=== PATIENT | male | born 1945 | race Caucasian/White ===

== ENCOUNTER 2023-05-29 11:20 | Observation (INO) | payer OTHER, SELFPAY ==
[2023-05-29] VITALS (8 sets, daily range): BP systolic 149–160; BP diastolic 54–106; PULSE 104–107; RESP 18–24; TEMP 36.2–36.8; O2SAT 89–92; BMI 43.4; BMI 46.2
--- NOTE | 2023-05-29 11:35 | XR_ITS ---
The [address] [address] Patient Name: HILARY WHARTON MRN: [id number] date: 1945 Sex: M Assigned Patient Location: ER Current Patient Location: Accession/Order Number: [id number] Exam Date: 05/29/2023 11:57 Report Date: 05/29/2023 12:50 At the request of: GIBRAN JOSUE Procedure: XR foot LT min 3V EXAM: XR foot LT min 3V, XR ankle LT min 3V HISTORY: Diabetic wound COMPARISON: None. FINDINGS: 3 radiographs of the left foot and 3 radiographs of the left ankle were obtained. No acute fracture or dislocation. Moderate degenerative changes to the left foot and left ankle. Soft tissue swelling over the lateral ankle. No cortical erosive changes. XR/XR foot LT min 3V IMPRESSION: Soft tissue swelling over the medial ankle and medial foot. No acute osseous abnormality. No cortical erosive changes. Electronically authenticated by: KHAI TILLMAN Date: 05/29/2023 12:50
--- NOTE | 2023-05-29 11:35 | XR_ITS ---
The [address] [address] Patient Name: HILARY WHARTON MRN: [id number] date: 1945 Sex: M Assigned Patient Location: ER Current Patient Location: Accession/Order Number: [id number] Exam Date: 05/29/2023 11:57 Report Date: 05/29/2023 12:50 At the request of: GIBRAN JOSUE Procedure: XR ankle LT min 3V EXAM: XR foot LT min 3V, XR ankle LT min 3V HISTORY: Diabetic wound COMPARISON: None. FINDINGS: 3 radiographs of the left foot and 3 radiographs of the left ankle were obtained. No acute fracture or dislocation. Moderate degenerative changes to the left foot and left ankle. Soft tissue swelling over the lateral ankle. No cortical erosive changes. XR/XR ankle LT min 3V IMPRESSION: Soft tissue swelling over the medial ankle and medial foot. No acute osseous abnormality. No cortical erosive changes. Electronically authenticated by: KHAI TILLMAN Date: 05/29/2023 12:50
--- NOTE | 2023-05-29 11:35 | ECG_ITS ---
The [facility] Test Date: 2023-05-29 Pat Name: HILARY WHARTON Department: Room: - Gender: Male Naturopathic Physician: : 1945 Requested By: IDALMIS AMATO Order Number: [id number] Reading MD: LIZET HAHN Measurements Intervals [place] Rate: 105 P: 30 TN: 188 QRS: -78 QRSD: 136 T: 72 QT: 368 QTc: 429 Interpretive Statements 1120 Sinus tachycardia 1970 with occasional ectopic premature complexes 2450 Right bundle branch block 2630 Left anterior fascicular block 9150 abnormal ECG Electronically Signed On 06-05-2023 23:06:50 EST by LIZET HAHN
--- NOTE | 2023-05-29 11:37 | ED.GENADUL1 ---
HPI - General Adult General Chief complaint: Skin/Abscess/Foreign Body Stated complaint: ILL Time Seen by Provider: 05/29/23 11:33 Source: family Mode of arrival: stretcher Limitations: no limitations History of Present Illness HPI narrative: 78-year-old male presents to the emergency department for a painful wound to his left foot. He does not know how long it has been there but it has been hurting for a month. There has been some drainage from it as well. No known fever. He is a poor historian. Related Data Allergies Allergy/AdvReac Type Severity Reaction Status Date / Time Tetanus Vaccines and Toxoid Allergy Unknown Verified 05/29/23 11:40 Review of Systems ROS Narrative Not obtainable, poor historian [facility] Medical History (Updated 05/29/23 @ 12:53 by Jack Kimbrough MD) History of hypothyroidism ?Z86.39 - Personal history of other endocrine, nutritional and metabolic disease (ICD-10) History of glaucoma ?Z86.69 - Personal history of other diseases of the nervous system and sense organs (ICD-10) History of CVA (cerebrovascular accident) ?Z86.73 - Personal history of transient ischemic attack (TIA), and cerebral infarction without residual deficits (ICD-10) History of hypertension ?Z86.79 - Personal history of other diseases of the circulatory system (ICD-10) History of COPD ?Z87.09 - Personal history of other diseases of the respiratory system (ICD-10) Diabetes ?E11.9 - Type 2 diabetes mellitus without complications (ICD-10) Exam Narrative Exam Narrative: Nurses note and vital signs reviewed and patient is not hypoxic. General: The patient appears in no apparent respiratory distress. Patient is resting comfortably on cart. Skin: Warm, dry, no pallor noted. There is no rash noted. Head: Normocephalic, atraumatic, thick neck Eye: Normal conjunctiva, no drainage Ears, Nose, Mouth, and Throat: oral mucosa is moist. Nares patent. Cardiovascular: Regular Rate and Rhythm Respiratory: Patient is in no distress, no accessory muscle use, lungs are clear to auscultation, no wheezing, rales or rhonchi GI: Morbidly obese, nontender Musculoskeletal: The patient appears to have chronic swelling in both lower extremities. Just distal to the left lateral malleolus is a nickel sized ulceration with surrounding erythema and a small amount of drainage at the center. He has various other healing wounds on both legs. There is no drainage from any of these. Neurological: Awake and alert Psychiatric: Cooperative Constitutional Vital Signs, click to edit/add: Last Vital Signs Temp 97.5 F L 05/29/23 11:27 Pulse 107 H 05/29/23 11:27 Resp 24 05/29/23 11:27 BP 156/85 H 05/29/23 11:27 Pulse Ox 89 L 05/29/23 12:27 O2 Del Method Room Air 05/29/23 12:27 Course Vital Signs Vital signs: Vital Signs Temperature 97.5 F L 05/29/23 11:27 Pulse Rate 107 H 05/29/23 11:27 Respiratory Rate 05/29/23 11:27 Blood Pressure 156/85 H 05/29/23 11:27 Pulse Oximetry 90 L 05/29/23 11:27 Oxygen Delivery Method Room Air 05/29/23 11:27 Temperature 97.5 F L 05/29/23 11:27 Pulse Rate 107 H 05/29/23 11:27 Respiratory Rate 05/29/23 11:27 Blood Pressure 156/85 H 05/29/23 11:27 Pulse Oximetry 89 L 05/29/23 12:27 Oxygen Delivery Method Room Air 05/29/23 12:27 Medical Decision Making MDM Narrative Medical decision making narrative: The patient has a diabetic foot infection. Cultures are taken and x-rays are pending. He is being given IV Zosyn and vancomycin and is being admitted. Findings are discussed with the patient and his family. I have also spoken to Dr. Du. Differential Diagnosis Differential Diagnosis: Diabetic foot infection, osteomyelitis, cellulitis Lab Data Lab results reviewed: Yes I reviewed the patient's lab results Labs: Lab Results 05/29/23 Range/Units 11:55 WBC 11.9 H (4.0-11.0) 10^3/uL RBC 5.27 (4.70-6.10) 10^6/uL Hgb 14.5 (14.0-18.0) g/dL Hct 48.5 (42.0-54.0) % MCV 92.0 (80.0-94.0) fL MCH 27.5 (25.9-34.0) pg MCHC 29.9 (29.9-35.2) g/dL RDW 13.9 (11.0-15.0) % Plt Count 246 (150-450) 10^3/uL MPV 9.8 (9.5-13.5) fL Neut % (Auto) 73.0 (43.0-75.0) % Lymph % (Auto) 15.5 L (20.5-60.0) % [place] % (Auto) 6.8 (1.7-12.0) % Eos % (Auto) 2.1 (0.9-7.0) % Baso % (Auto) 1.0 (0.2-2.0) % Neut # (Auto) 8.7 H (1.4-6.5) 10^3/uL Lymph # (Auto) 1.9 (1.2-3.8) 10^3/uL [place] # (Auto) 0.8 (0.3-0.8) 10^3/uL Eos # (Auto) 0.3 (0.0-0.7) 10^3/uL Baso # (Auto) 0.1 (0.0-0.1) 10^3/uL Abs Immat Gran (auto) 0.19 H (0.00-0.03) 10^3/uL Imm/Tot Granulo (auto) 1.6 H (0.0-0.5) % ESR 103 H (<=20) mm/hr Lactate 1.7 (0.4-2.0) mmol/L C-Reactive Protein 2.17 H (<=0.50) mg/dL Imaging Data Foot and ankle x-ray: My impression: No acute findings, radiologist's reading is pending. Discharge Plan Discharge Chief Complaint: Skin/Abscess/Foreign Body Clinical Impression: Diabetic foot infection Patient Disposition: Admitted As Inpatient Time of Disposition Decision: 12:53 Condition: Good Referrals: Shaheed Silva MD [Primary Care Provider] - 1 week
[2023-05-29 12:06] LABS: Basophils Absolute Auto 0.1 10^3/uL (0.0-0.1); Eosinophils Absolute Auto 0.3 10^3/uL (0.0-0.7); Eosinophils Percent Auto 2.1 % (0.9-7.0); Hematocrit 48.5 % (42.0-54.0); Hemoglobin 14.5 g/dL (14.0-18.0); Immature Granulocytes Abs Auto 0.19 10^3/uL (0.00-0.03); Immature Granulocytes Pct Auto 1.6 % (0.0-0.5); Lymphocytes Absolute Auto 1.9 10^3/uL (1.2-3.8); Lymphocytes Percent Auto 15.5 % (20.5-60.0); Mean Corpuscular HGB Conc 29.9 g/dL (29.9-35.2); Mean Corpuscular Hemoglobin 27.5 pg (25.9-34.0); Mean Platelet Volume 9.8 fL (9.5-13.5); Monocytes Absolute Auto 0.8 10^3/uL (0.3-0.8); Monocytes Percent Auto 6.8 % (1.7-12.0); Neutrophils Absolute Auto 8.7 10^3/uL (1.4-6.5); Platelet Count 246 10^3/uL (150-450); Red Blood Count 5.27 10^6/uL (4.70-6.10); Red Cell Distribution Width 13.9 % (11.0-15.0); White Blood Count 11.9 10^3/uL (4.0-11.0)
[2023-05-29 12:16] LABS: Erythrocyte Sedimentation Rate 103 mm/hr (<=20)
[2023-05-29 12:38] LABS: Lactate/Lactic Acid 1.7 mmol/L (0.4-2.0)
[2023-05-29 12:47] LABS: C Reactive Protein 2.17 mg/dL (<=0.50)
[2023-05-29 13:19] LABS: PROCALCITONIN 0.14 ng/mL (0.00-0.50)
[2023-05-29 13:26] LABS: Alanine Aminotransferase 39 U/L (16-63); Albumin Globulin Ratio 0.6; Albumin Level 2.7 g/dL (3.4-5.0); Alkaline Phosphatase 129 U/L (46-116); Anion Gap 14.2; Aspartate Amino Transferase 36 U/L (15-37); BUN Creatinine Ratio 12.3; Bilirubin Total 0.5 mg/dL (0.2-1.0); Calcium 9.3 mg/dL (8.5-10.1); Carbon Dioxide 29.6 mmol/L (21.0-32.0); Chloride 103 mmol/L (98-107); Estimated GFR (African America >60 (>=60); Estimated GFR (Non-African Ame 50 (>=60); Globulin 4.4 g/dL; Glucose 338 mg/dL (74-106); Potassium 4.8 mmol/L (3.5-5.1); Sodium 142 mmol/L (136-145); Total Protein 7.1 g/dL (6.4-8.2)
--- NOTE | 2023-05-29 13:52 | P.HP_ITS ---
H&P: HPI History of Present Illness Chief complaint: ILL Narrative: Patient had called the office earlier today. Patient having increasing swelling and pain in his left lower leg. She is looking at the wound it has been progressively getting worse she can see bone sticking out. So I recommended ER. In ER, does not appear to have bone protruding. But definite progression of his abscess and ulcer. Patient mated for IV antibiotics and wound therapy evaluation. Review of Systems ROS Status of ROS 10 or more systems reviewed and unremark able except as noted in history and below [facility] Medical History (Updated 05/29/23 @ 12:53 by Jack Kimbrough MD) History of hypothyroidism ?Z86.39 - Personal history of other endocrine, nutritional and metabolic disease (ICD-10) History of glaucoma ?Z86.69 - Personal history of other diseases of the nervous system and sense organs (ICD-10) History of CVA (cerebrovascular accident) ?Z86.73 - Personal history of transient ischemic attack (TIA), and cerebral infarction without residual deficits (ICD-10) History of hypertension ?Z86.79 - Personal history of other diseases of the circulatory system (ICD- 10) History of COPD ?Z87.09 - Personal history of other diseases of the respiratory system (ICD- 10) Diabetes ?E11.9 - Type 2 diabetes mellitus without complications (ICD-10) Meds Home Medications and Allergies Allergies Allergy/AdvReac Type Severity Reaction Status Date / Time Tetanus Vaccines and Toxoid Allergy Unknown Verified 05/29/23 11:40 Exam Constitutional Vital Signs, click to edit/add: Last Vital Signs Temp 97.5 F L 05/29/23 11:27 Pulse 107 H 05/29/23 11:27 Resp 24 05/29/23 11:27 BP 156/85 H 05/29/23 11:27 Pulse Ox 89 L 05/29/23 12:27 O2 Del Method Room Air 05/29/23 12:27 Documenting provider has reviewed patient's vital signs: yes Common normals: no apparent distress HENNY Common normals: normocephalic and head/scalp atraumatic (Left facial droop from old CVA) Chest Common normals: inspection of chest normal Respiratory Common normals: normal respiratory effort and no retractions Cardio Common normals: regular rhythm; irregular rate Rate: tachycardic Results Labs Labs: Short CBC 05/29/23 Range/Units 11:55 WBC 11.9 H (4.0-11.0) 10^3/uL Hgb 14.5 (14.0-18.0) g/dL Hct 48.5 (42.0-54.0) % Plt Count 246 (150-450) 10^3/uL BMP 05/29/23 11:55 Sodium 142 Potassium 4.8 Chloride 103 Carbon Dioxide 29.6 BUN 17.0 Creatinine 1.38 H Glucose 338 H Calcium 9.3 Liver Function 05/29/23 Range/Units 11:55 Total Bilirubin 0.5 (0.2-1.0) mg/dL AST 36 (15-37) U/L ALT 39 (16-63) U/L Alkaline Phosphatase 129 H (46-116) U/L Albumin 2.7 L (3.4-5.0) g/dL Assessment and Plan Assessment and Plan (1) Diabetic foot infection: Plan Sinus tachycardia, uncontrolled hypertension, leukocytosis, uncontrolled diabetes mellitus secondary to diabetic foot ulcer with acute kidney injury. IV antibiotics, consultation to wound management. Blood culture and wound cultures pending. Track CRPs and ESR daily. Poorly controlled diabetes mellitus-insulin sliding scale CVA with left-sided weakness. Patient may need rehab with prolonged IV antibiotics for this wound. Place patient consultation to social worker health services Hypertension-continue with home medications With the severity of his foot infection, poorly controlled diabetes, patient will require at least a 2 to 3-day hospitalization spanning more than [address] patient on inpatient status
[2023-05-29] MEDS: PIPERACILLIN SODIUM/TAZOBACTAM 3.375 GM in 0.9 % SODIUM CHLORIDE 50 ML IV ×2 (13:59→22:24)
[2023-05-29] MEDS: VANCOMYCIN HCL 2,000 MG in 0.9 % SODIUM CHLORIDE 500 ML 250 MG IV (14:12)
[2023-05-29 14:38] LABS: Erythrocyte Sedimentation Rate 112 mm/hr (<=20)
[2023-05-29 15:27] LABS: Lactate/Lactic Acid 1.9 mmol/L (0.4-2.0)
--- NOTE | 2023-05-29 16:07 | P.PODCN_ITS ---
[facility] - Podiatry Data of Consult Patient: new to practice Consult date: 05/29/23 Requesting physician: Shaheed Silva MD Primary care provider: Shaheed Silva MD Consult Narrative Reason for consult: Left ankle and heel heel ulcer, diabetic foot infection Narrative: 78-year-old male [facility] hypothyroid, hypertension COPD and uncontrolled diabetes presents to [facility] for worsening left lateral ankle and heel ulceration. States it has been present for about 1 month, believes it is from rubbing in the AFO. He is a poor historian, his provided most of the history. States they have not had any treatments for the wounds thus far. She became concerned as he was experiencing worsening pain and she was concerned for the appearance of the wound. He is wheelchair-bound and spends most of his time during the day in a wheelchair with the legs in dependent position and heels resting on the foot rest. He denies any constitutional symptoms at time of visit. cc:: CC: Shaheed Silva MD [facility] Medical History (Updated 05/29/23 @ 12:53 by Jack Kimbrough MD) History of hypothyroidism ?Z86.39 - Personal history of other endocrine, nutritional and metabolic disease (ICD-10) History of glaucoma ?Z86.69 - Personal history of other diseases of the nervous system and sense organs (ICD-10) History of CVA (cerebrovascular accident) ?Z86.73 - Personal history of transient ischemic attack (TIA), and cerebral infarction without residual deficits (ICD-10) History of hypertension ?Z86.79 - Personal history of other diseases of the circulatory system (ICD-10) History of COPD ?Z87.09 - Personal history of other diseases of the respiratory system (ICD- 10) Diabetes ?E11.9 - Type 2 diabetes mellitus without complications (ICD-10) Exam Narrative Exam Narrative: Vascular: DP and PT pulses faintly palpable bilaterally. CFT intact to digits. Skin temperature warm to proximal distal without focal increase. Venous stasis dermatitis of the bilateral lower extremities, erythema to the lateral ankle periwound region. 2+ pitting edema noted bilaterally. Neuro: Light touch and gross sensation diminished. Protective sensation diminished. Derm: Full-thickness ulceration left lateral ankle approximately 2 cm x 2 cm x 0.2 cm with fibrotic base. No active drainage. Negative probe to bone. Full- thickness ulceration left posterior heel, fibrogranular base central necrotic plug probing to subcutaneous layer. Negative probe to bone. No active drainage.. Ulcerative erythema to the lateral ankle and posterior heel. MSK: Strength and range of motion deferred. Left foot deformity noted with inversion of the hindfoot and plantarflexion of the ankle rest. He wears dropfoot AFO. No fluctuance crepitus or bogginess. No pain with calf or thigh compression. Constitutional Vital Signs, click to edit/add: Last Vital Signs Temp 97.5 F L 05/29/23 11:27 Pulse 106 H 05/29/23 14:45 Resp 20 05/29/23 14:45 BP 149/106 H 05/29/23 14:45 Pulse Ox 90 L 05/29/23 14:45 O2 Del Method Room Air 05/29/23 12:27 Assessment and Plan Assessment and Plan (1) Diabetic foot infection: Plan Patient examined evaluated. All findings discussed with patient all questions answered by satisfaction. Pertinent labs and imaging reviewed. WBC 11.9. ESR 112, CRP 217, glucose was over 300 today. Left ankle ulcer is 100% fibrotic, left heel ulcer mixed fibrogranular base, appears pressure related in nature. Negative probe to bone. No active drainage or purulence, however there is erythema in the EJ ulcerative region. Currently on IV Vanco and Zosyn. Discussed with patient and his that based on the appearance of the wounds I would recommend excisional debridement possible graft application in the operative room setting. Will discuss with Dr. Du in regards of timing, likely OR . LLE wounds dressed with Betadine moistened gauze, dry sterile dressing and light Wesley compression. . Educated on the importance of offloading pressure points at all times when resting. Will discuss with Dr. Du in regards to OR timing. Rest per primary, please call with questions or concerns.
[2023-05-29 18:29] LABS: Glucometer 247 mg/dL (74-106)
[2023-05-29] MEDS: INSULIN ASPART 300 UNIT/3 ML PEN SUBQ (19:25)
[2023-05-29 20:44] LABS: Glucometer 250 mg/dL (74-106)
[2023-05-30] VITALS (10 sets, daily range): BP systolic 119–154; BP diastolic 64–80; PULSE 85–102; RESP 14–24; TEMP 36.6–36.9; O2SAT 86–95
[2023-05-30 02:28] LABS: Bilirubin Urine NEGATIVE (NEGATIVE); Blood Urine MODERATE (NEGATIVE); Clarity Urine CLEAR (CLEAR); Color Urine YELLOW (YELLOW); Glucose Urine UA 500 mg/dL (NEGATIVE); Ketones Urine NEGATIVE (NEGATIVE); Leukocyte Esterase Urine NEGATIVE (NEGATIVE); Nitrite Urine NEGATIVE (NEGATIVE); Protein Urine >=300 mg/dL (NEG/TRACE); Specific Gravity Urine >=1.030 (1.005-1.025); Urobilinogen Urine 0.2 EU/dL (0.2-1.0); pH Urine 5.5 (5.0-9.0)
[2023-05-30 02:41] LABS: Urine Microscopic Indicated YES
[2023-05-30 02:43] LABS: Bacteria Urine NONE SEEN #/HPF (NONE SEEN); Cast Seen? NONE SEEN #/LPF (NONE SEEN); Crystals Seen? None Seen #/HPF (None Seen); Mucus Urine TRACE (NONE SEEN); RBC Urine 0-2 #/HPF (0-2); Squamous Epithelial Cell Urine NONE SEEN #/LPF (NONE/RARE); WBC Urine NONE SEEN #/HPF (NONE SEEN)
[2023-05-30] MEDS: PIPERACILLIN SODIUM/TAZOBACTAM 3.375 GM in 0.9 % SODIUM CHLORIDE 50 ML IV ×3 (05:32→21:26)
[2023-05-30 05:36] LABS: Basophils Absolute Auto 0.1 10^3/uL (0.0-0.1); Basophils Percent Auto 0.9 % (0.2-2.0); Eosinophils Absolute Auto 0.3 10^3/uL (0.0-0.7); Eosinophils Percent Auto 2.2 % (0.9-7.0); Hematocrit 47.6 % (42.0-54.0); Immature Granulocytes Abs Auto 0.16 10^3/uL (0.00-0.03); Immature Granulocytes Pct Auto 1.2 % (0.0-0.5); Lymphocytes Percent Auto 15.1 % (20.5-60.0); Mean Corpuscular HGB Conc 29.4 g/dL (29.9-35.2); Mean Corpuscular Hemoglobin 27.5 pg (25.9-34.0); Mean Corpuscular Volume 93.5 fL (80.0-94.0); Mean Platelet Volume 9.9 fL (9.5-13.5); Monocytes Absolute Auto 1.1 10^3/uL (0.3-0.8); Monocytes Percent Auto 8.5 % (1.7-12.0); Neutrophils Absolute Auto 9.3 10^3/uL (1.4-6.5); Neutrophils Percent Auto 72.1 % (43.0-75.0); Platelet Count 251 10^3/uL (150-450); Red Blood Count 5.09 10^6/uL (4.70-6.10); Red Cell Distribution Width 13.9 % (11.0-15.0)
[2023-05-30 06:01] LABS: Alanine Aminotransferase 35 U/L (16-63); Albumin Globulin Ratio 0.6; Albumin Level 2.3 g/dL (3.4-5.0); Alkaline Phosphatase 103 U/L (46-116); Anion Gap 12.4; Aspartate Amino Transferase 25 U/L (15-37); BUN Creatinine Ratio 11.6; Bilirubin Total 0.4 mg/dL (0.2-1.0); Carbon Dioxide 28.6 mmol/L (21.0-32.0); Chloride 102 mmol/L (98-107); Estimated GFR (African America >60 (>=60); Estimated GFR (Non-African Ame 54 (>=60); Globulin 3.9 g/dL; Glucose 268 mg/dL (74-106); Sodium 139 mmol/L (136-145); Total Protein 6.2 g/dL (6.4-8.2)
[2023-05-30 06:06] LABS: C Reactive Protein 2.53 mg/dL (<=0.50)
[2023-05-30 06:28] LABS: Erythrocyte Sedimentation Rate 87 mm/hr (<=20)
[2023-05-30 07:23] LABS: Glucometer 248 mg/dL (74-106)
[2023-05-30] MEDS: LEVOTHYROXINE SODIUM 100 MCG TABLET PO (07:51)
[2023-05-30] MEDS: INSULIN ASPART 300 UNIT/3 ML PEN SUBQ ×4 (07:52→21:28)
--- NOTE | 2023-05-30 07:53 | PM.PN ---
Progress Note: Subjective Subjective Interval history: Patient admitted yesterday for worsening left heel & ankle ulcerations. patient relates pain primarily to his heel. He does not follow with a wound center. He denies systemic signs of infection Exam Narrative Exam Narrative: Vascular: DP and PT pulses faintly palpable bilaterally. CFT intact to digits. Skin temperature warm to proximal distal without focal increase. 1 cm of surrounding erythema Neuro: Light touch and gross sensation diminished. Protective sensation diminished. Derm: Full-thickness ulceration left lateral ankle approximately with fibrotic base. Negative probe to bone. and no drainage or malodor Full-thickness ulceration left posterior heel, fibrogranular base. negative probe to bone and no drainage or malodor MSK: no pain on palpation. No fluctuance. Active range of motion of the ankle and foot elicits no pain. Passive intact range of motion of the toes elicits no pain Constitutional Vital Signs, click to edit/add: Last Vital Signs Temp 98.0 F 05/30/23 07:45 Pulse 98 H 05/30/23 07:45 Resp 16 05/30/23 07:45 BP 131/80 05/30/23 07:45 Pulse Ox 91 L 05/30/23 07:45 O2 Del Method Room Air 05/30/23 07:45 O2 Flow Rate 2 05/30/23 05:06 Progress Note: Objective Labs Labs: Short CBC 05/29/23 05/30/23 Range/Units 11:55 04:53 WBC 11.9 H 13.0 H (4.0-11.0) 10^3/uL Hgb 14.5 14.0 (14.0-18.0) g/dL Hct 48.5 47.6 (42.0-54.0) % Plt Count 246 251 (150-450) 10^3/uL BMP 05/29/23 05/30/23 11:55 04:53 Sodium 142 139 Potassium 4.8 4.0 Chloride 103 102 Carbon Dioxide 29.6 28.6 BUN 17.0 15.0 Creatinine 1.38 H 1.29 Glucose 338 H 268 H Calcium 9.3 9.0 Liver Function 05/29/23 05/30/23 Range/Units 11:55 04:53 Total Bilirubin 0.5 0.4 (0.2-1.0) mg/dL AST 36 25 (15-37) U/L ALT 39 35 (16-63) U/L Alkaline Phosphatase 129 H 103 (46-116) U/L Albumin 2.7 L 2.3 L (3.4-5.0) g/dL Urine 05/30/23 Range/Units 02:23 Urine Color Yellow (YELLOW) Urine Clarity Clear (CLEAR) Urine pH 5.5 (5.0-9.0) Ur Specific [place] >=1.030 A (1.005-1.025) Urine Protein >=300 A (NEG/TRACE) mg/dL Urine Glucose (UA) 500 A (NEGATIVE) mg/dL Progress Note: A&P Assessment and Plan (1) Diabetic foot infection: (2) Pressure ulcer, heel, left, unstageable: Assessment and Plan: offloading with elevation and application of Santyl daily Dressing changes daily avoid Wesley wraps and dressings should be loosely applied (3) Pressure ulcer, ankle, left, unstageable: (4) Cellulitis of left foot: Assessment and Plan: MRI of the foot was reviewed which is negative for osteomyelitis of the heel. Lateral ankle was not visualized. Plan patient seen and evaluated. I communicated my plan with Dr. Silva Recommended local wound care with Santyl and offloading - bony boot to be applied when in bed wound may be washed with soap and water Weightbearing as tolerated no surgical intervention planned will follow Urinary Catheter Management Urinary Catheter Management Urethral: Cath placed during this visit: yes Urethral indwelling: No Insertion date: 05/29/23 Insertion time: 23:53
[2023-05-30] MEDS: PROSTAT 15 GM PROTEIN/100 CAL 30 ML LIQUID PACKET PO ×2 (09:21→19:44)
[2023-05-30] MEDS: VENLAFAXINE HCL ER 150 MG CAPSULE PO (09:21)
[2023-05-30] MEDS: INSULIN DETEMIR 300 UNIT/3 ML INSULN.PEN 20 UNIT SQ (09:22)
[2023-05-30] MEDS: ENSURE HP 237 ML LIQUID PO ×2 (09:22→19:44)
[2023-05-30] MEDS: OMEPRAZOLE 40 MG CAPSULE.DR PO (09:22)
[2023-05-30] MEDS: TIMOLOL MALEATE 0.5% OP SOL 100 DROPS/5 ML BOTTLE 1 DROP OP (09:22)
[2023-05-30] MEDS: JUVEN PACKET 1 PACKET PO ×2 (09:23→19:44)
[2023-05-30] MEDS: APIXABAN 5 MG TABLET 2.5 MG PO ×2 (09:23→19:44)
--- NOTE | 2023-05-30 09:29 | XR_ITS ---
The [address] [address] Patient Name: HILARY WHARTON MRN: [id number] date: 1945 Sex: M Assigned Patient Location: MS Current Patient Location: MS Accession/Order Number: [id number] Exam Date: 05/30/2023 12:00 Report Date: 05/30/2023 12:40 At the request of: IDALMIS AMATO Procedure: XR chest 2V EXAMINATION: XR chest 2V HISTORY: mejia ; shortness of breath with exertion COMPARISON: XR chest 06/05/2021 FINDINGS: LUNGS: Underexpanded lungs with mild stranding bilaterally and slight peripheral septal thickening. Asymmetric mild opacity of left lung. VASCULATURE: No increased pulmonary vasculature. PLEURA: No pneumothorax, effusion, or pleural thickening. CARDIAC: No cardiomegaly or cardiac silhouette abnormality. MEDIASTINUM: Chronic widening, likely due to supine position during imaging. BONES: No fracture or visible bone lesion. OTHER: Negative. XR/XR chest 2V IMPRESSION: 1. Suspect bilateral pulmonary edema, left greater than right. Multifocal infectious infiltrates is not completely excluded. Electronically authenticated by: GRAHAM SCHWARTZ Date: 05/30/2023 12:40
--- NOTE | 2023-05-30 09:29 | MR_ITS ---
The [address] [address] Patient Name: HILARY WHARTON MRN: [id number] date: 1945 Sex: M Assigned Patient Location: MS Current Patient Location: MS Accession/Order Number: [id number] Exam Date: 05/30/2023 11:10 Report Date: 05/30/2023 12:46 At the request of: IDALMIS AMATO Procedure: MR foot LT wo con HISTORY: The patient reportedly has a history of diabetes and has a wound along the plantar and lateral aspect of the left heel. Evaluate for possible osteomyelitis. MR foot LT wo con: 05/30/2023 11:10 AM EST COMPARISON: Radiographs left foot 05/29/2023. TECHNIQUE: Multiplanar, multisequence MRI images of the left foot were obtained without contrast. FINDINGS: A few images are slightly degraded by motion artifact. The major ligaments of the ankle appear grossly intact. The bone marrow signal intensity is age appropriate. There is severe atrophy of the musculature of the foot which is most compatible with the sequela of a long-standing peripheral neuropathy. There appears to be a small superficial soft tissue ulcer along the plantar and lateral aspect of the heel with edema-like stranding of the adjacent subcutaneous fat no focal fluid signal intensity collection is seen. There appear to be at least mild degenerative changes of the first MTP joint. On the sagittal images there appears to be a probable nondisplaced transverse fracture of the neck of the second metatarsal with surrounding bone marrow edema in this region. There also appears to be bone marrow edema within the base of the second proximal phalanx. There are hammertoe deformities. MR/MR foot LT wo con IMPRESSION: 1. There appears to be a small superficial soft tissue ulcer along the plantar and lateral aspect of the heel with adjacent subcutaneous edema which may be due to a cellulitis. However, no soft tissue abscess or MRI evidence of osteomyelitis is seen in this region. 2. There appears to be a probable nondisplaced transverse fracture of the neck of the second metatarsal with surrounding bone marrow edema and a probable bone contusion within the base of the second proximal phalanx. 3. There is severe atrophy of the musculature of the foot which is most compatible with the sequela of a long-standing peripheral neuropathy. 4. Please note that this examination is slightly degraded by motion artifact. Electronically authenticated by: IDALMIS IRVING Date: 05/30/2023 12:46
--- NOTE | 2023-05-30 09:31 | P.PN_ITS ---
Progress Note: Subjective Subjective Interval history: He was still some significant soreness at the heel and ankle. Open wounds as outlined by wound consultation team Exam Constitutional Vital Signs, click to edit/add: Last Vital Signs Temp 98.0 F 05/30/23 07:45 Pulse 98 H 05/30/23 07:45 Resp 16 05/30/23 07:45 BP 131/80 05/30/23 07:45 Pulse Ox 91 L 05/30/23 07:45 O2 Del Method Room Air 05/30/23 07:45 O2 Flow Rate 2 05/30/23 05:06 Documenting provider has reviewed patient's vital signs: yes Common normals: no apparent distress HENMT Common normals: normocephalic and head/scalp atraumatic (Left facial droop from old CVA) Chest Common normals: inspection of chest normal Respiratory Common normals: normal respiratory effort and no retractions Auscultation: rhonchi and wheezes Cardio Common normals: regular rhythm; irregular rate Rate: tachycardic Progress Note: Objective Labs Labs: Short CBC 05/29/23 05/30/23 Range/Units 11:55 04:53 WBC 11.9 H 13.0 H (4.0-11.0) 10^3/uL Hgb 14.5 14.0 (14.0-18.0) g/dL Hct 48.5 47.6 (42.0-54.0) % Plt Count 246 251 (150-450) 10^3/uL BMP 05/29/23 05/30/23 11:55 04:53 Sodium 142 139 Potassium 4.8 4.0 Chloride 103 102 Carbon Dioxide 29.6 28.6 BUN 17.0 15.0 Creatinine 1.38 H 1.29 Glucose 338 H 268 H Calcium 9.3 9.0 Liver Function 05/29/23 05/30/23 Range/Units 11:55 04:53 Total Bilirubin 0.5 0.4 (0.2-1.0) mg/dL AST 36 25 (15-37) U/L ALT 39 35 (16-63) U/L Alkaline Phosphatase 129 H 103 (46-116) U/L Albumin 2.7 L 2.3 L (3.4-5.0) g/dL Urine 05/30/23 Range/Units 02:23 Urine Color Yellow (YELLOW) Urine Clarity Clear (CLEAR) Urine pH 5.5 (5.0-9.0) Ur Specific [place] >=1.030 A (1.005-1.025) Urine Protein >=300 A (NEG/TRACE) mg/dL Urine Glucose (UA) 500 A (NEGATIVE) mg/dL Progress Note: A&P Assessment and Plan (1) Diabetic foot infection: Plan Sinus tachycardia, uncontrolled hypertension, leukocytosis, uncontrolled diabetes mellitus secondary to diabetic foot ulcer with acute kidney injury. 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 Hypertension-continue with home medications With the severity of his foot infection, poorly controlled diabetes, patient will require at least a 1-2 more-day hospitalization spanning more than [address] patient on inpatient status-checking MRI scan today, possible surgical intervention ? Urinary Catheter Management Urinary Catheter Management Urethral: Cath placed during this visit: yes Urethral indwelling: No Insertion date: 05/29/23 Insertion time: 23:53
--- NOTE | 2023-05-30 09:31 | CM.NOTE ---
Rounds made with Dr. Silva, discussed with pt about skilled therapy at discharge. Pt is in agreement with skilled, PT and OT will evaluate pt. Pt's choice would be to go to [facility]. He wants to be able to continue to see Dr. Silva.
--- NOTE | 2023-05-30 09:56 | SWNOTE1 ---
MURPHY spoke to case mangement and pt will need SNF and he has chosen [facility] since he has been there in the past. MURPHY to send referral. He will be a precert.
[2023-05-30] MEDS: VANCOMYCIN HCL 1,500 MG in 0.9 % SODIUM CHLORIDE 500 ML 250 MG IV (10:38)
[2023-05-30 10:55] LABS: Glucometer 245 mg/dL (74-106)
--- NOTE | 2023-05-30 12:29 | SWNOTE1 ---
MURPHY sent referral to [facility]. Referral included face sheet, ER note, physician notes, labs, vitals, nursing notes, med list, and OT note.
--- NOTE | 2023-05-30 13:56 | SWNOTE1 ---
[facility] able [facility]. [facility] is aware pt will be going to surgery tomorrow. Will need PT/OT for precert. SW will send once PT eval is in.
[2023-05-30 15:58] LABS: Glucometer 222 mg/dL (74-106)
--- NOTE | 2023-05-30 16:13 | SWNOTE1 ---
MURPHY sent over PT/OT notes to [facility].
[2023-05-30] MEDS: IPRATROPIUM/ALBUTEROL SULFATE 3 ML AMPUL.NEB IH ×2 (16:26→23:36)
[2023-05-30 18:46] LABS: Bilirubin Urine SMALL (NEGATIVE); Blood Urine LARGE (NEGATIVE); Clarity Urine CLEAR (CLEAR); Color Urine BROWN (YELLOW); Glucose Urine UA 500 mg/dL (NEGATIVE); Ketones Urine TRACE mg/dL (NEGATIVE); Leukocyte Esterase Urine NEGATIVE (NEGATIVE); Nitrite Urine NEGATIVE (NEGATIVE); Protein Urine >=300 mg/dL (NEG/TRACE); Specific Gravity Urine 1.025 (1.005-1.025)
[2023-05-30 18:55] LABS: RBC Urine >100 #/HPF (0-2); WBC Urine 0-2 #/HPF (NONE SEEN)
[2023-05-30 18:56] LABS: Bacteria Urine SMALL #/HPF (NONE SEEN); Cast Seen? NONE SEEN #/LPF (NONE SEEN); Crystals Seen? None Seen #/HPF (None Seen); Mucus Urine NONE SEEN (NONE SEEN); Squamous Epithelial Cell Urine NONE SEEN #/LPF (NONE/RARE); Urine Culture Indicated ALREADY ORDERED
[2023-05-30] MEDS: LACTATED RINGER'S SOLUTION 1,000 ML 125 ML IV (19:45)
[2023-05-30 21:23] LABS: Glucometer 185 mg/dL (74-106)
[2023-05-30] MEDS: LATANOPROST 0.005% 2.5 ML BOTTLE 1 DROP OP (21:27)
[2023-05-31 03:49] VITALS: BP 130/81; PULSE 93; RESP 20; TEMP 36.7; O2SAT 90
[2023-05-31] MEDS: VANCOMYCIN HCL 1,500 MG in 0.9 % SODIUM CHLORIDE 500 ML 250 MG IV (03:53)
[2023-05-31] MEDS: LEVOTHYROXINE SODIUM 100 MCG TABLET PO (03:56)
[2023-05-31] MEDS: LACTATED RINGER'S SOLUTION 1,000 ML 125 ML IV (03:57)
[2023-05-31 04:19] VITALS: PULSE 98; RESP 20; O2SAT 93
[2023-05-31] MEDS: IPRATROPIUM/ALBUTEROL SULFATE 3 ML AMPUL.NEB IH ×2 (04:19→12:01)
[2023-05-31 05:04] LABS: Basophils Absolute Auto 0.1 10^3/uL (0.0-0.1); Basophils Percent Auto 0.8 % (0.2-2.0); Eosinophils Absolute Auto 0.4 10^3/uL (0.0-0.7); Eosinophils Percent Auto 2.9 % (0.9-7.0); Hematocrit 45.9 % (42.0-54.0); Hemoglobin 13.4 g/dL (14.0-18.0); Immature Granulocytes Abs Auto 0.17 10^3/uL (0.00-0.03); Immature Granulocytes Pct Auto 1.3 % (0.0-0.5); Lymphocytes Absolute Auto 2.2 10^3/uL (1.2-3.8); Lymphocytes Percent Auto 17.1 % (20.5-60.0); Mean Corpuscular HGB Conc 29.2 g/dL (29.9-35.2); Mean Corpuscular Hemoglobin 27.7 pg (25.9-34.0); Mean Corpuscular Volume 94.8 fL (80.0-94.0); Mean Platelet Volume 9.9 fL (9.5-13.5); Monocytes Absolute Auto 1.2 10^3/uL (0.3-0.8); Monocytes Percent Auto 9.3 % (1.7-12.0); Neutrophils Absolute Auto 8.8 10^3/uL (1.4-6.5); Neutrophils Percent Auto 68.6 % (43.0-75.0); Platelet Count 242 10^3/uL (150-450); Red Blood Count 4.84 10^6/uL (4.70-6.10); Red Cell Distribution Width 14.2 % (11.0-15.0); White Blood Count 12.9 10^3/uL (4.0-11.0)
[2023-05-31 05:26] LABS: Erythrocyte Sedimentation Rate 120 mm/hr (<=20)
[2023-05-31 05:42] LABS: Alanine Aminotransferase 27 U/L (16-63); Albumin Globulin Ratio 0.6; Albumin Level 2.2 g/dL (3.4-5.0); Alkaline Phosphatase 100 U/L (46-116); Anion Gap 11.2; Aspartate Amino Transferase 18 U/L (15-37); BUN Creatinine Ratio 18.9; Bilirubin Total 0.4 mg/dL (0.2-1.0); Calcium 9.1 mg/dL (8.5-10.1); Chloride 106 mmol/L (98-107); Estimated GFR (African America >60 (>=60); Estimated GFR (Non-African Ame 55 (>=60); Glucose 204 mg/dL (74-106); Potassium 4.2 mmol/L (3.5-5.1); Sodium 143 mmol/L (136-145); Total Protein 6.2 g/dL (6.4-8.2)
[2023-05-31 05:56] LABS: C Reactive Protein 3.87 mg/dL (<=0.50)
[2023-05-31] MEDS: PIPERACILLIN SODIUM/TAZOBACTAM 3.375 GM in 0.9 % SODIUM CHLORIDE 50 ML IV (05:59)
--- NOTE | 2023-05-31 08:11 | PM.PN ---
Progress Note: Subjective Subjective Interval history: Patient admitted yesterday for worsening left heel & ankle ulcerations. patient relates pain primarily to his heel. He does not follow with a wound center. He denies systemic signs of infection Exam Constitutional Vital Signs, click to edit/add: Last Vital Signs Temp 98.0 F 05/31/23 03:49 Pulse 98 H 05/31/23 04:19 Resp 20 05/31/23 04:19 BP 130/81 05/31/23 03:49 Pulse Ox 93 L 05/31/23 04:19 O2 Del Method Nasal Cannula 05/31/23 04:19 O2 Flow Rate 2 05/31/23 04:19 Progress Note: Objective Labs Labs: Short CBC 05/31/23 Range/Units 04:31 WBC 12.9 H (4.0-11.0) 10^3/uL Hgb 13.4 L (14.0-18.0) g/dL Hct 45.9 (42.0-54.0) % Plt Count 242 (150-450) 10^3/uL BMP 05/31/23 04:31 Sodium 143 Potassium 4.2 Chloride 106 Carbon Dioxide 30.0 BUN 24.0 H Creatinine 1.27 Glucose 204 H Calcium 9.1 Liver Function 05/31/23 Range/Units 04:31 Total Bilirubin 0.4 (0.2-1.0) mg/dL AST 18 (15-37) U/L ALT 27 (16-63) U/L Alkaline Phosphatase 100 (46-116) U/L Albumin 2.2 L (3.4-5.0) g/dL Urine 05/30/23 Range/Units 15:00 Urine Color Brown A (YELLOW) Urine Clarity Clear (CLEAR) Urine pH 6.0 (5.0-9.0) Ur Specific [place] 1.025 (1.005-1.025) Urine Protein >=300 A (NEG/TRACE) mg/dL Urine Glucose (UA) 500 A (NEGATIVE) mg/dL Progress Note: A&P Assessment and Plan (1) Diabetic foot infection: (2) Pressure ulcer, heel, left, unstageable: (3) Pressure ulcer, ankle, left, unstageable: (4) Cellulitis of left foot: Urinary Catheter Management Urinary Catheter Management Urethral: Cath placed during this visit: yes Urethral indwelling: No Insertion date: 05/29/23 Insertion time: 23:53
[2023-05-31] MEDS: FUROSEMIDE 40 MG/4 ML VIAL IVP (08:52)
[2023-05-31] MEDS: COLLAGENASE CLOSTRIDIUM HIST. 250 UNITS/GM 30 GRAM TUBE 1 APPLIC TOPICAL (08:53)
[2023-05-31] MEDS: TIMOLOL MALEATE 0.5% OP SOL 100 DROPS/5 ML BOTTLE 1 DROP OP (08:54)
[2023-05-31] MEDS: INSULIN ASPART 300 UNIT/3 ML PEN SUBQ ×2 (08:56→11:54)
[2023-05-31] MEDS: VENLAFAXINE HCL ER 150 MG CAPSULE PO (09:00)
[2023-05-31] MEDS: OMEPRAZOLE 40 MG CAPSULE.DR PO (09:01)
[2023-05-31] MEDS: INSULIN DETEMIR 300 UNIT/3 ML INSULN.PEN 20 UNIT SQ (09:03)
[2023-05-31 11:17] LABS: Glucometer 212 mg/dL (74-106)
[2023-05-31 12:05] VITALS: O2SAT 90
--- NOTE | 2023-05-31 12:21 | P.DS_ITS ---
DS: Providers Provider Date of admission: 05/29/23 15:20 Primary care physician: Shaheed Silva MD Consults: 05/29/23 13:43 Consult to Business Consult Routine Reason for consult:: Custodial Other reason:: Start precert today Consult to Wound Care Routine Consulting Provider: Jona Fisher Reason for consultation: ulcer Has provider been notified: No 05/29/23 13:46 Occupational Therapy Eval and Treat Routine Reason for consultation: Only if needed for Rehab Has provider been notified: No Physical Therapy Eval and Treat Routine Reason for consultation: Eval and Treat Has provider been notified: No DS: Diagnosis Discharge Diagnosis (1) Diabetic foot infection: (2) Pressure ulcer, heel, left, unstageable: (3) Pressure ulcer, ankle, left, unstageable: (4) Cellulitis of left foot: DS: Summary Hospital Course Hospital Course: Patient was admitted with failed outpatient treatment of his diabetic foot ulcer, poorly controlled diabetes mellitus, treated with aggressive with IV antibiotics. At the time of admission both I and the brand marketing manager felt this was likely to progress despite intensive medical treatment. However over the first 24 hours the wound did appear to be much improved. Initial thought was for surgical intervention and placement was placed on the operating room schedule, that was canceled today as wound has continued to look better since admission. No further debridement was necessary. This patient will be continue to be followed as an outpatient through the wound clinic. That was the treatment prior to coming into the emergency room that was failing at the time. Discussion versus placement versus home, patient would prefer to be at home and I would agree. Sugars are still uncontrolled but we can manage that part at home, he is to see wound therapy next week. Patient definitely improved faster than anticipated again if surgery was initially anticipated and that has been deemed to be not necessary. Patient will be discharged home in improving condition. Medications see list. Follow-up with me next week and podiatry/wound next week as well Time Spent with Patient Time attestation: Total time spent providing and/or coordinating discharge services: Exam Constitutional Vital Signs, click to edit/add: Last Vital Signs Temp 98.0 F 05/31/23 03:49 Pulse 98 H 05/31/23 04:19 Resp 20 05/31/23 04:19 BP 130/81 02/15/24 03:49 Pulse Ox 90 L 05/31/23 12:05 O2 Del Method Room Air 05/31/23 12:05 O2 Flow Rate 2 05/31/23 04:19 Documenting provider has reviewed patient's vital signs: yes Common normals: no apparent distress HENMT Common normals: normocephalic and head/scalp atraumatic (Left facial droop from old CVA) Chest Common normals: inspection of chest normal Respiratory Common normals: normal respiratory effort and no retractions Auscultation: rhonchi and wheezes Cardio Common normals: regular rhythm; irregular rate Rate: tachycardic DS: Data Data Completed and Pending Labs on day of discharge: Labs from last 24 hours 05/31/23 05/31/23 05/30/23 11:16 04:31 21:12 WBC 12.9 H RBC 4.84 Hgb 13.4 L Hct 45.9 MCV 94.8 H MCH 27.7 MCHC 29.2 L RDW 14.2 Plt Count 242 MPV 9.9 Neut % (Auto) 68.6 Lymph % (Auto) 17.1 L Sam[place] % (Auto) 9.3 Eos % (Auto) 2.9 Baso % (Auto) 0.8 Neut # (Auto) 8.8 H Lymph # (Auto) 2.2 Sampson # (Auto) 1.2 H Eos # (Auto) 0.4 Baso # (Auto) 0.1 Abs Immat Gran (auto) 0.17 H Imm/Tot Granulo (auto) 1.3 H ESR 120 H Sodium 143 Potassium 4.2 Chloride 106 Carbon Dioxide 30.0 Anion Gap 11.2 BUN 24.0 H Creatinine 1.27 Est GFR ( Amer) >60 Est GFR (Non-Af Amer) 55 L BUN/Creatinine Ratio 18.9 Glucose 204 H Calcium 9.1 Total Bilirubin 0.4 AST 18 ALT 27 Alkaline Phosphatase 100 C-Reactive Protein 3.87 H NT-Pro-B Natriuret Pep 810.0 Total Protein 6.2 L Albumin 2.2 L Globulin 4.0 Albumin/Globulin Ratio 0.6 Urine Color Urine Clarity Urine pH Ur Specific [place] Urine Protein Urine Glucose (UA) Urine Ketones Urine Occult Blood Urine Nitrite Urine Bilirubin Urine Urobilinogen Ur Leukocyte Esterase Urine RBC Urine WBC Ur Squamous Epith Cells Urine Crystals Urine Bacteria Urine Casts Urine Mucus Urine Yeast Ur Culture Indicated? POC Glucose 212 H 185 H 05/30/23 05/30/23 15:57 15:00 WBC RBC Hgb Hct MCV MCH MCHC RDW Plt Count MPV Neut % (Auto) Lymph % (Auto) Sampson % (Auto) Eos % (Auto) Baso % (Auto) Neut # (Auto) Lymph # (Auto) Sampson # (Auto) Eos # (Auto) Baso # (Auto) Abs Immat Gran (auto) Imm/Tot Granulo (auto) ESR Sodium Potassium Chloride Carbon Dioxide Anion Gap BUN Creatinine Est GFR ( Amer) Est GFR (Non-Af Amer) BUN/Creatinine Ratio Glucose Calcium Total Bilirubin AST ALT Alkaline Phosphatase C-Reactive Protein NT-Pro-B Natriuret Pep Total Protein Albumin Globulin Albumin/Globulin Ratio Urine Color Brown A Urine Clarity Clear Urine pH 6.0 Ur Specific [place] 1.025 Urine Protein >=300 A Urine Glucose (UA) 500 A Urine Ketones Trace A Urine Occult Blood Large A Urine Nitrite Negative Urine Bilirubin Small A Urine Urobilinogen 1.0 Ur Leukocyte Esterase Negative Urine RBC >100 A Urine WBC 0-2 A Ur Squamous Epith Cells None seen Urine Crystals None seen Urine Bacteria Small A Urine Casts None seen Urine Mucus None seen Urine Yeast Seen A Ur Culture Indicated? Already ordered POC Glucose 222 H Preliminary micro results at discharge 05/29/23 11:55 Wound Culture - Preliminary Ankle - Wound Enterococcus faecalis Enterobacter hormaechei Klebsiella pneumoniae Discharge Plan Discharge Disposition: Home Health Service Condition: Good Discharge Medications: New doxycycline monohydrate 100 mg capsule 100 mg PO BID 28 Days Qty: 56 0RF amoxicillin-pot clavulanate 875-125 mg tablet 1 tab PO Q12H Qty: 56 0RF Continued Eliquis 2.5 mg tablet 2.5 mg PO Q12H pantoprazole 40 mg tablet,delayed release (DR/EC) 40 mg PO DAILY levothyroxine 100 mcg tablet 100 mcg PO DAILY venlafaxine 150 mg capsule,extended release 24hr 150 mg PO DAILY timolol maleate 0.5 % drops 1 drp OPHTHALMIC (EYE) DAILY latanoprost 0.005 % drops 1 drp OPHTHALMIC (EYE) BEDTIME insulin glargine [Lantus Solostar U-100 Insulin] 100 unit/mL (3 mL) insulin pen 20 unit SUBCUT DAILY Novolin N FlexPen 100 unit/mL (3 mL) insulin pen 8 unit SUBCUT BEDTIME Rx Instructions: 12 units subcutaneously in AM; Patient Instructions: Doxycycline (By mouth), Amoxicillin/Clavulanate Potassium (By mouth) Forms: Portal Instructions Follow Up Appointments: @ [facility] [address] [place] [address]
--- NOTE | 2023-05-31 12:29 | SWNOTE1 ---
Pt has decided he wants to go home and does not want to go to [facility]. He would like to do home health. He was supposed to have home health, not sure of company. He would like SW to call . SW to call.
--- NOTE | 2023-05-31 12:48 | SWNOTE1 ---
MURPHY spoke to pt's . She will get his room ready for him to return home. She is working on getting palliative care at the home. She would like to use [facility]. MURPHY sent face sheet, ER notes, podiatry notes, phsyician notes, and PT/OT to [facility].
--- NOTE | 2023-05-31 13:11 | PT.DAILY ---
Physical Therapy Daily Note PT Daily Note/Assess Start: 05/30/23 14:28 Freq: Status: Active Protocol: Document 05/31/23 11:20 SHERRY (Rec: 05/31/23 13:11 [email or web address] [id number]) Physical Therapy Daily Note/Assessment Time In/Time Out Time In 11:20 Time Out 11:50 Subjective Subjective Patient reports wanting to go home now vs SNF. Is willing to get up, back is hurting in bed. Therapeutic Activity Time Therapeutic Activity Minutes (minutes) 25 Therapeutic Activity Units 2 Therapeutic Activity Treatment Therapeutic Activity Comments Supine to sit to R side ( strong side) min assist x 1 and mod assist x1. Initially required mod assist to maintain unsupported seated balance, but once with bearings was able to maintain with supervision. Seated exercises performed in unsupported seated position from edge of bed 10 reps. Sit to stand x2 with min assist x2 Sit to supine mod assist x2. Total Physical Therapy Time Total Therapy Minutes 25 Total Physical Therapy Units 2 Summary Daily Note Summary Improved ability with bed mobility and transfers. Patient reports helps him with these at home, as he only pivots to power chair. Patient would benefit from PT if going home to improve strength and ease of transfers .
--- NOTE | 2023-05-31 13:55 | SWNOTE1 ---
MURPHY spoke to [facility] and they are able to accept. SW notified nursing, waiting on order from doctor.
--- NOTE | 2023-05-31 14:25 | SWNOTE1 ---
DC med rec, CRF, and dc summary sent to [facility]. SW set up [facility] and they will be here at 4:30pm. SW notified nursing and pt's of time.
--- NOTE | 2023-05-31 14:58 | PM.PN ---
Progress Note: Subjective Subjective Interval history: patient seen at bedside this morning and he has been nothing by mouth since midnight. I reviewed the findings on his MRI that he obtained yesterday. Currently denies pain. He denies systemic signs of infection. Exam Narrative Exam Narrative: wounds on his posterior left heel and lateral hindfoot/ankle are without erythema. Fibrous wound bed is noted and negative probe to bone. No pain on palpation. Patient is able to fire all muscle groups and there is no calf pain on squeeze Constitutional Vital Signs, click to edit/add: Last Vital Signs Temp 98.0 F 05/31/23 03:49 Pulse 98 H 05/31/23 04:19 Resp 20 05/31/23 04:19 BP 130/81 05/31/23 03:49 Pulse Ox 90 L 05/31/23 12:05 O2 Del Method Room Air 05/31/23 12:05 O2 Flow Rate 2 05/31/23 04:19 Progress Note: Objective Labs Labs: Short CBC 05/31/23 Range/Units 04:31 WBC 12.9 H (4.0-11.0) 10^3/uL Hgb 13.4 L (14.0-18.0) g/dL Hct 45.9 (42.0-54.0) % Plt Count 242 (150-450) 10^3/uL BMP 05/31/23 04:31 Sodium 143 Potassium 4.2 Chloride 106 Carbon Dioxide 30.0 BUN 24.0 H Creatinine 1.27 Glucose 204 H Calcium 9.1 Liver Function 05/31/23 Range/Units 04:31 Total Bilirubin 0.4 (0.2-1.0) mg/dL AST 18 (15-37) U/L ALT 27 (16-63) U/L Alkaline Phosphatase 100 (46-116) U/L Albumin 2.2 L (3.4-5.0) g/dL Urine 05/30/23 Range/Units 15:00 Urine Color Brown A (YELLOW) Urine Clarity Clear (CLEAR) Urine pH 6.0 (5.0-9.0) Ur Specific [place] 1.025 (1.005-1.025) Urine Protein >=300 A (NEG/TRACE) mg/dL Urine Glucose (UA) 500 A (NEGATIVE) mg/dL Progress Note: A&P Assessment and Plan (1) Diabetic foot infection: (2) Pressure ulcer, heel, left, unstageable: (3) Pressure ulcer, ankle, left, unstageable: (4) Cellulitis of left foot: Plan [facility] ( Augmentin and doxycycline) Strict offloading for his left heel with bony boots. Daily dressing changes with application of Santyl to both wounds Follow-up in the wound center within one week Urinary Catheter Management Urinary Catheter Management Urethral: Cath placed during this visit: yes, but has since been removed by the nurse Urethral indwelling: No Insertion date: 05/29/23 Insertion time: 23:53 Removal date: 05/31/23 Removal time: 14:35
[2023-05-31 15:25] VITALS: BP 132/82; PULSE 98; RESP 20; TEMP 37.1; O2SAT 91
[2023-06-01 15:15] VITALS: BMI 24.1
== END 2023-05-31 16:31 | disposition home health service (06) ==
LOC: ER 12:53 → MS 05-30 08:01
PROVIDERS: Admitting Provider Family Medicine; Emergency Provider Emergency Medicine; PCP Family Medicine; Visit Provider Family Medicine
DX: E11.628 Type 2 diabetes mellitus with other skin complications (principal); L03.116 Cellulitis of left lower limb; L89.520 Pressure ulcer of left ankle, unstageable; L89.620 Pressure ulcer of left heel, unstageable; N17.9 Acute kidney failure, unspecified; E11.65 Type 2 diabetes mellitus with hyperglycemia; R00.0 Tachycardia, unspecified; I69.392 Facial weakness following cerebral infarction; E66.01 Morbid (severe) obesity due to excess calories; I10 Essential (primary) hypertension; Z68.42 Body mass index [BMI] 45.0-49.9, adult; E03.9 Hypothyroidism, unspecified; J44.9 Chronic obstructive pulmonary disease, unspecified; I87.2 Venous insufficiency (chronic) (peripheral); R06.02 Shortness of breath; Z99.3 Dependence on wheelchair; B95.2 Enterococcus as the cause of diseases classified elsewhere; B96.1 Klebsiella pneumoniae [K. pneumoniae] as the cause of diseases classified elsewhere; B96.89 Other specified bacterial agents as the cause of diseases classified elsewhere
CPT/HCPCS: 36415; 51702; 71046; 73610; 73630; 73718; 80053; 81001; 82948; 83605; 83880; 84145; 85025; 85652; 86140; 87040; 87070; 87086; 87150; 87186; 93005; 94640; 94667; 94668; 94761; 96361; 96365; 96366; 96367; 96368; 96375; 96376; 97110; 97165; 97530; 97535; 99285; G0378; J1940; J2543; J3370

== ENCOUNTER 2023-06-15 10:44 | Outpatient (OUT) | payer OTHER, SELFPAY ==
--- OUTSIDE RECORDS SUMMARY | 2023-06-15 10:53 | XMS_ITS | CCD ---
Author Name Unknown Address [facility] 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 Name Role Phone Unavailable Primary Care Provider Unavailabl e PROVIDER, UNKNOWN Admitting Unavailable PROVIDER, UNKNOWN Attending Unavailable PROVIDER, UNKNOWN Admitting Unavailable PROVIDER, UNKNOWN Attending Unavailable LIMA ., DR RAYGOZA Primary Care Unavailable HAY ., DR ROSS Admitting Unavailable HAY ., DR ROSS Attending Unavailable LANA, DR GRAHAM Cabrera Consulting Unavailable HAY ., DR ROSS Consulting Unavailable EUGENIO HOUGH Consulting Unavailable HAY ., DR ROSS Admitting Unavailable HAY ., DR ROSS Attending Unavailable JOHNSONY ., DR RAYGOZA Primary Care Unavailable HAY ., DR ROSS Consulting Unavailable BALBINA FRIAS Consulting Unavailable RADHA CONNELLY Consulting Unavailable LIMA ., DR RAYGOZA Admitting Unavailable LIMA ., DR RAYGOZA Attending Unavailable LIMA ., DR RAYGOZA Primary Care Unavailable Idalmis Silva Primary Care Physician Gerson Luz Attending Unavailable Allergies Allergy Classification Reported Allergen(s) Allergy Type Date of Onset Reaction(s) Facility (1 source) Allopurinol Drug Allergy [facility] Repository (1 source) No Known Medication Allergies; Translations: [No Known Medication Allergies] Propensity to adverse reactions (disorder) [facility] Repository Medications Current Medications Medication Drug Class(es) Dates Sig (Normalized) Sig (Original) aspirin 81 mg oral tablet (1 source) Platelet Aggregation Inhibitor, Nonsteroidal Anti-inflammatory Drug Start: 03-03-2019 take 1 mg by mouth once daily aspirin 81 mg oral tablet mg tab(s), Oral, Daily, Refills(s) 0 Start Date: 03/03/19 Status: Ordered Lipitor (1 source) HMG-CoA Reductase Inhibitor Start: 03-03-2019 Lipitor Oral, Daily, Refills(s) 0 Start Date: 03/03/19 Status: Ordered Plavix (1 source) P2Y12 Platelet Inhibitor Start: 03-03-2019 Plavix Oral, Refills(s) 0 Start Date: 03/03/19 Status: Ordered Amaryl (1 source) Sulfonylurea Start: 03-03-2019 Amaryl Oral, Daily, Refills(s) 0 Start Date: 03/03/19 Status: Ordered Synthroid (1 source) l-Thyroxine Start: 03-03-2019 Synthroid Oral, Daily, Refills(s) 0 Start Date: 03/03/19 Status: Ordered metFORMIN (1 source) Biguanide Start: 03-03-2019 metformin Oral, Refills(s) 0 Start Date: 03/03/19 Status: Ordered Ramipril (1 source) Angiotensin Converting Enzyme Inhibitor Start: 03-03-2019 ramipril Oral, Daily, Refills(s) 0 Start Date: 03/03/19 Status: Ordered venlafaxine (1 source) Serotonin and Norepinephrine Reuptake Inhibitor Start: 03-03-2019 Effexor XR Oral, Daily, Refills(s) 0 Start Date: 03/03/19 Status: Ordered Problems Active Problems Problem Classification Problem Date Documented Date Episodic/Chronic Acute cerebrovascular disease (1 source) Cerebrovascular accident 03-03-2019 Chronic Anxiety disorders (1 source) Anxiety disorder, unspecified; Translations: [ANXIETY DISORDER UNSPECIFIED] Onset: 06-21-2022 Chronic Chronic obstructive pulmonary disease and bronchiectasis (1 source) Chronic obstructive pulmonary disease, unspecified; Translations: [COPD UNSPECIFIED] Onset: 06-21-2022 Chronic Diabetes mellitus without complication (2 sources) Type 2 diabetes mellitus without complications; Translations: [Diabetes mellitus] Onset: 06-21-2022 03-03-2019 Chronic Disorders of lipid metabolism (2 sources) Pure hypercholesterolemia, unspecified; Translations: [Hypercholesterolemia ] Onset: 05-09-2022 03-03-2019 Chronic E Codes: Fall (2 sources) Fall; Translations: [Unspecified fall, initial encounter] Onset: 07-11-2022 Episodic Essential hypertension (2 sources) Essential (primary) hypertension; Translations: [Hypertensive disorder] Onset: 06-21-2022 03-03-2019 Chronic Genitourinary symptoms and ill-defined conditions (1 source) Genuine stress incontinence 03-03-2019 Chronic Genitourinary symptoms and ill-defined conditions (3 sources) Increased frequency of urination; Translations: [Nocturia] 03-03-2019 Episodic Hyperplasia of prostate (2 sources) Benign prostatic hyperplasia without lower urinary tract symptoms; Translations: [Benign prostatic hypertrophy with outflow obstruction] Onset: 06-21-2022 03-03-2019 Chronic Late effects of cerebrovascular disease (1 source) Hemiplegia and hemiparesis following cerebral infarction affecting left non-dominant side; Translations: [HEMIPLG FLW CEREB INFARCT LT N-DOM] Onset: 06-21-2022 Chronic Menopausal disorders (1 source) Hormone replacement therapy; Translations: [HORMONE REPLACEMENT THERAPY] Onset: 06-21-2022 Episodic Mood disorders (1 source) Depressive disorder 03-03-2019 Chronic Mood disorders (1 source) Mood disorders; Translations: [DEPRESSION UNSPECIFIED] Onset: 05-09-2022 Other aftercare (1 source) Other intermediate accountant (current) drug therapy; Translations: [OTH LONG-TERM CURRENT DRUG THERAPY] Onset: 06-21-2022 Episodic Other aftercare (1 source) nursing home (current) use of insulin; Translations: [LONG-TERM CURRENT USE OF INSULIN] Onset: 06-21-2022 Episodic Other circulatory disease (1 source) Personal history of transient ischemic attack (TIA), and cerebral infarction without residual deficits; Translations: [PERS HX TIA AND CI NO RESID DEFICIT] Onset: 05-09-2022 Episodic Other connective tissue disease (3 sources) Other specified soft tissue disorders; Translations: [OTHER SPEC SOFT TISSUE DISORDERS] Onset: 06-20-2022 Episodic Other injuries and conditions due to external causes (1 source) Abrasion; Translations: [Other injury of unspecified body region, initial encounter] Episodic Other injuries and conditions due to external causes (1 source) History of falling; Translations: [HISTORY OF FALLING] Onset: 06-21-2022 Episodic Other injuries and conditions due to external causes (1 source) Injury of head; Translations: [Unspecified injury of head, initial encounter] Onset: 07-11-2022 Episodic Other lower respiratory disease (1 source) Personal history of pneumonia (recurrent); Translations: [PERSONAL HX OF PNEUMONIA RECURRENT] Onset: 05-09-2022 Episodic Other non-traumatic joint disorders (1 source) Osteophyte, vertebrae; Translations: [OSTEOPHYTE VERTEBRAE] Onset: 05-09-2022 Chronic Other nutritional; endocrine; and metabolic disorders (1 source) Morbid obesity 03-03-2019 Chronic Other screening for suspected conditions (not mental disorders or infectious disease) (1 source) Raised prostate specific antigen 03-03-2019 Episodic Peripheral and visceral atherosclerosis (1 source) Peripheral vascular disease, unspecified; Translations: [PERIPHERAL VASCULAR DISEASE UNS] Onset: 06-21-2022 Chronic Residual codes; unclassified (1 source) Edema, unspecified; Translations: [EDEMA UNSPECIFIED] Onset: 06-21-2022 Episodic Residual codes; unclassified (1 source) H/O: anticoagulant therapy 03-03-2019 Episodic Screening and history of mental health and substance abuse codes (1 source) Tobacco use and exposure - finding 03-03-2019 Chronic Screening and history of mental health and substance abuse codes (1 source) Personal history of nicotine dependence; Translations: [PERSONAL HISTORY OF NICOTINE DEPEND] Onset: 06-21-2022 Episodic Spondylosis; intervertebral disc disorders; other back problems (1 source) Other intervertebral disc degeneration, lumbar region; Translations: [OTH IV DISC DEGEN LUMBAR REGION] Onset: 05-09-2022 Chronic Superficial injury; contusion (1 source) Superficial injury of head; Translations: [Contusion of other part of head, initial encounter] Onset: 07-11-2022 Episodic Thyroid disorders (1 source) Hypothyroidism, unspecified; Translations: [HYPOTHYROIDISM UNSPECIFIED] Onset: 06-21-2022 Chronic Unclassified (3 sources) LOW BACK PAIN, UNSPECIFIED; Translations: [LOW BACK PAIN, UNSPECIFIED] Onset: 05-09-2022 Unclassified (1 source) Drug therapy finding 03-03-2019 Past or Other Problems Problem Classification Problem Date Documented Da te Episodic/Chronic Other nutritional; endocrine; and metabolic disorders (1 source) Body mass index 40+ - severely obese Resolved: 03-03-2019 03-03-2019 Chronic Unclassified (1 source) LOW BACK PAIN, UNSPECIFIED; Translations: [LOW BACK PAIN, UNSPECIFIED] Onset: 05-05-2022 Results Test Name Value Interpretation Reference Range Facility EMS Documentationon 08-09-19 EMS Documentation Please click on link to see report [id number] xMCAwIFIgMTIyMCAwIFI gMiAw IFIgMTIyMSAwIFIgMTMx NQTpPGOuT5Wte4RSh9oo NQ0jSHOtSJN6RBZnYYE3 WLYzDT7gL1DxvWWb MKA7LwDxJTYcOYEiUZR6 BCIuKDStOBTshJSTk9pi FM6rOGAdQZN0CNXlAFY9 MQSlYH3iNTkuVN5j D2AdrdYdtCZwHFYoPMWb Mu0RBLKabYZiCPU4MG5P c2cigjFdAVInKUhiD2Vt XWKrNNnqLBQATx0i Ft3cqLu1D8GFDPBbFFW4 DPKaPx8LTWOmKLT4AnWd ESEwVLUxRLNyYYWbKz0E TPIpOWIcNUNGOz1y NDAcA6BvlQwaQXWXW2Uu fDNtC1B4gXyHoYS2JIJl VuO0WUGlOx3MN6BaLUF1 DENtHFcpZWAOIz4e Fv77VSNoXUMiQ2CovYO3 ZCQuAD72zbV3I0D0rJAr RYDdYT1BAWAjS4N+Pgpl mdHhRioRQuXeWM8y gkw5LX1GMA5fuQuhAsN3 VONDA+EoK0biBlrHslI6Au IGNzIDEgIHNjbgoxMCA3 OGQuBXuaQoe4LB05 WDTuecXSKsdaMKSaC66Q SQPoFvIxLzr7ATW3JhNy IA53KEOtXLchQvFuCC4k JET7YXJxEqMiCRuq Asp0WZ8qQbt6PGViNcGS AruiZeG7DAyiTu21XCPh OTIuNzUgLTAuNzUgcmUK Osc5ZZEqWsFkAhJd IDAuNzUgNTQgcmUKZgox WQP4ZNQsIJ73VFX8FENb NVocOcHtIK3hEEJ6OGUv EP83DXW7NWDmUZdw DxZqGO1zHHZ7WFKuIG03 BHX2TSMbTJvfRzB4Px8r JPN9HVNmEJ03LDNzPXNk cmUKZgozOTMuMjUg HeFtMBCmNuSyHXJ3IDWl DmJWQRLsImd1Hch7RJK9 XoMtWO56XQNkLBccAjQy VTY2VBG7VqOgIOIb HsBcmpYYHjawYEP4ATtx YoVsAX62FKXyPEZgKzIo wiWWDoj1DSLeLwQeQbx1 Dry6CCMeNcRcGPFg HH00UYGeKuRFHG63KHfd WWBbsyctHJ99LJZ5YKqa LFv6ZgMqBNUfKJZlMzOK BFBmi1IcJzDhDbt3 RPO7Qz17GJP8BrIvDPUq PS65KVBaQWvyKsPzLPI1 NQ1zJPU4BeJtBKMpUoFk keRBYkqxFHT9VbKe QHj1NF5iBwj0BITjPiUB ERTiDMK5GwS2VTZrOwNy SQB5VQDfFeTJVTk6WsZ0 BHK7HZ2oZKJiCjm6 BK89YWHeHHbsOnIfZJM7 OYQbJ95WHUFzXqWlGEE1 WgTsAyf9QxG1TA1rGpJh ZQpmCjAgIHNjbgox VA19KSO2UVtaLeNtGae8 FpZ5NU2bQvi7VNMqYaMK QV92NYcdXLSowzrlOQmo NCL4UlQkKwa2PcV9 BW4aMfPkSCpzLdSzKBFe labcRScaTLN0PhD0WGN8 Ff5qOVRtWL31VOCtMAbz GuAeRSByHA0tEBZ9 NzYgLTAuNzUgcmUKZgox JZY8SRKiRDI3NxIiNHCa SnTyllPDQzrxXMC8OdVy NuXuOU40OZMdMhwe BLRjJIfzBtR5HQ3hMHT7 RgWyYsXqAX82MCDiMfxm DRBrPShqPeRzMSC4JOGj L00FWJKdJtQbWHXt FwGwXNt3EcZwDRItRYKm EoENTONuw9NiTgZlEsl8 DCSrQx1oPYK1WrZwZBDt VS38EFYwHKlqExJn CyK4FVArEWB0Kyb6KM0y Bzz0QNQtWzJRRCL5ULP2 ES0kKVAdMBIzXqEgXRWj NaAwsrFTIzm6Cqys EZSvKLJsTaSjAJS3FvIp mdPTLtx2KRAbGHSxZCJt CnZlVGZ7TkGbluXDCpfv EevbYSZcl9BbUlPx Dv23LBI3TSyyTlEbORV4 AmY0DC7eHiRkDYtxTwRq BNIzyog4DhytMfAfBTm8 YQW5KY2wHICnIP34 GEIcHXxsWwCeEQA1CC12 XTM1BeWgTCSoLyGhrkBJ UkroUXY4IQJmJHh7CW3w Cse9YVVqVqINVHOj DKE6Mxo9ZXItOhHlFGK9 McCgecZYQul5MFFpLgMo ZTS3Fjv5VSJnAxAaCNF9 LjUgcmUKZgowLjkx XKVpv9ArYzPgSsz5VWO4 WGD2VgYjPVUbVCZnkuLX ThagLASvB48QYMJoJfWw HJPzByv4IMQ9TS89 WS9cKwm7GFZcCzKDKJHy WCOsTkS9OPR2OvYeXE61 LLHcEYbwFeJfNQH1MU78 RHG5GuCdBPNyDkKw ooTMAxbiDKT4BVKsNbPp XQ38RBEjKyOfEgAmakFA Zfq0RVLfVoNqSOJcSfU7 IDAuNzUgLTMyLjI1 FIRuHyBKXZ78SNvaYOQl hmioDB78STW6WHEbJRO4 NzQuNSAtMTIgcmUKZgow TROfO74DCXPiExKu Yib6DmK3FJQ8OO39DB8y Bvh9CWIwBnCHMGRcMwBq QuB3RHX7WuOrXF40TVKl JQchFyCeQLJeFZ46 LSO5VcPdSG25LVHuFArn PpCkBES3NE7eDXLcEuy1 SP51Gp11CBFePfNAUEq8 EiD5JSX1PU0jNIMy Jix7FL80Tt37BBWiAtIE OI03OXugAVUkrfdnYM13 HCVgSYssHSG1UlFwEIMi MTIgcmUKZgowICBz R84ACNIsWnUtUwZ7GfY3 YXB2MV15CQ7tXov1DJXy RgKMRH29SEiaARAeztnx NiAyOTQgNTYzLjI1 JI6fTW20NIQwVwTDOBOb z0MxWjT3AOH1Yw69LPT6 Ugm2QW33KK46RCGkTaEM LJ76AKbqUPLvwcpv IyZqUJUgUBYiYf10BJHh NDAuNSByZQpmCjEgIHNj lbu9Kr27TWEkIQIpIES7 Wd77MOLkUuMvBgAr rnUZPzqkTjiuDOJbd1Ig ZvIeZct5GKU6Cl32BDKz Nty0FP5sCE5zULOgAFzr OmSvEYMibmg0MB66 UVP0Dr00KZVcXbR1US5e DR5nKLIyMMmnEgPqWVH0 JHBoP06KYHRgZNZdISCj WURcJX3bVPPiLvBf SkGcglPESyclGXMvU81E FBL1Fku0DPJ0Ed19BYB4 HoXkWYXgRbV7VZJsVeGU TF64LMwoCZIruvtp MTUuNzUgMjgzLjUgNDku NSAtMjAuMjUgcmUKZgox UCJpI81XEIV1IrE4SCV6 Jn87UDW7HgBqPNJx UlR6VFVrJlBFZB25HUeu IHNjbgoxNjUuMjUgMjgz LjUgMjguNSAtMjAuMjUg ayVVQyvyZIDxV36G KTqeOpy5SRD6Ac11XCEz MV1xRN6mLRBjVElkRlYg MJO1CRQnK28ZPCbgQos3 WSB0Ij73ECGwBO7m RR2lHGKiQPtfQmAkOJXd bgoyMzUuNzUgMjgzLjUg MjUuNSAtMjAuMjUgcmUK UxpyLutjLKOfl8Ok UrWbMO72EZLdHSTfDOCs RX22KK7pID4cJIBcRZcr CjEgIHNjbgoyNjEuMjUg MjgzLjUgNjguMjUg HIVpLxU7YRWmYuYLAP57 MTggIHNjbgoyNjEuMjUg MjgzLjUgNjguMjUgLTIw GvR6LSLoQuHRDGIs g4QgUcBgFJ47OFF0Uo43 WMEgMdR1SP2aEY1zVGXn LXjgHrOuGQE3UBPrI95Q NhT4RfIaXkcgIzZv VHLiAsNvKFLhTjV8ULNv PuNDPTRzo2ZrNdZ9Js91 GXKtQPBfPEUnZw11HUOo MjAuMjUgcmUKZgow FsupDKBry6CpNhK6Of15 WAKbXOUvIBUlTi68MUMk MjAuMjUgcmUKZgoxICBz Y98ODTF7BdNxQoro LjUgMjMuMjUgLTIwLjI1 XJRwMmEKWP37KQdhFUVk hnj8NFfwEZLaSZLmKSLy Gd2jNFNwIkIkCbLa oeOITgrfICUvP20UIYSs Psm8FCR9Df01FFH8ZhOe YNJtUiF2YFSbXlNKWO43 JHxsBCGpkpf4VWBv NzUgMjgzLjUgMjguNSAt MjAuMjUgcmUKZgoxICBz O01AQFlzQlB9VHG9Mx27 TOR6EK7zZF5vQWDu TAspCiAfLQQ7DFQiA06G PHvpHbY8HXL0Is27YIB4 XA6iJI8gLPRyTNydBxLw IRDvwdb3YNgnYfPt MjgzLjUgMjUuNSAtMjAu MjUgcmUKZgowLjkxOCAg v8VjWoGdXO4mCQLnVZQt WMCdUK53GB3vVQ6z NSByZQpmCjEgIHNjbgo1 NDQuNzUgMjgzLjUgMjUu NSAtMjAuMjUgcmUKZgow KxyiELSey6HqKjX5 YV96OPMaAPItFXOuEW78 EQ3vRT9cXZMzQAxtKvFl GCQzuqo9QhTgZiRiPoyy LjUgOSAtMjAuMjUg yvJSQflzYvvkQAAco2Fd XyE9FK2kGQMoDTSpECG4 VC2yIK8kLMMuUVidYzIj LJJqtzg9Uw05CJXc NjMuMjUgNDIuNzUgLTIw WfT8QRCwXhBLAC58RFxc EVPlmbf7Km13EAJzKgPe MjUgNDIuNzUgLTIw KiB1EKSpXiUVLEJwc7Aa Ssz2PsRxNmRlPbS9PTYi YnM4OC9nJG6qLMWxQJtu NzMgOQW5SQXrB04A OTUuNSAyNjMuMjUgMjAu WyXuDZLaPlH8NIWtEsXY KKTno8UhFwTfSG03FILs NjMuMjUgNDkuNSAt MjAuMjUgcmUKZgowLjkx YXCkm6DfCrGaYT72AHCp NjMuMjUgNDkuNSAtMjAu MjUgcmUKZgoxICBz S94YPKA5OmO1BGR4Uq4d KDBgUR59UN8rLI0vOXNi KAjiLyYfXCS2PINc (more content not included)... Normal [facility] Coding Summary.on 07-14-2022 Coding Summary. CD:[id number] Ww+PGhlYWQ+TQ4DJHDgJ 07chCDemT6eA9OYSTvWI ywgQVBQTElOSyIgbmFtZ O9nfFGuXDOy IC8+UH8hPNEdBdebbIAs c4E7pMB7I07jra9gKUyg rEB5SOPaVwSsuaubm4fh qRe0FTmxDonpFxMp GUHpeB58MSH0dP53Rv03 fIUpfJHce0fyuRe7XfTe QUDzAJL5yWhkARyua3Dc CMMxQ41qlQFyw0H8 IGNvbGxhcHNlOyBlbXB0 wS5eVTfnjjetw6fdrmrv Vcx3lp28sRCfc5O8bFV6 G0IcjiL9NTSmcDEq ExeolYDWbG9kmzzot4iw qfcxUaHhVEBeZIi2PVs9 EQZrnUmvDxDaMD84GCY7 ECSedfRfX8RcPPKs oBygUaT6r0C3Vh1PY7GG PhioY9QPMMFOLJiarQU+ CK47qq71H7IzEjvkZhx3 CERuPNG9yNP2wM8i YPQuOSsaj7Y1kAT9V8Bt huNvmb0xy3etQVRfUTcr P94prZIvn2E0SVNdqPT5 TALdcPlhXlPhlN16 Oyc+JYCdoPexw1IbRlge t9tir6irzDo7MzkuQIFa noMetCbkDRD9y1XjFo7l FSWxqHL9gKI6yF2q EyDlGkR2QWoyG604LmXu mXWxIiizO59pR4FcvVX+ VQBsPvb5VRFdrNyfTC5t Q9AiLNJtjobbrAKe wWgkAA9vOCAuqcpoMUVh aG7bMBOsV4t3FgFiGdR5 IHtnW0RrXKJskdgiZn78 mA9iRdCmNfM7DWqb A3TrqlJ1UVPqlYWiJTvk QSN2H67ml1W2OTNkWVSp WSN1wCP6oP3kjDhxnrtg bGVmdDsgdmVydGlj XUvoEHmtB336EAOiiQzc PkNvZGluZyBEYXRlOiAg MDMvMzEvMjAyMzwvdGQ+ INFjUDI9fLafBWDl sXGyFOywFk2hoPwbxMhl WZ7sXYErnnvyQLFhiL9l ZYAqrVFrfErvPA2xQWQm cylao197StKiUTH7 ZSUjyAFnJ6VofH0fZlRj CAYtBYEvX8FmaGOnLEmj P298MDzbFpA7MWPietIx X1RuOJWwsXsyLbP6 i8K6Dp0Ar0SrgtyiQ9Nt kLMgJrXbOgkrOAg0V3Ko PjwvdHI+JK47LXQdNO89 MMa7EIR3pCavWVpo HUEdM4KqkV6oRaAfWYWt ZGRkOyc+PHRhYmxlIHdp ZHRoPScxMDAlJyBzdHls KO8zOq3wXCSoBLDg pFoadXXsFxAll5bkKMJx RIxsDN7ekIsjL7CraOE4 FMMmh2n8Uh90R54mO1Lm dXA+SFJoeVS7aQV8 lO4sFyXuWqQ0IDkwA188 UoDgaGSrJqxsi1vwy5rr lZz8AdU8GPBvikMmeIcz JSW7r3JyIk60R30t IHdpZHRoPSIxNSUiIHZh mYtumd0ljE9qSc3+PGNv kGJ5aUU9fQ6qJvLcMkX0 LXrjR996EaTtiXBt Ilwcr5arl0thbLo0EsXn EJXjjkFixAkmEFP9n1Dt Xg74U4NneSshi3CoPae3 xg97kMNrz7Z4mGQ1 N7DyNIZniqxiyHBayQjz GB2uNNYvhlbmRGMrcQ3f WMTjH1c7XuIxBeK2NLqb W2RrxrH0QUKogYQx JVPukROPpV1jcklzr4yq nvydKcLrVSHjPTq1DLw4 UUVygBymSpZkEDC0CdO2 DRV3yMDvlA4sdPhs xzkmzV6hAez+KGT1tWUd oCHSBI2tKdisyES+PHRk BAI0aRcrMYbcRKXjoD3k VHVdC1p6EqPmPeJ7 WFyeA1EmqxI3KFEcyUIm PDPvoYJXyU4mngosn4lz hulzFiEaOPYvVWk6VZy8 LWFsaWduOiBsZWZ0 DfS5OEH0kXIcnT1mnGqr nndurT8iUko+QmlydGgg WXI4JIo9O0VrAlt6FZBq iHkrAV6asVNrYHdo Hp9ryXtygUadUU5rEMRx exihw323QpEwi4ddZUDa pPHtSBdjZQA0D40ys2D8 HWPgEHBzAVD9jXP7 gP4eyTzyvdxvwOIhtOta wfGbtUrqJQlxTQrxK129 NABjkRwfMlJdPEd6G9El Gwx5TCUjbPooVD4o yNQdRXhbRy3ecBnwrFpy YH8hQUEgiheeg939TkGj l9ihQVBzwGHdASadWVC7 T40un6J1MUBtRKYi MLH7nNU9tC6dyZgswogt bGVmdDsgdmVydGljYWwt WNqoL356GCYenOkqEoCh aIp1U8WjYvi3LCAd hUiwLV1efLGiSOkiFn8j vGnxrGwlGX8dFQXmject y188PvYvf3phSKYvoIDq BHeqXMW7R97in2D4 DDFjCDCdXAX0uSK8eV0k bGlnbjogbGVmdDsgdmVy mGpgHAkiYJmhO007UHKf cDsnPlBhdGllbnQg XIobGGh4H9DlWcvmlDF+ XI37CVPuLT79cJOedKYs l3sqzRp1LaVbDLFtVQK2 fDbjLOdyv8ErDCAs R25rwRRki5S2KQHcvOxw nZUoVfFupOP4sE9cRQxu liszo6pffreaBqwpa3pt tj33eH10X83nKOkv ZHRoPSIzMCUiIHZhbGln zw6txO8sHo0+PGNvbCB3 zLG4qQ0tXYMbPdN2BIrx X272HkTazZRoHtmm u2ohj8cjvAl8RwR0TFGl ckUavFxrMZA4p6UoYd56 C59cJWkeYFBtLKSdKASf ONCaeLxhdo6ufL0x Ii8+BLRidDP7nPX1fE3k IwHsUiZ2VZomT859ZiCf sQVkAgsbH61lS2CqnTT+ TYDsUhm0IISulYhb SJ1gmFRdAEyjFc1yYOT0 UiXnKeGxDEplR4EsNSIk zoxbivedhMW6DJLdMLWy iK18Mp2ifAskTSEq zNAGiT1vvtdzu9fbilwz PqPhNUQeSNp8ACt4JGJd pRgdQmMlCTM4YfN1HFK6 dJWifA9vfLmawjum pM8cA0AgUNAlrkckPi65 mI0rWeSeMxY9WRweCkt+ X0BOHTKRNVYDOg3FKII8 U2HqUnz5TVKboAid NW9agTTrHZnhOl7taPtx fAtkRH3bMONhrdjoBFEj nQ2dLBXjcPPpcQxmVZ7i BJFqqmeqo722JsKf YLI0KYQtfCNmD2JzkU7h CyYnWVQaRDAjN5OwcITd SEzuX125NUnnBpG0CYUw jtPtM8QnOJGlhKsz WlB1w9I2Hi0nYI5kEa4x CCR3YH50UL48yTMkb7W4 sRQ4J0OkQALgjvfqvqmj gUB2PBOdCTTvmY05 vWFrSDnwZz3az8X3v157 AJHcBDFjbY05Kv4fpTjk SAYmfTZQiG1fkrgnt3ok cjogIzAwMDAwMDt0 BRe7WDFayUadJmUdWAA1 HxO4RSO3lBMcfL8efXlt pabpkS4mNzy+NzYgWWVh vfQ8Z4UjFwf7BRYr rDlxPM8ndLHdLDzeOj6q pGqcjIuwPX0vOOYjpdyv MBSspN0tJPGsmWGfrBvm WA4qEZZiufdxm100 ToCiYFZ4FVLgoEAtI8Ub uZ7xRbIfLWVrZZBbG4Ij vOXvUJqtX723MXlcZuN7 LMPevoFoH4UpXIAr hRcpLzJ1f8S3Su9CNJxa AI19YB13xVGrr5V2iNP9 E5BxMKPuetgwarnxvND9 JTIrDEZokO49tTAm JHgfTm4gx6A7k086VSDx UYDxdW14Le8rpMzxZAEd yZTSkV3epsqkz8xpmxvs PbAyEIPiWAz6YDk2 YCHmcIeaYpMrMHV5BjE6 AOQ2jOOsoK5fzFoziisx nZ1aZbq+QE0doinbihZ4 JU22AG80S4EqQgks dGFibGU+PHRhYmxlIHdp ZHRoPScxMDAlJyBzdHls RK1qWs6jZRLsVLBuxWgk gBTbJhSqw1fkPWXb SAwoKL0yjXbaZ7LpjYN2 APYuw0v8Us03V02pL2Sh dXA+WMQoyTD5uGP1oK3v SiZkOmV4FVzjR956 ElZytAUzVbguu7aqo2lp aSr6QnEfNVUejiLxmRuu TBN9y4CxFz14F86fEJml ZHRoPSIyMCUiIHZh hMwllh0ttA4oZm6+PGNv kSX3iAF6lU3iUhBrZmU1 JOeqE173RjYnwXPgRhch T71xM4XupRZ+PHRy Xnk2MTDhgPiqGZ9byWTz RRrmGc8cFJO3PqWgCzQp YDqhG8ArMSFbireiyqvc aQN7CRUjGZJfgU03 He6zkMvrTj4wHAAzEWC1 KCXvrETdL0QweT9kXwLf RBFeABCuN4LqhZHiKIho Z003KJrcKrN7YXEl lqKbC6NbRNCrlEwsPvD2 k2M7Xr1JiJkbnYHfPK9i EtCzUUm6I8MgJzd3JKEm vNwwQR3zvNFdFKlf Nw7orXjwiIkhCL0pZCLr vddmo932VrXws4fxXKOz pHDtORlaLDX5L79ab7J0 ESWpSGQvAPN8dRO3 hF1fsMhxeyiooENehRpz kcAzsUalDAggJWmgR807 OOJplIxgBjPJGqv5O5Lm Nqj7RSWwrMacIA8b dYNsSLoiBc6isBeujKmo NE2dIXWbkxjht401LxFh b3xrIPOqrNFxNSinYQC4 L88ss1A9XGGaVOSr SHC1aSV2jZ0mpFiucjmb bGVmdDsgdmVydGljYWwt VPhkG581RWLleZvuDi3H Pkl6B0NaSan5LRSn eMwxLG1gbATwNZerIo5z oPotfVfqHC1dSSLmxroz a296JkNet9vdHCJqyQBe ZZcpTOC5V53me1J2 RKLbSENcQBP2iJC5iP0m bGlnbjogbGVmdDsgdmVy eJsoTPuaQJxnZ927QRSm cDsnPlBheWVyOjwv dGQ+SU44li74E2MnCilr Qxo0TJBeKWK8uQA3fG0w FFTiYWovj4J0jTC1W0Lu snFfnx9yx9ncKEZh GSwrV26x (more content not included)... Normal [facility] CT Head or Brain w/o Contras ton 07-11-2022 CT Head or Brain w/o Contrast Exam Date/Time: 07/11/2022 08:39 EDT Reason for Exam: fall, on thinners;Other (please specify) Report IMPRESSION: MILD LEFT FOREHEAD/PERIORBITAL SOFT TISSUE SWELLING. NO ACUTE INTRACRANIAL PROCESS, DISPLACED FRACTURE, OR OTHER SIGNIFICANT POSTTRAUMATIC COMPLICATION IDENTIFIED. CHRONIC FINDINGS, NOTED. EXAM: CT Head or Brain w/o Contrast, CT Maxillofacial w/o Contrast DATE: 07/11/2022 CLINICAL HISTORY: fall with head/facial injury, on blood thinners. COMPARISON: None available. TECHNIQUE: Spiral unenhanced images were obtained of the head and face, with routine reconstructions performed for each study. All CT scans at this facility use dose modulation, iterative reconstruction, and/or weight based dosing when appropriate to reduce radiation dose to as low as reasonably achievable. HEAD CT FINDINGS: There is no intracranial hemorrhage, mass effect, midline shift, extra-axial collection, evidence of hydrocephalus, skull fracture, a recent or remote ischemic infarct identified. Chronic cerebellar ischemic infarcts, mildly generalized cerebral volume loss, and mild patchy supratentorial white matter changes most consistent with chronic small vessel ischemic disease, are present. FACE CT FINDINGS: Mild left forehead and superior periorbital soft tissue swelling is present. A small area of bubbly fluid is present within the left side of a developmentally septated sphenoid sinus. There is no displaced fracture, other significant paranasal sinus opacification, organized hematoma, or other significant posttraumatic complication identified. The orbital contents are intact. Report Advanced degenerative changes about the left mandibular condyle are noted. Ordering Provider: Gerson Luz FINAL REPORT Dictated: 07/11/2022 9:00 am Romario Lopez MD Signed (Electronic Signature): 07/11/2022 9:00 am Signed by: Romario Lopez MD Transcribed by: TRACEY Technologist: NICK [facility] CT Maxillofacial w/o Contras ton 07-11-2022 CT Maxillofacial w/o Contrast Exam Date/Time: 07/11/2022 08:39 EDT Reason for Exam: left maxillary trauma;Other (please specify) Report PLEASE SEE CT Head or Brain w/o Contrast REPORT DATED: 07/11/2022. All CT scans at this facility use dose modulation, iterative reconstruction, and/or weight based dosing when appropriate to reduce radiation dose to as low as reasonably achievable. Ordering Provider: Gerson Luz FINAL REPORT Dictated: 07/11/2022 9:01 am Romario Lopez MD Signed (Electronic Signature): 07/11/2022 9:01 am Signed by: Romario Lopez MD Transcribed by: TRACEY Technologist: NICK [facility] CT Spine Cervical w/o Contra ston 07-11-2022 CT Spine Cervical w/o Contrast Exam Date/Time: 07/11/2022 08:39 EDT Reason for Exam: fall;Other (please specify) Report IMPRESSION: NO FRACTURE OR EVIDENCE OF CERVICAL SPINE INJURY IDENTIFIED. EXAM: CT Spine Cervical w/o Contrast DATE: 07/11/2022 CLINICAL HISTORY: Pain after fall. COMPARISON: None available. TECHNIQUE: Spiral unenhanced images were obtained of the cervical spine, with routine reconstructions performed. All CT scans at this facility use dose modulation, iterative reconstruction, and/or weight based dosing when appropriate to reduce radiation dose to as low as reasonably achievable. FINDINGS: The spine is visualized from the craniovertebral junction through the T1-T2 level. There is no fracture, dislocation, or acute paraspinal soft tissue abnormalities identified. Moderately extensive degenerative changes are present with moderate right sided neural foraminal narrowing from C3-4 through C5-6. Ordering Provider: Gerson Luz FINAL REPORT Dictated: 07/11/2022 9:13 am Romario Lopez MD Signed (Electronic Signature): 07/11/2022 9:13 am Signed by: Romario Lopez MD Transcribed by: TRACEY Technologist: NICK Normal [facility] Consent for Treatmenton 06-15 Consent for Treatment [id number] 2#1.00CD:127 Normal [facility] Discharge Instructionson Discharge Instructions [id number] 0#1.00CD:127 Normal [facility] ED Clinical Summaryon 2022 ED Clinical Summary [place] [id number] ED Clinical Summary Person Information Name: CORONA WHARTON Nadia/[facility]duard Age: 77 Years : 1945 Sex: Male Language: Gabonese PCP: Idalmis Silva MD Marital Status: Visit Id: Visit Reason: Fall; FALL Speciality: Acuity: 2 Enc Type: Emergency Med Service: Emergency Arrival: 07/11/2022 08:09:24 Discharge: 07/11/2022 09:57:28 LOS: 000 01:48 Checkin: 07/11/2022 08:09:24 Checkout: 07/11/2022 09:57:28 Dispo Type: Home (Routine DC) EVENTS: Event Name Event Status Request Date/Time Start Date/Time Complete Date/Time Arrive Complete 07/11/2022 08:09:24 07/11/2022 08:09:24 07/11/2022 08:09:24 Document Home Meds Request 07/11/2022 08:09:24 Triage Complete 07/11/2022 08:09:24 07/11/2022 08:26:15 07/11/2022 08:26:15 Bed Assign Complete 07/11/2022 08:10:29 07/11/2022 08:10:29 07/11/2022 08:10:29 Dr Exam Complete 07/11/2022 08:10:29 07/11/2022 08:10:36 07/11/2022 08:10:36 RN Exam Complete 07/11/2022 08:10:29 07/11/2022 08:43:47 07/11/2022 08:43:47 Registration Complete 07/11/2022 08:10:36 07/11/2022 08:36:25 07/11/2022 08:36:25 Trauma II Request 07/11/2022 08:10:45 CT Complete 07/11/2022 08:11:44 07/11/2022 08:19:35 07/11/2022 08:39:41 Reg Complete Request 07/11/2022 08:36:25 Trauma II Request 07/11/2022 09:25:49 Discharge Complete 07/11/2022 09:33:41 07/11/2022 09:57:32 07/11/2022 09:57:32 Transfer Complete 07/11/2022 09:57:32 07/11/2022 09:57:32 07/11/2022 09:57:32 ADDRESS: [address] [place] [address] [facility] [id number] PHYS DOC NOTES: MEDICAL INFORMATION: Prescriptions Given: Medications to Continue with No Changes Other Medications aspirin (aspirin 81 mg oral tablet) By Mouth every day. atorvastatin (Lipitor) By Mouth every day. clopidogrel (Plavix) By Mouth. glimepiride (Amaryl) By Mouth every day. levothyroxine (Synthroid) By Mouth every day. metformin By Mouth. ramipril By Mouth every day. venlafaxine (Effexor XR) By Mouth every day. PATIENT EDUCATION INFORMATION: Instructions: Fall Prevention in Hospitals, Adult; Head Injury, Adult; Facial or Scalp Contusion Follow up: With: Address: When: Idalmis Silva [address] [place] [address], [address] [place] [phone] Business (1) In 3 days 07/14/2022 Comments: Call the office of your primary care doctor to arrange for follow-up within the above-stated timeframe. Follow-up with your primary care doctor about this ED visit. You should review your labs, imaging, and diagnoses from this ED visit with your primary care physician. There are occasionally non-emergent findings that require additional follow-up after your ED visit. If you were prescribed medications you should discuss possible side-effects and drug interactions with your pharmacist. Call 911 or go to the nearest Emergency Department if you develop any new or worsening symptoms. Seek immediate medical attention if you develop: new or worsening headache, nausea, vomiting, confusion, weakness, loss of motion in your arms or legs, loss of control of your urine or stool, difficulty waking from sleep, or any new or worsening symptoms. DIAGNOSIS: Accidental fall; Closed head injury; Facial contusion Normal [facility] ED Note-Physicianon 07-12-19 ED Note-Physician Basic Information Time Seen: Gerson Luz DO 07/11/2022 08:10 History of Present Illness 77-year-old male to the emergency department chief complaint of fall. Patient reports he has a history of stroke with chronic left-sided weakness. He has a hospital bed and uses a bar on the wall to get out of bed. 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 He reports that he hit his head on the floor. He did not lose consciousness. He was able to get up on his own and get to a wheelchair. He takes Eliquis. He reports he is at his baseline health otherwise. He denies any neck pain, back pain, chest or abdominal pain. He denies any extremity injuries. Review of Systems A 10 point review of systems is negative except as noted above. Medical and Surgical History: Reviewed and noted Social history: Lives at home Tobacco: Denies Physical Exam Primary Survey Airway Intact Lung sounds clear and equal bilaterally Pulses full and equal to femoral, radial, and dorsalis pedis bilaterally Heart regular rate and rhythm Skin warm, dry, pink GCS 15 Movement and sensation intact to all extremities Patient Fully Exposed. Hematoma to the left maxilla. Secondary Survey General: GCS 15; Alert HEENT: Head atraumatic; Facial bones stable; hematoma and abrasion to the left maxilla; eyes normal inspection, Pupils round, 4-2mm blt; No evidence of oropharyngeal trauma; No blood in the nares or septal hematoma; Tympanic Membranes intact, no hemotympanum or drainage Neck: Normal inspection; no midline C-spine tenderness; No tracheal deviation; No JVD Resp: Normal breath sounds, no wheeze or crackles; No chest wall tenderness, crepitus, or subcutaneous emphysema; No visible evidence of chest wall trauma; Chest rise symmetric; No respiratory distress Heart: Heart rate and rhythm regular; Carotid, radial, femoral, dorsalis pedis pulses +2 and equal bilaterally; No Murmurs Abdomen: Soft; Non-tender No ecchymosis or visible wounds to abdominal wall; No distention, guarding, rigidity, or rebound; Pelvis stable, no pain on compression; No blood at urethral meatus MSK: All major joints with normal ROM. No deformities. No bony tenderness. No tenderness or step-offs to palpation of thoracic or lumbar spine; No ecchymosis or wounds to upper or lower back Neuro: Alert and oriented; Sensation intact and symmetric bilaterally; muscle strengths symmetric bilaterally in the upper and lower extremities. Skin: Color normal; No rash; Warm; Dry Medical Decision Making MDM Data External documents reviewed: Not applicable My EKG interpretation: Not applicable My CT interpretation: As below My X-ray interpretation: Not applicable My Ultrasound interpretation: Not applicable Decision rules/scores evaluated: Not applicable Discussed with: Not applicable Treatment and Disposition ED Course: 77-year-old male with history of stroke with mechanical fall at home. Vital stable, the patient is afebrile. Hematoma and abrasion in the left maxillary region. No other traumatic injuries identified on exam. CT head, C-spine, maxillofacial ordered. Patient agrees with this plan. He declines any pain medication. CT head: Negative CT maxillofacial: Negative CT cervical spine: Negative Patient reevaluated. Vitals remained stable. He has no complaints at this time. Close head injury precautions were given. He does not ambulate at baseline. agrees with plan for discharge. Patient was discharged back to his home under the care of his . Shared decision making: As above Code status: Not addressed during this visit Assessment/Plan Accidental fall (W19.XXXA: Unspecified fall, initial encounter) Closed head injury (S09.90XA: Unspecified injury of head, initial encounter) Facial contusion (S00.83XA: Contusion of other part of head, initial encounter) Orders: CT Head or Brain w/o Contrast CT Maxillofacial w/o Contrast CT Spine Cervical w/o Contrast Disposition Plan Patient Discharge Condition Stable Discharge Disposition Home Discharge Prescription List Prescriptions No active prescription medications Follow-up With When Contact Information Idalmis Silva In 3 days 07/14/2022 EDT [address] [place] [phone] Business (1) Additional Instructions: Call the office of your primary care doctor to arrange for follow-up within the above-stated timeframe. Follow-up with your primary care doctor about this ED visit. You should review your labs, imaging, and diagnoses from this ED visit with your primary care physician. There are occasionally non-emergent findings that require additional follow-up after your ED visit. If you were prescribed medications you should discuss possible side-effects and drug interactions with your pharmacist. Call 911 or go to the nearest Emergency Department if you develop any new or worsening symptoms. Seek immediate medical attention if you develop: new or worse (more content not included)... Normal [facility] Comment on above: Result Comment: Elec tronically Signed By: Gerson Luz DO\.cristiana\Date and Time Signed: 07/11/22 09:38 EDT ED Patient Education Noteon 07-11-2022 ED Patient Education Note Neurology Head Injury, Adult There are many types of head injuries. Head injuries can be as minor as a bump, or they can be a serious medical issue. More severe head injuries include: ? A jarring injury to the brain (concussion). ? A bruise (contusion) of the brain. This means there is bleeding in the brain that can cause swelling. ? A cracked skull (skull fracture). ? Bleeding in the brain that collects, clots, and forms a bump (hematoma). After a head injury, most problems occur within the first 24 hours, but side effects may occur up to 7?10 days after the injury. It is important to watch your condition for any changes. You may need to be observed in the emergency department or urgent care, or you may be admitted to the hospital. What are the causes? There are many possible causes of a head injury. A serious head injury may be caused by a car accident, bicycle or motorcycle accidents, sports injuries, and falls. What are the symptoms? Symptoms of a head injury include a contusion, bump, or bleeding at the site of the injury. Other physical symptoms may include: ? Headache. ? Nausea or vomiting. ? Dizziness. ? Feeling tired. ? Being uncomfortable around bright lights or loud noises. ? Seizures. ? Trouble being awakened. ? Fainting. Mental or emotional symptoms may include: ? Irritability. ? Confusion and memory problems. ? Poor attention and concentration. ? Changes in eating or sleeping habits. ? Anxiety or depression. How is this diagnosed? This condition can usually be diagnosed based on your symptoms, a description of the injury, and a physical exam. You may also have imaging tests done, such as a CT scan or MRI. How is this treated? Treatment for this condition depends on the severity and type of injury you have. The main goal of treatment is to prevent complications and to allow the brain time to heal. Mild head injury If you have a mild head injury, you may be sent home and treatment may include: ? Observation. A responsible adult should stay with you for 24 hours after your injury and check on you often. ? Physical rest. ? Brain rest. ? Pain medicines. Severe head injury If you have a severe head injury, treatment may include: ? Close observation. This includes hospitalization with frequent physical exams. ? Medicines to relieve pain, prevent seizures, and decrease brain swelling. ? Breathing support. This may include using a ventilator. ? Treatments to manage the swelling inside the brain. ? Brain surgery. This may be needed to: ? Remove a blood clot. ? Stop the bleeding. ? Remove a part of the skull to allow room for the brain to swell. Follow these instructions at home: Activity ? Rest and avoid activities that are physically hard or tiring. ? Make sure you get enough sleep. ? Limit activities that require a lot of thought or attention, such as: ? Watching TV. ? Playing memory games and puzzles. ? Job-related work or homework. ? Working on the computer, using social media, and texting. ? Avoid activities that could cause another head injury, such as playing sports, until your health care provider approves. Having another head injury, especially before the first one has healed, can be dangerous. ? Ask your health care provider when it is safe for you to return to your regular activities, including work or school. Ask your health care provider for a lgvg-ij-ndbu plan for gradually returning to activities. ? Ask your health care provider when you can drive, ride a bicycle, or use heavy machinery. Your ability to react may be slower after a brain injury. Do not do these activities if you are dizzy. Lifestyle ? Do not drink alcohol until your health care provider approves. Do not use drugs. Alcohol and certain drugs may slow your recovery and can put you at risk of further injury. ? If it is harder than usual to remember things, write them down. ? If you are easily distracted, try to do one thing at a time. ? Talk with family members or close friends when making important decisions. ? Tell your friends, family, a trusted colleague, and c iron worker about your injury, symptoms, and restrictions. Have them watch for any new or worsening problems. General instructions ? Take yspj-wmc-aeixsex and prescription medicines only as told by your health care provider. ? Have someone stay with you for 24 hours after your head injury. This person should watch you for any changes in your symptoms and be ready to seek medical help. ? Keep all follow-up visits as told by your health care provider. This is important. How is this prevented? ? Work on improving your balance and strength to avoid falls. ? Wear a seatbelt when you are in a moving vehicle. ? Wear a helmet when riding a bicycle, skiing, or doing any other sport or activity that has a risk of injury. ? If you drink alcohol: ? Limit how mu (more content not included)... Normal [facility] ED Patient Summaryon 023 ED Patient Summary [address] [address] Patient Discharge Instructions Person Information Name: CORONA WHARTON Age: 77 Years Arrival Date: 07/11/2022 08:09:24 Discharge Diagnosis: Accidental fall; Closed head injury; Facial contusion Primary Care Physician: Idalmis Silva MD Provider Information Primary Provider: Gerson Luz DO Advanced Taxicab Starter:None The exam and treatment you received in the Emergency Department were for an urgent problem and are not intended as complete care. It is important that you follow up with a doctor, nurse practitioner, or physician?s healthcare administrative assistant for ongoing care. If your symptoms become worse or you do not improve as expected and you are unable to reach your usual health care provider, you should return to the Emergency Department. We are available 24 hours a day. CORONA WHARTON has been given the following list of patient education materials, prescriptions and follow-up instructions: Follow-up Instructions: With: Address: When: Idalmis Silva [address] [place] [address], [facility] [place] [address] Business (1) In 3 days 07/14/2022 Comments: Call the office of your primary care doctor to arrange for follow-up within the above-stated timeframe. Follow-up with your primary care doctor about this ED visit. You should review your labs, imaging, and diagnoses from this ED visit with your primary care physician. There are occasionally non-emergent findings that require additional follow-up after your ED visit. If you were prescribed medications you should discuss possible side-effects and drug interactions with your pharmacist. Call 911 or go to the nearest Emergency Department if you develop any new or worsening symptoms. Seek immediate medical attention if you develop: new or worsening headache, nausea, vomiting, confusion, weakness, loss of motion in your arms or legs, loss of control of your urine or stool, difficulty waking from sleep, or any new or worsening symptoms. In the event that this physician does not participate in your insurance network, please consult with your insurance company to find a nearby participating provider. Patient Education Materials: Fall Prevention in Hospitals, Adult; Head Injury, Adult; Facial or Scalp Contusion A MESSAGE TO ALL PATIENTS REGARDING OPIOIDS PRESCRIPTION OPIOIDS: WHAT YOU NEED TO KNOW Prescription opioids can be used to help relieve naemcatp-cs-bqnzik pain and are often prescribed following a surgery or injury, or for certain health conditions. These medications can be an important part of the treatment but also come with serious risks. It is important to work with your healthcare provider to make sure you are getting the safest, most effective care. WHAT ARE THE RISKS AND SIDE EFFECTS OF OPIOID USE? Prescription opioids carry serious risks of addiction and overdose, especially with prolonged use. An opioid overdose, often marked by slowed breathing, can cause sudden . The use of prescription opioids can have a number of side effects as well, even when taken as directed: ? Tolerance?meaning you might need to take more of the medication for the same pain relief ? Physical dependence?meaning you have symptoms of withdrawal when a medication is stopped ? Increased sensitivity to pain ? Constipation ? Nausea, vomiting, and dry mouth ? Sleepiness and dizziness ? Confusion ? Depression ? Low levels of testosterone that can result in lower sex drive, energy, and strength ? Itching and sweating RISKS ARE GREATER WITH: ? History of drug misuse, substance use disorder, or overdose ? Mental health conditions (such as depression or anxiety) ? Sleep apnea ? Older age (65 years and older) ? Avoid alcohol while taking prescription opioids. Also, unless specifically advised by your health care provider, medications to avoid include: ? Benzodiazepines (such as Xanax or Valium) ? Muscle relaxants (such as Soma or Flexeril) ? Hypnotics (such as Ambien or Lunesta) ? Other prescription opioids KNOW YOUR OPTIONS Talk to your health care provider about ways to manage your pain that don?t involve prescription opioids. Some of these options may actually work better and have fewer risks and side effects. Options may include: ? Pain relievers such as acetaminophen, ibuprofen, and naproxen ? Some medication that are also used for depression or seizures ? Physical therapy and exercise ? Cognitive behavioral therapy, a psychological, goal-directed approach, in which patients learn how to modify physical, behavioral, and emotional triggers of pain and stress. IF YOU ARE PRESCRIBED OPIOIDS FOR PAIN: ? Never take opioids in greater amounts or more often than prescribed. ? Follow up with your primary health care provider. o Work together to create a plan on how to manage your pain. o (more content not included)... Normal [facility] ED Traumaon 07-11-2022 ED Trauma [id number] Normal [facility] EMS Documentationon 07-12-19 23 EMS Documentation Please click on link to see report [id number] NCiX5+prnDQolQUJDcGR kNPFhLqC3LFywBoNwWS2 eta2CZItRA9TfCYMaYUb xCi9I LTknCGm1SBFbYJ9NB3qr UOc7ZhF5Uk3EmM9uDUOe ztOoPQXEV01bXgqxHrYc PDgmZQOiPHP2KIZP Sg3vFKDrDUHfPBIkYDVu ICAgICAgICAgICAgICAg ICAgICAgICAgICAgICAg ICAgICAgICAgICAg ICAgICAgICAgICAgICAg ICAgICAgDQplbmRvYmoN Yp3RaEMxCr3HJdCqNtTY CjAwMDAwMDAwMzIg ERFzBBTrky6RUESoQGGa MCZ2EKDmQRKeGONzTDqi HBDrSRAdKBr8RYJoBMCx JD8YCoLuSXOfZOR5 FQQcGLAcSRLgor3VTXQx MDAwMTkzNCAwMDAwMCBu JRwfNPDdCRZkJFx3LAAo SNCzPJ0XBzShPGIa RUFaUtAcBRSqQPIwck9S MDAwMDAwMjMxNSAwMDAw MCBuDQowMDAwMDAyMzk5 MZMjHRQgTG4SCvEg SLMaESP6MRnqTEVgAKKd oa0LGKXuFHNhLqeeMIAt MDAwMCBuDQowMDAwMDAz LLN2LLRxFTBrZH0U SbOnKUDyGXF6TLmjFLJv UBHevl2XBUDvFCYfEjUf MyAwMDAwMCBuDQowMDAw XJOfFML1SFGwNSHe BH2OKgWnAOUgONZmMRva XUGvUDItqq5HYEHxVLNu EXG5SfBoCMSzMBPbVNvu ZZZwXYC9PmMxHUQg WTVwCA6LEtTuBANzOEU2 ZfZqBPQnAUFuqj1IXISh MDAwNTEzNCAwMDAwMCBu LEykKIYdUBW2SJQp ZKNgDAXvQA5FRrWuEYSg IUP2XTFkNVVfILJlqh6B PMQbLDRkZWZ1DRJrPBNq MCBuDQowMDAwMDQ5 NRSjSLEgAXSwVZ1QHkCx ZACkXJW2QnJvKQWyCGGf df5AuKSyjAptxh0JZBmR I6iVMIo3ZFJ8SLEJ NqWcBHT0IFO3QPy6RfsX NzBEMkNDRjUwNDA+Cjwy RDhBNTNBMzdDMTIzNURF NWt6T9GOHNJWFwYM HXQRUH7vHg1EjtC1SFB7 DypbFBpaIn5pwUVjEcTm XHPRR7IjinPlFRiUE3Ob pEWxKMCaD7UROFL6 Eq62TrmetEzKQFF7GVGH OQrjOR3PSrrTXaVpUZtw Uo35B6YFe5E3FbYxW4ZA pHsBtaETIPalV5xG sVY0z5gqlOnJcYJAcNki OGdJcndPalFSQUlqUHNX vJ64akcZX3SkGSh5G1PJ Sr9FCDdlBlLorF8U yFpvWOW9nL6yBZMVTYzP WkhfCI8KXWFMLDf8RPj+ PiAgICAgICAgICAgICAg ICAgICAgICAgICAg ICAgICAgICAgICAgICAg ICAgICAgICAgICAgICAg ICAgICAgICAgICAgICAg ICAgICAgICAgICAg ICAgICAgICAgICAgICAg ICAgICAgICAgICAgICAg ICAgICAgICAgICAgICAg ICAgICAgICAgICAg ICAgICAgICAgICAgICAg ICAgICAgICAgICAgICAg ICAgICAgICAgICAgICAg ICAgICAgICAgICAg ICAgICAgICAgICAgICAg ICAgICAgICAgICAgICAg ICAgICAgICAgICAgICAg ICAgICAgICAgICAg ICAgICAgICAgICAgICAg ICAgICAgICAgICAgICAg ICAgICAgICAgICAgICAg ICAgICAgICAgICAg ICAgICAgICAgICAgICAg ICAgICAgICAgICAgICAg ICAgICAgICAgICAgICAg ICAgICAgICAgICAg ICAgICAgICAgICAgICAg ICAgICAgICAgICAgICAg ICAgICAgICAgICAgICAg ICAgICAgICAgICAg RK7Cn8IgumZ2ztIyOFho RKtzIFYXFe2XJOijZqWf JS7keo2NMHdCA53jcRGj YXRhIDIxIDAgUgov Q7XginQziIbeqwSnDhQs KNQCJq2IkSDBPDptU0C2 wBzpNHIiHMpaACCRBo3Y DXneUU4yDBSbVCLf Sy4jGPcoMQVlMHEfCpCh GUVXBf6ByERmXG7TSUWg wC7iSf5+DQplbmRvYmoN Dq5QAmAiCIJtVyoC Rwb0Yz7SyCi6FFWsO3Ni BRBkGAQfs6KxSv6FMQ1x zVfhNJR8Wg0OCPr3Cl8+ DEmupSQzSK2UHzfi A2UhSIHqIZGaXXMoSBqM IuFAAQpTgGwhqBgXA+Os NgjzizkDMsAQZzMCEmJQ jLWwGvQ4FXmYO1W7 ZLjQHlFcC4Q1QFeNIODI QwWjAFcCsKhG6yGQeRsL loY0KMH8tMLAINLaJLri +xGfQMIvUgHJD2OI Tl3ETS0qn0NmXQRySRgr ubNhIjjYWc6KJsViELHw CsmWNyf7Kz7Zn541CT70 cyBbNDIgMCBSXQov HHRwfXALi1brDfOdXEU9 RCViEdwpFZhaTDHzRB16 JRLxIZKjZojxQgQwr4Yo W6MiBKy0Vz0TQ6Xa FGM3QAu0Dv1XOGEbKgOc RoFgXNIGJo1HCp2BV6X1 dDHuI3GgB2LOUc0HUpSm JV0uux7TGCuwFhBu VJ4gtb7RVAxFA6ZHx6gp BuKtFNU9BSIpQdbtFMyb AyreeBGnZC4YsUG8VLNz B16uAXegEGKkL1Yw SOk0Xm4SEIUxsOQmPPXz ASgGF2uRNdfbX9QmSHtP M1tcNlD7UZEeHQIjSgh+ Pgo+MgsnI1PebJwl COYxYq7xgGmoDMrsZRWo GA4mtdFssUd+Ft7Dq8Sx XAXbCMj8nSQB9QEp8VGj CYSvIRU1XLFsvdMN SRcf4NoPtGMpWgIzmEYl U2vcTXKf32tXFHLzNetN m6wnAjVv1HbLHD+XK5CX dpEhLwFaxq8BKHbr hmWdyENqNV1SBbMjFF2e bw0NHKutOjQsUC5gkg6O RDwBC4PNEU9Al3TwYCzR X9YGKQPMB6fGPUJG X8yPCRQPD0rKMVMSH43W NTADF2NOWALmpGPQG0Bh GFZODm7AApBfTF9yeg9G IGyyGSUbGV0tjb6Q LNjBR2OZOW1Qx1VwKIlR Q8BhVFNNUy5GHvQiLQ6d kz9TZWchGLHpOP7vde2O JXxWI5JTZG0Ex6Lb TWeMU5FVLIIAJ6hQQFEI Y8aQFBHIH6hTCKHHV98Y BHCLZ2MASHWbbVJOP8Oz XDISCk4USiUpJI8s dm9OOVmeABKhPN2bag0M OYhQI0Ldi4FMw013YH1A U4jWPqYfC018txlgnx2d w8BJFMHzeVPWGZzc WNLoK4PwFNDwdHLjnqZl CMklCCPtKJDcEd5SdwZw ZGluZyAvSWRlbnRpdHkt UUndK2TolZdkKCEi YIscKQPQH6WtLU0iU68r RMWbKaYhFZMPE9G4lNKm B5BhygVMBm8SKhVbTG6c ud0ZERtzBPDrJE6d oz8NRZbRP9Uen1JVi125 CY3KX1tKAiMoI082rxxd vm4gw9LUKCKcrTMRBVnn C7uOP1avfIKiOX5k srL9WXuzV2OxWOSbklrw PFzlIG73xCJ2PGcnIvQy oQN1dkpyMDPli7TpEFms A3YmpWkjbOHeaMSy Cj4+Mv4OOAWJj0eLWL3k oCDzPLEbzoMtyKaZQ1NH NRFAH0JuiePCAMLrhfgm uU6oAORxKCXkYqdj K1QlbMwfKVIyK4eUFu0a eUJ7bGSwUz4AmXUxHD7M o927Pu0DZSnxWMGlVIZ6 VWAuXTp2QiVzWq5+ CWxudbHbJjbZYl4OLdJi IRNwLmrADwh3Zt9Wa3Fa rpQjHRJjMlBvZUQsRc5F YXBIZWlnaHQgNTkx Wpg0Nqu0Qz7TVVGqDO77 RZEnDU7zJAJ7CbqjVqzo K2TmPiQWW5XbmmNGQw33 BHtmFKukOze5QZLm IB80CEOiIZO4TjSnRaKl HiI6DXJ0VVTfYbOfUHql RKFrVi3Zg850CgfkZCKv IXWoMABEYt1Vh002 UpXuAIKxD7VBJ2vHQ5Ca aHYkUBXHAVfLRt1Of5pk ZMFBU7g4ACouE0BnF0zy COHHN1B0TM3KXXj2 EfW4KMr0Gu2IrVDyHL1L k703UQRnR0RczADtrqa+ Hi3CXB9ki4YhVIdTTiZp XCLpz4QlJJo0KBdz BldppAOqBZ6DmZB8NKVz X75pKDsnGVIkR1NmCHWv Isabel+Ol2Yw6KjEFZcNDc9 yE4Wc68PJXM1+yt8 cY1UwqXzGfjdDWfLxN+V 9gOIvaSWirGMc+Dva3Zp OgGYJCYyoGR4XWLmzTtY BWq5t5it0N9Q7WPr g53UE6ZRKHFVtx3JA3Y0 EyaYfzvq3ttW3Pz+ZGXJ jmMLQ5nlN/6w1+MZHlny 5jV4Yy/66tesD19n zc7JACPltxuKw+hj0kvn NzpAaES5OdWarEaxMvmt is/VNYyJG0iXUvQAzhZf M3aRPyv6To2n9gqG ZQ9yUXqTsBizpKe1JfGF CIXy2eLGEXxXHMdp8mSh KAI9Xij57p5UW2NxrlZ9 K18oPZJfxyD6xBYG Q62BhnWbXAgexepYUzo1 WHHU3wCQCHtgjSQpBvTe HAZqY1i4MQnDbFtnKHxu tJsHeqytb43Ry0Oo 7TYWbv+NS21qKg2jOMev or3CLQ2jc7IlLNQfBIyg jgFcFlhRTt4OAkNgOQMh IhmUQpc9Iw1UQQKd Hb0vrYKzQuRQFt2DA2Pd wINoHOIASGeEU92IFw8F GATnAG4vPX92Qb5dvFQo QtX3RCTmTv6IU5Lr F25dxZ7yHU4VIUTxeJk5 aZ0YIs7FyHH4oVFzQE7A qBLxREoqCF7Mlvyo (more content not included)... Normal [facility] Pre-Arrival Noteon Pre-Arrival Note Pre-Arrival Summary Name: , Current Date: 07/11/2022 08:10:36 EDT Gender: Date of : Age: 78 Pre-Arrival Type: EMS ETA: 07/11/2022 08:19:00 EDT Primary Care Physician: Presenting Problem: fall Pre-Arrival User: Laura Tabor RN Referring Source: Location: PA Completion Date/Time: 07/11/2022 07:49:00 [facility] Emergency Department Pre-Hospital Report Form Vital Signs: Pre-Hospital Report: Treatment in Route: Response to Treatment: Misc. Issues: Normal [facility] US MARLENA DOP LEG LTon 06-21-19 23 US MARLENA DOP LEG LT EXAMINATION: US MARLENA DOP LEG LT HISTORY: Swelling of left lower limb COMPARISON: Ultrasound venous Doppler leg bilateral 06/02/2021 FINDINGS: REGION: Left lower extremity THROMBI: None. COMPRESSIBILITY: Normal compressibility. FLOW: Normal waveform and antegrade flow between 5 and 20 cm/s. OTHER: Subcutaneous edema. IMPRESSION: 1. No deep vein thrombus within the left lower extremity. Electronically authenticated by: GRAHAM SCHWARTZ Date: 2022-06-20 16:27 Normal [facility] CT LSPINE WO CONon [address] CON [address] LSHOYLETON WO CON INDICATION: 76 years old; Male. Patient slipped out of his wheelchair 3 days ago. No additional complaints. Now lumbar back pain. TECHNIQUE: CT of the lumbar spine.Contrast None. Sagittal and coronal images as well as axial reconstructions through the disc spaces were produced. 3-D reformats were created and reviewed for better evaluation of the lumbar spine alignment. Ionizing radiation dose reduced via iterative reconstruction/FBP blend and body size kV/mA adjustment. COMPARISON: Lumbar x-ray dated 04/17/2019. FINDINGS: POSTOPERATIVE CHANGES: None ALIGNMENT AND LORDOSIS: Normal lumbar lordosis. Mild scoliosis concave to the left in the lower thoracic/upper lumbar spine. There is rotational component of scoliosis concave to the right centered at the L4-L5 level. VERTEBRAE: Generalized bony demineralization. There is a linear lucency noted through a bulky bridging anterior osteophyte at the L5-S1 level projecting to the right, image 32/series 7. This is consistent with a nondisplaced fracture through an anterior osteophyte. No vertebral body collapse is seen. No spondylolysis is noted. No lytic or blastic lesions. DISC LEVELS: L1-L2: No disc herniation. No spinal canal or foraminal narrowing. L2-L3: [Beam hardening artifacts, there is disc bulging and endplate osteophyte formation with facet degeneration ligamentous thickening. Moderate to severe central canal stenosis is seen with circumferential compression of the thecal sac. Mild foraminal stenosis is noted. L3-L4: Beam hardening artifacts. Severe central canal stenosis secondary to disc bulging, endplate osteophyte formation, facet degeneration, ligamentous thickening, and a central protrusion type disc herniation. Rotational deformity is seen associated with scoliosis. Neural foramina are patent. L4-L5: Vacuum disc degeneration, disc space narrowing, disc bulging, endplate osteophyte formation, facet degeneration, ligamentous thickening, and rotational deformity associated with scoliosis. Moderate severe central canal stenosis is seen. Moderate left and moderate to severe right foraminal stenosis is noted. L5-S1: Disc space narrowing, disc bulging, endplate osteophyte formation, vertebral endplate degeneration, vacuum disc degeneration, facet degeneration, ligamentous thickening. Bulky bridging osteophyte formation with the previously described lucency. Central canal patent. Moderate to severe left and mild right neural foraminal stenosis. LOWER THORACIC DISCS: No focal disc herniation bulging is seen at T11-T12 and T12-L1. Chronic Schmorl's node formation is seen at T11-T12. This study does not visualize the distal conus. OTHER: Vascular calcification. Posterior paraspinal muscle atrophy. Psoas muscles are intact. Please see the separate dictations for the CT of the chest, abdomen, and pelvis. IMPRESSION: 1. Diffuse degenerative changes with multilevel stenosis. Please see the detailed discussion of the individual levels in the body of this report. 2. Linear lucency through a bulky bridging anterior osteophyte on the right at the L5-S1 level, image 32/series 7. This is consistent with a nondisplaced fracture through the osteophyte. 2. No fracture or bony displacement. Electronically authenticated by: BALBINA FRIAS Date: 2022-05-05 23:41 Normal [facility] CTA ABD/PELVIS WO W CONon CTA ABD/PELVIS WO W CON EXAMINATION: CTA CHEST WO W CON, CTA ABD/PELVIS WO W CON HISTORY: Aortic aneurysm COMPARISON: Chest x-ray 06/05/2021 TECHNIQUE: CT angiography of the pulmonary arteries and abdomen pelvis following the administration of 100 mL Omnipaque 350 intravenous contrast. Coronal and sagittal MIP (maximum intensity projection) images were performed. Dose reduction techniques were achieved by using automated exposure control and/or adjustment of mA and/or kV according to patient size and/or use of iterative reconstruction technique. FINDINGS: VASCULAR: Aortic root measures 3.3 cm in diameter. Mid ascending thoracic aorta measures 3.4 cm diameter. Aortic arch diameter measures 2.8 cm diameter. Proximal descending thoracic aorta measures 3.4 cm diameter. Abdominal aorta measures up to 2.1 cm diameter. 8 mm posterior abdominal aortic wall penetrating ulcer versus ulcerating atheromatous plaque at the infrarenal abdominal aorta just inferior to the renal arteries origin (image 121 series 4). Common iliac arteries measuring up to 1.4 cm ammeter on the right. No focal occlusion or severe stenosis of the visualized abdominal arterial vasculature. Scattered atherosclerotic calcified location is of the abdominal aortic wall. No large central pulmonary embolism. The bilateral peripheral segmental and subsegmental pulmonary arteries are not well opacified by IV contrast and are not well evaluated. CHEST: Moderate cardiomegaly. Moderate left coronary artery calcifications. No large pericardial effusion. Central airway is patent. Mild bilateral lower and upper lung linear atelectasis/scar. No suspicious lung consolidation or infiltrates. No large pleural effusions or pneumothorax. Multiple remote bilateral ribs deformity. No visible acute displaced rib fracture. ABDOMEN PELVIS: Minimal hiatal hernia. Hepatic steatosis. Gallbladder, spleen, pancreas, adrenal glands, kidneys, urinary bladder, and other pelvic structures are unremarkable. The appendix is not seen. Prostamegaly 5 cm transverse diameter. Moderate amount of stool within the large bowel. No evidence for small bowel obstruction, large ascites, or free air. Nondisplaced fracture through the anterior bridging ossification of the right anterolateral L5-S1 level. IMPRESSION: Nondisplaced fracture through the anterior bridging ossification of the right anterolateral L5-S1 level. This finding is better seen on CT lumbar spine performed same day. Please see lumbar spine report. 8 mm posterior abdominal aortic wall penetrating ulcer versus ulcerating atheromatous plaque at the infrarenal abdominal aorta just inferior to the renal arteries origin (image 121 series 4). Otherwise, no thoracic or abdominal aortic aneurysmal dilation. The thoracic and abdominal aortic caliber, as detailed above. Moderate cardiomegaly and moderate left coronary artery calcifications. Electronically authenticated by: RADHA CONNELLY Date: 2022-05-05 23:51 Normal [facility] PROF CHEM 8 (BAS METB)on Anion gap [Moles/Vol] 14.7 mmol/L Normal [facility] Comment on above: Performed By: #### B MP #### [facility] [address] [address] [address] Bertha Bowen Calcium [Mass/Vol] 9.0 mg/dL Normal 8.5-10.1 [facility] Comment on above: Performed By: #### B MP #### [facility] [address] [address] [address] Bertha Bowen Chloride [Moles/Vol] 100 mmol/L Normal 98-107 [facility] Comment on above: Performed By: #### B MP #### [facility] [address] [address] [address] Bertha Bowen CO2 [Moles/Vol] 29.1 mmol/L Normal 21.0-32.0 [facility] Comment on above: Performed By: #### B MP #### [facility] [address] [place] [address] Dr. Bertha Bowen Creatinine [Mass/Vol] 1.33 mg/dL Critically high 0.70-1.30 [facility] Comment on above: Performed By: #### B MP #### [facility] [address] [address] [address] Bertha Bowen EGFR-AF TAJIK >60 Normal >=60 [facility] Comment on above: Performed By: #### B MP #### [facility] [address] [address] [address] Bertha Bowen EGFR-NON AF TAJIK 52 mL/min/1.73m2 Critically low >=60 [facility] Comment on above: Performed By: #### B MP #### [facility] [address] [address] [address] Bertha Bowen Glucose [Mass/Vol] 260 mg/dL Critically high 74-106 [facility] Comment on above: Performed By: #### B MP #### [facility] [address] [address] [address] Bertha Bowen Potassium [Moles/Vol] 4.8 mmol/L Normal 3.5-5.1 [facility] Comment on above: Performed By: #### B MP #### [facility] [address] [place], [place] [address] Dr. Bertha Bowen Sodium [Moles/Vol] 139 mmol/L Normal 136-145 [facility] Comment on above: Performed By: #### B MP #### [facility] [address] [place], [place] [address] Dr. Bertha Bowen Urea nitrogen [Mass/Vol] 27.0 mg/dL Critically high 7.0-18.0 [facility] Comment on above: Performed By: #### B MP #### [facility] [address] [place], [place] [address] Dr. Bertha Bowen Urea nitrogen/Creatinine [Mass ratio] 20.3 mg/mg Normal [facility] Comment on above: Performed By: #### B MP #### [facility] [address] [place], [place] [address] Dr. Bertha Bowen Progress Noteson 09-26-2021 Photo Manager Authentication Interface Message Text EMERGENCY TRIAGE, TREAT AND TRANSPORT (ET3) DOCUMENTATION OF TELEHEALTH VISIT Date / Time: 09/26/20211514 Name: Corona Wharton : 1945 SSN: [id number] EMS Agency: [facility] [x] Verbal consent obtained [] Implied consent - patient with potential emergency medical condition requiring assessment of capacity to refuse treatment and/or transport VITAL SIGNS: see flowsheet documentation Reason for Telehealth Visit: Chief Complaint Patient presents with * Fall History of Present Ilness: Pleasant 76yo male, remote hx of stroke, no use of left leg. Pt slid from chair to ground. No c/o pain. Needed help getting back up. No LOC. Denies hitting head. present and st pt is acting his normal self with no change in activity or speech. No headache, no neck/back pain, no chest/abd pain. No n/v. No dyspnea. Pt has chronic back pain but no change in that since fall. No new leg or arm weakness since fall. Additional pertinent PMHx, SocHx, FamHx: Lives with . Uses power wheelchair for movement. pmhx cva, htn. Review of Systems: Denies the following: Please see HPI. No fever. Exam: General: Awake, no distress ENT: normocephalic, atraumatic Pulmonary: No respiratory distress Cardiovascular: Well perfused Neurologic: Oriented to person, place, time and events. Moving all extremities equally. Psychiatric: Appropriate. Good insight and judgement. Back. No midline c/t/l pain on palpation per ems. Ext: 2x2cm superficial abrasion to left forearm. Medical Decision Making: Pleasant 76yo male who slipped from chair needing lift assist. Only injury is small arm abrasion. EMS will clean and dress wound. Pt helped back into chair. Has his normal support at home. Pt has no further request or questions. Crew with no further questions. Pt to f/u with his PCP. Disposition Supported by Telehealth Assessment: ET3 transport decisions: Treat in place EMS Disposition Reported: Same ET3 Encounter Completed by: Pelon Hawthorne MD Normal [facility] Glucose Poct Glucometerson 1 05-02-2020 Commemt1 Glu2: Cleaned Meter Normal [facility] Comment on above: Result Comment: PERF ORMED BY: [place] [address] PATHOLOGIST [employer]TAIN FREDA ALCAZAR M.D. Performed By: #### C MP, MG, CBC, PT, HS TROP, BNP #### [address] Glucose [Mass/Vol] 191 mg/dL Normal [facility] Comment on above: Result Comment: [place] Glucose Reference Range is dependent on time and content of last meal. Glucose of more than 200 mg/dL in a nonstressed, ambulatory subject supports the diagnosis of Diabetes Mellitus. Performed By: #### C MP, MG, CBC, PT, HS TROP, BNP #### [address] Glucose [Mass/Vol] 165 mg/dL Normal [facility] Comment on above: Result Comment: [place] Glucose Reference Range is dependent on time and content of last meal. Glucose of more than 200 mg/dL in a nonstressed, ambulatory subject supports the diagnosis of Diabetes Mellitus. PERFORMED BY: [address] [place] [address] PATHOLOGIST [employer]TAIN FREDA ALCAZAR M.D. Performed By: #### C MP, MG, CBC, PT, HS TROP, BNP #### [address] Basic Metabolic Panelon 11-1 Calcium [Mass/Vol] 9.2 mg/dL Normal 8.2-10.2 [facility] Comment on above: Performed By: #### C MP, MG, CBC, PT, HS TROP, BNP #### [address] Chloride [Moles/Vol] 93 mmol/L Low 95-114 [facility] Comment on above: Performed By: #### C MP, MG, CBC, PT, HS TROP, BNP #### [address] CO2 [Moles/Vol] 32.7 mmol/L High 22.0-30.0 [facility] Comment on above: Performed By: #### C MP, MG, CBC, PT, HS TROP, BNP #### [address] Creatinine [Mass/Vol] 1.04 mg/dL Normal 0.64-1.27 [facility] Comment on above: Performed By: #### C MP, MG, CBC, PT, HS TROP, BNP #### [address] Creatinine Clr Calc Pharmacy 96.96 [facility] Comment on above: Result Comment: PERF ORMED BY: [place] [address] PATHOLOGIST [employer]TAIN FREDA ALCAZAR M.D. Performed By: #### C MP, MG, CBC, PT, HS TROP, BNP #### [address] Estimated GFR ( Nadia > 60 Normal [facility] Comment on above: Result Comment: GFR estimated reference range: According to KDOQI guidelines, <60 ml/min/1.73m2 is sufficient to diagnose a patient with chronic kidney disease. Performed By: #### C MP, MG, CBC, PT, HS TROP, BNP #### [address] Estimated GFR (Non- Am > 60 Normal [facility] Comment on above: Performed By: #### C MP, MG, CBC, PT, HS TROP, BNP #### [address] Glucose [Mass/Vol] 175 mg/dL High 70-100 [facility] Comment on above: Result Comment: [facility] [place] Glucose Reference Range is dependent on time and content of last meal. Glucose of more than 200 mg/dL in a nonstressed, ambulatory subject supports the diagnosis of Diabetes Mellitus. ADA recommended reference range Performed By: #### C MP, MG, CBC, PT, HS TROP, BNP #### [address] Potassium [Moles/Vol] 4.6 mmol/L Normal 3.5-5.1 [facility] Comment on above: Performed By: #### C MP, MG, CBC, PT, HS TROP, BNP #### [address] Sodium [Moles/Vol] 135 mmol/L Low 136-146 [facility] Comment on above: Performed By: #### C MP, MG, CBC, PT, HS TROP, BNP #### [place] [address] [place] Urea nitrogen [Mass/Vol] 21 mg/dL Normal 9-23 [facility] Comment on above: Performed By: #### C MP, MG, CBC, PT, HS TROP, BNP #### [address] Complete Blood Count Auto Di ffon 03-01-2021 Basophils (Bld) [#/Vol] 0.0 10*3/uL Normal 0.0-0.2 [facility] Comment on above: Result Comment: PERF ORMED BY: [place] [id number] PATHOLOGIST [employer]TAIN FREDA ALCAZAR M.D. Performed By: #### C MP, MG, CBC, PT, HS TROP, BNP #### [address] Basophils/100 WBC (Bld) 0.3 % Normal . [facility] Comment on above: Performed By: #### C MP, MG, CBC, PT, HS TROP, BNP #### [address] Eosinophils (Bld) [#/Vol] 0.4 10*3/uL Normal 0.0-0.45 [facility] Comment on above: Performed By: #### C MP, MG, CBC, PT, HS TROP, BNP #### [address] Eosinophils/100 WBC (Bld) 3.6 % Normal . [facility] Comment on above: Performed By: #### C MP, MG, CBC, PT, HS TROP, BNP #### [address] Erythrocyte distribution width (RBC) [Ratio] 14.3 % Normal 12.0-14.8 [facility] Comment on above: Performed By: #### C MP, MG, CBC, PT, HS TROP, BNP #### [address] Hematocrit (Bld) [Volume fraction] 45.5 % Normal 38.8-50.0 [facility] Comment on above: Performed By: #### C MP, MG, CBC, PT, HS TROP, BNP #### [address] Hemoglobin (Bld) [Mass/Vol] 14.7 g/dL Normal 13.0-17.0 [facility] Comment on above: Performed By: #### C MP, MG, CBC, PT, HS TROP, BNP #### [address] Lymphocytes (Bld) [#/Vol] 1.4 10*3/uL Normal 1.00-4.8 [facility] Comment on above: Performed By: #### C MP, MG, CBC, PT, HS TROP, BNP #### [address] Lymphocytes/100 WBC (Bld) 12.4 % Normal . [facility] Comment on above: Performed By: #### C MP, MG, CBC, PT, HS TROP, BNP #### [address] MCH (RBC) [Entitic mass] 30.8 pg Normal 27.5-35.2 [facility] Comment on above: Performed By: #### C MP, MG, CBC, PT, HS TROP, BNP #### [address] MCV (RBC) [Entitic vol] 95.8 fL Normal 83.5-101 [facility] Comment on above: Performed By: #### C MP, MG, CBC, PT, HS TROP, BNP #### [address] Mean Corpuscular HGB Conc 32.2 g/dL Low 32.5-35.6 [facility] Comment on above: Performed By: #### C MP, MG, CBC, PT, HS TROP, BNP #### [address] Monocytes (Bld) [#/Vol] 0.9 10*3/uL High 0.0-0.8 [facility] Comment on above: Performed By: #### C MP, MG, CBC, PT, HS TROP, BNP #### [address] Monocytes/100 WBC (Bld) 8.2 % Normal . [facility] Comment on above: Performed By: #### C MP, MG, CBC, PT, HS TROP, BNP #### [address] Neutrophils (Bld) [#/Vol] 8.2 10*3/uL High 1.8-7.7 [facility] Comment on above: Performed By: #### C MP, MG, CBC, PT, HS TROP, BNP #### [address] Neutrophils/100 WBC (Bld) 75.5 % Normal . [facility] Comment on above: Performed By: #### C MP, MG, CBC, PT, HS TROP, BNP #### [address] Nucleated RBC/100 WBC (Bld) [Ratio] 0.1 % Normal 0-0.5 [facility] Comment on above: Performed By: #### C MP, MG, CBC, PT, HS TROP, BNP #### [address] Platelet mean volume (Bld) [Entitic vol] 7.8 fL Normal 6.6-10.1 [facility] Comment on above: Performed By: #### C MP, MG, CBC, PT, HS TROP, BNP #### [address] Platelets (Bld) [#/Vol] 256 10*3/uL Normal 150-450 [facility] Comment on above: Performed By: #### C MP, MG, CBC, PT, HS TROP, BNP #### [address] RBC (Bld) [#/Vol] 4.76 10*6/uL Normal 3.90-5.[address] [facility] Comment on above: Performed By: #### C MP, MG, CBC, PT, HS TROP, BNP #### [address] WBC (Bld) [#/Vol] 10.9 10*3/uL Normal 4.5-11.[address] [facility] Comment on above: Performed By: #### C MP, MG, CBC, PT, HS TROP, BNP #### [address] Glucose Poct Glucometerson 1 05-01-2020 Glucose [Mass/Vol] 200 mg/dL Normal [facility] Comment on above: Result Comment: [place] om Glucose Reference Range is dependent on time and content of last meal. Glucose of more than 200 mg/dL in a nonstressed, ambulatory subject supports the diagnosis of Diabetes Mellitus. PERFORMED BY: [place] [address] PATHOLOGIST [employer]TAIN FREDA ALCAZAR M.D. Performed By: #### C MP, MG, CBC, PT, HS TROP, BNP #### [place] [address] [place] Glucose [Mass/Vol] 166 mg/dL Normal [facility] Comment on above: Result Comment: [place] om Glucose Reference Range is dependent on time and content of last meal. Glucose of more than 200 mg/dL in a nonstressed, ambulatory subject supports the diagnosis of Diabetes Mellitus. PERFORMED BY: [place] [address] PATHOLOGIST [employer]TAIN FREDA ALCAZAR M.D. Performed By: #### C MP, MG, CBC, PT, HS TROP, BNP #### [place] [address] [place] Glucose [Mass/Vol] 209 mg/dL Normal [facility] Comment on above: Result Comment: [place] om Glucose Reference Range is dependent on time and content of last meal. Glucose of more than 200 mg/dL in a nonstressed, ambulatory subject supports the diagnosis of Diabetes Mellitus. PERFORMED BY: [place] [address] PATHOLOGIST [employer]TAIN FREDA ALCAZAR M.D. Performed By: #### C MP, MG, CBC, PT, HS TROP, BNP #### [facility] [address] [place] [address] [place] Glucose [Mass/Vol] 165 mg/dL Normal [facility] Comment on above: Result Comment: [place] om Glucose Reference Range is dependent on time and content of last meal. Glucose of more than 200 mg/dL in a nonstressed, ambulatory subject supports the diagnosis of Diabetes Mellitus. PERFORMED BY: [place] [address] PATHOLOGIST [employer]TAIN FREDA ALCAZAR M.D. Performed By: #### C MP, MG, CBC, PT, HS TROP, BNP #### [address] Glucose [Mass/Vol] 151 mg/dL Normal [facility] Comment on above: Result Comment: [facility] [place] Glucose Reference Range is dependent on time and content of last meal. Glucose of more than 200 mg/dL in a nonstressed, ambulatory subject supports the diagnosis of Diabetes Mellitus. PERFORMED BY: [place] [address] PATHOLOGIST [employer]TAIN FREDA ALCAZAR M.D. Performed By: #### C MP, MG, CBC, PT, HS TROP, BNP #### [address] Basic Metabolic Panelon 02-14 Calcium [Mass/Vol] 8.7 mg/dL Normal 8.2-10.2 [facility] Comment on above: Performed By: #### C MP, MG, CBC, PT, HS TROP, BNP #### [address] Chloride [Moles/Vol] 93 mmol/L Low 95-114 [facility] Comment on above: Performed By: #### C MP, MG, CBC, PT, HS TROP, BNP #### [address] CO2 [Moles/Vol] 30.1 mmol/L High 22.0-30.0 [facility] Comment on above: Performed By: #### C MP, MG, CBC, PT, HS TROP, BNP #### [address] Creatinine [Mass/Vol] 0.97 mg/dL Normal 0.64-1.27 [facility] Comment on above: Performed By: #### C MP, MG, CBC, PT, HS TROP, BNP #### [facility] [address] Creatinine Clr Calc Pharmacy 105.01 [facility] Comment on above: Result Comment: PERF ORMED BY: [place] [address] PATHOLOGIST [employer]TAIN FREDA ALCAZAR M.D. Performed By: #### C MP, MG, CBC, PT, HS TROP, BNP #### [address] Estimated GFR ( Nadia > 60 [facility] Comment on above: Result Comment: GFR estimated reference range: According to KDOQI guidelines, <60 ml/min/1.73m2 is sufficient to diagnose a patient with chronic kidney disease. Performed By: #### C MP, MG, CBC, PT, HS TROP, BNP #### [address] Estimated GFR (Non- Am > 60 [facility] Comment on above: Performed By: #### C MP, MG, CBC, PT, HS TROP, BNP #### [address] Glucose [Mass/Vol] 217 mg/dL High 70-100 [facility] Comment on above: Result Comment: [place] om Glucose Reference Range is dependent on time and content of last meal. Glucose of more than 200 mg/dL in a nonstressed, ambulatory subject supports the diagnosis of Diabetes Mellitus. ADA recommended reference range Performed By: #### C MP, MG, CBC, PT, HS TROP, BNP #### [address] Potassium [Moles/Vol] 4.8 mmol/L Normal 3.5-5.1 [facility] Comment on above: Performed By: #### C MP, MG, CBC, PT, HS TROP, BNP #### [address] Sodium [Moles/Vol] 132 mmol/L Low 136-146 [facility] Comment on above: Performed By: #### C MP, MG, CBC, PT, HS TROP, BNP #### [address] Urea nitrogen [Mass/Vol] 22 mg/dL Normal 9-23 [facility] Comment on above: Performed By: #### C MP, MG, CBC, PT, HS TROP, BNP #### [address] Complete Blood Count Auto Di ffon 02-28-2021 Basophils (Bld) [#/Vol] 0.1 10*3/uL Normal 0.0-0.2 [facility] Comment on above: Result Comment: PERF ORMED BY: [place] [address] PATHOLOGIST [employer] FREDA ALCAZAR M.D. Performed By: #### C MP, MG, CBC, PT, HS TROP, BNP #### [address] Basophils/100 WBC (Bld) 0.6 % Normal . [facility] Comment on above: Performed By: #### C MP, MG, CBC, PT, HS TROP, BNP #### [address] Eosinophils (Bld) [#/Vol] 0.2 10*3/uL Normal 0.0-0.45 [facility] Comment on above: Performed By: #### C MP, MG, CBC, PT, HS TROP, BNP #### [address] Eosinophils/100 WBC (Bld) 1.9 % Normal . [facility] Comment on above: Performed By: #### C MP, MG, CBC, PT, HS TROP, BNP #### [address] Erythrocyte distribution width (RBC) [Ratio] 14.5 % Normal 12.0-14.8 [facility] Comment on above: Performed By: #### C MP, MG, CBC, PT, HS TROP, BNP #### [address] Hematocrit (Bld) [Volume fraction] 44.6 % Normal 38.8-50.0 [facility] Comment on above: Performed By: #### C MP, MG, CBC, PT, HS TROP, BNP #### [address] Hemoglobin (Bld) [Mass/Vol] 14.4 g/dL Normal 13.0-17.0 [facility] Comment on above: Performed By: #### C MP, MG, CBC, PT, HS TROP, BNP #### [address] Lymphocytes (Bld) [#/Vol] 1.1 10*3/uL Normal 1.00-4.8 [facility] Comment on above: Performed By: #### C MP, MG, CBC, PT, HS TROP, BNP #### [address] Lymphocytes/100 WBC (Bld) 10.5 % Normal . [facility] Comment on above: Performed By: #### C MP, MG, CBC, PT, HS TROP, BNP #### [address] MCH (RBC) [Entitic mass] 30.6 pg Normal 27.5-35.2 [facility] Comment on above: Performed By: #### C MP, MG, CBC, PT, HS TROP, BNP #### [address] MCV (RBC) [Entitic vol] 95.1 fL Normal 83.5-101 [facility] Comment on above: Performed By: #### C MP, MG, CBC, PT, HS TROP, BNP #### [address] Mean Corpuscular HGB Conc 32.2 g/dL Low 32.5-35.6 [facility] Comment on above: Performed By: #### C MP, MG, CBC, PT, HS TROP, BNP #### [address] Monocytes (Bld) [#/Vol] 0.9 10*3/uL High 0.0-0.8 [facility] Comment on above: Performed By: #### C MP, MG, CBC, PT, HS TROP, BNP #### [facility] [address] [place] [address] [place] Monocytes/100 WBC (Bld) 8.0 % Normal . [facility] Comment on above: Performed By: #### C MP, MG, CBC, PT, HS TROP, BNP #### [facility] [address] Neutrophils (Bld) [#/Vol] 8.7 10*3/uL High 1.8-7.7 [facility] Comment on above: Performed By: #### C MP, MG, CBC, PT, HS TROP, BNP #### [facility] [address] Neutrophils/100 WBC (Bld) 79.0 % Normal . [facility] Comment on above: Performed By: #### C MP, MG, CBC, PT, HS TROP, BNP #### [facility] [address] [place] [address] [place] Nucleated RBC/100 WBC (Bld) [Ratio] 0.0 % Normal 0-0.5 [facility] Comment on above: Performed By: #### C MP, MG, CBC, PT, HS TROP, BNP #### [facility] [address] Platelet mean volume (Bld) [Entitic vol] 7.6 fL Normal 6.6-10.1 [facility] Comment on above: Performed By: #### C MP, MG, CBC, PT, HS TROP, BNP #### [facility] [address] [place] [address] [place] Platelets (Bld) [#/Vol] 241 10*3/uL Normal 150-450 [facility] Comment on above: Performed By: #### C MP, MG, CBC, PT, HS TROP, BNP #### [facility] [address] [place] [address] [place] RBC (Bld) [#/Vol] 4.69 10*6/uL Normal 3.90-5.[address] [facility] Comment on above: Performed By: #### C MP, MG, CBC, PT, HS TROP, BNP #### [address] WBC (Bld) [#/Vol] 11.0 10*3/uL Normal 4.5-11.[address] [facility] Comment on above: Performed By: #### C MP, MG, CBC, PT, HS TROP, BNP #### [address] Glucose Poct Glucometerson 1 04-30-2020 Glucose [Mass/Vol] 169 mg/dL Normal [facility] Comment on above: Result Comment: [place] om Glucose Reference Range is dependent on time and content of last meal. Glucose of more than 200 mg/dL in a nonstressed, ambulatory subject supports the diagnosis of Diabetes Mellitus. PERFORMED BY: [place] [address] PATHOLOGIST P[employer]OT [employer]AT CAPTAIN FREDA ALCAZAR M.D. Performed By: #### C MP, MG, CBC, PT, HS TROP, BNP #### [address] Glucose [Mass/Vol] 176 mg/dL Normal [facility] Comment on above: Result Comment: [place] om Glucose Reference Range is dependent on time and content of last meal. Glucose of more than 200 mg/dL in a nonstressed, ambulatory subject supports the diagnosis of Diabetes Mellitus. PERFORMED BY: [place] [address] PATHOLOGIST [employer] CAPTAIN FREDA ALCAZAR M.D. Performed By: #### C MP, MG, CBC, PT, HS TROP, BNP #### [address] Glucose [Mass/Vol] 162 mg/dL Normal [facility] Comment on above: Result Comment: [place] om Glucose Reference Range is dependent on time and content of last meal. Glucose of more than 200 mg/dL in a nonstressed, ambulatory subject supports the diagnosis of Diabetes Mellitus. PERFORMED BY: [place] [address] PATHOLOGIST P[employer]OT [employer] CAPTAIN FREDA ALCAZAR M.D. Performed By: #### C MP, MG, CBC, PT, HS TROP, BNP #### [place] [id number] [facility] US venous duplex LE BIon US venous duplex LE BI [facility] Main [place] [address] [place] [address] Ultrasound Report Signed Patient: Corona Wharton MR#: [id number] 1 : 1945 Acct:[id number] Age/Sex: 75 / M ADM Date: 02/24/21 Loc: Room: [address] [place] [address] Type: ADM IN Attending Dr: Sejal Rausch MD Ordering Provider: Sejal Rausch MD Date of Service: 02/27/21 US/US venous duplex LE BI: r/o dvt Copies to: Sejal Rausch MD BILATERAL LOWER EXTREMITY VENOUS DUPLEX INDICATION: Swollen painful legs PROCEDURE: Color-flow duplex scanning is used to interrogate the deep venous system of the right and left lower extremities. The common femoral vein, femoral vein and popliteal vein show good compressibility with normal proximal and distal augmentation. The posterior tibial and peroneal veins are compressible. US/US venous duplex LE BI IMPRESSION: NO EVIDENCE FOR DEEP VEIN THROMBOSIS OR PROXIMAL SUPERFICIAL THROMBOPHLEBITIS IN THE RIGHT OR LEFT LOWER EXTREMITY. Impression dictated by: John Ga M.D.02/28/2021 10:50 AM Dictation Location: [place] [address] Tech: Luz Gonzalez Transcribed By: ARCHANA 02/28/21 1050 Dictated By: John Ga MD 02/28/21 1050 Signed By: 02/28/21 1050 Normal [facility] Basic Metabolic Panelon 11- Calcium [Mass/Vol] 8.7 mg/dL Normal 8.2-10.2 [facility] Comment on above: Performed By: #### C MP, MG, CBC, PT, HS TROP, BNP #### [facility] [address] [place] [address] Chloride [Moles/Vol] 97 mmol/L Normal 95-114 [facility] Comment on above: Performed By: #### C MP, MG, CBC, PT, HS TROP, BNP #### [address] CO2 [Moles/Vol] 26.8 mmol/L Normal 22.0-30.0 [facility] Comment on above: Performed By: #### C MP, MG, CBC, PT, HS TROP, BNP #### [address] Creatinine [Mass/Vol] 1.14 mg/dL Normal 0.64-1.27 [facility] Comment on above: Performed By: #### C MP, MG, CBC, PT, HS TROP, BNP #### [address] Creatinine Clr Calc Pharmacy 88.74 [facility] Comment on above: Result Comment: PERF ORMED BY: [place] [address] PATHOLOGIST [employer] CAPTAIN FREDA ALCAZAR M.D. Performed By: #### C MP, MG, CBC, PT, HS TROP, BNP #### [address] Estimated GFR ( Nadia > 60 [facility] Comment on above: Result Comment: GFR estimated reference range: According to KDOQI guidelines, <60 ml/min/1.73m2 is sufficient to diagnose a patient with chronic kidney disease. Performed By: #### C MP, MG, CBC, PT, HS TROP, BNP #### [address] Estimated GFR (Non- Am > 60 [facility] Comment on above: Performed By: #### C MP, MG, CBC, PT, HS TROP, BNP #### [address] Glucose [Mass/Vol] 153 mg/dL High 70-100 [facility] Comment on above: Result Comment: [place] Glucose Reference Range is dependent on time and content of last meal. Glucose of more than 200 mg/dL in a nonstressed, ambulatory subject supports the diagnosis of Diabetes Mellitus. ADA recommended reference range Performed By: #### C MP, MG, CBC, PT, HS TROP, BNP #### [address] Potassium [Moles/Vol] 4.6 mmol/L Normal 3.5-5.1 [facility] Comment on above: Performed By: #### C MP, MG, CBC, PT, HS TROP, BNP #### [address] Sodium [Moles/Vol] 135 mmol/L Low 136-146 [facility] Comment on above: Performed By: #### C MP, MG, CBC, PT, HS TROP, BNP #### [address] Urea nitrogen [Mass/Vol] 29 mg/dL High 9-23 [facility] Comment on above: Performed By: #### C MP, MG, CBC, PT, HS TROP, BNP #### [address] Complete Blood Count Auto Di ffon 02-27-2021 Basophils (Bld) [#/Vol] 0.1 10*3/uL Normal 0.0-0.2 [facility] Comment on above: Result Comment: PERF ORMED BY: [place] [address] PATHOLOGIST [employer] CAPTAIN FREDA ALCAZAR M.D. Performed By: #### C MP, MG, CBC, PT, HS TROP, BNP #### [address] Basophils/100 WBC (Bld) 1.0 % Normal . [facility] Comment on above: Performed By: #### C MP, MG, CBC, PT, HS TROP, BNP #### [address] Eosinophils (Bld) [#/Vol] 0.1 10*3/uL Normal 0.0-0.45 [facility] Comment on above: Performed By: #### C MP, MG, CBC, PT, HS TROP, BNP #### [address] Eosinophils/100 WBC (Bld) 0.8 % Normal . [facility] Comment on above: Performed By: #### C MP, MG, CBC, PT, HS TROP, BNP #### [address] Erythrocyte distribution width (RBC) [Ratio] 14.7 % Normal 12.0-14.8 [facility] Comment on above: Performed By: #### C MP, MG, CBC, PT, HS TROP, BNP #### [address] Hematocrit (Bld) [Volume fraction] 41.2 % Normal 38.8-50.0 [facility] Comment on above: Performed By: #### C MP, MG, CBC, PT, HS TROP, BNP #### [address] Hemoglobin (Bld) [Mass/Vol] 13.3 g/dL Normal 13.0-17.0 [facility] Comment on above: Performed By: #### C MP, MG, CBC, PT, HS TROP, BNP #### [address] Lymphocytes (Bld) [#/Vol] 1.5 10*3/uL Normal 1.00-4.8 [facility] Comment on above: Performed By: #### C MP, MG, CBC, PT, HS TROP, BNP #### [address] Lymphocytes/100 WBC (Bld) 12.4 % Normal . [facility] Comment on above: Performed By: #### C MP, MG, CBC, PT, HS TROP, BNP #### [address] MCH (RBC) [Entitic mass] 30.9 pg Normal 27.5-35.2 [facility] Comment on above: Performed By: #### C MP, MG, CBC, PT, HS TROP, BNP #### [address] MCV (RBC) [Entitic vol] 95.2 fL Normal 83.5-101 [facility] Comment on above: Performed By: #### C MP, MG, CBC, PT, HS TROP, BNP #### [address] Mean Corpuscular HGB Conc 32.4 g/dL Low 32.5-35.6 [facility] Comment on above: Performed By: #### C MP, MG, CBC, PT, HS TROP, BNP #### [address] Monocytes (Bld) [#/Vol] 1.3 10*3/uL High 0.0-0.8 [facility] Comment on above: Performed By: #### C MP, MG, CBC, PT, HS TROP, BNP #### [address] Monocytes/100 WBC (Bld) 10.6 % Normal . [facility] Comment on above: Performed By: #### C MP, MG, CBC, PT, HS TROP, BNP #### [address] Neutrophils (Bld) [#/Vol] 9.0 10*3/uL High 1.8-7.7 [facility] Comment on above: Performed By: #### C MP, MG, CBC, PT, HS TROP, BNP #### [address] Neutrophils/100 WBC (Bld) 75.2 % Normal . [facility] Comment on above: Performed By: #### C MP, MG, CBC, PT, HS TROP, BNP #### [address] Nucleated RBC/100 WBC (Bld) [Ratio] 0.1 % Normal 0-0.5 [facility] Comment on above: Performed By: #### C MP, MG, CBC, PT, HS TROP, BNP #### [address] Platelet mean volume (Bld) [Entitic vol] 7.8 fL Normal 6.6-10.1 [facility] Comment on above: Performed By: #### C MP, MG, CBC, PT, HS TROP, BNP #### [address] Platelets (Bld) [#/Vol] 247 10*3/uL Normal 150-450 [facility] Comment on above: Performed By: #### C MP, MG, CBC, PT, HS TROP, BNP #### [address] RBC (Bld) [#/Vol] 4.32 10*6/uL Normal 3.90-5.[address] [facility] Comment on above: Performed By: #### C MP, MG, CBC, PT, HS TROP, BNP #### [address] WBC (Bld) [#/Vol] 12.0 10*3/uL High 4.5-11.[address] [facility] Comment on above: Performed By: #### C MP, MG, CBC, PT, HS TROP, BNP #### [address] Glucose Poct Glucometerson 1 04-29-2020 Glucose [Mass/Vol] 154 mg/dL Normal [facility] Comment on above: Result Comment: [facility] [place] Glucose Reference Range is dependent on time and content of last meal. Glucose of more than 200 mg/dL in a nonstressed, ambulatory subject supports the diagnosis of Diabetes Mellitus. PERFORMED BY: [place] [address] PATHOLOGIST [employer] CAPTAIN FREDA ALCAZAR M.D. Performed By: #### C MP, MG, CBC, PT, HS TROP, BNP #### [address] Commemt1 Glu2: Cleaned Meter [facility] Comment on above: Result Comment: PERF ORMED BY: [place] [address] PATHOLOGIST P[employer] CAPTAIN FREDA ALCAZAR M.D. Performed By: #### C MP, MG, CBC, PT, HS TROP, BNP #### [address] Glucose [Mass/Vol] 231 mg/dL Normal [facility] Comment on above: Result Comment: [place] om Glucose Reference Range is dependent on time and content of last meal. Glucose of more than 200 mg/dL in a nonstressed, ambulatory subject supports the diagnosis of Diabetes Mellitus. Performed By: #### C MP, MG, CBC, PT, HS TROP, BNP #### [address] Commemt1 Glu2: Cleaned Meter [facility] Comment on above: Result Comment: PERF ORMED BY: [place] [address] PATHOLOGIST P[employer] CAPTAIN FREDA ALCAZAR M.D. Performed By: #### C MP, MG, CBC, PT, HS TROP, BNP #### [place] [address] [place] Glucose [Mass/Vol] 226 mg/dL Normal [facility] Comment on above: Result Comment: [place] om Glucose Reference Range is dependent on time and content of last meal. Glucose of more than 200 mg/dL in a nonstressed, ambulatory subject supports the diagnosis of Diabetes Mellitus. Performed By: #### C MP, MG, CBC, PT, HS TROP, BNP #### [facility] [address] [place] [address] Commemt1 Glu2: Cleaned Meter [facility] Comment on above: Result Comment: PERF ORMED BY: [place] [address] PATHOLOGIST P[employer] CAPTAIN FREDA ALCAZAR M.D. Performed By: #### C MP, MG, CBC, PT, HS TROP, BNP #### [address] Glucose [Mass/Vol] 149 mg/dL Normal [facility] Comment on above: Result Comment: [place] Glucose Reference Range is dependent on time and content of last meal. Glucose of more than 200 mg/dL in a nonstressed, ambulatory subject supports the diagnosis of Diabetes Mellitus. Performed By: #### C MP, MG, CBC, PT, HS TROP, BNP #### [address] Arterial Blood [place] 021 ABG Base Excess 3.9 mmol/L High -3.0-3.0 [facility] Comment on above: Performed By: #### C MP, MG, CBC, PT, HS TROP, BNP #### [address] ABG Frac Inspired O2 30 % Normal [facility] Comment on above: Performed By: #### C MP, MG, CBC, PT, HS TROP, BNP #### [address] ABG Oxygen Content 8.2 mmol/L Normal 6.6-9.7 [facility] Comment on above: Performed By: #### C MP, MG, CBC, PT, HS TROP, BNP #### [address] ABG Oxygen Saturation 95.3 % Normal 95.0-100.0 [facility] Comment on above: Performed By: #### C MP, MG, CBC, PT, HS TROP, BNP #### [address] ABG PCO2 56.9 mm[Hg] Off scale high 35.0-45.0 [facility] Comment on above: Performed By: #### C MP, MG, CBC, PT, HS TROP, BNP #### [address] ABG PH 7.35 Normal 7.35-7.45 [facility] Comment on above: Performed By: #### C MP, MG, CBC, PT, HS TROP, BNP #### [address] ABG PO2 78.2 mm[Hg] Low 80.0-100.0 [facility] Comment on above: Performed By: #### C MP, MG, CBC, PT, HS TROP, BNP #### [address] CO2 [Moles/Vol] 32.7 mmol/L High 23.0-27.0 [facility] Comment on above: Performed By: #### C MP, MG, CBC, PT, HS TROP, BNP #### [address] HCO3 (Bld) [Moles/Vol] 30.9 mmol/L High 23.0-29.0 [facility] Comment on above: Performed By: #### C MP, MG, CBC, PT, HS TROP, BNP #### [address] Respiratory Critical Normal [facility] Comment on above: Result Comment: Crit ical Value called on: 02/26/2021 at 05:49 PERFORMED BY: [place] [address] PATHOLOGIST [employer] CAPTAIN FREDA ALCAZAR M.D. Performed By: #### C MP, MG, CBC, PT, HS TROP, BNP #### [address] VBG Draw Site Right Radial Normal [facility] Comment on above: Performed By: #### C MP, MG, CBC, PT, HS TROP, BNP #### [address] Basic Metabolic Panelon 02-14 Calcium [Mass/Vol] 8.9 mg/dL Normal 8.2-10.2 [facility] Comment on above: Performed By: #### C MP, MG, CBC, PT, HS TROP, BNP #### [facility] [address] Chloride [Moles/Vol] 96 mmol/L Normal 95-114 [facility] Comment on above: Performed By: #### C MP, MG, CBC, PT, HS TROP, BNP #### [address] CO2 [Moles/Vol] 31.8 mmol/L High 22.0-30.0 [facility] Comment on above: Performed By: #### C MP, MG, CBC, PT, HS TROP, BNP #### [address] Creatinine [Mass/Vol] 1.33 mg/dL High 0.64-1.27 [facility] Comment on above: Performed By: #### C MP, MG, CBC, PT, HS TROP, BNP #### [address] Creatinine Clr Calc Pharmacy 76.06 [facility] Comment on above: Result Comment: PERF ORMED BY: [place] [address] PATHOLOGIST P[employer] CAPTAIN FREDA ALCAZAR M.D. Performed By: #### C MP, MG, CBC, PT, HS TROP, BNP #### [address] Estimated GFR ( Nadia > 60 [facility] Comment on above: Result Comment: GFR estimated reference range: According to KDOQI guidelines, <60 ml/min/1.73m2 is sufficient to diagnose a patient with chronic kidney disease. Performed By: #### C MP, MG, CBC, PT, HS TROP, BNP #### [address] Estimated GFR (Non- Am 53 [facility] Comment on above: Performed By: #### C MP, MG, CBC, PT, HS TROP, BNP #### [address] Glucose [Mass/Vol] 191 mg/dL High 70-100 [facility] Comment on above: Result Comment: [place] Glucose Reference Range is dependent on time and content of last meal. Glucose of more than 200 mg/dL in a nonstressed, ambulatory subject supports the diagnosis of Diabetes Mellitus. ADA recommended reference range Performed By: #### C MP, MG, CBC, PT, HS TROP, BNP #### [address] Potassium [Moles/Vol] 4.7 mmol/L Normal 3.5-5.1 [facility] Comment on above: Performed By: #### C MP, MG, CBC, PT, HS TROP, BNP #### [address] Sodium [Moles/Vol] 137 mmol/L Normal 136-146 [facility] Comment on above: Performed By: #### C MP, MG, CBC, PT, HS TROP, BNP #### [address] Urea nitrogen [Mass/Vol] 32 mg/dL High 9-23 [facility] Comment on above: Performed By: #### C MP, MG, CBC, PT, HS TROP, BNP #### [address] Blood Cultureon 02-26-2021 Bacteria identified Cx Nom (Bld) NO GROWTH 5 DAYS PERFORMED BY: [place] [address] PATHOLOGIST [employer] CAPTAIN FREDA ALCAZAR M.D. [facility] Comment on above: Performed By: #### C MP, MG, CBC, PT, HS TROP, BNP #### [address] Bacteria identified Cx Nom (Bld) NO GROWTH 5 DAYS PERFORMED BY: [place] [address] PATHOLOGIST [employer] CAPTAIN FREDA ALCAZAR M.D. [facility] Comment on above: Performed By: #### C MP, MG, CBC, PT, HS TROP, BNP #### [address] Complete Blood Count Auto Di ffon 02-26-2021 Basophils (Bld) [#/Vol] 0.1 10*3/uL Normal 0.0-0.2 [facility] Comment on above: Result Comment: PERF ORMED BY: [place] [address] PATHOLOGIST [employer] CAPTAIN FREDA ALCAZAR M.D. Performed By: #### C MP, MG, CBC, PT, HS TROP, BNP #### [address] Basophils/100 WBC (Bld) 0.6 % Normal . [facility] Comment on above: Performed By: #### C MP, MG, CBC, PT, HS TROP, BNP #### [address] Eosinophils (Bld) [#/Vol] 0.0 10*3/uL Normal 0.0-0.45 [facility] Comment on above: Performed By: #### C MP, MG, CBC, PT, HS TROP, BNP #### [address] Eosinophils/100 WBC (Bld) 0.2 % Normal . [facility] Comment on above: Performed By: #### C MP, MG, CBC, PT, HS TROP, BNP #### [address] Erythrocyte distribution width (RBC) [Ratio] 14.8 % Normal 12.0-14.8 [facility] Comment on above: Performed By: #### C MP, MG, CBC, PT, HS TROP, BNP #### [address] Hematocrit (Bld) [Volume fraction] 43.2 % Normal 38.8-50.0 [facility] Comment on above: Performed By: #### C MP, MG, CBC, PT, HS TROP, BNP #### [place] [address] [place] Hemoglobin (Bld) [Mass/Vol] 13.9 g/dL Normal 13.0-17.0 [facility] Comment on above: Performed By: #### C MP, MG, CBC, PT, HS TROP, BNP #### [address] Lymphocytes (Bld) [#/Vol] 1.0 10*3/uL Normal 1.00-4.8 [facility] Comment on above: Performed By: #### C MP, MG, CBC, PT, HS TROP, BNP #### [address] Lymphocytes/100 WBC (Bld) 6.0 % Normal . [facility] Comment on above: Performed By: #### C MP, MG, CBC, PT, HS TROP, BNP #### [address] MCH (RBC) [Entitic mass] 30.9 pg Normal 27.5-35.2 [facility] Comment on above: Performed By: #### C MP, MG, CBC, PT, HS TROP, BNP #### [address] MCV (RBC) [Entitic vol] 95.9 fL Normal 83.5-101 [facility] Comment on above: Performed By: #### C MP, MG, CBC, PT, HS TROP, BNP #### [address] Mean Corpuscular HGB Conc 32.2 g/dL Low 32.5-35.6 [facility] Comment on above: Performed By: #### C MP, MG, CBC, PT, HS TROP, BNP #### [address] Monocytes (Bld) [#/Vol] 1.2 10*3/uL High 0.0-0.8 [facility] Comment on above: Performed By: #### C MP, MG, CBC, PT, HS TROP, BNP #### [address] Monocytes/100 WBC (Bld) 7.2 % Normal . [facility] Comment on above: Performed By: #### C MP, MG, CBC, PT, HS TROP, BNP #### [address] Neutrophils (Bld) [#/Vol] 14.2 10*3/uL High 1.8-7.7 [facility] Comment on above: Performed By: #### C MP, MG, CBC, PT, HS TROP, BNP #### [address] Neutrophils/100 WBC (Bld) 86.0 % Normal . [facility] Comment on above: Performed By: #### C MP, MG, CBC, PT, HS TROP, BNP #### [address] Nucleated RBC/100 WBC (Bld) [Ratio] 0.0 % Normal 0-0.5 [facility] Comment on above: Performed By: #### C MP, MG, CBC, PT, HS TROP, BNP #### [address] Platelet mean volume (Bld) [Entitic vol] 7.7 fL Normal 6.6-10.1 [facility] Comment on above: Performed By: #### C MP, MG, CBC, PT, HS TROP, BNP #### [place] [address] [place] Platelets (Bld) [#/Vol] 233 10*3/uL Normal 150-450 [facility] Comment on above: Performed By: #### C MP, MG, CBC, PT, HS TROP, BNP #### [place] [address] [place] RBC (Bld) [#/Vol] 4.50 10*6/uL Normal 3.90-5.[address] [facility] Comment on above: Performed By: #### C MP, MG, CBC, PT, HS TROP, BNP #### [place] [address] [place] WBC (Bld) [#/Vol] 16.5 10*3/uL High 4.5-11.[address] [facility] Comment on above: Performed By: #### C MP, MG, CBC, PT, HS TROP, BNP #### [facility] [address] [place] [address] [place] Dipstick and Microscopicon 1 04-28-2020 Appearance (U) Clear Normal Clear [facility] Comment on above: Order Comment: Name Collection Type:: [place] Catheter Performed By: #### C MP, MG, CBC, PT, HS TROP, BNP #### [facility] [address] Bacteria,Urine Rare High None Seen [facility] Comment on above: Order Comment: Name Collection Type:: [place] Catheter Performed By: #### C MP, MG, CBC, PT, HS TROP, BNP #### [address] Bilirubin,Urine Negative Normal Negative [facility] Comment on above: Order Comment: Name Collection Type:: [place] Catheter Performed By: #### C MP, MG, CBC, PT, HS TROP, BNP #### [facility] [address] Color (U) Yellow Normal Yellow [facility] Comment on above: Order Comment: Name Collection Type:: [place] Catheter Performed By: #### C MP, MG, CBC, PT, HS TROP, BNP #### [facility] [address] [place] [address] [place] Glucose Ql (U) Normal Normal Normal [facility] Comment on above: Order Comment: Name Collection Type:: [place] Catheter Performed By: #### C MP, MG, CBC, PT, HS TROP, BNP #### [facility] [address] [place] [address] [place] Hyaline Casts,Urine 0-8 Normal 0-[address] [facility] Comment on above: Order Comment: Name Collection Type:: [place] Catheter Performed By: #### C MP, MG, CBC, PT, HS TROP, BNP #### [facility] [address] [place] [address] [place] Ketones Ql (U) Trace High Negative [facility] Comment on above: Order Comment: Name Collection Type:: [place] Catheter Performed By: #### C MP, MG, CBC, PT, HS TROP, BNP #### [address] Leukocyte esterase Test strip Ql (U) 1+ High Negative [facility] Comment on above: Order Comment: Name Collection Type:: [place] Catheter Performed By: #### C MP, MG, CBC, PT, HS TROP, BNP #### [address] Nitrite,Urine Negative Normal Negative [facility] Comment on above: Order Comment: Name Collection Type:: [place] Catheter Performed By: #### C MP, MG, CBC, PT, HS TROP, BNP #### [address] Occult Blood,Urine 3+ High Negative [facility] Comment on above: Order Comment: Name Collection Type:: [place] Catheter Result Comment: PERF ORMED BY: [place] [address] PATHOLOGIST P[employer]OT [employer] CAPTAIN FREDA ALCAZAR M.D. Performed By: #### C MP, MG, CBC, PT, HS TROP, BNP #### [address] pH (U) 5.0 [pH] Normal 5.0-9.0 [facility] Comment on above: Order Comment: Name Collection Type:: [place] Catheter Performed By: #### C MP, MG, CBC, PT, HS TROP, BNP #### [address] Protein (U) [Mass/Vol] 100 mg/dL High Negative [facility] Comment on above: Order Comment: Name Collection Type:: [place] Catheter Performed By: #### C MP, MG, CBC, PT, HS TROP, BNP #### [address] RBC,Urine 20-49 High 0-4 [facility] Comment on above: Order Comment: Name Collection Type:: [place] Catheter Performed By: #### C MP, MG, CBC, PT, HS TROP, BNP #### [address] Specificy [place],Urine 1.027 Normal 1.001-1.030 [facility] Comment on above: Order Comment: Name Collection Type:: [place] Catheter Performed By: #### C MP, MG, CBC, PT, HS TROP, BNP #### [address] Squamous Epithelial Cell,Urine None Seen Normal 0-2 [facility] Comment on above: Order Comment: Name Collection Type:: [place] Catheter Performed By: #### C MP, MG, CBC, PT, HS TROP, BNP #### [address] Urobilinogen,Urine Normal Normal Normal [facility] Comment on above: Order Comment: Name Collection Type:: [place] Catheter Performed By: #### C MP, MG, CBC, PT, HS TROP, BNP #### [address] WBC,Urine 20-49 High 0-4 [facility] Comment on above: Order Comment: Name Collection Type:: [place] Catheter Performed By: #### C MP, MG, CBC, PT, HS TROP, BNP #### [address] Yeast,Urine 1+ Critically abnormal None Seen [facility] Comment on above: Order Comment: Name Collection Type:: [place] Catheter Result Comment: PERF ORMED BY: [place] [address] PATHOLOGIST PILOT BOAT CAPTAIN FREDA ALCAZAR M.D. Performed By: #### C MP, MG, CBC, PT, HS TROP, BNP #### [address] Glucose Poct Glucometerson 1 04-28-2020 Glucose [Mass/Vol] 255 mg/dL Normal [facility] Comment on above: Result Comment: [place] om Glucose Reference Range is dependent on time and content of last meal. Glucose of more than 200 mg/dL in a nonstressed, ambulatory subject supports the diagnosis of Diabetes Mellitus. PERFORMED BY: [place] [address] PATHOLOGIST P[employer]OT BOAT CAPTAIN FREDA ALCAZAR M.D. Performed By: #### C MP, MG, CBC, PT, HS TROP, BNP #### [address] Commemt1 Glu2: Cleaned Meter Normal [facility] Comment on above: Result Comment: PERF ORMED BY: [place] [address] PATHOLOGIST P[employer]OT BOAT CAPTAIN FREDA ALCAZAR M.D. Performed By: #### C MP, MG, CBC, PT, HS TROP, BNP #### [address] Glucose [Mass/Vol] 141 mg/dL Normal [facility] Comment on above: Result Comment: [place] om Glucose Reference Range is dependent on time and content of last meal. Glucose of more than 200 mg/dL in a nonstressed, ambulatory subject supports the diagnosis of Diabetes Mellitus. Performed By: #### C MP, MG, CBC, PT, HS TROP, BNP #### [address] Commemt1 Glu2: Cleaned Meter [facility] Comment on above: Result Comment: PERF ORMED BY: [place] [address] PATHOLOGIST P[employer]OT BOAT CAPTAIN FREDA ALCAZAR M.D. Performed By: #### C MP, MG, CBC, PT, HS TROP, BNP #### [place] [address] [place] Glucose [Mass/Vol] 178 mg/dL Normal [facility] Comment on above: Result Comment: [place] om Glucose Reference Range is dependent on time and content of last meal. Glucose of more than 200 mg/dL in a nonstressed, ambulatory subject supports the diagnosis of Diabetes Mellitus. Performed By: #### C MP, MG, CBC, PT, HS TROP, BNP #### [address] Glucose [Mass/Vol] 156 mg/dL Normal [facility] Comment on above: Result Comment: [place] Glucose Reference Range is dependent on time and content of last meal. Glucose of more than 200 mg/dL in a nonstressed, ambulatory subject supports the diagnosis of Diabetes Mellitus. PERFORMED BY: [place] [address] PATHOLOGIST P[employer]OT BOAT CAPTAIN FREDA ALCAZAR M.D. Performed By: #### C MP, MG, CBC, PT, HS TROP, BNP #### [address] Urine Cultureon 02-26-2021 Bacteria identified Cx Nom (U) No Growth 2 Days PERFORMED BY: [place] [address] PATHOLOGIST P[employer]OT BOAT CAPTAIN FREDA ALCAZAR M.D. Normal [facility] Comment on above: Performed By: #### C MP, MG, CBC, PT, HS TROP, BNP #### [address] Arterial Blood Gason 021 ABG Base Excess 0.3 mmol/L Normal -3.0-3.0 [facility] Comment on above: Performed By: #### C MP, MG, CBC, PT, HS TROP, BNP #### [address] ABG Frac Inspired O2 50 % Normal [facility] Comment on above: Performed By: #### C MP, MG, CBC, PT, HS TROP, BNP #### [address] ABG Oxygen Content 9.5 mmol/L Normal 6.6-9.7 [facility] Comment on above: Performed By: #### C MP, MG, CBC, PT, HS TROP, BNP #### [address] ABG Oxygen Saturation 97.5 % Normal 95.0-100.0 [facility] Comment on above: Performed By: #### C MP, MG, CBC, PT, HS TROP, BNP #### [address] ABG PCO2 64.0 mm[Hg] Off scale high 35.0-45.0 [facility] Comment on above: Performed By: #### C MP, MG, CBC, PT, HS TROP, BNP #### [address] ABG PH 7.27 Low 7.35-7.45 [facility] Comment on above: Performed By: #### C MP, MG, CBC, PT, HS TROP, BNP #### [address] ABG PO2 100.4 mm[Hg] High 80.0-100.0 [facility] Comment on above: Performed By: #### C MP, MG, CBC, PT, HS TROP, BNP #### [address] ABG Pressure Support 8.0 Normal [facility] Comment on above: Performed By: #### C MP, MG, CBC, PT, HS TROP, BNP #### [address] CO2 [Moles/Vol] 31.0 mmol/L High 23.0-27.0 [facility] Comment on above: Performed By: #### C MP, MG, CBC, PT, HS TROP, BNP #### [address] CPAP 8.0 Normal [facility] Comment on above: Performed By: #### C MP, MG, CBC, PT, HS TROP, BNP #### [address] HCO3 (Bld) [Moles/Vol] 29.0 mmol/L Normal 23.0-29.0 [facility] Comment on above: Performed By: #### C MP, MG, CBC, PT, HS TROP, BNP #### [address] Respiratory Critical Normal [facility] Comment on above: Result Comment: Crit ical Value called on: 02/25/2021 at 00:23 PERFORMED BY: [place] [address] PATHOLOGIST P[employer]OT BOAT CAPTAIN FREDA ALCAZAR M.D. Performed By: #### C MP, MG, CBC, PT, HS TROP, BNP #### [address] VBG Draw Site Right Radial [facility] Comment on above: Performed By: #### C MP, MG, CBC, PT, HS TROP, BNP #### [address] Basic Metabolic Panelon 02-14 Calcium [Mass/Vol] 9.0 mg/dL Normal 8.2-10.2 [facility] Comment on above: Performed By: #### C MP, MG, CBC, PT, HS TROP, BNP #### [address] Chloride [Moles/Vol] 96 mmol/L Normal 95-114 [facility] Comment on above: Performed By: #### C MP, MG, CBC, PT, HS TROP, BNP #### [address] CO2 [Moles/Vol] 27.4 mmol/L Normal 22.0-30.0 [facility] Comment on above: Performed By: #### C MP, MG, CBC, PT, HS TROP, BNP #### [address] Creatinine [Mass/Vol] 1.21 mg/dL Normal 0.64-1.27 [facility] Comment on above: Performed By: #### C MP, MG, CBC, PT, HS TROP, BNP #### [address] Creatinine Clr Calc Pharmacy 84.15 [facility] Comment on above: Result Comment: PERF ORMED BY: [place] [address] PATHOLOGIST P[employer]OT BOAT CAPTAIN FREDA ALCAZRA M.D. Performed By: #### C MP, MG, CBC, PT, HS TROP, BNP #### [address] Estimated GFR ( Nadia > 60 Normal [facility] Comment on above: Result Comment: GFR estimated reference range: According to KDOQI guidelines, <60 ml/min/1.73m2 is sufficient to diagnose a patient with chronic kidney disease. Performed By: #### C MP, MG, CBC, PT, HS TROP, BNP #### [address] Estimated GFR (Non- Am 59 Normal [facility] Comment on above: Performed By: #### C MP, MG, CBC, PT, HS TROP, BNP #### [address] Glucose [Mass/Vol] 196 mg/dL High 70-100 [facility] Comment on above: Result Comment: [place] om Glucose Reference Range is dependent on time and content of last meal. Glucose of more than 200 mg/dL in a nonstressed, ambulatory subject supports the diagnosis of Diabetes Mellitus. ADA recommended reference range Performed By: #### C MP, MG, CBC, PT, HS TROP, BNP #### [address] Potassium [Moles/Vol] 5.2 mmol/L High 3.5-5.1 [facility] Comment on above: Performed By: #### C MP, MG, CBC, PT, HS TROP, BNP #### [address] Sodium [Moles/Vol] 133 mmol/L Low 136-146 [facility] Comment on above: Performed By: #### C MP, MG, CBC, PT, HS TROP, BNP #### [address] Urea nitrogen [Mass/Vol] 25 mg/dL High 9-23 [facility] Comment on above: Performed By: #### C MP, MG, CBC, PT, HS TROP, BNP #### [facility] [address] [place] [id number] [facility] echo transthoracicon [facility] echo transthoracic [facility] Main [place] [address] [place] [address] Echocardiogram Signed Patient: Corona Wharton MR#: [id number] 1 : 1945 Acct:[id number] Age/Sex: 75 / M ADM Date: 02/24/21 Loc: Room: [address] [place] [address] Type: ADM IN Attending Dr: Sejal Rausch MD Ordering Provider: Sejal Rausch MD Date of Service: 02/24/21 [facility] echo transthoracic: sob Copies to: Tala Teran MD, [facility] Sejal Rausch MD BSA: 2.7 m2 BP: 147/81 mmHg HR: 97 Reason For Study: sob History: DM. HTN. HLD. CVA. Morbid Obesity. Former Smoker. Interpretation Summary Mild concentric left ventricular hypertrophy. Ejection Fraction = 65-70%. A variety of Doppler measurements indicate impaired left ventricular relaxation, which is associated with grade I/IV or mild diastolic dysfunction. Procedure/Quality: A two-dimensional transthoracic echocardiogram with color flow, Doppler and injection of contrast agent Definity was performed. The study was technically fair in quality. Left Ventricle: Mild concentric left ventricular hypertrophy. Left ventricular systolic function is normal. Ejection Fraction = 65-70%. A variety of Doppler measurements indicate impaired left ventricular relaxation, which is associated with grade I/IV or mild diastolic dysfunction. Left Atrium: The left atrium appears normal in size. The atrial septum appears normal. Right Atrium: The right atrium appears normal in size. Right Ventricle: The right ventricular size, thickness and function are normal. Aortic Valve: The aortic valve is mildly sclerotic. Mitral Valve: The mitral valve is mildly sclerotic. Tricuspid Valve: The tricuspid valve is normal. Pulmonic Valve: The pulmonic valve is not well visualized. Arteries: Mild aortic root dilatation. Pericardium/Pleura: No pericardial effusion seen. There is no pleural effusion. IVC/Hepatic Viens: Mildly dilated inferior vena cava. Miscellaneous: No thrombus, vegetation or mass is seen. Measurements with Normals IVSd: 1.5 cm (0.7-1.1 cm)LVIDd: 3.2 cm (3.7-5.4 cm) LVPWd: 1.5 cm (0.7-1.1 cm)LVIDs: 2.2 cm (2.3-3.6 cm) LA dimension: 3.6 cm (2.3-4.0 cm)Ao root diam: 3.8 cm(2.0-3.6 cm) asc Aorta Diam: 4.2 cm(2.1-3.4cm) Doppler with Normals LV V1 max: 125.3 cm/sec (0.7-1.7m/s)MV E max naeem: 116.0 cm/sec(0.8-1.3m/s) MV A max naeem: 162.6 cm/sec(0.0-0.0m/s) MV E/A: 0.71 (<1.5) MMode/2D Measurements Calculations RV S Naeem: FS: 30.8 % Ao root area: LVOT diam: 2.1 cm 17.5 cm/sec EDV(Teich): 11.2 cm2 LVOT area: 3.4 cm2 40.5 ml ESV(Teich): 16.3 ml EF(Teich): 59.8 % __ LVLd ap4: 7.3 cm SV(MOD-sp4): LAV(MOD-sp4): LA A2 area: 29.1 cm2 EDV(MOD-sp4): 71.7 ml 76.9 ml 101.0 ml LAV(MOD-sp2): LA A4 area: 26.8 cm2 LVLs ap4: 7.0 cm 82.2 ml LA length (vol): ESV(MOD-sp4): 7.4 cm 29.3 ml LA vol: 89.3 ml EF(MOD-sp4): 71.0 % LA vol index: 32.9 ml/m2 Doppler Measurements Calculations MV dec time: MV V2 max: E/E' lat: 21.8 MV P1/2t max naeem: 0.19 sec 172.6 cm/sec E/E' med: 22.7 130.9 cm/sec MV max PG: MV P1/2t: 61.1 msec 11.9 mmHg MV V2 mean: MVA(P1/2t): 3.6 cm2 92.9 cm/sec MV dec slope: MV mean P.3 cm/sec2 4.7 mmHg MV V2 VTI: 30.1 cm MVA(VTI): 2.6 cm2 __ Ao V2 max: LV V1 max PG: RAP systole: 161.0 cm/sec 6.3 mmHg 8.0 mmHg Ao max PG: LV V1 mean P.4 mmHg 4.3 mmHg Ao mean PG: LV V1 mean: 7.3 mmHg 96.4 cm/sec Ao V2 mean: LV V1 VTI: 23.1 cm 131.4 cm/sec Ao V2 VTI: 28.2 cm GUY(I,D): 2.7 cm2 GUY(V,D): 2.6 cm2 Transcribed By: KRISTAL 02/25/21 1033 Dictated By: Tala Teran MD, [facility] 02/25/21 0919 Signed By: 02/25/21 1033 Normal [facility] Glucose Poct Glucometerson 1 04-27-2020 Glucose [Mass/Vol] 176 mg/dL Normal [facility] Comment on above: Result Comment: [facility] [place] Glucose Reference Range is dependent on time and content of last meal. Glucose of more than 200 mg/dL in a nonstressed, ambulatory subject supports the diagnosis of Diabetes Mellitus. PERFORMED BY: [place] [address] PATHOLOGIST P[employer]OT BOAT CAPTAIN FREDA ALCAZAR M.D. Performed By: #### C MP, MG, CBC, PT, HS TROP, BNP #### [address] Commemt1 Glu2: Cleaned Meter [facility] Comment on above: Result Comment: PERF ORMED BY: [place] [address] PATHOLOGIST PILOT BOAT CAPTAIN FREDA ALCAZAR M.D. Performed By: #### C MP, MG, CBC, PT, HS TROP, BNP #### [address] Glucose [Mass/Vol] 198 mg/dL Normal [facility] Comment on above: Result Comment: [place] om Glucose Reference Range is dependent on time and content of last meal. Glucose of more than 200 mg/dL in a nonstressed, ambulatory subject supports the diagnosis of Diabetes Mellitus. Performed By: #### C MP, MG, CBC, PT, HS TROP, BNP #### [address] Commemt1 Glu2: Cleaned Meter [facility] Comment on above: Result Comment: PERF ORMED BY: [place] [address] PATHOLOGIST PILOT BOAT CAPTAIN FREDA ALCAZAR M.D. Performed By: #### C MP, MG, CBC, PT, HS TROP, BNP #### [address] Glucose [Mass/Vol] 197 mg/dL Normal [facility] Comment on above: Result Comment: [place] om Glucose Reference Range is dependent on time and content of last meal. Glucose of more than 200 mg/dL in a nonstressed, ambulatory subject supports the diagnosis of Diabetes Mellitus. Performed By: #### C MP, MG, CBC, PT, HS TROP, BNP #### [facility] [address] [place] [address] Commemt1 Glu2: Cleaned Meter [facility] Comment on above: Result Comment: PERF ORMED BY: [place] [address] PATHOLOGIST PILOT BOAT CAPTAIN FREDA ALCAZAR M.D. Performed By: #### C MP, MG, CBC, PT, HS TROP, BNP #### [facility] [address] [place] [address] [place] Glucose [Mass/Vol] 194 mg/dL Normal [facility] Comment on above: Result Comment: [place] om Glucose Reference Range is dependent on time and content of last meal. Glucose of more than 200 mg/dL in a nonstressed, ambulatory subject supports the diagnosis of Diabetes Mellitus. Performed By: #### C MP, MG, CBC, PT, HS TROP, BNP #### [facility] [address] Glucose [Mass/Vol] 262 mg/dL Normal [facility] Comment on above: Result Comment: [place] om Glucose Reference Range is dependent on time and content of last meal. Glucose of more than 200 mg/dL in a nonstressed, ambulatory subject supports the diagnosis of Diabetes Mellitus. PERFORMED BY: [place] [address] PATHOLOGIST PILOT BOAT CAPTAIN FREDA ALCAZAR M.D. Performed By: #### C MP, MG, CBC, PT, HS TROP, BNP #### [address] Glucose [Mass/Vol] 263 mg/dL Normal [facility] Comment on above: Result Comment: [place] om Glucose Reference Range is dependent on time and content of last meal. Glucose of more than 200 mg/dL in a nonstressed, ambulatory subject supports the diagnosis of Diabetes Mellitus. PERFORMED BY: [address] [place] [address] PATHOLOGIST P[employer]OT BOAT CAPTAIN FREDA ALCAZAR M.D. Performed By: #### C MP, MG, CBC, PT, HS TROP, BNP #### [facility] [address] [place] [address] [place] Potassiumon 02-25-2021 Potassium [Moles/Vol] 4.8 mmol/L Normal 3.5-5.1 [facility] Comment on above: Result Comment: PERF ORMED BY: [address] [place] [address] PATHOLOGIST P[employer]OT [employer]AT CAPTAIN FREDA ALCAZAR M.D. Performed By: #### C MP, MG, CBC, PT, HS TROP, BNP #### [address] Scan and CBCon 02-25-2021 Basophils (Bld) [#/Vol] 0.1 10*3/uL Normal 0.0-0.2 [facility] Comment on above: Performed By: #### C MP, MG, CBC, PT, HS TROP, BNP #### [address] Basophils/100 WBC (Bld) 0.4 % Normal . [facility] Comment on above: Performed By: #### C MP, MG, CBC, PT, HS TROP, BNP #### [address] Eosinophils (Bld) [#/Vol] 0.0 10*3/uL Normal 0.0-0.45 [facility] Comment on above: Performed By: #### C MP, MG, CBC, PT, HS TROP, BNP #### [address] Eosinophils/100 WBC (Bld) 0.0 % Normal . [facility] Comment on above: Performed By: #### C MP, MG, CBC, PT, HS TROP, BNP #### [address] Erythrocyte distribution width (RBC) [Ratio] 14.6 % Normal 12.0-14.8 [facility] Comment on above: Performed By: #### C MP, MG, CBC, PT, HS TROP, BNP #### [address] Hematocrit (Bld) [Volume fraction] 44.7 % Normal 38.8-50.0 [facility] Comment on above: Performed By: #### C MP, MG, CBC, PT, HS TROP, BNP #### [address] Hemoglobin (Bld) [Mass/Vol] 14.1 g/dL Normal 13.0-17.0 [facility] Comment on above: Performed By: #### C MP, MG, CBC, PT, HS TROP, BNP #### [address] Lymphocytes (Bld) [#/Vol] 0.8 10*3/uL Low 1.00-4.8 [facility] Comment on above: Performed By: #### C MP, MG, CBC, PT, HS TROP, BNP #### [address] Lymphocytes/100 WBC (Bld) 2.8 % Normal . [facility] Comment on above: Performed By: #### C MP, MG, CBC, PT, HS TROP, BNP #### [address] MCH (RBC) [Entitic mass] 30.3 pg Normal 27.5-35.2 [facility] Comment on above: Performed By: #### C MP, MG, CBC, PT, HS TROP, BNP #### [address] MCV (RBC) [Entitic vol] 96.2 fL Normal 83.5-101 [facility] Comment on above: Performed By: #### C MP, MG, CBC, PT, HS TROP, BNP #### [address] Mean Corpuscular HGB Conc 31.5 g/dL Low 32.5-35.6 [facility] Comment on above: Performed By: #### C MP, MG, CBC, PT, HS TROP, BNP #### [address] Monocytes (Bld) [#/Vol] 2.1 10*3/uL High 0.0-0.8 [facility] Comment on above: Performed By: #### C MP, MG, CBC, PT, HS TROP, BNP #### [address] Monocytes/100 WBC (Bld) 7.0 % Normal . [facility] Comment on above: Performed By: #### C MP, MG, CBC, PT, HS TROP, BNP #### [address] Neutrophils (Bld) [#/Vol] 27.4 10*3/uL High 1.8-7.7 [facility] Comment on above: Performed By: #### C MP, MG, CBC, PT, HS TROP, BNP #### [address] Neutrophils/100 WBC (Bld) 89.8 % Normal . [facility] Comment on above: Performed By: #### C MP, MG, CBC, PT, HS TROP, BNP #### [address] Nucleated RBC/100 WBC (Bld) [Ratio] 0.0 % Normal 0-0.5 [facility] Comment on above: Performed By: #### C MP, MG, CBC, PT, HS TROP, BNP #### [address] Platelet Estimate Normal Normal Normal [facility] Comment on above: Performed By: #### C MP, MG, CBC, PT, HS TROP, BNP #### [address] Platelet mean volume (Bld) [Entitic vol] 8.0 fL Normal 6.6-10.1 [facility] Comment on above: Performed By: #### C MP, MG, CBC, PT, HS TROP, BNP #### [address] Platelet Morphology Normal Normal Normal [facility] Comment on above: Result Comment: PERF ORMED BY: [place] [address] PATHOLOGIST P[employer]OT BOAT CAPTAIN FREDA ALCAZAR M.D. Performed By: #### C MP, MG, CBC, PT, HS TROP, BNP #### [address] Platelets (Bld) [#/Vol] 268 10*3/uL Normal 150-450 [facility] Comment on above: Performed By: #### C MP, MG, CBC, PT, HS TROP, BNP #### [address] RBC (Bld) [#/Vol] 4.64 10*6/uL Normal 3.90-5.[address] [facility] Comment on above: Performed By: #### C MP, MG, CBC, PT, HS TROP, BNP #### [address] RBC morphology finding Nom (Bld) Normal Normal [facility] Comment on above: Performed By: #### C MP, MG, CBC, PT, HS TROP, BNP #### [address] WBC (Bld) [#/Vol] 30.6 10*3/uL High 4.5-11.[address] [facility] Comment on above: Performed By: #### C MP, MG, CBC, PT, HS TROP, BNP #### [address] Arterial Blood Gason --2 021 ABG Base Excess -2.4 mmol/L Normal -3.0-3.0 [facility] Comment on above: Performed By: #### A BG #### Point of Care testing , ABG Frac Inspired O2 50% Normal [facility] Comment on above: Performed By: #### A BG #### Point of Care testing , ABG Oxygen Content 10.0 mmol/L High 6.6-9.[address] [facility] Comment on above: Performed By: #### A BG #### Point of Care testing , ABG Oxygen Saturation 97.1 % Normal 95.0-100.0 [facility] Comment on above: Performed By: #### A BG #### Point of Care testing , ABG PCO2 54.6 mm[Hg] Off scale high 35.0-45.0 [facility] Comment on above: Performed By: #### A BG #### Point of Care testing , ABG PH 7.28 Low 7.35-7.45 [facility] Comment on above: Performed By: #### A BG #### Point of Care testing , ABG PO2 97.4 mm[Hg] Normal 80.0-100.0 [facility] Comment on above: Performed By: #### A BG #### Point of Care testing , CO2 [Moles/Vol] 27.0 mmol/L Normal 23.0-27.0 [facility] Comment on above: Performed By: #### A BG #### Point of Care testing , HCO3 (Bld) [Moles/Vol] 25.3 mmol/L Normal 23.0-29.0 [facility] Comment on above: Performed By: #### A BG #### Point of Care testing , Respiratory Critical [facility] Comment on above: Result Comment: Crit ical Value called on: 02/24/2021 at 17:36 PERFORMED BY: [facility] [address] [place] [address] PATHOLOGIST P[employer]OT [employer]AT CAPTAIN FREDA ALCAZAR M.D. Performed By: #### A BG #### Point of Care testing , VBG Draw Site Right Radial Normal [facility] Comment on above: Performed By: #### A BG #### Point of Care testing , ABG Base Excess 1.5 mmol/L Normal -3.0-3.0 [facility] Comment on above: Performed By: #### A BG #### Point of Care testing , ABG Frac Inspired O2 100 % Normal [facility] Comment on above: Performed By: #### A BG #### Point of Care testing , ABG Oxygen Content 10.2 mmol/L High 6.6-9.[address] [facility] Comment on above: Performed By: #### A BG #### Point of Care testing , ABG Oxygen Saturation 99.6 % Normal 95.0-100.0 [facility] Comment on above: Performed By: #### A BG #### Point of Care testing , ABG PCO2 74.2 mm[Hg] Off scale high 35.0-45.0 [facility] Comment on above: Performed By: #### A BG #### Point of Care testing , ABG PEEP 8 [facility] Comment on above: Performed By: #### A BG #### Point of Care testing , ABG PH 7.25 Low 7.35-7.45 [facility] Comment on above: Performed By: #### A BG #### Point of Care testing , ABG PO2 246.5 mm[Hg] Off scale high 80.0-100.0 [facility] Comment on above: Performed By: #### A BG #### Point of Care testing , ABG Pressure Support 6.0 [facility] Comment on above: Performed By: #### A BG #### Point of Care testing , CO2 [Moles/Vol] 33.8 mmol/L High 23.0-27.0 [facility] Comment on above: Performed By: #### A BG #### Point of Care testing , HCO3 (Bld) [Moles/Vol] 31.5 mmol/L High 23.0-29.0 [facility] Comment on above: Performed By: #### A BG #### Point of Care testing , Respiratory Critical [facility] Comment on above: Result Comment: Crit ical Value called on: 02/24/2021 at 14:54 PERFORMED BY: [address] [place] [address] PATHOLOGIST P[employer]OT BOAT CAPTAIN FREDA ALCAZAR M.D. Performed By: #### A BG #### Point of Care testing , VBG Draw Site Right Radial [facility] Comment on above: Performed By: #### A BG #### Point of Care testing , B-Type Natriuretic Peptideon 02-24-2021 Natriuretic peptide B (Bld) [Mass/Vol] 101.0 pg/mL High 5-100 [facility] Comment on above: Result Comment: PERF ORMED BY: [facility] [address] [place] [address] PATHOLOGIST P[employer]OT BOAT CAPTAIN JIANLAN SUN M.D. Performed By: #### C MP, MG, CBC, PT, HS TROP, BNP #### [facility] [address] BioFire Not Detectedon 02-24 BioFire Not Detected Not detected Normal Not Detecte [facility] Comment on above: Result Comment: This is a duplicate RP2.1 COVID (PCR) result to be used for statistical tracking purpose only. PERFORMED BY: [place] [address] PATHOLOGIST PILOT BOAT CAPTAIN FREDA ALCAZAR M.D. Performed By: #### C MP, MG, CBC, PT, HS TROP, BNP #### [facility] [address] Blood Cultureon 02-24-2021 Bacteria identified Cx Nom (Bld) GRAM STAIN AND BioFire BCID Panel results called at 1332 on 02/25/21 Gram Stain Gram Positive Cocci in Clusters ORGANISM: Staphylococcus sp coag neg (O:STACN) Aerobic MARY Charge (PC45) ----- SUSCEPTIBILITY ---- ORGANISM: O:STACN ANTIBIOTIC INTERPRETATION MARY Amoxacillin/K Clavulanate S <4/2 Ampicillin/Sulbactam S <8/4 Azithromycin S <2 Cefazolin S <8 Ceftriaxone S <8 Ciprofloxacin S <1 Daptomycin S <1 Erythromycin S <0.25 Levofloxacin S <1 Linezolid S <2 Meropenem S <4 Oxacillin S <0.25 Penicillin S <0.03 Piperacillin/Tazobac white S <4 Rifampin S <1 Tetracycline S <4 Trimethoprim/Sulfame thoxazole S 03/04 Vancomycin S 1 GRAM STAIN AND BioFire BCID Panel results called at 1332 on 02/25/21 Acinetobacter baumannii Not detected Staphylococcus aureus Not detected Yasimne albicans Not detected E. Coli Not detected E. cloacae complex Not detected Enterococcus Not detected Enterobacteriaceae Not detected Yasmine glabrata Not detected Haemophilus influenzae Not detected Klebsiella oxytoca Not detected Klebsiella pneumoniae Not detected KPC resistance gene Not Applicable Yasmine krusei Not detected Listeria monocytogenes Not detected mecA resistance gene Not detected Neisseria meningitidis Not detected Yasmine parapsilosis Not detected Streptococcus pneumoniae Not detected Proteus Not detected Pseudomonas aeruginosa Not detected Serratia marcescens Not detected Staphylococcus Detected Streptococcus Not detected S. pyogenes (Group A) Not detected S. agalactiae (Group B) Not detected Yasmine tropicalis Not detected Flor/B resistance gene Not Applicable S = SUSCEPTIBLE I = INTERMEDIATE R = RESISTANT BLANK = DATA NOT AVAILABLE, OR DRUG NOT ADVISABLE OR TESTED R* = RESISTANCE DUE TO EXTENDED SPECTRUM BETA-LACTAMASES ESBL = EXTENDED SPECTRUM BETA-LACTAMASE TFG = THYMIDINE-DEPENDENT STRAIN HAWK = BETA-LACTAMASE POSITIVE IB = INDUCIBLE BETA-LACTAMASE. APPEARS IN PLACE OF 'S' WITH SPECIES KNOWN TO POSSESS INDUCIBLE BETA-LACTAMASES. POTENTIALLY THEY MAY BECOME RESISTANT TO ALL B-LACTAM DRUGS. PERFORMED BY: [place] [address] PATHOLOGIST PILOT BOAT CAPTAIN FREDA ALCAZAR M.D. [facility] Comment on above: Performed By: #### C MP, MG, CBC, PT, HS TROP, BNP #### [facility] [address] [place] [address] Bacteria identified Cx Nom (Bld) NO GROWTH 5 DAYS PERFORMED BY: [place] [address] PATHOLOGIST PILOT BOAT CAPTAIN FREDA ALCAZAR M.D. [facility] Comment on above: Performed By: #### C MP, MG, CBC, PT, HS TROP, BNP #### [facility] [address] [place] [address] COVID-19 Antigenon 1 COVID-19 Antigen Healthcare Worker?: N Shayla Reference Shayla Reference Negative SARS-CoV+SARS-CoV-2 (COVID-19) Ag [Presence] in Respiratory specimen by Rapid immunoassay Negative for SARS Antigen by NARINDER COVID19 Blank Space Shayla Disclaimer Negative results, from patients with symptom Shayla Disclaimer onset beyond five days, should be treated as Shayla Disclaimer presumptive and confirmation with a molecular Shayla Disclaimer assay, if necessary, for patient management, Shayla Disclaimer may be performed. Negative results do not rule Shayla Disclaimer out COVID-19 and should not be used as the sole Shayla Disclaimer basis for treatment or patient management Shayla Disclaimer decisions, including infection control decisions. Shayla Disclaimer Negative results should be considered in the Shayla Disclaimer context of a patient's recent exposures, history Shayla Disclaimer and the presence of clinical signs and symptoms Shayla Disclaimer consistent with COVID-19. COVID19 Blank Space Shayla Disclaimer The Shayla SARS Antigen NARINEDR does not differentiate Shayla Disclaimer between SARS-CoV and SARS-CoV-2. COVID19 Blank Space Shayla Disclaimer This test was developed and its performance Shayla Disclaimer characteristic determined by [employer] and Shayla Disclaimer validated at [facility]. This Shayla Disclaimer test has not been FDA cleared or approved. This Shayla Disclaimer test has been authorized by FDA under an Emergency Use Shayla Disclaimer Authorization (EUA). This test has been validated Shayla Disclaimer in accordance with the FDA's Guidance Document (Policy Shayla Disclaimer for Diagnostics Testing in Laboratories Certified to Shayla Disclaimer Perform High Complexity Testing under CLIA prior to Shayla Disclaimer Emergency Use Authorization for Coronavirus Shayla Disclaimer [email or web address] during the Public Health Emergency) Shayla Disclaimer issued on July 17, 2019. This test is only authorized Shayla Disclaimer for the duration of time the declaration that Shayla Disclaimer circumstances exist justifying the authorization of Shayla Disclaimer the emergency use of in vitro diagnostic tests for Shayla Disclaimer detection of SARS-CoV-2 virus and/or diagnosis of Shayla Disclaimer COVID-19 infection under section 564(b)(1) of the Shayla Disclaimer Act, 21 U.S.C. 360bbb-3(b)(1), unless the Shayla Disclaimer authorization is terminated or revoked sooner. PERFORMED BY: [place] [address] PATHOLOGIST PILOT BOAT CAPTAIN FREDA ALCAZAR M.D. [facility] Comment on above: Performed By: #### S JOSE, COVID-19 SHAYLA #### [address] angio chest PE protocolon 02-24-2021 CT angio chest PE protocol [facility] Main [place] [address] [place] [address] CT Scan Report Signed Patient: Corona Wharton MR#: [id number] 1 : 1945 Acct:[id number] Age/Sex: 75 / M ADM Date: 02/24/21 Loc: Room: [address] [place] [address] Type: ADM IN Attending Dr: Sejal Rausch MD Ordering Provider: Shalonda Ellis DO Date of Service: 02/24/21 CT/CT angio chest PE protocol: f Copies to: DO Sejal Lloyd MD CT PULMONARY ANGIOGRAM WITH CONTRAST CLINICAL HISTORY: Shortness of breath and decreased pulse ox. COMPARISON: 07/13/2015 TECHNIQUE: Spiral images were obtained through the chest following intravenous administration of 71 mL of Isovue-370. Images were reviewed using both narrow and wide window settings. Sagittal, coronal and 3 D volume-rendered reconstructions were performed and reviewed. This CT exam was performed using one or more following dose reduction techniques: Automated exposure control, adjustment of the mA and/or kV according to patient size, or use of iterative reconstruction technique. FINDINGS: The heart is slightly prominent. There is no pericardial effusion. No aortic aneurysm or dissection is seen. There is minor plaque at the aortic arch, descending aorta and proximal great vessels. There is adequate opacification of the pulmonary arteries however there is moderate respiratory motion which limits assessment. No central emboli are identified. No pathologic lymphadenopathy is seen. Endplate spurring is present. There are old rib deformities. The respiratory motion also limits assessment of the lungs. There is bilateral atelectasis, greatest at the lower lobes. No pleural effusion or pneumothorax is seen. Limited cuts through the upper abdomen show no acute findings. CT/CT angio chest PE protocol IMPRESSION: NO CENTRAL EMBOLI HOWEVER EVALUATION IS OTHERWISE LIMITED BY RESPIRATORY MOTION. BILATERAL ATELECTASIS. Impression dictated by: Marlee Odonnell M.D.02/24/2021 7:57 PM Dictation Location: [place] [address] Transcribed By: [facility] 02/24/211956 Dictated By: Marlee Odonnell MD 02/24/211944 Signed By: 02/24/211956 Normal [facility] Complete Blood Count Auto Di ffon 02-24-2021 Basophils (Bld) [#/Vol] 0.1 10*3/uL Normal 0.0-0.2 [facility] Comment on above: Result Comment: PERF ORMED BY: [place] [address] PATHOLOGIST PILOT BOAT CAPTAIN FREDA ALCAZAR M.D. Performed By: #### C MP, MG, CBC, PT, HS TROP, BNP #### [facility] [address] [place] [address] Basophils/100 WBC (Bld) 0.3 % Normal . [facility] Comment on above: Performed By: #### C MP, MG, CBC, PT, HS TROP, BNP #### [facility] [address] [place] [address] Eosinophils (Bld) [#/Vol] 0.1 10*3/uL Normal 0.0-0.45 [facility] Comment on above: Performed By: #### C MP, MG, CBC, PT, HS TROP, BNP #### [facility] [address] [place] [address] [place] Eosinophils/100 WBC (Bld) 0.3 % Normal . [facility] Comment on above: Performed By: #### C MP, MG, CBC, PT, HS TROP, BNP #### [address] Erythrocyte distribution width (RBC) [Ratio] 15.0 % High 12.0-14.8 [facility] Comment on above: Performed By: #### C MP, MG, CBC, PT, HS TROP, BNP #### [address] Hematocrit (Bld) [Volume fraction] 49.0 % Normal 38.8-50.0 [facility] Comment on above: Performed By: #### C MP, MG, CBC, PT, HS TROP, BNP #### [address] Hemoglobin (Bld) [Mass/Vol] 15.5 g/dL Normal 13.0-17.0 [facility] Comment on above: Performed By: #### C MP, MG, CBC, PT, HS TROP, BNP #### [address] Lymphocytes (Bld) [#/Vol] 1.7 10*3/uL Normal 1.00-4.8 [facility] Comment on above: Performed By: #### C MP, MG, CBC, PT, HS TROP, BNP #### [address] Lymphocytes/100 WBC (Bld) 8.1 % Normal . [facility] Comment on above: Performed By: #### C MP, MG, CBC, PT, HS TROP, BNP #### [address] MCH (RBC) [Entitic mass] 30.5 pg Normal 27.5-35.2 [facility] Comment on above: Performed By: #### C MP, MG, CBC, PT, HS TROP, BNP #### [address] MCV (RBC) [Entitic vol] 96.1 fL Normal 83.5-101 [facility] Comment on above: Performed By: #### C MP, MG, CBC, PT, HS TROP, BNP #### [address] Mean Corpuscular HGB Conc 31.7 g/dL Low 32.5-35.6 [facility] Comment on above: Performed By: #### C MP, MG, CBC, PT, HS TROP, BNP #### [address] Monocytes (Bld) [#/Vol] 1.2 10*3/uL High 0.0-0.8 [facility] Comment on above: Performed By: #### C MP, MG, CBC, PT, HS TROP, BNP #### [address] Monocytes/100 WBC (Bld) 5.8 % Normal . [facility] Comment on above: Performed By: #### C MP, MG, CBC, PT, HS TROP, BNP #### [address] Neutrophils (Bld) [#/Vol] 18.3 10*3/uL High 1.8-7.7 [facility] Comment on above: Performed By: #### C MP, MG, CBC, PT, HS TROP, BNP #### [address] Neutrophils/100 WBC (Bld) 85.5 % Normal . [facility] Comment on above: Performed By: #### C MP, MG, CBC, PT, HS TROP, BNP #### [address] Nucleated RBC/100 WBC (Bld) [Ratio] 0.0 % Normal 0-0.5 [facility] Comment on above: Performed By: #### C MP, MG, CBC, PT, HS TROP, BNP #### [address] Platelet mean volume (Bld) [Entitic vol] 7.9 fL Normal 6.6-10.1 [facility] Comment on above: Performed By: #### C MP, MG, CBC, PT, HS TROP, BNP #### [facility] [address] Platelets (Bld) [#/Vol] 337 10*3/uL Normal 150-450 [facility] Comment on above: Performed By: #### C MP, MG, CBC, PT, HS TROP, BNP #### [address] RBC (Bld) [#/Vol] 5.09 10*6/uL Normal 3.90-5.[address] [facility] Comment on above: Performed By: #### C MP, MG, CBC, PT, HS TROP, BNP #### [facility] [address] [place] [address] WBC (Bld) [#/Vol] 21.5 10*3/uL High 4.5-11.[address] [facility] Comment on above: Performed By: #### C MP, MG, CBC, PT, HS TROP, BNP #### [address] Comprehensive Metabolic Pane jeanna 02-24-2021 Albumin [Mass/Vol] 3.6 g/dL Normal 3.2-5.5 [facility] Comment on above: Performed By: #### C MP, MG, CBC, PT, HS TROP, BNP #### [address] Albumin/Globulin [Mass ratio] 0.9 {ratio} Normal [facility] Comment on above: Performed By: #### C MP, MG, CBC, PT, HS TROP, BNP #### [address] ALP [Catalytic activity/Vol] 97 U/L High 32-92 [facility] Comment on above: Performed By: #### C MP, MG, CBC, PT, HS TROP, BNP #### [address] ALT [Catalytic activity/Vol] 18 U/L Normal 10-60 [facility] Comment on above: Performed By: #### C MP, MG, CBC, PT, HS TROP, BNP #### [address] AST [Catalytic activity/Vol] 18 U/L Normal 10-42 [facility] Comment on above: Performed By: #### C MP, MG, CBC, PT, HS TROP, BNP #### [address] Bilirubin [Mass/Vol] 0.7 mg/dL Normal 0.3-1.2 [facility] Comment on above: Performed By: #### C MP, MG, CBC, PT, HS TROP, BNP #### [address] Calcium [Mass/Vol] 9.4 mg/dL Normal 8.2-10.2 [facility] Comment on above: Performed By: #### C MP, MG, CBC, PT, HS TROP, BNP #### [address] Chloride [Moles/Vol] 93 mmol/L Low 95-114 [facility] Comment on above: Performed By: #### C MP, MG, CBC, PT, HS TROP, BNP #### [address] CO2 [Moles/Vol] 31.8 mmol/L High 22.0-30.0 [facility] Comment on above: Performed By: #### C MP, MG, CBC, PT, HS TROP, BNP #### [address] Creatinine [Mass/Vol] 1.16 mg/dL Normal 0.64-1.27 [facility] Comment on above: Performed By: #### C MP, MG, CBC, PT, HS TROP, BNP #### [address] Creatinine Clr Calc Pharmacy 89.20 Normal [facility] Comment on above: Performed By: #### C MP, MG, CBC, PT, HS TROP, BNP #### [address] Estimated GFR ( Nadia > 60 Normal [facility] Comment on above: Result Comment: GFR estimated reference range: According to KDOQI guidelines, <60 ml/min/1.73m2 is sufficient to diagnose a patient with chronic kidney disease. Performed By: #### C MP, MG, CBC, PT, HS TROP, BNP #### [facility] [address] Estimated GFR (Non- Am > 60 Normal [facility] Comment on above: Performed By: #### C MP, MG, CBC, PT, HS TROP, BNP #### [facility] [address] Globulin (S) [Mass/Vol] 4.0 g/dL Normal [facility] Comment on above: Performed By: #### C MP, MG, CBC, PT, HS TROP, BNP #### [address] Glucose [Mass/Vol] 192 mg/dL High 70-100 [facility] Comment on above: Result Comment: [place] Glucose Reference Range is dependent on time and content of last meal. Glucose of more than 200 mg/dL in a nonstressed, ambulatory subject supports the diagnosis of Diabetes Mellitus. ADA recommended reference range Performed By: #### C MP, MG, CBC, PT, HS TROP, BNP #### [facility] [address] Potassium [Moles/Vol] 4.9 mmol/L Normal 3.5-5.1 [facility] Comment on above: Performed By: #### C MP, MG, CBC, PT, HS TROP, BNP #### [facility] [address] [place] [address] [place] Protein [Mass/Vol] 7.6 g/dL Normal 6.1-7.9 [facility] Comment on above: Performed By: #### C MP, MG, CBC, PT, HS TROP, BNP #### [facility] [address] [place] [address] [place] Sodium [Moles/Vol] 136 mmol/L Normal 136-146 [facility] Comment on above: Performed By: #### C MP, MG, CBC, PT, HS TROP, BNP #### [facility] [address] [place] [address] [place] Urea nitrogen [Mass/Vol] 19 mg/dL Normal 01-06 [facility] Comment on above: Performed By: #### C MP, MG, CBC, PT, HS TROP, BNP #### [facility] [address] ECG 12 lead ECGon 02-24-2021 ECG 12 lead ECG [facility] Main [place] [address] [place] [address] Electrocardiograph Report Signed Patient: Corona Wharton MR#: [id number] 1 : 1945 Acct:[id number] Age/Sex: 75 / M ADM Date: 02/24/21 Loc: Room: [address] [place] [address] Type: ADM IN Attending Dr: Sejal Rausch MD Ordering Provider: Shalonda Ellis DO Date of Service: 02/24/2103/06/1448 ECG/ECG 12 lead ECG: DYSPNEA Copies to: Test Reason : Blood Pressure : / mmHG Vent. Rate : 116 BPM Atrial Rate : 116 BPM P-R Int : 174 ms QRS Dur : 096 ms QT Int : 306 ms P-R-T Axes : 060 -65 070 degrees QTc Int : 425 ms Sinus tachycardia Possible Left atrial enlargement Left axis deviation Anterior infarct (cited on or before 08-OCT-2016) Abnormal ECG When compared with ECG of 08-OCT-2016 09:27, Questionable change in initial forces of Septal leads T wave inversion no longer evident in Inferior leads Confirmed by SHALONDA ELLIS DO ([id number]) on 02/24/2021 8:21:23 PM Referred By: Electronically Signed By:SHALONDA ELLIS DO Transcribed By: MUS Signed By Shalonda Ellis DO 02/24 [facility] Glucose Poct Glucometerson 1 04-26-2020 Glucose [Mass/Vol] 258 mg/dL Normal [facility] Comment on above: Result Comment: [place] Glucose Reference Range is dependent on time and content of last meal. Glucose of more than 200 mg/dL in a nonstressed, ambulatory subject supports the diagnosis of Diabetes Mellitus. PERFORMED BY: [facility] [address] [place] [address] PATHOLOGIST PILOT BOAT CAPTAIN FREDA ALCAZAR M.D. Performed By: #### C MP, MG, CBC, PT, HS TROP, BNP #### [facility] [address] [place] [id number] [facility] Lactic Acidon 02-24-2021 Lactate [Moles/Vol] 1.7 mmol/L Normal 0.5-2.[address] [facility] Comment on above: Result Comment: PERF ORMED BY: [place] [address] PATHOLOGIST PILOT BOAT CAPTAIN FREDA ALCAZAR M.D. Performed By: #### C MP, MG, CBC, PT, HS TROP, BNP #### [facility] [address] [place] [id number] [facility] Magnesiumon 02-24-2021 Magnesium [Mass/Vol] 2.3 mg/dL Normal 1.6-2.6 [facility] Comment on above: Result Comment: PERF ORMED BY: [place] [address] PATHOLOGIST PILOT BOAT CAPTAIN FREDA ALCAZAR M.D. Performed By: #### C MP, MG, CBC, PT, HS TROP, BNP #### [place] [id number] [facility] Prothrombin Time INRon 02-24 INR Coag (PPP) [Relative time] 1.0 {INR} Normal [facility] Comment on above: Result Comment: INR Therapeutic Range A) Pre- and Peroperative OAT started two weeks before surgery. NOT HIP SURGERY: 1.5 - 2.5 HIP SURGERY: 2 - 3 B) Primary and secondary prevention of venous THROMBOSIS: 2 - 3 C) Active venous thrombosis, pulmonary embolism and prevention of recurrent venous thrombosis: 2 - 3 D) Prevention of arterial thromboembolism including patients with mechanical heart valves: 3 - 4.5 PERFORMED BY: [place] [address] PATHOLOGIST PILOT BOAT CAPTAIN FREDA ALCAZAR M.D. Performed By: #### C MP, MG, CBC, PT, HS TROP, BNP #### [address] PT Coag (PPP) [Time] 11.3 s Normal 9.0-12.9 [facility] Comment on above: Performed By: #### C MP, MG, CBC, PT, HS TROP, BNP #### [address] Respiratory (Upper) Panel, P CRon 02-24-2021 Respiratory (Upper) Panel, PCR Adenovirus Not detected Bordetella parapertussis Not detected Chlamydia pneumoniae Not detected Coronavirus 229E Not detected Coronavirus HKU1 Not detected Coronavirus NL63 Not detected Coronavirus OC43 Not detected Influenza A Not detected Influenza B Not detected Human Metapneumovirus Not detected Mycoplasma pneumoniae Not detected Parainfluenza Virus 1 Not detected Parainfluenza Virus 2 Not detected Parainfluenza Virus 3 Not detected Parainfluenza Virus 4 Not detected Bordetella pertussis-ptxP Not detected Human Rhino/Enterovirus Not detected Resp. Syncytial Virus Not detected COVID-19 Detected/Not Detected Not detected PERFORMED BY: [place] [address] PATHOLOGIST PILOT BOAT CAPTAIN FREDA ALCAZAR M.D. [facility] Comment on above: Performed By: #### C MP, MG, CBC, PT, HS TROP, BNP #### [address] Shayla Ag Negativeon 02-25-20 21 Shayla Ag Negative Negative Normal Negative [facility] Comment on above: Result Comment: This is a duplicate Shayla SARS Antigen (NARINDER) result to be used for statistical tracking purpose only. PERFORMED BY: [place] [address] PATHOLOGIST PILOT BOAT CAPTAIN FREDA ALCAZAR M.D. Performed By: #### C MP, MG, CBC, PT, HS TROP, BNP #### [address] Troponin I High Sensitivityo n 02-24-2021 Troponin I High Sensitivity 13 pg/mL Normal 0-20 [facility] Comment on above: Result Comment: PERF ORMED BY: [place] [address] PATHOLOGIST PILOT BOAT CAPTAIN FREDA ALCAZAR M.D. Performed By: #### C MP, MG, CBC, PT, HS TROP, BNP #### [address] XR chest 1V portableon 02-24 XR chest 1V portable [facility] Main [place] [address] [place] [address] XRay Report Signed Patient: Corona Wharton MR#: [id number] 1 : 1945 Acct:[id number] Age/Sex: 75 / M ADM Date: 02/24/21 Loc: ER Room: Type: [facility] ER Attending Dr: Ordering Provider: Shalonda Ellis DO Date of Service: 02/24/21 XR/XR chest 1V portable: DYSPNEA Copies to: Shalonda Ellis DO PORTABLE AP ERECT CHEST 1509 hours CLINICAL HISTORY: Shortness of breath and hypoxia COMPARISON: 10/08/2016 There is shallow inspiration and slight elevation the right hemidiaphragm. The cardiac and mediastinal contours are similar. There are continued mild interstitial changes. Subtle groundglass density is noted, greater on the left. This might be soft tissue attenuation related to body habitus however parenchymal change is not excluded. Pleural effusion is not excluded without a lateral view. No pneumothorax is seen. Endplate spurring is present at the spine. There are old left rib fractures. XR/XR chest 1V portable IMPRESSION: CARDIOMEGALY. CONTINUED INTERSTITIAL CHANGES AND QUESTION OF SUBTLE DEVELOPING GROUNDGLASS INFILTRATES. FOLLOW-UP IS SUGGESTED, SYMPTOMS WARRANT. Impression dictated by: Marlee Odonnell M.D.02/24/2021 3:29 PM Dictation Location: [place] [address] Transcribed By: [facility] 02/24/21 1529 Dictated By: Marlee Odonnell MD 02/24/21 1526 Signed By: 02/24/21 1529 Normal [facility] Vital Signs Date Time Vital Sign Value Performing Clinician Facility 07-11-2022 09:31-0400 Diastolic blood pressure 96 mm[Hg] Gerson Sukh [facility] 07-11-2022 09:31-0400 Heart rate 96 /min Gerson Sukh [facility] 07-11-2022 09:31-0400 Heart rate 98 /min Gerson Sukh [facility] 07-11-2022 09:31-0400 Mean blood pressure 112 mm[Hg] Gerson Sukh [facility] 07-11-2022 09:31-0400 Respiratory rate 9 /min Gerson Sukh [facility] 07-11-2022 09:31-0400 Respiratory rate 18 /min Gerson Sukh [facility] 07-11-2022 09:31-0400 SaO2% (BldA) [Mass fraction] 96 % Gerson Sukh [facility] 07-11-2022 09:31-0400 Systolic blood pressure 145 mm[Hg] Gerson Sukh [facility] 07-11-2022 09:00-0400 Heart rate 95 /min Gerson Sukh [facility] 07-11-2022 09:00-0400 Hourly Rounding Gerson Sukh [facility] 07-11-2022 09:00-0400 Respiratory rate 20 /min Gerson Sukh [facility] 07-11-2022 08:26-0400 Diastolic blood pressure 101 mm[Hg] Gerson Sukh [facility] 07-11-2022 08:26-0400 Heart rate 88 /min Gerson Sukh [facility] 07-11-2022 08:26-0400 Respiratory rate 18 /min Gerson Luz [facility] 07-11-2022 08:26-0400 SaO2% (BldA) [Mass fraction] 96 % Gerson Luz [facility] 07-11-2022 08:26-0400 Systolic blood pressure 136 mm[Hg] Gerson Luz [facility] 07-11-2022 08:10-0400 Body temperature 98.06 [degF] Gerson Luz [facility] 07-11-2022 08:10-0400 Respiratory rate 18 /min Gerson Luz [facility] 07-11-2022 08:10-0400 SaO2% (BldA) [Mass fraction] 96 % Gerson Luz [facility] 09-26-2021 15:15-0400 Diastolic blood pressure 81 mm[Hg] [facility] 09-26-2021 15:15-0400 Heart rate 95 /min [facility] 09-26-2021 15:15-0400 Respiratory rate 16 /min [facility] 09-26-2021 15:15-0400 SaO2% (BldA) [Mass fraction] 93 % [facility] 09-26-2021 15:15-0400 Systolic blood pressure 158 mm[Hg] [facility] Encounters Encounter Date Encounter Type Care Provider Facility Start: 07-11-2022 End: 07-11-2022 Emergency department patient [place] Gerson Luz [place] [place] 07-11-2022 End: 07-11-2022 Emergency department patient visit Gerson Luz [facility] Start: 06-20-2022 End: 06-20-[address] IDALMIS SILVA . Facility: Start: 05-05-2022 End: 05-06-[address] CODY AMBRIZ . Facility: Start: 04-18-2022 End: 05-02-2022 ambulatory UNKNOWN PROVIDER Facility:[facility] Start: 09-26-2021 End: 09-28-2021 ambulatory UNKNOWN PROVIDER Facility:[facility] Start: 09-26-2021 End: 09-26-2021 ambulatory [facility] T[facility], Treat and Transport Start: 09-26-2021 End: 09-26-2021 Emergency department patient visit [facility] Emergency Triage, Treat and Transport Comment on above: Arrived Procedures Date Procedure Procedure Detail Performing Clinician Start: 05-01-2017 Injection of therape utic substance into bladder wall Gerson Luz Start: 11-21-2016 Injection of therape utic substance into bladder wall Gerson Luz Start: 08-12-2014 Cystoscopy Gerson joel Start: 08-12-2014 Urodynamic studies Emelina Luz Back structure, excl uding neck (body structure) Gerson Luz Colonoscopy Gerson Luz History of hernia repair Ben Luz Plan of Treatment Date Care Activity Detail Author Start: 06-17-2021 COVID-19 Vaccine (4 - Booster for Moderna series) COVID-19 Vaccine (4 - Booster for Moderna series) [facility] Start: 03-14-2018 Pneumococcal vaccination Pneum ococcal Vaccine(s) (65+ yrs) (2 - PPSV23 or PCV20) [facility] Start: 01-14-2009 Annual wellness visit Annual W ellness Visit (G0438) [facility] Start: 06-08-1996 Measurement of occul t blood in single stool specimen FIT [facility] Start: 06-08-1996 Screening for malign ant neoplasm of colon CRC Screening [facility] Start: 06-08-1996 Shingles (RZV) Vacci ne (1 of 2) Shingles (RZV) Vaccine (1 of 2) [facility] Start: 06-08-1981 [facility]id [facility] Hepatitis C screening Hepatitis C An tibody [facility] Start: 06-08-1964 Tetanus + diphtheria + acellular pertussis vaccine (product) Tdap Booster [facility] Start: 1945 Screening for malign ant neoplasm of colon Colonoscopy [facility] Immunizations Immunization Date Immunization Notes Care Provider Fa janey 01-27-2020 Seasonal trivalent i nfluenza vaccine, adjuvanted, preservative free [facility] 03-14-2017 pneumococcal conjuga te vaccine, 13 valent [facility] 01-25-2017 influenza, high dose seasonal, preservative-free [facility] Payers Date Payer Category Payer Unknown [id number] 2008 Medicare MEDICARE MEDICAR E PART A & B [id number] 2008-Present [address] [place] [address] Medicare [id number] 2008 Medicare [id number] 1945 Unknown [id number] 1945 Unknown [id number] 1945 Unknown [id number] 1945 Unknown [id number] 1945 Unknown [id number] 1945 Unknown [id number] Social History Date Type Detail Facility Tobacco smoking status CAIS Tobacco smoking consumption unknown [facility] Start: 1945 Sex Assigned At [facility] file [facility] Start: 03-03-2019 Tobacco smoking status Never smoked tobacco (finding) [facility] Tobacco smoking status Never [facility] Sex Assigned At Male [facility] Functional Status Date Assessment Result Facility 07-11-2022 Functional Status N/A [facility] Evaluation + Plan note 07-11-2022 Note Date & Type Note Facility 07-11-2022 Evaluation + Plan note Extrac marina from: Title:ED Note Author:Gerson Luz DO Date: Accidental fall (W19.XXXA: U nspecified fall, initial encounter) Closed head injury (S09.90XA: Unspecified injury of head, initial encounter) Facial contusion (S00.83XA: Contusion of other part of head, initial encounter) Orders: CT Head or Brain w/o Contrast CT Maxillofacial w/o Contrast CT Spine Cervical w/o Contrast [facility] Hospital Discharge instructions 07-11-2022 Note Date & Type Note Facility 07-11-2022 Hospital Discharg e instructions Patient Education 07/11/2022 09:33:48 Fall Prevention in Hospitals, Adult Fall Prevention in Hospitals, Adult Being a patient in the hospital puts you at risk for falling. Falls can cause serious injury and harm, but they can be prevented. It is important to understand what puts you at risk for falling and what you and your health care team can do to prevent you from falling. If you or a loved one falls at the hospital, it is important to tell hospital staff about it. What increases the risk for falls? Certain conditions and treatments may increase your risk of falling in the hospital. These include: Being in an unfamiliar environment, especially when using the bathroom at night. Having surgery. Being on bed rest. Taking many medicines or certain types of medicines, such as sleeping pills. Having tubes in place, such as IV lines or catheters. Other risk factors for falls in a hospital include: Having difficulty with hearing or vision. Having a change in thinking or behavior, such as confusion. Having depression. Having trouble with balance. Being a male. Feeling dizzy. Needing to use the toilet frequently. Having fallen during the past three months. Having low blood pressure. What are some strategies for preventing falls? If you or a loved one has to stay in the hospital: Ask about which fall prevention strategies will be in place. Do not hesitate to speak up if you notice that the fall prevention plan has changed. Ask for help moving around, especially after surgery or when feeling unwell. If you have been asked to call for help when getting up, do not get up by yourself. Asking for help with getting up is for your safety, and the staff is there to help you. Wear nonskid footwear. Get up slowly, and sit at the side of the bed for a few minutes before standing up. Keep items you need, such as the nurse call button or a phone, close to you so that you do not need to reach for them. Wear eyeglasses or hearing aids if you have them. Have someone stay in the hospital with you or your loved one. Ask if sleeping pills or other medicines that can cause confusion are necessary. What does the hospital staff do to help prevent falls? Hospitals have systems in place to prevent falls and accidents, which may involve: Discussing your fall risks and making a personalized fall prevention plan. Checking in regularly to see if you need help. Placing an arm band on your wrist or a sign near your room to alert other staff of your needs. Using an alarm on your hospital bed. This is an alarm that goes off if you get out of bed and forget to call for help. Keeping the bed in a low and locked position. Keeping the area around the bed and bathroom well-lit and free from clutter. Keeping your room quiet, so that you can sleep and be well-rested. Using safety equipment, such as: ?A belt around your waist. ?Walkers, crutches, and other devices for support. ?Safety beds, such as low beds or cushions on the floor next to the bed. Having a staff person stay with you (one-on-one observation), even when you are using the bathroom. This is for your safety. Using video monitoring. This allows a staff member to come to help you if you need help. What other actions can I take to lower my risk of falls? Check in regularly with your health care provider or pharmacist to review all of the medicines that you take. Make sure that you have a regular exercise program to stay fit. This will help you maintain your balance. Talk with a physical therapist or market development trainer if recommended by your health care provider. They can help you to improve your strength, balance, and endurance. If you are over age 65: ?Ask your health care provider if you need a calcium or vitamin D supplement. ?Have your eyes and hearing checked every year. ?Have your feet checked every year. Where to find more information You can find more information about fall prevention from the Centers for Disease Control and Prevention: www.cdc.gov/steadi Summary Being in an unfamiliar environment, such as the hospital, increases your risk for falling. If you have been asked to call for help when getting up, do not get up by yourself. Asking for help with getting up is for your safety, and the staff is there to help you. Ask about which fall prevention strategies will be in place. Do not hesitate to speak up if you notice that the fall prevention plan has changed. If you or a loved one falls, tell the hospital staff. This is important. This information is not intended to replace advice given to you by your health care provider. Make sure you discuss any questions you have with your health care provider. Document Released: 03/30/2001 Document Revised: 03/15/2018 Document Reviewed: 11/14/2017 [employer] Patient Education 2020 [employer] 07/11/2022 09:33:48 Head Injury, Adult Head Injury, Adult There are many types of head injuries. Head injuries can be as minor as a bump, or they can be a serious medical issue. More severe head injuries include: A jarring injury to the brain (concussion). A bruise (contusion) of the brain. This means there is bleeding in the brain that can cause swelling. A cracked skull (skull fracture). Bleeding in the brain that collects, clots, and forms a bump (hematoma). After a head injury, most problems occur within the first 24 hours, but side effects may occur up to 7 10 days after the injury. It is important to watch your condition for any changes. You may need to be observed in the emergency department or urgent care, or you may be admitted to the hospital. What are the causes? There are many possible causes of a head injury. A serious head injury may be caused by a car accident, bicycle or motorcycle accidents, sports injuries, and falls. What are the symptoms? Symptoms of a head injury include a contusion, bump, or bleeding at the site of the injury. Other physical symptoms may include: Headache. Nausea or vomiting. Dizziness. Feeling tired. Being uncomfortable around bright lights or loud noises. Seizures. Trouble being awakened. Fainting. Mental or emotional symptoms may include: Irritability. Confusion and memory problems. Poor attention and concentration. Changes in eating or sleeping habits. Anxiety or depression. How is this diagnosed? This condition can usually be diagnosed based on your symptoms, a description of the injury, and a physical exam. You may also have imaging tests done, such as a CT scan or MRI. How is this treated? Treatment for this condition depends on the severity and type of injury you have. The main goal of treatment is to prevent complications and to allow the brain time to heal. Mild head injury If you have a mild head injury, you may be sent home and treatment may include: Observation. A responsible adult should stay with you for 24 hours after your injury and check on you often. Physical rest. Brain rest. Pain medicines. Severe head injury If you have a severe head injury, treatment may include: Close observation. This includes hospitalization with frequent physical exams. Medicines to relieve pain, prevent seizures, and decrease brain swelling. Breathing support. This may include using a ventilator. Treatments to manage the swelling inside the brain. Brain surgery. This may be needed to: ?Remove a blood clot. ?Stop the bleeding. ?Remove a part of the skull to allow room for the brain to swell. Follow these instructions at home: Activity Rest and avoid activities that are physically hard or tiring. Make sure you get enough sleep. Limit activities that require a lot of thought or attention, such as: ?Watching TV. ?Playing memory games and puzzles. ?Job-related work or homework. ?Working on the computer, using social media, and texting. Avoid activities that could cause another head injury, such as playing sports, until your health care provider approves. Having another head injury, especially before the first one has healed, can be dangerous. Ask your health care provider when it is safe for you to return to your regular activities, including work or school. Ask your health care provider for a zbtu-vb-sbyy plan for gradually returning to activities. Ask your health care provider when you can drive, ride a bicycle, or use heavy machinery. Your ability to react may be slower after a brain injury. Do not do these activities if you are dizzy. Lifestyle Do not drink alcohol until your health care provider approves. Do not use drugs. Alcohol and certain drugs may slow your recovery and can put you at risk of further injury. If it is harder than usual to remember things, write them down. If you are easily distracted, try to do one thing at a time. Talk with family members or close friends when making important decisions. Tell your friends, family, a trusted colleague, and c iron worker about your injury, symptoms, and restrictions. Have them watch for any new or worsening problems. General instructions Take mujv-lds-pebfsjh and prescription medicines only as told by your health care provider. Have someone stay with you for 24 hours after your head injury. This person should watch you for any changes in your symptoms and be ready to seek medical help. Keep all follow-up visits as told by your health care provider. This is important. How is this prevented? Work on improving your balance and strength to avoid falls. Wear a seatbelt when you are in a moving vehicle. Wear a helmet when riding a bicycle, skiing, or doing any other sport or activity that has a risk of injury. If you drink alcohol: ?Limit how much you use to: ?0 1 drink a day for women. ?0 2 drinks a day for men. ?Be aware of how much alcohol is in your drink. In the [place] one drink equals one 12 oz bottle of beer (355 mL), one 5 oz glass of wine (148 mL), or one 1 oz glass of hard liquor (44 mL). Take safety measures in your home, such as: ?Removing clutter and tripping hazards from floors and stairways. ?Using grab bars in bathrooms and handrails by stairs. ?Placing non-slip mats on floors and in bathtubs. ?Improving lighting in dim areas. Get help right away if: You have: ?A severe headache that is not helped by medicine. ?Trouble walking or weakness in your arms and legs. ?Clear or bloody fluid coming from your nose or ears. ?Changes in your vision. ?A seizure. You lose your balance. You vomit. Your pupils change size. Your speech is slurred. Your dizziness gets worse. You faint. You are sleepier than normal and have trouble staying awake. Your symptoms get worse. These symptoms may represent a serious problem that is an emergency. Do not wait to see if the symptoms will go away. Get medical help right away. Call your local emergency services (911 in the [place] Do not drive yourself to the hospital. Summary Head injuries can be minor or they can be a serious medical issue requiring immediate attention. Treatment for this condition depends on the severity and type of injury you have. Ask your health care provider when it is safe for you to return to your regular activities, including work or school. Head injury prevention includes wearing a seat belt in a motor vehicle, using a helmet on a bicycle, limiting alcohol use, and taking safety measures in your home. This information is not intended to replace advice given to you by your health care provider. Make sure you discuss any questions you have with your health care provider. Document Released: 04/02/2006 Document Revised: 04/30/2019 Document Reviewed: 04/25/2019 [employer] Patient Education 2020 [employer] 07/11/2022 09:33:48 Facial or Scalp Contusion Facial or Scalp Contusion A facial or scalp contusion is a deep bruise (contusion) on the face or head. Injuries to the face and head generally cause a lot of swelling, especially around the eyes. Contusions are the result of an injury that caused bleeding under the skin. The contusion may turn blue, purple, or yellow. Minor injuries will give you a painless contusion, but more severe contusions may stay painful and swollen for a few weeks. What are the causes? A facial or scalp contusion is caused by a blunt injury, fall, or trauma to the face or head area. What are the signs or symptoms? Symptoms of this condition include: Swelling of the injured area. Discoloration of the injured area. Tenderness, soreness, or pain in the injured area. How is this diagnosed? This condition is diagnosed based on your medical history and a physical exam. An X-ray exam, CT scan, or MRI may be needed to check for any additional injuries, such as broken bones (fractures). How is this treated? Often, the best treatment for a facial or scalp contusion is applying cold compresses to the injured area. Ejcr-dng-anpbgjn medicines may also be recommended for pain control. Follow these instructions at home: Take emyb-fkp-yxizmke and prescription medicines only as told by your health care provider. If directed, apply ice to the injured area. ?Put ice in a plastic bag. ?Place a towel between your skin and the bag. ?Leave the ice on for 20 minutes, 2 3 times a day. Keep all follow-up visits as told by your health care provider. This is important. Contact a health care provider if: You have trouble biting or chewing. Your pain or swelling gets worse. You have pain when you move your eyes. Get help right away if: You have severe pain or a headache that is not relieved by medicine. You have unusual sleepiness, confusion, or personality changes. You vomit. You have a nosebleed that does not stop. You have double vision or blurred vision. You have a continuous clear fluid draining from your nose or ear. You have trouble walking or using your arms or legs. You have severe dizziness. Summary A facial or scalp contusion is a deep bruise (contusion) on the face or head. Contusions are the result of an injury that caused bleeding under the skin. Minor injuries will give you a painless contusion, but more severe contusions may stay painful and swollen for a few weeks. Often, the best treatment for a facial or scalp contusion is applying cold compresses to the injured area. This information is not intended to replace advice given to you by your health care provider. Make sure you discuss any questions you have with your health care provider. Document Released: 05/10/2005 Document Revised: 03/15/2018 Document Reviewed: 02/20/2017 [employer] Patient Education 2020 [employer] Follow Up Care 07/11/2022 08:10:05 With:Idalmis Silva Address: [address] [place] [phone] Business (1) When:07/14/2022 09:33:22 Comments:Call the office of your primary care doctor to arrange for follow-up within the above-stated timeframe. Follow-up with your primary care doctor about this ED visit. You should review your labs, imaging, and diagnoses from this ED visit with your primary care physician. There are occasionally non-emergent findings that require additional follow-up after your ED visit. If you were prescribed medications you should discuss possible side-effects and drug interactions with your pharmacist. Call 911 or go to the nearest Emergency Department if you develop any new or worsening symptoms.Seek immediate medical attention if you develop: new or worsening headache, nausea, vomiting, confusion, weakness, loss of motion in your arms or legs, loss of control of your urine or stool, difficulty waking from sleep, or any new or worsening symptoms. [facility] History of Present illness Narrative 09-26-2021 Pelon Hawthorne MD - 09/26/2021 3:30 PM EDT Note Date & Type Note Facility 09-26-2021 History of Presen t illness Narrative Images from the original note were not included. EMERGENCY TRIAGE, TREAT AND TRANSPORT (ET3) DOCUMENTATION OF TELEHEALTH VISIT Date / Time: 09/26/2021 / 1515 Name: Corona Wharton : 1945 SSN: [id number] EMS Agency: [facility] [x] Verbal consent obtained [] Implied consent - patient with potential emergency medical condition requiring assessment of capacity to refuse treatment and/or transport VITAL SIGNS: see flowsheet documentation Reason for Telehealth Visit: Chief Complaint Patient presents with Fall History of Present Ilness: Pleasant 76yo male, remote hx of stroke, no use of left leg. Pt slid from chair to ground. No c/o pain. Needed help getting back up. No LOC. Denies hitting head. present and st pt is acting his normal self with no change in activity or speech. No headache, no neck/back pain, no chest/abd pain. No n/v. No dyspnea. Pt has chronic back pain but no change in that since fall. No new leg or arm weakness since fall. Additional pertinent PMHx, SocHx, FamHx: Lives with . Uses power wheelchair for movement. pmhx cva, htn. Review of Systems: Denies the following: Please see HPI. No fever. Exam: General: Awake, no distress ENT: normocephalic, atraumatic Pulmonary: No respiratory distress Cardiovascular: Well perfused Neurologic: Oriented to person, place, time and events. Moving all extremities equally. Psychiatric: Appropriate. Good insight and judgement. Back. No midline c/t/l pain on palpation per ems. Ext: 2x2cm superficial abrasion to left forearm. Medical Decision Making: Pleasant 76yo male who slipped from chair needing lift assist. Only injury is small arm abrasion. EMS will clean and dress wound. Pt helped back into chair. Has his normal support at home. Pt has no further request or questions. Crew with no further questions. Pt to f/u with his PCP. Disposition Supported by Telehealth Assessment: ET3 transport decisions: Treat in place EMS Disposition Reported: Same ET3 Encounter Completed by: Pelon Hawthorne MD [facility] Evaluation note Note Date & Type Note Facility Evaluation note Diagnosis Fall, initial encounter- Primary Superficial abrasion Abrasion or friction burn of other, multiple, and unspecified sites, without mention of infection documented in this encounter [facility] Hospital course Narrative Note Date & Type Note Facility Hospital course Narrative No data available for this section [facility] Progress note Note Date & Type Note Facility Progress note No data available for this section [facility] Summary Purpose Family History No Family History Records FoundNo Family History Records FoundNo Family History Records FoundNo Family History Records Found Advance Directives No Advanced Directives Records FoundNo Advanced Directives Records FoundNo Advanced Directives Records FoundNo Advanced Directives Records Found Additional Source Comments (unrecognized sect ion and content) No Status Records FoundNo Status Records FoundNo Status Records FoundNo Status Records Found INFORMATION SOURCE (unrecogn ized section and content) DATE CREATED AUTHOR 05/27/2021 [facility] DATE CREATED AUTHOR AUTHOR'S ORGANIZ ATION 05/03/2022 [facility] DATE CREATED AUTHOR AUTHOR'S ORGANIZ ATION 06/22/2022 [facility] DATE CREATED AUTHOR AUTHOR'S ORGANIZ ATION 08/09/2022 [facility] Reason for Visit (unrecogniz ed section and content) Reason Comments Fall Patient Care team informatio n (unrecognized section and content) Personnel Name: Idalmis Silva MD Address: Address: [address] [place] [address] FOR RECORDS PERTAINING TO PATIENTS WHO ARE OR HAVE BEEN ENROLLED IN A CHEMICAL DEPENDENCY/SUBSTANCEABUSE PROGRAM, SOME INFORMATION MAY BE OMITTED. This clinical summary was aggregated from multiple sources. Caution should be exercised in using it in the provision of clinical care. This summary normalizes information from multiple sources, and as a consequence, information in this document may materially change the coding, format and clinical context of patient data. In addition, data may be omitted in some cases. CLINICAL DECISIONS SHOULD BE BASED ON THE PRIMARY CLINICAL RECORDS. [facility] [employer] [facility]. provides no warranty or guarantee of the accuracy or completeness of information in this document.
== END 2023-06-15 10:45 | disposition home or self-care (01) ==
LOC: WC 10:44
PROVIDERS: PCP Family Medicine; Visit Provider Physician Assistant
DX: E11.621 Type 2 diabetes mellitus with foot ulcer (principal); L97.422 Non-pressure chronic ulcer of left heel and midfoot with fat layer exposed; L97.322 Non-pressure chronic ulcer of left ankle with fat layer exposed
CPT/HCPCS: 11042; G0463

== ENCOUNTER 2023-07-10 16:03 | Outpatient (OUT) | payer OTHER, SELFPAY | END 2023-07-10 16:04 | disposition home or self-care (01) | LOC: WC 16:03 | PROVIDERS: PCP Family Medicine; Visit Provider Podiatrist Foot & Ankle Surgery | DX: E11.622 Type 2 diabetes mellitus with other skin ulcer (principal); L97.322 Non-pressure chronic ulcer of left ankle with fat layer exposed; E11.621 Type 2 diabetes mellitus with foot ulcer; L97.422 Non-pressure chronic ulcer of left heel and midfoot with fat layer exposed; I87.311 Chronic venous hypertension (idiopathic) with ulcer of right lower extremity; L97.811 Non-pressure chronic ulcer of other part of right lower leg limited to breakdown of skin; R60.1 Generalized edema | CPT/HCPCS: 11042 ==

== ENCOUNTER 2023-07-27 08:46 | Outpatient (REF) | payer OTHER, SELFPAY ==
[2023-07-27 09:15] LABS: Alanine Aminotransferase 15 U/L (16-63); Albumin Globulin Ratio 0.4; Albumin Level 2.2 g/dL (3.4-5.0); Alkaline Phosphatase 91 U/L (46-116); Anion Gap 11.9; Aspartate Amino Transferase 16 U/L (15-37); BUN Creatinine Ratio 12.1; Bilirubin Total 0.4 mg/dL (0.2-1.0); Calcium 9.7 mg/dL (8.5-10.1); Carbon Dioxide 31.2 mmol/L (21.0-32.0); Chloride 103 mmol/L (98-107); Estimated GFR (African America 55 (>=60); Estimated GFR (Non-African Ame 46 (>=60); Globulin 4.9 g/dL; Glucose 150 mg/dL (74-106); Potassium 4.1 mmol/L (3.5-5.1); Sodium 142 mmol/L (136-145); Total Protein 7.1 g/dL (6.4-8.2)
[2023-07-27 09:16] LABS: Basophils Absolute Auto 0.1 10^3/uL (0.0-0.1); Basophils Percent Auto 0.7 % (0.2-2.0); Eosinophils Absolute Auto 0.3 10^3/uL (0.0-0.7); Eosinophils Percent Auto 2.6 % (0.9-7.0); Hematocrit 47.3 % (42.0-54.0); Hemoglobin 13.2 g/dL (14.0-18.0); Immature Granulocytes Abs Auto 0.08 10^3/uL (0.00-0.03); Immature Granulocytes Pct Auto 0.7 % (0.0-0.5); Lymphocytes Absolute Auto 1.5 10^3/uL (1.2-3.8); Lymphocytes Percent Auto 12.7 % (20.5-60.0); Mean Corpuscular HGB Conc 27.9 g/dL (29.9-35.2); Mean Corpuscular Hemoglobin 25.9 pg (25.9-34.0); Mean Corpuscular Volume 92.9 fL (80.0-94.0); Mean Platelet Volume 10.1 fL (9.5-13.5); Monocytes Percent Auto 8.6 % (1.7-12.0); Neutrophils Absolute Auto 8.7 10^3/uL (1.4-6.5); Neutrophils Percent Auto 74.7 % (43.0-75.0); Platelet Count 323 10^3/uL (150-450); Red Blood Count 5.09 10^6/uL (4.70-6.10); Red Cell Distribution Width 14.5 % (11.0-15.0); White Blood Count 11.7 10^3/uL (4.0-11.0)
== END 2023-07-27 08:47 | disposition home or self-care (01) ==
LOC: LAB 08:46
PROVIDERS: PCP Family Medicine; Visit Provider Family Medicine
DX: I69.354 Hemiplegia and hemiparesis following cerebral infarction affecting left non-dominant side (principal)
CPT/HCPCS: 36415; 80053; 85025

== ENCOUNTER 2023-07-30 04:55 | Outpatient (REF) | payer OTHER, SELFPAY ==
--- OUTSIDE RECORDS SUMMARY | 2023-07-30 05:01 | XMS_ITS | CCD ---
Author Organization [facility] Care Team Providers Care Coal Bagger Name Role Phone Unavailable Primary Care Provider Unavailabl e PROVIDER, UNKNOWN Admitting Unavailable PROVIDER, UNKNOWN Attending Unavailable PROVIDER, UNKNOWN Admitting Unavailable PROVIDER, UNKNOWN Attending Unavailable LIMA ., DR RAYGOZA Primary Care Unavailable HAY ., DR ROSS Admitting Unavailable HAY ., DR ROSS Attending Unavailable LANA, DR GRAHAM Cabrera Consulting Unavailable HAY ., DR ROSS Consulting Unavailable EUGENOI HOUGH Consulting Unavailable HAY ., DR ROSS Admitting Unavailable HAY ., DR ROSS Attending Unavailable LIMA ., DR RAYGOZA Primary Care Unavailable PB ., DR ROSS Consulting Unavailable BALBINA FRIAS Consulting Unavailable RADHA CONNELLY Consulting Unavailable LIMA ., DR RAYGOZA Admitting Unavailable HORoss ., DR RAYGOZA Attending Unavailable LIMA ., DR RAYGOZA Primary Care Unavailable Idalmis Silva Primary Care Physician [phone] Gerson Luz Attending Unavailable MD Idalmis Silva Primary Care Provider [phone] DO Rubén Cardoso Emergency Provider [phone] DO Balbina Garzon Admit Provider [phone] DO Balbina Garzon Attending Provider [phone] DO Luigi Napoles Attending Provider [phone] DO Matthew Bean Other Provider MD Brenda Zheng Other Provider Luigi Napoles Attending Unavailable Balbina Garzon Admitting Unavailable Idalmis Silva Primary Care Unavailable Matthew Bean Consulting Unavailable Brenda Zheng Consulting Unavailable Allergies Allergy Classification Reported Allergen(s) Allergy Type Date of Onset Reaction(s) Facility (1 source) Allopurinol Drug Allergy [facility] Repository (1 source) No Known Medication Allergies; Translations: [No Known Medication Allergies] Propensity to adverse reactions (disorder) [facility] Repository (3 sources) Azithromycin; Translations: [azithromycin] Drug Allergy [facility] (3 sources) cefTRIAXone; Translations: [ceftriaxone] Drug Allergy [facility] Medications Current Medications Medication Drug Class(es) Dates Sig (Normalized) Sig (Original) aspirin 81 mg oral tablet (1 source) Platelet Aggregation Inhibitor, Nonsteroidal Anti-inflammatory Drug Start: 03-03-2019 take 1 mg by mouth once daily aspirin 81 mg oral tablet mg tab(s), Oral, Daily, Refills(s) 0 Start Date: 03/03/19 Status: Ordered Lipitor (3 sources) HMG-CoA Reductase Inhibitor Start: 03-03-2019 Lipitor Oral, Daily, Refills(s) 0 Start Date: 03/03/19 Status: Ordered Start: 01-05-2019 End: 07-20-2023 take 20 mg by mouth once daily Atorvastatin Discontinu ed 20 MG PO Daily January 05, 2019 12:00am July 20, 2023 2:29pm clopidogrel 75 mg oral tablet (4 sources) [id number] Platelet Inhibitor Start: 07-25-2023 take 75 mg by mouth once daily Clopidogrel Active 75 MG PO Daily 0 July 25, 2023 12:00am Start: 03-03-2019 Plavix Oral, R efills(s) 0 Start Date: 03/03/19 Status: Ordered Start: 01-05-2019 End: 07-20-2023 take 1 tablet by mouth once daily Clopidogrel (Plavix) 75 mg Tablet Discontinued 75 MG PO Daily January 05, 2019 12:00am July 20, 2023 2:29pm doxycycline hyclate 100 mg oral capsule (1 source) Tetracycline-class Drug Start: 07-25-2023 take 100 mg by mouth twice daily Doxycycline Hyclate Active 100 MG PO Twice daily 01 18July 25, 2023 12:00am Amaryl (3 sources) Sulfonylurea Start: 03-03-2019 Amaryl Oral, Daily, Refills(s) 0 Start Date: 03/03/19 Status: Ordered Start: 01-05-2019 End: 07-20-2023 take 4 mg by mouth once daily before breakfast Glimepiride Discontinued 4 MG PO Daily before breakfast January 05, 2019 12:00am July 20, 2023 2:29pm 3 ml insulin glargine 100 unt/ml pen injector (1 source) Insulin Analog Start: 07-20-2023 Insulin Glargi ne (Lantus Solostar U-100 Insulin) 100 unit/mL (3 mL) insulin pen Active 20 UNIT SUBCUT Daily July 20, 2023 12:00am 3 ml insulin isophane, human 100 unt/ml pen injector (2 sources) Start: 07-20-2023 Insulin Nph Is oph U-100 Human (Novolin N Flexpen) 100 unit/mL (3 mL) insulin pen Active 12 UNIT SUBCUT Every morning July 20, 2023 12:00am Start: 07-20-2023 inject 8 [IU] by sub cutaneous injection once daily in the evening Insulin Nph Isoph U-100 Human (Novolin N Flexpen) 100 unit/mL (3 mL) insulin pen Active 8 UNIT SUBCUT Every evening July 20, 2023 12:00am latanoprost 0.05 mg/ml ophthalmic solution (2 sources) Prostaglandin Analog Start: 02-25-2021 take 1 drop(s) into the eye(s) once daily at bedtime Latanoprost Active 1 DROPS EYE-BOTH Daily at bedtime February 25, 2021 1:00am levothyroxine sodium 0.1 mg oral tablet (4 sources) l-Thyroxine Start: 07-20-2023 take 100 ug by mouth once daily Levothyroxine Active 100 MCG PO Daily July 20, 2023 12:00am Start: 02-25-2021 End: 07-25-2023 take 100 ug by mouth once daily Levothyroxine Discontinued 100 MCG PO Daily February 25, 2021 1:00am July 25, 2023 12:26pm Start: 02-25-2021 take 75 ug by mouth once daily Levothyroxine Active 75 MCG PO Daily February 25, 2021 1:00am Start: 03-03-2019 Synthroid Oral , Daily, Refills(s) 0 Start Date: 03/03/19 Status: Ordered metFORMIN (3 sources) Biguanide Start: 03-03-2019 metformin Oral , Refills(s) 0 Start Date: 03/03/19 Status: Ordered Start: 01-05-2019 End: 07-20-2023 take 500 mg by mouth twice daily Metformin Discontinued 500 MG PO Twice daily January 05, 2019 12:00am July 20, 2023 2:29pm pantoprazole 40 mg delayed release oral tablet (1 source) Proton Pump Inhibitor Start: 07-20-2023 take 40 mg by mouth once daily Pantoprazole Active 40 MG PO Daily July 20, 2023 12:00am polyethylene glycol 3350 45094 mg powder for oral solution (1 source) Osmotic Laxative Start: 07-25-2023 Polyethylene Glycol 3350 (Healthylax) 17 gram Powder In Packet Active 17 GM PO Daily 0 July 25, 2023 12:00am Ramipril (3 sources) Angiotensin Converting Enzyme Inhibitor Start: 03-03-2019 ramipril Oral, Daily, Refills(s) 0 Start Date: 03/03/19 Status: Ordered Start: 01-05-2019 End: 07-20-2023 take 5 mg by mouth once daily Ramipril Discontinued 5 MG PO Daily January 05, 2019 12:00am July 20, 2023 2:29pm Sennosides (Senna Laxative) 8.6 mg Tablet (1 source) Start: 07-25-2023 take 1 tablet by mouth once daily at bedtime Sennosides (Senna Laxative) 8.6 mg Tablet Active 8.6 MG PO Daily at bedtime 0 July 25, 2023 12:00am tamsulosin hydrochloride 0.4 mg oral capsule (5 sources) alpha-Adrenergi c Oneil Start: 07-20-2023 take 0.4 mg by mouth once daily Tamsulosin Active 0.4 MG PO Daily July 20, 2023 12:00am Start: 01-05-2019 End: 02-25-2021 take 0.4 mg by mouth once daily Tamsulosin Active 0.4 MG PO Daily February 25, 2021 1:00am Timolol Maleate (2 sources) beta-Adrenergic Oneil Start: 07-20-2023 take 1 drop(s) into the eye(s) once daily in the morning Timolol Maleate Active 1 DROPS EYE-BOTH Every morning July 20, 2023 12:00am Start: 01-05-2019 take 1 drop(s) into the eye(s) once daily Timolol Active 1 DROPS EYE-BOTH Daily at 0800 January 05, 2019 12:00am 24 hr venlafaxine 150 mg extended release oral capsule (5 sources) Serotonin and Norepinephrine Reuptake Inhibitor Start: 02-25-2021 take 150 mg by mouth once daily Venlafaxine Active 150 MG PO Daily February 25, 2021 1:00am Start: 03-03-2019 Effexor XR Ora l, Daily, Refills(s) 0 Start Date: 03/03/19 Status: Ordered Start: 01-05-2019 End: 02-25-2021 take 75 mg by mouth once daily Venlafaxine Discontinue d 75 MG PO Daily January 05, 2019 12:00am February 25, 2021 11:12am Completed/Discontinued Medications Medication Drug Class(es) Dates Sig (Normalized) Sig (Original) acetaminophen 325 mg / HYDROcodone bitartrate 5 mg oral tablet (2 sources) Opioid Agonist Start: 01-05-2019 End: 02-25-2021 take 1 tablet by mouth every four to six hours Hydrocodone-Acetam inophen (Zephyr) 5-325 mg tablet Discontinued 1 TAB PO EVERY 4-6 HOURS 10 January 05, 2019 February 25, 2021 11:15am apixaban 2.5 mg oral tablet (1 source) Factor Xa Inhibitor Start: 07-20-2023 End: 07-25-2023 take 1 tablet by mouth twice daily Apixaban (Eliquis) 2.5 mg tablet Discontinued 2.5 MG PO Twice daily July 20, 2023 12:00am July 25, 2023 12:26pm ARIPiprazole 2 mg oral tablet (1 source) Atypical Antipsychotic Start: 07-20-2023 End: 07-25-2023 take 2 mg by mouth once daily Aripiprazole Discontinued 2 MG PO Daily July 20, 2023 12:00am July 25, 2023 12:26pm collagenase 0.25 unt/mg topical ointment (1 source) Collagen-specific Enzyme Start: 07-20-2023 End: 07-25-2023 Collagenase Clostridium Histo. (Santyl) 250 unit/gram ointment Discontinued 1 APPLIC TOPICAL Three times daily July 20, 2023 12:00am July 25, 2023 12:26pm furosemide 20 mg oral tablet (2 sources) Loop Diuretic Start: 02-25-2021 End: 07-20-2023 take 20 mg by mouth once daily Furosemide Discontinued 20 MG PO Daily February 25, 2021 1:00am July 20, 2023 2:29pm pioglitazone 30 mg oral tablet (2 sources) Peroxisome Proliferator Receptor alpha Agonist, Peroxisome Proliferator Receptor gamma Agonist, Thiazolidinedione Start: 02-25-2021 End: 07-20-2023 take 30 mg by mouth once daily Pioglitazone Discontinued 30 MG PO Daily February 25, 2021 1:00am July 20, 2023 2:29pm spironolactone 25 mg oral tablet (4 sources) Aldosterone Antagonist Start: 02-25-2021 End: 07-20-2023 take 25 mg by mouth once daily Spironolactone Discontinued 25 MG PO Daily February 25, 2021 1:00am July 20, 2023 2:30pm Start: 02-25-2021 End: 02-25-2021 Spironolactone Discontinued MG TABLET February 25, 2021 1:00am February 25, 2021 2:39pm traMADol hydrochloride 50 mg oral tablet (2 sources) Opioid Agonist Start: 03-02-2021 End: 07-20-2023 take 50 mg by mouth every eight hours Tramadol Discontinued 50 MG PO Q8H 10 3 March 02, 2021 1:00am July 20, 2023 2:30pm Problems Active Problems Problem Classification Problem Date Documented Da te Episodic/Chronic Acute cerebrovascular disease (1 source) Cerebrovascular accident 03-03-2019 Chronic Anxiety disorders (1 source) Anxiety disorder, unspecified; Translations: [ANXIETY DISORDER UNSPECIFIED] Onset: 06-21-2022 Chronic Chronic obstructive pulmonary disease and bronchiectasis (1 source) Chronic obstructive pulmonary disease, unspecified; Translations: [COPD UNSPECIFIED] Onset: 06-21-2022 Chronic Diabetes mellitus without complication (2 sources) Type 2 diabetes mellitus without complications; Translations: [Diabetes mellitus] Onset: 06-21-2022 03-03-2019 Chronic Diseases of white blood cells (3 sources) Leukocytosis; Translations: [Elevated white blood cell count, unspecified] Onset: 07-19-2023 07-20-2023 Chronic Disorders of lipid metabolism (2 sources) [...] 03-03-2019 Chronic Late effects of cerebrovascular disease (4 sources) Hemiplegia and hemiparesis following cerebral infarction affecting left non-dominant side; Translations: [Hemiparesis as late effect of cerebrovascular accident] Onset: 06-21-2022 07-20-2023 Chronic Malaise and fatigue (3 sources) Asthenia; Translations: [Weakness] Onset: 07-19-2023 07-20-2023 Episodic Menopausal disorders (1 source) Hormone replacement therapy; Translations: [HORMONE REPLACEMENT THERAPY] Onset: 06-21-2022 Episodic Mood disorders (1 source) Depressive disorder 03-03-2019 Chronic Mood disorders (1 source) Mood disorders; Translations: [DEPRESSION UNSPECIFIED] Onset: 05-09-2022 Other aftercare (1 source) Other longterm (current) drug therapy; Translations: [OTH [facility] CURRENT DRUG THERAPY] Onset: 06-21-2022 Episodic Other aftercare (1 source) 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; 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] Onset: 06-21-2022 Episodic Other and ill-defined heart disease (2 sources) Diastolic dysfunction; Translations: [Other ill-defined heart diseases] 02-25-2021 Chronic Other circulatory disease (1 source) Personal history of transient ischemic attack (TIA), and cerebral infarction without residual deficits; Translations: [PERS HX TIA AND CI NO RESID DEFICIT] Onset: 05-09-2022 Episodic Other connective tissue disease (3 sources) Other specified soft tissue disorders; Translations: [OTHER SPEC SOFT TISSUE DISORDERS] Onset: 06-20-2022 Episodic Other gastrointestinal disorders (1 source) Dysphagia; Translations: [Dysphagia, unspecified] 07-25-2023 Episodic Other gastrointestinal disorders (2 sources) Dysphagia, unspecified; Translations: [Dysphagia, unspecified] Onset: 07-19-2023 07-25-2023 Episodic Other injuries and conditions due to [...] OF PNEUMONIA RECURRENT] Onset: 05-09-2022 Episodic Other lower respiratory disease (2 sources) Hypoxia; Translations: [Hypoxemia] 02-24-2021 Episodic Other lower respiratory disease (2 sources) Acute respiratory distress; Translations: [Acute respiratory distress] 02-24-2021 Episodic Other lower respiratory disease (2 sources) Hypoxemia; Translations: [Hypoxemia] Onset: 07-19-2023 07-25-2023 Episodic Other non-traumatic joint disorders (1 source) Osteophyte, vertebrae; Translations: [OSTEOPHYTE VERTEBRAE] Onset: 05-09-2022 Chronic Other nutritional; endocrine; and metabolic disorders (1 source) Morbid obesity 03-03-2019 Chronic Other nutritional; endocrine; and metabolic disorders (2 sources) Obesity; Translations: [Obesity, unspecified] 02-25-2021 Chronic Other nutritional; endocrine; and metabolic disorders (2 sources) Alveolar hypoventilation; Translations: [Morbid (severe) obesity with alveolar hypoventilation] 02-25-2021 Chronic Other screening for suspected conditions (not mental disorders or infectious disease) (1 source) Raised prostate specific antigen 03-03-2019 Episodic Peripheral and visceral atherosclerosis (1 source) Peripheral vascular disease, unspecified; Translations: [PERIPHERAL VASCULAR DISEASE UNS] Onset: 06-21-2022 Chronic Pneumonia (except that caused by tuberculosis or sexually transmitted disease) (2 sources) Community acquired pneumonia; Translations: [Pneumonia, unspecified organism] 02-24-2021 Episodic Residual codes; unclassified (1 source) Edema, unspecified; Translations: [EDEMA UNSPECIFIED] Onset: 06-21-2022 Episodic Residual codes; unclassified (1 source) H/O: anticoagulant therapy 03-03-2019 Episodic Residual codes; unclassified (2 sources) Altered mental status; Translations: [Altered mental status, unspecified] 07-19-2023 Episodic Residual codes; unclassified (3 sources) Altered mental status, unspecified; Translations: [Altered mental status] Onset: 07-19-2023 07-19-2023 Episodic Respiratory failure; insufficiency; arrest (adult) (2 sources) Acute on chronic hypoxemic and hypercapnic respiratory failure; Translations: [Acute and chronic respiratory failure with hypoxia] 02-25-2021 Chronic Screening and history of mental health and substance abuse codes (1 source) Tobacco use and exposure - finding 03-03-2019 Chronic Screening and history of mental health and substance abuse codes (1 source) Personal history of nicotine dependence; Translations: [PERSONAL HISTORY OF NICOTINE DEPEND] Onset: 06-21-2022 Episodic Skin and subcutaneous tissue infections (3 sources) Cellulitis; Translations: [Cellulitis, unspecified] Onset: 07-19-2023 07-25-2023 Episodic Spondylosis; intervertebral disc disorders; other back problems (1 source) Other intervertebral disc degeneration, lumbar region; Translations: [OTH IV DISC DEGEN LUMBAR REGION] Onset: 05-09-2022 Chronic Spondylosis; intervertebral disc disorders; other back problems (2 sources) Low back pain; Translations: [Low back pain] 03-02-2021 Episodic Sprains and strains (2 sources) Sprain of knee; Translations: [Sprain of unspecified site of unspecified knee, initial encounter] 01-05-2019 Episodic Superficial injury; contusion (1 source) Superficial injury of head; Translations: [Contusion of other part of head, initial encounter] Onset: 07-11-2022 Episodic Thyroid disorders (1 source) Hypothyroidism, unspecified; Translations: [HYPOTHYROIDISM UNSPECIFIED] Onset: 06-21-2022 Chronic Unclassified (3 sources) LOW BACK PAIN, UNSPECIFIED; Translations: [LOW BACK PAIN, UNSPECIFIED] Onset: 05-09-2022 Unclassified (1 source) Drug therapy finding 03-03-2019 Urinary tract infections (4 sources) Urinary tract infectious disease; Translations: [Urinary tract infection, site not specified] 07-19-2023 Episodic Past or Other Problems Problem Classification Problem Date Documented Da te Episodic/Chronic Other nutritional; endocrine; and metabolic disorders (1 source) Body mass index 40+ - severely obese Resolved: 03-03-2019 03-03-2019 Chronic Unclassified (1 source) LOW BACK PAIN, UNSPECIFIED; Translations: [LOW BACK PAIN, UNSPECIFIED] Onset: 05-05-2022 Results Test Name Value Interpretation Reference Range Facility Basic Metabolic Panelon 07-15 Anion gap [Moles/Vol] 10.4 mmol/L Normal 6.0-15.0 e [facility] Comment on above: Performed By: #### L PHUC PURI #### [facility] [address] [place] [address] [place] Calcium [Mass/Vol] 9.0 mg/dL Normal 8.6-10.3 [facility] Comment on above: Performed By: #### L PHUC PURI #### [facility] [address] [place] [address] [place] Chloride [Moles/Vol] 98 mmol/L Normal 98-107 [facility] Comment on above: Performed By: #### L PHUC PURI #### [facility] [address] [place] [address] [place] CO2 [Moles/Vol] 33.7 mmol/L High 21.0-31.0 [facility] Comment on above: Performed By: #### L PHUC PURI #### [facility] [address] [place] [address] [place] Creatinine [Mass/Vol] 1.20 mg/dL Normal 0.70-1.30 [facility] Comment on above: Performed By: #### L PHUC PURI #### [facility] [address] [place] [address] [place] Creatinine Clr Calc Pharmacy 77.38 Normal [facility] Comment on above: Result Comment: PERF ORMED BY: [place] [address] PATHOLOGIST GENERAL SURGEON FREDA ALCAZAR M.D. Performed By: #### L PHUC PURI #### [place] [address] [place] GFR/1.73 sq M.predicted MDRD (S/P/Bld) [Vol rate/Area] mL/min/{1.73_m2} Normal [facility] Comment on above: Performed By: #### L PHUC PURI #### [facility] [address] Glucose [Mass/Vol] 141 mg/dL High 70-100 [facility] Comment on above: Result Comment: [facility] Glucose Reference Range is dependent on time and content of last meal. Glucose of more than 200 mg/dL in a nonstressed, ambulatory subject supports the diagnosis of Diabetes Mellitus. ADA recommended reference range Performed By: #### L PHUC PURI #### [facility] [address] Potassium [Moles/Vol] 4.1 mmol/L Normal 3.5-5.1 [facility] Comment on above: Performed By: #### L PHUC PURI #### [facility] [address] Sodium [Moles/Vol] 138 mmol/L Normal 136-145 [facility] Comment on above: Performed By: #### L PHUC PURI #### [facility] [address] Urea nitrogen [Mass/Vol] 12 mg/dL Normal 7-25 [facility] Comment on above: Performed By: #### L PHUC PURI #### [facility] [address] Basophils Auto (Bld) [#/Vol] Ordered By: oMnica Crocker on 07-25-2023 Basophils (Bld) [#/Vol] 0.1 10*3/uL 0.0-0.[address] [facility] Basophils/100 WBC Auto (Bld) Ordered By: Monica Crocker on 07-25-2023 Basophils/100 WBC (Bld) 1.1 % . [facility] Calcium [Mass/volume] in Ser um or PlasmaOrdered By: Monica Crocker on 07-25-2023 Calcium [Mass/Vol] 9.0 mg/dL 8.6-10.3 [facility] Carbon dioxide, total [Moles /volume] in Serum or PlasmaOrdered By: Monica Crocker on 07-25-2023 CO2 [Moles/Vol] 33.7 mmol/L 21.0-31.0 [facility] Chloride [Moles/volume] in S erika or PlasmaOrdered By: Monica Crocker on 07-25-2023 Chloride [Moles/Vol] 98 mmol/L 98-107 [facility] Complete Blood Count Auto Di ffon 07-25-2023 Basophils (Bld) [#/Vol] 0.1 10*3/uL Normal 0.0-0.2 [facility] Comment on above: Result Comment: PERF ORMED BY: [place] [address] PATHOLOGIST GENERAL SURGEON FREDA ALCAZAR M.D. Performed By: #### L PHUC PURI #### [address] Basophils/100 WBC (Bld) 1.1 % Normal . [facility] Comment on above: Performed By: #### L PHUC PURI #### [address] Eosinophils (Bld) [#/Vol] 0.4 10*3/uL Normal 0.0-0.45 [facility] Comment on above: Performed By: #### L PHUC PURI #### [address] Eosinophils/100 WBC (Bld) 3.1 % Normal . [facility] Comment on above: Performed By: #### L ACTSHERRIE VELASCOLD #### [address] Erythrocyte distribution width (RBC) [Ratio] 15.6 % High 12.0-14.8 [facility] Comment on above: Performed By: #### L ACTSHERRIE VELASCOLD #### [address] Hematocrit (Bld) [Volume fraction] 41.2 % Normal 38.8-50.0 [facility] Comment on above: Performed By: #### L PHUC PURI #### [address] Hemoglobin (Bld) [Mass/Vol] 12.8 g/dL Low 13.0-17.0 [facility] Comment on above: Performed By: #### L PHUC PURI #### [address] Lymphocytes (Bld) [#/Vol] 1.6 10*3/uL Normal 1.00-4.8 [facility] Comment on above: Performed By: #### L PHUC PURI #### [address] Lymphocytes/100 WBC (Bld) 12.8 % Normal . [facility] Comment on above: Performed By: #### L PHUC PURI #### [address] MCH (RBC) [Entitic mass] 26.1 pg Low 27.5-35.2 [facility] Comment on above: Performed By: #### L PHUC PURI #### [address] MCV (RBC) [Entitic vol] 84.3 fL Normal 83.5-101 [facility] Comment on above: Performed By: #### L PHUC PURI #### [address] Mean Corpuscular HGB Conc 30.9 g/dL Low 32.5-35.6 [facility] Comment on above: Performed By: #### L ACTPHUC VELASCO #### [address] Monocytes (Bld) [#/Vol] 0.9 10*3/uL High 0.0-0.8 [facility] Comment on above: Performed By: #### L PHUC PURI #### [place] [address] [place] Monocytes/100 WBC (Bld) 7.0 % Normal . [facility] Comment on above: Performed By: #### L PHUC PURI #### [address] Neutrophils (Bld) [#/Vol] 9.5 10*3/uL High 1.8-7.7 [facility] Comment on above: Performed By: #### L PHUC PURI #### [address] Neutrophils/100 WBC (Bld) 76.0 % Normal . [facility] Comment on above: Performed By: #### L PHUC PURI #### [address] NRBC% 0.1 /100{WBC} Normal 0-0.5 [facility] Comment on above: Performed By: #### L PHUC PURI #### [address] Platelet mean volume (Bld) [Entitic vol] 7.8 fL Normal 6.6-10.1 [facility] Comment on above: Performed By: #### L PHUC PURI #### [place] [address] [place] Platelets (Bld) [#/Vol] 348 10*3/uL Normal 150-450 [facility] Comment on above: Performed By: #### L PHUC PURI #### [address] RBC (Bld) [#/Vol] 4.89 10*6/uL Normal 3.90-5.60 [facility] Comment on above: Performed By: #### L PHUC PURI #### [address] WBC (Bld) [#/Vol] 12.4 10*3/uL High 4.1-10.5 [facility] Comment on above: Performed By: #### L PHUC PURI #### [address] [place] [address] [facility] Creatinine [Mass/volume] in Serum or PlasmaOrdered By: Monica Crocker on 07-25-2023 Creatinine [Mass/Vol] 1.20 mg/dL 0.70-1.30 [facility] Eosinophils Auto (Bld) [#/Vo l]Ordered By: Monica Crocker on 07-25-2023 Eosinophils (Bld) [#/Vol] 0.4 10*3/uL 0.0-0.[address] [facility] Eosinophils/100 WBC Auto (Bl d)Ordered By: Monica Crocker on 07-25-2023 Eosinophils/100 WBC (Bld) 3.1 % . [facility] Erythrocyte distribution wid th Auto (RBC) [Ratio]Ordered By: Monica Cordero on 07-25-2023 Erythrocyte distribution width (RBC) [Ratio] 15.6 % 12.0-14.[address] [facility] Glucose Glucometer (BldC) [M ass/Vol]Ordered By: Luigi Napoles on 07-25-2023 Glucose [Mass/Vol] 172 mg/dL [facility] Comment on above: Random Glucose Refer ence Range is dependent on time and content of last meal. Glucose of more than 200 mg/dL in a nonstressed, ambulatory subject supports the diagnosis of Diabetes Mellitus. Glucose Poct Glucometerson 0 07-25-2023 Glucose [Mass/Vol] 172 mg/dL Normal [facility] Comment on above: Result Comment: [place] Glucose Reference Range is dependent on time and content of last meal. Glucose of more than 200 mg/dL in a nonstressed, ambulatory subject supports the diagnosis of Diabetes Mellitus. PERFORMED BY: [facility] [address] [place] [address] PATHOLOGIST GENERAL SURGEON FREDA ALCAZAR M.D. Performed By: #### G ELEAZAR #### Point of Care testing , Glucose [Mass/Vol] 177 mg/dL Normal [facility] Comment on above: Result Comment: [facility] Glucose Reference Range is dependent on time and content of last meal. Glucose of more than 200 mg/dL in a nonstressed, ambulatory subject supports the diagnosis of Diabetes Mellitus. PERFORMED BY: [facility] [address] [place] [address] PATHOLOGIST GENERAL SURGEON FREDA ALCAZAR M.D. Performed By: #### L PHUC PURI #### [facility] [address] Glucose [Mass/volume] in Ser um or PlasmaOrdered By: Monica Crocker on 07-25-2023 Glucose [Mass/Vol] 141 mg/dL 70-100 [facility] Comment on above: ADA recommended refe rence rangeRandom Glucose Reference Range is dependent on time and content of last meal. Glucose of more than 200 mg/dL in a nonstressed, ambulatory subject supports the diagnosis of Diabetes Mellitus. Hematocrit Auto (Bld) [Volum e fraction]Ordered By: Monica Crocker on 07-25-2023 Hematocrit (Bld) [Volume fraction] 41.2 % 38.8-50.[address] [facility] Hemoglobin [Mass/volume] in BloodOrdered By: Monica Crocker on 07-25-2023 Hemoglobin (Bld) [Mass/Vol] 12.8 g/dL 13.0-17.[address] [facility] Leukocytes [#/volume] correc marina for nucleated erythrocytes in Blood by Automated counOrdered By: Monica Crocker on 07-25-2023 WBC corrected for nucl RBC Auto (Bld) [#/Vol] 12.4 10*3/uL 4.1-10.[address] [facility] Lymphocytes Auto (Bld) [#/Vo l]Ordered By: Monica Crocker on 07-25-2023 Lymphocytes (Bld) [#/Vol] 1.6 10*3/uL 1.00-4.[address] [facility] Lymphocytes/100 WBC Auto (Bl d)Ordered By: Monica Crocker on 07-25-2023 Lymphocytes/100 WBC (Bld) 12.8 % . [facility] MCH Auto (RBC) [Entitic mass ]Ordered By: Monica Crocker on 07-25-2023 MCH (RBC) [Entitic mass] 26.1 pg 27.5-35.[address] [facility] MCHC Auto (RBC) [Mass/Vol]Or dered By: Monica Crocker on 07-25-2023 MCHC (RBC) [Mass/Vol] 30.9 g/dL 32.5-35.6 [facility] MCV Auto (RBC) [Entitic vol] Ordered By: Monica Crocker on 07-25-2023 MCV (RBC) [Entitic vol] 84.3 fL 83.5-[address] [facility] Monocytes Auto (Bld) [#/Vol] Ordered By: Monica Crocker on 07-25-2023 Monocytes (Bld) [#/Vol] 0.9 10*3/uL 0.0-0.[address] [facility] Monocytes/100 WBC Auto (Bld) Ordered By: Monica Crocker on 07-25-2023 Monocytes/100 WBC (Bld) 7.0 % . [facility] Neutrophils Auto (Bld) [#/Vo l]Ordered By: Monica Crocker on 07-25-2023 Neutrophils (Bld) [#/Vol] 9.5 10*3/uL 1.8-7.[address] [facility] Neutrophils/100 WBC Auto (Bl d)Ordered By: Monica Crocker on 07-25-2023 Neutrophils/100 WBC (Bld) 76.0 % . [facility] No Panel InformationOrdered By: Monica Crocker on 07-25-2023 Estimated GFR (CKD-EPI) > 60.0 mL/Min [facility] Creatinine Clearance (Chem 77.[address] [facility] Nucleated erythrocytes [Pres ence] in Blood by Automated countOrdered By: Monica Crocker on 07-25-2023 Nucleated RBC Auto Ql (Bld) 0.1 /100{WBC} 0-0.[address] [facility] Platelet mean volume Auto (B ld) [Entitic vol]Ordered By: Monica Crocker on 07-25-2023 Platelet mean volume (Bld) [Entitic vol] 7.8 fL 6.6-10.[address] [facility] Platelets Auto (Bld) [#/Vol] Ordered By: Monica Crocker on 07-25-2023 Platelets (Bld) [#/Vol] 348 10*3/uL 150-[address] [facility] Potassium [Moles/volume] in Serum or PlasmaOrdered By: Monica Crocker on 07-25-2023 Potassium [Moles/Vol] 4.1 mmol/L 3.5-5.1 [facility] RBC Auto (Bld) [#/Vol]Ordere d By: Monica Crocker on 07-25-2023 RBC (Bld) [#/Vol] 4.89 10*6/uL 3.90-5.60 [facility] Serum or plasma anion gap de terminationOrdered By: Monica Crocker on 07-25-2023 Anion gap [Moles/Vol] 10.4 mmol/L 6.0-15.0 [facility] Sodium [Moles/volume] in Ser um or PlasmaOrdered By: Monica Crocker on 07-25-2023 Sodium [Moles/Vol] 138 mmol/L 136-145 [facility] Urea nitrogen [Mass/volume] in Serum or PlasmaOrdered By: Monica Crocker on 07-25-2023 Urea nitrogen [Mass/Vol] 12 mg/dL 7-[address] [facility] WBC Auto (Bld) [#/Vol]Ordere d By: Monica Crocker on 07-25-2023 WBC (Bld) [#/Vol] 12.4 10*3/uL 4.1-10.5 [facility] Anisocytosis LM Ql (Bld)Orde red By: Balbina Garzon on 07-24-2023 Anisocytosis Ql (Bld) Slight [facility] Basic Metabolic Panelon Anion gap [Moles/Vol] 9.3 mmol/L Normal 6.0-15.0 [facility] Comment on above: Performed By: #### L ACTIC, CUBLD #### [address] Calcium [Mass/Vol] 8.8 mg/dL Normal 8.6-10.3 [facility] Comment on above: Performed By: #### L PHUC PURI #### [facility] [address] [place] [address] [place] Chloride [Moles/Vol] 98 mmol/L Normal 98-107 [facility] Comment on above: Performed By: #### L SHERRIE PURILD #### [facility] [address] [place] [address] [place] CO2 [Moles/Vol] 33.8 mmol/L High 21.0-31.0 [facility] Comment on above: Performed By: #### L PHUC PURI #### [address] Creatinine [Mass/Vol] 1.22 mg/dL Normal 0.70-1.30 [facility] Comment on above: Performed By: #### L PHUC PURI #### [place] [address] [place] Creatinine Clr Calc Pharmacy 76.25 Normal [facility] Comment on above: Performed By: #### L PHUC PURI #### [place] [address] [place] GFR/1.73 sq M.predicted MDRD (S/P/Bld) [Vol rate/Area] mL/min/{1.73_m2} Normal [facility] Comment on above: Performed By: #### L PHUC PURI #### [place] [address] [place] Glucose [Mass/Vol] 152 mg/dL High 70-100 [facility] Comment on above: Result Comment: [place] Glucose Reference Range is dependent on time and content of last meal. Glucose of more than 200 mg/dL in a nonstressed, ambulatory subject supports the diagnosis of Diabetes Mellitus. ADA recommended reference range Performed By: #### L ACTSHERRIE VELASCOLD #### [address] Potassium [Moles/Vol] 4.1 mmol/L Normal 3.5-5.1 [facility] Comment on above: Performed By: #### L PHUC PURI #### [facility] [address] Sodium [Moles/Vol] 137 mmol/L Normal 136-145 [facility] Comment on above: Performed By: #### L PHUC PURI #### [facility] [address] [place] [id number] [facility] Urea nitrogen [Mass/Vol] 13 mg/dL Normal 7-25 [facility] Comment on above: Performed By: #### L PHUC PURI #### [facility] [address] Glucose Poct Glucometerson 0 - Glucose [Mass/Vol] 186 mg/dL Normal [facility] Comment on above: Result Comment: [place] om Glucose Reference Range is dependent on time and content of last meal. Glucose of more than 200 mg/dL in a nonstressed, ambulatory subject supports the diagnosis of Diabetes Mellitus. PERFORMED BY: [place] [address] PATHOLOGIST GENERAL SURGEON FREDA ALCAZAR M.D. Performed By: #### A DDONUAPLUSBRENNANU #### [address] Glucose [Mass/Vol] 153 mg/dL Normal [facility] Comment on above: Result Comment: [place] om Glucose Reference Range is dependent on time and content of last meal. Glucose of more than 200 mg/dL in a nonstressed, ambulatory subject supports the diagnosis of Diabetes Mellitus. PERFORMED BY: [place] [address] PATHOLOGIST GENERAL SURGEON FREDA ALCAZAR M.D. Performed By: #### L PHUC PURI #### [address] Commemt1 Glu2: Cleaned Meter Normal [facility] Comment on above: Result Comment: PERF ORMED BY: [place] [address] PATHOLOGIST GENERAL SURGEON JIANLAN SUN M.D. Performed By: #### G LULS #### Point of Care testing , Glucose [Mass/Vol] 214 mg/dL Normal [facility] Comment on above: Result Comment: [place] om Glucose Reference Range is dependent on time and content of last meal. Glucose of more than 200 mg/dL in a nonstressed, ambulatory subject supports the diagnosis of Diabetes Mellitus. Performed By: #### G LULS #### Point of Care testing , Glucose [Mass/Vol] 155 mg/dL Normal [facility] Comment on above: Result Comment: [place] om Glucose Reference Range is dependent on time and content of last meal. Glucose of more than 200 mg/dL in a nonstressed, ambulatory subject supports the diagnosis of Diabetes Mellitus. PERFORMED BY: [place] [address] PATHOLOGIST GENERAL SURGEON FREDA ALCAZAR M.D. Performed By: #### G LULS #### Point of Care testing , Hypochromia LM Ql (Bld)Order ed By: Balbina Garzon on 07-24-2023 Hypochromia Ql (Bld) Slight [facility] Magnesiumon 07-24-2023 Magnesium [Mass/Vol] 2.0 mg/dL Normal 1.9-2.7 [facility] Comment on above: Result Comment: PERF ORMED BY: [place] [address] PATHOLOGIST GENERAL SURGEON FREDA ALCAZAR M.D. Performed By: #### L PHUC PURI #### [address] Magnesium [Mass/volume] in S erika or PlasmaOrdered By: Monica Crocker on 07-24-2023 Magnesium [Mass/Vol] 2.0 mg/dL 1.9-2.7 [facility] No Panel InformationOrdered By: Luigi Napoles on 07-24-2023 Bedside Glucose Comment Glu2: cleaned meter [facility] Platelet adequacy [Presence] in Blood by Light microscopyOrdered By: Balbina Garzon on 07-24-2023 Platelets LM Ql (Bld) Normal Normal [facility] Platelet morphology finding [Identifier] in BloodOrdered By: Balbina Garzon on 07-24-2023 Platelet morphology finding Nom (Bld) Normal Normal [facility] Polychromasia [Presence] in Blood by Light microscopyOrdered By: Balbina Garzon on 07-24-2023 Polychromasia LM Ql (Bld) Slight [facility] RBC morphologyOrdered By: Conchis Garzon on 07-24-2023 RBC morphology finding Nom (Bld) N/A [facility] Scan and CBCon 07-24-2023 Anisocytosis Ql (Bld) Slight Normal [facility] Comment on above: Performed By: #### L PHUC PURI #### [place] [address] [place] Basophils (Bld) [#/Vol] 0.1 10*3/uL Normal 0.0-0.2 [facility] Comment on above: Performed By: #### L PHUC PURI #### [place] [address] [place] Basophils/100 WBC (Bld) 1.0 % Normal . [facility] Comment on above: Performed By: #### L PHUC PURI #### [place] [address] [place] Eosinophils (Bld) [#/Vol] 0.4 10*3/uL Normal 0.0-0.45 [facility] Comment on above: Performed By: #### L PHUC PURI #### [place] [address] [place] Eosinophils/100 WBC (Bld) 3.6 % Normal . [facility] Comment on above: Performed By: #### L PHUC PURI #### [address] Erythrocyte distribution width (RBC) [Ratio] 15.5 % High 12.0-14.8 [facility] Comment on above: Performed By: #### L PHUC PURI #### [address] Hematocrit (Bld) [Volume fraction] 39.7 % Normal 38.8-50.0 [facility] Comment on above: Performed By: #### L ACTSHERRIE VELASCOLD #### [address] Hemoglobin (Bld) [Mass/Vol] 12.1 g/dL Low 13.0-17.0 [facility] Comment on above: Performed By: #### L ACTROD CUBLD #### [address] Hypochromasia Slight Normal [facility] Comment on above: Performed By: #### L ACTICSHERRIELD #### [address] Lymphocytes (Bld) [#/Vol] 1.4 10*3/uL Normal 1.00-4.8 [facility] Comment on above: Performed By: #### L ACTSHERRIE VELASCOLD #### [address] Lymphocytes/100 WBC (Bld) 12.5 % Normal . [facility] Comment on above: Performed By: #### L ACTSHERRIE VELASCOLD #### [address] MCH (RBC) [Entitic mass] 25.8 pg Low 27.5-35.2 [facility] Comment on above: Performed By: #### L ACTSHERRIE VELASCOLD #### [address] MCV (RBC) [Entitic vol] 85.1 fL Normal 83.5-101 [facility] Comment on above: Performed By: #### L ACTICSHERRIELD #### [address] Mean Corpuscular HGB Conc 30.4 g/dL Low 32.5-35.6 [facility] Comment on above: Performed By: #### L ACTIC CUBLD #### [address] Monocytes (Bld) [#/Vol] 1.0 10*3/uL High 0.0-0.8 [facility] Comment on above: Performed By: #### L ACTPHUC VELASCO #### [place] [address] [place] Monocytes/100 WBC (Bld) 8.3 % Normal . [facility] Comment on above: Performed By: #### L ACTPHUC VELASCO #### [place] [address] [place] Neutrophils (Bld) [#/Vol] 8.6 10*3/uL High 1.8-7.7 [facility] Comment on above: Performed By: #### L ACTPHUC VELASCO #### [address] Neutrophils/100 WBC (Bld) 74.6 % Normal . [facility] Comment on above: Performed By: #### L ACTPHUC VELASCO #### [address] NRBC% 0.0 /100{WBC} Normal 0-0.5 [facility] Comment on above: Performed By: #### L ACTPHUC VELASCO #### [address] Platelet Estimate Normal Normal Normal [facility] Comment on above: Performed By: #### L ACTPHUC VELASCO #### [address] Platelet mean volume (Bld) [Entitic vol] 7.6 fL Normal 6.6-10.1 [facility] Comment on above: Performed By: #### L ACTPHUC VELASCO #### [address] Platelet Morphology Normal Normal Normal [facility] Comment on above: Result Comment: PERF ORMED BY: [place] [address] PATHOLOGIST GENERAL SURGEON FREDA ALCAZAR M.D. Performed By: #### L ACTSHERRIE VELASCOLD #### [place] [id number] [place] Platelets (Bld) [#/Vol] 325 10*3/uL Normal 150-450 [facility] Comment on above: Performed By: #### L PHUC PURI #### [address] Polychromasia Slight Normal [facility] Comment on above: Performed By: #### L PHUC PURI #### [address] RBC (Bld) [#/Vol] 4.67 10*6/uL Normal 3.90-5.60 [facility] Comment on above: Performed By: #### L PHUC PURI #### [address] WBC (Bld) [#/Vol] 11.5 10*3/uL High 4.1-10.5 [facility] Comment on above: Performed By: #### L PHUC PURI #### [address] Serum or plasma trough vanco mycin levelOrdered By: Sarah Herron on 07-24-2023 Vancomycin trough [Mass/Vol] 17.0 ug/mL 10.0-20.[address] [facility] Comment on above: Last dose: - Vancomycin [Mass/volume] in Serum or Plasma --peakOrdered By: Sarah Herron on 07-24-2023 Vancomycin peak [Mass/Vol] 23.2 ug/mL 20.0-40.[address] [facility] Comment on above: Last dose: - Vancomycin,Peakon 07-24-2023 Vancomycin,Peak 23.2 ug/mL Normal 20.0-40.0 [facility] Comment on above: Order Comment: Comme nt ?DRAW 1 HOUR AFTER INFUSION COMPLETES Date of last dose?: 20230722 Time of last dose?: 1300 Result Comment: Last dose: - PERFORMED BY: [place] [address] PATHOLOGIST GENERAL SURGEON FREDA ALCAZAR M.D. Performed By: #### G LULS #### Point of Care testing , Vancomycin,Troughon 07-24-19 Vancomycin,Trough 17.0 ug/mL Normal 10.0-20.0 [facility] Comment on above: Order Comment: Time of next dose? 99 Date of last dose?: 20230722 Time of last dose?: 1300 Result Comment: Last dose: - PERFORMED BY: [place] [address] PATHOLOGIST GENERAL SURGEON FREDA ALCAZAR M.D. Performed By: #### V ANCT #### [address] XR chest 1V portableon 07-23 XR chest 1V portable [facility] [place] [address] [place] [address] XRay Report Signed Patient: Corona Wharton MR#: [id number] 1 : 1945 Acct:[id number] Age/Sex: 78 / M ADM Date: 07/19/23 Loc: Room: [address] [place] [address] Type: ADM IN Attending Dr: Luigi Napoles DO Copies to: VIPIN Dunn DO Ordering Provider: Monica Crocker APRN Date of Service: 07/24/23 XR/XR chest 1V portable: hypoxia, leukocytosis SINGLE VIEW CHEST CLINICAL HISTORY: Hypoxia, leukocytosis COMPARISON: Chest 07/19/2023 FINDINGS: Cardiomegaly with vascular congestion. Left lower lobe airspace disease is seen. Elevation right hemidiaphragm. No pneumothorax, large pleural effusion or free air. XR/XR chest 1V portable IMPRESSION: LEFT LOWER LOBE AIRSPACE DISEASE SUPERIMPOSED ON CHF FINDINGS. FOLLOW-UP IS RECOMMENDED.. Impression dictated by: Kuldeep Yost Jr., D.O.07/24/2023 8:33 AM Dictation Location: [place] [address] Transcribed By: [facility] 07/24/23 0833 Dictated By: Kuldeep Yost Jr, DO 07/24/23 0832 Signed By: 07/24/23 0833 Normal [facility] Basic Metabolic Panelon 04-0 Anion gap [Moles/Vol] 9.1 mmol/L Normal 6.0-15.0 [facility] Comment on above: Performed By: #### G LULS #### Point of Care testing , Calcium [Mass/Vol] 8.8 mg/dL Normal 8.6-10.3 [facility] Comment on above: Performed By: #### G LULS #### Point of Care testing , Chloride [Moles/Vol] 98 mmol/L Normal 98-107 [facility] Comment on above: Performed By: #### G LULS #### Point of Care testing , CO2 [Moles/Vol] 33.0 mmol/L High 21.0-31.0 [facility] Comment on above: Performed By: #### G LULS #### Point of Care testing , Creatinine [Mass/Vol] 1.21 mg/dL Normal 0.70-1.30 [facility] Comment on above: Performed By: #### G LULS #### Point of Care testing , Creatinine Clr Calc Pharmacy 76.77 Normal [facility] Comment on above: Result Comment: PERF ORMED BY: [address] [place] [address] PATHOLOGIST GENERAL SURGEON FREDA ALCAZAR M.D. Performed By: #### G LULS #### Point of Care testing , GFR/1.73 sq M.predicted MDRD (S/P/Bld) [Vol rate/Area] mL/min/{1.73_m2} Normal [facility] Comment on above: Performed By: #### G LULS #### Point of Care testing , Glucose [Mass/Vol] 164 mg/dL High 70-100 [facility] Comment on above: Result Comment: [place] Glucose Reference Range is dependent on time and content of last meal. Glucose of more than 200 mg/dL in a nonstressed, ambulatory subject supports the diagnosis of Diabetes Mellitus. ADA recommended reference range Performed By: #### G LULS #### Point of Care testing , Potassium [Moles/Vol] 4.1 mmol/L Normal 3.5-5.1 [facility] Comment on above: Performed By: #### G LULS #### Point of Care testing , Sodium [Moles/Vol] 136 mmol/L Normal 136-145 [facility] Comment on above: Performed By: #### G LULS #### Point of Care testing , Urea nitrogen [Mass/Vol] 14 mg/dL Normal 7-25 [facility] Comment on above: Performed By: #### G LULS #### Point of Care testing , Complete Blood Count Auto Di ffon 07-23-2023 Basophils (Bld) [#/Vol] 0.1 10*3/uL Normal 0.0-0.2 [facility] Comment on above: Result Comment: PERF ORMED BY: [place] [address] [address] [address] PATHOLOGIST GENERAL SURGEON FREDA ALCAZAR M.D. Performed By: #### G LULS #### Point of Care testing , Basophils/100 WBC (Bld) 0.9 % Normal . [facility] Comment on above: Performed By: #### G LULS #### Point of Care testing , Eosinophils (Bld) [#/Vol] 0.4 10*3/uL Normal 0.0-0.45 [facility] Comment on above: Performed By: #### G LULS #### Point of Care testing , Eosinophils/100 WBC (Bld) 3.0 % Normal . [facility] Comment on above: Performed By: #### G LULS #### Point of Care testing , Erythrocyte distribution width (RBC) [Ratio] 15.6 % High 12.0-14.8 [facility] Comment on above: Performed By: #### G LULS #### Point of Care testing , Hematocrit (Bld) [Volume fraction] 39.1 % Normal 38.8-50.0 [facility] Comment on above: Performed By: #### G LULS #### Point of Care testing , Hemoglobin (Bld) [Mass/Vol] 12.2 g/dL Low 13.0-17.0 [facility] Comment on above: Performed By: #### G LULS #### Point of Care testing , Lymphocytes (Bld) [#/Vol] 1.5 10*3/uL Normal 1.00-4.8 [facility] Comment on above: Performed By: #### G LULS #### Point of Care testing , Lymphocytes/100 WBC (Bld) 12.0 % Normal . [facility] Comment on above: Performed By: #### G LULS #### Point of Care testing , MCH (RBC) [Entitic mass] 26.3 pg Low 27.5-35.2 [facility] Comment on above: Performed By: #### G LULS #### Point of Care testing , MCV (RBC) [Entitic vol] 84.4 fL Normal 83.5-101 [facility] Comment on above: Performed By: #### G LULS #### Point of Care testing , Mean Corpuscular HGB Conc 31.1 g/dL Low 32.5-35.6 [facility] Comment on above: Performed By: #### G LULS #### Point of Care testing , Monocytes (Bld) [#/Vol] 1.1 10*3/uL High 0.0-0.8 [facility] Comment on above: Performed By: #### G LULS #### Point of Care testing , Monocytes/100 WBC (Bld) 8.2 % Normal . [facility] Comment on above: Performed By: #### G LULS #### Point of Care testing , Neutrophils (Bld) [#/Vol] 9.8 10*3/uL High 1.8-7.7 [facility] Comment on above: Performed By: #### G LULS #### Point of Care testing , Neutrophils/100 WBC (Bld) 75.9 % Normal . [facility] Comment on above: Performed By: #### G LULS #### Point of Care testing , NRBC% 0.0 /100{WBC} Normal 0-0.5 [facility] Comment on above: Performed By: #### G LULS #### Point of Care testing , Platelet mean volume (Bld) [Entitic vol] 7.7 fL Normal 6.6-10.1 [facility] Comment on above: Performed By: #### G LULS #### Point of Care testing , Platelets (Bld) [#/Vol] 328 10*3/uL Normal 150-450 [facility] Comment on above: Performed By: #### G LULS #### Point of Care testing , RBC (Bld) [#/Vol] 4.64 10*6/uL Normal 3.90-5.60 [facility] Comment on above: Performed By: #### G LULS #### Point of Care testing , WBC (Bld) [#/Vol] 12.9 10*3/uL High 4.1-10.5 [facility] Comment on above: Performed By: #### G LULS #### Point of Care testing , Glucose Poct Glucometerson 0 07-23-2023 Glucose [Mass/Vol] 158 mg/dL Normal [facility] Comment on above: Result Comment: [facility] Glucose Reference Range is dependent on time and content of last meal. Glucose of more than 200 mg/dL in a nonstressed, ambulatory subject supports the diagnosis of Diabetes Mellitus. PERFORMED BY: [place] [address] PATHOLOGIST GENERAL SURGEON FREDA ALCAZAR M.D. Performed By: #### L PHUC PURI #### [address] Glucose [Mass/Vol] 160 mg/dL Normal [facility] Comment on above: Result Comment: [facility] Glucose Reference Range is dependent on time and content of last meal. Glucose of more than 200 mg/dL in a nonstressed, ambulatory subject supports the diagnosis of Diabetes Mellitus. PERFORMED BY: [place] [address] PATHOLOGIST GENERAL SURGEON FREDA ALCAZAR M.D. Performed By: #### L SHERRIE PURILD #### [address] Commemt1 Glu2: Cleaned Meter Normal [facility] Comment on above: Result Comment: PERF ORMED BY: [place] [address] PATHOLOGIST GENERAL SURGEON FREDA ALCAZAR M.D. Performed By: #### L PHUC PURI #### [address] Glucose [Mass/Vol] 186 mg/dL Normal [facility] Comment on above: Result Comment: [place] [facility] Glucose Reference Range is dependent on time and content of last meal. Glucose of more than 200 mg/dL in a nonstressed, ambulatory subject supports the diagnosis of Diabetes Mellitus. Performed By: #### L PHUC PURI #### [address] Glucose [Mass/Vol] 175 mg/dL Normal [facility] Comment on above: Result Comment: [place] [facility] Glucose Reference Range is dependent on time and content of last meal. Glucose of more than 200 mg/dL in a nonstressed, ambulatory subject supports the diagnosis of Diabetes Mellitus. PERFORMED BY: [place] [address] PATHOLOGIST GENERAL SURGEON FREDA ALCAZAR M.D. Performed By: #### G LULS #### Point of Care testing , B-Type Natriuretic Peptideon 07-22-2023 Natriuretic peptide B (Bld) [Mass/Vol] 270.0 pg/mL High 5-100 [facility] Comment on above: Order Comment: Comme nt Add on Result Comment: PERF ORMED BY: [place] [address] PATHOLOGIST GENERAL SURGEON FREDA ALCAZAR M.D. Performed By: #### L PHUC PURI #### [address] Basic Metabolic Panelon 04-0 Anion gap [Moles/Vol] 8.3 mmol/L Normal 6.0-15.0 [facility] Comment on above: Performed By: #### G LULS #### Point of Care testing , Calcium [Mass/Vol] 8.7 mg/dL Normal 8.6-10.3 [facility] Comment on above: Performed By: #### G LULS #### Point of Care testing , Chloride [Moles/Vol] 98 mmol/L Normal 98-107 [facility] Comment on above: Performed By: #### G LULS #### Point of Care testing , CO2 [Moles/Vol] 34.9 mmol/L High 21.0-31.0 [facility] Comment on above: Performed By: #### G LULS #### Point of Care testing , Creatinine [Mass/Vol] 1.22 mg/dL Normal 0.70-1.30 [facility] Comment on above: Performed By: #### G LULS #### Point of Care testing , Creatinine Clr Calc Pharmacy 76.57 Normal [facility] Comment on above: Result Comment: PERF ORMED BY: [address] [place] [place] [address] PATHOLOGIST GENERAL SURGEON FREDA ALCAZAR M.D. Performed By: #### G LULS #### Point of Care testing , GFR/1.73 sq M.predicted MDRD (S/P/Bld) [Vol rate/Area] mL/min/{1.73_m2} Normal [facility] Comment on above: Performed By: #### G LULS #### Point of Care testing , Glucose [Mass/Vol] 169 mg/dL High 70-100 [facility] Comment on above: Result Comment: [facility] Glucose Reference Range is dependent on time and content of last meal. Glucose of more than 200 mg/dL in a nonstressed, ambulatory subject supports the diagnosis of Diabetes Mellitus. ADA recommended reference range Performed By: #### G LULS #### Point of Care testing , Potassium [Moles/Vol] 4.2 mmol/L Normal 3.5-5.1 [facility] Comment on above: Performed By: #### G LULS #### Point of Care testing , Sodium [Moles/Vol] 137 mmol/L Normal 136-145 [facility] Comment on above: Performed By: #### G LULS #### Point of Care testing , Urea nitrogen [Mass/Vol] 15 mg/dL Normal 7-25 [facility] Comment on above: Performed By: #### G ELEAZAR #### Point of Care testing , Blood Cultureon 07-22-2023 Bacteria identified Cx Nom (Bld) NO GROWTH 5 DAYS PERFORMED BY: [place] [address] PATHOLOGIST GENERAL SURGEON FREDA ALCAZAR M.D. Normal [facility] Comment on above: Performed By: #### L SHERRIE PURILD #### [address] Bacteria identified Cx Nom (Bld) NO GROWTH 5 DAYS PERFORMED BY: [place] [address] PATHOLOGIST GENERAL SURGEON FREDA ALCAZAR M.D. Normal [facility] Comment on above: Performed By: #### L PHUC PURI #### [address] Glucose Poct Glucometerson 0 07-22-2023 Glucose [Mass/Vol] 190 mg/dL Normal [facility] Comment on above: Result Comment: [place] Glucose Reference Range is dependent on time and content of last meal. Glucose of more than 200 mg/dL in a nonstressed, ambulatory subject supports the diagnosis of Diabetes Mellitus. PERFORMED BY: [place] [address] PATHOLOGIST GENERAL SURGEON FREDA ALCAZAR M.D. Performed By: #### L SHERRIE PURILD #### [place] [id number] [facility] Glucose [Mass/Vol] 194 mg/dL Normal [facility] Comment on above: Result Comment: [place] Glucose Reference Range is dependent on time and content of last meal. Glucose of more than 200 mg/dL in a nonstressed, ambulatory subject supports the diagnosis of Diabetes Mellitus. PERFORMED BY: [place] [address] PATHOLOGIST GENERAL SURGEON FREDA ALCAZAR M.D. Performed By: #### L PHUC PURI #### [address] Commemt1 Glu2: Cleaned Meter Normal [facility] Comment on above: Result Comment: PERF ORMED BY: [place] [address] PATHOLOGIST GENERAL SURGEON FREDA ALCAZAR M.D. Performed By: #### L PHUC PURI #### [address] Glucose [Mass/Vol] 215 mg/dL Normal [facility] Comment on above: Result Comment: [place] [facility] Glucose Reference Range is dependent on time and content of last meal. Glucose of more than 200 mg/dL in a nonstressed, ambulatory subject supports the diagnosis of Diabetes Mellitus. Performed By: #### L PHUC PURI #### [address] Glucose [Mass/Vol] 146 mg/dL Normal [facility] Comment on above: Result Comment: [place] [facility] Glucose Reference Range is dependent on time and content of last meal. Glucose of more than 200 mg/dL in a nonstressed, ambulatory subject supports the diagnosis of Diabetes Mellitus. PERFORMED BY: [place] [address] PATHOLOGIST GENERAL SURGEON FREDA ALCAZAR M.D. Performed By: #### G LULS #### Point of Care testing , Natriuretic peptide B [Mass/ Vol]Ordered By: Sarah Herron on 07-22-2023 Natriuretic peptide B (Bld) [Mass/Vol] 270.0 pg/mL 5-[address] [facility] Poikilocytosis [Presence] in Blood by Light microscopyOrdered By: Balbina Garzon on 07-22-2023 Poikilocytosis LM Ql (Bld) Slight [facility] Red blood cell stomatocyte d etectionOrdered By: Balbina Garzon on 07-22-2023 Stomatocytes LM Ql (Bld) Slight [facility] Scan and CBCon 07-22-2023 Anisocytosis Ql (Bld) Slight Normal [facility] Comment on above: Performed By: #### G LULS #### Point of Care testing , Basophils (Bld) [#/Vol] 0.2 10*3/uL Normal 0.0-0.2 [facility] Comment on above: Performed By: #### G LULS #### Point of Care testing , Basophils/100 WBC (Bld) 1.2 % Normal . [facility] Comment on above: Performed By: #### G LULS #### Point of Care testing , Eosinophils (Bld) [#/Vol] 0.3 10*3/uL Normal 0.0-0.45 [facility] Comment on above: Performed By: #### G LULS #### Point of Care testing , Eosinophils/100 WBC (Bld) 2.0 % Normal . [facility] Comment on above: Performed By: #### G LULS #### Point of Care testing , Erythrocyte distribution width (RBC) [Ratio] 15.6 % High 12.0-14.8 [facility] Comment on above: Performed By: #### G LULS #### Point of Care testing , Hematocrit (Bld) [Volume fraction] 40.8 % Normal 38.8-50.0 [facility] Comment on above: Performed By: #### G LULS #### Point of Care testing , Hemoglobin (Bld) [Mass/Vol] 12.3 g/dL Low 13.0-17.0 [facility] Comment on above: Performed By: #### G LULS #### Point of Care testing , Hypochromasia Moderate Normal [facility] Comment on above: Performed By: #### G LULS #### Point of Care testing , Lymphocytes (Bld) [#/Vol] 1.3 10*3/uL Normal 1.00-4.8 [facility] Comment on above: Performed By: #### G LULS #### Point of Care testing , Lymphocytes/100 WBC (Bld) 8.2 % Normal . [facility] Comment on above: Performed By: #### G LULS #### Point of Care testing , MCH (RBC) [Entitic mass] 25.6 pg Low 27.5-35.2 [facility] Comment on above: Performed By: #### G LULS #### Point of Care testing , MCV (RBC) [Entitic vol] 85.3 fL Normal 83.5-101 [facility] Comment on above: Performed By: #### G LULS #### Point of Care testing , Mean Corpuscular HGB Conc 30.0 g/dL Low 32.5-35.6 [facility] Comment on above: Performed By: #### G LULS #### Point of Care testing , Monocytes (Bld) [#/Vol] 1.1 10*3/uL High 0.0-0.8 [facility] Comment on above: Performed By: #### G LULS #### Point of Care testing , Monocytes/100 WBC (Bld) 6.8 % Normal . [facility] Comment on above: Performed By: #### G LULS #### Point of Care testing , Neutrophils (Bld) [#/Vol] 13.1 10*3/uL High 1.8-7.7 [facility] Comment on above: Performed By: #### G LULS #### Point of Care testing , Neutrophils/100 WBC (Bld) 81.8 % Normal . [facility] Comment on above: Performed By: #### G LULS #### Point of Care testing , NRBC% 0.0 /100{WBC} Normal 0-0.5 [facility] Comment on above: Performed By: #### G LULS #### Point of Care testing , Platelet Estimate Normal Normal Normal [facility] Comment on above: Performed By: #### G LULS #### Point of Care testing , Platelet mean volume (Bld) [Entitic vol] 7.8 fL Normal 6.6-10.1 [facility] Comment on above: Performed By: #### G LULS #### Point of Care testing , Platelet Morphology Normal Normal Normal [facility] Comment on above: Result Comment: PERF ORMED BY: [place] [address] [place] [address] PATHOLOGIST GENERAL SURGEON FREDA ALCAZAR M.D. Performed By: #### G LULS #### Point of Care testing , Platelets (Bld) [#/Vol] 330 10*3/uL Normal 150-450 [facility] Comment on above: Performed By: #### G LULS #### Point of Care testing , Poikilocytosis Slight Normal [facility] Comment on above: Performed By: #### G LULS #### Point of Care testing , Polychromasia Slight Normal [facility] Comment on above: Performed By: #### G LULS #### Point of Care testing , RBC (Bld) [#/Vol] 4.79 10*6/uL Normal 3.90-5.60 [facility] Comment on above: Performed By: #### G LULS #### Point of Care testing , Stomatocytes Slight Normal [facility] Comment on above: Performed By: #### G LULS #### Point of Care testing , WBC (Bld) [#/Vol] 16.1 10*3/uL High 4.1-10.5 [facility] Comment on above: Performed By: #### G LULS #### Point of Care testing , Vancomycin,Peakon 07-22-2023 Vancomycin,Peak 34.9 ug/mL Normal 20.0-40.0 [facility] Comment on above: Order Comment: Comme nt ?DRAW 1 HOUR AFTER INFUSION COMPLETES Date of last dose?: [id number] Time of last dose?: 230 Result Comment: Last dose: - PERFORMED BY: [facility] [address] [place] [address] PATHOLOGIST GENERAL SURGEON FREDA ALCAZAR M.D. Performed By: #### G LULS #### Point of Care testing , Vancomycin,Troughon 07-22-19 Vancomycin,Trough 16.9 ug/mL Normal 10.0-20.0 [facility] Comment on above: Result Comment: Last dose: - PERFORMED BY: [address] [place] [address] PATHOLOGIST GENERAL SURGEON FREDA ALCAZAR M.D. Performed By: #### G ELEAZAR #### Point of Care testing , Basic Metabolic Panelon 0 Anion gap [Moles/Vol] 10.5 mmol/L Normal 6.0-15.0 [facility] Comment on above: Performed By: #### L PHUC PURI #### [facility] [address] [place] [address] [place] Calcium [Mass/Vol] 8.4 mg/dL Low 8.6-10.3 [facility] Comment on above: Performed By: #### L ACTPHUC VELASCO #### [facility] [address] [place] [address] [place] Chloride [Moles/Vol] 101 mmol/L Normal 98-107 [facility] Comment on above: Performed By: #### L PHUC PURI #### [facility] [address] [place] [address] [place] CO2 [Moles/Vol] 30.8 mmol/L Normal 21.0-31.0 [facility] Comment on above: Performed By: #### L PHUC PURI #### [facility] [address] [place] [id number] [place] Creatinine [Mass/Vol] 1.26 mg/dL Normal 0.70-1.30 [facility] Comment on above: Performed By: #### L ACTSHERRIE VELASCOLD #### [place] [address] [place] Creatinine Clr Calc Pharmacy 74.56 Normal [facility] Comment on above: Result Comment: PERF ORMED BY: [place] [address] PATHOLOGIST GENERAL SURGEON FREDA ALCAZAR M.D. Performed By: #### L PHUC PURI #### [place] [address] [place] GFR/1.73 sq M.predicted MDRD (S/P/Bld) [Vol rate/Area] 58.743 mL/min/{1.73_m2} Normal [facility] Comment on above: Performed By: #### L PHUC PURI #### [facility] [address] Glucose [Mass/Vol] 210 mg/dL High 70-100 [facility] Comment on above: Result Comment: [facility] Glucose Reference Range is dependent on time and content of last meal. Glucose of more than 200 mg/dL in a nonstressed, ambulatory subject supports the diagnosis of Diabetes Mellitus. ADA recommended reference range Performed By: #### L PHUC PURI #### [address] Potassium [Moles/Vol] 4.3 mmol/L Normal 3.5-5.1 [facility] Comment on above: Performed By: #### L PHUC PURI #### [address] Sodium [Moles/Vol] 138 mmol/L Normal 136-145 [facility] Comment on above: Performed By: #### L PHUC PURI #### [address] Urea nitrogen [Mass/Vol] 16 mg/dL Normal 7-25 [facility] Comment on above: Performed By: #### L PHUC PURI #### [address] angio neckon 07-21-2023 CT angio neck [facility] [place] [address] [place] [address] CT Scan Report Signed Patient: Corona Wharton MR#: [id number] 1 : 1945 Acct:[id number] Age/Sex: 78 / M ADM Date: 07/19/23 Loc: Room: [address] [place] [address] Type: ADM IN Attending Dr: Luigi Napoles DO Copies to: DO Luigi Moore DO Ordering Provider: Matthew Bean DO Date of Service: 07/21/23 CT/CT angio head: stroke ([id number]) CT/CT angio neck: stroke CT angio head, CT angio neck 07/21/2023 12:05 PM SIGNS AND SYMPTOMS: Follow-up CVA. Right-sided weakness. TECHNIQUE: Multi-detector CT angiography axial slices of the head and neck were obtained during intravenous administration of IV contrast material. Sagittal, coronal, and 3-D reconstructions were performed and viewed on a separate workstation. CT was performed with one or more of the following dose reduction techniques: Automated exposure control, adjustment of the mA and/or kV according to patient size, or use of iterative reconstruction technique. Stenoses were measured using the NASCET criteria. COMPARISON: CT brain 07/19/2023. MRI brain 07/20/2023 FINDINGS: CTA HEAD: Posterior inferior cerebellar arteries : patent Basilar artery: patent Superior cerebellar arteries: patent Posterior cerebral arteries: patent Intracranial segments of the internal carotid arteries: Mild calcification without critical stenosis or occlusion. MCA: patent YULI: patent Anterior Communicating artery: patent Posterior Communicating arteries: Left posterior communicating artery is patent. Right appears absent. CTA NECK: Vertebral arteries : Normal origins. Patent throughout their course. Common Carotid arteries: Suboptimal evaluation due to motion. No definitive critical stenosis or occlusion is seen. Internal Carotid arteries: Suboptimal evaluation of motion. There is mild calcification involving the carotid bulbs causing no significant stenosis or occlusion. Internal carotid arteries appear tortuous without critical stenosis or occlusion. No gross central airway mass is noted. No soft tissue swelling or lymphadenopathy is seen. Remote infarct involving the cerebellum. Intraorbital contents appear grossly unremarkable. Visualized lung apices demonstrate emphysematous change. Osseous structures demonstrate cervical spondylosis. 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 CT/CT angio head IMPRESSION: No evidence of critical stenosis, aneurysmal dilatation, dissection or occlusion. Impression dictated by: Kuldeep Yost Jr., D.OFausto07/21/2023 2:40 PM Dictation Location: [place] [address] Transcribed By: [facility] 07/21/23 1440 Dictated By: Kuldeep Yost Jr, DO 07/21/23 1432 Signed By: 07/21/23 1440 Normal [facility] Complete Blood Count Auto Di ffon 07-21-2023 Basophils (Bld) [#/Vol] 0.1 10*3/uL Normal 0.0-0.2 [facility] Comment on above: Result Comment: PERF ORMED BY: [facility] [address] [place] [address] PATHOLOGIST GENERAL SURGEON FREDA ALCAZAR M.D. Performed By: #### L ACTPHUC VELASCO #### [address] Basophils/100 WBC (Bld) 1.0 % Normal . [facility] Comment on above: Performed By: #### L ACTPHUC VELASCO #### [address] Eosinophils (Bld) [#/Vol] 0.5 10*3/uL High 0.0-0.45 [facility] Comment on above: Performed By: #### L PHUC PURI #### [address] Eosinophils/100 WBC (Bld) 3.7 % Normal . [facility] Comment on above: Performed By: #### L PHUC PURI #### [address] Erythrocyte distribution width (RBC) [Ratio] 15.6 % High 12.0-14.8 [facility] Comment on above: Performed By: #### L PHUC PURI #### [address] Hematocrit (Bld) [Volume fraction] 42.7 % Normal 38.8-50.0 [facility] Comment on above: Performed By: #### L ACTPHUC VELASCO #### [address] Hemoglobin (Bld) [Mass/Vol] 12.8 g/dL Low 13.0-17.0 [facility] Comment on above: Performed By: #### L ACTPHUC VELASCO #### [address] Lymphocytes (Bld) [#/Vol] 1.9 10*3/uL Normal 1.00-4.8 [facility] Comment on above: Performed By: #### L ACTPHUC VELASCO #### [address] Lymphocytes/100 WBC (Bld) 13.7 % Normal . [facility] Comment on above: Performed By: #### L PHUC PURI #### [address] MCH (RBC) [Entitic mass] 25.9 pg Low 27.5-35.2 [facility] Comment on above: Performed By: #### L PHUC PURI #### [address] MCV (RBC) [Entitic vol] 86.1 fL Normal 83.5-101 [facility] Comment on above: Performed By: #### L PHUC PURI #### [address] Mean Corpuscular HGB Conc 30.1 g/dL Low 32.5-35.6 [facility] Comment on above: Performed By: #### L PHUC PURI #### [address] Monocytes (Bld) [#/Vol] 1.0 10*3/uL High 0.0-0.8 [facility] Comment on above: Performed By: #### L PHUC PURI #### [address] Monocytes/100 WBC (Bld) 7.1 % Normal . [facility] Comment on above: Performed By: #### L PHUC PURI #### [address] Neutrophils (Bld) [#/Vol] 10.6 10*3/uL High 1.8-7.7 [facility] Comment on above: Performed By: #### L PHUC PURI #### [address] Neutrophils/100 WBC (Bld) 74.5 % Normal . [facility] Comment on above: Performed By: #### L PHUC PURI #### [address] NRBC% 0.1 /100{WBC} Normal 0-0.5 [facility] Comment on above: Performed By: #### L PHUC PURI #### [address] Platelet mean volume (Bld) [Entitic vol] 7.9 fL Normal 6.6-10.1 [facility] Comment on above: Performed By: #### L PHUC PURI #### [address] Platelets (Bld) [#/Vol] 312 10*3/uL Normal 150-450 [facility] Comment on above: Performed By: #### L PHUC PURI #### [address] RBC (Bld) [#/Vol] 4.95 10*6/uL Normal 3.90-5.60 [facility] Comment on above: Performed By: #### L PHUC PURI #### [address] WBC (Bld) [#/Vol] 14.2 10*3/uL High 4.1-10.5 [facility] Comment on above: Performed By: #### L PHUC PURI #### [address] Glucose Poct Glucometerson 0 07-21-2023 Glucose [Mass/Vol] 177 mg/dL Normal [facility] Comment on above: Result Comment: [facility] Glucose Reference Range is dependent on time and content of last meal. Glucose of more than 200 mg/dL in a nonstressed, ambulatory subject supports the diagnosis of Diabetes Mellitus. PERFORMED BY: [place] [address] PATHOLOGIST GENERAL SURGEON FREDA ALCAZAR M.D. Performed By: #### L PHUC PURI #### [address] Commemt1 Glu2: Cleaned Meter Normal [facility] Comment on above: Result Comment: PERF ORMED BY: [place] [address] PATHOLOGIST GENERAL SURGEON FREDA ALCAZAR M.D. Performed By: #### G LULS #### Point of Care testing , Glucose [Mass/Vol] 179 mg/dL Normal [facility] Comment on above: Result Comment: [place] [facility] Glucose Reference Range is dependent on time and content of last meal. Glucose of more than 200 mg/dL in a nonstressed, ambulatory subject supports the diagnosis of Diabetes Mellitus. Performed By: #### G LULS #### Point of Care testing , Commemt1 Glu2: Cleaned Meter Normal [facility] Comment on above: Result Comment: PERF ORMED BY: [place] [address] PATHOLOGIST GENERAL SURGEON FREDA ALCAZAR M.D. Performed By: #### L SHERRIE PURILD #### [address] Glucose [Mass/Vol] 240 mg/dL Normal [facility] Comment on above: Result Comment: [place] [facility] Glucose Reference Range is dependent on time and content of last meal. Glucose of more than 200 mg/dL in a nonstressed, ambulatory subject supports the diagnosis of Diabetes Mellitus. Performed By: #### L SHERRIE PURILD #### [address] Commemt1 Glu2: Cleaned Meter Normal [facility] Comment on above: Result Comment: PERF ORMED BY: [place] [phone] PATHOLOGIST GENERAL SURGEON FREDA ALCAZAR M.D. Performed By: #### G LULS #### Point of Care testing , Glucose [Mass/Vol] 181 mg/dL Normal [facility] Comment on above: Result Comment: [place] [facility] Glucose Reference Range is dependent on time and content of last meal. Glucose of more than 200 mg/dL in a nonstressed, ambulatory subject supports the diagnosis of Diabetes Mellitus. Performed By: #### G LULS #### Point of Care testing , MR head/brain wo conon 04-06 -2024 MR head/brain wo con [facility] [address] [place] [address] MRI Report Signed Patient: Corona Wharton MR#: [id number] 1 : 1945 Acct:[id number] Age/Sex: 78 / M ADM Date: 07/19/23 Loc: Room: [address] [place] [address] Type: ADM IN Attending Dr: Luigi Napoles DO Copies to: DO Luigi Moore DO Ordering Provider: Matthew Bean DO Date of Service: 07/20/23 MR/MR head/brain wo con: Old stroke, new lateralized symptoms EXAMINATION: MRI OF THE BRAIN WITHOUT CONTRAST CLINICAL HISTORY: Altered mental status. Weakness. COMPARISON: CT brain 07/19/2023. MRI brain 2015 TECHNIQUE: Multiecho, multiplanar imaging of the brain was performed without enhancement. FINDINGS: There appears to be restricted diffusion involving the inferior aspect of the cerebellar hemispheres with associated T2 and T2 FLAIR signal suggestive of areas of subacute ischemia. No evidence of blood products are seen on GRE imaging. Cortical atrophy with severe chronic microvascular ischemic changes are noted extending into the midbrain, monie and cerebellum which appears to have progressed since 2016. Prior infarct left cerebellar hemisphere and right monie. Cavum septum verge is present which is a normal variant. Intraorbital contents appear grossly unremarkable. No air-fluid levels are seen within the paranasal sinuses. MR/MR head/brain wo con IMPRESSION: THERE APPEARS TO BE SUBACUTE ISCHEMIA INVOLVING THE INFERIOR ASPECT OF THE CEREBELLAR HEMISPHERES WITH ASSOCIATED RESTRICTED DIFFUSION AND ABNORMAL T2 AND T2 FLAIR SIGNAL. THIS APPEARS TO BE SUPERIMPOSED ON CORTICAL ATROPHY AND SEVERE CHRONIC MICROVASCULAR ISCHEMIC CHANGES WHICH HAVE PROGRESSED SINCE 2016. 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 Findings were discussed with Arelis of the hospitalist service 9:07 AM 07/21/2023. Impression dictated by: Kuldeep Yost Jr., D.O.07/21/2023 9:07 AM Dictation Location: [place] [address] Transcribed By: [facility] 07/21/23 0907 Dictated By: Kuldeep Yost Jr, DO 07/21/23 0856 Signed By: 07/21/23 0907 Normal [facility] Magnesiumon 07-21-2023 Magnesium [Mass/Vol] 1.8 mg/dL Low 1.9-2.7 [facility] Comment on above: Result Comment: PERF ORMED BY: [place] [address] PATHOLOGIST GENERAL SURGEON FREDA ALCAZAR M.D. Performed By: #### L PHUC PURI #### [address] A1C with Estimated Average G tran 07-20-2023 Glucose [Mass/Vol] 272 mg/dL Normal [facility] Comment on above: Result Comment: PERF ORMED BY: [place] [address] PATHOLOGIST GENERAL SURGEON FREDA ALCAZAR M.D. Performed By: #### A DDONUAPLUS, CUU #### [address] HbA1c (Bld) [Mass fraction] 11.1 % High 4.3-5.6 [facility] Comment on above: Result Comment: Incr eased risk for diabetes: 5.7 - 6.4 diabetes: >6.4 glycemic control for adults with diabetes: <7.0 Performed By: #### A DDONUAPLUS, CUU #### [address] Alanine aminotransferase [En zymatic activity/volume] in Serum or PlasmaOrdered By: Balbina Garzon on 07-20-2023 ALT [Catalytic activity/Vol] 15 U/L 7-[address] [facility] Albumin [Mass/volume] in Ser um or Plasma by Bromocresol green (BCG) dye binding methoOrdered By: Balbina Garzon on 07-20-2023 Albumin BCG dye [Mass/Vol] 3.2 g/dL 3.5-5.[address] [facility] Alkaline phosphatase [Enzyma tic activity/volume] in Serum or PlasmaOrdered By: Balbina Garzon on 07-20-2023 ALP [Catalytic activity/Vol] 73 U/L 34-[address] [facility] Aspartate aminotransferase [ Enzymatic activity/volume] in Serum or PlasmaOrdered By: Balbina Garzon on 07-20-2023 AST [Catalytic activity/Vol] 21 U/L 13-[address] [facility] Bilirubin.total [Mass/volume ] in Serum or PlasmaOrdered By: Balbina Garzon on 07-20-2023 Bilirubin [Mass/Vol] 0.5 mg/dL 0.3-1.0 [facility] Blood Cultureon 07-20-2023 Bacteria identified Cx Nom (Bld) NO GROWTH 5 DAYS PERFORMED BY: [place] [address] PATHOLOGIST GENERAL SURGEON FREDA ALCAZAR M.D. Normal [facility] Comment on above: Performed By: #### L ACTIC, CUBLD #### [facility] [address] [place] [address] Bacteria identified Cx Nom (Bld) NO GROWTH 5 DAYS PERFORMED BY: [place] [address] PATHOLOGIST GENERAL SURGEON FREDA ALCAZAR M.D. Normal [facility] Comment on above: Performed By: #### L ACTIC, CUBLD #### [facility] [address] [place] [address] Cholesterol [Mass/volume] in Serum or PlasmaOrdered By: Balbina Garzon on 07-20-2023 Cholesterol [Mass/Vol] 212 mg/dL 140-200 [facility] Comment on above: Chol less than 200 m g/dl low riskChol 201-239 mg/dl borderline riskChol 240 mg/dl and greater high risk Cholesterol in LDL Calc [Mas s/Vol]Ordered By: Balbina Garzon on 07-20-2023 Cholesterol in LDL [Mass/Vol] 140 mg/dL 0-[address] [facility] Comment on above: LDL ATP III CLASSIFI CATIONLDL less than 100 mg/dL OptimalLDL 100-129 mg/dL Near or above optimalLDL 130-159 mg/dL Borderline highLDL 160-189 mg/dL HighLDL greater than 189 mg/dL Very high Cholesterol in VLDL Calc [Ma ss/Vol]Ordered By: Balbina Garzon on 07-20-2023 Cholesterol in VLDL [Mass/Vol] 26 mg/dL [facility] Complete Blood Count Auto Di ffon 07-20-2023 Basophils (Bld) [#/Vol] 0.2 10*3/uL Normal 0.0-0.2 [facility] Comment on above: Result Comment: PERF ORMED BY: [place] [address] PATHOLOGIST GENERAL SURGEON FREDA ALCAZAR M.D. Performed By: #### L PHUC PURI #### [place] [address] [place] Basophils/100 WBC (Bld) 1.3 % Normal . [facility] Comment on above: Performed By: #### L PHUC PURI #### [address] Eosinophils (Bld) [#/Vol] 0.6 10*3/uL High 0.0-0.45 [facility] Comment on above: Performed By: #### L PHUC PURI #### [place] [address] [place] Eosinophils/100 WBC (Bld) 4.1 % Normal . [facility] Comment on above: Performed By: #### L PHUC PURI #### [address] Erythrocyte distribution width (RBC) [Ratio] 15.4 % High 12.0-14.8 [facility] Comment on above: Performed By: #### L PHUC PURI #### [place] [address] [place] Hematocrit (Bld) [Volume fraction] 39.6 % Normal 38.8-50.0 [facility] Comment on above: Performed By: #### L PHUC PURI #### [address] Hemoglobin (Bld) [Mass/Vol] 12.2 g/dL Low 13.0-17.0 [facility] Comment on above: Performed By: #### L PHUC PURI #### [address] Lymphocytes (Bld) [#/Vol] 2.2 10*3/uL Normal 1.00-4.8 [facility] Comment on above: Performed By: #### L ACTPHUC VELASCO #### [address] Lymphocytes/100 WBC (Bld) 15.1 % Normal . [facility] Comment on above: Performed By: #### L ACTSHERRIE VELASCOLD #### [address] MCH (RBC) [Entitic mass] 26.5 pg Low 27.5-35.2 [facility] Comment on above: Performed By: #### L ACTPHUC VELASCO #### [address] MCV (RBC) [Entitic vol] 85.8 fL Normal 83.5-101 [facility] Comment on above: Performed By: #### L PHUC PURI #### [address] Mean Corpuscular HGB Conc 30.9 g/dL Low 32.5-35.6 [facility] Comment on above: Performed By: #### L ACTPHUC VELASCO #### [address] Monocytes (Bld) [#/Vol] 1.1 10*3/uL High 0.0-0.8 [facility] Comment on above: Performed By: #### L ACTPHUC VELASCO #### [place] [address] [place] Monocytes/100 WBC (Bld) 7.5 % Normal . [facility] Comment on above: Performed By: #### L ACTSHERRIE VELASCOLD #### [address] Neutrophils (Bld) [#/Vol] 10.4 10*3/uL High 1.8-7.7 [facility] Comment on above: Performed By: #### L ACTPHUC VELASCO #### [address] Neutrophils/100 WBC (Bld) 72.0 % Normal . [facility] Comment on above: Performed By: #### L ACTPHUC VELASCO #### [address] NRBC% 0.4 /100{WBC} Normal 0-0.5 [facility] Comment on above: Performed By: #### L ACTSHERRIE VELASCOLD #### [address] Platelet mean volume (Bld) [Entitic vol] 8.6 fL Normal 6.6-10.1 [facility] Comment on above: Performed By: #### L ACTPHUC VELASCO #### [address] Platelets (Bld) [#/Vol] 345 10*3/uL Normal 150-450 [facility] Comment on above: Performed By: #### L ACTPHUC VELASCO #### [address] RBC (Bld) [#/Vol] 4.61 10*6/uL Normal 3.90-5.60 [facility] Comment on above: Performed By: #### L ACTSHERRIE VELASCOLD #### [address] WBC (Bld) [#/Vol] 14.5 10*3/uL High 4.1-10.5 [facility] Comment on above: Performed By: #### L ACTSHERRIE VELASCOLD #### [address] Comprehensive Metabolic Pane jeanna 07-20-2023 Albumin [Mass/Vol] 3.2 g/dL Low 3.5-5.7 [facility] Comment on above: Performed By: #### L ACTICSHERRIELD #### [address] Albumin/Globulin [Mass ratio] 1.3 {ratio} Normal [facility] Comment on above: Performed By: #### L ACTIC CUBLD #### [facility] [address] [place] [id number] [facility] ALP [Catalytic activity/Vol] 73 U/L Normal 34-104 [facility] Comment on above: Performed By: #### L ACTIC CUBLD #### [facility] [address] [place] [id number] [facility] ALT [Catalytic activity/Vol] 15 U/L Normal 7-52 [facility] Comment on above: Performed By: #### L ACTICSHERRIELD #### [facility] [address] Anion gap [Moles/Vol] 9.1 mmol/L Normal 6.0-15.0 [facility] Comment on above: Performed By: #### L ACTIC CUBLD #### [address] AST [Catalytic activity/Vol] 21 U/L Normal 13-39 [facility] Comment on above: Performed By: #### L ACTSHERRIE VELASCOLD #### [place] [address] [place] Bilirubin [Mass/Vol] 0.5 mg/dL Normal 0.3-1.0 [facility] Comment on above: Performed By: #### L ACTROD CUBLD #### [place] [id number] [place] Calcium [Mass/Vol] 8.7 mg/dL Normal 8.6-10.3 [facility] Comment on above: Performed By: #### L ACTSHERRIE VELASCOLD #### [place] [id number] [place] Chloride [Moles/Vol] 102 mmol/L Normal 98-107 [facility] Comment on above: Performed By: #### L ACTIC CUBLD #### [place] [id number] [place] CO2 [Moles/Vol] 30.1 mmol/L Normal 21.0-31.0 [facility] Comment on above: Performed By: #### L PHUC PURI #### [facility] [address] Creatinine [Mass/Vol] 1.30 mg/dL Normal 0.70-1.30 [facility] Comment on above: Performed By: #### L PHUC PURI #### [facility] [address] [place] [address] [place] Creatinine Clr Calc Pharmacy 72.15 Normal [facility] Comment on above: Performed By: #### L PHUC PURI #### [facility] [address] [place] [address] [place] GFR/1.73 sq M.predicted MDRD (S/P/Bld) [Vol rate/Area] 56.581 mL/min/{1.73_m2} Normal [facility] Comment on above: Performed By: #### L PHUC PURI #### [address] Globulin (S) [Mass/Vol] 2.5 g/dL Normal [facility] Comment on above: Performed By: #### L PHUC PURI #### [address] Glucose [Mass/Vol] 228 mg/dL High 70-100 [facility] Comment on above: Result Comment: [facility] Glucose Reference Range is dependent on time and content of last meal. Glucose of more than 200 mg/dL in a nonstressed, ambulatory subject supports the diagnosis of Diabetes Mellitus. ADA recommended reference range Performed By: #### L PHUC PURI #### [address] Potassium [Moles/Vol] 4.2 mmol/L Normal 3.5-5.1 [facility] Comment on above: Performed By: #### L PHUC PURI #### [address] Protein [Mass/Vol] 5.7 g/dL Low 6.4-8.9 [facility] Comment on above: Performed By: #### L PHUC PURI #### [facility] [address] Sodium [Moles/Vol] 137 mmol/L Normal 136-145 [facility] Comment on above: Performed By: #### L PHUC PURI #### [facility] [address] Urea nitrogen [Mass/Vol] 17 mg/dL Normal 7-25 [facility] Comment on above: Performed By: #### L PHUC PURI #### [facility] [address] echo transthoracicon [facility] echo transthoracic [facility] [address] [place] [address] Echocardiogram Signed Patient: Corona Whatron MR#: [id number] 1 : 1945 Acct:[id number] Age/Sex: 78 / M ADM Date: 07/19/23 Loc: Room: [address] [place] [address] Type: ADM IN Attending Dr: Luigi Napoles DO Ordering Provider: Balbina Grazon DO Date of Service: 07/20/2309/06/658 [facility] echo transthoracic: edema Copies to: hTom Teran MD, [facility] Balbina Garzon DO BSA: 2.7 m2 BP: 137/78 mmHg HR: 99 Reason For Study: edema History: DM. HTN. HLD. CVA. Morbid Obesity. Former Smoker. Interpretation Summary Moderate concentric left ventricular hypertrophy. Left ventricular systolic function is normal. Ejection Fraction = 55-60%. There is left ventricular diastolic dysfunction. There is trace tricuspid regurgitation. The right ventricular systolic pressure is 42 mmHg. Right ventricular systolic pressure is consistent with mild pulmonary hypertension. Procedure/Quality: A two-dimensional transthoracic echocardiogram with color flow, Doppler and injection of contrast agent Definity was performed. The study was technically fair in quality. Left Ventricle: Moderate concentric left ventricular hypertrophy. Left ventricular systolic function is normal. Ejection Fraction = 55-60%. There is left ventricular diastolic dysfunction. Left Atrium: The left atrium appears normal in size. Right Atrium: The right atrium appears normal in size. Right Ventricle: The right ventricular size, thickness and function are normal. Aortic Valve: The aortic valve is mildly sclerotic. Mitral Valve: The mitral valve is normal. Tricuspid Valve: The tricuspid valve is normal in structure. There is trace tricuspid regurgitation. The right ventricular systolic pressure is 42 mmHg. Right ventricular systolic pressure is consistent with mild pulmonary hypertension. Pulmonic Valve: The pulmonic valve is not well visualized. Arteries: The aortic root is normal size. Pericardium/Pleura: No pericardial effusion seen. There is no pleural effusion. IVC/Hepatic Veins: The IVC is normal in size with an inspiratory collapse of greater then 50%, suggesting normal right atrial pressure. Miscellaneous: No thrombus, vegetation or mass is seen. Measurements with Normals IVSd: 2.3 cm (0.7-1.1 cm)LVIDd: 4.1 cm (3.7-5.4 cm) LVPWd: 1.6 cm (0.7-1.1 cm)LVIDs: 3.0 cm (2.3-3.6 cm) LA dimension: 3.2 cm (2.3-4.0 cm)Ao root diam: 3.4 cm(2.0-3.6 cm) asc Aorta Diam: 3.5 cm(2.1-3.4cm) Doppler with Normals RVSP(TR): 42.5 mmHg(18-35mmHg) MMode/2D Measurements Calculations RV S Kris: FS: 27.8 % Ao root area: LVOT diam: 2.1 cm 13.3 cm/sec EDV(Teich): 8.9 cm2 LVOT area: 76.0 ml 3.3 cm2 ESV(Teich): 34.7 ml EF(Teich): 54.3 % Doppler Measurements Calculations MV V2 max: 189.4 cm/sec TV max P.0 mmHg TR max kris: 306.2 cm/sec MV max P.7 mmHg TR max P.5 mmHg MV V2 mean: 137.3 cm/sec RAP systole: 5.0 mmHg MV mean P.4 mmHg MV V2 VTI: 30.1 cm Transcribed By: KRISTAL Performed At: 07/20/23 1347 Signed By: Thom Teran MD, [facility] 07/20/23 1502 Normal [facility] Globulin Calc (S) [Mass/Vol] Ordered By: Balbina Garzon on 07-20-2023 Globulin (S) [Mass/Vol] 2.5 g/dL [facility] Glucose Poct Glucometerson 0 07-20-2023 Glucose [Mass/Vol] 201 mg/dL Normal [facility] Phys[facility] Comment on above: Result Comment: [place] om Glucose Reference Range is dependent on time and content of last meal. Glucose of more than 200 mg/dL in a nonstressed, ambulatory subject supports the diagnosis of Diabetes Mellitus. PERFORMED BY: [place] [address] PATHOLOGIST GENERAL SURGEON FREDA ALCAZAR M.D. Performed By: #### G LULS #### Point of Care testing , Commemt1 Glu2: Cleaned Meter Normal [facility] Comment on above: Result Comment: PERF ORMED BY: [address] [place] [address] PATHOLOGIST GENERAL SURGEON FREDA ALCAZAR M.D. Performed By: #### G LULS #### Point of Care testing , Glucose [Mass/Vol] 205 mg/dL Normal [facility] Comment on above: Result Comment: [place] om Glucose Reference Range is dependent on time and content of last meal. Glucose of more than 200 mg/dL in a nonstressed, ambulatory subject supports the diagnosis of Diabetes Mellitus. Performed By: #### G LULS #### Point of Care testing , Commemt1 Glu2: Cleaned Meter Normal [facility] Comment on above: Result Comment: PERF ORMED BY: [place] [id number] PATHOLOGIST GENERAL SURGEON FREDA ALCAZAR M.D. Performed By: #### G LULS #### Point of Care testing , Glucose [Mass/Vol] 211 mg/dL Normal [facility] Comment on above: Result Comment: [place] om Glucose Reference Range is dependent on time and content of last meal. Glucose of more than 200 mg/dL in a nonstressed, ambulatory subject supports the diagnosis of Diabetes Mellitus. Performed By: #### G LULS #### Point of Care testing , Commemt1 Glu2: Cleaned Meter Normal [facility] Comment on above: Result Comment: PERF ORMED BY: [facility] [address] [facility] [place] [address] PATHOLOGIST GENERAL SURGEON FREDA ALCAZAR M.D. Performed By: #### G LULS #### Point of Care testing , Glucose [Mass/Vol] 203 mg/dL Normal [facility] Comment on above: Result Comment: [place] om Glucose Reference Range is dependent on time and content of last meal. Glucose of more than 200 mg/dL in a nonstressed, ambulatory subject supports the diagnosis of Diabetes Mellitus. Performed By: #### G LULS #### Point of Care testing , Glucose mean value [Mass/vol ume] in Blood Estimated from glycated hemoglobinOrdered By: Balbina Garzon on 07-20-2023 Average glucose Estimated from glycated hemoglobin (Bld) [Mass/Vol] 272 mg/dL [facility] Hemoglobin A1c percentageOrd ered By: Balbina Garzon on 07-20-2023 HbA1c (Bld) [Mass fraction] 11.1 % 4.3-5.[address] [facility] Comment on above: Increased risk for d iabetes: 5.7 - 6.4diabetes: >6.4glycemic control for adults with diabetes: <7.0 Lactic Acidon 07-20-2023 Lactate [Moles/Vol] 1.0 mmol/L Normal 0.5-2.2 [facility] Comment on above: Result Comment: PERF ORMED BY: [facility] [address] [place] [address] PATHOLOGIST GENERAL SURGEON FREDA ALCAZAR M.D. Performed By: #### L PHUC PURI #### [facility] [address] [place] [id number] [facility] Lipid Panelon 07-20-2023 Cholesterol [Mass/Vol] 212 mg/dL High 140-200 [facility] Comment on above: Result Comment: Chol less than 200 mg/dl low risk Chol 201-239 mg/dl borderline risk Chol 240 mg/dl and greater high risk Performed By: #### A DDONUAPLUS, CUU #### [facility] [address] [place] [id number] [facility] Cholesterol in HDL [Mass/Vol] 45 mg/dL Normal 23-92 [facility] Comment on above: Result Comment: HDL CHOL ATP-III CLASSIFICATION Cardiovascular Risk HDL > or equal to 60 mg/dL LOW HDL < 40 mg/dL HIGH Performed By: #### A DDONUAPLUS, CUU #### [address] Cholesterol.total/Chol esterol in HDL [Mass ratio] 4.7 {ratio} Normal <5.0 [facility] Comment on above: Result Comment: PERF ORMED BY: [place] [address] PATHOLOGIST GENERAL SURGEON FREDA ALCAZAR M.D. Performed By: #### A DDONUAPLUS, CUU #### [address] LDL Cholesterol,Calculated 140 mg/dL High 0-100 [facility] Comment on above: Result Comment: LDL ATP III CLASSIFICATION LDL less than 100 mg/dL Optimal LDL 100-129 mg/dL Near or above optimal LDL 130-159 mg/dL Borderline high LDL 160-189 mg/dL High LDL greater than 189 mg/dL Very high Performed By: #### A DDONUAPLUS, CUU #### [facility] [address] [place] [address] [place] Triglyceride w/Reflex 134 mg/dL Normal 0-149 [facility] Comment on above: Result Comment: TRIG ATP III CLASSIFICATION TRIG less than 150 mg/dL Normal TRIG 150-199 mg/dL Borderline high TRIG 200-500 mg/dL High TRIG greater than 500 mg/dL Very high Standard traceable to the Center for Disease Conrtrol and Prevention (CDC) test method. Performed By: #### A DDONUAPLUS, CUU #### [facility] [address] VLDL CHOLESTEROL 26 mg/dL Normal [facility] Comment on above: Performed By: #### A DDONUAPLUS, CUU #### [facility] [address] Magnesiumon 07-20-2023 Magnesium [Mass/Vol] 1.8 mg/dL Low 1.9-2.7 [facility] Comment on above: Performed By: #### A DDONUAPLUS, CUU #### [facility] [address] Protein [Mass/volume] in Ser um or PlasmaOrdered By: Balbina Garzon on 07-20-2023 Protein [Mass/Vol] 5.7 g/dL 6.4-8.9 [facility] Serum or plasma albumin/glob ulin mass ratioOrdered By: Balbina Garzon on 07-20-2023 Albumin/Globulin [Mass ratio] 1.3 {ratio} [facility] Serum or plasma high density lipoprotein (HDL) cholesterol measurementOrdered By: Balbina Garzon on 07-20-2023 Cholesterol in HDL [Mass/Vol] 45 mg/dL 23- [facility] Comment on above: HDL CHOL ATP-III CLA SSIFICATION Cardiovascular RiskHDL > or equal to 60 mg/dL LOWHDL < 40 mg/dL HIGH Serum or plasma total choles terol/high density lipoprotein (HDL) cholesterol mass ratOrdered By: Balbina Garzon on 07-20-2023 Cholesterol.total/Chol esterol in HDL [Mass ratio] 4.7 {ratio} <5.[address] [facility] Triglyceride [Mass/volume] i n Serum or PlasmaOrdered By: Balbina Garzon on 07-20-2023 Triglyceride [Mass/Vol] 134 mg/dL 0-[address] [facility] Comment on above: TRIG ATP III CLASSIF ICATIONTRIG less than 150 mg/dL NormalTRIG 150-199 mg/dL Borderline highTRIG 200-500 mg/dL High TRIG greater than 500 mg/dL Very highStandard traceable to the Center for Disease Conrtrol and Prevention (CDC) test method. XR humerus RT*on 07-20-2023 XR humerus RT* [facility] [address] XRay Report Signed Patient: Corona Wharton MR#: [id number] 1 : 1945 Acct:[id number] Age/Sex: 78 / M ADM Date: 07/19/23 Loc: Room: [address] [place] [address] Type: ADM IN Attending Dr: Luigi Napoles DO Copies to: DO Luigi Moore DO Ordering Provider: Matthew Bean DO Date of Service: 07/20/23 XR/XR humerus RT*: MRI clearance 2 views right humerus plain film COMPARISON: None HISTORY: MRI clearance. Acute findings: None Degenerative change: Unremarkable Soft tissue findings: Unremarkable Joint effusion: None Postop changes: None XR/XR humerus RT* IMPRESSION:No radiodense foreign body. Impression dictated by: John Mckeon M.D.07/20/2023 7:57 PM Dictation Location: [place] [address] Transcribed By: [facility] 07/20/231956 Dictated By: John Mckeon DO 07/20/231956 Signed By: 07/20/231956 Normal [facility] Activated partial thrombopla stin time (aPTT) in platelet poor plasma by coagulation aOrdered By: Rubén Cardoso on 07-19-2023 aPTT Coag (PPP) [Time] 32.2 s 25.1-36.5 [facility] Comment on above: A hematocrit value g reater than 55% may lead to inaccurate results in coagulation testing. Patients having hematocrit values >55% require a special collection tube for coagulation studies. Please contact the laboratory at [phone] for redraw instructions. Alanine aminotransferase [En zymatic activity/volume] in Serum or PlasmaOrdered By: Rubén Cardoso on 07-19-2023 ALT [Catalytic activity/Vol] 14 U/L 7-[address] [facility] Albumin [Mass/volume] in Ser um or Plasma by Bromocresol green (BCG) dye binding methoOrdered By: Rubén Cardoso on 07-19-2023 Albumin BCG dye [Mass/Vol] 3.8 g/dL 3.5-5.[address] [facility] Alkaline phosphatase [Enzyma tic activity/volume] in Serum or PlasmaOrdered By: Rubén Cardoso on 07-19-2023 ALP [Catalytic activity/Vol] 86 U/L 34-[address] [facility] Anisocytosis LM Ql (Bld)Orde red By: Rubén Cardoso on 07-19-2023 Anisocytosis Ql (Bld) Slight Fir [facility] Aspartate aminotransferase [ Enzymatic activity/volume] in Serum or PlasmaOrdered By: Rubén Cardoso on 07-19-2023 AST [Catalytic activity/Vol] 23 U/L 13-[address] [facility] Automated erythrocytes count in urine sediment (number/area)Ordered By: Rubén Cardoso on 07-19-2023 RBC Auto (Urine sed) [#/Area] 3-4 [HPF] 0-[address] [facility] Automated leukocytes count i n urine sediment (number/area)Ordered By: Rubén Cardsoo on 07-19-2023 WBC Auto (Urine sed) [#/Area] 5-9 [HPF] 0-[address] [facility] B-Type Natriuretic Peptideon 07-19-2023 Natriuretic peptide B (Bld) [Mass/Vol] 299.0 pg/mL High 5-100 [facility] Comment on above: Result Comment: PERF ORMED BY: [place] [address] PATHOLOGIST GENERAL SURGEON FREDA ALCAZAR M.D. Performed By: #### A VASYL CAMPO #### [address] Bacterial blood cultureOrder ed By: Rubén Cardoso on 07-19-2023 Bacteria identified Cx Nom (Bld) NO GROWTH [address] [facility] Bacteria identified Cx Nom (Bld) NO GROWTH [address] [facility] Basophils Auto (Bld) [#/Vol] Ordered By: Rubén Cardoso on 07-19-2023 Basophils (Bld) [#/Vol] 0.0 10*3/uL 0.0-0.[address] [facility] Basophils/100 WBC Auto (Bld) Ordered By: Rubén Cardoso on 07-19-2023 Basophils/100 WBC (Bld) 0.3 % . [facility] Bilirubin Test strip Ql (U)O rdered By: Rubén Cardoso on 07-19-2023 Bilirubin Ql (U) Negative Negative [facility] Bilirubin.total [Mass/volume ] in Serum or PlasmaOrdered By: Rubén Cardoso on 07-19-2023 Bilirubin [Mass/Vol] 0.5 mg/dL 0.3-1.0 [facility] COVID CepheidOrdered By: Patricia Cardoso on 07-19-2023 SARS-CoV-2 (COVID-19) Ab IA Ql Negative Negative [facility] Comment on above: This is a duplicate Cepheid Xpert Xpress CoV-2/Flu/RSV Plus RNA by RT-PCR result to be used for statistical tracking purpose only. SARS-CoV-2 (COVID-19) RNA CAROLINE+probe Ql (Unsp spec) [facility] COVID-19 / Flu A/B / RSV PCR on 07-19-2023 SARS-CoV-2 (COVID-19) RNA CAROLINE+probe Ql (Unsp spec) COVID-19 Cepheid Result Negative for SARS-CoV-2 RNA by RT-PCR Flu A Cepheid Result Negative for Flu A RNA by RT-PCR Flu B Cepheid Result Negative for Flu B RNA by RT-PCR RSV Cepheid Result Negative for RSV RNA by RT-PCR COVID19 Blank Space -- Reference: Negative COVID19 Blank Space -- Cepheid Disclaimer The Cepheid Xpert Xpress CoV-2/Flu/RSV Plus has Cepheid Disclaimer not been FDA cleared or approved; this test has Cepheid Disclaimer been authorized by FDA under an EUA for use by Cepheid Disclaimer authorized laboratories; this test has been Cepheid Disclaimer authorized only for the simultaneous qualitative Cepheid Disclaimer detection and differentiation of nucleic acids from Cepheid Disclaimer SARS-CoV-2, influenza A, influenza B, and Cepheid Disclaimer respiratory syncytial virus (RSV), and not for any Cepheid Disclaimer other viruses or pathogens; and this test is only Cepheid Disclaimer authorized for the duration of the declaration that Cepheid Disclaimer circumstances exist justifying the authorization of Cepheid Disclaimer emergency use of in vitro diagnostic tests for Cepheid Disclaimer detection and/or diagnosis of COVID-19 under Cepheid Disclaimer Section 564(b)(1) of the Act, 21 U.S.C. 360bbb- Cepheid Disclaimer 3(b)(1), unless the authorization is terminated or Cepheid Disclaimer revoked sooner. PERFORMED BY: [place] [address] PATHOLOGIST GENERAL SURGEON FREDA ALCAZAR M.D. Normal [facility] Comment on above: Performed By: #### G LULS #### Point of Care testing , CT head/brain wo conon 07-18 CT head/brain wo con [facility] [place] [address] CT Scan Report Signed Patient: Corona Wharton MR#: [id number] 1 : 1945 Acct:[id number] Age/Sex: 78 / M ADM Date: 07/19/23 Loc: ER Room: Type: [facility] ER Attending Dr: Copies to: Rubén Cardoso DO Ordering Provider: Rubén Cardoso DO Date of Service: 07/19/23 CT/CT head/brain wo con: ? fall CT head/brain wo con 07/19/2023 4:31 PM SIGNS AND SYMPTOMS: Generalized weakness, increasing confusion TECHNIQUE:Multi-detector CT axial slices of the brain were obtained without IV contrast. CT was performed with one or more of the following dose reduction techniques: Automated exposure control, adjustment of the mA and/or kV according to patient size, or use of iterative reconstruction technique. COMPARISON: 2015 FINDINGS: There is no shift of the midline structures, acute intracranial bleeding, mass effects, or evidence of acute ischemia. Atherosclerotic changes are noted in the intracranial segments of the internal carotid arteries. There is diffuse age-related cortical atrophy. There is periventricular white matter hypoattenuation. The ventricular system is normal in size. There is a cavum septa pellucida. Gliosis and encephalomalacia is noted in the cerebellar hemispheres and within the monie consistent with remote infarcts. These are unchanged when compared to the prior exam. Remote lacunar infarcts are noted in the periventricular white matter. The visualized intraorbital contents, the visualized paranasal sinuses, and the infratemporal soft tissues show no acute abnormality. The osseous structures in the skull base and the calvarium show no abnormality. CT/CT head/brain wo con IMPRESSION: No acute intracranial pathology. 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 Impression dictated by: David Zeng M.D.07/19/2023 5:42 PM Dictation Location: [place] [address] Transcribed By: [facility] 07/19/23 174 Dictated By: David Zeng II, MD 07/19/23 1738 Signed By: 07/19/23 174 Normal [facility] Calcium [Mass/volume] in Ser um or PlasmaOrdered By: Rubén Cardoso on 07-19-2023 Calcium [Mass/Vol] 8.9 mg/dL 8.6-10.3 [facility] Carbon dioxide, total [Moles /volume] in Serum or PlasmaOrdered By: Rubén Cardoso on 07-19-2023 CO2 [Moles/Vol] 28.1 mmol/L 21.0-31.0 [facility] Cepheid COVID PCR Negativeon 07-19-2023 SARS-CoV-2 (COVID-19) RNA CAROLINE+probe Ql (Unsp spec) Negative Normal Negative [facility] Comment on above: Result Comment: This is a duplicate Cepheid Xpert Xpress CoV-2/Flu/RSV Plus RNA by RT-PCR result to be used for statistical tracking purpose only. PERFORMED BY: [place] [address] PATHOLOGIST GENERAL SURGEON FREDA ALCAZAR M.D. Performed By: #### G ELEAZAR #### Point of Care testing , Chloride [Moles/volume] in S erika or PlasmaOrdered By: Rubén Cardoso on 07-19-2023 Chloride [Moles/Vol] 102 mmol/L 98-107 [facility] Color Auto (U)Ordered By: Nitin Cardoso on 07-19-2023 Color (U) Yellow Yellow [facility] Comprehensive Metabolic Pane jeanna 07-19-2023 Albumin [Mass/Vol] 3.8 g/dL Normal 3.5-5.7 [facility] Comment on above: Performed By: #### A JAHAIRA CUU #### [address] Albumin/Globulin [Mass ratio] 1.3 {ratio} Normal [facility] Comment on above: Performed By: #### A JAHAIRA, CUU #### [address] ALP [Catalytic activity/Vol] 86 U/L Normal 34-104 [facility] Comment on above: Performed By: #### A JAHAIRA, CUU #### [address] ALT [Catalytic activity/Vol] 14 U/L Normal 7-52 [facility] Comment on above: Performed By: #### A DDLORIUAERIN, CUU #### [address] Anion gap [Moles/Vol] Not performed Normal 6.0-15.0 [facility] Comment on above: Performed By: #### A DDLORIUAERIN, CUU #### [address] Aspartate Amino Transferase Normal 13-39 [facility] Comment on above: Result Comment: Spec imen hemolyzed, redraw requested Performed By: #### A DDLIZABETH, CUU #### [address] [place] [address] [place] Bilirubin [Mass/Vol] 0.5 mg/dL Normal 0.3-1.0 [facility] Comment on above: Performed By: #### A JAHAIRA CUU #### [address] Calcium [Mass/Vol] 8.9 mg/dL Normal 8.6-10.3 [facility] Comment on above: Performed By: #### A JAHAIRA CUU #### [address] Chloride [Moles/Vol] 102 mmol/L Normal 98-107 [facility] Comment on above: Performed By: #### A JAHAIRA CUU #### [address] CO2 [Moles/Vol] 28.1 mmol/L Normal 21.0-31.0 [facility] Comment on above: Performed By: #### A JAHAIRA CUU #### [address] Creatinine [Mass/Vol] 1.23 mg/dL Normal 0.70-1.30 [facility] Comment on above: Performed By: #### A JAHAIRA CUU #### [address] Creatinine Clr Calc Pharmacy 76.94 Normal [facility] Comment on above: Performed By: #### A JAHAIRA CUU #### [place] [address] [place] GFR/1.73 sq M.predicted MDRD (S/P/Bld) [Vol rate/Area] mL/min/{1.73_m2} Normal [facility] Comment on above: Performed By: #### A JAHAIRA CUU #### [place] [address] [place] Globulin (S) [Mass/Vol] 3.0 g/dL Normal [facility] Comment on above: Performed By: #### A DDONUAPLUS, CUU #### [facility] [address] [place] [address] [place] Glucose [Mass/Vol] 216 mg/dL High 70-100 [facility] Comment on above: Result Comment: [facility] Glucose Reference Range is dependent on time and content of last meal. Glucose of more than 200 mg/dL in a nonstressed, ambulatory subject supports the diagnosis of Diabetes Mellitus. ADA recommended reference range Performed By: #### A HELADIOUAPLUS, CUU #### [facility] [address] Potassium Normal 3.5-5.1 [facility] Comment on above: Result Comment: Spec imen hemolyzed, redraw requested Performed By: #### A JAHAIRA, CUU #### [address] Protein [Mass/Vol] 6.8 g/dL Normal 6.4-8.9 [facility] Comment on above: Performed By: #### A JAHAIRA, CUU #### [place] [address] [place] Sodium [Moles/Vol] 136 mmol/L Normal 136-145 [facility] Comment on above: Performed By: #### A JAHAIRA, CUU #### [place] [address] [place] Urea nitrogen [Mass/Vol] 17 mg/dL Normal 7-25 [facility] Comment on above: Performed By: #### A JAHAIRA, CUU #### [place] [id number] [place] Creatine Kinaseon 07-19-2023 CK [Catalytic activity/Vol] 132 U/L Normal 30-223 [facility] Comment on above: Performed By: #### A JAHAIRA, CUU #### [place] [id number] [place] Creatine kinase [Enzymatic a ctivity/volume] in Serum or PlasmaOrdered By: Rubén Cardoso on 07-19-2023 CK [Catalytic activity/Vol] 132 U/L 30-[address] [facility] Creatinine [Mass/volume] in Serum or PlasmaOrdered By: Rubén Cardoso on 07-19-2023 Creatinine [Mass/Vol] 1.23 mg/dL 0.70-1.30 [facility] Dipstick and Microscopicon 0 07-19-2023 Appearance (U) Clear Normal Clear [facility] Comment on above: Order Comment: Name Collection Type:: Clean-Voided Midstream Performed By: #### A DDONUAPLUS, CUU #### [address] Bacteria,Urine None Seen Normal None Seen [facility] Comment on above: Order Comment: Name Collection Type:: Clean-Voided Midstream Performed By: #### A DDONUAPLUS, CUU #### [address] Bilirubin,Urine Negative Normal Negative [facility] Comment on above: Order Comment: Name Collection Type:: Clean-Voided Midstream Performed By: #### A DDONUAPLUS, CUU #### [address] Color (U) Yellow Normal Yellow [facility] Comment on above: Order Comment: Name Collection Type:: Clean-Voided Midstream Performed By: #### A DDONUAPLUS, CUU #### [address] Glucose Ql (U) 500 mg/dL High Normal [facility] Comment on above: Order Comment: Name Collection Type:: Clean-Voided Midstream Performed By: #### A DDONUAPLUS, CUU #### [address] Hyaline Casts,Urine None Seen Normal 0-8 [facility] Comment on above: Order Comment: Name Collection Type:: Clean-Voided Midstream Result Comment: PERF ORMED BY: [place] [address] PATHOLOGIST GENERAL SURGEON FREDA ALCAZAR M.D. Performed By: #### A DDONUAPLUS, CUU #### [facility] [address] Ketones Ql (U) Negative Normal Negative [facility] Comment on above: Order Comment: Name Collection Type:: Clean-Voided Midstream Performed By: #### A DDONUAPLUS, CUU #### [address] Leukocyte esterase Test strip Ql (U) 2+ High Negative [facility] Comment on above: Order Comment: Name Collection Type:: Clean-Voided Midstream Performed By: #### A DDONUAPLUS, CUU #### [place] [address] [place] Nitrite,Urine Negative Normal Negative [facility] Comment on above: Order Comment: Name Collection Type:: Clean-Voided Midstream Performed By: #### A DDONUAPLUS, CUU #### [address] Occult Blood,Urine Negative Normal Negative [facility] Comment on above: Order Comment: Name Collection Type:: Clean-Voided Midstream Result Comment: PERF ORMED BY: [place] [address] PATHOLOGIST GENERAL SURGEON FREDA ALCAZAR M.D. Performed By: #### A DDONUAPLUS, CUU #### [address] pH (U) 6.5 [pH] Normal 5.0-9.0 [facility] Comment on above: Order Comment: Name Collection Type:: Clean-Voided Midstream Performed By: #### A DDONUAPLUS, CUU #### [address] Protein (U) [Mass/Vol] 300 mg/dL High Negative [facility] Comment on above: Order Comment: Name Collection Type:: Clean-Voided Midstream Performed By: #### A DDONUAPLUS, CUU #### [address] RBC,Urine 3-4 Normal 0-4 [facility] Comment on above: Order Comment: Name Collection Type:: Clean-Voided Midstream Performed By: #### A DDONUAPLUS, CUU #### [address] Specificy Wells,Urine 1.015 Normal 1.001-1.03 0 [facility] Comment on above: Order Comment: Name Collection Type:: Clean-Voided Midstream Performed By: #### A DDONUAPLUS, CUU #### [address] Squamous Epithelial Cell,Urine 0-1 Normal 0-2 [facility] Comment on above: Order Comment: Name Collection Type:: Clean-Voided Midstream Performed By: #### A DDONUAPLUS, CUU #### [address] Urobilinogen,Urine Normal Normal Normal [facility] Comment on above: Order Comment: Name Collection Type:: Clean-Voided Midstream Performed By: #### A DDONUAPLUS, CUU #### [address] WBC,Urine 5-9 High 0-4 [facility] Comment on above: Order Comment: Name Collection Type:: Clean-Voided Midstream Performed By: #### A DDONUAPLUS, CUU #### [address] ECG 12 lead ECGon 07-19-2023 ECG 12 lead ECG [facility] [address] Electrocardiograph Report Signed Patient: Corona Wharton MR#: [id number] [birth year] : 1945 Acct:[id number] Age/Sex: 78 / M ADM Date: 07/19/23 Loc: Room: [address] [place] [address] Type: ADM IN Attending Dr: Balbina Garzon DO Ordering Provider: Rubén Cardoso DO Date of Service: 07/19/2308/07/1629 ECG/ECG 12 lead ECG: WEAKNESS Copies to: Test Reason : Blood Pressure : 165/083 mmHG Vent. Rate : 108 BPM Atrial Rate : 108 BPM P-R Int : 168 ms QRS Dur : 152 ms QT Int : 408 ms P-R-T Axes : 019 -74 060 degrees QTc Int : 546 ms Sinus tachycardia Right bundle branch block Left anterior fascicular block Bifascicular block Confirmed by Rubén CARDOSO DO ([id number]) on 07/19/2023 10:26:57 PM Referred By: Electronically Signed By:Rubén CARDOSO DO Transcribed By: MUS Signed By Rubén Cardoso DO 0 07/19/232226 Normal [facility] Eosinophils Auto (Bld) [#/Vo l]Ordered By: Rubén Cardoso on 07-19-2023 Eosinophils (Bld) [#/Vol] 0.3 10*3/uL 0.0-0.[address] [facility] Eosinophils/100 WBC Auto (Bl d)Ordered By: Rubén Cardoso on 07-19-2023 Eosinophils/100 WBC (Bld) 2.5 % . [facility] Erythrocyte distribution wid th Auto (RBC) [Ratio]Ordered By: Rubén Cardoso on 07-19-2023 Erythrocyte distribution width (RBC) [Ratio] 15.0 % 12.0-14.[address] [facility] Globulin Calc (S) [Mass/Vol] Ordered By: Rubén Cardoso on 07-19-2023 Globulin (S) [Mass/Vol] 3.0 g/dL [facility] Glucose [Mass/volume] in Ser um or PlasmaOrdered By: Rubén Cardoso on 07-19-2023 Glucose [Mass/Vol] 216 mg/dL 70-100 [facility] Comment on above: ADA recommended refe rence rangeRandom Glucose Reference Range is dependent on time and content of last meal. Glucose of more than 200 mg/dL in a nonstressed, ambulatory subject supports the diagnosis of Diabetes Mellitus. Hematocrit Auto (Bld) [Volum e fraction]Ordered By: Rubén Cardoso on 07-19-2023 Hematocrit (Bld) [Volume fraction] 44.5 % 38.8-50.[address] [facility] Hemoglobin [Mass/volume] in BloodOrdered By: Rubén Cardoso on 07-19-2023 Hemoglobin (Bld) [Mass/Vol] 13.6 g/dL 13.0-17.[address] [facility] INR in Platelet poor plasma by Coagulation assayOrdered By: Rubén Cardoso on 07-19-2023 INR Coag (PPP) [Relative time] 1.0 {INR} [facility] Comment on above: INR Therapeutic Rang e A) Pre- and Peroperative OAT started two weeks before surgery. NOT HIP SURGERY: 1.5 - 2.5 HIP SURGERY: 2 - 3B) Primary and secondary prevention of venous THROMBOSIS: 2 - 3C) Active venous thrombosis, pulmonary embolismand prevention of recurrent venous thrombosis: 2 - 3D) Prevention of arterial thromboembolismincluding patients with mechanical heart valves: 3 - 4.5 Ketones Auto test strip (U) [Mass/Vol]Ordered By: Rubén Cardoso on 07-19-2023 Ketones (U) [Mass/Vol] Negative Negative [facility] - Chemistry and C hemistry - challengeOrdered By: Rubén Cardoso on 07-19-2023 CO2 [Moles/Vol] 27.2 mmol/L 24.0-29.0 [facility] HCO3 (Bld) [Moles/Vol] 26.0 mmol/L 23.0-29.0 [facility] Laboratory - UrinalysisOrder ed By: Rubén Cardoso on 07-19-2023 Hyaline casts LM Ql (Urine sed) None seen [LPF] 0-[address] [facility] Lactate [Moles/volume] in Se rum or PlasmaOrdered By: Rubén Cardoso on 07-19-2023 Lactate [Moles/Vol] 1.0 mmol/L 0.5-2.2 [facility] Leukocytes [#/volume] correc marina for nucleated erythrocytes in Blood by Automated counOrdered By: Rubén Cardoso on 07-19-2023 WBC corrected for nucl RBC Auto (Bld) [#/Vol] 13.4 10*3/uL 4.1-10.[address] [facility] Lymphocytes Auto (Bld) [#/Vo l]Ordered By: Rubén Cardoso on 07-19-2023 Lymphocytes (Bld) [#/Vol] 1.9 10*3/uL 1.00-4.[address] [facility] Lymphocytes/100 WBC Auto (Bl d)Ordered By: Rubén Cardoso on 07-19-2023 Lymphocytes/100 WBC (Bld) 14.4 % . [facility] MCH Auto (RBC) [Entitic mass ]Ordered By: Rubén Cardoso on 07-19-2023 MCH (RBC) [Entitic mass] 26.0 pg 27.5-35.[address] [facility] MCHC Auto (RBC) [Mass/Vol]Or dered By: Rubén Cardoso on 07-19-2023 MCHC (RBC) [Mass/Vol] 30.5 g/dL 32.5-35.6 [facility] MCV Auto (RBC) [Entitic vol] Ordered By: Rubén Cardoso on 07-19-2023 MCV (RBC) [Entitic vol] 85.3 fL 83.5-[address] [facility] Magnesiumon 07-19-2023 Magnesium [Mass/Vol] 1.8 mg/dL Low 1.9-2.7 [facility] Comment on above: Result Comment: PERF ORMED BY: [place] [address] PATHOLOGIST GENERAL SURGEON FREDA ALCAZAR M.D. Performed By: #### A DDONUAPLUS, CUU #### [address] Magnesium [Mass/volume] in S erika or PlasmaOrdered By: Rubén Cardoso on 07-19-2023 Magnesium [Mass/Vol] 1.8 mg/dL 1.9-2.7 [facility] Microcytes LM Ql (Bld)Ordere d By: Rubén Cardoso on 07-19-2023 Microcytes Ql (Bld) Slight [facility] Monocyte distribution width [Entitic volume] in Blood by AutomatedOrdered By: Rubén Cardoso on 07-19-2023 Monocyte distribution width Auto (Bld) [Entitic vol] 22.44 % 0.00-20.[address] [facility] Comment on above: For adults in ED, MD W > 20.0 may be associated with a higher risk of sepsis during the first 12 hrs of hospital admission Monocytes Auto (Bld) [#/Vol] Ordered By: Rubén Cardoso on 07-19-2023 Monocytes (Bld) [#/Vol] 0.8 10*3/uL 0.0-0.[address] [facility] Monocytes/100 WBC Auto (Bld) Ordered By: Rubén Cardoso on 07-19-2023 Monocytes/100 WBC (Bld) 6.0 % . [facility] Natriuretic peptide B [Mass/ Vol]Ordered By: Rubén Cardoso on 07-19-2023 Natriuretic peptide B (Bld) [Mass/Vol] 299.0 pg/mL 5-[address] [facility] Neutrophils Auto (Bld) [#/Vo l]Ordered By: Rubén Cardoso on 07-19-2023 Neutrophils (Bld) [#/Vol] 10.3 10*3/uL 1.8-7.[address] [facility] Neutrophils/100 WBC Auto (Bl d)Ordered By: Rubén Cardoso on 07-19-2023 Neutrophils/100 WBC (Bld) 76.8 % . [facility] Nitrite Test strip Ql (U)Ord ered By: Rubén Cardoso on 07-19-2023 Nitrite Ql (U) Negative Negative [facility] No Panel InformationOrdered By: Rubén Cardoso on 07-19-2023 Blood Gas Critical Value See comment [facility] Comment on above: Critical Value negro d on: 07/19/2023 at 16:54 Blood Gas Sample Site Venous Fir [facility] FiO2 28 % [facility] Oxygen Delivery Device Nasal cannula [facility] Venous Blood Base Excess 1.9 mmol/L -3.0-3.[address] [facility] Venous Blood Oxygen Content 8.5 mmol/L 6.6-9.[address] [facility] Venous Blood Oxygen Saturation 95.8 % 73.0-76.[address] [facility] Venous Blood Partial Pressure CO2 39.4 mm[Hg] 38.0-50.[address] [facility] Venous Blood Partial Pressure O2 77.5 mm[Hg] 35.0-45.[address] [facility] Venous Blood pH 7.44 7.32-7.[address] [facility] Estimated GFR (CKD-EPI) > 60.0 mL/Min [facility] Pharmacy Creatinine Clearance (Chem 76.[address] [facility] Nucleated erythrocytes [Pres ence] in Blood by Automated countOrdered By: Rubén Cardoso on 07-19-2023 Nucleated RBC Auto Ql (Bld) 0.2 /100{WBC} 0-0.[address] [facility] Partial Thromboplastin Timeo n 07-19-2023 aPTT Coag (Bld) [Time] 32.2 s Normal 25.1-36.5 [facility] Comment on above: Result Comment: A he matocrit value greater than 55% may lead to inaccurate results in coagulation testing. Patients having hematocrit values >55% require a special collection tube for coagulation studies. Please contact the laboratory at [phone] for redraw instructions. PERFORMED BY: [place] [address] PATHOLOGIST GENERAL SURGEON FREDA ALCAZAR M.D. Performed By: #### A JAHAIRA, VASYL #### [address] Platelet adequacy [Presence] in Blood by Light microscopyOrdered By: Rubén Cardoso on 07-19-2023 Platelets LM Ql (Bld) Normal Normal [facility] Platelet mean volume Auto (B ld) [Entitic vol]Ordered By: Rubén Cardoso on 07-19-2023 Platelet mean volume (Bld) [Entitic vol] 8.1 fL 6.6-10.[address] [facility] Platelet morphology finding [Identifier] in BloodOrdered By: Rubén Cardoso on 07-19-2023 Platelet morphology finding Nom (Bld) Normal Normal [facility] Platelets Auto (Bld) [#/Vol] Ordered By: Rubén Cardoso on 07-19-2023 Platelets (Bld) [#/Vol] 297 10*3/uL 150-[address] [facility] Polychromasia [Presence] in Blood by Light microscopyOrdered By: Rubén Cardoso on 07-19-2023 Polychromasia LM Ql (Bld) Slight [facility] Potassium [Moles/volume] in Serum or PlasmaOrdered By: Rubén Cardoso on 07-19-2023 Potassium [Moles/Vol] 4.1 mmol/L 3.5-5.1 [facility] Protein Auto test strip (U) [Mass/Vol]Ordered By: Rubén Cardoso on 07-19-2023 Protein (U) [Mass/Vol] 300 mg/dL Negative [facility] Protein [Mass/volume] in Ser um or PlasmaOrdered By: Rubén Cardoso on 07-19-2023 Protein [Mass/Vol] 6.8 g/dL 6.4-8.9 [facility] Prothrombin Time INRon 07-18 INR Coag (PPP) [Relative time] 1.0 {INR} Normal [facility] Comment on above: Result Comment: INR Therapeutic [...] with mechanical heart valves: 3 - 4.5 Performed By: #### A DDONUAPLUS, CUU #### [facility] [address] PT Coag (PPP) [Time] 11.9 s Normal 9.0-12.9 [facility] Comment on above: Result Comment: A he matocrit value greater than 55% may lead to inaccurate results in coagulation testing. Patients having hematocrit values >55% require a special collection tube for coagulation studies. Please contact the laboratory at [phone] for redraw instructions. Performed By: #### A DDONUAPLUS, CUU #### [facility] [address] [place] [id number] [facility] Prothrombin time (PT)Ordered By: Rubén Cardoso on 07-19-2023 PT Coag (PPP) [Time] 11.9 s 9.0-12.9 [facility] Comment on above: A hematocrit value g reater than 55% may lead to inaccurate results in coagulation testing. Patients having hematocrit values >55% require a special collection tube for coagulation studies. Please contact the laboratory at [phone] for redraw instructions. RBC Auto (Bld) [#/Vol]Ordere d By: Rubén Cardoso on 07-19-2023 RBC (Bld) [#/Vol] 5.21 10*6/uL 3.90-5.60 [facility] RBC morphologyOrdered By: Nitin lino Cardoso on 07-19-2023 RBC morphology finding Nom (Bld) N/A [facility] Redraw Camron 07-19-2023 AST [Catalytic activity/Vol] 23 U/L Normal 13-39 [facility] Comment on above: Result Comment: PERF ORMED BY: [place] [address] PATHOLOGIST GENERAL SURGEON FREDA ALCAZAR M.D. Performed By: #### L ACTIC CUBLD #### [address] Redraw Potassiumon Potassium [Moles/Vol] 4.1 mmol/L Normal 3.5-5.1 [facility] Comment on above: Performed By: #### L ACTIC CUBLD #### [address] Scan and CBCon 07-19-2023 Anisocytosis Ql (Bld) Slight Normal [facility] Comment on above: Performed By: #### S CAN CBC #### [place] [address] [place] Basophils (Bld) [#/Vol] 0.0 10*3/uL Normal 0.0-0.2 [facility] Comment on above: Performed By: #### S CAN CBC #### [place] [address] [place] Basophils/100 WBC (Bld) 0.3 % Normal . [facility] Comment on above: Performed By: #### S CAN CBC #### [place] [address] [place] Eosinophils (Bld) [#/Vol] 0.3 10*3/uL Normal 0.0-0.45 [facility] Comment on above: Performed By: #### S CAN CBC #### [place] [address] [place] Eosinophils/100 WBC (Bld) 2.5 % Normal . [facility] Comment on above: Performed By: #### S CAN CBC #### [address] Erythrocyte distribution width (RBC) [Ratio] 15.0 % High 12.0-14.8 [facility] Comment on above: Performed By: #### S CAN CBC #### [address] Hematocrit (Bld) [Volume fraction] 44.5 % Normal 38.8-50.0 [facility] Comment on above: Performed By: #### S CAN CBC #### [address] Hemoglobin (Bld) [Mass/Vol] 13.6 g/dL Normal 13.0-17.0 [facility] Comment on above: Performed By: #### S CAN CBC #### [address] Lymphocytes (Bld) [#/Vol] 1.9 10*3/uL Normal 1.00-4.8 [facility] Comment on above: Performed By: #### S CAN CBC #### [address] Lymphocytes/100 WBC (Bld) 14.4 % Normal . [facility] Comment on above: Performed By: #### S CAN CBC #### [address] MCH (RBC) [Entitic mass] 26.0 pg Low 27.5-35.2 [facility] Comment on above: Performed By: #### S CAN CBC #### [address] MCV (RBC) [Entitic vol] 85.3 fL Normal 83.5-101 [facility] Comment on above: Performed By: #### S CAN CBC #### [address] Mean Corpuscular HGB Conc 30.5 g/dL Low 32.5-35.6 [facility] Comment on above: Performed By: #### S CAN CBC #### [place] [address] Microcytosis Slight Normal [facility] Comment on above: Performed By: #### S CAN CBC #### [place] [address] [place] Monocytes (Bld) [#/Vol] 0.8 10*3/uL Normal 0.0-0.8 [facility] Comment on above: Performed By: #### S CAN CBC #### [place] [address] [place] Monocytes/100 WBC (Bld) 22.44 % High 0.00-20.00 [facility] Comment on above: Result Comment: For adults in ED, MDW > 20.0 may be associated with a higher risk of sepsis during the first 12 hrs of hospital admission Performed By: #### S CAN CBC #### [address] Monocytes/100 WBC (Bld) 6.0 % Normal . [facility] Comment on above: Performed By: #### S CAN CBC #### [address] Neutrophils (Bld) [#/Vol] 10.3 10*3/uL High 1.8-7.7 [facility] Comment on above: Performed By: #### S CAN CBC #### [address] Neutrophils/100 WBC (Bld) 76.8 % Normal . [facility] Comment on above: Performed By: #### S CAN CBC #### [place] [address] [place] NRBC% 0.2 /100{WBC} Normal 0-0.5 [facility] Comment on above: Performed By: #### S CAN CBC #### [address] Platelet Estimate Normal Normal Normal [facility] Comment on above: Performed By: #### S CAN CBC #### [address] Platelet mean volume (Bld) [Entitic vol] 8.1 fL Normal 6.6-10.1 [facility] Comment on above: Performed By: #### S CAN CBC #### [address] Platelet Morphology Normal Normal Normal [facility] Comment on above: Result Comment: PERF ORMED BY: [place] [address] PATHOLOGIST GENERAL SURGEON FREDA ALCAZAR M.D. Performed By: #### S CAN CBC #### [address] Platelets (Bld) [#/Vol] 297 10*3/uL Normal 150-450 [facility] Comment on above: Performed By: #### S CAN CBC #### [address] Polychromasia Slight Normal [facility] Comment on above: Performed By: #### S CAN CBC #### [address] RBC (Bld) [#/Vol] 5.21 10*6/uL Normal 3.90-5.60 [facility] Comment on above: Performed By: #### S CAN CBC #### [address] WBC (Bld) [#/Vol] 13.4 10*3/uL High 4.1-10.5 [facility] Comment on above: Performed By: #### S CAN CBC #### [address] Serum or plasma albumin/glob ulin mass ratioOrdered By: Rubén Cardoso on 07-19-2023 Albumin/Globulin [Mass ratio] 1.3 {ratio} [facility] Serum or plasma anion gap de terminationOrdered By: Ruébn Cardoso on 07-19-2023 Anion gap [Moles/Vol] TNP [facility] Comment on above: Test not performed Sodium [Moles/volume] in Ser um or PlasmaOrdered By: Rubén Cardoso on 07-19-2023 Sodium [Moles/Vol] 136 mmol/L 136-145 [facility] Specific gravity Auto test s trip (U) [Rel density]Ordered By: Rubén Cardoso on 07-19-2023 Specific gravity (U) [Rel density] 1.015 1.001-1.[address] [facility] Squamous epithelial cells de tection in urine sediment by light microscopyOrdered By: Rubén Cardoso on 07-19-2023 Epithelial cells.squamous LM Ql (Urine sed) 0-1 [HPF] 0-[address] [facility] Troponin I High Sensitivityo n 07-19-2023 Troponin I High Sensitivity 26.2 pg/mL High 0.0-20.0 [facility] Comment on above: Result Comment: PERF ORMED BY: [place] [address] PATHOLOGIST GENERAL SURGEON FREDA ALCAZAR M.D. Performed By: #### A HELADIOUAERIN, CUU #### [facility] [address] [place] [address] Troponin I High Sensitivity 25.9 pg/mL High 0.0-20.0 [facility] Comment on above: Result Comment: PERF ORMED BY: [place] [address] PATHOLOGIST GENERAL SURGEON FREDA ALCAZAR M.D. Performed By: #### A DDONUAPLUS, CUU #### [facility] [address] [place] [address] Troponin I.cardiac [Mass/vol ume] in Serum or Plasma by Detection limit <= 0.01 ng/Ordered By: Rubén Cardoso on 07-19-2023 Troponin I.cardiac DL <= 0.01 ng/mL [Mass/Vol] 26.2 pg/mL 0.0-20.[address] [facility] Urea nitrogen [Mass/volume] in Serum or PlasmaOrdered By: Rubén Cardoso on 07-19-2023 Urea nitrogen [Mass/Vol] 17 mg/dL 7-[address] [facility] Urine Cultureon 07-19-2023 Bacteria identified Cx Nom (U) 25,000 colonies/ml mixed bacterial skin contaminants 2 Days PERFORMED BY: [place] [address] PATHOLOGIST GENERAL SURGEON FREDA ALCAZAR M.D. Normal [facility] Comment on above: Performed By: #### A JAHAIRA CUU #### [facility] [address] Urine bacteria detection by automated methodOrdered By: Rubén Cardoso on 07-19-2023 Bacteria Auto Ql (U) None seen None Seen [facility] Urine clarity by refractomet ry automatedOrdered By: Rubén Cardoso on 07-19-2023 Clarity Refractometry automated (U) Clear Clear [facility] Urine culture routineOrdered By: Rubén Cardoso on 07-19-2023 Bacteria identified Cx Nom (U) [address] [facility] Urine glucose measurement by automated test strip (mass/volume)Ordered By: Rubén Cardoso on 07-19-2023 Glucose Auto test strip (U) [Mass/Vol] 500 mg/dL Normal [facility] Urine hemoglobin detection b y automated test stripOrdered By: Rubén Cardoso on 07-19-2023 Hemoglobin Auto test strip Ql (U) Negative Negative [facility] Urine leukocyte esterase det ection by automated test stripOrdered By: Rubén Cardoso on 07-19-2023 Leukocyte esterase Auto test strip Ql (U) 2+ Negative [facility] Urobilinogen Auto test strip (U) [Mass/Vol]Ordered By: Rubén Cardoso on 07-19-2023 Urobilinogen (U) [Mass/Vol] Normal mg/dL Normal [facility] Venous Blood Gason 4 CO2 [Moles/Vol] 27.2 mmol/L Normal 24.0-29.0 [facility] Comment on above: Performed By: #### A BRENNAN CAMPOU #### [facility] [address] HCO3 (Bld) [Moles/Vol] 26.0 mmol/L Normal 23.0-29.0 [facility] Comment on above: Performed By: #### A JAHAIRA CUU #### [facility] [address] Oxygen Device Nasal Cannula Normal [facility] Comment on above: Performed By: #### A HELADIOUAPLUS, CUU #### [address] Respiratory Critical Normal [facility] Comment on above: Result Comment: Crit ical Value called on: 07/19/2023 at 16:54 PERFORMED BY: [place] [address] PATHOLOGIST GENERAL SURGEON FREDA ALCAZAR M.D. Performed By: #### A HELADIOUAPLUS, CUU #### [address] VBG Base Excess 1.9 mmol/L Normal -3.0-3.0 [facility] Comment on above: Performed By: #### A JAHAIRA, CUU #### [address] VBG Draw Site Venous Normal [facility] Comment on above: Performed By: #### A JAHAIRA, CUU #### [address] VBG Frac Inspired O2 28 % Normal [facility] Comment on above: Performed By: #### A JAHAIRA, CUU #### [address] VBG O2 Content 8.5 mmol/L Normal 6.6-9.7 [facility] Comment on above: Performed By: #### A JAHAIRA, CUU #### [address] VBG Oxygen Saturation 95.8 % Off scale high 73.0-76.0 [facility] Comment on above: Performed By: #### A LILYPLUS, CUU #### [address] VBG PCO2 39.4 mm[Hg] Normal 38.0-50.0 [facility] Comment on above: Performed By: #### A JAHAIRA, CUU #### [address] [address] [place] VBG PH Venous PH 7.44 High 7.32-7.43 [facility] Comment on above: Performed By: #### A JAHAIRA, CUU #### [facility] [address] [place], [place] [id number] [facility] VBG PO2 77.5 mm[Hg] High 35.0-45.0 [facility] Comment on above: Performed By: #### A JAHAIRA, CUU #### [facility] [address] [place], [place] [id number] [facility] WBC Auto (Bld) [#/Vol]Ordere d By: Rubén Cardoso on 07-19-2023 WBC (Bld) [#/Vol] 13.4 10*3/uL 4.1-10.5 [facility] XR chest 2V*on 07-19-2023 XR chest 2V* [facility] [place] [address] [place] [address] XRay Report Signed Patient: Corona Wharton MR#: [id number] 1 : 1945 Acct:[id number] Age/Sex: 78 / M ADM Date: 07/19/23 Loc: ER Room: Type: [facility] ER Attending Dr: Copies to: Rubén Cardoso DO Ordering Provider: Rubén Cardoso DO Date of Service: 07/19/23 XR/XR chest 2V*: WEAKNESS XR chest 2V* 07/19/2023 4:31 PM SIGNS AND SYMPTOMS: WEAKNESS PROTOCOL: Frontal and lateral radiograph of the chest COMPARISON: 02/24/2021 FINDINGS: The trachea is midline. There is cardiomegaly. This is unchanged. The mediastinal structures are also within normal limits. The lung parenchyma is clear. The bony thorax is intact. Degenerative changes are noted in the shoulders and thoracic spine. XR/XR chest 2V* IMPRESSION: No acute cardiopulmonary pathology. Similar cardiomegaly. Impression dictated by: David Zeng M.D.07/19/2023 5:37 PM Dictation Location: [place] [address] Transcribed By: ARCHANA 07/19/23 2852 Dictated By: David Zeng II, MD 07/19/23 173 Signed By: 07/19/23 173 Normal [facility] pH Auto test strip (U)Ordere d By: Rubén Cardoso on 07-19-2023 pH (U) 6.5 [pH] 5.0-9.[address] [facility] EMS Documentationon 08-09-19 EMS Documentation Please click on link to see report [id number] 2VXHdNrNAHiUyvNHRjsE93grOQ udHNbMTMxMCAwIFIgMTIyMCAwI FIgMiAw IFIgMTIyMSAwIFIgMTMxMSAwIF YiF1Evv7ELc3tbTM2xHSLzCDG6 DAUuOPB2MIMbYR5qT2LpjLPq WSR4HxQxSXBzGQAfSQI2OEHyXS ElAUAzcPCYp7teOU5gXDBhJCM6 TOHpHTW8TTIfKR7kZMlaYI5c D8CrzaJiyNZwRINzXKSfNh2OUY EfcRAkDNO7YL9Ph0qxdzCiWBRl DVsvH9NiOSCtYNdbVEGCQr4i Md2ugRj7R1JPFWDwKTT0SKTpMq 6ZIGBiXLG4WnYwOYHtSBTsFENm XOLzZq3ETTDfGRMsSMLMXb6c NVXcN9CisCbuPGXNU5DylTTgU4 E8fJaTzDB4JPNuUwW9DAUuJj0B L4GxZKL5JHMjGCzlKFNWEb1p Pi74JQGcNHXrQ1TyaJD5ERCiQH 47ibU1Y2I8cNCqDVOcXF6YMAAi L1M+VofdbeJgLxzMUmIcXY0z jwb5QC5RWN3awMihPuP6PMK+Pn N0gbBqdInfR2CmNDCcJXYbKILf wmppBOB7KKVzQQqsLkn9SG22 UEDtkqNYLjboOZZsV98LYHKeSj YmQhr8UBA2GyQaDJ26WNOeXWpx ZkWqGB1qJJX9NIOcPeWpERsv Yll9SL5oPpd4BSAxWaMFQzawIt D8SWcbCj99XCOfLEVlFlQaQAAm AbByjzRWBrh9IBCiWtXwMeNa EOZcPvStMIFcatYRGpkcTAK4OG AwFT28QRC8KOJqFZvjCvLwVH1v KSA2BAEfSO86EHU9XAMqWOnh JaQdYJ3yITD7QKAvSC58JKG7GX NtDYysOqU3Jc7yXCB8HNJrDT71 NTEgNTQgcmUKZgozOTMuMjUg AgXbMWKyXjVwOSG8WKPrIsKUSN XhEzl0Dhe9YQS2SgLmSP42HEGu UMboBqDdQYT4VVF7LjCuABZo LqIdxcIXLpluUGV0AXeaXjGuRV 72TYPnCLDoUpWfljMXHib2DTMq EkFoQpb2Vou3WHMgXpCoZSYe ZV74CQQrKyAJKK89OXmjLBVlas jtMI85NLN7AYujTYl4BgPmAULa BAMxJaVSFCRhl2GzKhSaWbt2 GCH7Jv68YFY7CjDfPCNbUJ45QY JrZGwcBgVsYOP6TN8oQVQ3YzHa TRGxDoGvckDKKywuNSL2MeWd CFv8JE7bQmi5CAHbXfOOOEEqPU F0MtN8RUNoRsAkFYD0TOQtIeIA WCh9DpE3ITR1ZW2lEWKdOyh5 LS67UDPlSGkfGwGzDLR9ZKZdK2 1MUOPoZxAeWYO2MeGyJbh5ZcV4 LF6gXbGoSDlhDwWhTUEpbpop CO70WXQ8BAwbFwAjPrc5XcO2CY 0fTfc0VYStPtAQFD08VDpsWIWu wsskARuiWVP1LxUvCvh7VuX8 VQ3bGyCtGFpgAhRoNRDwoaciYR khJZK7FbP1AEO8Su5iFVQfBS58 MTXeHIhyXwPpPRDeLA7pUIF7 SqJtQXXbCxAprdHYUmmrQLX4HS VmWZS8JhOdTDJaIoKswkQHWrfm BZI6UiNyCwHsNY73WPCmGvpx BLYaSTcwAyW4OG5uLKT9MlCqYl ZrFW43XGVnYrvjCNPuMDndNuDl WGZ0LEMbG02HBRFrKrVbBXIg AuPvQZh1OzYnOODsKQZySeGYVI Ron1PeLkTlOpa4WBBkTq2bAUB4 JkRdLHQhZA36ZOIaHFzeIvPy JpP1OCZvSFX6Mhz6NL5mOqk4DC SsTdNXIVD3AQS5XZ8vMGYbGEKb BvDsYHYxEgEtctKJVsf4Vugy FUFaWJXyWiRlHQE6SwNbhzYBYd r8WHCoRFPpDVQzMmEyBCM9UqNq gnSEGdvrHpahIXCor3GoYsOe Xr40SIX6YPtfUsLdMDS6KhB4NQ 8lMkJeMBgtYrVyQNBgmio7Ikor YxFwXUg2AFP3WZ3uOUEdHS68 BIZyTUyqWyWmXCQ3YU24SUF5Dk YpTEXbHjCgexJOMuinXYY9OJYo AId4BR3uRkx5WQAmJoBPJTBl XLS5Oym5DZOmNeYeGAQ4DeMtue WJTsg2WUFqKbLzCKC7Ipf0JIDy LmOdUTH8EnBptdOLLmjjJmop TBXgo4AoUcYaKwi9PUI2BTG7Nq TbDQGfDRSbymQBXsigXXEeL21R WOOuHtFpTYEkNgi2BKY8FI21 DK1rOtn4YWWcNlICROUjNROmYw O4SRC0MjTfAN87KVDlPLmkYuZy VKV5JA48ZQP8MpPfCVGxBoPl baOFWzvtQZC8FCQwDiEhNJ48NI LdCpDvQyHuioFAVfa2YMMwDdGz FTTfKsH0EOKlWiTvYQKkUeT5 DUBtOsAEGP88HVzxKYWvjqfrAP 45OBG1HBGpZHG1FuNvOCJsTRPw slQCRojpRGPtE77BXYXdOyTw Xpa8UqC7FLU0UH04QA2xGdb3JX NgRfDSIMYoXiYzIxM8MTI6AxKv DW35OLUnTIinWyNdRVPbWS04 ARU8SfZjVD00OYOrEJdlSzYjCS S4PN4jNBIeSso0PB85Bc31IWEg VkELWPf6XlP3JOT6EG8oXOVc Vdh1NX80Ub01BZViBsQPNX39OO xaNPZevcvcSQ86MGKsDUjpFZK2 NzQuNSAtMTIgcmUKZgowICBz N55LXJDxIjKbPfO3LvI5EPY3IR 37UH7xQqo1EBSdVxJQAJ09RKzg IHNjbgoxNiAyOTQgNTYzLjI1 EM5tJR33UDPlQjWXDOJin5WsLk W0YEQ1Bl67XBD1Ods6FT28WS64 LBZwJxELBQ40FRckSDYeohwx StDsOZMxIDOhKz02DSEpXTDeYH IpEFluPgPcINSdxgd7Bo60HYBf DCCbFRM9Uq96AUAkQtBfOkSm upYMSfdsCyksGBUoj4IqGbTnDo u4HAJ5Nb54YFHwTrc9TC5rZK1j LOBpQLtzLfXjHVPdjuq6XJ75 BDV0Rj02LOYpXeZ6AS9eDC9xXV FrHZdvJvUrKLA7AQPsB08KWCTt VAKxJGGpKRHxGL9fLMWdHtSx YsTzwjYWJwwcMNFjR69GHRT6Nk v2GKP7Qu22TAS7RzNdIYEdYrR4 QMXlUmDISC60QBewVJXxkmxt MTUuNzUgMjgzLjUgNDkuNSAtMj OzIzXrmhBCLecsMIEeD48TYYI4 WdK5XJH4Wu16XYZ1HgCtSEZy NpT6TMCoWqILID26FImoWHZsml oxNjUuMjUgMjgzLjUgMjguNSAt IyAxCmMtfqGXAxviGQAsE40H EJrfCpd4NSG3Bx13ONWsIL9vYN 4fMFSxETlzEdLuTHF0PZDxB07V NTqnZsn7NTR0Ar39ASWiCC7e BJ8iILWrWBqrEgTbTOMhwvaxYn UuNzUgMjgzLjUgMjUuNSAtMjAu ZxBtmaUSSmleTrtoWSFhy1Cv DiIyFP87FEVvOXDfMNBcPM93XJ 5gYO6lGCJwKQdwHtSyFHIbrsni NjEuMjUgMjgzLjUgNjguMjUg CUTcWaN1RXKkRfPBBF57SYdfAY NjbgoyNjEuMjUgMjgzLjUgNjgu HuBjUWDcGjG1RFTnIcBJYTRb c7VmZsWwGU52FJF1Gi26KUGqIn E4HK2kRO3oSCToYKlzLiXcDJX5 GXMuF84NOmM4HcHbHnwwUxFp EZAyGfZeJIHbZnU1ZXZxEuBAUE Ygz3YqQkJ6Yh86HAIpCXPiZBFq Ae27NNHjWcDhZdHziqQAOanx MjewWEAgm1YwGtB9Io30CZFtIR IvSUXoIa47LPDeZiBuZsJhdgCV ChrpALSdB10WTVW4ZtQpIpkd DvKnZeUwJaKoRMDdApB1SMBuBk XPOD57PFdoGEIkdow7LYicSFLa DWZqKMSyKb9dRSXrJqAmUdNr afCSVihxZWKbN34YYJJbTgi2NT N5Sz14BZT6IdMfFGQtZiH7UNGv ThFPFN04EUwtBISkckf4THKv NzUgMjgzLjUgMjguNSAtMjAuMj AjxzNKNsncXCMxY74NOPxnNgQ5 WIM6Yx02GWH6OW8vNK1eRUWz CZnbOeKtBSK2DPTlH95ZWGrwRj Z0KLU3Mj48AKK4EL3cFI3gRDTp GIhtJaMcACTkesm4SYyfWeHv MjgzLjUgMjUuNSAtMjAuMjUgcm GALfvmQfctOCGvp0CcUjGzIK1q CZQxAAPpKWBaGW85SA5xRQ7a STPwSWnkMnLvRRKiemw6VTJvLn UgMjgzLjUgMjUuNSAtMjAuMjUg mzHBZbavSeniLMSvz2RrKqP3 SP16JQAiNITeJSGcPF29UE7pFW 6mQWIyHPrjZjGmTAOjnoz3BhGc MjUgMjgzLjUgOSAtMjAuMjUg quEXXdzwNcxfPMJsl2KhDvE7KH 9xFEByTZXdAQW3EH9fAD9rVSMs ZHoxJsGgCGDsmzk1Ef74HFIp PjFfGsPxFBXlQtPeBOOdRrR5BK PbHsWRAC40LVckTMNepyp6Mc86 NSAyNjMuMjUgNDIuNzUgLTIw CrG6QFNcLfRQYJEzb7TsXkb6Ao XmVlGpUiY9TWOrFqP5EG4cFA5z BXIfORfmWxZtHPR3ISHtL33I OTUuNSAyNjMuMjUgMjAuMjUgLT DvDyG1DFEeStCSIFBjo8AoNjWf DZ78PZGiLoLmZwXwWBvuGUJg MjAuMjUgcmUKZgowLjkxOCAgc2 SmQmXuZR76IBJsErIjBpMnNKjm NSAtMjAuMjUgcmUKZgoxICBz H02HQBS8IvL7YWD1Ej6qSKOzPL 67EI7aAC4dWXThFRkaBaMmNVO7 ICBz (more content not included)... Normal [facility] Coding Summary.on 07-14-2022 Coding Summary. CD:[id number] Ww+PGh lYWQ+RY5YWAXoT96llROmlV1hO 0NMTElOSywgQVBQTElOSyIgbmF dSV3jlBXhFCLh IC8+GX6yECWsRruekNJuv9W8oK O9G59pbv2nXKmtbKF3AHHaUyVf vmkaa7eyeAn6KTzuBxwrDiCr SZUntK78VRD6gH72Kr71sRJppV Xow9hsvRn3FoTqQNNuXFJ5wSlm YZott7FqDSCwC53arNUbj0R4 NMUacCuxnGQaCnPpeKC6fV3pEY iawvvpb6hqavsaAho8fs44fWSw m2C9xWA3Y9TsqnL0WPUbqZYx BuorhFVXoS9yddiwz6yjicifXm ZsMOFyVJe4OOl1ZIEczVakDpOx DV07UIV2TNMsdvUrG1NgUAGw wJtwQrL8a3W5Gn9RN3ZVBtglH1 VNTUFSWTwvdGQ+XT13vc51U3Pg ZjmzNpx6MHKvWSQ5pVQ8nR9l KYRcOMuyo9E9fAL7V1CsftTnwo 8ca9ztOETjFIdrL08ikJCdc0I7 EFMimEQ0SSBcjHmaWpPmzD20 Oyc+HAOoyNpfu4JhFfkne7zek4 ekpUd9BupgTUOqfiVoqMmlHLW7 r5AoUd5xBNXwnMA3uHL6tK5p RiNsNmB3SBnjV004JnUkoQIeWp yzP42dL7CzjGM+FMMePoy9LRYt dLkfJK2pE9MyXVQvhtdisKNp zOwcJS8eKEByplgxKXDsvQ3qAF IsY5c5HaYqLdJ0WPetT4SoABGz nuwuBz57wT4dLbTcMuU4RVtu A1OywfE0IWMukAPrXJsoUQV6W6 5kx1A9WJDdQHZsNHZ9qWN6vG0i bGlnbjogbGVmdDsgdmVydGlj YLmtICzxB880XMTpwXdyMlPkDX luZyBEYXRlOiAgMDMvMzEvMjAy MzwvdGQ+ZFPzEYG9qCyuSBLr lTDiHIvcKy7tkCitwNhhTM2mVM KmmhicSHBaaF0yBLWtkPKisAhc NQ6aIQOggaqpk453YjDfVVU3 WHLweUFrN0XblJ5iSgSoRVZeUL IpX3FtqARyQLzwF806IQcwPgV7 DDQnrrKgE3OhGWNpsHzpQuR8 u3O1Mz1Mn1XnfnhoW4DivHZvZz NgJrwdCGt9C4PnYdytqDA+PC90 BUVcAI87JTg3EHI2bMrlBEdt YJVyG8CrqX8uVsKsFZZkIFIlMa c+PHRhYmxlIHdpZHRoPScxMDAl JbZxdUeoAC0oId1pFXZdZRQi hOtyfDJfVpYba3jvRJTlZIsdFB 6oySaoC2FxjTA8EDUgf9l5My11 B41iQ1FurNF+KBCvbTP3nIB8 eR3rVkSdFsO4LSskA200KuPnuD YpPcikw1qol5lxyPv8WwV9CSSo tzQuxYkyGAJ6e0CjEn70H60b IHdpZHRoPSIxNSUiIHZhbGlnbj 2sxM0kCu4+NWOtiZR0hPB5eK9j HyKxZbM5EBniG451OvGmqTQa Jicas8xfr7jkbZk0BsKbPKZdhf WbaKvdOJG6y8QkWp82A1GwzRak e9LwAnm0am10mCXsr2D3hJM3 I4QtQTVacffatBPbvKgjKT5cHG ZelonxDHMrvS0vVXLoJ3j5QzCm ZtW4TGxkG4LuywW9XEVqiATo MBDjuLMTrI6tpujlk4npoilrVh VlDWRaPQd2UYd0YWDxjJkgJrRx HIV3GuX2MCT5iFRtgE4rrRwq igxepY7fQjj+ZRX9aFSxiPXIUX 1lOjwvdGQ+NDDoRUW1sVoeMZlp BDUffQ8kNGZmJ6i9CnPpSsA2 ITmiS8ZhurW9LEWuhSFsUBYxmK KFwL5pzqfdo4bqohoyFeNwVBZz DCn8FYy3TJHmqEjnVwXiMZB8 BvM7XLR1nDQzmU0ujAijjvwutJ 9wOyc+ZyhfoKmkBQD5RMs9E2Nz Hlx8FCCbqUktVU1ttKJuZPjd Nn1xoKhjxHuhWD9rMGVomriso0 21DtNtd3pfZUEwbWFyQEntBTQ9 J10cw4Y1JNRcCDSnLDZ4oTM8 cB5kxZepiknxuATywNecbmYkdH xxLYwvGFtxF132VXCwwBwrYmPk ENs0Q5GtAvl7GBFzzUmoAX2e mVQqIXkcPg1dtKtaiSoxZN5xLC Vzmgsnk254PlJeg9lrQEHyaUKy GSbwDOM5C45vy6N7NJEwWJOk FBK0wXV3bM6qjXwnqywlqAAruW ctidJfvWcgQTvwZGxeG477HKNv eRnnEwQriOr7N0YtJgz1CKHj hBvbZD5ctBRjZCayUz2plAjltV olZP7tBXRdxtabb378TgHam5ll ACCelKYmIEwvOTE4F46lc2Z6 QHXgNURpJOP2uOC0zU9dtQcfab ogbGVmdDsgdmVydGljYWwtYWxp K998SDPtlUmgAjYbvFpfpfAv CUtpKXk8G6EgHiatmEJ+PC90YW JjFC61zEAwvRVov0tqqMg7IhLp KMUiKSB0pEpvKSjzk8NbRVVu N64zcDEgm4S2XDClfWwgwJHdXv MwbVO0fP4rJGrirbata4tlaefw Wctws2zaca58qZ15T17tFIhq YCSpYIFxFWYnKFRqqZssys4nyC 9wIi8+FYVhpWI4ePI1zB3xRDKm GmP5KPdeQ264DtTidXVjKgdh y9qjg2ckvRw1WhY1ZUJbgjPxaG spJKR7z1BnDt29P01cQOgpSZZv XPKmUFGpYFDtjShbug8jqU0g Ii8+ORGsrON8nUI7qJ1qFtNyLk R0SPlaP972AxMkxICdIeziA73x R1HmyUN+XYPqPyn3LIIttMll ZE6qyPWpMTyaSt5nKEC6VxHxFg XfZJdmU9WdYAKrqtyueyyhhUB8 FQXhUMWtaH69Ss1ipNqoCTYb xIUDuG6ybolcj4xcimzoPfSiZY KeIJf0LHk6VYWdlFucJuGiJMM7 YuQ0JKN0mKWawU6evYvfbqdc wF6jF7WgQUEiyfzdWq40hM0sIm WsDgA7VMbxBzu+N2PFWEXFSDTQ Ss9AKJD7W9TfBxu7FSCzjRyt MD5cfELbEXrpOx9apSietBbdMS 4kWKRbfxtgWIWhsA5aFSOkrLSr sZnrFQ9mWNGtelegr761QpWo TGF7RGFfeXEeB3MthM8oVtErBO QmCUAdH3RhcWRzSSsnN215GZdm AvF0GNOfxbNbC2PuBQBbuTfq SjZ0i0P9Fy8zZO6oAf4aBJD9VM 41FD67nORjo7O8xVZ4E8LzNULh orhiyjxmwDW1ZTSkLROhzM57 uDImQJtjHs8fe8J6d078WIPeCB HhoL72Yg4ajPqxRVYncGKGpP5h zsemf3hlgahmGjBzNQWmLCg3 POl6MOBoaDdnZyMyNDQ4YrY9XR R6iQBtxR6jwRvnvvwssI0yCdd+ YxYvKHGhfvE8J4NaDhw8AKUp pVcrDQ2seYFfBZllNc2voRgabC mnXZ5zTLWwxnnaRPAmsJ8sZCYi gCAtrZavIC8pFSXjrolpl532 XbKhIIR0BWAxbDKfF7AleU1mAq UmCEDnMYMvS5DxgXMlPVxbJ680 QTphRaN5VCDdokKiR9CcFPFb fFalLlF2m5G8Ve1MFQrjQN50NZ 49fYUhe2L7cRF5Y2SsPDVinxhl axhqkTT2RMPhKQOghU99vLKl RVydSv0gz2P4z882KMGnDMWgaD 18Uu3grUapQBEnnMZQjC2rcxbe g1cepsxvXvReBZHaOHg9SYu6 MCXcuNutIlCdIGL1ThD2RGN5uY OriK3zxOsdyhtvyL4bHjv+RW1l lokrnxO1AJ35XL78X2MyKjlk dGFibGU+PHRhYmxlIHdpZHRoPS fePFLrIsPeyQgwME4vIi6rJOTo HLZxfTilsAOcIpYjd4ylRFNc UEzoBJ3fbGlqD8RcmZC9ISBoz6 e2Kw32P11dN0ZlgAA+PGNvbCB3 cVH4tJ2wMiPqNmP2FKdyO195 NkOfnVBiDxwwv8pyd2xazXu3Ba CoRPFoglDepRuxDWV0t9PjGd88 O00iOLiyBBMqVCZbCDHsUZFf gJxciw7mnE8zQz9+FENzcJC8tZ M5eA9gSgJfBsO8XLirX023SiHq qIJpHzwrA77kX9TkpMT+PHRy Ojb2CJQdlBooEF3afSUeGTtoBs 4fIJM6ZgFfBiHfUYxyH4XjZBSp awzieholfNU0SBFlOVHoyQ07 Dt1gwJbpGf2zQVMfLFN0NMFexT EoS6QbzA1aUsCiEJClGLZqG5Cb bMFdDQpvM670FQouJuJ4LILm syNcN5MpMBBflGeqLqC6x3B7Op 8XgYlvkJEkNA8nLqGoKJt4X7Wf Qij3XJVueDsvQH8lzOIgSEru Kh3giQjibShcVJ3zWYNenookk2 85JrTge1cvTAKifXTpGGogIZZ2 S64ag7N9SYNnJNKhTMV5sBF4 nK6anXedinmzhMJkqYbbpaKfrY rxUWulKLszZ885CKKaqZavHsEX Lia1B6XhLos4MUNxeRqlXK3i sMVxYWmwBd8kvLzubYyhCN7sZF Nljkqsi393FhVof3bzTJBpiRRr DNgoXWR9I58rd9K4LNLsVZQw QYE0aIZ1kM6jtLpaamwecNWlqT rykyWgtTeqYYbyEEumH177RVFy hRgoNx5ULsp9I5AyQzp8XAWp eRjuBD1xeFYnQYmuJx6zcPjhiZ qgRK7bNOJguzfno099OdUuz6kx OHHqxTOgCPcsMHE3N31an8J4 SPNeKJUzKPP4wQD7vD9lrYdqbd ogbGVmdDsgdmVydGljYWwtYWxp L067ESWccNqzVxEbvLQoXyfi dGQ+GP59bl86T8LkUenaCxa4OM BpXRQ8gZT8xH5hTWUkZYmlc0K5 vGZ7C3TvqhUobq0wq7fwSEEm RWvkE43d (more content not included)... Normal [facility] CT Head or Brain w/o Contras [...] MD Transcribed by: TRACEY Technologist: NICK Normal [facility] CT Maxillofacial w/o Contras ton 07-11-2022 [...] Lopez MD Transcribed by: TRACEY Technologist: NICK [facility] CT Spine Cervical w/o Contra ston 07-11-2022 [...] Lopez MD Transcribed by: TRACEY Technologist: NICK [facility] Consent for Treatmenton 06-15 Consent for Treatment [id number]:127 [facility] Discharge Instructionson Discharge Instructions [id number]:127 [facility] ED Clinical Summaryon 2022 ED Clinical Summary (Inserted Image. Mallory ble to display) [address] [address] ED Clinical Summary Person Information Name: CORONA WHARTON/New_Eduard Age: 77 Years : 1945 Sex: Male Language: Romansh PCP: Idalmis Silva MD Marital Status: Visit [...] 07/11/2022 09:57:32 07/11/2022 09:57:32 07/11/2022 09:57:32 ADDRESS: [facility] [id number] PHYS DOC NOTES: MEDICAL INFORMATION: Prescriptions Given: [...] Follow up: With: Address: When: Idalmis Silva [address] [place] [address], [address] [place] [id number] Business (1) In 3 days 07/14/2022 Comments: [...] fall; Closed head injury; Facial contusion Normal [facility] ED Note-Physicianon 03-28-20 23 ED Note-Physician Basic Information Time Seen: Gerson Luz DOFausto 07/11/2022 08:10 History of Present Illness 77-year-old male to the emergency department chief complaint of fall. Patient reports he has a history of stroke with chronic left-sided weakness. He has a hospital bed and uses a bar on the wall to get out of bed. 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 He reports that he [...] Idalmis Silva In 3 days 07/14/2022 EDT [facility] [place] [address]- Business (1) Additional Instructions: Call the office [...] or worse (more content not included)... Normal [facility] Comment on above: Result Comment: Minerva snell Signed By: Gerson Luz DO\.br\Date and Time Signed: 07/11/22 09:38 EDT ED [...] Ask your health care provider for a bioh-zm-msnr plan for gradually returning to activities. ? [...] your friends, family, a trusted colleague, and flatwork finisher hand about your injury, symptoms, and restrictions. Have them watch for any new or worsening problems. General instructions ? Take kalr-uwn-iyyshkq and prescription medicines only as told by [...] how mu (more content not included)... Normal [facility] ED Patient Summaryon 023 ED Patient Summary (Inserted Image. Mallory ble to display) [address] [address] Patient Discharge Instructions Person Information Name: CORONA WHARTON Age: 77 Years Arrival Date: 07/11/2022 08:09:24 Discharge Diagnosis: Accidental fall; Closed head injury; Facial contusion Primary Care Physician: Idalmis Silva MD Provider Information Primary Provider: Gerson Luz DO Advanced Purchasing Agent:None The exam and treatment you received in the Emergency Department were for an urgent problem and are not intended as complete care. It is important that you follow up with a doctor, nurse practitioner, or physician?s digital assistant for ongoing care. If your symptoms [...] Follow-up Instructions: With: Address: When: Idalmis Silva [address] [place] [address], [place] [address] Business (1) In 3 days [...] opioids can be used to help relieve rbkbrmic-vk-dunpqu pain and are often prescribed following a [...] your pain. o (more content not included)... [facility] ED Traumaon 07-11-2022 ED Trauma [id number] [facility] EMS Documentationon 07-12-19 23 EMS Documentation Please click on link to see report [id number]+ uayIBzxAECClYEhHCKyXpK6BPy lUfYeEI3yoc1YPEyBB9KeRKJpG VrdLo3Y FJriQLj9KTNiFH0PU4zaTMh7Mu E1Wf7XkQ8wLCEqnoVcSHBFN41y CgxsZmBhQXmtZPHoBHL9MZRK Zj8hIIFsWRGgTNEfJPZxQZKfOB AgICAgICAgICAgICAgICAgICAg ICAgICAgICAgICAgICAgICAg ICAgICAgICAgICAgICAgICAgIC ZeUJmziaSaPorCMg4CbQBxJn6C MjIgMjUNCjAwMDAwMDAwMzIg DMDaQYPmsu9PAKBtNTUmASU4LN AwMDAwMCBuDQowMDAwMDAxNTg3 NEUkHHLdBS2IQlMyFNLbJIO6 PVQhDYGuKUDhfi4RZHPuISAsGX kzNCAwMDAwMCBuDQowMDAwMDAy GJr5VBUhRUDxMC8DSdPqIVPb FMZwRvHyMXPbGIHiey6AURAxXX AwMjMxNSAwMDAwMCBuDQowMDAw EWGrWub9DRZvXIUnNZ6FVbHl DTWsARF6WNfeDAVvLWQcgp8VYA AwMDAwMjgwNSAwMDAwMCBuDQow POCpCSMnKND2IFAqGVStSX5I IvVbZJWlAXQ2GKbfCIWqAFVpwj 0KMDAwMDAwMzYxMyAwMDAwMCBu ORpgIYPiAVZzXDZ4ZIOiIJCp PK5LGaLvRKStTBGkZEpoTDHvWZ Jxjt6CRIRjFJBgHDP3OzVsKKUm ZTWmDUiyMROnKLZ9QgMaNZUq YQEhUB4DXaBbXSDhZDJ2EqUaJT WoPIDvwp7AQCLmZGZrCPYqQUWy WQPgBJRaAJxtTYXxXCU0TELx WLNcMAExLR6FEsKhWLBzKCB2HW ZdETTxFKLilr9EYVXzSUOgOZM0 OCAwMDAwMCBuDQowMDAwMDQ5 ZEPwQYOvNJBjLV3CXyYjSIOjYE X3WiSgEDAhGBYeoh1QxAAjgEak rc2PTYaSA9jKPIw2PQS8NSFK LgHzIFW3FFX0UJb1AsbRHnXAZm NDRjUwNDA+CjwyRDhBNTNBMzdD FDUpPUSFISg1R5OBXGUSGyVZ MFTYJR4cMe0LheX0CCH4TkikVU fwIu9wyURqNuKeLDKJX9KpokFh JEmZO3OinDQiOLOyZ2RZAYH5 Lp55QxaalDnYXFZ2EIMBOLevRD 9TDfeYHzGfTReuGd40K1QIj1M7 GjFrS6XWnKnZqdUPGOglV7zT lTE0b6swyBoZiLRWhPpgJMmIvu xOjmSZDTveZGJZkB05ildKX3Ng KOm3U5VXOs2SJCexBqPvgU0L xQwdWTU6yU6bECLZATuOVsdfHA 6LIIEFWFj4FSu+PiAgICAgICAg ICAgICAgICAgICAgICAgICAg ICAgICAgICAgICAgICAgICAgIC AgICAgICAgICAgICAgICAgICAg ICAgICAgICAgICAgICAgICAg ICAgICAgICAgICAgICAgICAgIC AgICAgICAgICAgICAgICAgICAg ICAgICAgICAgICAgICAgICAg ICAgICAgICAgICAgICAgICAgIC AgICAgICAgICAgICAgICAgICAg ICAgICAgICAgICAgICAgICAg ICAgICAgICAgICAgICAgICAgIC AgICAgICAgICAgICAgICAgICAg ICAgICAgICAgICAgICAgICAg ICAgICAgICAgICAgICAgICAgIC AgICAgICAgICAgICAgICAgICAg ICAgICAgICAgICAgICAgICAg ICAgICAgICAgICAgICAgICAgIC AgICAgICAgICAgICAgICAgICAg ICAgICAgICAgICAgICAgICAg ICAgICAgICAgICAgICAgICAgIC AgICAgICAgICAgICAgICAgICAg ICAgICAgICAgICAgICAgICAg AA7Ig7HgdnN6jtOaONdpCHuiPG WKSa8IEUkoHlBlVG7noo5DALlD E41pwVQrGQNdSWRtBXVhXhit J4UuiuBwyHvxnkZeZfYdFUHPVk 3AfJQYZLbfN1Q0eDxuPNSiYVki RJCSAp0ZHVfuSY1yUJLdKSWg Rj3mIRfcOBGsPNVrYrKjOLRZDv 3QdPZwTP1SPVXaqE6fFo7+DQpl zkYhWhqOOl1UYlEiQJKvSwfD Zzz5It7IuPz4EHKmI8YuUNEjCU Nqh0DnQd1LHQ5loTtnRPR2Bj2P JWs6Nu1+EMoqgFBcHP6JIply W1DuIQVcJKOhARWlBPbROdHDZV pTgGwhqBgXA+OsNgjzizkDMsAQ ApNDPwLAnISpGxV7HTgCY2P8 VKqNHzGdX5X2RDaAZQOKZtJlGW cHcOfT3aMWrKkAuqC8FWJ2kSUU DHPrGRgm+wHwGLZaBiHPG9IE Yl4PVJ3jc1RcWKTnQUpgezHsGb eGVd8GTiVlARTxWghPBhh1Bx0B h501DJ36juIcNLLuEESETMie LRYixJWPo5zzHcYdKHJ9NGJsHp ceJUskPKZgFW92RUYtFXPnCsyz TcIyc8TqM2AfPBw1Zr7RL0Ak PKW2TLg1Ee9IQOJgQtDdHtWuKN HHBn8EFl6KJ4W1yLGpE1OyT7LJ No6CGtSeJU4hzj4PFQuuTzLm HO1uob3VDCzPV0YUd3wgJlZrRI X2IRGlJiqkIFezGfhzeJXoKY5O qLY5OAFsP07lZGjzQFTaX5Ib VNj1Rb8MQIDbtTPnIJGeOSuIM9 vJBcreK1WaIAyOJ6rtWoX4CAMe IDAgUgo+Pgo+OllsM6EraSdj PZXoYf7hnEbzZZceOMIwSU3xzj VjdAo+Wp0Kh5WvOJEeJAo3eEDK 5GKh7OStEVDxHYN4UUDdhoZN GZvo4WdRsXXrDtSxpSAtM4gfIV Xt91zBVMQrXkdTg0wdHsYz4MzV JZ+BB5ZTbyPiCkWqox4TTLxw dcEptICsAM6EYeYsJZ7loy1XCX lxHiBdDO4tol2ZDKgMZ1BXQW8Y k4CdDFlDB6WJKAGXQ0cGPPUR S0sLWVUWU7nJWGISZ50DOBZBE9 XTZJRhnMYLL6WtUZGNGa8SYoXv LQ5wbo7HCJgkZGGcCC9jer2Z NIoOP3TKAV8Fj1PnCOkNO5PuPJ ZDFf0JOdXtLJ0wmr6XAUlvESPk UD0kfh4DKUsJR7WDVD3Hk3Lz XVcVS9JDOPDOU0oCFMLUX6iLHA DXM6wQLMDZL82QPQBAV7CIVAMm qKUFR5ItPTBVAk6CBdDjVF5v lg7FDCubEEFcWV8hxm1VNGlAP6 Nac3UOw089YL3AZ5bGLdRpS923 kdjrbf6np5GIINMkzDQRAGah WWNfW2RgTUZwpNVzocPpEXrjWD JnUYWuLw3RsiJcHBwfHoUqIUCy cyQssUphTQabG4NomZkoYMWy PFsqXJSIL8TcIU4yP49fWRCpRo EgKFYXT5I4rTSyZ2ZkrvDJDv8W JoVsBO5edm2HXYeiDFKrMR7a os8UBQxSO2Jcd7SVq775YT3PO8 oNQwFiD226kwecng6ii7KJQQHb kPHPLAnvE5aWZ5pxhSSlHV7v dxK3ITlvQ4FlPXJwthbrLLvsMS 26bSA8EFmfDaIyoZJ1izctZVGl g4FyQElfS8TgiRaoqTGnyUVk Cj4+Hs3TYEBNc8gQPP7hfEStGW EwqkBitWiTW7NDWRUCP4YyswEK NTYwspxuhH1rQEAtCVVaVnbi D1IzpXmnKKOdD2yGNc9ocBH5lK ToEp0EeTVxOS8Oc118Kk7TULnu QPFaRNH9CGTlBLi1BaIvBx1+ IGtsxlLcCgwAAp7UWqMtACNcKx oANrf6Sa6Uy8WigjUxJFYbXtZd MXGpCq2MSTSMAUsswEYdAVcp Dkn8Tyk0Be8GFSDdQD49AWOdNK 4mETR8EwtvKdhyI7HsVoYVH0Qp psTZZm94RUpuCGwrNct3OHFj MF65ELBcUMO2MyUvIbCgVhY6UW D2PXLnMvNlLDalYDFmJq8Au504 EqqdKMNbOPVuBAALNj2Lh259 UzEbHGRyJ4QQT2aNK9PwmNWsPQ IOZJrIIf5Na5neIULPL3i3IVkf Q4QvH1jsPCLSU1N1MP1HQQr1 HuJ2VJa3Hz3OoFAvZE8Jn239CY UpC4NsmLBtwzn+Rg2LSR8lf1Ta BWpBHnCcSQCkl2PtJRs0AGlu OihpqJIuRQ1RpDK5NCAdH37nNS kgOVSqK0GsUUVvYSu+Rq1Ys2Eb KHIkIVh1nP0Ks19AXOO7+yt8 nG2RadQpYzwlZHhOeP+B6dBOvy SWirGMc+Jpb5YlOwXXEIIdsIK8 BIVbwWjRGTu4h2qu0T8S2NUi t04NB7GDMUGPpq1FC5L0QzlNqy xy2quO1Ky+MEFTatKUQ7bzD/6w 1+NIQvga8iC9Az/92zseT77h jc4MQDVxmdaYi+xa4taoHkrYtQ U7VpGusUwjQgizec/UQFoUU5cD ZoRVfyDhM3rNCzz9Tu2w9beB YW0aPUzFcQykfLa1FrZNYZYg2i CAHFuLAKtw0sYmEMX0Kuj75v7Y A0IirrS6Q87vWCPjetM4nOWW W36XuxEbRQcsbzsEPmt0JKEM2e RXNZqhpKVxFqOfGGKeW5o7ZXjC mBlxQTubsZvNfmwjj99Cq7Qa 7TYWbv+FE94iVg2nZHbyil9NNK 1zx1HpFIYxKCdlqxXdGbdPFc9G LaZgULBjVcnUYec0On0BHGMq Zo7qgFQhNtEEZm5AB5YegFXzQV GXAFfAY41TVj1RPXNqAN6yHQ43 En0xjGYpAjL0WUJqOh9EK9Er Z25gkO1tCD6WIDJucFa4xH4DSg 5WhEM3rZGkNP0FiCGyERjkKZ4M bmlj (more content not included)... Normal [facility] Pre-Arrival Noteon Pre-Arrival Note Pre-Arrival Summary Name: , Current Date: 07/11/2022 08:10:36 EDT Gender: Date of : Age: 78 Pre-Arrival Type: EMS ETA: 07/11/2022 08:19:00 EDT Primary Care Physician: Presenting Problem: fall Pre-Arrival User: Laura Tabor RN Referring Source: Location: PA Completion Date/Time: 07/11/2022 07:49:00 [facility] Emergency Department Pre-Hospital Report Form _ Vital Signs: Pre-Hospital Report: Treatment in Route: Response to Treatment: Misc. Issues: Normal [facility] US MARLENA DOP LEG LTon 06-21-19 [...] by: GRAHAM SCHWARTZ Date: 2022-06-20 16:27 Normal [facility] CT LSPINE WO CONon 3 CT LSALBION WO CON CT LSPINE WO CON INDICATION: 76 years old; Male. [...] by: BALBINA FRIAS Date: 2022-05-05 23:41 Normal [facility] CTA ABD/PELVIS WO W CONon CTA [...] RADHA CONNELLY Date: 2022-05-05 23:51 Normal [facility] PROF CHEM 8 (BAS METB)on Anion gap [Moles/Vol] 14.7 mmol/L Normal [facility] Comment on above: Performed By: #### B MP #### [facility] [address] [address] [address] Bertha Bowen Calcium [Mass/Vol] 9.0 mg/dL Normal 8.5-10.1 [facility] Comment on above: Performed By: #### B MP #### [facility] [address] [address] [address] Bertha Bowen Chloride [Moles/Vol] 100 mmol/L Normal 98-107 [facility] Comment on above: Performed By: #### B MP #### [facility] [address] [address] [address] Bertha Bowen CO2 [Moles/Vol] 29.1 mmol/L Normal 21.0-32.0 [facility] Comment on above: Performed By: #### B MP #### [facility] [address] [address] [address] Bertha Bowen Creatinine [Mass/Vol] 1.33 mg/dL Critically high 0.70-1.30 [facility] Comment on above: Performed By: #### B MP #### [facility] [address] [address] [address] Bertha Bowen EGFR-AF THAI >60 Normal >=60 [facility] Comment on above: Performed By: #### B MP #### [facility] [address] [address] [address] Bertha Bowen EGFR-NON AF THAI 52 mL/min/1.73m2 Critically low >=60 [facility] Comment on above: Performed By: #### B MP #### [facility] [address] [address] [address] Bertha Bowen Glucose [Mass/Vol] 260 mg/dL Critically high 74-106 T [facility] Comment on above: Performed By: #### B MP #### [facility] [id number] Bertha Bowen Potassium [Moles/Vol] 4.8 mmol/L Normal 3.5-5.1 [facility] Comment on above: Performed By: #### B MP #### [facility] [address] [address] [address] Bertha Bowen Sodium [Moles/Vol] 139 mmol/L Normal 136-145 [facility] Comment on above: Performed By: #### B MP #### [facility] [address] [address] [address] Bertha Bowen Urea nitrogen [Mass/Vol] 27.0 mg/dL Critically high 7.0-18.0 [facility] Comment on above: Performed By: #### B MP #### [facility] [address] [address] [address] Bertha Bowen Urea nitrogen/Creatinine [Mass ratio] 20.3 mg/mg Normal [facility] Comment on above: Performed By: #### B MP #### [facility] [address] [address] [address] 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 07-25-2023 12:00-0400 Diastolic blood pressure 92 mm[Hg] MD Idalmis Silva Work Phone: [facility] 07-25-2023 12:00-0400 Heart rate 65 /min MD Idalmis Silva Work Phone: [facility] 07-25-2023 12:00-0400 Respiratory rate 18 /min MD Idalmis Silva Work Phone: [facility] 07-25-2023 12:00-0400 SaO2% (BldA) [Mass fraction] 96 % MD Idalmis Silva Work Phone: [facility] 07-25-2023 12:00-0400 Systolic blood pressure 152 mm[Hg] MD Idalmis Silva Work Phone: [facility] 07-25-2023 08:00-0400 Body temperature 98 [degF] MD Idalmis Silva Work Phone: [facility] 07-25-2023 04:45-0400 Body weight 148.9 kg MD Idalmis Silva Work Phone: [facility] 07-20-2023 14:08-0400 Body height 182.88 cm MD Idalmis Silva Work Phone: [facility] 07-19-2023 22:24-0400 Diastolic blood pressure 102 mm[Hg] MD Idalmis Silva Work Phone: [facility] 07-19-2023 22:24-0400 Heart rate 113 /min MD Idalmis Silva Work Phone: [facility] 07-19-2023 22:24-0400 Respiratory rate 22 /min MD Idalmis Silva Work Phone: [facility] 07-19-2023 22:24-0400 SaO2% (BldA) [Mass fraction] 90 % MD Idalmis Silva Work Phone: [facility] 07-19-2023 22:24-0400 Systolic blood pressure 152 mm[Hg] MD Idalmis Silva Work Phone: [facility] 07-19-2023 20:05-0400 Inhaled oxygen flow rate 2 L/min MD Idalmis Silva Work Phone: [facility] 07-19-2023 16:22-0400 Body height 182.88 cm MD Idalmis Silva Work Phone: [facility] 07-19-2023 16:22-0400 Body temperature 97.6 [degF] MD Idalmis Silva Work Phone: [facility] 07-19-2023 16:22-0400 Body weight 154 kg MD Idalmis Silva Work Phone: [facility] 07-11-2022 09:31-0400 Diastolic blood pressure 96 mm[Hg] Gerson Sukh [facility] 07-11-2022 09:31-0400 Heart rate 96 /min Gerson Sukh [facility] 07-11-2022 09:31-0400 Heart rate 98 /min Gerson Sukh [facility] 07-11-2022 09:31-0400 Mean blood pressure 112 mm[Hg] Gerson Sukh [facility] 07-11-2022 09:31-0400 Respiratory rate 9 /min Gerson Sukh [facility] 07-11-2022 09:31-0400 Respiratory rate 18 /min Gerson Sukh [facility] 07-11-2022 09:31-0400 SaO2% (BldA) [Mass fraction] 96 % Gerson Sukh [facility] 07-11-2022 09:31-0400 Systolic blood pressure 145 mm[Hg] Gerson Sukh [facility] 07-11-2022 09:00-0400 Heart rate 95 /min Gerson Sukh [facility] 07-11-2022 09:00-0400 Hourly Rounding Gerson Sukh [facility] 07-11-2022 09:00-0400 Respiratory rate 20 /min Gerson Sukh [facility] 07-11-2022 08:26-0400 Diastolic blood pressure 101 mm[Hg] Gerson Sukh [facility] 07-11-2022 08:26-0400 Heart rate 88 /min Gerson Luz [facility] 07-11-2022 08:26-0400 Respiratory rate 18 /min Gerson Luz [facility] 07-11-2022 08:26-0400 SaO2% (BldA) [Mass fraction] 96 % Gerson Luz [facility] 07-11-2022 08:26-0400 Systolic blood pressure 136 mm[Hg] Gerson Luz [facility] 07-11-2022 08:10-0400 Body temperature 98.06 [degF] Gerson Luz [facility] 07-11-2022 08:10-0400 Respiratory rate 18 /min Gerson Luz [facility] 07-11-2022 08:10-0400 SaO2% (BldA) [Mass fraction] 96 % Gerson Luz [facility] 09-26-2021 15:15-0400 Diastolic blood pressure 81 mm[Hg] [facility] 09-26-2021 15:15-0400 Heart rate 95 /min [facility] 09-26-2021 15:15-0400 Respiratory rate 16 /min [facility] 09-26-2021 15:15-0400 SaO2% (BldA) [Mass fraction] 93 % [facility] 09-26-2021 15:15-0400 Systolic blood pressure 158 mm[Hg] [facility] Encounters Encounter Date Encounter Type Care Provider Facility Start: 07-25-2023 Non-patient / Non-visit MD Idalmis Silva Work Phone: [facility], [facility]1983 Physician [facility] Gastroenterology Work Phone: Start: 07-20-2023 Non-patient / Non-visit MD Idalmis Silva Work Phone: [facility], [facility]1983 Physician [facility] Med OutPt Work Phone: Start: 07-19-2023 End: 07-25-2023 Evaluation and management of inpatient Luigi Napoles Facility:[facility] Start: 07-19-2023 End: 07-25-2023 Evaluation and management of inpatient MD Idalmis Silva Work Phone: [facility] Work Phone: Start: 07-11-2022 End: 07-11-2022 Emergency department patient visit Gerson Luz Facility:[facility] Start: 07-11-2022 End: 07-11-2022 Emergency department patient visit Gerson Luz [facility] Start: 06-20-2022 End: 06-20-[address] IDALMIS SILVA . Facility: Start: 05-05-2022 End: 05-06-[address] CODY AMBRIZ . Facility: Start: 04-18-2022 End: 05-02-2022 ambulatory [facility] PROVIDER [facility] Start: 09-26-2021 End: 09-28-2021 ambulatory [facility] Start: 09-26-2021 End: 09-26-2021 ambulatory [facility] Emergenc y Triage, Treat and Transport Start: 09-26-2021 End: 09-26-2021 Emergency department patient visit [facility] Emergency Triage, Treat and Transport Comment on above: Arrived Procedures Date Procedure Procedure Detail Performing Clinician Start: 07-24-2023 Plain chest X-ray MD Ibarra Work Phone: Start: 07-21-2023 CT angiography of head MD Idalmis Silva Work Phone: Start: 07-21-2023 CT angiography of ne ck vessels MD Idalmis Silva Work Phone: Start: 07-20-2023 Plain X-ray of right humerus MD Idalmis Silva Work Phone: Start: 07-20-2023 MRI of head MD Idalmis Silva Work Phone: Start: 07-19-2023 CT of head without contrast MD Idalmis Silva Work Phone: Start: 07-19-2023 Plain chest X-ray MD Ibarra Work Phone: Start: 07-19-2023 Blood culture for bacteria, including anaerobic screen MD Idalmis Silva Work Phone: Start: 07-19-2023 SARS-CoV-2, Influenz a & RSV (PCR) MD Idalmis Silva Work Phone: Start: 07-19-2023 Urine culture MD Ej Silva Work Phone: Start: 05-01-2017 Injection of therape utic substance into bladder wall Gerson Sukh Start: 11-21-2016 Injection of therape utic substance into bladder wall Gerson Luz Start: 08-12-2014 Cystoscopy Gerson joel Start: 08-12-2014 Urodynamic studies Emelina Luz Back structure, excl uding neck (body structure) Gerson Luz Colonoscopy Gerson Luz History of hernia repair Ben ethel Sukh Plan of Treatment Date Care Activity Detail Author Start: 07-25-[address] [facility] Start: 07-24-2023 Referral to general activities therapist [facility] Start: 07-24-[address] [facility] Start: 07-23-[address] [facility] Start: 07-22-2023 Blood culture for bacteria, including anaerobic screen Blood Culture [facility] Start: 07-22-[address] [facility] Start: 07-21-[address] [facility] Start: 07-20-2023 Referral to neurologist [facility] Start: 07-20-2023 End: 07-20-[address] [facility] Start: 07-19-2023 Hospital admission [facility] Start: 07-19-2023 Microbial culture of sputum [facility] Start: 07-19-[address] [facility] Start: 07-19-2023 Bacteria identified in Blood by Culture [facility] Start: 07-19-2023 Bacteria identified in Urine by Culture [facility] Start: 06-17-2021 COVID-19 Vaccine (4 - Booster for Moderna series) COVID-19 Vaccine (4 - Booster for Moderna series) [facility] Start: 03-14-2018 Pneumococcal vaccination Pneumococcal Vaccine(s) (65+ yrs) (2 - PPSV23 or PCV20) [facility] Start: 01-14-2009 Annual wellness visit Annual Wellness Visit (G0438) [facility] Start: 06-08-1996 Measurement of occult blood in single stool specimen FIT [facility] Start: 06-08-1996 Screening for malignant neoplasm of colon CRC Screening [facility] Start: 06-08-1996 Shingles (RZV) Vaccine (1 of 2) Shingles (RZV) Vaccine (1 of 2) [facility] Start: 06-08-1981 Lipid panel Cholesterol [facility] Start: 06-08-1964 Hepatitis C screening Hepatitis C Antibody [facility] Start: 06-08-1964 Tetanus + diphtheria + acellular pertussis vaccine (product) Tdap Booster [facility] Start: 1945 Screening for malignant neoplasm of colon Colonoscopy [facility] Albumin/Globulin ratio [facility] Anion gap measurement [facility] Basophils [#/volume] in Blood by Automated count [facility] Basophils/100 leukoc ytes in Blood by Automated count [facility] Calculated LDL alona sterol level [facility] Cholesterol.total/Ch olestero l in HDL [Mass Ratio] in Serum or Plasma [facility] Eosinophils/100 leuk ocytes in Blood by Automated count [facility] Erythrocyte distribu tion width [Ratio] by Automated count [facility] Erythrocytes [#/volu me] in Blood [facility] Globulin [Mass/volum e] in Serum [facility] Glucose measurement estimated from glycated hemoglobin [facility] Hematocrit [Volume F raction] of Blood [facility] Hemoglobin [Mass/vol ume] in Blood [facility] Leukocytes [#/volume ] corrected for nucleated erythrocytes in Blood by Automated coun [facility] Leukocytes [#/volume ] in Blood [facility] Lymphocytes [#/volum e] in Blood by Automated count [facility] Lymphocytes/100 leuk ocytes in Blood by Automated count [facility] MCH [Entitic mass] b y Automated count [facility] MCHC [Mass/volume] b y Automated count [facility] MCV [Entitic volume] by Automated count [facility] Monocytes [#/volume] in Blood by Automated count [facility] Monocytes/100 leukoc ytes in Blood by Automated count [facility] Neutrophils [#/volum e] in Blood by Automated count [facility] Neutrophils/100 leuk ocytes in Blood by Automated count [facility] Nucleated erythrocyt es [Presence] in Blood by Automated count [facility] Patient Education Heart Failure, Adult (DC) [facility] Work Phone: Patient referral [facility] Work Phone: Platelet mean volume [Entitic volume] in Blood by Automated count [facility] Platelets [#/volume] in Blood [facility] VLDL cholesterol measurement [facility] Immunizations Immunization Date Immunization Notes Care Provider Gwen churchill 01-27-2020 Seasonal trivalent i nfluenza vaccine, adjuvanted, preservative free [facility] 03-14-2017 pneumococcal conjuga te vaccine, 13 valent [facility] 01-25-2017 influenza, high dose seasonal, preservative-free [facility] Payers Date Payer Category Payer Self-pay [id number] 2020 Unknown [id number] 2008 Medicare MEDICARE MEDICAR E PART A & B [id number] 2008-Present [address] [place] [address] Medicare [id number] 2008 Medicare [id number] 1945 Unknown [id number] 1945 Unknown [id number] 1945 Unknown [id number] 1945 Unknown [id number] 1945 Unknown [id number] 1945 Unknown [id number] Unknown Regular Insurance [id number] Unknown [id number] Social History Date Type Detail Facility Tobacco smoking status WVIS Tobacco smoking consumption unknown [facility] Start: 1945 Sex Assigned At [facility] on file [facility] Start: 03-03-2019 Tobacco smoking status Never smoked tobacco (finding) [facility] Tobacco smoking status Never [facility] Sex Assigned At Male [facility] Start: 07-19-2023 End: 07-25-2023 Tobacco smoking status WVIS Ex-smoker (finding) [facility] Start: 1945 Sex Assigned At Male [facility] Goals Date Patient Goal Desired Activity /State Functional Status Date Assessment Result Facility 07-25-2023 Functional status Patient is Pro gressing Toward Baseline [facility] Work Phone: 07-11-2022 Functional Status N/A [facility] Mental Status Date Assessment Result Facility 07-25-2023 Cognitive function Cognitive Sta tus Patient is Progressing Toward Baseline [facility] Work Phone: Clinical Notes 09-26-2021 to 07-25-2023 Note Date & Type Note Facility 07-25-2023 Consult note Note Date/Time July 25, 2023 9:16am [facility] [address] [place] [address] Gastroenterology Consult Note Signed Patient: Coorna Wharton MR#: [id number] : 1945 Acct:[id number] Age/Sex: 78 / M Adm Date: 4 Loc: Room: [address] [place] [address] Type: ADM IN Attending Dr: Luigi Napoles DO Copies to: MD Brenda Padilla MD Shawn J Warner, DO~ HPI Data of Consult Date of Consultation: 07/25/23 Requesting Physician: Luigi Napoles DO Consult Narrative History of present illness: Mr. Wharton is a 78 year old male with diabetes hypertension hypothyroidism BPH who is currently hospitalized for left lower extremity cellulitis and metabolic encephalopathy which is thought to be secondary to infection versus possible stroke who gastroenterology was consulted for dysphagia. Patient reports new onset dysphagia started few days ago. He denied melena hematochezia unintentional weight loss or other GI symptoms. MRI brain on 07/20/2023 showed subacute ischemia involving the anterior aspect of cerebral hemisphere but also showed cortical atrophy and severe chronic microvascular ischemic changes which have progressed since 2016. ST completed MBS which showed moderate oral and mild pharyngeal dysphagia also showed suspected esophageal dysphagia. cc:: CC: Luigi Napoles DO Review of Systems Review of Systems All other systems reviewed & are negative unless noted below or in HPI [facility] Medical History (Updated 07/25/23 @ 10:04 by Brenda Zheng MD) Hypertension Hyperlipidemia Diabetes Stroke Surgical History (Updated 07/22/23 @ 07:08 by Edith Eldridge RN) History of back surgery L5 Social History Smoking Status: Former smoker Tobacco Type: cigarettes Substance Use Type: None Meds Medications and Allergies Allergies azithromycin Adverse Reaction (Verified 07/19/23 16:30) Blister ceftriaxone [From Rocephin] Adverse Reaction (Verified 07/19/23 16:30) Blister Home Medications latanoprost 0.005 % eye drops 1 drp Eye-Both QHS 02/25/21 [History Confirmed 07/20/23] levothyroxine 75 mcg tablet 100 mcg PO DAILY 02/25/21 [History Confirmed 07/20/23] tamsulosin 0.4 mg capsule 0.4 mg PO DAILY 02/25/21 [History Confirmed 07/20/23] venlafaxine 150 mg capsule,extended release 24 hr 150 mg PO DAILY 02/25/21 [History Confirmed 07/20/23] apixaban 2.5 mg tablet (Eliquis) 2.5 mg PO BID 07/20/23 [History Confirmed 07/20/23] aripiprazole 2 mg tablet 2 mg PO DAILY 07/20/23 [History Confirmed 07/20/23] collagenase clostridium histo. 250 unit/gram topical ointment (Santyl) 1 applic topical TID 07/20/23 [History Confirmed 07/20/23] insulin NPH isoph U-100 human 100 unit/mL (3 mL) subcutaneous pen (Novolin N FlexPen) 8 unit subcut QPM 07/20/23 [History Confirmed 07/20/23] insulin NPH isoph U-100 human 100 unit/mL (3 mL) subcutaneous pen (Novolin N FlexPen) 12 unit subcut QAM 07/20/23 [History Confirmed 07/20/23] insulin glargine 100 unit/mL (3 mL) subcutaneous pen (Lantus Solostar U-100 Insulin) 20 unit subcut DAILY 07/20/23 [History Confirmed 07/20/23] levothyroxine 100 mcg tablet 100 mcg PO DAILY 07/20/23 [History Confirmed 07/20/23] pantoprazole 40 mg tablet,delayed release 40 mg PO DAILY 07/20/23 [History Confirmed 07/20/23] tamsulosin 0.4 mg capsule 0.4 mg PO DAILY 07/20/23 [History Confirmed 07/20/23] timolol maleate 0.5 % eye drops 1 drp Eye-Both QAM 07/20/23 [History Confirmed 07/20/23] Exam Physical Exam Vital Signs: Temp Pulse Resp BP Pulse Ox O2 Del Method O2 Flow Rate 97.6 F 87 22 125/87 96 Nasal Cannula 2 07/25/23 04:00 07/25/23 04:00 07/25/23 04:00 07/25/23 04:00 07/25/23 04:00 07/25/23 04:00 07/25/23 04:00 Narrative: General appearance: NAD Skin: No jaundice Head: NC/AT Eyes: Anicteric Neck: Supple Lungs: Normal respiratory effort, no use of accessory muscles Abdomen: Soft, nondistended Neuro: Ox3. Results - Gastroenterology Labs Labs: Laboratory Results - last 24 hr 07/24/23 07/24/23 07/24/23 11:29 12:16 16:18 PHA Creatinine Clear Sodium Potassium Chloride Carbon Dioxide Anion Gap BUN Creatinine Est GFR (CKD-EPI) Glucose POC Glucose 214 153 POC Glucose Comment Glu2: cleaned meter Calcium Vancomycin Trough 17.0 07/24/23 07/25/23 07/25/23 20:43 06:20 06:31 PHA Creatinine Clear 77.38 Sodium 138 Potassium 4.1 Chloride 98 Carbon Dioxide 33.7 H Anion Gap 10.4 BUN 12 Creatinine 1.20 Est GFR (CKD-EPI) > 60.0 Glucose 141 H POC Glucose 186 177 POC Glucose Comment Calcium 9.0 Vancomycin Trough A&P - Gastroenterology Assessment/Plan (1) Dysphagia: (2) Altered mental status: (3) Hemiparesis affecting left side as late effect of cerebrovascular accident: (4) Cellulitis: Plan Mr. Wharton is a 78 year old male with diabetes hypertension hypothyroidism BPH, history of CVA with severe left spastic hemiparesis and some right-sided facial weakness who is currently hospitalized for left lower extremity cellulitis and metabolic encephalopathy which is thought to be secondary to infection versus possible stroke who gastroenterology was consulted for dysphagia. -Patient has new onset dysphagia in the setting of encephalopathy secondary to infection versus possible new CVA/TIA and history of previous CVA in 2005. MRI brain on 07/20/2023 showed subacute ischemia involving the anterior aspect of cerebral hemisphere but also showed cortical atrophy and severe chronic microvascular ischemic changes which have progressed since 2016. ST completed MBS which showed moderate oral and mild pharyngeal dysphagia also showed suspected esophageal dysphagia. -Patient needs nonemergent/elective EGD which can be done as an outpatient afterpatient recovers from the current acute illness including cellulitis/sepsis and encephalopathy. -Continue PPI in the meanwhile -Dysphagia precautions explained including: sit upright or stand after eating for at least two hours, lubricate your food with water or gravy, chew food slowly and eat smaller bites of food, increase number of liquid based meals in your diet, and straighten the back during swallowing. Documented By: Brenda Zheng MD 07/25/23909 Signed By: <Electronically signed by Brenda Zheng MD> 07/25/23 5105 [facility] Work Phone: [phone]) 444-382004-09-2024 Progress note Author Luigi Napoles [facility] July 24, 2023 2:46pm Note Date/Time July 24, 2023 11:4 9am [facility] [address] [place] [address] Hospitalist Progress Note Signed Patient: Corona Wharton MR#: [id number] : 1945 Acct:[id number] Age/Sex: 78 / M Adm Date: 4 Loc: Room: [address] [place] [address] Type: ADM IN Attending Dr: Luigi Napoles DO Copies to: ~ Date of Service: 07/24/2023 Subjective Subjective Narrative: Patient seen and examined. present bedside. He offers no complaints. Indicates no pain legs. reports chronic erythema and dry skin but that it had gotten worse. Exam Physical Exam Vital Signs: Temp Pulse Resp BP Pulse Ox O2 Del Method O2 Flow Rate 98 F 85 20 125/68 96 Nasal Cannula 5 07/24/23 07:32 07/24/23 07:32 07/24/23 07:32 07/24/23 07:32 07/24/23 07:32 07/24/23 08:00 07/24/23 08:00 Narrative: CONST- alert, in bed, chronically ill appearing CARD- RRR no abnormal heart tones PULM- dimin without wheeze or rhonchi, O2, no cough, speaks shortened sentence ABD- S/NT, NABS, moribid obesity EXTREM- 1+ edema BLE, calves nontender, LLE erythema knee down, RLE colin erythema chronic with dry flaking skin Objective Lab Results 07/24/23 03:11 07/24/23 03:11 Microbiology Results Microbiology 07/22/23 11:02 Blood - Right Hand Blood Culture - Preliminary No Growth 2 Days 07/22/23 11:01 Blood - Right Arm Blood Culture - Preliminary No Growth 2 Days 07/19/23 22:26 Blood - Left Antecubital Blood Culture - Preliminary No Growth 4 Days 07/19/23 22:20 Blood - Right Antecubital Blood Culture - Preliminary No Growth 4 Days Meds Allergies and Active Meds Allergies azithromycin Adverse Reaction (Verified 07/19/23 16:30) Blister ceftriaxone [From Rocephin] Adverse Reaction (Verified 07/19/23 16:30) Blister Active Meds: Active Medications Generic Name Dose Route Start Last Admin Trade Name Freq PRN Reason Stop Dose Admin Acetaminophen 500 mg 07/20/23 17:41 07/24/23 08:04 Acetaminophen 500 Mg Tablet PO 07/19/24 17:40 500 mg Q6H PRN Administration Fever or Pain Clopidogrel Bisulfate 75 mg 07/21/23 14:00 07/24/23 08:04 Clopidogrel Bisulfate 75 Mg Tablet PO 07/20/24 13:59 75 mg DAILY TATIANNA Administration Dextrose 0 gm 07/20/23 14:12 Dextrose 50% In Water 25 Gm/50 Ml Syringe IV-PUSH 07/19/24 14:11 PRN PRN Hypoglycemia Glucose 0 gm 07/20/23 14:12 Dextrose 40% Gel 15 Gm Tube PO 07/19/24 14:11 PRN PRN Hypoglycemia Piperacillin Sod/Tazobactam Sod 4.5 gm in 100 mls @ 25 mls/hr 07/20/23 10:30 07/24/23 10:21 Zosyn IV 300 mls/hr Q8H TATIANNA Administration Vancomycin HCl 0.75 gm in 250 mls @ 250 mls/hr 07/22/23 13:00 07/24/23 00:34 Vancomycin IV 250 mls/hr Q12H TATIANNA Administration Insulin Aspart 0 units 07/20/23 17:00 07/24/23 11:40 Insulin Aspart 300 Units/3 Ml Insuln.Pen SUBCUT 07/19/24 16:59 3 units TID.WM.HS TATIANNA Administration Protocol Insulin Glargine 20 units 07/21/23 09:00 07/24/23 08:05 Insulin Glargine 300 Units/3 Ml Insuln.Pen SUBCUT 07/20/24 08:59 20 units DAILY TATIANNA Administration Latanoprost 1 drops 07/20/23 22:00 07/23/23 22:00 Latanoprost 0.005% Op Soln 50 Drops/2.5 Ml Bottle EYE-BOTH 07/19/24 21:59 1drops QHS TATIANNA Administration Levothyroxine Sodium 100 mcg 07/21/23 09:00 07/24/23 05:49 Levothyroxine 100 Mcg Tablet PO 07/20/24 08:59 100 mcg DAILY@0630 TATIANNA Administration Pantoprazole Sodium 40 mg 07/23/23 21:00 07/24/23 08:04 Pantoprazole 40 Mg Tablet. PO 07/22/24 20:59 40 mg BID TATIANNA Administration Polyethylene Glycol 17 gm 07/24/23 10:00 07/24/23 10:23 Polyethylene Glycol 3350 17 Gm Powd.Pack PO 07/23/24 09:59 17 gm DAILY TATIANNA Administration Sennosides 2 tab 07/24/23 22:00 Sennosides 8.6 Mg Tablet PO 07/23/24 21:59 QHS TATIANNA Sodium Chloride 0 ml 07/19/23 16:29 07/24/23 01:51 Sodium Chloride 0.9 % 10 Ml Syringe IV-PUSH 07/18/24 16:28 10 ml PRN PRN Administration Flush Tamsulosin HCl 0.4 mg 07/20/23 16:45 07/24/23 08:04 Tamsulosin 0.4 Mg Cap.Er.24h PO 07/19/24 16:44 0.4 mg DAILY TATIANNA Administration Timolol Maleate 1 drops 07/21/23 09:00 07/24/23 08:04 Timolol Mal 0.5% Op Soln 100 Drops/5 Ml Bottle EYE-BOTH 07/20/24 08:59 1 drops QAM TATIANNA Administration Vancomycin HCl 1 each 07/20/23 10:16 Vancomycin - Pharmacy Dosing 1 Each Miscell IV ONCE PRN ZZ.Pharmacy Consult Protocol Venlafaxine HCl 150 mg 07/20/23 16:45 07/24/23 08:04 Venlafaxine Er 150 Mg Cap.Er.24h PO 07/19/24 16:44 150 mg DAILY TATIANNA Administration A&P - Hospitalist Assessment/Plan (1) Generalized weakness: (2) Altered mental status: (3) Leukocytosis: (4) Hypoxia: Plan LLE cellulitis Venous Stasis Metabolic encephalopathy likely due to infection versus possible stroke, improved Dysphagia Leukocytosis -WBC improving, afebrile. UA noninfectious, blood culture NGTD, CXR nonacute -Zosyn and vancomycin -MRI brain-subacute ischemia. Neurology does not think there are any changes compared to his MRI from 2016. Initiated on clopidogrel, apixaban discontinued. Aripiprazole also DC'd as it might be contributing to rigidity or bradykinesia per neurology, appreciate recommendations -Head CT -without acute findings, shows encephalomalacia related to a right pontine remote infarct and bilateral cerebellar hemispheric infarct -Echocardiogram - EF of 55-60% -MBS done per ST, on nectar thick liquids and mechanical soft diet -GI consult with dysphagia, dysmotility as recommended by ST -therapy recs SNF- plan [facility] precert pending Hypomagnesia -replete, trend lab Chronic conditions: 1. T2DM?fingerstick and SSIC, long-acting insulin. A1c 11.1 2. Hypertension?hydralazine prn, no chronic meds 3. Hypothyroidism?levothyroxine 4. GERD? pantoprazole 5. BPH?tamsulosin 6. Glaucoma- latanoprost, timolol 7. Depression- Venlafaxine. Aripiprazole stopped per neurology as may be contributing to rigidity/ bradykinesia I personally saw this patient on the day of the encounter, reviewed the history,performed the arriaga elements of the exam, formulated the plan of care and confirmed the Nurse Practitioner's assessment and plan. - Luigi Napoles DO Documented By: Monica Crocker APRN 01/07 1149 Signed By: <Electronically signed by VIPIN Crocker> 07/24/23 1409 <Electronically signed by Luigi Napoles DO> 07/24/23 1446 [facility] Work Phone: [phone]) 567-975304-08-2024 Progress note Author Luigi Napoles [facility] July 23, 2023 2:31pm Note Date/Time July 23, 2023 10:2 9am [facility] [address] [place] [address] Hospitalist Progress Note Signed Patient: Corona Wharton MR#: [id number] : 1945 Acct:[id number] Age/Sex: 78 / M Adm Date: 4 Loc: 4 Room: [address] [place] [address] Type: ADM IN Attending Dr: Luigi Napoles DO Copies to: ~ Date of Service: 07/23/2023 Subjective Subjective Narrative: Patient seen and examined. LLE with some erythema, this is my first time seeingthe patient- bedside nurse reports erythema improved from over weekend. Patientreports minimal discomfort at site. Complaints of regurgitation of foot - ST has seen the patient and he is on [facility] soft ground meats with nectar thickened liquids. Oriented today and conversive. Appears chronically debilitated however staff indicates he pivot transfers at home. He offers no other complaints at this time. Still on O2 but states he does not wear at home. Exam Physical Exam Vital Signs: Temp Pulse Resp BP Pulse Ox O2 Del Method O2 Flow Rate 98.0 F 102 H 20 150/93 H 93 L Nasal Cannula 4 07/22/23 20:00 07/23/23 08:00 07/23/23 08:00 07/23/23 08:00 07/23/23 08:00 07/23/23 08:00 07/23/23 08:00 Narrative: CONST- alert, in bed, chronically ill appearing CARD- RRR no abnormal heart tones PULM- dimin without wheeze or rhonchi, O2, no cough, speaks shortened sentence ABD- S/NT, NABS, moribid obesity EXTREM- 1+ edema BLE, calves nontender, LLE erythema knee down Objective Lab Results 07/23/23 04:38 07/23/23 04:38 Microbiology Results Microbiology 07/19/23 22:26 Blood - Left Antecubital Blood Culture - Preliminary No Growth 3 Days 07/19/23 22:20 Blood - Right Antecubital Blood Culture - Preliminary No Growth 3 Days Meds Allergies and Active Meds Allergies azithromycin Adverse Reaction (Verified 07/19/23 16:30) Blister ceftriaxone [From Rocephin] Adverse Reaction (Verified 07/19/23 16:30) Blister Active Meds: Active Medications Generic Name Dose Route Start Last Admin Trade Name Freq PRN Reason Stop Dose Admin Acetaminophen 500 mg 07/20/23 17:41 07/22/23 05:07 Acetaminophen 500 Mg Tablet PO 07/19/24 17:40 500 mg Q6H PRN Administration Fever or Pain Clopidogrel Bisulfate 75 mg 07/21/23 14:00 07/23/23 08:58 Clopidogrel Bisulfate 75 Mg Tablet PO 07/20/24 13:59 75 mg DAILY TATIANNA Administration Dextrose 0 gm 07/20/23 14:12 Dextrose 50% In Water 25 Gm/50 Ml Syringe IV-PUSH 07/19/24 14:11 PRN PRN Hypoglycemia Glucose 0 gm 07/20/23 14:12 Dextrose 40% Gel 15 Gm Tube PO 07/19/24 14:11 PRN PRN Hypoglycemia Piperacillin Sod/Tazobactam Sod 4.5 gm in 100 mls @ 25 mls/hr 07/20/23 10:30 07/23/23 10:25 Zosyn IV 300 mls/hr Q8H TATIANNA Administration Vancomycin HCl 0.75 gm in 250 mls @ 250 mls/hr 07/22/23 13:00 07/23/23 00:36 Vancomycin IV 250 mls/hr Q12H TATIANNA Administration Insulin Aspart 0 units 07/20/23 17:00 07/23/23 08:55 Insulin Aspart 300 Units/3 Ml Insuln.Pen SUBCUT 07/19/24 16:59 2 units TID.WM.HS TATIANNA Administration Protocol Insulin Glargine 20 units 07/21/23 09:00 07/23/23 08:55 Insulin Glargine 300 Units/3 Ml Insuln.Pen SUBCUT 07/20/24 08:59 20 units DAILY TATIANNA Administration Latanoprost 1 drops 07/20/23 22:00 07/22/23 21:47 Latanoprost 0.005% Op Soln 50 Drops/2.5 Ml Bottle EYE-BOTH 07/19/24 21:59 1drops QHS TATIANNA Administration Levothyroxine Sodium 100 mcg 07/21/23 09:00 07/23/23 06:44 Levothyroxine 100 Mcg Tablet PO 07/20/24 08:59 100 mcg DAILY@0630 TATIANNA Administration Pantoprazole Sodium 40 mg 07/20/23 16:45 07/23/23 08:58 Pantoprazole 40 Mg Tablet.Dr PO 07/19/24 16:44 40 mg DAILY TATIANNA Administration Sodium Chloride 0 ml 07/19/23 16:29 07/21/23 18:13 Sodium Chloride 0.9 % 10 Ml Syringe IV-PUSH 07/18/24 16:28 10 ml PRN PRN Administration Flush Tamsulosin HCl 0.4 mg 07/20/23 16:45 07/23/23 08:58 Tamsulosin 0.4 Mg Cap.Er.24h PO 07/19/24 16:44 0.4 mg DAILY TATIANNA Administration Timolol Maleate 1 drops 07/21/23 09:00 07/23/23 08:56 Timolol Mal 0.5% Op Soln 100 Drops/5 Ml Bottle EYE-BOTH 07/20/24 08:59 1 drops QAM TATIANNA Administration Vancomycin HCl 1 each 07/20/23 10:16 Vancomycin - Pharmacy Dosing 1 Each Miscell IV ONCE PRN ZZ.Pharmacy Consult Protocol Venlafaxine HCl 150 mg 07/20/23 16:45 07/23/23 08:58 Venlafaxine Er 150 Mg Cap.Er.24h PO 07/19/24 16:44 150 mg DAILY TATIANNA Administration A&P - Hospitalist Assessment/Plan (1) Generalized weakness: (2) Altered mental status: (3) Leukocytosis: (4) Hypoxia: Plan LLE cellulitis Metabolic encephalopathy likely due to infection versus possible stroke, improved Dysphagia Leukocytosis -WBC improving, afebrile. UA noninfectious, blood culture NGTD, CXR nonacute -Zosyn and vancomycin -MRI brain-subacute ischemia. Neurology does not think there are any changes compared to his MRI from 2016. Initiated on clopidogrel, apixaban discontinued. Aripiprazole also DC'd as it might be contributing to rigidity or bradykinesia per neurology, appreciate recommendations -Head CT -without acute findings, shows encephalomalacia related to a right pontine remote infarct and bilateral cerebellar hemispheric infarct -Echocardiogram - EF of 55-60% -MBS done per ST, on nectar thick liquids and mechanical soft diet -therapy Hypomagnesia -replete, trend lab Chronic conditions: 1. T2DM?fingerstick and SSIC, long-acting insulin. A1c 11.1 2. Hypertension?hydralazine prn, no chronic meds 3. Hypothyroidism?levothyroxine 4. GERD? pantoprazole 5. BPH?tamsulosin 6. Glaucoma- latanoprost, timolol 7. Depression- Venlafaxine. Aripiprazole stopped per neurology as may be contributing to rigidity/ bradykinesia I personally saw this patient on the day of the encounter, reviewed the history,performed the arriaga elements of the exam, formulated the plan of care and confirmed the Nurse Practitioner's assessment and plan. - Luigi Napoles DO Documented By: Monica Crocker APRN 12/07 1028 Signed By: <Electronically signed by VIPIN Crocker> 07/23/23 1252 <Electronically signed by Luigi Napoles DO> 07/23/23 1431 [facility] Work Phone: [phone] Progress note Author Luigi Napoles [facility] July 22, 2023 2:21pm Note Date/Time July 22, 2023 11:2 3am [facility] [address] [place] [address] Hospitalist Progress Note Signed Patient: Corona Wharton MR#: [id number] : 1945 Acct:[id number] Age/Sex: 78 / M Adm Date: 4 Loc: Room: [address] [place] [address] Type: ADM IN Attending Dr: Luigi Napoles DO Copies to: ~ Date of Service: 07/22/2023 Subjective Subjective Narrative: Patient seen and examined at bedside, no acute events overnight. Alert and awake having breakfast, denies any pain or discomfort. On 2 L of oxygen with saturations over 90%, no abdominal pain, fevers or chills. Erythema to left lower extremity, significantly improved. Exam Physical Exam Vital Signs: Temp Pulse Resp BP Pulse Ox O2 Del Method O2 Flow Rate 98.4 F 97 22 131/82 92 L Nasal Cannula 2 07/22/23 04:00 07/22/23 04:00 07/22/23 04:00 07/22/23 04:00 07/22/23 04:00 07/22/23 08:00 07/22/23 08:00 Narrative: CONST-morbidly obese, alert, resting comfortably in bed CARDIAC-normal rate, regular rhythm, normal S1 & S2. PULM-diminished without wheeze or rhonchi, RA, no accessory muscle use or cough noted ABD - Soft. Bowel sounds are normal. No distention No tenderness EXTREM-no edema BLE calves nontender SKIN-erythema to right lower extremity MS- MAEX3, left side flaccid spontaneously with equal with equal strength Objective Lab Results 07/22/23 04:31 07/22/23 04:31 Microbiology Results Microbiology 07/19/23 22:26 Blood - Left Antecubital Blood Culture - Preliminary No Growth 2 Days 07/19/23 22:20 Blood - Right Antecubital Blood Culture - Preliminary No Growth 2 Days 07/19/23 19:30 Urine - Clean-Voided Midstream Urine Culture - Final 25,000 colonies/ml mixed bacterial skin contaminants 2 Days Meds Allergies and Active Meds Allergies azithromycin Adverse Reaction (Verified 07/19/23 16:30) Blister ceftriaxone [From Rocephin] Adverse Reaction (Verified 07/19/23 16:30) Blister Active Meds: Active Medications Generic Name Dose Route Start Last Admin Trade Name Freq PRN Reason Stop Dose Admin Acetaminophen 500 mg 07/20/23 17:41 07/22/23 05:07 Acetaminophen 500 Mg Tablet PO 07/19/24 17:40 500 mg Q6H PRN Administration Fever or Pain Clopidogrel Bisulfate 75 mg 07/21/23 14:00 07/21/23 13:57 Clopidogrel Bisulfate 75 Mg Tablet PO 07/20/24 13:59 75 mg DAILY TATIANNA Administration Dextrose 0 gm 07/20/23 14:12 Dextrose 50% In Water 25 Gm/50 Ml Syringe IV-PUSH 07/19/24 14:11 PRN PRN Hypoglycemia Glucose 0 gm 07/20/23 14:12 Dextrose 40% Gel 15 Gm Tube PO 07/19/24 14:11 PRN PRN Hypoglycemia Piperacillin Sod/Tazobactam Sod 4.5 gm in 100 mls @ 25 mls/hr 07/20/23 10:30 07/22/23 06:13 Zosyn IV Infused Q8H TATIANNA Infusion Vancomycin HCl 1 gm in 250 mls @ 250 mls/hr 07/20/23 23:00 07/21/23 23:30 Vancomycin IV Infused Q12H TATIANNA Infusion Insulin Aspart 0 units 07/20/23 17:00 07/21/23 21:27 Insulin Aspart 300 Units/3 Ml Insuln.Pen SUBCUT 07/19/24 16:59 2 units TID.WM.HS TATIANNA Administration Protocol Insulin Glargine 20 units 07/21/23 09:00 07/21/23 08:26 Insulin Glargine 300 Units/3 Ml Insuln.Pen SUBCUT 07/20/24 08:59 20 units DAILY TATIANNA Administration Latanoprost 1 drops 07/20/23 22:00 04/06/24 21:29 Latanoprost 0.005% Op Soln 50 Drops/2.5 Ml Bottle EYE-BOTH 07/19/24 21:59 1drops QHS TATIANNA Administration Levothyroxine Sodium 100 mcg 07/21/23 09:00 07/22/23 05:55 Levothyroxine 100 Mcg Tablet PO 07/20/24 08:59 100 mcg DAILY@0630 TATIANNA Administration Pantoprazole Sodium 40 mg 07/20/23 16:45 07/21/23 08:28 Pantoprazole 40 Mg Tablet.Dr PO 07/19/24 16:44 40 mg DAILY TATIANNA Administration Sodium Chloride 0 ml 07/19/23 16:29 07/21/23 18:13 Sodium Chloride 0.9 % 10 Ml Syringe IV-PUSH 07/18/24 16:28 10 ml PRN PRN Administration Flush Tamsulosin HCl 0.4 mg 07/20/23 16:45 07/21/23 08:28 Tamsulosin 0.4 Mg Cap.Er.24h PO 07/19/24 16:44 0.4 mg DAILY TATIANNA Administration Timolol Maleate 1 drops 07/21/23 09:00 07/21/23 08:29 Timolol Mal 0.5% Op Soln 100 Drops/5 Ml Bottle EYE-BOTH 07/20/24 08:59 1 drops QAM TATIANNA Administration Vancomycin HCl 1 each 07/20/23 10:16 Vancomycin - Pharmacy Dosing 1 Each Miscell IV ONCE PRN ZZ.Pharmacy Consult Protocol Venlafaxine HCl 150 mg 07/20/23 16:45 07/21/23 08:28 Venlafaxine Er 150 Mg Cap.Er.24h PO 07/19/24 16:44 150 mg DAILY TATIANNA Administration A&P - Hospitalist Assessment/Plan (1) Generalized weakness: (2) Altered mental status: (3) Leukocytosis: (4) Hypoxia: Plan Possible right LE cellulitis Metabolic encephalopathy likely due to infection versus possible stroke Dysphagia Leukocytosis Mentation has improved since admission * WBC now trending upward 14.5>>,16.1,afebrile, unclear why, left lower extremity redness is significantly improved., On room air no coughing, urinalysis was noninfectious on admission. Will repeat blood cultures, initial blood cultures showing no growth in 2 days. * Continue Zosyn and vancomycin * MRI of the brain with some subacute ischemia, neurology does not think there is any changes compared to his MRI from 2016. Initiated on clopidogrel, Eliquis discontinued. 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 * Echocardiogram with EF of 55-60% * Status post barium swallow, on nectar thick liquids and mechanical soft diet * PT/OT/ST Hypomagnesia?replete * Continue to monitor Chronic conditions: 1. Type 2 diabetes?Accu-Cheks before meals and at bedtime, SSI, long-acting insulin. A1c 11.1 2. Hypertension?blood pressure uncontrolled, resume home medication, hydralazine as needed 3. Hypothyroidism?levothyroxine, check TSH 4. GERD?on pantoprazole 5. BPH?on Flomax CODE STATUS: Full code DVT prophylaxis: Eliquis Discharge disposition: I personally saw this patient on the day of the encounter, reviewed the history,performed the arriaga elements of the exam, formulated the plan of care and confirmed the Nurse Practitioner's assessment and plan. - Luigi Napoles DO Documented By: Sarah Herron APRN 07/22/23 1107 Signed By: <Electronically signed by VIPIN Herron> 07/22/23 1128 <Electronically signed by Luigi Napoles DO> 07/22/23 1421 [facility] Work Phone: [phone]) [phone] Progress note Author Matthew Bean [facility] July 22, 2023 11:17am Note Date/Time July 22, 2023 10:1 6am [facility] [address] [place] [address] Neurology Progress Note Signed Patient: Corona Wharton MR#: [id number] : 1945 Acct:[id number] Age/Sex: 78 / M Adm Date: 4 Loc: Room: [address] [place] [address] Type: ADM IN Attending Dr: Luigi Napoles DO Copies to: ~ Date of Service: 07/22/2023 Exam Physical Exam Vital Signs: Temp Pulse Resp BP Pulse Ox O2 Del Method O2 Flow Rate 98.4 F 97 22 131/82 92 L Nasal Cannula 2 07/22/23 04:00 07/22/23 04:00 07/22/23 04:00 07/22/23 04:00 07/22/23 04:00 07/22/23 08:00 07/22/23 08:00 Objective Vital Signs Vital Signs: Vital Signs - 24 hr 07/21/23 12:00 07/21/23 15:27 07/21/23 15:37 Temperature 98.5 F 97.4 F L Pulse Rate 94 93 Respiratory Rate 20 15 Blood Pressure 118/70 126/85 02 Sat by Pulse Oximetry 92 L 91 L Oxygen Delivery Method Nasal Cannula Nasal Cannula Nasal Cannula Oxygen Flow Rate 2 2 07/21/23 16:00 07/21/23 19:38 07/21/23 20:00 Temperature 98.5 F Pulse Rate 95 Respiratory Rate 22 Blood Pressure 130/73 02 Sat by Pulse Oximetry 91 L 92 L Oxygen Delivery Method Nasal Cannula Nasal Cannula Nasal Cannula Oxygen Flow Rate 2 2 2 07/22/23 00:00 07/22/23 00:00 07/22/23 04:00 Temperature 98.1 F 98.4 F Pulse Rate 98 97 Respiratory Rate 24 22 Blood Pressure 123/76 131/82 02 Sat by Pulse Oximetry 92 L 92 L Oxygen Delivery Method Nasal Cannula Nasal Cannula Nasal Cannula Oxygen Flow Rate 2 2 2 07/22/23 08:00 Temperature Pulse Rate Respiratory Rate Blood Pressure 02 Sat by Pulse Oximetry Oxygen Delivery Method Nasal Cannula Oxygen Flow Rate 2 Labs 07/22/23 04:31 07/22/23 04:31 Therapy Recommendations Therapy Recommendations: ST Recommendations Level of Supervision Constant Supervision Liquid Consistency Green Tree-Thick Liquids,Thin Water Between Meals Recommendation Solid Consistency Mechanical Soft Solids Recommendations Meat Consistency Ground Meats,Extra Bowl of Gravy Recommendations Medication Administration Whole Pills,Give Pills in Applesauce Dysphagia Swallow Precautions/ Sitting Upright (90 deg),Small Bites/Sips,Pacing Strategies /Slow-Rate Referral Recommendations Modified Barium Swallow Assessment/Plan (1) Generalized weakness: (2) Hemiparesis affecting left side as late effect of cerebrovascular accident: Plan CONSULT REASON: Concern for stroke SUBJECTIVE: He feels about the same as yesterday. His biggest concern still remains his swallow. He is sitting up in a chair. No overnight events. No new symptoms toadd to review of systems. EXAMINATION: Seated in chair. No acute distress. Occasional coughing and having trouble clearing secretions. No deformities or trauma. Limbs are warm. No significantedema. Possible mild increased work of breathing. Nasal cannula in place. Visualized skin is with age-related findings and then some potential cellulitic findings on the right lower extremity. Affect normal. He is alert. Cooperative. Attention seems normal. Speech is fluent and with some baseline moderate dysarthria, sometimes unintelligible. Pupils appear equal. Hearing seems intact. He has some right facial weakness most evidenced by a delayed andweak right eyelid closure. Tongue is midline. He has spastic left hemiparesis,flexion contracture and left hand. Reflexes seem hypoactive throughout. Light touch is intact. 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 -MRI brain from July 20, 2023 is read by the radiologist as having some subacuteischemia in the inferior aspect of the cerebellar hemispheres with associated restricted diffusion and abnormal T2/FLAIR signal. I personally reviewed the MRI images and compared them to the MRI from 2016 and, allowing for a change of MRI machine and different appearing quality of pictures, I do not think there isany significant difference between the studies. 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 He is here with some generalized weakness, and given that he has chronic left spastic hemiparesis, the generalized weakness manifests as or mimics new right hemiparesis. There are no acute findings on MRI to explain the generalized weakness and no reason to have any right-sided weakness. I do not think he has had any new stroke. I personally reviewed the MRI pictures from July 20, 2023 and compared them to 2016 MRI pictures and I think they look the same, allowing for some differences between image characteristics and quality because the MRI machine is different now. I do not think there is any true restricted diffusion involving the cerebellar hemispheres. The intracranial and extracranial cerebral blood supply looks quite good. PLAN: 1. I put him back on clopidogrel 75 mg daily and discontinued the apixaban 2.5 mg twice daily. Unclear why they made the switch in the outpatient setting a few months ago, as there seems to be no clear indication for the apixaban and itis excessively expensive for them as well. I also stopped the aspirin that was started here. 2. I stopped the aripiprazole. I do not want it to contribute to any rigidity or bradykinesia in this spastic hemiparetic man. 3. Ongoing speech therapy, he had modified barium swallow today 4. No other recommendations from neurology standpoint at this time Documented By: Matthew Bean DO 07/22/23 1015 Signed By: <Electronically signed by Matthew Bean DO> 07/22/23 2952 [facility] Work Phone: [phone]) [phone] Progress note Author Luigi Napoles [facility] July 21, 2023 7:45pm Note Date/Time July 20, 2023 1:18 pm [facility] [address] [place] [address] Hospitalist Progress Note Signed Patient: Corona Wharton MR#: [id number] : 1945 Acct:[id number] Age/Sex: 78 / M Adm Date: 4 Loc: Room: [address] [place] [address] Type: ADM IN Attending Dr: Luigi Napoles DO Copies to: ~ Date of Service: 07/20/2023 Subjective Subjective Narrative: Seen and evaluated at bedside, no acute events overnight. Alert and oriented x 2, denies any pain or discomfort. On 2 L of oxygen with oxygen saturations in the high 90s, no nausea vomiting or diarrhea, afebrile. Exam Physical Exam Vital Signs: Temp Pulse Resp BP Pulse Ox O2 Del Method O2 Flow Rate 97.3 F L 92 16 166/92 H 93 L Nasal Cannula 2 07/20/23 08:00 07/20/23 08:00 07/20/23 08:00 07/20/23 08:00 07/20/23 08:00 07/20/23 08:00 07/20/23 08:00 Narrative: CONST-morbidly obese, HEAD - Normocephalic and atraumatic EENT-Sclera nonicteric and conjunctive are nonerythemic, moist oral mucosa, pharynx clear NECK-Supple, no cervical lymphadenopathy CARDIAC-normal rate, regular rhythm, normal S1 & S2. PULM-diminished without wheeze or rhonchi, RA, no accessory muscle use or cough noted ABD - Soft. Bowel sounds are normal. No distention No tenderness EXTREM-no edema BLE calves nontender SKIN-erythema to right lower extremity MS- MAEX3, left side flaccid spontaneously with equal with equal strength NEURO- A&Ox3 speech clear and tongue midline, equal facial symmetry no focal motor deficits PSYCH-Mood, affect and behavior appropriate Objective Lab Results 07/21/23 03:28 07/21/23 03:28 Microbiology Results Microbiology 07/19/23 16:31 Nasopharyngeal SARS-CoV-2, Influenza & RSV (PCR) - Final Meds Allergies and Active Meds Allergies azithromycin Adverse Reaction (Verified 07/19/23 16:30) Blister ceftriaxone [From Rocephin] Adverse Reaction (Verified 07/19/23 16:30) Blister Active Meds: Active Medications Generic Name Dose Route Start Last Admin Trade Name Freq PRN Reason Stop Dose Admin Aspirin 81 mg 07/20/23 11:00 Aspirin 81 Mg Tab.Chew PO 07/19/24 10:59 DAILY TATIANNA Piperacillin Sod/Tazobactam Sod 4.5 gm in 100 mls @ 25 mls/hr 07/20/23 10:30 Zosyn IV Q8H TATIANNA Sodium Chloride 0 ml 07/19/23 16:29 07/20/23 08:06 Sodium Chloride 0.9 % 10 Ml Syringe IV-PUSH 07/18/24 16:28 10 ml PRN PRN Administration Flush A&P - Hospitalist Assessment/Plan (1) Generalized weakness: (2) Altered mental status: (3) Leukocytosis: (4) Hypoxia: Plan Possible right LE cellulitis Metabolic encephalopathy likely due to infection versus possible stroke Leukocytosis * WBC 14.5, afebrile * Continue Zosyn and vancomycin * Blood cultures pending results * Obtain venous Dopplers to rule out DVT to the right lower extremity * Continue wound care * Continue aspirin 81 mg and statin for stroke prevention * Consult neurology * Echocardiogram with EF of 55-60% * PT/OT/ST Hypomagnesia?replete * Continue to monitor Chronic conditions: 1. Type 2 diabetes?Accu-Cheks before meals and at bedtime, SSI, long-acting insulin. A1c 11.1 2. Hypertension?blood pressure uncontrolled, resume home medication, hydralazine as needed 3. Hypothyroidism?levothyroxine, check TSH 4. GERD?on pantoprazole 5. BPH?on Flomax CODE STATUS: Full code DVT prophylaxis: Celia I personally saw this patient on the day of the encounter, reviewed the history,performed the arriaga elements of the exam, formulated the plan of care and confirmed the Nurse Practitioner's assessment and plan. - Luigi Napoles DO Documented By: Sarah Herron APRN 07/20/23 1013 Signed By: <Electronically signed by VIPIN Herron> 07/20/23 183 <Electronically signed by Luigi Napolse DO> 07/21/231944 [facility] Work Phone: [phone] 146-677404-06-2024 Progress note Author Sarah Herron [facility] July 21, 2023 1:59pm Note Date/Time July 21, 2023 11:2 7am [facility] [address] [place] [address] Hospitalist Progress Note Signed Patient: Corona Wharton MR#: [id number] : 1945 Acct:[id number] Age/Sex: 78 / M Adm Date: 4 Loc: Room: [address] [place] [address] Type: ADM IN Attending Dr: Luigi Napoles DO Copies to: ~ Date of Service: 07/21/2023 Subjective Subjective Narrative: Patient seen and examined at bedside, resting comfortably in bed. On 2 L of oxygen with saturations above 90%. Denies any pain or discomfort, no fever or chills. Exam Physical Exam Vital Signs: Temp Pulse Resp BP Pulse Ox O2 Del Method O2 Flow Rate 97.7 F 77 20 122/69 95 Nasal Cannula 2 07/21/23 10:02 07/21/23 10:02 07/21/23 10:02 07/21/23 10:02 07/21/23 10:02 07/21/23 10:07/21/23 10:02 Narrative: CONST-morbidly obese, alert, resting comfortably in bed CARDIAC-normal rate, regular rhythm, normal S1 & S2. PULM-diminished without wheeze or rhonchi, RA, no accessory muscle use or cough noted ABD - Soft. Bowel sounds are normal. No distention No tenderness EXTREM-no edema BLE calves nontender SKIN-erythema to right lower extremity MS- MAEX3, left side flaccid spontaneously with equal with equal strength Objective Lab Results 07/21/23 03:28 07/21/23 03:28 Microbiology Results Microbiology 07/19/23 19:30 Urine - Clean-Voided Midstream Urine Culture - Final 25,000 colonies/ml mixed bacterial skin contaminants 2 Days 07/19/23 22:26 Blood - Left Antecubital Blood Culture - Preliminary No Growth 1 Day 07/19/23 22:20 Blood - Right Antecubital Blood Culture - Preliminary No Growth 1 Day Meds Allergies and Active Meds Allergies azithromycin Adverse Reaction (Verified 07/19/23 16:30) Blister ceftriaxone [From Rocephin] Adverse Reaction (Verified 07/19/23 16:30) Blister Active Meds: Active Medications Generic Name Dose Route Start Last Admin Trade Name Freq PRN Reason Stop Dose Admin Acetaminophen 500 mg 07/20/23 17:41 07/20/23 17:50 Acetaminophen 500 Mg Tablet PO 07/19/24 17:40 500 mg Q6H PRN Administration Fever or Pain Apixaban 2.5 mg 07/20/23 21:00 07/21/23 08:28 Apixaban 2.5 Mg Tablet PO 07/19/24 20:59 2.5 mg BID TATIANNA Administration Aripiprazole 2 mg 07/20/23 16:45 07/21/23 08:27 Aripiprazole 2 Mg Tablet PO 07/19/24 16:44 2 mg DAILY TATIANNA Administration Aspirin 81 mg 07/20/23 11:00 07/21/23 08:27 Aspirin 81 Mg Tab.Chew PO 07/19/24 10:59 81 mg DAILY TATIANNA Administration Dextrose 0 gm 07/20/23 14:12 Dextrose 50% In Water 25 Gm/50 Ml Syringe IV-PUSH 07/19/24 14:11 PRN PRN Hypoglycemia Glucose 0 gm 07/20/23 14:12 Dextrose 40% Gel 15 Gm Tube PO 07/19/24 14:11 PRN PRN Hypoglycemia Piperacillin Sod/Tazobactam Sod 4.5 gm in 100 mls @ 25 mls/hr 07/20/23 10:30 07/21/23 10:06 Zosyn IV 25 mls/hr Q8H TATIANNA Administration Vancomycin HCl 1 gm in 250 mls @ 250 mls/hr 07/20/23 23:00 07/21/23 10:16 Vancomycin IV 250 mls/hr Q12H TATIANNA Administration Insulin Aspart 0 units 07/20/23 17:00 07/21/23 08:24 Insulin Aspart 300 Units/3 Ml Insuln.Pen SUBCUT 07/19/24 16:59 2 units TID.WM.HS TATIANNA Administration Protocol Insulin Glargine 20 units 07/21/23 09:00 07/21/23 08:26 Insulin Glargine 300 Units/3 Ml Insuln.Pen SUBCUT 07/20/24 08:59 20 units DAILY TATIANNA Administration Latanoprost 1 drops 07/20/23 22:00 07/20/23 21:06 Latanoprost 0.005% Op Soln 50 Drops/2.5 Ml Bottle EYE-BOTH 07/19/24 21:59 1drops QHS TATIANNA Administration Levothyroxine Sodium 100 mcg 07/21/23 09:00 07/21/23 08:27 Levothyroxine 100 Mcg Tablet PO 07/20/24 08:59 100 mcg DAILY@0630 TATIANNA Administration Pantoprazole Sodium 40 mg 07/20/23 16:45 07/21/23 08:28 Pantoprazole 40 Mg Tablet.Dr PO 07/19/24 16:44 40 mg DAILY TATIANNA Administration Sodium Chloride 0 ml 07/19/23 16:29 07/21/23 10:15 Sodium Chloride 0.9 % 10 Ml Syringe IV-PUSH 07/18/24 16:28 10 ml PRN PRN Administration Flush Tamsulosin HCl 0.4 mg 07/20/23 16:45 07/21/23 08:28 Tamsulosin 0.4 Mg Cap.Er.24h PO 07/19/24 16:44 0.4 mg DAILY TATIANNA Administration Timolol Maleate 1 drops 07/21/23 09:00 07/21/23 08:29 Timolol Mal 0.5% Op Soln 100 Drops/5 Ml Bottle EYE-BOTH 07/20/24 08:59 1 drops QAM TATIANNA Administration Vancomycin HCl 1 each 07/20/23 10:16 Vancomycin - Pharmacy Dosing 1 Each Miscell IV ONCE PRN ZZ.Pharmacy Consult Protocol Venlafaxine HCl 150 mg 07/20/23 16:45 07/21/23 08:28 Venlafaxine Er 150 Mg Cap.Er.24h PO 07/19/24 16:44 150 mg DAILY TATIANNA Administration A&P - Hospitalist Assessment/Plan (1) Leukocytosis: (2) Altered mental status: (3) Generalized weakness: (4) Hypoxia: Plan Possible right LE cellulitis Metabolic encephalopathy likely due to infection versus possible stroke Leukocytosis * WBC unchanged 14.5, >> 14.2, continues afebrile * Continue Zosyn and vancomycin, blood cultures showing no growth in 1 day * Obtain venous Dopplers to rule out DVT to the right lower extremity * Continue wound care * Continue aspirin 81 mg and statin for stroke prevention * MRI brain without contrast demonstrating a subacute ischemia in the inferior aspect of the cerebellar hemisphere * A1c 11.1%.Total cholesterol 212, LDL 140, HDL 45 * Echocardiogram with EF of 55-60% * Neurology following, recommending to continue home atorvastatin and clopidogrel? * PT/OT/ST Hypomagnesia?replete * Continue to monitor Chronic conditions: 1. Type 2 diabetes?Accu-Cheks before meals and at bedtime, SSI, long-acting insulin. A1c 11.1 2. Hypertension?blood pressure uncontrolled, resume home medication, hydralazine as needed 3. Hypothyroidism?levothyroxine, check TSH 4. GERD?on pantoprazole 5. BPH?on Flomax CODE STATUS: Full code DVT prophylaxis: Eliquis Documented By: Sarah Herron APRN 07/21/23 1126 Signed By: <Electronically signed by VIPIN Herron> 07/21/23 1359 [facility] Work Phone: [phone]) [phone] Progress note Author Matthew Bean [facility] July 21, 2023 1:53pm Note Date/Time July 21, 2023 11:5 8am [facility] [address] [place] [id number] Neurology Progress Note Signed Patient: Corona Wharton MR#: [id number] : 1945 Acct:[id number] Age/Sex: 78 / M Adm Date: 4 Loc: 4P Room: [address] [place] [address] Type: ADM IN Attending Dr: Luigi Napoles DO Copies to: ~ Date of Service: 07/21/2023 Exam Physical Exam Vital Signs: Temp Pulse Resp BP Pulse Ox O2 Del Method O2 Flow Rate 97.7 F 77 20 122/69 95 Nasal Cannula 2 07/21/23 10:02 07/21/23 10:02 07/21/23 10:02 07/21/23 10:02 07/21/23 10:02 07/21/23 10:02 07/21/23 10:02 Objective Vital Signs Vital Signs: Vital Signs - 24 hr 07/20/23 12:00 07/20/23 15:10 07/20/23 16:00 Temperature 97.6 F Pulse Rate 105 H Respiratory Rate 19 Blood Pressure 141/77 H 02 Sat by Pulse Oximetry 93 L Oxygen Delivery Method Nasal Cannula Nasal Cannula Nasal Cannula Oxygen Flow Rate 2 2 2 07/20/23 20:00 07/20/23 20:00 07/20/23 23:53 Temperature 97.8 F 98.4 F Pulse Rate 95 97 Respiratory Rate 18 14 Blood Pressure 129/75 149/88 H 02 Sat by Pulse Oximetry 92 L 92 L Oxygen Delivery Method Nasal Cannula Nasal Cannula Nasal Cannula Oxygen Flow Rate 2 2 2 07/20/23 23:54 07/21/23 03:42 07/21/23 08:00 Temperature Pulse Rate 96 Respiratory Rate 18 Blood Pressure 160/96 H 02 Sat by Pulse Oximetry 92 L Oxygen Delivery Method Nasal Cannula Nasal Cannula Nasal Cannula Oxygen Flow Rate 2 2 2 07/21/23 08:00 07/21/23 10:02 Temperature 97.7 F Pulse Rate 77 Respiratory Rate 20 Blood Pressure 122/69 02 Sat by Pulse Oximetry 95 Oxygen Delivery Method Nasal Cannula Nasal Cannula Oxygen Flow Rate 2 2 Labs 07/21/23 03:28 07/21/23 03:28 Therapy Recommendations Therapy Recommendations: ST Recommendations Level of Supervision Constant Supervision Liquid Consistency Green Tree-Thick Liquids,Thin Water Between Meals Recommendation Solid Consistency Mechanical Soft Solids Recommendations Meat Consistency Ground Meats,Extra Bowl of Gravy Recommendations Medication Administration Whole Pills,Give Pills in Applesauce Dysphagia Swallow Precautions/ Sitting Upright (90 deg),Small Bites/Sips,Pacing Strategies /Slow-Rate Referral Recommendations Modified Barium Swallow Assessment/Plan (1) Generalized weakness: (2) Hemiparesis affecting left side as late effect of cerebrovascular accident: Plan CONSULT REASON: Concern for stroke SUBJECTIVE: He says he still feels weak all over. Still having some trouble clearing his secretions. His says at home he has been having a tendency to sleep sitting upright in his wheelchair rather than in bed anymore. She clarified some medications for me to. I must have been looking at an old medication list. His says that he was taken off of clopidogrel a few months ago and put on apixaban 2.5 mg twice daily. I do not see a clear indication for the apixaban, especially at that dose, and his did not know why they made the switch either. She denied him ever having any blood clots. He does not have known history of atrial fibrillation. Does not need DVT prophylaxis at home from any recent surgery. She also mentioned that he was started on aripiprazole for depression. EXAMINATION: Reclined in bed. No acute distress. Occasional coughing and having trouble clearing secretions. No deformities or trauma. Limbs are warm. No significantedema. Possible mild increased work of breathing. Nasal cannula in place. Visualized skin is with age-related findings and then some potential cellulitic findings on the right lower extremity. Affect normal. He is alert. Cooperative. Attention seems normal. Speech is fluent and with some baseline moderate dysarthria, sometimes unintelligible. Pupils appear equal. Hearing seems intact. He has some right facial weakness most evidenced by a delayed andweak right eyelid closure. Tongue is midline. He has spastic left hemiparesis,flexion contracture and left hand. Reflexes seem hypoactive throughout. Light touch is intact. 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 -MRI brain from July 20, 2023 is read by the radiologist as having some subacuteischemia in the inferior aspect of the cerebellar hemispheres with associated restricted diffusion and abnormal T2/FLAIR signal. I personally reviewed the MRI images and compared them to the MRI from 2016 and, allowing for a change of MRI machine and different appearing quality of pictures, I do not think there isany significant difference between the studies. ASSESSMENT: 78-year-old man with remote strokes to right ventral pontomedullary area and bilateral cerebellar hemispheres (in 2005), leaving him with severe left spastichemiparesis and some right-sided facial weakness. He seems to be experiencing some generalized weakness, and given that he has chronic left spastic hemiparesis, the generalized weakness manifests as or mimics new right hemiparesis. There are no acute findings on MRI to explain thegeneralized weakness and no reason to have any right-sided weakness. I personally reviewed the MRI pictures from July 20, 2023 and compared them to 2016 MRI pictures and I think they look the same, allowing for some differences between image characteristics and quality because the MRI machine is different now. I do not think there is any true restricted diffusion involving the cerebellar hemispheres. PLAN: 1. I am putting him back on clopidogrel 75 mg daily and discontinuing the apixaban 2.5 mg twice daily. Unclear why they made the switch in the outpatientsetting a few months ago, as there seems to be no clear indication for the apixaban and it is excessively expensive for them as well. I also stopped the aspirin that was started here. 2. I am stopping the aripiprazole. I do not want it to contribute to any rigidity or bradykinesia in this spastic hemiparetic man. 3. Ongoing speech therapy 4. CT angiography of head and neck. If he has severe posterior circulatory arterial disease I might consider dual antiplatelet therapy Documented By: Matthew Bean DO 07/21/23 1157 Signed By: <Electronically signed by Matthew Bean DO> 07/21/23 7308 [facility] Work Phone: [phone]) 492-491904-05-2024 History and physical note Author Balbina Garzon [facility] July 20, 2023 8:37pm Note Date/Time July 20, 2023 4:38 am [facility] [address] [place] [address] Hospitalist H&P Signed Patient: Corona Wharton MR#: [id number] : 1945 Acct:[id number] Age/Sex: 78 / M Adm Date: 4 Loc: Room: [address] [place] [address] Type: ADM IN Attending Dr: Luigi Napoles DO Copies to: MD Balbina Padilla DO Shawn J Napoles ~ HPI DATE OF EXAMINATION: 07/20/23 CHIEF COMPLAINT: Right-sided lean HISTORY OF PRESENT ILLNESS: This patient is a 78-year-old male who presented to the emergency department earlier this past afternoon when he was thought to be exhibited a leaning to theright side as reported by his home health nurse. He has a history of prior stroke with residual left-sided weakness however these mechanical changes were new on his examination. He was subsequently brought into the emergency department where he was noted to be mildly tachycardic on this initial vital signs with a heart rate of 104 bpm, blood pressure 165/83 mmHg, hypoxia noted 90% oxygen saturation on room air. Head CT showed no acute abnormalities. Urinalysis and blood cultures were sent. Concern was for infectious etiology with vancomycin and Zosyn being provided for occult infection. Chest x-ray nonacute. Reports of increasing lethargy and confusion for several days prior to his arrival were reported by his in the ER. Leukocytosis of 13.4 was noted with a predominance of neutrophils 76.8%, hemoglobin 13.6, platelets 297. Chemistries revealed serum creatinine of 1.23 and were largely unremarkable. Urinalysis showed 300 protein, 500 glucose, 2+ leukocyte esterase and WBCs 5-9 but generally noninfectious appearing otherwise. High-sensitivity troponin mildly elevated at 26.2. Given his history of stroke and presenting high blood pressure head CT was obtained and showed no acute stroke. He was subsequently admitted for treatment of occult infection, possible sepsis as well as encephalopathy. Physical Examination: GENERAL APPEARANCE: Obese male, resting comfortably in bed, mildly obtunded difficult to arouse but appropriate HEENT: NCAT, MMM NECK: Neck soft w/o masses, no JVD CARDIAC: Normal S1 and S2. No S3, S4 or murmurs. LUNGS: Limited anteriorly due to body habitus ABDOMEN: Positive bowel sounds. Soft, nontender. No guarding or signs of an acute abdomen MUSCULOSKELETAL: No joint erythema or tenderness. EXTREMITIES: No clubbing, cyanosis. Significant peripheral edema PSYCHIATRIC: Appropriate mood and affect Assessment and plan: 1. Leukocytosis 2. Hypertension 3. Altered mental status 4. Proteinuria 5. Glucosuria 6. Peripheral edema 7. Morbid obesity 8. Hypoxia 9. Chronic diastolic congestive heart failure 10. Obesity hypoventilation 11. History of stroke 12. Type 2 diabetes 13. Hypothyroidism 14. Elevated troponin Patient presents with chronic immobility, reported mental status changes over a number of days and today he reported favoring of his posterior to the right sidereported as a new change. With his presenting hypertension and right-sided leg I cannot rule out acute cerebral event however but does not exhibit any definitive new focal deficits. Will allow some mild permissive hypertension as long as his other vital signs remained stable. He is somewhat hypoxic however largely in part due to obesity hypoventilation. His baseline diastolic congestive heart failure seems to be slightly more exacerbated and more IV fluidwill not be provided. Light IV diuresis to begin in the a.m. monitor electrolytes. Will check echocardiogram. Consider neurology consult and further MRI. His leukocytosis is of unclear origin and could represent an occult infection. I have continued the Zosyn initiated in the ER. Monitor for fevers. Continue home Synthroid when verified. Resume home medications when verified. Review of Systems Review of Systems Unobtainable due to mental status [facility] Medical History Diabetes Hyperlipidemia Hypertension Stroke Social History Smoking Status: Former smoker Tobacco Type: cigarettes Substance Use Type: None Meds Medications and Allergies Allergies azithromycin Adverse Reaction (Verified 07/19/23 16:30) Blister ceftriaxone [From Rocephin] Adverse Reaction (Verified 07/19/23 16:30) Blister Home Medications latanoprost 0.005 % eye drops 1 drp Eye-Both QHS 02/25/21 [History Confirmed 07/20/23] levothyroxine 75 mcg tablet 100 mcg PO DAILY 02/25/21 [History Confirmed 07/20/23] tamsulosin 0.4 mg capsule 0.4 mg PO DAILY 02/25/21 [History Confirmed 07/20/23] venlafaxine 150 mg capsule,extended release 24 hr 150 mg PO DAILY 02/25/21 [History Confirmed 07/20/23] apixaban 2.5 mg tablet (Eliquis) 2.5 mg PO BID 07/20/23 [History Confirmed 07/20/23] aripiprazole 2 mg tablet 2 mg PO DAILY 07/20/23 [History Confirmed 07/20/23] collagenase clostridium histo. 250 unit/gram topical ointment (Santyl) 1 applic topical TID 07/20/23 [History Confirmed 07/20/23] insulin NPH isoph U-100 human 100 unit/mL (3 mL) subcutaneous pen (Novolin N FlexPen) 8 unit subcut QPM 07/20/23 [History Confirmed 07/20/23] insulin NPH isoph U-100 human 100 unit/mL (3 mL) subcutaneous pen (Novolin N FlexPen) 12 unit subcut QAM 07/20/23 [History Confirmed 07/20/23] insulin glargine 100 unit/mL (3 mL) subcutaneous pen (Lantus Solostar U-100 Insulin) 20 unit subcut DAILY 07/20/23 [History Confirmed 07/20/23] levothyroxine 100 mcg tablet 100 mcg PO DAILY 07/20/23 [History Confirmed 07/20/23] pantoprazole 40 mg tablet,delayed release 40 mg PO DAILY 07/20/23 [History Confirmed 07/20/23] tamsulosin 0.4 mg capsule 0.4 mg PO DAILY 07/20/23 [History Confirmed 07/20/23] timolol maleate 0.5 % eye drops 1 drp Eye-Both QA 07/20/23 [History Confirmed 07/20/23] Exam Physical Exam Vital Signs: Temp Pulse Resp BP Pulse Ox O2 Del Method O2 Flow Rate 98.2 F 107 H 22 161/84 H 93 L Nasal Cannula 2 07/20/23 03:26 07/20/23 03:26 07/20/23 03:26 07/20/23 03:26 07/20/23 03:26 07/20/23 03:26 07/20/23 03:26 Results - Hospitalist H&P Lab Results Labs: Laboratory Last Values Corrected WBC 13.4 X10E3/uL (4.1-10.5) H 07/19/23 16:31 Uncorrected WBC Count 13.4 x10E3/uL (4.1-10.5) H 07/19/23 16:31 RBC 5.21 X10E6/uL (3.90-5.60) 07/19/23 16:31 Hgb 13.6 g/dL (13.0-17.0) 07/19/23 16:31 Hct 44.5 % (38.8-50.0) 07/19/23 16:31 MCV 85.3 fl (83.5-101) 07/19/23 16:31 MCH 26.0 pg (27.5-35.2) L 07/19/23 16:31 MCHC 30.5 g/dL (32.5-35.6) L 07/19/23 16:31 RDW 15.0 % (12.0-14.8) H 07/19/23 16:31 Plt Count 297 x10E3/uL (150-450) 07/19/23 16:31 MPV 8.1 fl (6.6-10.1) 07/19/23 16:31 Neut % (Auto) 76.8 % (.) 07/19/23 16:31 Lymph % (Auto) 14.4 % (.) 07/19/23 16:31 [place] % (Auto) 6.0 % (.) 07/19/23 16:31 Eos % (Auto) 2.5 % (.) 07/19/23 16:31 Baso % (Auto) 0.3 % (.) 07/19/23 16:31 Nucleat RBC Rel Count 0.2 /100 WBC (0-0.5) 07/19/23 16:31 Neut # (Auto) 10.3 x10E3/uL (1.8-7.7) H 07/19/23 16:31 Lymph # (Auto) 1.9 x10E3/uL (1.00-4.8) 07/19/23 16:31 [place] # (Auto) 0.8 x10E3/uL (0.0-0.8) 07/19/23 16:31 Eos # (Auto) 0.3 x10E3/uL (0.0-0.45) 07/19/23 16:31 Baso # (Auto) 0.0 x10E3/uL (0.0-0.2) 07/19/23 16:31 Monocyte Dist Width 22.44 % (0.00-20.00) H 07/19/23 16:31 Platelet Estimate Normal (Normal) 07/19/23 16:31 Plt Morphology Comment Normal (Normal) 07/19/23 16:31 RBC Morphology N/A 07/19/23 16:31 Polychromasia Slight 07/19/23 16:31 Anisocytosis Slight 07/19/23 16:31 Microcytosis Slight 07/19/23 16:31 PT 11.9 Seconds (9.0-12.9) 07/19/23 16:31 INR 1.0 07/19/23 16:31 APTT 32.2 Seconds (25.1-36.5) 07/19/23 16:31 Sample Site Venous 07/19/23 16:52 VBG pH 7.44 (7.32-7.43) H 07/19/23 16:52 VBG pCO2 39.4 mmHg (38.0-50.0) 07/19/23 16:52 VBG pO2 77.5 mmHg (35.0-45.0) H 07/19/23 16:52 VBG HCO3 26.0 mmol/L (23.0-29.0) 07/19/23 16:52 VBG Total CO2 27.2 mmol/L (24.0-29.0) 07/19/23 16:52 VBG O2 Saturation 95.8 % (73.0-76.0) H* 07/19/23 16:52 VBG O2 Content 8.5 mmol/L (6.6-9.7) 07/19/23 16:52 VBG Base Excess 1.9 mmol/L (-3.0-3.0) 07/19/23 16:52 O2 Delivery Device Nasal cannula 07/19/23 16:52 FiO2 28 % 07/19/23 16:52 Critical Value 07/19/23 16:52 PHA Creatinine Clear 76.94 07/19/23 16:31 Sodium 136 mmol/L (136-145) 07/19/23 16:31 Potassium 4.1 mmol/L (3.5-5.1) 07/19/23 17:59 Chloride 102 mmol/L (98-107) 07/19/23 16:31 Carbon Dioxide 28.1 mmol/L (21.0-31.0) 07/19/23 16:31 Anion Gap TNP 07/19/23 16:31 BUN 17 mg/dL (7-25) 07/19/23 16:31 Creatinine 1.23 mg/dL (0.70-1.30) 07/19/23 16:31 Est GFR (CKD-EPI) > 60.0 mL/Min 07/19/23 16:31 Glucose 216 mg/dL (70-100) H 07/19/23 16:31 Lactic Acid 1.0 mmol/L (0.5-2.2) 07/19/23 22:20 Calcium 8.9 mg/dL (8.6-10.3) 07/19/23 16:31 Magnesium 1.8 mg/dL (1.9-2.7) L 07/19/23 16:31 Total Bilirubin 0.5 mg/dl (0.3-1.0) 07/19/23 16:31 AST 23 U/L (13-39) 07/19/23 17:59 ALT 14 U/L (7-52) 07/19/23 16:31 Alkaline Phosphatase 86 U/L (34-104) 07/19/23 16:31 Total Creatine Kinase 132 U/L (30-223) 07/19/23 16:31 Troponin I High Sens 26.2 pg/mL (0.0-20.0) H 07/19/23 20:23 B-Natriuretic Peptide 299.0 pg/mL (5-100) H 07/19/23 16:31 Total Protein 6.8 gm/dL (6.4-8.9) 07/19/23 16:31 Albumin 3.8 gm/dL (3.5-5.7) 07/19/23 16:31 Globulin 3.0 gm/dL 07/19/23 16:31 Albumin/Globulin Ratio 1.3 07/19/23 16:31 Urine Color Yellow (Yellow) 07/19/23 19:30 Urine Appearance Clear (Clear) 07/19/23 19:30 Urine pH 6.5 (5.0-9.0) 07/19/23 19:30 Ur Specific Wells 1.015 (1.001-1.030) 07/19/23 19:30 Urine Protein 300 mg/dL (Negative) H 07/19/23 19:30 Urine Glucose (UA) 500 mg/dL (Normal) H 07/19/23 19:30 Urine Ketones Negative (Negative) 07/19/23 19:30 Urine Occult Blood Negative (Negative) 07/19/23 19:30 Urine Nitrite Negative (Negative) 07/19/23 19:30 Urine Bilirubin Negative (Negative) 07/19/23 19:30 Urine Urobilinogen Normal mg/dL (Normal) 07/19/23 19:30 Ur Leukocyte Esterase 2+ (Negative) H 07/19/23 19:30 Urine RBC 3-4 /HPF (0-4) 07/19/23 19:30 Urine WBC 5-9 /HPF (0-4) H 07/19/23 19:30 Ur Squamous Epith Cells 0-1 /HPF (0-2) 07/19/23 19:30 Urine Bacteria None seen (None Seen) 07/19/23 19:30 Hyaline Casts None seen /LPF (0-8) 07/19/23 19:30 SARS-CoV-2 Rap RNA(RT-PCR) Negative (Negative) 07/19/23 16:31 Microbiology Results Micro: Microbiology - Results from entire visit 07/19/23 16:31 Nasopharyngeal SARS-CoV-2, Influenza & RSV (PCR) - Final ABG Interpretation ABG results: 07/19/23 16:52 VBG pH 7.44 H VBG pCO2 39.4 VBG pO2 77.5 H VBG HCO3 26.0 VBG Total CO2 27.2 VBG O2 Saturation 95.8 H* VBG Base Excess 1.9 Assessment & Plan Assessment/Plan (1) Leukocytosis: Plan as above IP vs OBS Justification Based on differential dx, clinical care plan, and risk of adverse events, if untreated, in my clinical judgement this patient requires an acute care setting as: INPATIENT because of an expectation of an over 2 midnight stay. Estimated length of stay (# of days): 3 Documented By: Balbina Garzon DO 07/20/23 04 34 Signed By: <Electronically signed by Balbina Garzon DO> 07/20/232036 [facility] Work Phone: [phone]) 690-440104-05-2024 Consult note Author Matthew Bean [facility] July 20, 2023 2:51pm Note Date/Time July 20, 2023 2:38 pm [facility] [address] [place], [place] [id number] Neurology Consult Note Signed Patient: Corona Wharton MR#: [id number] : 1945 Acct:[id number] Age/Sex: 78 / M Adm Date: 4 Loc: Room: [address] [place] [address] Type: ADM IN Attending Dr: Luigi Napoles DO Copies to: DO Idalmis Moore MD Shawn J Warner, ~ HPI Consult Date: 07/20/23 Primary Products Inspectors: Matthew Bean DO [facility] Medical History Diabetes Hyperlipidemia Hypertension Stroke Social History Smoking Status: Former smoker Tobacco Type: cigarettes Substance Use Type: None Meds Medications and Allergies Allergies azithromycin Adverse Reaction (Verified 07/19/23 16:30) Blister ceftriaxone [From Rocephin] Adverse Reaction (Verified 07/19/23 16:30) Blister Home Medications timolol 0.5 % eye drops 1 drp Eye-Both DAILY.8A 01/05/19 [History Confirmed 02/25/21] latanoprost 0.005 % eye drops 1 drp Eye-Both QHS 02/25/21 [History Confirmed 07/20/23] levothyroxine 75 mcg tablet 100 mcg PO DAILY 02/25/21 [History Confirmed 07/20/23] tamsulosin 0.4 mg capsule 0.4 mg PO DAILY 02/25/21 [History Confirmed 07/20/23] venlafaxine 150 mg capsule,extended release 24 hr 150 mg PO DAILY 02/25/21 [History Confirmed 07/20/23] apixaban 2.5 mg tablet (Eliquis) 2.5 mg PO BID 07/20/23 [History Confirmed 07/20/23] aripiprazole 2 mg tablet 2 mg PO DAILY 07/20/23 [History Confirmed 07/20/23] collagenase clostridium histo. 250 unit/gram topical ointment (Santyl) 1 applic topical TID 07/20/23 [History Confirmed 07/20/23] insulin NPH isoph U-100 human 100 unit/mL (3 mL) subcutaneous pen (Novolin N FlexPen) 12 unit subcut DAILY.WITH.BKFAST 07/20/23 [History Confirmed 07/20/23] insulin glargine 100 unit/mL (3 mL) subcutaneous pen (Lantus Solostar U-100 Insulin) 20 unit subcut DAILY 07/20/23 [History Confirmed 07/20/23] Exam Physical Exam Vital Signs: Temp Pulse Resp BP Pulse Ox O2 Del Method O2 Flow Rate 97.3 F L 90 17 137/78 93 L Nasal Cannula 2 07/20/23 11:11 07/20/23 11:11 07/20/23 11:11 07/20/23 11:11 07/20/23 11:11 07/20/23 12:00 07/20/23 12:00 Results - Neuro Laboratory Findings 07/20/23 04:40 07/20/23 04:40 Lab Results: Hemoglobin A1c 11.1 % (4.3-5.6) H 07/20/23 04:40 Diagnostic Findings Imaging/Impressions: ITS Impressions Chest X-Ray 07/19/23 16:30 IMPRESSION: No acute cardiopulmonary pathology. Similar cardiomegaly. Impression dictated by: David Zeng M.D.07/19/2023 5:37 PM Dictation Location: [facility] 07/19/23 16:30 IMPRESSION: No acute intracranial pathology. 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 Impression dictated by: David Zeng M.D.07/19/2023 5:42 PM Dictation Location: [facility] Therapy Recommendations Therapy Recommendations: ST Recommendations Level of Supervision Constant Supervision Liquid Consistency Green Tree-Thick Liquids,Thin Water Between Meals Recommendation Solid Consistency Mechanical Soft Solids Recommendations Meat Consistency Ground Meats,Extra Bowl of Gravy Recommendations Medication Administration Whole Pills,Give Pills in Applesauce Dysphagia Swallow Precautions/ Sitting Upright (90 deg),Small Bites/Sips,Pacing Strategies /Slow-Rate Referral Recommendations Modified Barium Swallow Assessment/Plan (1) Generalized weakness: (2) Hemiparesis affecting left side as late effect of cerebrovascular accident: Plan CONSULT REASON: Concern for stroke HPI: Based on chart review, it looks like he had a stroke and recurrent stroke in July 2005 that was referred to as a brainstem stroke that left him with severe spastic left hemiparesis. He was reportedly able to still walk with a cane. I can see pictures from a 2016 brain MRI and it looks like he at that time had remote bilateral cerebellar strokes right greater than left and then there is encephalomalacia of the right anterior pontomedullary junction. 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 He is here for evaluation after a home health nurse said he was leaning more to the right side. Corona says he feels weak all over and that the left-sided weakness is chronic so that is probably what is affecting the right side but he wants to get everything checked out. He is complaining of having difficulty swallowing and difficulty clearing secretions. He is coughing quite a lot, reclined in bed at the time of my encounter and getting a transthoracic echocardiogram. Upon arrival here he was mildly hypoxic at 90%, his blood pressure was 165/83, his heart rate was 104. EXAMINATION: Reclined in bed. No acute distress. Frequent coughing and having trouble clearing secretions. No deformities or trauma. Limbs are warm. No significantedema. Possible mild increased work of breathing. Visualized skin is with age-related findings and then some potential cellulitic findings on the right lower extremity. Affect normal. He is alert. Cooperative. Attention seems normal. Speech is fluent and with some baseline dysarthria. Pupils appear equal. Hearing seems intact. He has some right facial weakness most evidenced by a delayed and weak right eyelid closure. Tongue is midline. He has spastic left hemiparesis, flexion contracture and left hand. Reflexes seem hypoactive throughout. Light touch is intact. 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 ASSESSMENT: 78-year-old man with remote strokes to right ventral pontomedullary area and bilateral cerebellar hemispheres (in 2005), leaving him with severe left spastichemiparesis and some right-sided facial weakness. Here for evaluation of some new right-sided weakness, which is probably generalized weakness but seems lateralize due to his chronic left spastic hemiparesis. Acute cerebrovascular disease felt unlikely but can be evaluated for. He is having trouble swallowing and having trouble clearing secretions. PLAN: 1. MRI brain without contrast 2. Speech therapy for swallow evaluation, looks like modified barium swallow study pending 3. Continue the home atorvastatin and clopidogrel. Aspirin 81 mg has been added for now as well. Documented By: Matthew Bean DO 07/20/23 1437 Signed By: <Electronically signed by Matthew Bean DO> 07/20/23 1451 [facility] Work Phone: [phone]) 935-841003-28-2023 Evaluation + Plan noteExtracted from: Title:ED Note Author:Gerson Luz DO Date: Accidental fall (W19.XXXA: U nspecified fall, initial encounter) Closed head injury (S09.90XA: Unspecified injury of head, initial encounter) Facial contusion (S00.83XA: Contusion of other part of head, initial encounter) Orders: CT Head or Brain w/o Contrast CT Maxillofacial w/o Contrast CT Spine Cervical w/o Contrast [facility]03-28-2023 Hospital Discharge instructions Patient Education 07/11/2022 09:33:48 Fall Prevention [...] If you or a loved one falls tonsil hospital, it is important to tell hospital [...] not get up by yourself. Asking for helpwith getting up is for your safety, and the staff is there to help you. Wear nonskid footwear. Get up slowly, and sit at the side of the bed for a few minutes before standing up. Keep items you need, such as the nurse call button or a phone, close to you so that you do not needto reach for them. Wear eyeglasses or hearing [...] observation), even when you are using the bathroom.This is for your safety. Using video monitoring. This allows a staff member to come to help you if you need help. What other actions can I take to lower my risk of falls? Check in regularly with your health care provider or pharmacist to review all of the medicines thatyou take. Make sure that you have a regular exercise program to stay fit. This will help you maintain your balance. Talk with a physical therapist or first aid trainer if recommended by your health care [...] not get up by yourself. Asking for helpwith getting up is for your safety, and [...] 03/30/2001 Document Revised: 03/15/2018 Document Reviewed: 11/14/2017 [employer] Patient Education 2020 [employer]. 07/11/2022 09:33:48 Head Injury, Adult Head Injury, [...] before the first one has healed, can bedangerous. Ask your health care provider when it is safe for you to return to your regular activities, including work or school. Ask your health care provider for a xogj-xw-zyny plan for gradually returning to activities. Ask [...] your friends, family, a trusted colleague, and flatwork finisher hand about your injury, symptoms, and restrictions. Have them watch for any new or worsening problems. General instructions Take ausp-czp-hlsgptf and prescription medicines only as told by [...] 04/02/2006 Document Revised: 04/30/2019 Document Reviewed: 04/25/2019 [employer] Patient Education 2020 [employer]. 07/11/2022 09:33:48 Facial or Scalp Contusion Facial or Scalp Contusion A facial or scalp contusion is a deep bruise (contusion) on the face or head. Injuries to the face and head generally cause a lot of swelling, especially around the eyes. Contusions are the result ofan injury that caused bleeding under the skin. [...] applying cold compresses to the injured area. Xsik-adv-zkmciln medicines may also be recommended for pain control. Follow these instructions at home: Take ivpe-kus-pedhpza and prescription medicines only as told by [...] 05/10/2005 Document Revised: 03/15/2018 Document Reviewed: 02/20/2017 [employer] Patient Education [employer]. Follow Up Care 07/11/2022 08:10:05 With:Idalmis Silva Address: [address] [place], [place] [id number] [facility] (1) When:07/14/2022 09:33:22 Comments:Call the office of [...] sleep, or any new or worsening symptoms. [facility]06-13-2022 History of Present illness Narrative* Pelon Hawthorne MD - 09/26/2021 3:30 PM EDT Images from the original note were not included. EMERGENCY TRIAGE, TREAT AND TRANSPORT (ET3) DOCUMENTATION OF TELEHEALTH VISIT Date / Time: 09/26/2021 / 1515 Name: Corona Wharton : 1945 SSN: [id number] EMS Agency: [facility] [x] Verbal consent obtained [] Implied consent - patient with potential emergency medical condition requiring assessment of capacity to refuse treatment and/or transport VITAL SIGNS: see flowsheet documentation Reason for Telehealth Visit: Chief Complaint Patient presents with Fall History of Present Ilness: Ernestina 76yo male, remote hx of stroke, no use of left leg. Pt slid from chair to ground. No c/o pain. Needed help getting back up. No LOC. Denies hitting head. present and st pt is acting his normal self with no change in activity or speech. No headache, no neck/back pain, no chest/abd pain.No n/v. No dyspnea. Pt has chronic back [...] abrasion to left forearm. Medical Decision Making: Ernestina 76yo male who slipped from chair needing [...] by: Pelon Hawthorne MD [facility] Diagnosis Fall, initial encounter- Primary Superficial abrasion Abrasion or friction burn of other, multiple, and unspecified sites, without mention of infection [facility] Diagnosis Onset Date Resolution Status Altered mental status acute UTI (urinary tract infection) acute [facility] Work Phone: Evaluation note* Diagnosis Onset Date Resolution Status Altered mental status acute Cellulitis acute Dysphagia acute Generalized weakness acute Hemiparesis affecting left s cecil as late effect of cerebrovascular accident acute Hypoxia acute Leukocytosis acute UTI (urinary tract infection) acute [facility] Work Phone: Hospital course Narrative No data available for this section [facility] No data available for this section [facility] Summary Purpose Family History No Family History Records FoundNo Family History Records FoundNo Family History Records FoundNo Family History Records Found Advance Directives No Advanced Directives Records Found Advance Directive Response Recorded Date/ Time Advance Directives No December 1:19pm Chief Complaint and Reason for Visit Chief Complaint ams Reason for Visit Altered mental statu s UTI (urinary tract infection) Chief Complaint ams ams ams Reason for Visit Altered mental statu s Cellulitis Dysphagia Generalized weakness Hemiparesis affecting left side as late effect of cerebrovascular accident Hypoxia Leukocytosis UTI (urinary tract infection) Additional Source Comments Reason for Visit (unrecogniz ed section and content) Reason Comments Fall (unrecognized sect ion and content) No Status Records FoundNo Status Records FoundNo Status Records FoundNo Status Records Found INFORMATION SOURCE (unrecogn ized section and content) DATE CREATED AUTHOR 05/03/2022 [facility] [employer] [facility] DATE CREATED AUTHOR AUTHOR'S ORGANIZ ATION 06/22/2022 [facility] DATE CREATED AUTHOR AUTHOR'S ORGANIZ ATION 08/09/2022 [facility] DATE CREATED AUTHOR AUTHOR'S ORGANIZ ATION 07/27/2023 [facility] Patient Care team informatio n (unrecognized section and content) Team Status: Active Member Role Status Dates Idalmis Silva MD Primary Care Provider Active Team Status: Inactive Member Role Status Dates Idalmis Silva MD Primary Care Provider Active Start: July 19, 2023 End: July 25, 2023 Rubén Cardoso DO Emergency Provider Active Start: July 19, 2023 End: July 25, 2023 Balbina Garzon DO Admit Provider Active Start: July 19, 2023 End: July 25, 2023 Luigi Napoles DO Attending Provider Active St art: July 19, 2023 End: July 25, 2023 Matthew Bean DO Other Provider Active Start: July 19, 2023 End: July 25, 2023 Brenda Zheng MD Other Provider Active Start: Jul End: July 25, 2023 Team Status: Active Member Role Status Dates Idalmis Silva MD Primary Care Provider Active Start: July 20, 2023 Rubén Cardoso DO Emergency Provider Active Start: July 20, 2023 Balbina Garzon DO Admit Provider, Atte nding Provider Active Start: July 20, 2023 Luigi Napoles DO Other Provider Active Start: July 20, 2023 Matthew Bean DO Other Provider Active Start: July 20, 2023 Team Status: Active Member Role Status Dates Idalmis Silva MD Primary Care Provider Active Start: July 25, 2023 Rubén Cardoso DO Emergency Provider Active Start: July 25, 2023 Balbina Garzon DO Admit Provider Active Start: July 25, 2023 Luigi Napoles DO Other Provider Active Start: July 25, 2023 Matthew Bean DO Other Provider Active Start: July 25, 2023 Brenda Zheng MD Attending Provider, Other Provider Active Start: July 25, 2023 Team Status: Active Member Role Status Dates Idalmis Silva MD Primary Care Provider Active Start: July 19, 2023 Rubén Cardoso DO Emergency Provider Active Start: July 19, 2023 Balbina Garzon DO Admit Provider, Atte nding Provider Active Start: July 19, 2023 Goals (unrecognized section and content) Goals may be documented in a n alternate section FOR RECORDS PERTAINING TO PATIENTS WHO ARE [...] BE BASED ON THE PRIMARY CLINICAL RECORDS. [facility] [employer] [facility]. provides no warranty or guarantee of the accuracy or completeness of information in this document.
[2023-07-30 09:31] LABS: Anion Gap 12.2; BUN Creatinine Ratio 13.9; Calcium 9.5 mg/dL (8.5-10.1); Carbon Dioxide 34.1 mmol/L (21.0-32.0); Chloride 102 mmol/L (98-107); Estimated GFR (African America 58 (>=60); Estimated GFR (Non-African Ame 48 (>=60); Glucose 140 mg/dL (74-106); Potassium 4.3 mmol/L (3.5-5.1); Sodium 144 mmol/L (136-145)
[2023-07-30 10:20] LABS: Basophils Absolute Auto 0.1 10^3/uL (0.0-0.1); Basophils Percent Auto 0.7 % (0.2-2.0); Eosinophils Absolute Auto 0.3 10^3/uL (0.0-0.7); Eosinophils Percent Auto 2.9 % (0.9-7.0); Hematocrit 47.1 % (42.0-54.0); Immature Granulocytes Abs Auto 0.08 10^3/uL (0.00-0.03); Immature Granulocytes Pct Auto 0.7 % (0.0-0.5); Lymphocytes Percent Auto 17.3 % (20.5-60.0); Mean Corpuscular Hemoglobin 25.8 pg (25.9-34.0); Mean Corpuscular Volume 93.5 fL (80.0-94.0); Mean Platelet Volume 9.9 fL (9.5-13.5); Monocytes Absolute Auto 0.8 10^3/uL (0.3-0.8); Monocytes Percent Auto 6.9 % (1.7-12.0); Neutrophils Absolute Auto 8.1 10^3/uL (1.4-6.5); Neutrophils Percent Auto 71.5 % (43.0-75.0); Platelet Count 339 10^3/uL (150-450); Red Blood Count 5.04 10^6/uL (4.70-6.10); Red Cell Distribution Width 14.8 % (11.0-15.0); White Blood Count 11.3 10^3/uL (4.0-11.0)
[2023-07-30 10:50] LABS: Mean Corpuscular HGB Conc 27.6 g/dL (29.9-35.2)
== END 2023-07-30 04:56 | disposition home or self-care (01) ==
LOC: LAB 04:55
PROVIDERS: PCP Family Medicine; Visit Provider Nurse Practitioner Family
DX: I50.43 Acute on chronic combined systolic (congestive) and diastolic (congestive) heart failure (principal); E11.9 Type 2 diabetes mellitus without complications
CPT/HCPCS: 36415; 80048; 85025

== ENCOUNTER 2023-08-08 01:26 | Outpatient (REF) | payer OTHER, SELFPAY ==
--- OUTSIDE RECORDS SUMMARY | 2023-08-08 01:33 | XMS_ITS | CCD ---
Author Organization [facility] Care Team Providers Care [employer] Functional Analyst Name Role Phone Unavailable Primary Care Provider [...] Unavailable LIMA ., DR RAYGOZA Admitting Unavailable HOY ., DR RAYGOZA Attending Unavailable LIMA ., DR RAYGOZA Primary Care Unavailable Idalmis Silva Primary Care Physician Gerson Luz Attending Unavailable MD Idalmis Silva Primary Care Provider DO Rubén Cardoso Emergency Provider DO Balbina Garzon Admit Provider [phone] DO Balbina Garzon Attending Provider DO Luigi Napoles Attending Provider DO Matthew Bean Other Provider MD Brenda Zheng Other Provider Matthew Bean Consulting Unavailable Idalmis Silva Primary Care Unavailable Balbina Garzon Admitting Unavailable Luigi Napoles Attending Unavailable Brenda Zheng Consulting Unavailable Allergies Allergy Classification Reported Allergen(s) Allergy Type Date of Onset Reaction(s) Facility (1 source) Allopurinol Drug Allergy [facility] Repository (1 source) No Known Medication Allergies; Translations: [No Known Medication Allergies] Propensity to adverse reactions (disorder) [facility] Repository (3 sources) Azithromycin; Translations: [azithromycin] Drug Allergy 4 [facility] (3 sources) cefTRIAXone; Translations: [ceftriaxone] Drug Allergy 4 [facility] Medications Current Medications Medication Drug Class(es) [...] July 20, 2023 12:00am polyethylene glycol 3350 [id number] mg powder for oral solution (1 source) [...] every four to six hours Hydrocodone-Acetam inophen ([place]) 5-325 mg tablet Discontinued 1 TAB PO [...] Onset: 05-09-2022 Other aftercare (1 source) Other salvage determiner (current) drug therapy; Translations: [OTH 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 THERAPY] Onset: 06-21-2022 Episodic Other aftercare (1 source) residential (current) use of insulin; Translations: [FPC CURRENT USE OF INSULIN] Onset: 06-21-2022 Episodic [...] gap [Moles/Vol] 10.4 mmol/L Normal 6.0-15.0 e [facility] Comment on above: Performed By: #### L PHUC PURI #### [facility] [address] [place] [address] [place] Calcium [Mass/Vol] 9.0 mg/dL Normal 8.6-10.3 [facility] Comment on above: Performed By: #### L PHUC PURI #### [facility] [address] [place] [address] [place] Chloride [Moles/Vol] 98 mmol/L Normal 98-107 [facility] Comment on above: Performed By: #### L PHUC PURI #### [facility] [address] [place] [address] [place] CO2 [Moles/Vol] 33.7 mmol/L High 21.0-31.0 [facility] Comment on above: Performed By: #### L PHUC PURI #### [facility] [address] [place] [id number] [place] Creatinine [Mass/Vol] 1.20 mg/dL Normal 0.70-1.30 [facility] Comment on above: Performed By: #### L PHUC PURI #### [facility] [address] [place] [address] [place] Creatinine Clr Calc Pharmacy 77.38 Normal [facility] Comment on above: Result Comment: PERF ORMED BY: [place] [address] PATHOLOGIST ETHNOARCHAEOLOGIST FREDA ALCAZAR M.D. Performed By: #### L PHUC PURI #### [place] [address] [place] GFR/1.73 sq M.predicted MDRD (S/P/Bld) [Vol rate/Area] mL/min/{1.73_m2} Normal [facility] Comment on above: Performed By: #### L PHUC PURI #### [facility] [address] Glucose [Mass/Vol] 141 mg/dL High 70-100 [facility] Comment on above: Result Comment: [place] Glucose Reference Range is dependent on time and content of last meal. Glucose of more than 200 mg/dL in a nonstressed, ambulatory subject supports the diagnosis of Diabetes Mellitus. ADA recommended reference range Performed By: #### L PHUC PURI #### [facility] [address] Potassium [Moles/Vol] 4.1 mmol/L Normal 3.5-5.1 [facility] Comment on above: Performed By: #### L PHUC PURI #### [facility] [address] Sodium [Moles/Vol] 138 mmol/L Normal 136-145 [facility] Comment on above: Performed By: #### L PHUC PURI #### [facility] [address] Urea nitrogen [Mass/Vol] 12 mg/dL Normal 7-25 [facility] Comment on above: Performed By: #### L PHUC PURI #### [facility] [address] [place] [address] [place] Basophils Auto (Bld) [#/Vol] Ordered By: Monica Crocker on 07-25-2023 Basophils (Bld) [#/Vol] 0.1 10*3/uL 0.0-0.2 [facility] Basophils/100 WBC Auto (Bld) Ordered By: Monica Crocker on 07-25-2023 Basophils/100 WBC (Bld) 1.1 % . [facility] Calcium [Mass/volume] in Ser um or PlasmaOrdered By: Monica Crocker on 07-25-2023 Calcium [Mass/Vol] 9.0 mg/dL 8.6-10.3 [facility] Carbon dioxide, total [Moles /volume] in Serum or PlasmaOrdered By: Monica Crocker on 07-25-2023 CO2 [Moles/Vol] 33.7 mmol/L 21.0-31.0 [facility] Chloride [Moles/volume] in S erika or PlasmaOrdered By: Monica Crocker on 07-25-2023 Chloride [Moles/Vol] 98 mmol/L 98-107 [facility] Complete Blood Count Auto Di ffon 07-25-2023 Basophils (Bld) [#/Vol] 0.1 10*3/uL Normal 0.0-0.2 [facility] Comment on above: Result Comment: PERF ORMED BY: [place] [address] PATHOLOGIST ETHNOARCHAEOLOGIST FREDA ALCAZAR M.D. Performed By: #### L PHUC PURI #### [address] Basophils/100 WBC (Bld) 1.1 % Normal . [facility] Comment on above: Performed By: #### L PHUC PURI #### [address] Eosinophils (Bld) [#/Vol] 0.4 10*3/uL Normal 0.0-0.45 [facility] Comment on above: Performed By: #### L PHUC PURI #### [address] Eosinophils/100 WBC (Bld) 3.1 % Normal . [facility] Comment on above: Performed By: #### L ACTSHERRIE VELASCOLD #### [address] Erythrocyte distribution width (RBC) [Ratio] 15.6 % High 12.0-14.8 [facility] Comment on above: Performed By: #### L ACTSHERRIE VELASCOLD #### [address] Hematocrit (Bld) [Volume fraction] 41.2 % Normal 38.8-50.0 [facility] Comment on above: Performed By: #### L ACTPHUC VELASCO #### [address] Hemoglobin (Bld) [Mass/Vol] 12.8 g/dL Low 13.0-17.0 [facility] Comment on above: Performed By: #### L ACTPHUC VELASCO #### [address] Lymphocytes (Bld) [#/Vol] 1.6 10*3/uL Normal 1.00-4.8 [facility] Comment on above: Performed By: #### L PHUC PURI #### [address] Lymphocytes/100 WBC (Bld) 12.8 % Normal . [facility] Comment on above: Performed By: #### L PHUC PURI #### [address] MCH (RBC) [Entitic mass] 26.1 pg Low 27.5-35.2 [facility] Comment on above: Performed By: #### L PHUC PURI #### [address] MCV (RBC) [Entitic vol] 84.3 fL Normal 83.5-101 [facility] Comment on above: Performed By: #### L PHUC PURI #### [address] Mean Corpuscular HGB Conc 30.9 g/dL Low 32.5-35.6 [facility] Comment on above: Performed By: #### L ACTPHUC VELASCO #### [address] Monocytes (Bld) [#/Vol] 0.9 10*3/uL High 0.0-0.8 [facility] Comment on above: Performed By: #### L ACTPHUC VELASCO #### [place] [address] [place] Monocytes/100 WBC (Bld) 7.0 % Normal . [facility] Comment on above: Performed By: #### L PHUC PURI #### [address] Neutrophils (Bld) [#/Vol] 9.5 10*3/uL High 1.8-7.7 [facility] Comment on above: Performed By: #### L PHUC PURI #### [address] Neutrophils/100 WBC (Bld) 76.0 % Normal . [facility] Comment on above: Performed By: #### L PHUC PURI #### [address] NRBC% 0.1 /100{WBC} Normal 0-0.5 [facility] Comment on above: Performed By: #### L PHUC PURI #### [address] Platelet mean volume (Bld) [Entitic vol] 7.8 fL Normal 6.6-10.1 [facility] Comment on above: Performed By: #### L PHUC PURI #### [place] [address] [place] Platelets (Bld) [#/Vol] 348 10*3/uL Normal 150-450 [facility] Comment on above: Performed By: #### L PHUC PURI #### [address] RBC (Bld) [#/Vol] 4.89 10*6/uL Normal 3.90-5.60 [facility] Comment on above: Performed By: #### L PHUC PURI #### [address] WBC (Bld) [#/Vol] 12.4 10*3/uL High 4.1-10.5 [facility] Comment on above: Performed By: #### L PHUC PURI #### [address] [place] [address] [facility] [[email or web address]] Creatinine [Mass/volume] in Serum or PlasmaOrdered By: Monica Crocker on 07-25-2023 Creatinine [Mass/Vol] 1.20 mg/dL 0.70-1.30 [facility] Eosinophils Auto (Bld) [#/Vo l]Ordered By: Monica Crocker on 07-25-2023 Eosinophils (Bld) [#/Vol] 0.4 10*3/uL 0.0-0.45 [facility] Eosinophils/100 WBC Auto (Bl d)Ordered By: Monica Crocker on 07-25-2023 Eosinophils/100 WBC (Bld) 3.1 % . [facility] Erythrocyte distribution wid th Auto (RBC) [Ratio]Ordered By: Monica Cordero on 07-25-2023 Erythrocyte distribution width (RBC) [Ratio] 15.6 % 12.0-14.8 [facility] Glucose Glucometer (BldC) [M ass/Vol]Ordered By: Luigi Napoles on 07-25-2023 Glucose [Mass/Vol] 172 mg/dL [facility] Comment on above: Random Glucose Refer ence Range is dependent on time and content of last meal. Glucose of more than 200 mg/dL in a nonstressed, ambulatory subject supports the diagnosis of Diabetes Mellitus. Glucose Poct Glucometerson 0 07-25-2023 Glucose [Mass/Vol] 172 mg/dL Normal [facility] Comment on above: Result Comment: [place] Glucose Reference Range is dependent on time and content of last meal. Glucose of more than 200 mg/dL in a nonstressed, ambulatory subject supports the diagnosis of Diabetes Mellitus. PERFORMED BY: [facility] [address] [place] [address] PATHOLOGIST ETHNOARCHAEOLOGIST FREDA ALCAZAR M.D. Performed By: #### G ELEAZAR #### Point of Care testing , Glucose [Mass/Vol] 177 mg/dL Normal [facility] Comment on above: Result Comment: [place] Glucose Reference Range is dependent on time and content of last meal. Glucose of more than 200 mg/dL in a nonstressed, ambulatory subject supports the diagnosis of Diabetes Mellitus. PERFORMED BY: [facility] [address] [place] [address] PATHOLOGIST ETHNOARCHAEOLOGIST FREDA ALCAZAR M.D. Performed By: #### L PHUC PURI #### [facility] [address] Glucose [Mass/volume] in Ser um or PlasmaOrdered By: Monica Crocker on 07-25-2023 Glucose [Mass/Vol] 141 mg/dL 70-100 [facility] Comment on above: ADA recommended refe rence rangeRandom Glucose Reference Range is dependent on time and content of last meal. Glucose of more than 200 mg/dL in a nonstressed, ambulatory subject supports the diagnosis of Diabetes Mellitus. Hematocrit Auto (Bld) [Volum e fraction]Ordered By: Monica Crocker on 07-25-2023 Hematocrit (Bld) [Volume fraction] 41.2 % 38.8-50.0 [facility] Hemoglobin [Mass/volume] in BloodOrdered By: Monica Crocker on 07-25-2023 Hemoglobin (Bld) [Mass/Vol] 12.8 g/dL 13.0-17.0 [facility] Leukocytes [#/volume] correc marina for nucleated erythrocytes in Blood by Automated counOrdered By: Monica Crocker on 07-25-2023 WBC corrected for nucl RBC Auto (Bld) [#/Vol] 12.4 10*3/uL 4.1-10.5 [facility] Lymphocytes Auto (Bld) [#/Vo l]Ordered By: Monica Crocker on 07-25-2023 Lymphocytes (Bld) [#/Vol] 1.6 10*3/uL 1.00-4.8 [facility] Lymphocytes/100 WBC Auto (Bl d)Ordered By: Monica Crocker on 07-25-2023 Lymphocytes/100 WBC (Bld) 12.8 % . [facility] MCH Auto (RBC) [Entitic mass ]Ordered By: Monica Crocker on 07-25-2023 MCH (RBC) [Entitic mass] 26.1 pg 27.5-35.2 [facility] MCHC Auto (RBC) [Mass/Vol]Or dered By: Monica Crocker on 07-25-2023 MCHC (RBC) [Mass/Vol] 30.9 g/dL 32.5-35.6 [facility] MCV Auto (RBC) [Entitic vol] Ordered By: Monica Crocker on 07-25-2023 MCV (RBC) [Entitic vol] 84.3 fL 83.5-101 [facility] Monocytes Auto (Bld) [#/Vol] Ordered By: Monica Crocker on 07-25-2023 Monocytes (Bld) [#/Vol] 0.9 10*3/uL 0.0-0.8 [facility] Monocytes/100 WBC Auto (Bld) Ordered By: Monica Crocker on 07-25-2023 Monocytes/100 WBC (Bld) 7.0 % . [facility] Neutrophils Auto (Bld) [#/Vo l]Ordered By: oMnica Crocker on 07-25-2023 Neutrophils (Bld) [#/Vol] 9.5 10*3/uL 1.8-7.7 [facility] Neutrophils/100 WBC Auto (Bl d)Ordered By: Monica Crocker on 07-25-2023 Neutrophils/100 WBC (Bld) 76.0 % . [facility] No Panel InformationOrdered By: Monica Crocker on 07-25-2023 Estimated GFR (CKD-EPI) > 60.0 mL/Min [facility] Creatinine Clearance (Chem 77.38 [facility] Nucleated erythrocytes [Pres ence] in Blood by Automated countOrdered By: Monica Crocker on 07-25-2023 Nucleated RBC Auto Ql (Bld) 0.1 /100{WBC} 0-0.5 [facility] Platelet mean volume Auto (B ld) [Entitic vol]Ordered By: Monica Crocker on 07-25-2023 Platelet mean volume (Bld) [Entitic vol] 7.8 fL 6.6-10.1 [facility] Platelets Auto (Bld) [#/Vol] Ordered By: Monica Crocker on 07-25-2023 Platelets (Bld) [#/Vol] 348 10*3/uL 150-450 [facility] Potassium [Moles/volume] in Serum or PlasmaOrdered By: Monica Crocker on 07-25-2023 Potassium [Moles/Vol] 4.1 mmol/L 3.5-5.1 [facility] RBC Auto (Bld) [#/Vol]Ordere d By: Monica Crocker on 07-25-2023 RBC (Bld) [#/Vol] 4.89 10*6/uL 3.90-5.60 [facility] Serum or plasma anion gap de terminationOrdered By: Monica Crocker on 07-25-2023 Anion gap [Moles/Vol] 10.4 mmol/L 6.0-15.0 [facility] Sodium [Moles/volume] in Ser um or PlasmaOrdered By: Monica Crocker on 07-25-2023 Sodium [Moles/Vol] 138 mmol/L 136-145 [facility] Urea nitrogen [Mass/volume] in Serum or PlasmaOrdered By: Monica Crocker on 07-25-2023 Urea nitrogen [Mass/Vol] 12 mg/dL 7-25 [facility] WBC Auto (Bld) [#/Vol]Ordere d By: Monica Crocker on 07-25-2023 WBC (Bld) [#/Vol] 12.4 10*3/uL 4.1-10.5 [facility] Anisocytosis LM Ql (Bld)Orde red By: Balbina Garzon on 07-24-2023 Anisocytosis Ql (Bld) Slight [facility] Basic Metabolic Panelon Anion gap [Moles/Vol] 9.3 mmol/L Normal 6.0-15.0 [facility] Comment on above: Performed By: #### L ACTIC, CUBLD #### [address] Calcium [Mass/Vol] 8.8 mg/dL Normal 8.6-10.3 [facility] Comment on above: Performed By: #### L PHUC PURI #### [facility] [address] [place] [address] [place] Chloride [Moles/Vol] 98 mmol/L Normal 98-107 [facility] Comment on above: Performed By: #### L SHERRIE PURILD #### [facility] [address] [place] [address] [place] CO2 [Moles/Vol] 33.8 mmol/L High 21.0-31.0 [facility] Comment on above: Performed By: #### L PHUC PURI #### [place] [address] [place] Creatinine [Mass/Vol] 1.22 mg/dL Normal 0.70-1.30 [facility] Comment on above: Performed By: #### L PHUC PURI #### [place] [address] [place] Creatinine Clr Calc Pharmacy 76.25 Normal [facility] Comment on above: Performed By: #### L PHUC PURI #### [place] [address] [place] GFR/1.73 sq M.predicted MDRD (S/P/Bld) [Vol rate/Area] mL/min/{1.73_m2} Normal [facility] Comment on above: Performed By: #### L SHERRIE PURILD #### [place] [address] [place] Glucose [Mass/Vol] 152 mg/dL High 70-100 [facility] Comment on above: Result Comment: [place] Glucose Reference Range is dependent on time and content of last meal. Glucose of more than 200 mg/dL in a nonstressed, ambulatory subject supports the diagnosis of Diabetes Mellitus. ADA recommended reference range Performed By: #### L ACTROD CUBLD #### [address] Potassium [Moles/Vol] 4.1 mmol/L Normal 3.5-5.1 [facility] Comment on above: Performed By: #### L PHUC PURI #### [facility] [address] Sodium [Moles/Vol] 137 mmol/L Normal 136-145 [facility] Comment on above: Performed By: #### L PHUC PURI #### [facility] [address] [place] [id number] [facility] [[email or web address]] Urea nitrogen [Mass/Vol] 13 mg/dL Normal 7-25 [facility] Comment on above: Performed By: #### L PHUC PURI #### [facility] [address] Glucose Poct Glucometerson 0 - Glucose [Mass/Vol] 186 mg/dL Normal [facility] Comment on above: Result Comment: [place] om Glucose Reference Range is dependent on time and content of last meal. Glucose of more than 200 mg/dL in a nonstressed, ambulatory subject supports the diagnosis of Diabetes Mellitus. PERFORMED BY: [place] [address] PATHOLOGIST ETHNOARCHAEOLOGIST FREDA ALCAZAR M.D. Performed By: #### A DDONUAPLUSVASYL #### [address] Glucose [Mass/Vol] 153 mg/dL Normal [facility] Comment on above: Result Comment: [place] om Glucose Reference Range is dependent on time and content of last meal. Glucose of more than 200 mg/dL in a nonstressed, ambulatory subject supports the diagnosis of Diabetes Mellitus. PERFORMED BY: [place] [address] PATHOLOGIST ETHNOARCHAEOLOGIST FREDA ALCAZAR M.D. Performed By: #### L PHUC PURI #### [address] Commemt1 Glu2: Cleaned Meter Normal [facility] Comment on above: Result Comment: PERF ORMED BY: [place] [address] PATHOLOGIST ETHNOARCHAEOLOGIST JIANLAN SUN M.D. Performed By: #### G LULS #### Point of Care testing , Glucose [Mass/Vol] 214 mg/dL Normal [facility] Comment on above: Result Comment: [place] om Glucose Reference Range is dependent on time and content of last meal. Glucose of more than 200 mg/dL in a nonstressed, ambulatory subject supports the diagnosis of Diabetes Mellitus. Performed By: #### G LULS #### Point of Care testing , Glucose [Mass/Vol] 155 mg/dL Normal [facility] Comment on above: Result Comment: [place] om Glucose Reference Range is dependent on time and content of last meal. Glucose of more than 200 mg/dL in a nonstressed, ambulatory subject supports the diagnosis of Diabetes Mellitus. PERFORMED BY: [place] [address] PATHOLOGIST ETHNOARCHAEOLOGIST FREDA ALCAZAR M.D. Performed By: #### G LULS #### Point of Care testing , Hypochromia LM Ql (Bld)Order ed By: Balbina Garzon on 07-24-2023 Hypochromia Ql (Bld) Slight [facility] Magnesiumon 07-24-2023 Magnesium [Mass/Vol] 2.0 mg/dL Normal 1.9-2.7 [facility] Comment on above: Result Comment: PERF ORMED BY: [place] [address] PATHOLOGIST ETHNOARCHAEOLOGIST FREDA ALCAZAR M.D. Performed By: #### L PHUC PURI #### [address] Magnesium [Mass/volume] in S erika or PlasmaOrdered By: Monica Crocker on 07-24-2023 Magnesium [Mass/Vol] 2.0 mg/dL 1.9-2.7 [facility] No Panel InformationOrdered By: Luigi Napoles on 07-24-2023 Bedside Glucose Comment Glu2: cleaned meter [facility] Platelet adequacy [Presence] in Blood by Light microscopyOrdered By: Balbina Garzon on 07-24-2023 Platelets LM Ql (Bld) Normal Normal [facility] Platelet morphology finding [Identifier] in BloodOrdered By: Balibna Garzon on 07-24-2023 Platelet morphology finding Nom (Bld) Normal Normal [facility] Polychromasia [Presence] in Blood by Light microscopyOrdered By: Balbina Garzon on 07-24-2023 Polychromasia LM Ql (Bld) Slight [facility] RBC morphologyOrdered By: Conchis Garzon on 07-24-2023 RBC morphology finding Nom (Bld) N/A [facility] Scan and CBCon 07-24-2023 Anisocytosis Ql (Bld) Slight Normal [facility] Comment on above: Performed By: #### L PHUC PURI #### [place] [address] [place] Basophils (Bld) [#/Vol] 0.1 10*3/uL Normal 0.0-0.2 [facility] Comment on above: Performed By: #### L PHUC PURI #### [place] [address] [place] Basophils/100 WBC (Bld) 1.0 % Normal . [facility] Comment on above: Performed By: #### L PHUC PURI #### [place] [address] [place] Eosinophils (Bld) [#/Vol] 0.4 10*3/uL Normal 0.0-0.45 [facility] Comment on above: Performed By: #### L PHUC PURI #### [place] [address] [place] Eosinophils/100 WBC (Bld) 3.6 % Normal . [facility] Comment on above: Performed By: #### L PHUC PURI #### [address] Erythrocyte distribution width (RBC) [Ratio] 15.5 % High 12.0-14.8 [facility] Comment on above: Performed By: #### L ACTPHUC VELASCO #### [address] Hematocrit (Bld) [Volume fraction] 39.7 % Normal 38.8-50.0 [facility] Comment on above: Performed By: #### L ACTSHERRIE VELASCOLD #### [address] Hemoglobin (Bld) [Mass/Vol] 12.1 g/dL Low 13.0-17.0 [facility] Comment on above: Performed By: #### L ACTROD CUBLD #### [address] Hypochromasia Slight Normal [facility] Comment on above: Performed By: #### L ACTSHERRIE VELASCOLD #### [address] Lymphocytes (Bld) [#/Vol] 1.4 10*3/uL Normal 1.00-4.8 [facility] Comment on above: Performed By: #### L ACTSHERRIE VELASCOLD #### [address] Lymphocytes/100 WBC (Bld) 12.5 % Normal . [facility] Comment on above: Performed By: #### L ACTSHERRIE VELASCOLD #### [address] MCH (RBC) [Entitic mass] 25.8 pg Low 27.5-35.2 [facility] Comment on above: Performed By: #### L ACTSHERRIE VELASCOLD #### [address] MCV (RBC) [Entitic vol] 85.1 fL Normal 83.5-101 [facility] Comment on above: Performed By: #### L ACTIC CUBLD #### [address] Mean Corpuscular HGB Conc 30.4 g/dL Low 32.5-35.6 [facility] Comment on above: Performed By: #### L ACTIC CUBLD #### [address] Monocytes (Bld) [#/Vol] 1.0 10*3/uL High 0.0-0.8 [facility] Comment on above: Performed By: #### L ACTPHUC VELASCO #### [address] Monocytes/100 WBC (Bld) 8.3 % Normal . [facility] Comment on above: Performed By: #### L ACTICSHERRIELD #### [place] [address] [place] Neutrophils (Bld) [#/Vol] 8.6 10*3/uL High 1.8-7.7 [facility] Comment on above: Performed By: #### L ACTPHUC VELASCO #### [address] Neutrophils/100 WBC (Bld) 74.6 % Normal . [facility] Comment on above: Performed By: #### L ACTSHERRIE VELASCOLD #### [address] NRBC% 0.0 /100{WBC} Normal 0-0.5 [facility] Comment on above: Performed By: #### L ACTPHUC VELASCO #### [address] Platelet Estimate Normal Normal Normal [facility] Comment on above: Performed By: #### L ACTSHERRIE VELASCOLD #### [address] Platelet mean volume (Bld) [Entitic vol] 7.6 fL Normal 6.6-10.1 [facility] Comment on above: Performed By: #### L ACTSHERRIE VELASCOLD #### [address] Platelet Morphology Normal Normal Normal [facility] Comment on above: Result Comment: PERF ORMED BY: [place] [address] PATHOLOGIST ETHNOARCHAEOLOGIST FREDA ALCAZAR M.D. Performed By: #### L ACTICSHERRIELD #### [place] [address] [place] Platelets (Bld) [#/Vol] 325 10*3/uL Normal 150-450 [facility] Comment on above: Performed By: #### L PHUC PURI #### [address] Polychromasia Slight Normal [facility] Comment on above: Performed By: #### L PHUC PURI #### [address] RBC (Bld) [#/Vol] 4.67 10*6/uL Normal 3.90-5.60 [facility] Comment on above: Performed By: #### L PHUC PURI #### [address] WBC (Bld) [#/Vol] 11.5 10*3/uL High 4.1-10.5 [facility] Comment on above: Performed By: #### L PHUC PURI #### [address] Serum or plasma trough vanco mycin levelOrdered By: Sarah Herron on 07-24-2023 Vancomycin trough [Mass/Vol] 17.0 ug/mL 10.0-20.0 [facility] Comment on above: Last dose: - Vancomycin [Mass/volume] in Serum or Plasma --peakOrdered By: Sarah Herron on 07-24-2023 Vancomycin peak [Mass/Vol] 23.2 ug/mL 20.0-40.0 [facility] Comment on above: Last dose: - Vancomycin,Peakon 07-24-2023 Vancomycin,Peak 23.2 ug/mL Normal 20.0-40.0 [facility] Comment on above: Order Comment: Comme nt ?DRAW 1 HOUR AFTER INFUSION COMPLETES Date of last dose?: 20230722 Time of last dose?: 1300 Result Comment: Last dose: - PERFORMED BY: [place] [address] PATHOLOGIST ETHNOARCHAEOLOGIST FREDA ALCAZAR M.D. Performed By: #### G ELEAZAR #### Point of Care testing , Vancomycin,Troughon 07-24-19 Vancomycin,Trough 17.0 ug/mL Normal 10.0-20.0 [facility] Comment on above: Order Comment: Time of next dose? 99 Date of last dose?: 20230722 Time of last dose?: 1300 Result Comment: Last dose: - PERFORMED BY: [place] [address] PATHOLOGIST ETHNOARCHAEOLOGIST FREDA ALCAZAR M.D. Performed By: #### V ANCT #### [address] XR chest 1V portableon 07-23 XR chest 1V portable [facility] [place] [address] [place] [address] XRay Report Signed Patient: Corona Wharton MR#: [id number] 1 : 1945 Acct:[id number] Age/Sex: 78 / M ADM Date: 07/19/23 Loc: Room: [address] [place] [address] Type: ADM IN Attending Dr: Luigi Napoles [...] Yost Jr., D.O.07/24/2023 8:33 AM Dictation Location: [place] [address] Transcribed By: [facility] 07/24/23 0833 Dictated By: Kuldeep Yost Jr, DO 07/24/23 0832 Signed By: 07/24/23 0833 Normal [facility] Basic Metabolic Panelon 04-0 Anion gap [Moles/Vol] 9.1 mmol/L Normal 6.0-15.0 [facility] Comment on above: Performed By: #### G LULS #### Point of Care testing , Calcium [Mass/Vol] 8.8 mg/dL Normal 8.6-10.3 [facility] Comment on above: Performed By: #### G LULS #### Point of Care testing , Chloride [Moles/Vol] 98 mmol/L Normal 98-107 [facility] Comment on above: Performed By: #### G LULS #### Point of Care testing , CO2 [Moles/Vol] 33.0 mmol/L High 21.0-31.0 [facility] Comment on above: Performed By: #### G LULS #### Point of Care testing , Creatinine [Mass/Vol] 1.21 mg/dL Normal 0.70-1.30 [facility] Comment on above: Performed By: #### G LULS #### Point of Care testing , Creatinine Clr Calc Pharmacy 76.77 Normal [facility] Comment on above: Result Comment: PERF ORMED BY: [address] [place] [address] PATHOLOGIST ETHNOARCHAEOLOGIST FREDA ALCAZAR M.D. Performed By: #### G LULS #### Point of Care testing , GFR/1.73 sq M.predicted MDRD (S/P/Bld) [Vol rate/Area] mL/min/{1.73_m2} Normal [facility] Comment on above: Performed By: #### G LULS #### Point of Care testing , Glucose [Mass/Vol] 164 mg/dL High 70-100 [facility] Comment on above: Result Comment: [place] Glucose Reference Range is dependent on time and content of last meal. Glucose of more than 200 mg/dL in a nonstressed, ambulatory subject supports the diagnosis of Diabetes Mellitus. ADA recommended reference range Performed By: #### G LULS #### Point of Care testing , Potassium [Moles/Vol] 4.1 mmol/L Normal 3.5-5.1 [facility] Comment on above: Performed By: #### G LULS #### Point of Care testing , Sodium [Moles/Vol] 136 mmol/L Normal 136-145 [facility] Comment on above: Performed By: #### G LULS #### Point of Care testing , Urea nitrogen [Mass/Vol] 14 mg/dL Normal 7-25 [facility] Comment on above: Performed By: #### G LULS #### Point of Care testing , Complete Blood Count Auto Di ffon 07-23-2023 Basophils (Bld) [#/Vol] 0.1 10*3/uL Normal 0.0-0.2 [facility] Comment on above: Result Comment: PERF ORMED BY: [facility] [place] [address] PATHOLOGIST ETHNOARCHAEOLOGIST FREDA ALCAZAR M.D. Performed By: #### G LULS #### Point of Care testing , Basophils/100 WBC (Bld) 0.9 % Normal . [facility] Comment on above: Performed By: #### G LULS #### Point of Care testing , Eosinophils (Bld) [#/Vol] 0.4 10*3/uL Normal 0.0-0.45 [facility] Comment on above: Performed By: #### G LULS #### Point of Care testing , Eosinophils/100 WBC (Bld) 3.0 % Normal . [facility] Comment on above: Performed By: #### G LULS #### Point of Care testing , Erythrocyte distribution width (RBC) [Ratio] 15.6 % High 12.0-14.8 [facility] Comment on above: Performed By: #### G LULS #### Point of Care testing , Hematocrit (Bld) [Volume fraction] 39.1 % Normal 38.8-50.0 [facility] Comment on above: Performed By: #### G LULS #### Point of Care testing , Hemoglobin (Bld) [Mass/Vol] 12.2 g/dL Low 13.0-17.0 [facility] Comment on above: Performed By: #### G LULS #### Point of Care testing , Lymphocytes (Bld) [#/Vol] 1.5 10*3/uL Normal 1.00-4.8 [facility] Comment on above: Performed By: #### G LULS #### Point of Care testing , Lymphocytes/100 WBC (Bld) 12.0 % Normal . [facility] Comment on above: Performed By: #### G LULS #### Point of Care testing , MCH (RBC) [Entitic mass] 26.3 pg Low 27.5-35.2 [facility] Comment on above: Performed By: #### G LULS #### Point of Care testing , MCV (RBC) [Entitic vol] 84.4 fL Normal 83.5-101 [facility] Comment on above: Performed By: #### G LULS #### Point of Care testing , Mean Corpuscular HGB Conc 31.1 g/dL Low 32.5-35.6 [facility] Comment on above: Performed By: #### G LULS #### Point of Care testing , Monocytes (Bld) [#/Vol] 1.1 10*3/uL High 0.0-0.8 [facility] Comment on above: Performed By: #### G LULS #### Point of Care testing , Monocytes/100 WBC (Bld) 8.2 % Normal . [facility] Comment on above: Performed By: #### G LULS #### Point of Care testing , Neutrophils (Bld) [#/Vol] 9.8 10*3/uL High 1.8-7.7 [facility] Comment on above: Performed By: #### G LULS #### Point of Care testing , Neutrophils/100 WBC (Bld) 75.9 % Normal . [facility] Comment on above: Performed By: #### G LULS #### Point of Care testing , NRBC% 0.0 /100{WBC} Normal 0-0.5 [facility] Comment on above: Performed By: #### G LULS #### Point of Care testing , Platelet mean volume (Bld) [Entitic vol] 7.7 fL Normal 6.6-10.1 [facility] Comment on above: Performed By: #### G LULS #### Point of Care testing , Platelets (Bld) [#/Vol] 328 10*3/uL Normal 150-450 [facility] Comment on above: Performed By: #### G LULS #### Point of Care testing , RBC (Bld) [#/Vol] 4.64 10*6/uL Normal 3.90-5.60 [facility] Comment on above: Performed By: #### G LULS #### Point of Care testing , WBC (Bld) [#/Vol] 12.9 10*3/uL High 4.1-10.5 [facility] Comment on above: Performed By: #### G LULS #### Point of Care testing , Glucose Poct Glucometerson 0 07-23-2023 Glucose [Mass/Vol] 158 mg/dL Normal [facility] Comment on above: Result Comment: [place] Glucose Reference Range is dependent on time and content of last meal. Glucose of more than 200 mg/dL in a nonstressed, ambulatory subject supports the diagnosis of Diabetes Mellitus. PERFORMED BY: [place] [address] PATHOLOGIST ETHNOARCHAEOLOGIST FREDA ALCAZAR M.D. Performed By: #### L PHUC PURI #### [address] Glucose [Mass/Vol] 160 mg/dL Normal [facility] Comment on above: Result Comment: [facility] Glucose Reference Range is dependent on time and content of last meal. Glucose of more than 200 mg/dL in a nonstressed, ambulatory subject supports the diagnosis of Diabetes Mellitus. PERFORMED BY: [place] [address] PATHOLOGIST ETHNOARCHAEOLOGIST FREDA ALCAZAR M.D. Performed By: #### L SHERRIE PURILD #### [address] Commemt1 Glu2: Cleaned Meter Normal [facility] Comment on above: Result Comment: PERF ORMED BY: [place] [address] PATHOLOGIST ETHNOARCHAEOLOGIST FREDA ALCAZAR M.D. Performed By: #### L PHUC PURI #### [address] Glucose [Mass/Vol] 186 mg/dL Normal [facility] Comment on above: Result Comment: [place] om Glucose Reference Range is dependent on time and content of last meal. Glucose of more than 200 mg/dL in a nonstressed, ambulatory subject supports the diagnosis of Diabetes Mellitus. Performed By: #### L PHUC PURI #### [address] Glucose [Mass/Vol] 175 mg/dL Normal [facility] Comment on above: Result Comment: [place] om Glucose Reference Range is dependent on time and content of last meal. Glucose of more than 200 mg/dL in a nonstressed, ambulatory subject supports the diagnosis of Diabetes Mellitus. PERFORMED BY: [place] [address] PATHOLOGIST ETHNOARCHAEOLOGIST FREDA ALCAZAR M.D. Performed By: #### G LULS #### Point of Care testing , B-Type Natriuretic Peptideon 07-22-2023 Natriuretic peptide B (Bld) [Mass/Vol] 270.0 pg/mL High 5-100 [facility] Comment on above: Order Comment: Comme nt Add on Result Comment: PERF ORMED BY: [place] [address] PATHOLOGIST ETHNOARCHAEOLOGIST FREDA ALCAZAR M.D. Performed By: #### L PHUC PURI #### [address] Basic Metabolic Panelon 04-0 Anion gap [Moles/Vol] 8.3 mmol/L Normal 6.0-15.0 [facility] Comment on above: Performed By: #### G LULS #### Point of Care testing , Calcium [Mass/Vol] 8.7 mg/dL Normal 8.6-10.3 [facility] Comment on above: Performed By: #### G LULS #### Point of Care testing , Chloride [Moles/Vol] 98 mmol/L Normal 98-107 [facility] Comment on above: Performed By: #### G LULS #### Point of Care testing , CO2 [Moles/Vol] 34.9 mmol/L High 21.0-31.0 [facility] Comment on above: Performed By: #### G LULS #### Point of Care testing , Creatinine [Mass/Vol] 1.22 mg/dL Normal 0.70-1.30 [facility] Comment on above: Performed By: #### G LULS #### Point of Care testing , Creatinine Clr Calc Pharmacy 76.57 Normal [facility] Comment on above: Result Comment: PERF ORMED BY: [address] [place] [address] PATHOLOGIST ETHNOARCHAEOLOGIST FREDA ALCAZAR M.D. Performed By: #### G LULS #### Point of Care testing , GFR/1.73 sq M.predicted MDRD (S/P/Bld) [Vol rate/Area] mL/min/{1.73_m2} Normal [facility] Comment on above: Performed By: #### G LULS #### Point of Care testing , Glucose [Mass/Vol] 169 mg/dL High 70-100 [facility] Comment on above: Result Comment: [facility] Glucose Reference Range is dependent on time and content of last meal. Glucose of more than 200 mg/dL in a nonstressed, ambulatory subject supports the diagnosis of Diabetes Mellitus. ADA recommended reference range Performed By: #### G LULS #### Point of Care testing , Potassium [Moles/Vol] 4.2 mmol/L Normal 3.5-5.1 [facility] Comment on above: Performed By: #### G LULS #### Point of Care testing , Sodium [Moles/Vol] 137 mmol/L Normal 136-145 [facility] Comment on above: Performed By: #### G LULS #### Point of Care testing , Urea nitrogen [Mass/Vol] 15 mg/dL Normal 7-25 [facility] Comment on above: Performed By: #### G ELEAZAR #### Point of Care testing , Blood Cultureon 07-22-2023 Bacteria identified Cx Nom (Bld) NO GROWTH 5 DAYS PERFORMED BY: [place] [address] PATHOLOGIST ETHNOARCHAEOLOGIST FREDA ALCAZAR M.D. Normal [facility] Comment on above: Performed By: #### L SHERRIE PURILD #### [address] Bacteria identified Cx Nom (Bld) NO GROWTH 5 DAYS PERFORMED BY: [place] [address] PATHOLOGIST ETHNOARCHAEOLOGIST FREDA ALCAZAR M.D. Normal [facility] Comment on above: Performed By: #### L PHUC PURI #### [address] Glucose Poct Glucometerson 0 07-22-2023 Glucose [Mass/Vol] 190 mg/dL Normal [facility] Comment on above: Result Comment: [facility] Glucose Reference Range is dependent on time and content of last meal. Glucose of more than 200 mg/dL in a nonstressed, ambulatory subject supports the diagnosis of Diabetes Mellitus. PERFORMED BY: [place] [address] PATHOLOGIST ETHNOARCHAEOLOGIST FREDA ALCAZAR M.D. Performed By: #### L SHERRIE PURILD #### [address] Glucose [Mass/Vol] 194 mg/dL Normal [facility] Comment on above: Result Comment: [facility] Glucose Reference Range is dependent on time and content of last meal. Glucose of more than 200 mg/dL in a nonstressed, ambulatory subject supports the diagnosis of Diabetes Mellitus. PERFORMED BY: [place] [address] PATHOLOGIST ETHNOARCHAEOLOGIST FREDA ALCAZAR M.D. Performed By: #### L SHERRIE PURILD #### [address] Commemt1 Glu2: Cleaned Meter Normal [facility] Comment on above: Result Comment: PERF ORMED BY: [place] [address] PATHOLOGIST ETHNOARCHAEOLOGIST FREDA ALCAZAR M.D. Performed By: #### L PHUC PURI #### [address] Glucose [Mass/Vol] 215 mg/dL Normal [facility] Comment on above: Result Comment: [place] om Glucose Reference Range is dependent on time and content of last meal. Glucose of more than 200 mg/dL in a nonstressed, ambulatory subject supports the diagnosis of Diabetes Mellitus. Performed By: #### L PHUC PURI #### [address] Glucose [Mass/Vol] 146 mg/dL Normal [facility] Comment on above: Result Comment: [place] om Glucose Reference Range is dependent on time and content of last meal. Glucose of more than 200 mg/dL in a nonstressed, ambulatory subject supports the diagnosis of Diabetes Mellitus. PERFORMED BY: [place] [address] PATHOLOGIST ETHNOARCHAEOLOGIST FREDA ALCAZAR M.D. Performed By: #### G LULS #### Point of Care testing , Natriuretic peptide B [Mass/ Vol]Ordered By: Sarah Herron on 07-22-2023 Natriuretic peptide B (Bld) [Mass/Vol] 270.0 pg/mL 5-100 [facility] Poikilocytosis [Presence] in Blood by Light microscopyOrdered By: Balbina Garzon on 07-22-2023 Poikilocytosis LM Ql (Bld) Slight [facility] Red blood cell stomatocyte d etectionOrdered By: Balbina Garzon on 07-22-2023 Stomatocytes LM Ql (Bld) Slight [facility] Scan and CBCon 07-22-2023 Anisocytosis Ql (Bld) Slight Normal [facility] Comment on above: Performed By: #### G LULS #### Point of Care testing , Basophils (Bld) [#/Vol] 0.2 10*3/uL Normal 0.0-0.2 [facility] Comment on above: Performed By: #### G LULS #### Point of Care testing , Basophils/100 WBC (Bld) 1.2 % Normal . [facility] Comment on above: Performed By: #### G LULS #### Point of Care testing , Eosinophils (Bld) [#/Vol] 0.3 10*3/uL Normal 0.0-0.45 [facility] Comment on above: Performed By: #### G LULS #### Point of Care testing , Eosinophils/100 WBC (Bld) 2.0 % Normal . [facility] Comment on above: Performed By: #### G LULS #### Point of Care testing , Erythrocyte distribution width (RBC) [Ratio] 15.6 % High 12.0-14.8 [facility] Comment on above: Performed By: #### G LULS #### Point of Care testing , Hematocrit (Bld) [Volume fraction] 40.8 % Normal 38.8-50.0 [facility] Comment on above: Performed By: #### G LULS #### Point of Care testing , Hemoglobin (Bld) [Mass/Vol] 12.3 g/dL Low 13.0-17.0 [facility] Comment on above: Performed By: #### G LULS #### Point of Care testing , Hypochromasia Moderate Normal [facility] Comment on above: Performed By: #### G LULS #### Point of Care testing , Lymphocytes (Bld) [#/Vol] 1.3 10*3/uL Normal 1.00-4.8 [facility] Comment on above: Performed By: #### G LULS #### Point of Care testing , Lymphocytes/100 WBC (Bld) 8.2 % Normal . [facility] Comment on above: Performed By: #### G LULS #### Point of Care testing , MCH (RBC) [Entitic mass] 25.6 pg Low 27.5-35.2 [facility] Comment on above: Performed By: #### G LULS #### Point of Care testing , MCV (RBC) [Entitic vol] 85.3 fL Normal 83.5-101 [facility] Comment on above: Performed By: #### G LULS #### Point of Care testing , Mean Corpuscular HGB Conc 30.0 g/dL Low 32.5-35.6 [facility] Comment on above: Performed By: #### G LULS #### Point of Care testing , Monocytes (Bld) [#/Vol] 1.1 10*3/uL High 0.0-0.8 [facility] Comment on above: Performed By: #### G LULS #### Point of Care testing , Monocytes/100 WBC (Bld) 6.8 % Normal . [facility] Comment on above: Performed By: #### G LULS #### Point of Care testing , Neutrophils (Bld) [#/Vol] 13.1 10*3/uL High 1.8-7.7 [facility] Comment on above: Performed By: #### G LULS #### Point of Care testing , Neutrophils/100 WBC (Bld) 81.8 % Normal . [facility] Comment on above: Performed By: #### G LULS #### Point of Care testing , NRBC% 0.0 /100{WBC} Normal 0-0.5 [facility] Comment on above: Performed By: #### G LULS #### Point of Care testing , Platelet Estimate Normal Normal Normal [facility] Comment on above: Performed By: #### G LULS #### Point of Care testing , Platelet mean volume (Bld) [Entitic vol] 7.8 fL Normal 6.6-10.1 [facility] Comment on above: Performed By: #### G LULS #### Point of Care testing , Platelet Morphology Normal Normal Normal [facility] Comment on above: Result Comment: PERF ORMED BY: [place] [address] [place] [address] PATHOLOGIST ETHNOARCHAEOLOGIST FREDA ALCAZAR M.D. Performed By: #### G LULS #### Point of Care testing , Platelets (Bld) [#/Vol] 330 10*3/uL Normal 150-450 [facility] Comment on above: Performed By: #### G LULS #### Point of Care testing , Poikilocytosis Slight Normal [facility] Comment on above: Performed By: #### G LULS #### Point of Care testing , Polychromasia Slight Normal [facility] Comment on above: Performed By: #### G LULS #### Point of Care testing , RBC (Bld) [#/Vol] 4.79 10*6/uL Normal 3.90-5.60 [facility] Comment on above: Performed By: #### G LULS #### Point of Care testing , Stomatocytes Slight Normal [facility] Comment on above: Performed By: #### G LULS #### Point of Care testing , WBC (Bld) [#/Vol] 16.1 10*3/uL High 4.1-10.5 [facility] Comment on above: Performed By: #### G LULS #### Point of Care testing , Vancomycin,Peakon 07-22-2023 Vancomycin,Peak 34.9 ug/mL Normal 20.0-40.0 [facility] Comment on above: Order Comment: Comme nt ?DRAW 1 HOUR AFTER INFUSION COMPLETES Date of last dose?: 32413034 Time of last dose?: 230 Result Comment: Last dose: - PERFORMED BY: [facility] [address] [place] [address] PATHOLOGIST ETHNOARCHAEOLOGIST FREDA ALCAZAR M.D. Performed By: #### G LULS #### Point of Care testing , Vancomycin,Troughon 07-22-19 Vancomycin,Trough 16.9 ug/mL Normal 10.0-20.0 [facility] Comment on above: Result Comment: Last dose: - PERFORMED BY: [address] [place] [address] PATHOLOGIST ETHNOARCHAEOLOGIST FREDA ALCAZAR M.D. Performed By: #### G ELEAZAR #### Point of Care testing , Basic Metabolic Panelon 0 Anion gap [Moles/Vol] 10.5 mmol/L Normal 6.0-15.0 [facility] Comment on above: Performed By: #### L PHUC PURI #### [place] [address] [place] Calcium [Mass/Vol] 8.4 mg/dL Low 8.6-10.3 [facility] Comment on above: Performed By: #### L PHUC PURI #### [facility] [address] [place] [address] [place] Chloride [Moles/Vol] 101 mmol/L Normal 98-107 [facility] Comment on above: Performed By: #### L PHUC PURI #### [place] [address] [place] CO2 [Moles/Vol] 30.8 mmol/L Normal 21.0-31.0 [facility] Comment on above: Performed By: #### L PHUC PURI #### [place] [address] [place] Creatinine [Mass/Vol] 1.26 mg/dL Normal 0.70-1.30 [facility] Comment on above: Performed By: #### L PHUC PURI #### [place] [address] [place] Creatinine Clr Calc Pharmacy 74.56 Normal [facility] Comment on above: Result Comment: PERF ORMED BY: [place] [address] PATHOLOGIST ETHNOARCHAEOLOGIST FREDA ALCAZAR M.D. Performed By: #### L PHUC PURI #### [place] [address] [place] GFR/1.73 sq M.predicted MDRD (S/P/Bld) [Vol rate/Area] 58.743 mL/min/{1.73_m2} Normal [facility] Comment on above: Performed By: #### L PHUC PURI #### [facility] [address] Glucose [Mass/Vol] 210 mg/dL High 70-100 [facility] Comment on above: Result Comment: [facility] Glucose Reference Range is dependent on time and content of last meal. Glucose of more than 200 mg/dL in a nonstressed, ambulatory subject supports the diagnosis of Diabetes Mellitus. ADA recommended reference range Performed By: #### L PHUC PURI #### [facility] [address] Potassium [Moles/Vol] 4.3 mmol/L Normal 3.5-5.1 [facility] Comment on above: Performed By: #### L PHUC PURI #### [address] Sodium [Moles/Vol] 138 mmol/L Normal 136-145 [facility] Comment on above: Performed By: #### L PHUC PURI #### [address] Urea nitrogen [Mass/Vol] 16 mg/dL Normal 7-25 [facility] Comment on above: Performed By: #### L PHUC PURI #### [address] angio neckon 07-21-2023 CT angio neck [facility] [place] [address] [place] [address] CT Scan Report Signed Patient: Corona Wharton MR#: [id number] 1 : 1945 Acct:[id number] Age/Sex: 78 / M ADM Date: 07/19/23 Loc: Room: [address] [place] [address] Type: ADM IN Attending Dr: Luigi Napoles DO Copies to: DO Luigi Moore DO Ordering Provider: Matthew Bean DO Date of Service: 07/21/23 CT/CT angio head: stroke ([id number]) CT/CT angio neck: stroke CT angio head, [...] Yost Jr., D.OFausto07/21/2023 2:40 PM Dictation Location: [place] [address] Transcribed By: [facility] 07/21/23 1440 Dictated By: Kuldeep Yost Jr, DO 07/21/23 1432 Signed By: 07/21/23 1440 Normal [facility] Complete Blood Count Auto Di ffon 07-21-2023 Basophils (Bld) [#/Vol] 0.1 10*3/uL Normal 0.0-0.2 [facility] Comment on above: Result Comment: PERF ORMED BY: [facility] [address] [place] [place] [address] PATHOLOGIST ETHNOARCHAEOLOGIST FREDA ALCAZAR M.D. Performed By: #### L ACTPHUC VELASCO #### [address] Basophils/100 WBC (Bld) 1.0 % Normal . [facility] Comment on above: Performed By: #### L ACTPHUC VELASCO #### [address] Eosinophils (Bld) [#/Vol] 0.5 10*3/uL High 0.0-0.45 [facility] Comment on above: Performed By: #### L PHUC PURI #### [address] Eosinophils/100 WBC (Bld) 3.7 % Normal . [facility] Comment on above: Performed By: #### L PHUC PURI #### [address] Erythrocyte distribution width (RBC) [Ratio] 15.6 % High 12.0-14.8 [facility] Comment on above: Performed By: #### L PHUC PURI #### [address] Hematocrit (Bld) [Volume fraction] 42.7 % Normal 38.8-50.0 [facility] Comment on above: Performed By: #### L PHUC PURI #### [address] Hemoglobin (Bld) [Mass/Vol] 12.8 g/dL Low 13.0-17.0 [facility] Comment on above: Performed By: #### L ACTPHUC VELASCO #### [address] Lymphocytes (Bld) [#/Vol] 1.9 10*3/uL Normal 1.00-4.8 [facility] Comment on above: Performed By: #### L ACTPHUC VELASCO #### [address] Lymphocytes/100 WBC (Bld) 13.7 % Normal . [facility] Comment on above: Performed By: #### L PHUC PURI #### [address] MCH (RBC) [Entitic mass] 25.9 pg Low 27.5-35.2 [facility] Comment on above: Performed By: #### L PHUC PURI #### [address] MCV (RBC) [Entitic vol] 86.1 fL Normal 83.5-101 [facility] Comment on above: Performed By: #### L PHUC PURI #### [address] Mean Corpuscular HGB Conc 30.1 g/dL Low 32.5-35.6 [facility] Comment on above: Performed By: #### L PHUC PURI #### [address] Monocytes (Bld) [#/Vol] 1.0 10*3/uL High 0.0-0.8 [facility] Comment on above: Performed By: #### L PHUC PURI #### [address] Monocytes/100 WBC (Bld) 7.1 % Normal . [facility] Comment on above: Performed By: #### L PHUC PURI #### [address] Neutrophils (Bld) [#/Vol] 10.6 10*3/uL High 1.8-7.7 [facility] Comment on above: Performed By: #### L PHUC PURI #### [address] Neutrophils/100 WBC (Bld) 74.5 % Normal . [facility] Comment on above: Performed By: #### L PHUC PURI #### [address] NRBC% 0.1 /100{WBC} Normal 0-0.5 [facility] Comment on above: Performed By: #### L PHUC PURI #### [address] Platelet mean volume (Bld) [Entitic vol] 7.9 fL Normal 6.6-10.1 [facility] Comment on above: Performed By: #### L PHUC PURI #### [address] Platelets (Bld) [#/Vol] 312 10*3/uL Normal 150-450 [facility] Comment on above: Performed By: #### L PHUC PURI #### [address] RBC (Bld) [#/Vol] 4.95 10*6/uL Normal 3.90-5.60 [facility] Comment on above: Performed By: #### L PHUC PURI #### [address] WBC (Bld) [#/Vol] 14.2 10*3/uL High 4.1-10.5 [facility] Comment on above: Performed By: #### L PHUC PURI #### [address] Glucose Poct Glucometerson 0 07-21-2023 Glucose [Mass/Vol] 177 mg/dL Normal [facility] Comment on above: Result Comment: [place] Glucose Reference Range is dependent on time and content of last meal. Glucose of more than 200 mg/dL in a nonstressed, ambulatory subject supports the diagnosis of Diabetes Mellitus. PERFORMED BY: [place] [address] PATHOLOGIST ETHNOARCHAEOLOGIST FREDA ALCAZAR M.D. Performed By: #### L PHUC PURI #### [address] Commemt1 Glu2: Cleaned Meter Normal [facility] Comment on above: Result Comment: PERF ORMED BY: [place] [address] PATHOLOGIST ETHNOARCHAEOLOGIST FREDA ALCAZAR M.D. Performed By: #### G LULS #### Point of Care testing , Glucose [Mass/Vol] 179 mg/dL Normal [facility] Comment on above: Result Comment: [place] om Glucose Reference Range is dependent on time and content of last meal. Glucose of more than 200 mg/dL in a nonstressed, ambulatory subject supports the diagnosis of Diabetes Mellitus. Performed By: #### G LULS #### Point of Care testing , Commemt1 Glu2: Cleaned Meter Normal [facility] Comment on above: Result Comment: PERF ORMED BY: [place] [phone] PATHOLOGIST ETHNOARCHAEOLOGIST FREDA ALCAZAR M.D. Performed By: #### L SHERRIE PURILD #### [address] Glucose [Mass/Vol] 240 mg/dL Normal [facility] Comment on above: Result Comment: [place] om Glucose Reference Range is dependent on time and content of last meal. Glucose of more than 200 mg/dL in a nonstressed, ambulatory subject supports the diagnosis of Diabetes Mellitus. Performed By: #### L SHERRIE PURILD #### [address] Commemt1 Glu2: Cleaned Meter Normal [facility] Comment on above: Result Comment: PERF ORMED BY: [place] [phone] PATHOLOGIST ETHNOARCHAEOLOGIST FREDA ALCAZAR M.D. Performed By: #### G LULS #### Point of Care testing , Glucose [Mass/Vol] 181 mg/dL Normal [facility] Comment on above: Result Comment: [place] om Glucose Reference Range is dependent on time and content of last meal. Glucose of more than 200 mg/dL in a nonstressed, ambulatory subject supports the diagnosis of Diabetes Mellitus. Performed By: #### G LULS #### Point of Care testing , MR head/brain wo conon 07-20 MR head/brain wo con [facility] Main [place] [address] [place] [address] MRI Report Signed Patient: Corona Wharton MR#: [id number] 1 : 1945 Acct:[id number] Age/Sex: 78 / M ADM Date: 07/19/23 Loc: Room: [address] [place] [address] Type: ADM IN Attending Dr: Luigi Napoles [...] Yost Jr., D.O.07/21/2023 9:07 AM Dictation Location: [place] [address] Transcribed By: [facility] 07/21/23 0907 Dictated By: Kuldeep Yost Jr, DO 07/21/23 0856 Signed By: 07/21/23 0907 Normal [facility] Magnesiumon 07-21-2023 Magnesium [Mass/Vol] 1.8 mg/dL Low 1.9-2.7 [facility] Comment on above: Result Comment: PERF ORMED BY: [place] [address] PATHOLOGIST ETHNOARCHAEOLOGIST FREDA ALCAZAR M.D. Performed By: #### L ACTROD CUBHAM #### [address] A1C with Estimated Average G tran 07-20-2023 Glucose [Mass/Vol] 272 mg/dL Normal [facility] Comment on above: Result Comment: PERF ORMED BY: [place] [address] PATHOLOGIST ETHNOARCHAEOLOGIST FREDA ALCAZAR M.D. Performed By: #### A DDONUAPLUS, CUU #### [address] HbA1c (Bld) [Mass fraction] 11.1 % High 4.3-5.6 [facility] Comment on above: Result Comment: Incr eased risk for diabetes: 5.7 - 6.4 diabetes: >6.4 glycemic control for adults with diabetes: <7.0 Performed By: #### A DDONUAPLUS, CUU #### [address] Alanine aminotransferase [En zymatic activity/volume] in Serum or PlasmaOrdered By: Balbina Garzon on 07-20-2023 ALT [Catalytic activity/Vol] 15 U/L 7-52 [facility] Albumin [Mass/volume] in Ser um or Plasma by Bromocresol green (BCG) dye binding methoOrdered By: Balbina Garzon on 07-20-2023 Albumin BCG dye [Mass/Vol] 3.2 g/dL 3.5-5.7 [facility] Alkaline phosphatase [Enzyma tic activity/volume] in Serum or PlasmaOrdered By: Balbina Garzon on 07-20-2023 ALP [Catalytic activity/Vol] 73 U/L 34-104 [facility] Aspartate aminotransferase [ Enzymatic activity/volume] in Serum or PlasmaOrdered By: Balbina Garzon on 07-20-2023 AST [Catalytic activity/Vol] 21 U/L 13-39 [facility] Bilirubin.total [Mass/volume ] in Serum or PlasmaOrdered By: Balbina Garzon on 07-20-2023 Bilirubin [Mass/Vol] 0.5 mg/dL 0.3-1.0 [facility] Blood Cultureon 07-20-2023 Bacteria identified Cx Nom (Bld) NO GROWTH 5 DAYS PERFORMED BY: [place] [address] PATHOLOGIST ETHNOARCHAEOLOGIST FREDA ALCAZAR M.D. Normal [facility] Comment on above: Performed By: #### L ACTIC, CUBLD #### [address] Bacteria identified Cx Nom (Bld) NO GROWTH 5 DAYS PERFORMED BY: [place] [address] PATHOLOGIST ETHNOARCHAEOLOGIST FREDA ALCAZAR M.D. Normal [facility] Comment on above: Performed By: #### L ACTIC, CUBLD #### [facility] [address] [place] [address] Cholesterol [Mass/volume] in Serum or PlasmaOrdered By: Balbina Garzon on 07-20-2023 Cholesterol [Mass/Vol] 212 mg/dL 140-200 [facility] Comment on above: Chol less than 200 m g/dl low riskChol 201-239 mg/dl borderline riskChol 240 mg/dl and greater high risk Cholesterol in LDL Calc [Mas s/Vol]Ordered By: Balbina Garzon on 07-20-2023 Cholesterol in LDL [Mass/Vol] 140 mg/dL 0-100 [facility] Comment on above: LDL ATP III CLASSIFI CATIONLDL less than 100 mg/dL OptimalLDL 100-129 mg/dL Near or above optimalLDL 130-159 mg/dL Borderline highLDL 160-189 mg/dL HighLDL greater than 189 mg/dL Very high Cholesterol in VLDL Calc [Ma ss/Vol]Ordered By: Balbina Garzon on 07-20-2023 Cholesterol in VLDL [Mass/Vol] 26 mg/dL [facility] Complete Blood Count Auto Di ffon 07-20-2023 Basophils (Bld) [#/Vol] 0.2 10*3/uL Normal 0.0-0.2 [facility] Comment on above: Result Comment: PERF ORMED BY: [place] [address] PATHOLOGIST ETHNOARCHAEOLOGIST FREDA ALCAZAR M.D. Performed By: #### L PHUC PURI #### [place] [address] [place] Basophils/100 WBC (Bld) 1.3 % Normal . [facility] Comment on above: Performed By: #### L PHUC PURI #### [address] Eosinophils (Bld) [#/Vol] 0.6 10*3/uL High 0.0-0.45 [facility] Comment on above: Performed By: #### L PHUC PURI #### [address] Eosinophils/100 WBC (Bld) 4.1 % Normal . [facility] Comment on above: Performed By: #### L PHUC PURI #### [address] Erythrocyte distribution width (RBC) [Ratio] 15.4 % High 12.0-14.8 [facility] Comment on above: Performed By: #### L PHUC PURI #### [place] [address] [place] Hematocrit (Bld) [Volume fraction] 39.6 % Normal 38.8-50.0 [facility] Comment on above: Performed By: #### L PHUC PURI #### [address] Hemoglobin (Bld) [Mass/Vol] 12.2 g/dL Low 13.0-17.0 [facility] Comment on above: Performed By: #### L PHUC PURI #### [address] Lymphocytes (Bld) [#/Vol] 2.2 10*3/uL Normal 1.00-4.8 [facility] Comment on above: Performed By: #### L ACTPHUC VELASCO #### [address] Lymphocytes/100 WBC (Bld) 15.1 % Normal . [facility] Comment on above: Performed By: #### L ACTPHUC VELASCO #### [address] MCH (RBC) [Entitic mass] 26.5 pg Low 27.5-35.2 [facility] Comment on above: Performed By: #### L ACTPHUC VELASCO #### [address] MCV (RBC) [Entitic vol] 85.8 fL Normal 83.5-101 [facility] Comment on above: Performed By: #### L ACTPHUC VELASCO #### [address] Mean Corpuscular HGB Conc 30.9 g/dL Low 32.5-35.6 [facility] Comment on above: Performed By: #### L ACTPHUC VELASCO #### [address] Monocytes (Bld) [#/Vol] 1.1 10*3/uL High 0.0-0.8 [facility] Comment on above: Performed By: #### L ACTPHUC VELASCO #### [place] [address] [place] Monocytes/100 WBC (Bld) 7.5 % Normal . [facility] Comment on above: Performed By: #### L ACTICSHERRIELD #### [address] Neutrophils (Bld) [#/Vol] 10.4 10*3/uL High 1.8-7.7 [facility] Comment on above: Performed By: #### L ACTPHUC VELASCO #### [facility] [address] Neutrophils/100 WBC (Bld) 72.0 % Normal . [facility] Comment on above: Performed By: #### L ACTPHUC VELASCO #### [facility] [address] NRBC% 0.4 /100{WBC} Normal 0-0.5 [facility] Comment on above: Performed By: #### L ACTSHERRIE VELASCOLD #### [address] Platelet mean volume (Bld) [Entitic vol] 8.6 fL Normal 6.6-10.1 [facility] Comment on above: Performed By: #### L ACTPHUC VELASCO #### [address] Platelets (Bld) [#/Vol] 345 10*3/uL Normal 150-450 [facility] Comment on above: Performed By: #### L ACTPHUC VELASCO #### [address] RBC (Bld) [#/Vol] 4.61 10*6/uL Normal 3.90-5.60 [facility] Comment on above: Performed By: #### L ACTPHUC VELASCO #### [place] [id number] [place] WBC (Bld) [#/Vol] 14.5 10*3/uL High 4.1-10.5 [facility] Comment on above: Performed By: #### L ACTSHERRIE VELASCOLD #### [address] Comprehensive Metabolic Pane jeanna 07-20-2023 Albumin [Mass/Vol] 3.2 g/dL Low 3.5-5.7 [facility] Comment on above: Performed By: #### L ACTICSHERRIELD #### [address] Albumin/Globulin [Mass ratio] 1.3 {ratio} Normal [facility] Comment on above: Performed By: #### L ACTIC CUBLD #### [facility] [address] [place] [id number] [facility] [[email or web address]] ALP [Catalytic activity/Vol] 73 U/L Normal 34-104 [facility] Comment on above: Performed By: #### L ACTIC CUBLD #### [facility] [address] [place] [id number] [facility] [[email or web address]] ALT [Catalytic activity/Vol] 15 U/L Normal 7-52 [facility] Comment on above: Performed By: #### L ACTIC CUBLD #### [facility] [address] Anion gap [Moles/Vol] 9.1 mmol/L Normal 6.0-15.0 [facility] Comment on above: Performed By: #### L ACTIC CUBLD #### [address] AST [Catalytic activity/Vol] 21 U/L Normal 13-39 [facility] Comment on above: Performed By: #### L ACTIC CUBLD #### [place] [address] [place] Bilirubin [Mass/Vol] 0.5 mg/dL Normal 0.3-1.0 [facility] Comment on above: Performed By: #### L ACTIC CUBLD #### [place] [phone] [place] Calcium [Mass/Vol] 8.7 mg/dL Normal 8.6-10.3 [facility] Comment on above: Performed By: #### L ACTIC CUBLD #### [place] [phone] [place] Chloride [Moles/Vol] 102 mmol/L Normal 98-107 [facility] Comment on above: Performed By: #### L ACTIC CUBLD #### [place] [phone] [place] CO2 [Moles/Vol] 30.1 mmol/L Normal 21.0-31.0 [facility] Comment on above: Performed By: #### L PHUC PURI #### [facility] [address] Creatinine [Mass/Vol] 1.30 mg/dL Normal 0.70-1.30 [facility] Comment on above: Performed By: #### L PHUC PURI #### [facility] [address] [place] [address] [place] Creatinine Clr Calc Pharmacy 72.15 Normal [facility] Comment on above: Performed By: #### L PHUC PURI #### [facility] [address] [place] [address] [place] GFR/1.73 sq M.predicted MDRD (S/P/Bld) [Vol rate/Area] 56.581 mL/min/{1.73_m2} Normal [facility] Comment on above: Performed By: #### L PHUC PURI #### [address] Globulin (S) [Mass/Vol] 2.5 g/dL Normal [facility] Comment on above: Performed By: #### L PHUC PURI #### [address] Glucose [Mass/Vol] 228 mg/dL High 70-100 [facility] Comment on above: Result Comment: [facility] Glucose Reference Range is dependent on time and content of last meal. Glucose of more than 200 mg/dL in a nonstressed, ambulatory subject supports the diagnosis of Diabetes Mellitus. ADA recommended reference range Performed By: #### L PHUC PURI #### [place] [address] [place] Potassium [Moles/Vol] 4.2 mmol/L Normal 3.5-5.1 [facility] Comment on above: Performed By: #### L PHUC PURI #### [address] Protein [Mass/Vol] 5.7 g/dL Low 6.4-8.9 [facility] Comment on above: Performed By: #### L PHUC PURI #### [facility] [address] Sodium [Moles/Vol] 137 mmol/L Normal 136-145 [facility] Comment on above: Performed By: #### L PHUC PURI #### [facility] [address] Urea nitrogen [Mass/Vol] 17 mg/dL Normal 7-25 [facility] Comment on above: Performed By: #### L PHUC PURI #### [facility] [address] echo transthoracicon [facility] echo transthoracic [facility] [place] [address] [place] [address] Echocardiogram Signed Patient: Corona Wharton MR#: [id number] 1 : 1945 Acct:[id number] Age/Sex: 78 / M ADM Date: 07/19/23 Loc: Room: [address] [place] [address] Type: ADM IN Attending Dr: Luigi Napoles DO Ordering Provider: Balbina Garzon DO Date of Service: 07/20/2309/06/658 [facility] echo transthoracic: edema Copies to: Thom Teran MD, [facility] Balbina Garzon DO BSA: 2.7 m2 BP: [...] 07/20/23 1347 Signed By: Thom Teran MD, [facility] 07/20/23 1502 Normal [facility] Globulin Calc (S) [Mass/Vol] Ordered By: Balbina Garzon on 07-20-2023 Globulin (S) [Mass/Vol] 2.5 g/dL [facility] Glucose Poct Glucometerson 0 07-20-2023 Glucose [Mass/Vol] 201 mg/dL Normal [facility] Comment on above: Result Comment: [place] om Glucose Reference Range is dependent on time and content of last meal. Glucose of more than 200 mg/dL in a nonstressed, ambulatory subject supports the diagnosis of Diabetes Mellitus. PERFORMED BY: [place] [address] PATHOLOGIST ETHNOARCHAEOLOGIST FREDA ALCAZAR M.D. Performed By: #### G LULS #### Point of Care testing , Commemt1 Glu2: Cleaned Meter Normal [facility] Comment on above: Result Comment: PERF ORMED BY: [place] [address] PATHOLOGIST ETHNOARCHAEOLOGIST FREDA ALCAZAR M.D. Performed By: #### G LULS #### Point of Care testing , Glucose [Mass/Vol] 205 mg/dL Normal [facility] Comment on above: Result Comment: [place] om Glucose Reference Range is dependent on time and content of last meal. Glucose of more than 200 mg/dL in a nonstressed, ambulatory subject supports the diagnosis of Diabetes Mellitus. Performed By: #### G LULS #### Point of Care testing , Commemt1 Glu2: Cleaned Meter Normal [facility] Comment on above: Result Comment: PERF ORMED BY: [place] [id number] PATHOLOGIST ETHNOARCHAEOLOGIST JIANLAN SUN M.D. Performed By: #### G LULS #### Point of Care testing , Glucose [Mass/Vol] 211 mg/dL Normal [facility] Comment on above: Result Comment: [place] om Glucose Reference Range is dependent on time and content of last meal. Glucose of more than 200 mg/dL in a nonstressed, ambulatory subject supports the diagnosis of Diabetes Mellitus. Performed By: #### G LULS #### Point of Care testing , Commemt1 Glu2: Cleaned Meter Normal [facility] Comment on above: Result Comment: PERF ORMED BY: [facility] [address] [facility] [address] PATHOLOGIST ETHNOARCHAEOLOGIST FREDA ALCAZAR M.D. Performed By: #### G LULS #### Point of Care testing , Glucose [Mass/Vol] 203 mg/dL Normal [facility] Comment on above: Result Comment: [place] om Glucose Reference Range is dependent on [...] from glycated hemoglobin (Bld) [Mass/Vol] 272 mg/dL [facility] Hemoglobin A1c percentageOrd ered By: Balbina Garzon on 07-20-2023 HbA1c (Bld) [Mass fraction] 11.1 % 4.3-5.6 [facility] Comment on above: Increased risk for d iabetes: 5.7 - 6.4diabetes: >6.4glycemic control for adults with diabetes: <7.0 Lactic Acidon 07-20-2023 Lactate [Moles/Vol] 1.0 mmol/L Normal 0.5-2.2 [facility] Comment on above: Result Comment: PERF ORMED BY: [facility] [address] [facility] [address] PATHOLOGIST ETHNOARCHAEOLOGIST FREDA ALCAZAR M.D. Performed By: #### L PHUC PURI #### [facility] [address] [place] [id number] [facility] [[email or web address]] Lipid Panelon 07-20-2023 Cholesterol [Mass/Vol] 212 mg/dL High 140-200 [facility] Comment on above: Result Comment: Chol less than 200 mg/dl low risk Chol 201-239 mg/dl borderline risk Chol 240 mg/dl and greater high risk Performed By: #### A DDONUAPLUS, CUU #### [facility] [address] [place] [id number] [facility] [[email or web address]] Cholesterol in HDL [Mass/Vol] 45 mg/dL Normal 23-92 [facility] Comment on above: Result Comment: HDL CHOL ATP-III CLASSIFICATION Cardiovascular Risk HDL > or equal to 60 mg/dL LOW HDL < 40 mg/dL HIGH Performed By: #### A DDONUAPLUS, CUU #### [facility] [address] Cholesterol.total/Chol esterol in HDL [Mass ratio] 4.7 {ratio} Normal <5.0 [facility] Comment on above: Result Comment: PERF ORMED BY: [place] [address] PATHOLOGIST ETHNOARCHAEOLOGIST FREDA ALCAZAR M.D. Performed By: #### A DDONUAPLUS, CUU #### [address] LDL Cholesterol,Calculated 140 mg/dL High 0-100 [facility] Comment on above: Result Comment: LDL ATP III CLASSIFICATION LDL less than 100 mg/dL Optimal LDL 100-129 mg/dL Near or above optimal LDL 130-159 mg/dL Borderline high LDL 160-189 mg/dL High LDL greater than 189 mg/dL Very high Performed By: #### A DDONUAPLUS, CUU #### [facility] [address] [place] [address] [place] Triglyceride w/Reflex 134 mg/dL Normal 0-149 [facility] Comment on above: Result Comment: TRIG ATP III CLASSIFICATION TRIG less than 150 mg/dL Normal TRIG 150-199 mg/dL Borderline high TRIG 200-500 mg/dL High TRIG greater than 500 mg/dL Very high Standard traceable to the Center for Disease Conrtrol and Prevention (CDC) test method. Performed By: #### A DDONUAPLUS, CUU #### [facility] [address] VLDL CHOLESTEROL 26 mg/dL Normal [facility] Comment on above: Performed By: #### A DDONUAPLUS, CUU #### [facility] [address] [place] [address] [place] Magnesiumon 07-20-2023 Magnesium [Mass/Vol] 1.8 mg/dL Low 1.9-2.7 [facility] Comment on above: Performed By: #### A DDONUAPLUS, CUU #### [facility] [address] Protein [Mass/volume] in Ser um or PlasmaOrdered By: Balbina Garzon on 07-20-2023 Protein [Mass/Vol] 5.7 g/dL 6.4-8.9 [facility] Serum or plasma albumin/glob ulin mass ratioOrdered By: Balbina Garzon on 07-20-2023 Albumin/Globulin [Mass ratio] 1.3 {ratio} [facility] Serum or plasma high density lipoprotein (HDL) cholesterol measurementOrdered By: Balbina Garzon on 07-20-2023 Cholesterol in HDL [Mass/Vol] 45 mg/dL 23- [facility] Comment on above: HDL CHOL ATP-III CLA SSIFICATION Cardiovascular RiskHDL > or equal to 60 mg/dL LOWHDL < 40 mg/dL HIGH Serum or plasma total choles terol/high density lipoprotein (HDL) cholesterol mass ratOrdered By: Balbina Garzon on 07-20-2023 Cholesterol.total/Chol esterol in HDL [Mass ratio] 4.7 {ratio} <5.0 [facility] Triglyceride [Mass/volume] i n Serum or PlasmaOrdered By: Balbina Garzon on 07-20-2023 Triglyceride [Mass/Vol] 134 mg/dL 0-149 [facility] Comment on above: TRIG ATP III CLASSIF ICATIONTRIG less than 150 mg/dL NormalTRIG 150-199 mg/dL Borderline highTRIG 200-500 mg/dL High TRIG greater than 500 mg/dL Very highStandard traceable to the Center for Disease Conrtrol and Prevention (CDC) test method. XR humerus RT*on 07-20-2023 XR humerus RT* [facility] Main [place] [address] [place] [address] XRay Report Signed Patient: Corona Wharton MR#: [id number] 1 : 1945 Acct:[id number] Age/Sex: 78 / M ADM Date: 07/19/23 Loc: Room: [address] [place] [address] Type: ADM IN Attending Dr: Luigi Napoles [...] John Mckeon M.D.07/20/2023 7:57 PM Dictation Location: [place] [address] Transcribed By: [facility] 07/20/231956 Dictated By: John Mckeon DO 07/20/231956 Signed By: 07/20/231956 Normal [facility] Activated partial thrombopla stin time (aPTT) in platelet poor plasma by coagulation aOrdered By: Rubén Cardoso on 07-19-2023 aPTT Coag (PPP) [Time] 32.2 s 25.1-36.5 [facility] Comment on above: A hematocrit value g reater than 55% may lead to inaccurate results in coagulation testing. Patients having hematocrit values >55% require a special collection tube for coagulation studies. Please contact the laboratory at [phone] for redraw instructions. Alanine aminotransferase [En zymatic activity/volume] in Serum or PlasmaOrdered By: Rubén Cardoso on 07-19-2023 ALT [Catalytic activity/Vol] 14 U/L 7-52 [facility] Albumin [Mass/volume] in Ser um or Plasma by Bromocresol green (BCG) dye binding methoOrdered By: Rubén Cardoso on 07-19-2023 Albumin BCG dye [Mass/Vol] 3.8 g/dL 3.5-5.7 [facility] Alkaline phosphatase [Enzyma tic activity/volume] in Serum or PlasmaOrdered By: Rubén Cardoso on 07-19-2023 ALP [Catalytic activity/Vol] 86 U/L 34-104 [facility] Anisocytosis LM Ql (Bld)Orde red By: Rubén Cardoso on 07-19-2023 Anisocytosis Ql (Bld) Slight Fir [facility] Aspartate aminotransferase [ Enzymatic activity/volume] in Serum or PlasmaOrdered By: Rubén Cardoso on 07-19-2023 AST [Catalytic activity/Vol] 23 U/L 13-39 [facility] Automated erythrocytes count in urine sediment (number/area)Ordered By: Rubén Cardoso on 07-19-2023 RBC Auto (Urine sed) [#/Area] 3-4 [HPF] 0-4 [facility] Automated leukocytes count i n urine sediment (number/area)Ordered By: Rubén Cardoso on 07-19-2023 WBC Auto (Urine sed) [#/Area] 5-9 [HPF] 0-4 [facility] B-Type Natriuretic Peptideon 07-19-2023 Natriuretic peptide B (Bld) [Mass/Vol] 299.0 pg/mL High 5-100 [facility] Comment on above: Result Comment: PERF ORMED BY: [place] [address] PATHOLOGIST ETHNOARCHAEOLOGIST FREDA ALCAZAR M.D. Performed By: #### A VASYL CAMPO #### [address] Bacterial blood cultureOrder ed By: Rubén Cardoso on 07-19-2023 Bacteria identified Cx Nom (Bld) NO GROWTH 5 DAYS [facility] Bacteria identified Cx Nom (Bld) NO GROWTH 5 DAYS [facility] Basophils Auto (Bld) [#/Vol] Ordered By: Rubén Cardoso on 07-19-2023 Basophils (Bld) [#/Vol] 0.0 10*3/uL 0.0-0.2 [facility] Basophils/100 WBC Auto (Bld) Ordered By: Rubén Cardoso on 07-19-2023 Basophils/100 WBC (Bld) 0.3 % . [facility] Bilirubin Test strip Ql (U)O rdered By: Rubén Cardoso on 07-19-2023 Bilirubin Ql (U) Negative Negative [facility] Bilirubin.total [Mass/volume ] in Serum or PlasmaOrdered By: Rubén Cardoso on 07-19-2023 Bilirubin [Mass/Vol] 0.5 mg/dL 0.3-1.0 [facility] COVID CepheidOrdered By: Patricia Cardoso on 07-19-2023 SARS-CoV-2 (COVID-19) Ab IA Ql Negative Negative [facility] Comment on above: This is a duplicate Cepheid Xpert Xpress CoV-2/Flu/RSV Plus RNA by RT-PCR result to be used for statistical tracking purpose only. SARS-CoV-2 (COVID-19) RNA CAROLINE+probe Ql (Unsp spec) [facility] COVID-19 / Flu A/B / RSV PCR [...] or Cepheid Disclaimer revoked sooner. PERFORMED BY: [place] [address] PATHOLOGIST ETHNOARCHAEOLOGIST FREDA ALCAZAR M.D. Normal [facility] Comment on above: Performed By: #### G LULS #### Point of Care testing , CT head/brain wo conon 07-18 CT head/brain wo con [place] [address] CT Scan Report Signed Patient: Corona Wharton MR#: [id number] 1 : 1945 Acct:[id number] Age/Sex: 78 / M ADM Date: 07/19/23 Loc: ER Room: Type: [facility] ER Attending Dr: Copies to: Rubén Cardoso [...] David Zeng M.D.07/19/2023 5:42 PM Dictation Location: [place] [address] Transcribed By: [facility] 07/19/23 174 Dictated By: David Zeng II, MD 07/19/23 1738 Signed By: 07/19/23 174 Normal [facility] Calcium [Mass/volume] in Ser um or PlasmaOrdered By: Rubén Cardoso on 07-19-2023 Calcium [Mass/Vol] 8.9 mg/dL 8.6-10.3 [facility] Carbon dioxide, total [Moles /volume] in Serum or PlasmaOrdered By: Rubén Cardoso on 07-19-2023 CO2 [Moles/Vol] 28.1 mmol/L 21.0-31.0 [facility] Cepheid COVID PCR Negativeon 07-19-2023 SARS-CoV-2 (COVID-19) RNA CAROLINE+probe Ql (Unsp spec) Negative Normal Negative [facility] Comment on above: Result Comment: This is a duplicate Cepheid Xpert Xpress CoV-2/Flu/RSV Plus RNA by RT-PCR result to be used for statistical tracking purpose only. PERFORMED BY: [place] [address] PATHOLOGIST ETHNOARCHAEOLOGIST FREDA ALCAZAR M.D. Performed By: #### G ELEAZAR #### Point of Care testing , Chloride [Moles/volume] in S erika or PlasmaOrdered By: Rubén Cardoso on 07-19-2023 Chloride [Moles/Vol] 102 mmol/L 98-107 [facility] Color Auto (U)Ordered By: Nitin Cardoso on 07-19-2023 Color (U) Yellow Yellow [facility] Comprehensive Metabolic Pane jeanna 07-19-2023 Albumin [Mass/Vol] 3.8 g/dL Normal 3.5-5.7 [facility] Comment on above: Performed By: #### A JAHAIRA CUU #### [address] Albumin/Globulin [Mass ratio] 1.3 {ratio} Normal [facility] Comment on above: Performed By: #### A JAHAIRA, CUU #### [address] ALP [Catalytic activity/Vol] 86 U/L Normal 34-104 [facility] Comment on above: Performed By: #### A JAHAIRA CUU #### [address] ALT [Catalytic activity/Vol] 14 U/L Normal 7-52 [facility] Comment on above: Performed By: #### A JAHAIRA, CUU #### [address] Anion gap [Moles/Vol] Not performed Normal 6.0-15.0 [facility] Comment on above: Performed By: #### A DDLIZABETH, CUU #### [address] Aspartate Amino Transferase Normal 13-39 [facility] Comment on above: Result Comment: Spec imen hemolyzed, redraw requested Performed By: #### A DDLIZABETH, CUU #### [address] [address] [place] Bilirubin [Mass/Vol] 0.5 mg/dL Normal 0.3-1.0 [facility] Comment on above: Performed By: #### A JAHAIRA, CUU #### [address] Calcium [Mass/Vol] 8.9 mg/dL Normal 8.6-10.3 [facility] Comment on above: Performed By: #### A JAHAIRA, CUU #### [address] Chloride [Moles/Vol] 102 mmol/L Normal 98-107 [facility] Comment on above: Performed By: #### A JAHAIRA, CUU #### [address] CO2 [Moles/Vol] 28.1 mmol/L Normal 21.0-31.0 [facility] Comment on above: Performed By: #### A JAHAIRA, CUU #### [address] Creatinine [Mass/Vol] 1.23 mg/dL Normal 0.70-1.30 [facility] Comment on above: Performed By: #### A JAHAIRA, CUU #### [address] Creatinine Clr Calc Pharmacy 76.94 Normal [facility] Comment on above: Performed By: #### A JAHAIRA, CUU #### [place] [address] [place] GFR/1.73 sq M.predicted MDRD (S/P/Bld) [Vol rate/Area] mL/min/{1.73_m2} Normal [facility] Comment on above: Performed By: #### A JAHAIRA, CUU #### [place] [address] [place] Globulin (S) [Mass/Vol] 3.0 g/dL Normal [facility] Comment on above: Performed By: #### A DDONUAPLUS, CUU #### [place] [address] [place] Glucose [Mass/Vol] 216 mg/dL High 70-100 [facility] Comment on above: Result Comment: [facility] Glucose Reference Range is dependent on time and content of last meal. Glucose of more than 200 mg/dL in a nonstressed, ambulatory subject supports the diagnosis of Diabetes Mellitus. ADA recommended reference range Performed By: #### A HELADIOUAPLUS, CUU #### [address] Potassium Normal 3.5-5.1 [facility] Comment on above: Result Comment: Spec imen hemolyzed, redraw requested Performed By: #### A JAHAIRA, CUU #### [address] Protein [Mass/Vol] 6.8 g/dL Normal 6.4-8.9 [facility] Comment on above: Performed By: #### A JAHAIRA, CUU #### [place] [address] [place] Sodium [Moles/Vol] 136 mmol/L Normal 136-145 [facility] Comment on above: Performed By: #### A JAHAIRA, CUU #### [place] [address] [place] Urea nitrogen [Mass/Vol] 17 mg/dL Normal 7-25 [facility] Comment on above: Performed By: #### A JAHAIRA, CUU #### [place] [id number] [place] Creatine Kinaseon 07-19-2023 CK [Catalytic activity/Vol] 132 U/L Normal 30-223 [facility] Comment on above: Performed By: #### A JAHAIRA, CUU #### [place] [address] [place] Creatine kinase [Enzymatic a ctivity/volume] in Serum or PlasmaOrdered By: Rubén Cardoso on 07-19-2023 CK [Catalytic activity/Vol] 132 U/L 30-223 [facility] Creatinine [Mass/volume] in Serum or PlasmaOrdered By: Rubén Cardoso on 07-19-2023 Creatinine [Mass/Vol] 1.23 mg/dL 0.70-1.30 [facility] Dipstick and Microscopicon 0 07-19-2023 Appearance (U) Clear Normal Clear [facility] Comment on above: Order Comment: Name Collection Type:: Clean-Voided Midstream Performed By: #### A DDONUAPLUS, CUU #### [address] Bacteria,Urine None Seen Normal None Seen [facility] Comment on above: Order Comment: Name Collection Type:: Clean-Voided Midstream Performed By: #### A DDONUAPLUS, CUU #### [address] Bilirubin,Urine Negative Normal Negative [facility] Comment on above: Order Comment: Name Collection Type:: Clean-Voided Midstream Performed By: #### A DDONUAPLUS, CUU #### [address] Color (U) Yellow Normal Yellow [facility] Comment on above: Order Comment: Name Collection Type:: Clean-Voided Midstream Performed By: #### A DDONUAPLUS, CUU #### [address] Glucose Ql (U) 500 mg/dL High Normal [facility] Comment on above: Order Comment: Name Collection Type:: Clean-Voided Midstream Performed By: #### A DDONUAPLUS, CUU #### [address] Hyaline Casts,Urine None Seen Normal 0-8 [facility] Comment on above: Order Comment: Name Collection Type:: Clean-Voided Midstream Result Comment: PERF ORMED BY: [place] [address] PATHOLOGIST ETHNOARCHAEOLOGIST FREDA ALCAZAR M.D. Performed By: #### A DDONUAPLUS, CUU #### [address] [place] [address] [place] Ketones Ql (U) Negative Normal Negative [facility] Comment on above: Order Comment: Name Collection Type:: Clean-Voided Midstream Performed By: #### A DDONUAPLUS, CUU #### [address] Leukocyte esterase Test strip Ql (U) 2+ High Negative [facility] Comment on above: Order Comment: Name Collection Type:: Clean-Voided Midstream Performed By: #### A DDONUAPLUS, CUU #### [address] Nitrite,Urine Negative Normal Negative [facility] Comment on above: Order Comment: Name Collection Type:: Clean-Voided Midstream Performed By: #### A DDONUAPLUS, CUU #### [address] Occult Blood,Urine Negative Normal Negative [facility] Comment on above: Order Comment: Name Collection Type:: Clean-Voided Midstream Result Comment: PERF ORMED BY: [place] [address] PATHOLOGIST ETHNOARCHAEOLOGIST FREDA ALCAZAR M.D. Performed By: #### A DDONUAPLUS, CUU #### [address] pH (U) 6.5 [pH] Normal 5.0-9.0 [facility] Comment on above: Order Comment: Name Collection Type:: Clean-Voided Midstream Performed By: #### A DDONUAPLUS, CUU #### [address] Protein (U) [Mass/Vol] 300 mg/dL High Negative [facility] Comment on above: Order Comment: Name Collection Type:: Clean-Voided Midstream Performed By: #### A DDONUAPLUS, CUU #### [address] RBC,Urine 3-4 Normal 0-4 [facility] Comment on above: Order Comment: Name Collection Type:: Clean-Voided Midstream Performed By: #### A DDONUAPLUS, CUU #### [address] Specificy [place],Urine 1.015 Normal 1.001-1.03 0 [facility] Comment on above: Order Comment: Name Collection Type:: Clean-Voided Midstream Performed By: #### A DDONUAPLUS, CUU #### [address] Squamous Epithelial Cell,Urine 0-1 Normal 0-2 [facility] Comment on above: Order Comment: Name Collection Type:: Clean-Voided Midstream Performed By: #### A DDONUAPLUS, CUU #### [address] Urobilinogen,Urine Normal Normal Normal [facility] Comment on above: Order Comment: Name Collection Type:: Clean-Voided Midstream Performed By: #### A DDONUAPLUS, CUU #### [address] WBC,Urine 5-9 High 0-4 [facility] Comment on above: Order Comment: Name Collection Type:: Clean-Voided Midstream Performed By: #### A DDONUAPLUS, CUU #### [address] ECG 12 lead ECGon 07-19-2023 ECG 12 lead ECG [facility] [place] [address] Electrocardiograph Report Signed Patient: Corona Wharton MR#: [id number] 1 : 1945 Acct:[id number] Age/Sex: 78 / M ADM Date: 07/19/23 Loc: Room: [address] [place] [address] Type: ADM IN Attending Dr: Balbina Garzon [...] Bifascicular block Confirmed by Rubén CARDOSO DO ([id number]) on 07/19/2023 10:26:57 PM Referred By: Electronically Signed By:Rubén CARDOSO DO Transcribed By: MUS Signed By Rubén Cardoso DO 0 07/19/232226 Normal [facility] Eosinophils Auto (Bld) [#/Vo l]Ordered By: Rubén Cardoso on 07-19-2023 Eosinophils (Bld) [#/Vol] 0.3 10*3/uL 0.0-0.45 [facility] Eosinophils/100 WBC Auto (Bl d)Ordered By: Rubén Cardoso on 07-19-2023 Eosinophils/100 WBC (Bld) 2.5 % . [facility] Erythrocyte distribution wid th Auto (RBC) [Ratio]Ordered By: Rubén Cardoso on 07-19-2023 Erythrocyte distribution width (RBC) [Ratio] 15.0 % 12.0-14.8 [facility] Globulin Calc (S) [Mass/Vol] Ordered By: Rubén Cardoso on 07-19-2023 Globulin (S) [Mass/Vol] 3.0 g/dL [facility] Glucose [Mass/volume] in Ser um or PlasmaOrdered By: Rubén Cardoso on 07-19-2023 Glucose [Mass/Vol] 216 mg/dL 70-100 [facility] Comment on above: ADA recommended refe rence rangeRandom Glucose Reference Range is dependent on time and content of last meal. Glucose of more than 200 mg/dL in a nonstressed, ambulatory subject supports the diagnosis of Diabetes Mellitus. Hematocrit Auto (Bld) [Volum e fraction]Ordered By: Rubén Cardoso on 07-19-2023 Hematocrit (Bld) [Volume fraction] 44.5 % 38.8-50.0 [facility] Hemoglobin [Mass/volume] in BloodOrdered By: Rubén Cardoso on 07-19-2023 Hemoglobin (Bld) [Mass/Vol] 13.6 g/dL 13.0-17.0 [facility] INR in Platelet poor plasma by Coagulation assayOrdered By: Rubén Cardoso on 07-19-2023 INR Coag (PPP) [Relative time] 1.0 {INR} [facility] Comment on above: INR Therapeutic Rang e [...] 07-19-2023 Ketones (U) [Mass/Vol] Negative Negative [facility] - Chemistry and C hemistry - challengeOrdered By: Rubén Cardoso on 07-19-2023 CO2 [Moles/Vol] 27.2 mmol/L 24.0-29.0 [facility] HCO3 (Bld) [Moles/Vol] 26.0 mmol/L 23.0-29.0 [facility] - UrinalysisOrder ed By: Rubén Cardoso on 07-19-2023 Hyaline casts LM Ql (Urine sed) None seen [LPF] 0-8 [facility] Lactate [Moles/volume] in Se rum or PlasmaOrdered By: Rubén Cardoso on 07-19-2023 Lactate [Moles/Vol] 1.0 mmol/L 0.5-2.2 [facility] Leukocytes [#/volume] correc marina for nucleated erythrocytes in Blood by Automated counOrdered By: Rubén Cardoso on 07-19-2023 WBC corrected for nucl RBC Auto (Bld) [#/Vol] 13.4 10*3/uL 4.1-10.5 [facility] Lymphocytes Auto (Bld) [#/Vo l]Ordered By: Rubén Cardoso on 07-19-2023 Lymphocytes (Bld) [#/Vol] 1.9 10*3/uL 1.00-4.8 [facility] Lymphocytes/100 WBC Auto (Bl d)Ordered By: Rubén Cardoso on 07-19-2023 Lymphocytes/100 WBC (Bld) 14.4 % . [facility] MCH Auto (RBC) [Entitic mass ]Ordered By: Rubén Cardoso on 07-19-2023 MCH (RBC) [Entitic mass] 26.0 pg 27.5-35.2 [facility] MCHC Auto (RBC) [Mass/Vol]Or dered By: Rubén Cardoso on 07-19-2023 MCHC (RBC) [Mass/Vol] 30.5 g/dL 32.5-35.6 [facility] MCV Auto (RBC) [Entitic vol] Ordered By: Rubén Cardoso on 07-19-2023 MCV (RBC) [Entitic vol] 85.3 fL 83.5-101 [facility] Magnesiumon 07-19-2023 Magnesium [Mass/Vol] 1.8 mg/dL Low 1.9-2.7 [facility] Comment on above: Result Comment: PERF ORMED BY: [place] [address] PATHOLOGIST ETHNOARCHAEOLOGIST FREDA ALCAZAR M.D. Performed By: #### A DDONUAPLUS, CUU #### [address] Magnesium [Mass/volume] in S erika or PlasmaOrdered By: Rubén Cardoso on 07-19-2023 Magnesium [Mass/Vol] 1.8 mg/dL 1.9-2.7 [facility] Microcytes LM Ql (Bld)Ordere d By: Rubén Cardoso on 07-19-2023 Microcytes Ql (Bld) Slight [facility] Monocyte distribution width [Entitic volume] in Blood by AutomatedOrdered By: Rubén Cardoso on 07-19-2023 Monocyte distribution width Auto (Bld) [Entitic vol] 22.44 % 0.00-20.00 [facility] Comment on above: For adults in ED, MD W > 20.0 may be associated with a higher risk of sepsis during the first 12 hrs of hospital admission Monocytes Auto (Bld) [#/Vol] Ordered By: Rubén Cardoso on 07-19-2023 Monocytes (Bld) [#/Vol] 0.8 10*3/uL 0.0-0.8 [facility] Monocytes/100 WBC Auto (Bld) Ordered By: Rubén Cardoso on 07-19-2023 Monocytes/100 WBC (Bld) 6.0 % . [facility] Natriuretic peptide B [Mass/ Vol]Ordered By: Rubén Cardoso on 07-19-2023 Natriuretic peptide B (Bld) [Mass/Vol] 299.0 pg/mL 5-100 [facility] Neutrophils Auto (Bld) [#/Vo l]Ordered By: Rubén Cardoso on 07-19-2023 Neutrophils (Bld) [#/Vol] 10.3 10*3/uL 1.8-7.7 [facility] Neutrophils/100 WBC Auto (Bl d)Ordered By: Rubén Cardoso on 07-19-2023 Neutrophils/100 WBC (Bld) 76.8 % . [facility] Nitrite Test strip Ql (U)Ord ered By: Rubén Cardoso on 07-19-2023 Nitrite Ql (U) Negative Negative [facility] No Panel InformationOrdered By: Rubén Cardoso on 07-19-2023 Blood Gas Critical Value See comment [facility] Comment on above: Critical Value negro d on: 07/19/2023 at 16:54 Blood Gas Sample Site Venous Fir [facility] FiO2 28 % [facility] Oxygen Delivery Device Nasal cannula [facility] Venous Blood Base Excess 1.9 mmol/L -3.0-3.0 [facility] Venous Blood Oxygen Content 8.5 mmol/L 6.6-9.7 [facility] Venous Blood Oxygen Saturation 95.8 % 73.0-76.0 [facility] Venous Blood Partial Pressure CO2 39.4 mm[Hg] 38.0-50.0 [facility] Venous Blood Partial Pressure O2 77.5 mm[Hg] 35.0-45.0 [facility] Venous Blood pH 7.44 7.32-7.43 [facility] Estimated GFR (CKD-EPI) > 60.0 mL/Min [facility] Pharmacy Creatinine Clearance (Chem 76.94 [facility] Nucleated erythrocytes [Pres ence] in Blood by Automated countOrdered By: Rubén Cardoso on 04-04-2024 Nucleated RBC Auto Ql (Bld) 0.2 /100{WBC} 0-0.5 [facility] Partial Thromboplastin Timeo n 07-19-2023 aPTT Coag (Bld) [Time] 32.2 s Normal 25.1-36.5 [facility] Comment on above: Result Comment: A he matocrit value greater than 55% may lead to inaccurate results in coagulation testing. Patients having hematocrit values >55% require a special collection tube for coagulation studies. Please contact the laboratory at [phone] for redraw instructions. PERFORMED BY: [place] [address] PATHOLOGIST ETHNOARCHAEOLOGIST FREDA ALCAZAR M.D. Performed By: #### A JAHAIRA, VASYL #### [address] Platelet adequacy [Presence] in Blood by Light microscopyOrdered By: Rubén Cardoso on 07-19-2023 Platelets LM Ql (Bld) Normal Normal [facility] Platelet mean volume Auto (B ld) [Entitic vol]Ordered By: Rubén Cardoso on 07-19-2023 Platelet mean volume (Bld) [Entitic vol] 8.1 fL 6.6-10.1 [facility] Platelet morphology finding [Identifier] in BloodOrdered By: Rubén Cardoso on 07-19-2023 Platelet morphology finding Nom (Bld) Normal Normal [facility] Platelets Auto (Bld) [#/Vol] Ordered By: Rubén Cardoso on 07-19-2023 Platelets (Bld) [#/Vol] 297 10*3/uL 150-450 [facility] Polychromasia [Presence] in Blood by Light microscopyOrdered By: Rubén Cardoso on 07-19-2023 Polychromasia LM Ql (Bld) Slight [facility] Potassium [Moles/volume] in Serum or PlasmaOrdered By: Rubén Cardoso on 07-19-2023 Potassium [Moles/Vol] 4.1 mmol/L 3.5-5.1 [facility] Protein Auto test strip (U) [Mass/Vol]Ordered By: Rubén Cardoso on 07-19-2023 Protein (U) [Mass/Vol] 300 mg/dL Negative [facility] Protein [Mass/volume] in Ser um or PlasmaOrdered By: Rubén Cardoso on 07-19-2023 Protein [Mass/Vol] 6.8 g/dL 6.4-8.9 [facility] Prothrombin Time INRon 07-18 INR Coag (PPP) [Relative time] 1.0 {INR} Normal [facility] Comment on above: Result Comment: [...] 3 - 4.5 Performed By: #### A ZACHARIAHONUAERIN, CUU #### [facility] [address] PT Coag (PPP) [Time] 11.9 s Normal 9.0-12.9 [facility] Comment on above: Result Comment: A he matocrit value greater than 55% may lead to inaccurate results in coagulation testing. Patients having hematocrit values >55% require a special collection tube for coagulation studies. Please contact the laboratory at [phone] for redraw instructions. Performed By: #### A DDLORIUAERIN, CUU #### [facility] [address] [place] [id number] [facility] [[email or web address]] Prothrombin time (PT)Ordered By: Rubén Cardoso on 07-19-2023 PT Coag (PPP) [Time] 11.9 s 9.0-12.9 [facility] Comment on above: A hematocrit value g reater than 55% may lead to inaccurate results in coagulation testing. Patients having hematocrit values >55% require a special collection tube for coagulation studies. Please contact the laboratory at [phone] for redraw instructions. RBC Auto (Bld) [#/Vol]Ordere d By: Rubén Cardoso on 07-19-2023 RBC (Bld) [#/Vol] 5.21 10*6/uL 3.90-5.60 [facility] RBC morphologyOrdered By: Nitin purvisatif Cardoso on 07-19-2023 RBC morphology finding Nom (Bld) N/A [facility] Redraw [place]ron 07-19-2023 AST [Catalytic activity/Vol] 23 U/L Normal 13-39 [facility] Comment on above: Result Comment: PERF ORMED BY: [place] [address] PATHOLOGIST ETHNOARCHAEOLOGIST FREDA ALCAZAR M.D. Performed By: #### L ACTSHERRIE VELASCOLD #### [address] Redraw Potassiumon Potassium [Moles/Vol] 4.1 mmol/L Normal 3.5-5.1 [facility] Comment on above: Performed By: #### L ACTSHERRIE VELASCOLD #### [address] Scan and CBCon 07-19-2023 Anisocytosis Ql (Bld) Slight Normal [facility] Comment on above: Performed By: #### S CAN CBC #### [place] [address] [place] Basophils (Bld) [#/Vol] 0.0 10*3/uL Normal 0.0-0.2 [facility] Comment on above: Performed By: #### S CAN CBC #### [place] [address] [place] Basophils/100 WBC (Bld) 0.3 % Normal . [facility] Comment on above: Performed By: #### S CAN CBC #### [place] [address] [place] Eosinophils (Bld) [#/Vol] 0.3 10*3/uL Normal 0.0-0.45 [facility] Comment on above: Performed By: #### S CAN CBC #### [place] [address] [place] Eosinophils/100 WBC (Bld) 2.5 % Normal . [facility] Comment on above: Performed By: #### S CAN CBC #### [address] Erythrocyte distribution width (RBC) [Ratio] 15.0 % High 12.0-14.8 [facility] Comment on above: Performed By: #### S CAN CBC #### [address] Hematocrit (Bld) [Volume fraction] 44.5 % Normal 38.8-50.0 [facility] Comment on above: Performed By: #### S CAN CBC #### [address] Hemoglobin (Bld) [Mass/Vol] 13.6 g/dL Normal 13.0-17.0 [facility] Comment on above: Performed By: #### S CAN CBC #### [address] Lymphocytes (Bld) [#/Vol] 1.9 10*3/uL Normal 1.00-4.8 [facility] Comment on above: Performed By: #### S CAN CBC #### [address] Lymphocytes/100 WBC (Bld) 14.4 % Normal . [facility] Comment on above: Performed By: #### S CAN CBC #### [address] MCH (RBC) [Entitic mass] 26.0 pg Low 27.5-35.2 [facility] Comment on above: Performed By: #### S CAN CBC #### [address] MCV (RBC) [Entitic vol] 85.3 fL Normal 83.5-101 [facility] Comment on above: Performed By: #### S CAN CBC #### [address] Mean Corpuscular HGB Conc 30.5 g/dL Low 32.5-35.6 [facility] Comment on above: Performed By: #### S CAN CBC #### [address] [place] [address] [place] Microcytosis Slight Normal [facility] Comment on above: Performed By: #### S CAN CBC #### [place] [address] [place] Monocytes (Bld) [#/Vol] 0.8 10*3/uL Normal 0.0-0.8 [facility] Comment on above: Performed By: #### S CAN CBC #### [place] [address] [place] Monocytes/100 WBC (Bld) 22.44 % High 0.00-20.00 [facility] Comment on above: Result Comment: For adults in ED, MDW > 20.0 may be associated with a higher risk of sepsis during the first 12 hrs of hospital admission Performed By: #### S CAN CBC #### [address] Monocytes/100 WBC (Bld) 6.0 % Normal . [facility] Comment on above: Performed By: #### S CAN CBC #### [address] Neutrophils (Bld) [#/Vol] 10.3 10*3/uL High 1.8-7.7 [facility] Comment on above: Performed By: #### S CAN CBC #### [address] Neutrophils/100 WBC (Bld) 76.8 % Normal . [facility] Comment on above: Performed By: #### S CAN CBC #### [place] [address] [place] NRBC% 0.2 /100{WBC} Normal 0-0.5 [facility] Comment on above: Performed By: #### S CAN CBC #### [address] Platelet Estimate Normal Normal Normal [facility] Comment on above: Performed By: #### S CAN CBC #### [address] Platelet mean volume (Bld) [Entitic vol] 8.1 fL Normal 6.6-10.1 [facility] Comment on above: Performed By: #### S CAN CBC #### [address] Platelet Morphology Normal Normal Normal [facility] Comment on above: Result Comment: PERF ORMED BY: [place] [address] PATHOLOGIST ETHNOARCHAEOLOGIST FREDA ALCAZAR M.D. Performed By: #### S CAN CBC #### [address] Platelets (Bld) [#/Vol] 297 10*3/uL Normal 150-450 [facility] Comment on above: Performed By: #### S CAN CBC #### [address] Polychromasia Slight Normal [facility] Comment on above: Performed By: #### S CAN CBC #### [address] RBC (Bld) [#/Vol] 5.21 10*6/uL Normal 3.90-5.60 [facility] Comment on above: Performed By: #### S CAN CBC #### [address] WBC (Bld) [#/Vol] 13.4 10*3/uL High 4.1-10.5 [facility] Comment on above: Performed By: #### S CAN CBC #### [address] Serum or plasma albumin/glob ulin mass ratioOrdered By: Rubén Cardoso on 07-19-2023 Albumin/Globulin [Mass ratio] 1.3 {ratio} [facility] Serum or plasma anion gap de terminationOrdered By: Rubén Cardoso on 07-19-2023 Anion gap [Moles/Vol] [facility] Comment on above: Test not performed Sodium [Moles/volume] in Ser um or PlasmaOrdered By: Rubén Cardoso on 07-19-2023 Sodium [Moles/Vol] 136 mmol/L 136-145 [facility] Specific gravity Auto test s trip (U) [Rel density]Ordered By: Rubén Cardoso on 07-19-2023 Specific gravity (U) [Rel density] 1.015 1.001-1.03 0 [facility] Squamous epithelial cells de tection in urine sediment by light microscopyOrdered By: Rubén Cardoso on 07-19-2023 Epithelial cells.squamous LM Ql (Urine sed) 0-1 [HPF] 0-2 [facility] Troponin I High Sensitivityo n 07-19-2023 Troponin I High Sensitivity 26.2 pg/mL High 0.0-20.0 [facility] Comment on above: Result Comment: PERF ORMED BY: [place] [address] PATHOLOGIST ETHNOARCHAEOLOGIST FREDA ALCAZAR M.D. Performed By: #### A JAHAIRA, CUU #### [facility] [address] [place] [address] Troponin I High Sensitivity 25.9 pg/mL High 0.0-20.0 [facility] Comment on above: Result Comment: PERF ORMED BY: [place] [address] PATHOLOGIST ETHNOARCHAEOLOGIST FREDA ALCAZAR M.D. Performed By: #### A HELADIOUAERIN, CUU #### [facility] [address] [place] [address] Troponin I.cardiac [Mass/vol ume] in Serum or Plasma by Detection limit <= 0.01 ng/Ordered By: Rubén Cardoso on 07-19-2023 Troponin I.cardiac DL <= 0.01 ng/mL [Mass/Vol] 26.2 pg/mL 0.0-20.0 [facility] Urea nitrogen [Mass/volume] in Serum or PlasmaOrdered By: Rubén Cardoso on 07-19-2023 Urea nitrogen [Mass/Vol] 17 mg/dL 7-25 [facility] Urine Cultureon 07-19-2023 Bacteria identified Cx Nom (U) 25,000 colonies/ml mixed bacterial skin contaminants 2 Days PERFORMED BY: [place] [phone] PATHOLOGIST ETHNOARCHAEOLOGIST FREDA ALCAZAR M.D. Normal [facility] Comment on above: Performed By: #### A BRENNAN CAMPOU #### [facility] [address] Urine bacteria detection by automated methodOrdered By: Rubén Cardoso on 07-19-2023 Bacteria Auto Ql (U) None seen None Seen [facility] Urine clarity by refractomet ry automatedOrdered By: Rubén Cardoso on 07-19-2023 Clarity Refractometry automated (U) Clear Clear [facility] Urine culture routineOrdered By: Rubén Cardoso on 07-19-2023 Bacteria identified Cx Nom (U) 2 Days [facility] Urine glucose measurement by automated test strip (mass/volume)Ordered By: Rubén Cardoso on 07-19-2023 Glucose Auto test strip (U) [Mass/Vol] 500 mg/dL Normal [facility] Urine hemoglobin detection b y automated test stripOrdered By: Rubén Cardoso on 07-19-2023 Hemoglobin Auto test strip Ql (U) Negative Negative [facility] Urine leukocyte esterase det ection by automated test stripOrdered By: Rubén Cardoso on 07-19-2023 Leukocyte esterase Auto test strip Ql (U) 2+ Negative [facility] Urobilinogen Auto test strip (U) [Mass/Vol]Ordered By: Rubén Cardoso on 07-19-2023 Urobilinogen (U) [Mass/Vol] Normal mg/dL Normal [facility] Venous Blood Gason 4 CO2 [Moles/Vol] 27.2 mmol/L Normal 24.0-29.0 [facility] Comment on above: Performed By: #### A BRENNAN CAMPOU #### [facility] [address] [place] [address] [place] HCO3 (Bld) [Moles/Vol] 26.0 mmol/L Normal 23.0-29.0 [facility] Comment on above: Performed By: #### A JAHAIRA CUU #### [facility] [address] Oxygen Device Nasal Cannula Normal [facility] Comment on above: Performed By: #### A HELADIOUAPLUS, CUU #### [address] Respiratory Critical Normal [facility] Comment on above: Result Comment: Crit ical Value called on: 07/19/2023 at 16:54 PERFORMED BY: [place] [address] PATHOLOGIST ETHNOARCHAEOLOGIST FREDA ALCAZAR M.D. Performed By: #### A DDONUAPLUS, CUU #### [address] VBG Base Excess 1.9 mmol/L Normal -3.0-3.0 [facility] Comment on above: Performed By: #### A HELADIOUAERIN, CUU #### [address] VBG Draw Site Venous Normal [facility] Comment on above: Performed By: #### A JAHAIRA, CUU #### [address] VBG Frac Inspired O2 28 % Normal [facility] Comment on above: Performed By: #### A JAHAIRA, CUU #### [address] VBG O2 Content 8.5 mmol/L Normal 6.6-9.7 [facility] Comment on above: Performed By: #### A HELADIOUAERIN, CUU #### [address] VBG Oxygen Saturation 95.8 % Off scale high 73.0-76.0 [facility] Comment on above: Performed By: #### A HELADIOUAPLUS, CUU #### [address] VBG PCO2 39.4 mm[Hg] Normal 38.0-50.0 [facility] Comment on above: Performed By: #### A JAHAIRA, CUU #### [place] [id number] [place] VBG PH Venous PH 7.44 High 7.32-7.43 [facility] Comment on above: Performed By: #### A JAHAIRA, CUU #### [facility] [address] [place] [address] VBG PO2 77.5 mm[Hg] High 35.0-45.0 [facility] Comment on above: Performed By: #### A JAHAIRA, CUU #### [facility] [address] [place], [place] [id number] [facility] [email or web address]] WBC Auto (Bld) [#/Vol]Ordere d By: Rubén Cardoso on 07-19-2023 WBC (Bld) [#/Vol] 13.4 10*3/uL 4.1-10.5 [facility] XR chest 2V*on 07-19-2023 XR chest 2V* [facility] [place] [address] [place] [address] XRay Report Signed Patient: Corona Wharton MR#: [id number] 1 : 1945 Acct:[id number] Age/Sex: 78 / M ADM Date: 07/19/23 Loc: ER Room: Type: [facility] ER Attending Dr: Copies to: Rubén Cardoso [...] David Zeng M.D.07/19/2023 5:37 PM Dictation Location: [place] [address] Transcribed By: ARCHANA 07/19/23 6197 Dictated By: David Zeng II, MD 07/19/23 1736 Signed By: 07/19/23 1737 Normal [facility] pH Auto test strip (U)Ordere d By: Rubén Cardoso on 07-19-2023 pH (U) 6.5 [pH] 5.0-9.0 [facility] EMS Documentationon 08-09-19 EMS Documentation Please click on link to see report [id number] udHNbMTMxMCAwIFIgMTIyMCAwI FIgMiAw IFIgMTIyMSAwIFIgMTMxMSAwIF HjH7Qyi7PUh1etMG2eJKWqDQM6 XWZzLWL6IDWyGV7pE9WtvTYn TYN1RuRcNPMrEEIvSAG4LKNsCW KoAWDwhEIEx5flBU6iEXRrIZR5 KDRtQVF7CDTuYI0tMKeuMA9k P4BwtkHfcZJdJONjZRFxGz0AMN BvpYEhRLL8MH0Lw6grmaKbCEXv OUthD0HlIPGoWVjpILHBCg1y Xf4mmWm6O1PWUJVaAPV8QJUsEu 5DWZGzULU5MeMlEXPsPASeTVNq PPLbUu3EQKZoJHMjLVFJSo0q GBSeZ1RezPzwSFYMM0KohXMlT0 E7oMtCgIV8QXIyVdM1HSAwFh9I C1UhFJL6HXOmYQqoGEQUTc4k Vk27ZPNuUOYjD5TxpRX6OMPpHC 98prW8Y7Z9dJYfQWCeCJ5ARIQi L1M+UyatogGuYvlUVtNtXN6y khk7PZ7ZNK9vaKujVcH1SQY+Pn O8biFotSzjI0WeMBWnTUCrLLHf nrczXQR4WFDrLIdnVdj7QP25 APQztxBOOvdxYKCcB74BNCZnFw LtJgc8RYA2QnCvUJ42UDPpMNxf CrXfDC5hZIT2VJLvYaDbKTqk Nhc1GJ7bWmw9NDFwWbTEGjcyDj Z9NTxgIg79DQFuCYKoVuRlXURo YwFodrQRWso7KCHvAwKkYxBa LCGvNeJiQQUiwaQRYlnoMLF4FW HoON03URX6MMWvDScgEiOpSJ3g ROT7CXXaWK97LXK8INTsDYpx WlGdUE8aPFL8JBPgBO97JVJ4KM FhATugJvH0Yx2gYFS1EEJcCJ99 NTEgNTQgcmUKZgozOTMuMjUg KhXtAVJpYbHwTFA7KJYwKlPAOU GeEjd3Qfw0FLE0CcTcDD11ZSRn MDcoJoHvROC7AWO0VvIbVHOw EzYltpKMXqdsLIH2UGlhTtSxFV 02UILxGHFrKxPqczSMDas3AVZp KqMdAfw9Ueg0RAWuKoHvIWAw CL23XKWqAhDUPF72CYsqBUNklj jwXM77DAX3FNcgVWs6RyGhKVEg DGKrSqEINLPun8CfJfHiXrf4 AVZ3Yn22EWQ5QtCxLLFeGP13PA FeIRlgKiPdRZU9ZV4iTRU4PlWq FBDkUqZojjHOOfaxIUI8NnXr UBv0SY9tKzu1LIRxRnEVXWFhNO A6XjA8QBYcStWoGGY9UXMaHnPU DHj0WvW7WRO2YR0bOMVgIxv3 DW16RQFaPSprOoWjWXC8JTGlC3 9FRTFgUgUnEYF4RkCvAhb9UfF3 NS5vUvCjMRclAfXyMOWghban VI76ERL9USccJaSmWrj6GfC3NP 2iSta4IFJfMpTAKI34RBnrVZJa yibcCQfwLEH9GbRwBkq8WgC6 YU9jCzHqAElcHqWqWIDtehwaMD cjJPG2PxB5AEG8Ij4yFSHdPU76 GMOfENbkReKsHEVlZA1zXHR4 FtXqATVoCcLuuaNMHestXZI8GC QiGGG6YwMtJLTgPmCmzhSIZzaa ITR9FlAnLjDpHR00BCVdRuqn VEGpNAhaQfD9ZL2kKWC8TeKhQn TkQM54CHGqOnqbTOCcFBtuWeNq ERM5QTQnM01AYHWnQtDvYPNv XaNmHLx0WqVdWCRhODJaRpNURS Kad1ZmPhYhJvp6PGEkGg0pWLV1 RqBhVXMqNJ22ZWNxSZzrPoIg QtH6XZPfXMO3Vmi5EO5wRly0TS KiBiMNLZT7IXO7XA5fZEPdDGMs SgEiVZRoUbCtmzMFFdn5Slnv QPHwXSIlUxFwTTV9YrWknlIDQc e8GKXdHNUqTKIfLjYyFWJ6BhLe meUQHpuwWzixAEBhq6GqAdIs Um59MGB5XUzcNcOaIJI4AuX0NI 2nLeVuXJchCwBmZANkfqv5Efxj EoItPXy8TKZ6KJ8uAKFaQJ80 AUJaGSzkCtPoERF3YY33PWG0Um BxKIPjCdJpeqQHVihlZJR2XDZn QBi0AG8tCob8EHFlUmKCYRHj BSY6Suj4XEXvRvRoQNC4DaZlrb GKLtw3HZYpPcElSKH6Aec8YECn IlGsTWT2WkIcqyVGQggvGygi WBEfu0LhTdBzUqk3VUS5GNG5Fx GoTTXeZJCshiXTSpsoUQMyU55S LCZtPtXuSWWeJrw5NZD9BI16 QQ7xDxq3UZWiMoBDJLWzEFEcPt Y5ZJH5JuLbKB80WGNxWSubTnRp OJQ1IM08BGX5JoMlFUJqXqTg wtFJAnowGNE5TWIdAhEqJX38VZ CtGdPfQlHuhgECGoi8PETaYzCh GOTkKoG0ACHjHoYsMJVnTkD4 VQEtXnXEOU25QZemXPUeexddYY 65YEX2NLRzMTX1IjJuOJInNXCt wtQOBgfuUCGhB82GFXUcSjCp Euy4TxC8XHA2QT30BJ0jSqn6QZ ToBiMIUAIkSvSpWaU2HAD6YgFl LD04GKNeRQlvMiAoKPBdLH48 ZVA9CsPiJP04DAZiTSynDhInUE J5KB1gCYQpOev1WE57Hj39AHEe PnBEYFe1QjO6OVP6VL0vSQGj Ife5EB30Fv29OKBtTuXBRH38RY ocGYJgdaqxZN44AAJxUSetPMC2 NzQuNSAtMTIgcmUKZgowICBz L45TPUUiQwMgDnS4CvG1BRZ8PS 75LX7dPqm0ONRxKdSKWD77IEvj IHNjbgoxNiAyOTQgNTYzLjI1 MI8dZQ14TTZpCgHCVNRlt1TuJn K1DGH8Ee63KVK8Zdk8OI39MT19 AOQfWnWXBB21SCbpTIMxwzjx SmFnKENnPOYfRx92ELSgIFUxRM ZeZTnqAxLiLQVliyq4Se30NXZc SQWkLNX6Xc79UCTtBjFfDhVo faDVRwfbUzgaOYOwl0EfHlQcWu d5VPY0Vw79JSVhAlj3ZG1rBE9y DMLeFNikXdUmMRXzxgj3HP49 URR6Hb15VJDdCsH0WD5wVD2sKY RlZExuAgRbRDI4MITnQ41KJCKt YLXaCUDbBXUzAV2lXDEzOkXc HhQjqfTGBuetURWkW31MNVW7Sz e2CPJ5Jd06REJ5MkOoQQHuMgI1 QNRlHnHYPK39KFawUMUcbdmv MTUuNzUgMjgzLjUgNDkuNSAtMj LmZlYtbuUPGjtkCZWxI57WMKI2 CiQ0REI2Bn06JBQ8HiNuODDg XcA6TLIlQpNARQ12JJghSOLucv oxNjUuMjUgMjgzLjUgMjguNSAt MgYyXaXvjoSAUwwgYFAzT07C FRorStf4GFA7Kc90LTDwPE3iWL 5fOFEfDWceEwCxFUV1JSEvK48S FTttRvw0UTT7Rb85QJGtFV5r VG5oFZXhDWvfIhHkBIDkbxxoYn UuNzUgMjgzLjUgMjUuNSAtMjAu MaKpvaJOPwssRnnaUFOmc3Lv SsWvKP89ZIZbZLSjWZOuCV37XI 2oOV7yITGaMTkiNoPmJGSqdkgq NjEuMjUgMjgzLjUgNjguMjUg GVKcZaQ2OVZwRjKXIZ42HRvpTK NjbgoyNjEuMjUgMjgzLjUgNjgu DjLaVZEmFpE3LNIaWkOJNNLn d1DsXlIiYI89IJE9At83RULuGc B2VV3wBR8tWLJzOPazSpSuNOM8 RTRaI64POfO6OiJrTdkfBmOg PXZaNtBcJSXxKrS4DDMlCrKSZI Ukz2VnTvR7Ri53IZZbYLUgXBDm Xp94HXJnCnTwFjNxleMFMhbs JezsWGCaz0MlGiH1Qy14HBXcBK QpWIFcEq91TJKeFcRqTcDjgfYH AadlRCKsQ83ITUB5KxUcAipm ZvAmYqMhTdSiECQwMzP3TIIgBp IWDJ81BFypZWSkevq0UMeoHHOv EQUaPIIxFi0hODFyQyEwJrGd krZZNheeWYSdS43QYBXcMer4IA N0Dp99EKY6OcHmYCHkVnY0XYVk TcSZMM30JZzkJQPwrhb2UJOc NzUgMjgzLjUgMjguNSAtMjAuMj NanjGSXjkqIETfW19VICaoZnI6 HBF3Oy66ZZS8AO3qXM9eNGDn OIdrPtTjDZA2KCJpY17IMHntTy G0NTG5Sn07ERO1OL4zPR0uDUWh ULqbStMuKEDzyln2MOogDoKw MjgzLjUgMjUuNSAtMjAuMjUgcm YOTxicFbofWKYnu3RxRvFpDL9d RWAlDIThUYCdKU31EN7aPK0x JHOpDNmrZqDcJOQzleu9WHVpTp UgMjgzLjUgMjUuNSAtMjAuMjUg mmMQGmugBeccFVJtz6QwSjH5 ZT51ZREtERCuIRXhPU51PD2bIW 5gVROaODvhDoMjESQwnov8AcWy MjUgMjgzLjUgOSAtMjAuMjUg kpPYQepdNykfMWNfn1BvOjM1KJ 1iRHZnDLCkMAN1HN3kVG2qFHEu DVdvAlKaXSCkdex1Zq33QCVd NfVuLdQlQTVgJbQrMIYhOvD3WJ KmUtWSLQ02WFulRZGjjeu7Vv87 NSAyNjMuMjUgNDIuNzUgLTIw YqY8JFFnFeOWNDEye0QeOmm3Sz FeWtRtJkO8NLJdCnQ8WG7fOX1n IDOmZQqbAiIoFTV7ENTvO08W OTUuNSAyNjMuMjUgMjAuMjUgLT NdQnN2POZqRxZPNQXbn2BoHqEu NU13BMRtYmYhUmRaAXgbEUAs MjAuMjUgcmUKZgowLjkxOCAgc2 QjTnAkQY94VXMjGqEfOoKdDDsw NSAtMjAuMjUgcmUKZgoxICBz R73CBYS0VxL0NGM8Pk6rRXDzIU 44SO2aTI4nPGPmHBynWzXgDWF9 ICBz (more content not included)... Normal [facility] Coding Summary.on 07-14-2022 Coding Summary. CD:[id number] Ww+PGh lYWQ+ZJ2LGYNhG46ysUIzzZ0lL 0NMTElOSywgQVBQTElOSyIgbmF yAC0fuFVqQPNt IC8+PY2cXUIbCeopvHDfp5H4dA I0L05gkf7eZVrwiNY8EZNvAwLu bxwar4yswKk7HJahWblpCfWc MWRzfQ99RYI2hZ49Do99wNUhyA Bio8nhaAn6XuEdZKShIKY7qTay CRzxr0GeGGIwB77btVUik9Q5 YAXviDrnfQYyGmHjsRK0vX1oKF nbwouqw1bjaywtYlu0ej90dVMs f8Y1cMT0Q7HbqmY7AWKonPVd KejggWEPgD5qapypv3mfeiokFm QbZRFeUDq8DXt5KWCmxGbnObGq HE29MUL8DXAqzdWmU0MxANIo aNrjHzA9t4C0Mc5ZY5RDIrtcG0 VNTUFSWTwvdGQ+EV98rp21Z8Xt WdglUbi8NHOfIKI9jXH6eD7j LVGlXOmcx3W9aVQ1T7EbtkNzew 3dy1xwAKKtGCfnV81biLDmn7T2 BPQcmGX2NMVsvEgwEtUuzG81 Oyc+XFNmePwed0PgRqvfa6tyt9 vxmTp7MbdlUCJbmuPykXmtZDT2 f9FvWb8qNCCwqMT4cVV7sF3m HnEyQfE1INjaM668WxRwuRJnSt hoW46cL3PycPF+JWHzYhb3AXIx jGlcIB7nY2MxHSVtxxugxFPd zOpsRZ6bARPdtrerZYIbzB2kLJ VtN3d0KfOdNxS9KPjtA6YyNJJg zpdmAq97nI8tMpTbPfJ7GJqx Q5EzrqU7GGMtoBWtGHewGDI7G7 6jn2W7YIJyQYXkWMR4wAM9uF3z bGlnbjogbGVmdDsgdmVydGlj PIubFBoyP663FADkuMhrLoJqQS luZyBEYXRlOiAgMDMvMzEvMjAy MzwvdGQ+ELEwRMB0zKokLWHw rTHqLGmtDp4mnPfuiTooKE5fKJ LvlmfrVUPaaZ8zRBAvhDQlyUnw RV9gMNItgkyet932UwJgIVU5 ZJWhoPLuL5RvbU8wByUiVSQlGK TtJ2MtgIXtEHfiH115MWwhZvZ1 TCPrdqRbF4ZwFBRdlZgrCzB2 l5O5Vg0Ym2SydwqkM8BdeDYnGg UzCqlqCGp5L0CiHjvxaWA+PC90 AVZbTL18YUe7VOY8pGaiFPyn NPTtJ7MrdM6ePnEcGEWcEUZaDp c+PHRhYmxlIHdpZHRoPScxMDAl UdFabOtnTE8gIz4nGFZyMSDi qEwzpATnRhNnz4fwPZOxCYmlCL 1feJzfF6AjbHT8NSLef7d7Uw17 R95cH6ImwGC+PHFygJG2bTR2 jU5hVqAqTyO3MKzjH959LuPgiB SmGcstf0opi3rfsEu1RfP5HFWq luIbcFlzJQN0g7NwCg81K89t IHdpZHRoPSIxNSUiIHZhbGlnbj 5yoP2jQq8+DKLbrJJ6uKW9kA9s SvLdZrL9GQedP597FdBzySGf Tutnk4ddx4tldSa6HgLmSMYtph TxzKzhBPA3p3YeZw49C9DnvKpy g2JhTjv1bz96oGLyz4N1zIB1 L7LmAZDityjohTDfvSrrSF5fKZ EymaglZROmvO4qUXVwM5a2AvOc AaJ7JVfwU6XobgF3BFPnvKSe BXBtiGVThU5elpirv3veutwjYi UyCXPbXCf7JUu1CURnyEvaKjRa GIR5CtR7UXL2hCQebG7raYxk qixgsS4qYin+MOB9mYLowMODRM 1lOjwvdGQ+SAFiJFJ3mHstLXlg TMBhaR9dVHFmP8d4TjFwJzJ7 JNitE4SxdyE0KLFmeBIvSERenY JDiN1tcsrym1ozppeuNwFoLJEq UZl4AZf5DSLlmGujAzJoCNM9 LxK2MKP0fQIyeU4doPosnniazN 9wOyc+ZkrluPmqNWL8LUj7P3Ci Lgo8BZVmwPwdSE9dqATcZOxy Co7yoSiniCuzLO4vIBPjummda1 28MrRjh1iiFQVjwLEtZVsmIBQ8 Y68cc3W1IEBfGDMzRKV9xPS9 gW9ruNttqzxefOJymZwukzDhtE bjPGpuQOryF676AUEolNwlGvPg DXa1V1IqArj1LPLttPkaPZ1c cYZjBZepEr2kuCgrcBinWM5pWA Lozbofs520OxHyq6hrXRWfqYEb OLtqCSG4Z89py4M1HWKpYJCt HZP9fQI5gG1lgDyoweavqQYsjF iacsHerNjjZHmlPZffN045MBAu iClwGlKnuRx3G6NnEwq5OHHg rQylFL6ltUOtUEhfVy7bjAwswR ntIO3mTPYeeemkt310FtNmj5ub BCHgiZDgLYvxRDH8D82bc3I8 WJXxCVQdPCH7nGW0bY6huBtcce ogbGVmdDsgdmVydGljYWwtYWxp J925QMHjjAgxDhQbqQostzVt XNlfIJs1P0YnRxzttFZ+PC90YW VuRV13eSAyjCDqg5dzqXx5YtOb NOCjCVX5nZojVVfvm1EdIMXs O15rhNUyr7C2MCZdxWpmuSFeNf WwkKL5bD5kFIjwzgogq7bomahu Fklli3ehta16vF07X82kRKyz SSSqPDPqWKKlIFSuvVrilu4zpR 9wIi8+CVZicFZ2aKL4sS4eEBQx CnJ4REloF070GzTeyGGzUorp r6xpc4ysbOl2EsM8ZTZpxpScyJ jbMYJ6o0PwUk16C63iHDcgASSv ALAbBJVdBEQsqFxxsx7ddZ9u Ii8+DUHntDD0cGF0yX1qOxSwUs T5LCxrE731CgXsdLPcUkkrD93c C4DadKW+VQJtQxl4LAOdnZbs FZ9kgJXbUQnlPw8kCHW1SzXbSk WkEOqjD4LlVIGkgwwnpmroiCV8 UMXeJTJflQ38Kj4pgUpuLFGv rDSRvZ2slmcpf3cbqbnyLpUsQD RoYOs1GZr5FFTnyAyeOqVvWWC6 QeO5OYG4cFNzvZ6faRqvmiuw kH0qR3SiBBMhnxpdUr37eQ8xWs IcFaB4JQxmWmr+Q4RTDWCYYNMN Xp4SXNN1X6VcQqd5QPZseCnk JX3qhAXxMAeoSm5faTklzHlcCI 6yAMGmnrknFFMwqD6qQZTzqBCk kTheXO8mIDRptzofq201XjXq WKW4KTQkyGAfN9KgoT1dZsXkMG WdBOJtE8YbcVVnXQacF051XAju GvM6NLIqlqDaX0IiZPOewCgj IzU7k6K4Oi8eCW3aPz3kNVF3GN 30FI75yHUoo1E1iNQ1T4VpATSu vnbibxrhsQS8MDJpNWIykI25 xJAzJLfxIl4rn3J2f145NFFsCH YmhC49Hg5plGsuGLOzcAZXtT8c mwrzp3rsuvayKuLuHYNeGXe5 OPa5RNGtjPyjTdSqMQB8MrD7LS F7cBKdvF1zpEycouskqW2wSli+ LgAjSCHnpaT9C5FjPof3EEXk vQqjZR9hcTClILhmQu2igLstxA zaSJ2sRWGbhqhnDLRrkO1oVPBx cZDbwVaaUB7zUUHkwxkpy823 IjYbZAL6ZIJwoZMdV6BhxE8nUq GiGWJlHEDiV8OazSYsRVgpL609 PAbfJfO2COPnpzDdO5TiKFEt dNdoUyU1k6S3Ei5HBCjbLH11OC 70yQQps7L1vIM7T8XgEIXoohpr mpkqoVM0JXLgVDXysX29nRTf XSbtRr6jv5F7n599HKJlTQDliS 56Hk6ilLavPEAcsDSMfF8xahbz c5mlirsoKhDiTLSjZKi4UJu4 YTAaeKrdAzHaNJM0JcB1KAB7gT XvsY5vyCercqwhaR5uIfb+RW1l thnblbT0NB73LF95I1OnJrhw dGFibGU+PHRhYmxlIHdpZHRoPS jjLVLuNbAkuXtjZO1cQu6hXHJg KEKmmGbqaUQuDjUiz8tzDRJu XAokCH1ibEmqQ6LoxRO6VCZbu1 a1Re95U00aP2UxwRF+PGNvbCB3 fYE0iB1nZqFuGxE8PWmlZ712 KjSvuPFvVqhbp4oic8zzhWj0Rt DfQPPkvjRltWldMXN1w2KxUn54 R22zIRpoYZWkNSTjSSIxJBNt dUedzk3stZ6xEc6+VAMoaPW6gQ Z7rF9aRpIiXtI0WLnbC609XcPj wZYbRalzH00sG9KecUY+PHRy Qzf6JBLksUvuXU4pwBFdGVzqMf 3oIPP7VsXjSxZmZRbuX9ThTXCe vtzbzupimED2BGOwJIIbbU02 Vf1zxOuaYy5aOQIpDEN0ZRDukO DmP1KcoO4qWxWyOXAjMMDtV8Bg aXNhTTttX773KTdoOhH2ESEp pmKiM9WyQAVvgIqiItH0p2P3Et 5JuPdqtTNhRV9rMvItKUb7Y5Dp Pys2DVLppBflYC1yuKQqCMcs Kr6oqUaizHbfXL8nEATykmsyy9 19YpZom8qiVNUplADjPBubEEN6 Y46bt1J2UROoIGOtZTA5ePU7 bD1xxYuduvmeeDRttAuubiJygI dlCKolXNqqJ306RAVmfUjyLgWN Wmd1T8ByCqt6DHIruEjoCE7c kBKeWTsbYa1ldUfmpEtsOV9rMV Envskuh530DjGan8ypPPFpgNEv TFanHZJ6Y25fj6Q0AKTyVEPh ZOO2tEK1pB1ewJtqmxeihVOdwZ nzljHrdMbfVYlhPAaqI444NLJz kLzdWz0NJmg4R4UbKqk9ANLm ePgyFZ9ucDRvVRmlTg3xzAhtqU rhXC1jXIFfjezsa338KuEji6be VUTrfXPbNKorLXD5Z50ud8W5 UQRaDKXeVYJ0zZC9kR4paSqirg ogbGVmdDsgdmVydGljYWwtYWxp T801OBKnnQvnFzHdjYHgOusp dGQ+DO93zk19B4WoWudzQdh7RI OqWYK2dAU1iP1mJKBsSZnjr4K4 ySK1H3OvmrCapa7og1ewWCIl ICwtP83q (more content not included)... Normal [facility] CT Head or Brain w/o Contras [...] MD Transcribed by: TRACEY Technologist: NICK Normal [facility] CT Maxillofacial w/o Contras ton 07-11-2022 [...] Lopez MD Transcribed by: TRACEY Technologist: NICK [facility] CT Spine Cervical w/o Contra ston 07-11-2022 [...] Lopez MD Transcribed by: TRACEY Technologist: NICK [facility] Consent for Treatmenton 06-15 Consent for Treatment [id number]:127 [facility] Discharge Instructionson Discharge Instructions [id number]:127 [facility] ED Clinical Summaryon 2022 ED Clinical Summary (Inserted Image. Mallory ble to display) [address] [address] ED Clinical Summary Person Information Name: CORONA WHARTON/Yao Age: 77 Years : 1945 Sex: Male Language: Turkish PCP: Idalmis Silva MD Marital Status: Visit [...] 07/11/2022 09:57:32 07/11/2022 09:57:32 07/11/2022 09:57:32 ADDRESS: [id number] [facility] [id number] PHYS DOC NOTES: MEDICAL INFORMATION: Prescriptions Given: [...] Follow up: With: Address: When: Idalmis Silva [address] [place] [address], [address] [place] [id number] [facility] (1) In 3 days 07/14/2022 Comments: Call [...] fall; Closed head injury; Facial contusion Normal [facility] ED Note-Physicianon 07-12-19 ED Note-Physician Basic Information Time Seen: Sukh ROCKWELL Gerson RodriguezFausto 07/11/2022 08:10 History of Present Illness 77-year-old male to the emergency department chief complaint of fall. Patient reports he has a history of stroke with chronic left-sided weakness. He has a hospital bed and uses a bar on the wall to get out of bed. 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 He reports that he [...] Silva In 3 days 07/14/2022 EDT [address] [place] [address]- Business (1) Additional Instructions: Call the office [...] or worse (more content not included)... Normal [facility] Comment on above: Result Comment: Minerva snell Signed By: Gerson Luz DO.cristiana\Date and Time Signed: 07/11/22 09:38 EDT ED [...] Ask your health care provider for a wduy-bg-gfan plan for gradually returning to activities. ? 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 Have them watch for any new or worsening problems. General instructions ? Take aurs-ogk-hnbvbun and prescription medicines only as told by [...] how mu (more content not included)... Normal [facility] ED Patient Summaryon 023 ED Patient Summary (Inserted Image. Mallory ble to display) [address] [address] Patient Discharge Instructions Person Information Name: CORONA WHARTON Age: 77 Years Arrival Date: 07/11/2022 08:09:24 Discharge Diagnosis: Accidental fall; Closed head injury; Facial contusion Primary Care Physician: Idalmis Silva MD Provider Information Primary Provider: Gerson Luz DO Advanced Roustabout Crew Leader:None The exam and treatment you received in the Emergency Department were for an urgent problem and are not intended as complete care. It is important that you follow up with a doctor, nurse practitioner, or physician?s mechanic's assistant for ongoing care. If your symptoms [...] Follow-up Instructions: With: Address: When: Idalmis Silva [address] [place] [address], [place] [address] Business (1) In 3 days [...] opioids can be used to help relieve ankykpkt-ev-jtmwes pain and are often prescribed following a [...] pain. o (more content not included)... Normal [facility] ED Traumaon 07-11-2022 ED Trauma [id number] [facility] EMS Documentationon 07-12-19 23 EMS Documentation Please click on link to see report [id number] [id number] zShLaCA8eol6GJNwWS5AyEYLzN XfmIp4C LQecUSq5ZDUjHN0ND3qrNIe4Dw U7Bz5HhX1yYILappLpGFBPS42y PqbzYgNwUQdfOUNhTRR5ZNRN Jr0pTWApDNVpOHYpRRWsQBJiMR AgICAgICAgICAgICAgICAgICAg ICAgICAgICAgICAgICAgICAg ICAgICAgICAgICAgICAgICAgIC LgQUonxvHnOxzPAz3EkISmFb7Q MjIgMjUNCjAwMDAwMDAwMzIg NRHzIGYzfz5XTRNlQLXsCHL1NK AwMDAwMCBuDQowMDAwMDAxNTg3 RYYzZIFdPQ0AFqShPIMwOSU7 RFCxOSLtYIElha9FICSpRDPpLG kzNCAwMDAwMCBuDQowMDAwMDAy VFv7QXFjNLAcDT6RFxMxITLe HUJhZsOxRCXvXELwbg2KNDPvRR AwMjMxNSAwMDAwMCBuDQowMDAw DRRkLkb9HIScKBJcMY0GOdCe OOHfMTJ9WKpuXMWkJSFxta3JXC AwMDAwMjgwNSAwMDAwMCBuDQow DXVjNJWpSZV6MIQvRASkMF9P ThQxLEQlUGE6RZyyRUQyVTAdzf 0KMDAwMDAwMzYxMyAwMDAwMCBu LCeiDWXcDUBfTMB4CBQjWWXf ZI8QHpOcFFWeCPDkMMuhKSVhVL Afnu5KFLUrWKVcJCT4UmBtYHRz HSRzXQseRSZiPUP8XjVaXYIp LZQtAR7WWhJhEBIcPFJ0LuPdLG XhBHWkhw0PUYHkPEFhOYSyVKBm GAQgRJOhSQwjNDHqQTN1VDWb ZMRrIROvDQ4DYcBqJDBgMDC6SJ MkHAAhLQAwcx1WXNErHYToNAW9 OCAwMDAwMCBuDQowMDAwMDQ5 WSLvLYCaXAJxLN0YMhIoYYSiGQ B0AjNcYQDpGWEgno7BaRQziDyg lw0KGDiNP9hGMOt4HRD7USKN MaOiRYJ6WAX5CQf1AfyIRmPMBw NDRjUwNDA+CjwyRDhBNTNBMzdD GAFkYALAVJq2H6WSSLWZLlFU OZJOYG2sOn5MvkM9YBY6RcjnPU uoDb3seOZkPrIzLFTGE9StlwHf PBnIJ1ScfBTcCPQtB7FSTTH8 Pk41VxokxYgJPJE4NQSAVOleZY 7PBvzVFsHxWZrpLt91B3GIo6C1 QyXrL9LTvCnCegMNIAkzV7rG iYS1d5dkcDsKaIXZgBcdFLgHah qAjpJXOCutTFBAyP50tjeHQ3Ro RGa8L6NZRc0XNCstFzJxhG6J zCsnBXU2eM3wCHRFYSyFJjljAK 0CVQSEPDe8YMu+PiAgICAgICAg ICAgICAgICAgICAgICAgICAg ICAgICAgICAgICAgICAgICAgIC AgICAgICAgICAgICAgICAgICAg ICAgICAgICAgICAgICAgICAg ICAgICAgICAgICAgICAgICAgIC AgICAgICAgICAgICAgICAgICAg ICAgICAgICAgICAgICAgICAg ICAgICAgICAgICAgICAgICAgIC AgICAgICAgICAgICAgICAgICAg ICAgICAgICAgICAgICAgICAg ICAgICAgICAgICAgICAgICAgIC AgICAgICAgICAgICAgICAgICAg ICAgICAgICAgICAgICAgICAg ICAgICAgICAgICAgICAgICAgIC AgICAgICAgICAgICAgICAgICAg ICAgICAgICAgICAgICAgICAg ICAgICAgICAgICAgICAgICAgIC AgICAgICAgICAgICAgICAgICAg ICAgICAgICAgICAgICAgICAg ICAgICAgICAgICAgICAgICAgIC AgICAgICAgICAgICAgICAgICAg ICAgICAgICAgICAgICAgICAg JF9Vf7PgybY6jyNiWGueAOdyMU BTPl4HBOseEkKnKQ4ftn7FPXfL X11gsAGcDFZrCMUhHIQfGzxw G3DqelMruEybshKmWoDbUMBFXf 2SgGSUPJjdK3S0qQhnGFLsNXcg SQYDLw3LQQtvCJ8uOROfIIXh Yl9hNCbsGRAePPIzPdLiDINVKv 9LqGVgVO7NHZCrgD4yBt9+DQpl lnIaZpxHCf7CBxYbCRSdLwpF Srw0Zs2YxZa2CCAjF0ZsFZMgXT Rmh5TtMp4SSZ4sjKlaMZR3Dp0S JEv8Sp2+YQjwmXDgJI0NYzus E6DtFXBgEYGjNBEcJAoQIxTPYT pTgGwhqBgXA+OsNgjzizkDMsAQ MpPBHfFHkXOuEzZ5TUiON5J3 HKsCHmSkN2D7NFmROKOLAwLxSU kJzZvN8oZSySuBufH9KJZ7cZHQ DHPrGRgm+bVuFQWuScHTL6KI El6KDE5mt5KuAVQxVFixnsXfVl fOQa9XAhOaIGWfRoaSHwb1Mr3Y e962AP63yiUmEXVjWFWWFPzv GRFuxQEDv3peZpFiHIW9MDXaYm apGDcjLKRnRB31OGRzGDWkMfrv TgWyi5OdA3OxFVr7Du0FS6Rk VDR4WLb0Hz5XIPNeAqXbOdQbLF MSXu7GAg8MJ4U6kJYvW7SbV7IJ Pd6LSqMnCG1gey9WBFfhBeIp JI1glu0NOBoSD9PRg9jxHtPkUN J0JQOeLibcHYnwBeijrXWsBQ2G gRQ0ALHaC59vAXzhEDXwX6Xr GSd6Ca3FRXDdnMCpUSGgGBeAZ9 tPLdaiK6OyYExAJ6otIrL9DONn IDAgUgo+Pgo+IdsoG4DmyZdi YRUyVb9pgFksTCqdCCQiSA0irm VjdAo+Xs5Xx5VcVFUhQLi5jHRA 0IAe7OTbLGMtKEE4DCIazxTA CMlj7IkCpLTlQtSujBGgJ6lfCX Hr84nLWHQiYrrFc1kiFkFu1XhO JZ+OO3POglRvMfPunz5TTPbb gtWykIIxOP9JUnPzJG5kng3CDT clOiKcXA7fmc8ACDkJN5UBEL2H k0PeEFpVF6YRNQLJN8yQFUIM G8nQKFOIU1cWSEPZO53BBLAFQ9 EPNEDbrACTO2RlSVTJVo9UIvTa XF5htm6JKKneCPNrNG3qsk2K XUuPV5ISFU1Te3McLJkAX5YyRN IDBp4CMxZxEM5zrp3HTZcbERJq FJ1kcy0TBSfSA3KALK1Fs1Oh LGkST2QUKDKXV7bVNVAGQ5qNAZ BIE4gARAWTL80SJNHJU5MDYEGl cYDNC4PzWQAZXf5IFaBaDK1r ja7WZQnqQRKkOV9nxc4JUQlQG3 Ump7LWj591SH9VO1iYWjHqW253 ylpzrn7jg6KFEBUnwOEJXOll NFYtO7GiZVDogQXtbxQeGMaaLB TrQNNbCr8RqyIuHWqwMaEwJAAa pcVjoWszPWihL6RhhJzfVNRl WKhqWRDYN3ScUY4lD72xJJUyAi BzUECRA3K5uHQwZ9MdayTVOn6Y RtMsJY2xck4OHWlyALIoRN8m sy9QXZfXK0Ggx6KUp616NH0CC2 dEKfDoH116fbnlbd8lm4GWBAAa nNRYEImrP0cQK6jcdKHuSW1r ysD4ALqxZ0AhYMDbjbenDBtrXC 43rYC1AChpGsShhHZ2wgfaCFCs b5QzGUhxK2WhkEjcpKQraQRp Cj4+Nw6VUVYMq3tKWN4jqPBzLQ BornCehKrRN2IKPLTBD0YnupDL CNCvqqgedE2qXNBoFVIeWbiq W8TrkQjmHXFgR1jFEi3gjNG4kL IePj4XxOZyFA6Mf540Xl4OCKvc KHVmPEB1FSBdMEn9SsKdFg2+ SWsnnnGmRwtXMs0ZDwZrZRWbVa mBRcp5Tv9Dv0HnblAaLZRpOkNx HZKtUc4SQSRQBShkwOQiTKmz Wnw4Uoi9Lu8RMXOdCP87YLCgLI 2kUJU0JndhLycrU6LuRbVFD0At unNBGu29WUfuTFhiFwi7SWYm QO37ECGnLUB1FcHkFcIkXmM8AH V5YUOkMhOcWAelMCMxLa1Gk829 BryaNQExSRYyVWQELn2Df456 XdYzRZDbZ4JMQ8kNO3TpoNMbBT UDTIrKCs0Pt3tmGYKBM2t5QBkb N8OjF9mvYAYNL0R4JB0LQQq6 BzS9BIt2Kd9YkFScYD1Xj444EB VoE2UzkELnsag+Wu4UUS9ph4Ms ZLqQVrLcCBEgo4RpNPd4UUja LxhibEWbFN5LySK3CQQlR24wUN bwUKQbT7BtVSAtUJp+Ra8Rn1Qm BUCdVZg0jQ5Zu04XBNG6+yt8 lQ0PopQhGthbWNvFqL+V7iQOzp SWirGMc+Wkv5WkUxQWERFqwGU6 UJRukIhCTMe5c7bm7Y6J3UHx j73GY6DGDYLHho5ZU1I1PawAxq hr3rfX8To+NKXFfcITV0gdA/6w 1+UQKouc4mJ7Rm/50jsqM16i fq2ETZWknqlBk+cj7tinAcdDzH J5EoHksCsvOdxtzp/JKRxYI4nZ LlXPzcCcH0cXBdy6Ls2r4fjW BS8xZXcGfWmbhDb1LpTKNXNd6b LUBKjFFRdm8eCiCFZ8Mqz13t0F T1WelqY4O72vHDDoheE8dJHH P53TedTeTDetloeOUml6GYDU2d FBMXwwkWGkMiZfWPAiP2j6IYxY lZriSLkohZwKzfxsu54Wo0Yv 7TYWbv+ZT59yOa3oDExtxo1SPQ 6km1AuMHKlVItsjyJfLurKRu2P YoKoTWBiMoeIMiw2Ys2WLOXz Vh7irIBuKpEDBu4BO9ZupUOaTU YIZNqYE24VRa1MVLQxXV1yTP13 Lm3mlYZeJmY8OSSeBn7PT8Lj C47bsN4jPZ3MMARroUm5wM5WCh 9SuHO1nEQsHF3WpZMbUPlrOD2I bmlj (more content not included)... Normal [facility] Pre-Arrival Noteon Pre-Arrival Note Pre-Arrival Summary Name: , Current Date: 07/11/2022 08:10:36 EDT Gender: Date of : Age: 78 Pre-Arrival Type: EMS ETA: 07/11/2022 08:19:00 EDT Primary Care Physician: Presenting Problem: fall Pre-Arrival User: Laura Tabor RN Referring Source: Location: PA Completion Date/Time: 07/11/2022 07:49:00 [facility] Emergency Department Pre-Hospital Report Form _ Vital Signs: Pre-Hospital Report: Treatment in Route: Response to Treatment: Misc. Issues: Normal [facility] US MARLENA DOP LEG LTon 06-21-19 [...] by: GRAHAM SCHWARTZ Date: 2022-06-20 16:[address] [facility] [address] LSPINE WO CONon [address] L[address] WO CON CT LSPINE WO CON INDICATION: [...] or bony displacement. Electronically authenticated by: BALBINA Santana: 2022-05-05 23:41 Normal [facility] CTA ABD/PELVIS WO W CONon CTA [...] RADHA CONNELLY Date: 2022-05-05 23:[address] [facility] PROF CHEM 8 (BAS METB)on Anion gap [Moles/Vol] 14.7 mmol/L Normal [facility] Comment on above: Performed By: #### B MP #### [facility] [address] [address] [address] Bertha Bowen Calcium [Mass/Vol] 9.0 mg/dL Normal 8.5-10.1 [facility] Comment on above: Performed By: #### B MP #### [facility] [address] [address] [address] Bertha Bowen Chloride [Moles/Vol] 100 mmol/L Normal 98-107 [facility] Comment on above: Performed By: #### B MP #### [facility] [address] [address] [address] Bertha Bowen CO2 [Moles/Vol] 29.1 mmol/L Normal 21.0-32.0 [facility] Comment on above: Performed By: #### B MP #### [facility] [address] [address] [address] Bertha Bowen Creatinine [Mass/Vol] 1.33 mg/dL Critically high 0.70-1.30 [facility] Comment on above: Performed By: #### B MP #### [facility] [address] [address] [address] Bertha Bowen EGFR-AF [place] >60 Normal >=60 [facility] Comment on above: Performed By: #### B MP #### [facility] [address] [address] [address] Bertha Bowen EGFR-NON AF [place] 52 mL/min/1.73m2 Critically low >=60 [facility] Comment on above: Performed By: #### B MP #### [facility] [address] [address] [address] Bertha Bowen Glucose [Mass/Vol] 260 mg/dL Critically high 74-106 T [facility] Comment on above: Performed By: #### B MP #### [facility] [id number] Bertha Bowen Potassium [Moles/Vol] 4.8 mmol/L Normal 3.5-5.1 [facility] Comment on above: Performed By: #### B MP #### [facility] [address] [address] [address] Bertha Bowen Sodium [Moles/Vol] 139 mmol/L Normal 136-145 [facility] Comment on above: Performed By: #### B MP #### [facility] [address] [address] [address] Bertha Bowen Urea nitrogen [Mass/Vol] 27.0 mg/dL Critically high 7.0-18.0 [facility] Comment on above: Performed By: #### B MP #### [facility] [address] [address] [address] Bertha Bowen Urea nitrogen/Creatinine [Mass ratio] 20.3 mg/mg Normal [facility] Comment on above: Performed By: #### B MP #### [facility] [address] [address] [address] Bertha Bowen Progress Noteson 09-26-2021 Help Desk Consultant Authentication Interface Message Text EMERGENCY TRIAGE, TREAT AND TRANSPORT (ET3) DOCUMENTATION OF TELEHEALTH VISIT Date / Time: 09/26/2021 / 1515 Name: Corona Wharton : 1945 SSN: [id number] EMS Agency: [facility] [x] Verbal consent obtained [] [...] Completed by: Pelon Hawthorne MD Normal [facility] [employer] [facility] Vital Signs Date Time Vital Sign Value Performing Clinician Facility 07-25-2023 16:00-0400 Inhaled oxygen flow rate 2 L/min MD Idalmis Silva Work Phone: [facility] 07-25-2023 12:00-0400 Diastolic blood pressure 92 mm[Hg] MD Idalmis Silva Work Phone: [facility] 07-25-2023 12:00-0400 Heart rate 65 /min MD Idalmis Silva Work Phone: [facility] 07-25-2023 12:00-0400 Respiratory rate 18 /min MD Idalmis Silva Work Phone: [facility] 07-25-2023 12:00-0400 SaO2% (BldA) [Mass fraction] 96 % MD Idalmis Silva Work Phone: [facility] 07-25-2023 12:00-0400 Systolic blood pressure 152 mm[Hg] MD Idalmis Silva Work Phone: [facility] 07-25-2023 08:00-0400 Body temperature 98 [degF] MD Idalmis Silva Work Phone: [facility] 07-25-2023 04:45-0400 Body weight 148.9 kg MD Idalmis Silva Work Phone: [facility] 07-20-2023 14:08-0400 Body height 182.88 cm MD Idalmis Silva Work Phone: [facility] 07-19-2023 22:24-0400 Diastolic blood pressure 102 mm[Hg] MD Idalmis Silva Work Phone: [facility] 07-19-2023 22:24-0400 Heart rate 113 /min MD Idalmis Silva Work Phone: [facility] 07-19-2023 22:24-0400 Respiratory rate 22 /min MD Idalmis Silva Work Phone: [facility] 07-19-2023 22:24-0400 SaO2% (BldA) [Mass fraction] 90 % MD Idalmis Silva Work Phone: [facility] 07-19-2023 22:24-0400 Systolic blood pressure 152 mm[Hg] MD Idalmis Silva Work Phone: [facility] 07-19-2023 20:05-0400 Inhaled oxygen flow rate 2 L/min MD Idalmis Silva Work Phone: [facility] 07-19-2023 16:22-0400 Body height 182.88 cm MD Idalmis Silva Work Phone: [facility] 07-19-2023 16:22-0400 Body temperature 97.6 [degF] MD Idalmis Silva Work Phone: [facility] 07-19-2023 16:22-0400 Body weight 154 kg MD Idalmis Silva Work Phone: [facility] 07-11-2022 09:31-0400 Diastolic blood pressure 96 mm[Hg] Gerson Sukh [facility] 07-11-2022 09:31-0400 Heart rate 96 /min Gerson Sukh [facility] 07-11-2022 09:31-0400 Heart rate 98 /min Gerson Sukh [facility] 07-11-2022 09:31-0400 Mean blood pressure 112 mm[Hg] Gerson Sukh [facility] 07-11-2022 09:31-0400 Respiratory rate 9 /min Gerson Sukh [facility] 07-11-2022 09:31-0400 Respiratory rate 18 /min Gerson Sukh [facility] 07-11-2022 09:31-0400 SaO2% (BldA) [Mass fraction] 96 % Gerson Sukh [facility] 07-11-2022 09:31-0400 Systolic blood pressure 145 mm[Hg] Gerson Sukh [facility] 07-11-2022 09:00-0400 Heart rate 95 /min Gerson Sukh [facility] 07-11-2022 09:00-0400 Hourly Rounding Gerson Sukh [facility] 07-11-2022 09:00-0400 Respiratory rate 20 /min Gerson Uskh [facility] 07-11-2022 08:26-0400 Diastolic blood pressure 101 mm[Hg] Gerson Sukh [facility] 07-11-2022 08:26-0400 Heart rate 88 /min Gerson Luz [facility] 07-11-2022 08:26-0400 Respiratory rate 18 /min Gerson Luz [facility] 07-11-2022 08:26-0400 SaO2% (BldA) [Mass fraction] 96 % Gerson Luz [facility] 07-11-2022 08:26-0400 Systolic blood pressure 136 mm[Hg] Gerson Luz [facility] 07-11-2022 08:10-0400 Body temperature 98.06 [degF] Gerson Luz [facility] 07-11-2022 08:10-0400 Respiratory rate 18 /min Gerson Luz [facility] 07-11-2022 08:10-0400 SaO2% (BldA) [Mass fraction] 96 % Gerson Luz [facility] 09-26-2021 15:15-0400 Diastolic blood pressure 81 mm[Hg] [facility]-26-[facility] 15:15-0400 Heart rate 95 /min [facility] 09-26-2021 15:15-0400 Respiratory rate 16 /min [facility] 09-26-2021 15:15-0400 SaO2% (BldA) [Mass fraction] 93 % [facility] 09-26-2021 15:15-0400 Systolic blood pressure 158 mm[Hg] [facility] Encounters Encounter Date Encounter Type Care Provider Facility Start: 07-25-2023 Non-patient / Non-visit MD Idalmis Silva Work Phone: [facility] Work Phone: Start: 07-20-2023 Non-patient / Non-visit MD Idalmis Silva Work Phone: [facility] Work Phone: Start: 07-19-2023 End: 07-25-2023 Evaluation and management of inpatient Matthew Bean Facility:[facility] Start: 07-19-2023 End: 07-25-2023 Evaluation and management of inpatient MD Idalmis Silva Work Phone: [facility] Work Phone: Start: 07-11-2022 End: 07-11-2022 Emergency department patient visit Gerson Luz [facility] Start: 07-11-2022 End: 07-11-2022 Emergency department patient visit Gerson Luz [facility] Start: 06-20-2022 End: 06-20-[address] IDALMIS SILVA . Facility: Start: 05-05-2022 End: 05-06-[address] CODY AMBRIZ . Facility: Start: 04-18-2022 End: 05-02-2022 ambulatory UNKNOWN PROVIDER Facility[facility] Start: 09-26-2021 End: 09-28-2021 ambulatory UNKNOWN PROVIDER Facility:[facility] Start: 09-26-2021 End: 09-26-2021 ambulatory [facility] y Triage, Treat and Transport Start: 09-26-2021 End: 09-26-2021 Emergency department patient visit [facility] Emergency Triage, Treat and Transport Comment [...] Cystoscopy Gerson joel Start: 08-12-2014 Urodynamic studies Emelian Luz Back structure, excl uding neck (body structure) Gerson Luz Colonoscopy Gerson Sukh History of hernia repair Ben ethel Sukh Plan of Treatment Date Care Activity Detail Author Start: 07-25-2023 [facility] Start: 07-24-2023 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 [facility] Start: 07-24-2023 [facility] Start: 07-23-2023 [facility] Start: 07-22-2023 Blood culture for bacteria, including anaerobic screen Blood Culture [facility] Start: 07-22-2023 [facility] Start: 07-21-2023 [facility] Start: 07-20-2023 Referral to neurologist [facility] Start: 07-20-2023 End: 07-20-2023 [facility] Start: 07-19-2023 Hospital admission [facility] Start: 07-19-2023 Microbial culture of sputum [facility] Start: 07-19-2023 [facility] Start: 07-19-2023 Bacteria identified in Blood by Culture [facility] Start: 07-19-2023 Bacteria identified in Urine by Culture [facility] Start: 06-17-2021 COVID-19 Vaccine (4 - Booster for Moderna series) COVID-19 Vaccine (4 - Booster for Moderna series) [facility] Start: 03-14-2018 Pneumococcal vaccination Pneumococcal Vaccine(s) (65+ yrs) (2 - PPSV23 or PCV20) [facility] Start: 01-14-2009 Annual wellness visit Annual Wellness [...] Screening for malignant neoplasm of colon Colonoscopy [facility] Albumin/Globulin ratio [facility] Anion gap measurement [facility] Basophils [#/volume] in Blood by Automated count [facility] Basophils/100 leukoc ytes in Blood by Automated count [facility] Calculated LDL alona sterol level [facility] Cholesterol.total/Ch olestero l in HDL [Mass Ratio] in Serum or Plasma [facility] Eosinophils/100 leuk ocytes in Blood by Automated count [facility] Erythrocyte distribu tion width [Ratio] by Automated count [facility] Erythrocytes [#/volu me] in Blood [facility] Globulin [Mass/volum e] in Serum [facility] Glucose measurement estimated from glycated hemoglobin [facility] Hematocrit [Volume F raction] of Blood [facility] Hemoglobin [Mass/vol ume] in Blood [facility] Leukocytes [#/volume ] corrected for nucleated erythrocytes in Blood by Automated coun [facility] Leukocytes [#/volume ] in Blood [facility] Lymphocytes [#/volum e] in Blood by Automated count [facility] Lymphocytes/100 leuk ocytes in Blood by Automated count [facility] MCH [Entitic mass] b y Automated count [facility] MCHC [Mass/volume] b y Automated count [facility] MCV [Entitic volume] by Automated count [facility] Monocytes [#/volume] in Blood by Automated count [facility] Monocytes/100 leukoc ytes in Blood by Automated count [facility] Neutrophils [#/volum e] in Blood by Automated count [facility] Neutrophils/100 leuk ocytes in Blood by Automated count [facility] Nucleated erythrocyt es [Presence] in Blood by Automated count [facility] Patient Education Heart Failure, Adult (DC) [facility] Work Phone: Patient referral [facility] Work Phone: Platelet mean volume [Entitic volume] in Blood by Automated count [facility] Platelets [#/volume] in Blood [facility] VLDL cholesterol measurement [facility] Immunizations Immunization Date Immunization Notes Care Provider Gwen churchill 01-27-2020 Seasonal trivalent i nfluenza vaccine, adjuvanted, preservative free [facility] 03-14-2017 pneumococcal conjuga te vaccine, 13 valent [facility] 01-25-2017 influenza, high dose seasonal, preservative-free [facility] Payers Date Payer Category Payer Self-pay [id number] 2020 Unknown [id number] 2008 Medicare MEDICARE MEDICAR E PART A & B [id number] 2008-Present [address] [place] [address] Medicare [id number] 2008 Medicare [id number] 1945 Unknown [id number] 1945 Unknown [id number] 1945 Unknown [id number] 1945 Unknown [id number] 1945 Unknown [id number] 1945 Unknown [id number] Unknown Regular Insurance [id number] Unknown [id number] Social History Date Type Detail Facility Tobacco smoking status IAIS Tobacco smoking consumption unknown [facility] Start: 1945 Sex Assigned At [facility] file [facility] Start: 03-03-2019 Tobacco smoking status Never smoked tobacco (finding) [facility] Tobacco smoking status Never [facility] Sex Assigned At Male [facility] Start: 07-19-2023 End: 07-25-2023 Tobacco smoking status IAIS Ex-smoker (finding) [facility] Start: 1945 Sex Assigned At Male F [facility] Goals Date Patient Goal Desired Activity /State Functional Status Date Assessment Result Facility 07-25-2023 Functional status Patient is Pro gressing Toward Baseline [facility] Work Phone: 07-11-2022 Functional Status N/A [facility] Mental Status Date Assessment Result Facility 07-25-2023 Cognitive function Cognitive Sta tus Patient is Progressing Toward Baseline [facility] Work Phone: Clinical Notes 09-26-2021 to 07-25-2023 Note Date & Type Note Facility 07-25-2023 Consult note Note Date/Time July 25, 2023 9:16am [facility] [address] [place] [address] Gastroenterology Consult Note Signed Patient: Corona Wharton MR#: [id number] : 1945 Acct:[id number] Age/Sex: 78 / M Adm Date: 4 Loc: Room: [address] [place] [address] Type: ADM IN Attending Dr: Luigi Napoles [...] negative unless noted below or in HPI [facility] Medical History (Updated 07/25/23 @ [...] <Electronically signed by Brenda Zheng MD> 07/25/23 1799 [facility] Work Phone: 1(474) 271-172904-09-2024 Progress note Author uLigi Napoles [facility] July 24, 2023 2:46pm Note Date/Time July 24, 2023 11:4 9am [facility] [address] [place] [address] Hospitalist Progress Note Signed Patient: Corona Wharton MR#: [id number] : 1945 Acct:[id number] Age/Sex: 78 / M Adm Date: 4 Loc: Room: [address] [place] [address] Type: ADM IN Attending Dr: Luigi Napoles [...] consult with dysphagia, dysmotility as recommended by -therapy recs SNF- plan [facility] precert pending Hypomagnesia -replete, trend lab Chronic [...] signed by Luigi Napoles DO> 07/24/23 1446 [facility] Work Phone: 1(611) 809-399904-08-2024 Progress note Author Luigi Napoles [facility] July 23, 2023 2:31pm Note Date/Time July 23, 2023 10:2 9am [facility] [address] [place], [place] [address] Hospitalist Progress Note Signed Patient: Corona Wharton MR#: [id number] : 1945 Acct:[id number] Age/Sex: 78 / M Adm Date: 4 Loc: 4 Room: [address] [place] [address] Type: ADM IN Attending Dr: Luigi Napoles DO Copies to: ~ Date of Service: 07/23/2023 Subjective Subjective Narrative: Patient seen and examined. LLE with some erythema, this is my first time seeingthe patient- bedside nurse reports erythema improved from over weekend. Patientreports minimal discomfort at site. Complaints of regurgitation of foot - ST has seen the patient and he is on [facility] soft ground meats with nectar thickened liquids. [...] plan. - Luigi Napoles DO Documented By: Monicamarty Crocker APRN 12/07 1028 Signed By: <Electronically signed by VIPIN Crocker> 07/23/23 1252 <Electronically signed by Luigi Napoles DO> 07/23/23 1431 [facility] Work Phone: 1(247) 526-804604-07-2024 Progress note Author Luigi Napoles [facility] July 22, 2023 2:21pm Note Date/Time July 22, 2023 11:2 3am [facility] [address] [place] [address] Hospitalist Progress Note Signed Patient: Corona Wharton MR#: [id number] : 1945 Acct:[id number] Age/Sex: 78 / M Adm Date: 4 Loc: 4 Room: [address] [place] [address] Type: ADM IN Attending Dr: Luigi Napoles [...] TATIANNA Administration Latanoprost 1 drops 07/20/23 22:00 07/21/23 21:29 Latanoprost 0.005% Op Soln 50 Drops/2.5 [...] signed by Luigi Napoles DO> 07/22/23 1421 [facility] Work Phone: 1(333) 145-206704-07-2024 Progress note Author Matthew Bean [facility] July 22, 2023 11:17am Note Date/Time July 22, 2023 10:1 6am [facility] [address] [place] [address] Neurology Progress Note Signed Patient: Corona Wharton MR#: [id number] : 1945 Acct:[id number] Age/Sex: 78 / M Adm Date: 4 Loc: 4 Room: [address] [place] [address] Type: ADM IN Attending Dr: Luigi Napoles [...] Level of Supervision Constant Supervision Liquid Consistency [place]-Thick Liquids,Thin Water Between Meals Recommendation Solid Consistency [...] <Electronically signed by Matthew Bean DO> 07/22/23 6420 [facility] Work Phone: 1(266) 111-413204-06-2024 Progress note Author Luigi Napoles [facility] July 21, 2023 7:45pm Note Date/Time July 20, 2023 1:18 pm [facility] [address] [place] [address] Hospitalist Progress Note Signed Patient: Corona Wharton MR#: [id number] : 1945 Acct:[id number] Age/Sex: 78 / M Adm Date: 4 Loc: Room: [address] [place] [address] Type: ADM IN Attending Dr: Luigi Napoles [...] Herron> 07/20/23 183 <Electronically signed by Luigi Napoles DO> 07/21/231944 [facility] Work Phone: 1(914) 740-442004-06-2024 Progress note Author Sarah Herron [facility] July 21, 2023 1:59pm Note Date/Time July 21, 2023 11:2 7am [facility] [address] [place] [address] Hospitalist Progress Note Signed Patient: Corona Wharton MR#: [id number] : 1945 Acct:[id number] Age/Sex: 78 / M Adm Date: 4 Loc: Room: [address] [place] [address] Type: ADM IN Attending Dr: Luigi Napoles [...] 10:02 07/21/23 10:02 07/21/23 10:02 07/21/23 10:02 Narrative: CONST-morbidly obese, alert, resting comfortably [...] <Electronically signed by VIPIN Herron> 07/21/23 1359 [facility] Work Phone: 1(497) 441-203904-06-2024 Progress note Author Matthew Bean [facility] July 21, 2023 1:53pm Note Date/Time July 21, 2023 11:5 8am [facility] [address] [place], [place] [id number] Neurology Progress Note Signed Patient: Corona Wharton MR#: [id number] : 1945 Acct:[id number] Age/Sex: 78 / M Adm Date: 4 Loc: 4P Room: [address] [place] [address] Type: ADM IN Attending Dr: Luigi Napoles [...] Level of Supervision Constant Supervision Liquid Consistency [place]-Thick Liquids,Thin Water Between Meals Recommendation Solid Consistency [...] <Electronically signed by Matthew Bean DO> 07/21/23 2575 [facility] Work Phone: 1(919) 712-930204-05-2024 History and physical note Author Balbina Garzon [facility] July 20, 2023 8:37pm Note Date/Time July 20, 2023 4:38 am [facility] [address] [place] [address] Hospitalist H&P Signed Patient: Corona Wharton MR#: [id number] : 1945 Acct:[id number] Age/Sex: 78 / M Adm Date: 4 Loc: Room: [address] [place] [address] Type: ADM IN Attending Dr: Luigi Napoles DO Copies to: MD Balbina Padilla DO Shawn J Warner, DO~ HPI DATE OF EXAMINATION: 07/20/23 CHIEF COMPLAINT: [...] of Systems Unobtainable due to mental status [facility] Medical History Diabetes Hyperlipidemia Hypertension [...] % (Auto) 14.4 % (.) 07/19/23 16:31 [place] % (Auto) 6.0 % (.) 07/19/23 16:31 Eos % (Auto) 2.5 % (.) 07/19/23 16:31 Baso % (Auto) 0.3 % (.) 07/19/23 16:31 Nucleat RBC Rel Count 0.2 /100 WBC (0-0.5) 07/19/23 16:31 Neut # (Auto) 10.3 x10E3/uL (1.8-7.7) H 07/19/23 16:31 Lymph # (Auto) 1.9 x10E3/uL (1.00-4.8) 07/19/23 16:31 [place] # (Auto) 0.8 x10E3/uL (0.0-0.8) 07/19/23 16:31 [...] pH 6.5 (5.0-9.0) 07/19/23 19:30 Ur Specific [place] 1.015 (1.001-1.030) 07/19/23 19:30 Urine Protein 300 [...] <Electronically signed by Balbina Garzon DO> 07/20/232036 [facility] Work Phone: 1(477) 785-480904-05-2024 Consult note Author Matthew Bean [facility] July 20, 2023 2:51pm Note Date/Time July 20, 2023 2:38 pm [facility] [address] [place] [address] Neurology Consult Note Signed Patient: Corona Wharton MR#: [id number] : 1945 Acct:[id number] Age/Sex: 78 / M Adm Date: 4 Loc: 4 Room: [address] [place] [address] Type: ADM IN Attending Dr: Luigi Napoles DO Copies to: DO Idalmis Moore MD Shawn J Warner, ~ HPI Consult Date: 07/20/23 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 Documented By: Matthew Bean DO 07/20/23 1431 Signed By: <Electronically signed by Matthew Bean DO> 07/20/23 1451 [facility] Work Phone: 1(137) 339-641803-28-2023 Evaluation + Plan noteExtracted from: Title:ED Note Author:Gerson Luz DO Date: Accidental fall (W19.XXXA: U nspecified fall, initial encounter) Closed head injury (S09.90XA: Unspecified injury of head, initial encounter) Facial contusion (S00.83XA: Contusion of other part of head, initial encounter) Orders: CT Head or Brain w/o Contrast CT Maxillofacial w/o Contrast CT Spine Cervical w/o Contrast [facility]03-28-2023 Hospital Discharge instructions Patient Education 07/11/2022 09:33:48 [...] If you or a loved one falls [facility], it is important to tell hospital [...] balance. Talk with a physical therapist or physical trainer if recommended by your health care [...] 03/30/2001 Document Revised: 03/15/2018 Document Reviewed: 11/14/2017 [employer] Patient Education 2020 [employer] 07/11/2022 09:33:48 Head Injury, Adult Head [...] Ask your health care provider for a oenx-nt-wobn plan for gradually returning to activities. Ask [...] your friends, family, a trusted colleague, and ironworker apprentice about your injury, symptoms, and restrictions. Have them watch for any new or worsening problems. General instructions Take vztk-pye-kptoptc and prescription medicines only as told by [...] 04/02/2006 Document Revised: 04/30/2019 Document Reviewed: 04/25/2019 [employer] Patient Education 2020 [employer] 07/11/2022 09:33:48 Facial or Scalp Contusion [...] applying cold compresses to the injured area. Ybzh-brm-ayslbbm medicines may also be recommended for pain control. Follow these instructions at home: Take wfjh-ejp-jrgbawq and prescription medicines only as told by [...] 05/10/2005 Document Revised: 03/15/2018 Document Reviewed: 02/20/2017 [employer] Patient Education [employer] Follow Up Care 07/11/2022 08:10:05 With:Idalmis Silva Address: [address] [place] [address] Business (1) When:07/14/2022 09:33:22 Comments:Call the office [...] sleep, or any new or worsening symptoms. [facility]06-13-2022 History of Present illness Narrative* Pelon Hawthorne MD - 09/26/2021 3:30 PM EDT Images from the original note were not included. 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 acute Hypoxia acute Leukocytosis acute UTI (urinary tract infection) acute [facility] Work Phone: Hospital course Narrative No data available for this section [facility] No data available for this section [facility] Summary Purpose Family History No Family History [...] and content) DATE CREATED AUTHOR 05/03/2022 [employer] DATE CREATED AUTHOR AUTHOR'S ORGANIZ ATION 06/22/2022 [facility] DATE CREATED AUTHOR AUTHOR'S ORGANIZ ATION 08/09/2022 [facility] DATE CREATED AUTHOR AUTHOR'S ORGANIZ ATION 08/03/2023 [facility] Patient Care team informatio n [...] Team Status: Active Member Role Status Dates Iadlmis Silva MD Primary Care Provider Active Start: [...] BE BASED ON THE PRIMARY CLINICAL RECORDS. [facility]. provides no warranty or guarantee of the accuracy or completeness of information in this document.
[2023-08-08 07:55] LABS: Hematocrit 45.9 % (42.0-54.0); Hemoglobin 12.7 g/dL (14.0-18.0); Mean Corpuscular HGB Conc 27.7 g/dL (29.9-35.2); Mean Corpuscular Hemoglobin 25.6 pg (25.9-34.0); Mean Corpuscular Volume 92.5 fL (80.0-94.0); Mean Platelet Volume 11.5 fL (9.5-13.5); Platelet Count 241 10^3/uL (150-450); Red Blood Count 4.96 10^6/uL (4.70-6.10); Red Cell Distribution Width 15.6 % (11.0-15.0); White Blood Count 17.7 10^3/uL (4.0-11.0)
[2023-08-08 09:44] LABS: Lymphocytes Absolute Manual 1.23 10^3/uL (1.20-3.80); Monocytes Absolute Manual 1.23 10^3/uL (0.30-0.80); Segmented Neut Absolute Manual 15.22 10^3/uL (1.4-6.5)
== END 2023-08-08 01:27 | disposition home or self-care (01) ==
LOC: LAB 01:26
PROVIDERS: PCP Family Medicine; Visit Provider Family Medicine
DX: R06.2 Wheezing (principal); R05.9 Cough, unspecified
CPT/HCPCS: 36415; 85007; 85027

== ENCOUNTER 2023-08-15 00:45 | Outpatient (REF) | payer OTHER, SELFPAY ==
--- OUTSIDE RECORDS SUMMARY | 2023-08-15 00:51 | XMS_ITS | CCD ---
Author Organization [facility] Care Team Providers Care Hydrodynamics Professor Name Role Phone Unavailable Primary Care Provider [...] Care Unavailable Idalmis Silva Primary Care Physician [phone] Gerson Luz Attending Unavailable MD Idalmis Silva Primary Care Provider [phone] DO Rubén Cardoso Emergency Provider DO Balbina Garzon Admit Provider [phone] DO Balbina Garzon Attending Provider [phone] DO Luigi Napoles Attending Provider DO Matthew Bean Other Provider MD Brenda Zheng Other Provider MEG PECK Attending Unavailable Matthew Bean Consulting Unavailable Idalmis Silva Primary Care Unavailable Balbina Garzon Admitting Unavailable Luigi Napoles Attending Unavailable Brenda Zheng Consulting Unavailable Allergies Allergy Classification Reported Allergen(s) Allergy Type Date of Onset Reaction(s) Facility (1 source) Allopurinol Drug Allergy [facility] Repository (1 source) No Known Medication Allergies; Translations: [No Known Medication Allergies] Propensity to adverse reactions (disorder) [facility] Repository (3 sources) Azithromycin; Translations: [azithromycin] Drug Allergy 4 [facility] (3 sources) cefTRIAXone; Translations: [ceftriaxone] Drug Allergy 4 [facility] Medications Current Medications Medication Drug [...] July 20, 2023 12:00am polyethylene glycol [id number] [id number] mg powder for oral solution (1 source) [...] every four to six hours Hydrocodone-Acetam inophen ([place]) 5-325 mg tablet Discontinued 1 TAB PO EVERY 4-6 HOURS 10 3 January 05, 2019 February 25, 2021 11:15am [...] Onset: 05-09-2022 Other aftercare (1 source) Other group home (current) drug therapy; Translations: [OTH TONGUE BINDER CURRENT DRUG THERAPY] Onset: 06-21-2022 Episodic Other aftercare (1 source) alf (current) use of insulin; Translations: [PENITENTIARY CURRENT USE OF INSULIN] Onset: 06-21-2022 Episodic [...] [Moles/Vol] 10.4 mmol/L Normal 6.0-15.0 [facility] Comment on above: Performed By: #### C UBLD, LACTIC #### [address] Calcium [Mass/Vol] 9.0 mg/dL Normal 8.6-10.3 [facility] Comment on above: Performed By: #### C UBLD, LACTIC #### [address] Chloride [Moles/Vol] 98 mmol/L Normal 98-107 [facility] Comment on above: Performed By: #### C UBLD, LACTIC #### [address] CO2 [Moles/Vol] 33.7 mmol/L High 21.0-31.0 [facility] Comment on above: Performed By: #### C UBLD, LACTIC #### [place] [address] [place] Creatinine [Mass/Vol] 1.20 mg/dL Normal 0.70-1.30 [facility] Comment on above: Performed By: #### C UBLD, LACTIC #### [place] [address] [place] Creatinine Clr Calc Pharmacy 77.38 Normal [facility] Comment on above: Result Comment: PERF ORMED BY: [place] [address] PATHOLOGIST SEWAGE DISPOSAL WORKER FREDA ALCAZAR M.D. Performed By: #### C UBLD, LACTIC #### [place] [address] [place] GFR/1.73 sq M.predicted MDRD (S/P/Bld) [Vol rate/Area] mL/min/{1.73_m2} Normal [facility] Comment on above: Performed By: #### C UBLD, LACTIC #### [facility] [address] Glucose [Mass/Vol] 141 mg/dL High 70-100 [facility] Comment on above: Result Comment: [facility] Glucose Reference Range is dependent on time and content of last meal. Glucose of more than 200 mg/dL in a nonstressed, ambulatory subject supports the diagnosis of Diabetes Mellitus. ADA recommended reference range Performed By: #### C UBLD, LACTIC #### [facility] [address] Potassium [Moles/Vol] 4.1 mmol/L Normal 3.5-5.1 [facility] Comment on above: Performed By: #### C UBLD, LACTIC #### [facility] [address] [place] [address] [place] Sodium [Moles/Vol] 138 mmol/L Normal 136-145 [facility] Comment on above: Performed By: #### C UBLD, LACTIC #### [facility] [address] Urea nitrogen [Mass/Vol] 12 mg/dL Normal 7-25 [facility] Comment on above: Performed By: #### C UBLD, LACTIC #### [facility] [address] [place] [address] [place] Basophils Auto (Bld) [#/Vol] Ordered By: Monica Crocker on 07-25-2023 Basophils (Bld) [#/Vol] 0.1 10*3/uL 0.0-0.2 [facility] Basophils/100 WBC Auto (Bld) Ordered By: Monica Crocker on 07-25-2023 Basophils/100 WBC (Bld) 1.1 % . [facility] Calcium [Mass/volume] in Ser um or PlasmaOrdered By: Monica Crocker on 07-25-2023 Calcium [Mass/Vol] 9.0 mg/dL 8.6-10.3 [facility] Carbon dioxide, total [Moles /volume] in Serum or PlasmaOrdered By: Monica Crocker on 07-25-2023 CO2 [Moles/Vol] 33.7 mmol/L 21.0-31.0 [facility] Chloride [Moles/volume] in S erika or PlasmaOrdered By: Monica Crocker on 07-25-2023 Chloride [Moles/Vol] 98 mmol/L 98-107 [facility] Complete Blood Count Auto Di ffon 07-25-2023 Basophils (Bld) [#/Vol] 0.1 10*3/uL Normal 0.0-0.2 [facility] Comment on above: Result Comment: PERF ORMED BY: [place] [address] PATHOLOGIST SEWAGE DISPOSAL WORKER FREDA ALCAZAR M.D. Performed By: #### C UBLD, LACTIC #### [address] Basophils/100 WBC (Bld) 1.1 % Normal . [facility] Comment on above: Performed By: #### C UBLD, LACTIC #### [place] [address] [place] Eosinophils (Bld) [#/Vol] 0.4 10*3/uL Normal 0.0-0.45 [facility] Comment on above: Performed By: #### C UBLD, LACTIC #### [address] Eosinophils/100 WBC (Bld) 3.1 % Normal . [facility] Comment on above: Performed By: #### C UBLD, LACTIC #### [address] Erythrocyte distribution width (RBC) [Ratio] 15.6 % High 12.0-14.8 [facility] Comment on above: Performed By: #### C UBLD, LACTIC #### [address] Hematocrit (Bld) [Volume fraction] 41.2 % Normal 38.8-50.0 [facility] Comment on above: Performed By: #### C UBLD, LACTIC #### [facility] [address] Hemoglobin (Bld) [Mass/Vol] 12.8 g/dL Low 13.0-17.0 [facility] Comment on above: Performed By: #### C UBLD, LACTIC #### [address] Lymphocytes (Bld) [#/Vol] 1.6 10*3/uL Normal 1.00-4.8 [facility] Comment on above: Performed By: #### C UBLD, LACTIC #### [address] Lymphocytes/100 WBC (Bld) 12.8 % Normal . [facility] Comment on above: Performed By: #### C UBLD, LACTIC #### [address] MCH (RBC) [Entitic mass] 26.1 pg Low 27.5-35.2 [facility] Comment on above: Performed By: #### C UBLD, LACTIC #### [address] MCV (RBC) [Entitic vol] 84.3 fL Normal 83.5-101 [facility] Comment on above: Performed By: #### C UBLD, LACTIC #### [address] Mean Corpuscular HGB Conc 30.9 g/dL Low 32.5-35.6 [facility] Comment on above: Performed By: #### C UBLD, LACTIC #### [address] Monocytes (Bld) [#/Vol] 0.9 10*3/uL High 0.0-0.8 [facility] Comment on above: Performed By: #### C UBLD, LACTIC #### [address] Monocytes/100 WBC (Bld) 7.0 % Normal . [facility] Comment on above: Performed By: #### C UBLD, LACTIC #### [facility] [address] [place] [address] [place] Neutrophils (Bld) [#/Vol] 9.5 10*3/uL High 1.8-7.7 [facility] Comment on above: Performed By: #### C UBLD, LACTIC #### [facility] [address] [place] [address] [place] Neutrophils/100 WBC (Bld) 76.0 % Normal . [facility] Comment on above: Performed By: #### C UBLD, LACTIC #### [facility] [address] [place] [address] [place] NRBC% 0.1 /100{WBC} Normal 0-0.5 [facility] Comment on above: Performed By: #### C UBLD, LACTIC #### [facility] [address] [place] [address] [place] Platelet mean volume (Bld) [Entitic vol] 7.8 fL Normal 6.6-10.1 [facility] Comment on above: Performed By: #### C UBLD, LACTIC #### [facility] [address] [place] [address] [place] Platelets (Bld) [#/Vol] 348 10*3/uL Normal 150-450 [facility] Comment on above: Performed By: #### C UBLD, LACTIC #### [facility] [address] [place] [address] [place] RBC (Bld) [#/Vol] 4.89 10*6/uL Normal 3.90-5.60 [facility] Comment on above: Performed By: #### C UBLD, LACTIC #### [facility] [address] [place] [address] [place] WBC (Bld) [#/Vol] 12.4 10*3/uL High 4.1-10.5 [facility] Comment on above: Performed By: #### C UBLD, LACTIC #### [facility] [address] [place] [address] [place] Creatinine [Mass/volume] in Serum or PlasmaOrdered By: Monica Crocker on 07-25-2023 Creatinine [Mass/Vol] 1.20 mg/dL 0.70-1.30 [facility] Eosinophils Auto (Bld) [#/Vo l]Ordered By: Monica Crocker on 07-25-2023 Eosinophils (Bld) [#/Vol] 0.4 10*3/uL 0.0-0.45 [facility] Eosinophils/100 WBC Auto (Bl d)Ordered By: Monica Crocker on 07-25-2023 Eosinophils/100 WBC (Bld) 3.1 % . [facility] Erythrocyte distribution wid th Auto (RBC) [Ratio]Ordered By: Monica Cordero on 07-25-2023 Erythrocyte distribution width (RBC) [Ratio] 15.6 % 12.0-14.8 [facility] Glucose Glucometer (BldC) [M ass/Vol]Ordered By: Luigi Napoles on 07-25-2023 Glucose [Mass/Vol] 172 mg/dL [facility] Comment on above: Random Glucose Refer ence Range is dependent on time and content of last meal. Glucose of more than 200 mg/dL in a nonstressed, ambulatory subject supports the diagnosis of Diabetes Mellitus. Glucose Poct Glucometerson 0 07-25-2023 Glucose [Mass/Vol] 172 mg/dL Normal [facility] Comment on above: Result Comment: [place] Glucose Reference Range is dependent on time and content of last meal. Glucose of more than 200 mg/dL in a nonstressed, ambulatory subject supports the diagnosis of Diabetes Mellitus. PERFORMED BY: [facility] [address] [place] [address] PATHOLOGIST SEWAGE DISPOSAL WORKER FREDA ALCAZAR M.D. Performed By: #### G LULS #### Point of Care testing , Glucose [Mass/Vol] 177 mg/dL Normal [facility] Comment on above: Result Comment: [facility] Glucose Reference Range is dependent on time and content of last meal. Glucose of more than 200 mg/dL in a nonstressed, ambulatory subject supports the diagnosis of Diabetes Mellitus. PERFORMED BY: [facility] [address] [place] [address] PATHOLOGIST SEWAGE DISPOSAL WORKER FREDA ALCAZAR M.D. Performed By: #### C UBLD, LACTIC #### [address] Glucose [Mass/volume] in Ser um or PlasmaOrdered By: Monica Crocker on 07-25-2023 Glucose [Mass/Vol] 141 mg/dL 70-100 [facility] Comment on above: ADA recommended refe rence rangeRandom Glucose Reference Range is dependent on time and content of last meal. Glucose of more than 200 mg/dL in a nonstressed, ambulatory subject supports the diagnosis of Diabetes Mellitus. Hematocrit Auto (Bld) [Volum e fraction]Ordered By: Monica Crocker on 07-25-2023 Hematocrit (Bld) [Volume fraction] 41.2 % 38.8-50.0 [facility] Hemoglobin [Mass/volume] in BloodOrdered By: Monica Crocker on 07-25-2023 Hemoglobin (Bld) [Mass/Vol] 12.8 g/dL 13.0-17.0 [facility] Leukocytes [#/volume] correc marina for nucleated erythrocytes in Blood by Automated counOrdered By: Monica Crocker on 07-25-2023 WBC corrected for nucl RBC Auto (Bld) [#/Vol] 12.4 10*3/uL 4.1-10.5 [facility] Lymphocytes Auto (Bld) [#/Vo l]Ordered By: Monica Crocker on 07-25-2023 Lymphocytes (Bld) [#/Vol] 1.6 10*3/uL 1.00-4.8 [facility] Lymphocytes/100 WBC Auto (Bl d)Ordered By: Monica Crocker on 07-25-2023 Lymphocytes/100 WBC (Bld) 12.8 % . [facility] MCH Auto (RBC) [Entitic mass ]Ordered By: Monica Crocker on 07-25-2023 MCH (RBC) [Entitic mass] 26.1 pg 27.5-35.2 [facility] MCHC Auto (RBC) [Mass/Vol]Or dered By: Monica Crocker on 07-25-2023 MCHC (RBC) [Mass/Vol] 30.9 g/dL 32.5-35.6 [facility] MCV Auto (RBC) [Entitic vol] Ordered By: Monica Crocker on 07-25-2023 MCV (RBC) [Entitic vol] 84.3 fL 83.5-101 [facility] Monocytes Auto (Bld) [#/Vol] Ordered By: Monica Crocker on 07-25-2023 Monocytes (Bld) [#/Vol] 0.9 10*3/uL 0.0-0.8 [facility] Monocytes/100 WBC Auto (Bld) Ordered By: Monica Crocker on 07-25-2023 Monocytes/100 WBC (Bld) 7.0 % . [facility] Neutrophils Auto (Bld) [#/Vo l]Ordered By: Monica Crocker on 07-25-2023 Neutrophils (Bld) [#/Vol] 9.5 10*3/uL 1.8-7.7 [facility] Neutrophils/100 WBC Auto (Bl d)Ordered By: Monica Crocker on 07-25-2023 Neutrophils/100 WBC (Bld) 76.0 % . [facility] No Panel InformationOrdered By: Monica Crocker on 07-25-2023 Estimated GFR (CKD-EPI) > 60.0 mL/Min [facility] Creatinine Clearance (Chem 77.38 [facility] Nucleated erythrocytes [Pres ence] in Blood by Automated countOrdered By: Monica Crocker on 07-25-2023 Nucleated RBC Auto Ql (Bld) 0.1 /100{WBC} 0-0.5 [facility] Platelet mean volume Auto (B ld) [Entitic vol]Ordered By: Monica Crocker on 07-25-2023 Platelet mean volume (Bld) [Entitic vol] 7.8 fL 6.6-10.1 [facility] Platelets Auto (Bld) [#/Vol] Ordered By: Monica Crocker on 07-25-2023 Platelets (Bld) [#/Vol] 348 10*3/uL 150-450 [facility] Potassium [Moles/volume] in Serum or PlasmaOrdered By: Monica Crocker on 07-25-2023 Potassium [Moles/Vol] 4.1 mmol/L 3.5-5.1 [facility] RBC Auto (Bld) [#/Vol]Ordere d By: Monica Crocker on 07-25-2023 RBC (Bld) [#/Vol] 4.89 10*6/uL 3.90-5.60 [facility] Serum or plasma anion gap de terminationOrdered By: Monica Crocker on 07-25-2023 Anion gap [Moles/Vol] 10.4 mmol/L 6.0-15.0 [facility] Sodium [Moles/volume] in Ser um or PlasmaOrdered By: Monica Crocker on 07-25-2023 Sodium [Moles/Vol] 138 mmol/L 136-145 [facility] Urea nitrogen [Mass/volume] in Serum or PlasmaOrdered By: Monica Crocker on 07-25-2023 Urea nitrogen [Mass/Vol] 12 mg/dL 7-25 [facility] WBC Auto (Bld) [#/Vol]Ordere d By: Monica Crocker on 07-25-2023 WBC (Bld) [#/Vol] 12.4 10*3/uL 4.1-10.5 [facility] Anisocytosis LM Ql (Bld)Orde red By: Balbina Garzon on 07-24-2023 Anisocytosis Ql (Bld) [facility] Basic Metabolic Panelon Anion gap [Moles/Vol] 9.3 mmol/L Normal 6.0-15.0 [facility] Comment on above: Performed By: #### C UBLD, LACTIC #### [address] Calcium [Mass/Vol] 8.8 mg/dL Normal 8.6-10.3 [facility] Comment on above: Performed By: #### C UBLD, LACTIC #### [address] Chloride [Moles/Vol] 98 mmol/L Normal 98-107 [facility] Comment on above: Performed By: #### C UBLD, LACTIC #### [address] CO2 [Moles/Vol] 33.8 mmol/L High 21.0-31.0 [facility] Comment on above: Performed By: #### C UBLD, LACTIC #### [address] Creatinine [Mass/Vol] 1.22 mg/dL Normal 0.70-1.30 [facility] Comment on above: Performed By: #### C UBLD, LACTIC #### [address] Creatinine Clr Calc Pharmacy 76.25 Normal [facility] Comment on above: Performed By: #### C UBLD, LACTIC #### [place] [address] [place] GFR/1.73 sq M.predicted MDRD (S/P/Bld) [Vol rate/Area] mL/min/{1.73_m2} Normal [facility] Comment on above: Performed By: #### C UBLD, LACTIC #### [address] Glucose [Mass/Vol] 152 mg/dL High 70-100 [facility] Comment on above: Result Comment: [place] Glucose Reference Range is dependent on time and content of last meal. Glucose of more than 200 mg/dL in a nonstressed, ambulatory subject supports the diagnosis of Diabetes Mellitus. ADA recommended reference range Performed By: #### C UBLD, LACTIC #### [address] Potassium [Moles/Vol] 4.1 mmol/L Normal 3.5-5.1 [facility] Comment on above: Performed By: #### C UBLD, LACTIC #### [place] [address] [place] Sodium [Moles/Vol] 137 mmol/L Normal 136-145 [facility] Comment on above: Performed By: #### C UBLD, LACTIC #### [address] Urea nitrogen [Mass/Vol] 13 mg/dL Normal 7-25 [facility] Comment on above: Performed By: #### C UBLD, LACTIC #### [address] Glucose Poct Glucometerson 0 07-24-2023 Glucose [Mass/Vol] 186 mg/dL Normal [facility] Comment on above: Result Comment: [facility] Glucose Reference Range is dependent on time and content of last meal. Glucose of more than 200 mg/dL in a nonstressed, ambulatory subject supports the diagnosis of Diabetes Mellitus. PERFORMED BY: [place] [address] PATHOLOGIST SEWAGE DISPOSAL WORKER FREDA ALCAZAR M.D. Performed By: #### C UU, ADDONUAPLUS #### [address] Glucose [Mass/Vol] 153 mg/dL Normal [facility] Comment on above: Result Comment: [facility] Glucose Reference Range is dependent on time and content of last meal. Glucose of more than 200 mg/dL in a nonstressed, ambulatory subject supports the diagnosis of Diabetes Mellitus. PERFORMED BY: [place] [address] PATHOLOGIST SEWAGE DISPOSAL WORKER FREDA ALCAZAR M.D. Performed By: #### C UBLD, LACTIC #### [address] Commemt1 Glu2: Cleaned Meter Normal [facility] Comment on above: Result Comment: PERF ORMED BY: [place] [address] PATHOLOGIST SEWAGE DISPOSAL WORKER FREDA ALCAZAR M.D. Performed By: #### G LULS #### Point of Care testing , Glucose [Mass/Vol] 214 mg/dL Normal [facility] Comment on above: Result Comment: [place] [facility] Glucose Reference Range is dependent on time and content of last meal. Glucose of more than 200 mg/dL in a nonstressed, ambulatory subject supports the diagnosis of Diabetes Mellitus. Performed By: #### G LULS #### Point of Care testing , Glucose [Mass/Vol] 155 mg/dL Normal [facility] Comment on above: Result Comment: [place] [facility] Glucose Reference Range is dependent on time and content of last meal. Glucose of more than 200 mg/dL in a nonstressed, ambulatory subject supports the diagnosis of Diabetes Mellitus. PERFORMED BY: [place] [address] PATHOLOGIST SEWAGE DISPOSAL WORKER FREDA ALCAZAR M.D. Performed By: #### G LUCHECO #### Point of Care testing , Hypochromia LM Ql (Bld)Order ed By: Balbina Garzon on 07-24-2023 Hypochromia Ql (Bld) Slight [facility] Magnesiumon 07-24-2023 Magnesium [Mass/Vol] 2.0 mg/dL Normal 1.9-2.7 [facility] Comment on above: Result Comment: PERF ORMED BY: [place] [address] PATHOLOGIST SEWAGE DISPOSAL WORKER FREDA ALCAZAR M.D. Performed By: #### C UBLD, LACTIC #### [address] Magnesium [Mass/volume] in S erika or PlasmaOrdered By: Monica Crocker on 07-24-2023 Magnesium [Mass/Vol] 2.0 mg/dL 1.9-2.7 [facility] No Panel InformationOrdered By: Luigi Napoles on 07-24-2023 Bedside Glucose Comment Glu2: cleaned meter [facility] Platelet adequacy [Presence] in Blood by Light microscopyOrdered By: Balbina Garzon on 07-24-2023 Platelets LM Ql (Bld) Normal Normal [facility] Platelet morphology finding [Identifier] in BloodOrdered By: Balbina Garzon on 07-24-2023 Platelet morphology finding Nom (Bld) Normal Normal [facility] Polychromasia [Presence] in Blood by Light microscopyOrdered By: Balbina Garzon on 07-24-2023 Polychromasia LM Ql (Bld) Slight [facility] RBC morphologyOrdered By: Conchis Garzon on 07-24-2023 RBC morphology finding Nom (Bld) N/A [facility] Scan and CBCon 07-24-2023 Anisocytosis Ql (Bld) Slight Normal [facility] Comment on above: Performed By: #### C UBLD, LACTIC #### [address] Basophils (Bld) [#/Vol] 0.1 10*3/uL Normal 0.0-0.2 [facility] Comment on above: Performed By: #### C UBLD, LACTIC #### [address] Basophils/100 WBC (Bld) 1.0 % Normal . [facility] Comment on above: Performed By: #### C UBLD, LACTIC #### [place] [address] [place] Eosinophils (Bld) [#/Vol] 0.4 10*3/uL Normal 0.0-0.45 [facility] Comment on above: Performed By: #### C UBLD, LACTIC #### [address] Eosinophils/100 WBC (Bld) 3.6 % Normal . [facility] Comment on above: Performed By: #### C UBLD, LACTIC #### [address] Erythrocyte distribution width (RBC) [Ratio] 15.5 % High 12.0-14.8 [facility] Comment on above: Performed By: #### C UBLD, LACTIC #### [address] Hematocrit (Bld) [Volume fraction] 39.7 % Normal 38.8-50.0 [facility] Comment on above: Performed By: #### C UBLD, LACTIC #### [address] Hemoglobin (Bld) [Mass/Vol] 12.1 g/dL Low 13.0-17.0 [facility] Comment on above: Performed By: #### C UBLD, LACTIC #### [address] Hypochromasia Slight Normal [facility] Comment on above: Performed By: #### C UBLD, LACTIC #### [address] Lymphocytes (Bld) [#/Vol] 1.4 10*3/uL Normal 1.00-4.8 [facility] Comment on above: Performed By: #### C UBLD, LACTIC #### [address] Lymphocytes/100 WBC (Bld) 12.5 % Normal . [facility] Comment on above: Performed By: #### C UBLD, LACTIC #### [address] MCH (RBC) [Entitic mass] 25.8 pg Low 27.5-35.2 [facility] Comment on above: Performed By: #### C UBLD, LACTIC #### [address] MCV (RBC) [Entitic vol] 85.1 fL Normal 83.5-101 [facility] Comment on above: Performed By: #### C UBLD, LACTIC #### [address] Mean Corpuscular HGB Conc 30.4 g/dL Low 32.5-35.6 [facility] Comment on above: Performed By: #### C UBLD, LACTIC #### [address] Monocytes (Bld) [#/Vol] 1.0 10*3/uL High 0.0-0.8 [facility] Comment on above: Performed By: #### C UBLD, LACTIC #### [address] [place] [address] [place] Monocytes/100 WBC (Bld) 8.3 % Normal . [facility] Comment on above: Performed By: #### C UBLD, LACTIC #### [address] [address] Neutrophils (Bld) [#/Vol] 8.6 10*3/uL High 1.8-7.7 [facility] Comment on above: Performed By: #### C UBLD, LACTIC #### [address] Neutrophils/100 WBC (Bld) 74.6 % Normal . [facility] Comment on above: Performed By: #### C UBLD, LACTIC #### [address] NRBC% 0.0 /100{WBC} Normal 0-0.5 [facility] Comment on above: Performed By: #### C UBLD, LACTIC #### [address] Platelet Estimate Normal Normal Normal [facility] Comment on above: Performed By: #### C UBLD, LACTIC #### [address] Platelet mean volume (Bld) [Entitic vol] 7.6 fL Normal 6.6-10.1 [facility] Comment on above: Performed By: #### C UBLD, LACTIC #### [address] Platelet Morphology Normal Normal Normal [facility] Comment on above: Result Comment: PERF ORMED BY: [place] [address] PATHOLOGIST [employer]AGE [employer]POSAL WORKER FREDA ALCAZAR M.D. Performed By: #### C UBLD, LACTIC #### [place] [address] [place] Platelets (Bld) [#/Vol] 325 10*3/uL Normal 150-450 [facility] Comment on above: Performed By: #### C UBLD, LACTIC #### [address] Polychromasia Slight Normal [facility] Comment on above: Performed By: #### C UBLD, LACTIC #### [address] RBC (Bld) [#/Vol] 4.67 10*6/uL Normal 3.90-5.60 [facility] Comment on above: Performed By: #### C UBLD, LACTIC #### [address] WBC (Bld) [#/Vol] 11.5 10*3/uL High 4.1-10.5 [facility] Comment on above: Performed By: #### C UBLD, LACTIC #### [address] Serum or plasma trough vanco mycin levelOrdered By: Sarah Herron on 07-24-2023 Vancomycin trough [Mass/Vol] 17.0 ug/mL 10.0-20.0 [facility] Comment on above: Last dose: - Vancomycin [Mass/volume] in Serum or Plasma --peakOrdered By: Sarah Herron on 07-24-2023 Vancomycin peak [Mass/Vol] 23.2 ug/mL 20.0-40.0 [facility] Comment on above: Last dose: - Vancomycin,Peakon 07-24-2023 Vancomycin,Peak 23.2 ug/mL Normal 20.0-40.0 [facility] Comment on above: Order Comment: Comme nt ?DRAW 1 HOUR AFTER INFUSION COMPLETES Date of last dose?: 20230722 Time of last dose?: 1300 Result Comment: Last dose: - PERFORMED BY: [place] [address] PATHOLOGIST [employer]AGE [employer]POS[employer] WORKER FREDA ALCAZAR M.D. Performed By: #### G LUCHECO #### Point of Care testing , Vancomycin,Troughon 07-24-19 24 Vancomycin,Trough 17.0 ug/mL Normal 10.0-20.0 [facility] Comment on above: Order Comment: Time of next dose? 0100 Date of last dose?: 20230722 Time of last dose?: 1300 Result Comment: Last dose: - PERFORMED BY: [place] [address] PATHOLOGIST [employer]AGE DISPOSAL WORKER FREDA ALCAZAR M.D. Performed By: #### V ANCT #### [place] [id number] [facility] XR chest 1V portableon 07-23 XR chest 1V portable [facility] [place] [address] [place] [address] XRay Report Signed Patient: Corona Wharton MR#: [id number] 1 : 1945 Acct:[id number] Age/Sex: 78 / M ADM Date: 07/19/23 Loc: Room: [address] [place] [address] Type: ADM IN Attending Dr: Luigi Napoles [...] RECOMMENDED.. Impression dictated by: Kuldeep Yost Jr., DFaustoOFausto07/24/2023 8:33 AM Dictation Location: [place] [address] Transcribed By: [facility] 07/24/23832 Dictated By: Kuldeep Yost Jr, DO 07/24/23831 Signed By: 07/24/23832 Normal [facility] Basic Metabolic Panelon Anion gap [Moles/Vol] 9.1 mmol/L Normal 6.0-15.0 [facility] Comment on above: Performed By: #### G LULS #### Point of Care testing , Calcium [Mass/Vol] 8.8 mg/dL Normal 8.6-10.3 [facility] Comment on above: Performed By: #### G LULS #### Point of Care testing , Chloride [Moles/Vol] 98 mmol/L Normal 98-107 [facility] Comment on above: Performed By: #### G LULS #### Point of Care testing , CO2 [Moles/Vol] 33.0 mmol/L High 21.0-31.0 [facility] Comment on above: Performed By: #### G LULS #### Point of Care testing , Creatinine [Mass/Vol] 1.21 mg/dL Normal 0.70-1.30 [facility] Comment on above: Performed By: #### G LULS #### Point of Care testing , Creatinine Clr Calc Pharmacy 76.77 Normal [facility] Comment on above: Result Comment: PERF ORMED BY: [address] [address] PATHOLOGIST [employer]POSAL WORKER FREDA ALCAZAR M.D. Performed By: #### G LULS #### Point of Care testing , GFR/1.73 sq M.predicted MDRD (S/P/Bld) [Vol rate/Area] mL/min/{1.73_m2} Normal [facility] Comment on above: Performed By: #### G LULS #### Point of Care testing , Glucose [Mass/Vol] 164 mg/dL High 70-100 [facility] Comment on above: Result Comment: [place] Glucose Reference Range is dependent on time and content of last meal. Glucose of more than 200 mg/dL in a nonstressed, ambulatory subject supports the diagnosis of Diabetes Mellitus. ADA recommended reference range Performed By: #### G LULS #### Point of Care testing , Potassium [Moles/Vol] 4.1 mmol/L Normal 3.5-5.1 [facility] Comment on above: Performed By: #### G LULS #### Point of Care testing , Sodium [Moles/Vol] 136 mmol/L Normal 136-145 [facility] Comment on above: Performed By: #### G LULS #### Point of Care testing , Urea nitrogen [Mass/Vol] 14 mg/dL Normal 7-25 [facility] Comment on above: Performed By: #### G LULS #### Point of Care testing , Complete Blood Count Auto Di ffon 07-23-2023 Basophils (Bld) [#/Vol] 0.1 10*3/uL Normal 0.0-0.2 [facility] Comment on above: Result Comment: PERF ORMED BY: [facility] [place] [address] PATHOLOGIST [employer]POSAL WORKER FREDA ALCAZAR M.D. Performed By: #### G LULS #### Point of Care testing , Basophils/100 WBC (Bld) 0.9 % Normal . [facility] Comment on above: Performed By: #### G LULS #### Point of Care testing , Eosinophils (Bld) [#/Vol] 0.4 10*3/uL Normal 0.0-0.45 [facility] Comment on above: Performed By: #### G LULS #### Point of Care testing , Eosinophils/100 WBC (Bld) 3.0 % Normal . [facility] Comment on above: Performed By: #### G LULS #### Point of Care testing , Erythrocyte distribution width (RBC) [Ratio] 15.6 % High 12.0-14.8 [facility] Comment on above: Performed By: #### G LULS #### Point of Care testing , Hematocrit (Bld) [Volume fraction] 39.1 % Normal 38.8-50.0 [facility] Comment on above: Performed By: #### G LULS #### Point of Care testing , Hemoglobin (Bld) [Mass/Vol] 12.2 g/dL Low 13.0-17.0 [facility] Comment on above: Performed By: #### G LULS #### Point of Care testing , Lymphocytes (Bld) [#/Vol] 1.5 10*3/uL Normal 1.00-4.8 [facility] Comment on above: Performed By: #### G LULS #### Point of Care testing , Lymphocytes/100 WBC (Bld) 12.0 % Normal . [facility] Comment on above: Performed By: #### G LULS #### Point of Care testing , MCH (RBC) [Entitic mass] 26.3 pg Low 27.5-35.2 [facility] Comment on above: Performed By: #### G LULS #### Point of Care testing , MCV (RBC) [Entitic vol] 84.4 fL Normal 83.5-101 [facility] Comment on above: Performed By: #### G LULS #### Point of Care testing , Mean Corpuscular HGB Conc 31.1 g/dL Low 32.5-35.6 [facility] Comment on above: Performed By: #### G LULS #### Point of Care testing , Monocytes (Bld) [#/Vol] 1.1 10*3/uL High 0.0-0.8 [facility] Comment on above: Performed By: #### G LULS #### Point of Care testing , Monocytes/100 WBC (Bld) 8.2 % Normal . [facility] Comment on above: Performed By: #### G LULS #### Point of Care testing , Neutrophils (Bld) [#/Vol] 9.8 10*3/uL High 1.8-7.7 [facility] Comment on above: Performed By: #### G LULS #### Point of Care testing , Neutrophils/100 WBC (Bld) 75.9 % Normal . [facility] Comment on above: Performed By: #### G LULS #### Point of Care testing , NRBC% 0.0 /100{WBC} Normal 0-0.5 [facility] Comment on above: Performed By: #### G LULS #### Point of Care testing , Platelet mean volume (Bld) [Entitic vol] 7.7 fL Normal 6.6-10.1 [facility] Comment on above: Performed By: #### G LULS #### Point of Care testing , Platelets (Bld) [#/Vol] 328 10*3/uL Normal 150-450 [facility] Comment on above: Performed By: #### G LULS #### Point of Care testing , RBC (Bld) [#/Vol] 4.64 10*6/uL Normal 3.90-5.60 [facility] Comment on above: Performed By: #### G LULS #### Point of Care testing , WBC (Bld) [#/Vol] 12.9 10*3/uL High 4.1-10.5 [facility] Comment on above: Performed By: #### G LULS #### Point of Care testing , Glucose Poct Glucometerson 0 07-23-2023 Glucose [Mass/Vol] 158 mg/dL Normal [facility] Comment on above: Result Comment: [place] Glucose Reference Range is dependent on time and content of last meal. Glucose of more than 200 mg/dL in a nonstressed, ambulatory subject supports the diagnosis of Diabetes Mellitus. PERFORMED BY: [place] [address] PATHOLOGIST SEWAGE DISPOSAL WORKER FREDA ALCAZAR M.D. Performed By: #### C UBLD, LACTIC #### [address] Glucose [Mass/Vol] 160 mg/dL Normal [facility] Comment on above: Result Comment: [place] Glucose Reference Range is dependent on time and content of last meal. Glucose of more than 200 mg/dL in a nonstressed, ambulatory subject supports the diagnosis of Diabetes Mellitus. PERFORMED BY: [place] [address] PATHOLOGIST SEWAGE DISPOSAL WORKER FREDA ALCAZAR M.D. Performed By: #### C UBLD, LACTIC #### [address] Commemt1 Glu2: Cleaned Meter Normal [facility] Comment on above: Result Comment: PERF ORMED BY: [place] [address] PATHOLOGIST SEWAGE DISPOSAL WORKER FREDA ALCAZAR M.D. Performed By: #### C UBLD, LACTIC #### [address] Glucose [Mass/Vol] 186 mg/dL Normal [facility] Comment on above: Result Comment: [place] om Glucose Reference Range is dependent on time and content of last meal. Glucose of more than 200 mg/dL in a nonstressed, ambulatory subject supports the diagnosis of Diabetes Mellitus. Performed By: #### C UBLD, LACTIC #### [address] Glucose [Mass/Vol] 175 mg/dL Normal [facility] Comment on above: Result Comment: [place] om Glucose Reference Range is dependent on time and content of last meal. Glucose of more than 200 mg/dL in a nonstressed, ambulatory subject supports the diagnosis of Diabetes Mellitus. PERFORMED BY: [place] [address] PATHOLOGIST SEWAGE DISPOSAL WORKER FREDA ALCAZAR M.D. Performed By: #### G LULS #### Point of Care testing , B-Type Natriuretic Peptideon 07-22-2023 Natriuretic peptide B (Bld) [Mass/Vol] 270.0 pg/mL High 5-100 [facility] Comment on above: Order Comment: Comme nt Add on Result Comment: PERF ORMED BY: [place] [address] PATHOLOGIST SEWAGE DISPOSAL WORKER FREDA ALCAZAR M.D. Performed By: #### C UBLD, LACTIC #### [address] Basic Metabolic Panelon 04-0 Anion gap [Moles/Vol] 8.3 mmol/L Normal 6.0-15.0 [facility] Comment on above: Performed By: #### G LULS #### Point of Care testing , Calcium [Mass/Vol] 8.7 mg/dL Normal 8.6-10.3 [facility] Comment on above: Performed By: #### G LULS #### Point of Care testing , Chloride [Moles/Vol] 98 mmol/L Normal 98-107 [facility] Comment on above: Performed By: #### G LULS #### Point of Care testing , CO2 [Moles/Vol] 34.9 mmol/L High 21.0-31.0 [facility] Comment on above: Performed By: #### G LULS #### Point of Care testing , Creatinine [Mass/Vol] 1.22 mg/dL Normal 0.70-1.30 [facility] Comment on above: Performed By: #### G LULS #### Point of Care testing , Creatinine Clr Calc Pharmacy 76.57 Normal [facility] Comment on above: Result Comment: PERF ORMED BY: [facility] [address] [place] [address] PATHOLOGIST SE[employer]AGE DISPOSAL WORKER FREDA ALCAZAR M.D. Performed By: #### G LULS #### Point of Care testing , GFR/1.73 sq M.predicted MDRD (S/P/Bld) [Vol rate/Area] mL/min/{1.73_m2} Normal [facility] Comment on above: Performed By: #### G LULS #### Point of Care testing , Glucose [Mass/Vol] 169 mg/dL High 70-100 [facility] Comment on above: Result Comment: [facility] Glucose Reference Range is dependent on time and content of last meal. Glucose of more than 200 mg/dL in a nonstressed, ambulatory subject supports the diagnosis of Diabetes Mellitus. ADA recommended reference range Performed By: #### G LULS #### Point of Care testing , Potassium [Moles/Vol] 4.2 mmol/L Normal 3.5-5.1 [facility] Comment on above: Performed By: #### G LULS #### Point of Care testing , Sodium [Moles/Vol] 137 mmol/L Normal 136-145 [facility] Comment on above: Performed By: #### G LULS #### Point of Care testing , Urea nitrogen [Mass/Vol] 15 mg/dL Normal 7-25 [facility] Comment on above: Performed By: #### G LULS #### Point of Care testing , Blood Cultureon 07-22-2023 Bacteria identified Cx Nom (Bld) NO GROWTH 5 DAYS PERFORMED BY: [place] [address] PATHOLOGIST SEWAGE DISPOSAL WORKER FREDA ALCAZAR M.D. Normal [facility] Comment on above: Performed By: #### C UBLD, LACTIC #### [address] Bacteria identified Cx Nom (Bld) NO GROWTH 5 DAYS PERFORMED BY: [place] [address] PATHOLOGIST SEWAGE DISPOSAL WORKER FREDA ALCAZAR M.D. Normal [facility] Comment on above: Performed By: #### C UBLD, LACTIC #### [facility] [address] [place] [address] Glucose Poct Glucometerson 0 07-22-2023 Glucose [Mass/Vol] 190 mg/dL Normal [facility] Comment on above: Result Comment: [place] om Glucose Reference Range is dependent on time and content of last meal. Glucose of more than 200 mg/dL in a nonstressed, ambulatory subject supports the diagnosis of Diabetes Mellitus. PERFORMED BY: [place] [address] PATHOLOGIST SEWAGE DISPOSAL WORKER FREDA ALCAZAR M.D. Performed By: #### C UBLD, LACTIC #### [address] Glucose [Mass/Vol] 194 mg/dL Normal [facility] Comment on above: Result Comment: [place] om Glucose Reference Range is dependent on time and content of last meal. Glucose of more than 200 mg/dL in a nonstressed, ambulatory subject supports the diagnosis of Diabetes Mellitus. PERFORMED BY: [place] [address] PATHOLOGIST SEWAGE DISPOSAL WORKER FREDA ALCAZAR M.D. Performed By: #### C UBLD, LACTIC #### [address] Commemt1 Glu2: Cleaned Meter Normal [facility] Comment on above: Result Comment: PERF ORMED BY: [place] [address] PATHOLOGIST SEWAGE DISPOSAL WORKER FREDA ALCAZAR M.D. Performed By: #### C UBLD, LACTIC #### [facility] [address] Glucose [Mass/Vol] 215 mg/dL Normal [facility] Comment on above: Result Comment: [place] om Glucose Reference Range is dependent on time and content of last meal. Glucose of more than 200 mg/dL in a nonstressed, ambulatory subject supports the diagnosis of Diabetes Mellitus. Performed By: #### C UBLD, LACTIC #### [facility] [address] Glucose [Mass/Vol] 146 mg/dL Normal [facility] Comment on above: Result Comment: [place] om Glucose Reference Range is dependent on time and content of last meal. Glucose of more than 200 mg/dL in a nonstressed, ambulatory subject supports the diagnosis of Diabetes Mellitus. PERFORMED BY: [place] [address] PATHOLOGIST SEWAGE DISPOSAL WORKER FREDA ALCAZAR M.D. Performed By: #### G LULS #### Point of Care testing , Natriuretic peptide B [Mass/ Vol]Ordered By: Sarah Herron on 07-22-2023 Natriuretic peptide B (Bld) [Mass/Vol] 270.0 pg/mL 5-100 [facility] Poikilocytosis [Presence] in Blood by Light microscopyOrdered By: Balbina Gazron on 07-22-2023 Poikilocytosis LM Ql (Bld) Slight [facility] Red blood cell stomatocyte d etectionOrdered By: Balbina Garzon on 07-22-2023 Stomatocytes LM Ql (Bld) Slight [facility] Scan and CBCon 07-22-2023 Anisocytosis Ql (Bld) Slight Normal [facility] Comment on above: Performed By: #### G LULS #### Point of Care testing , Basophils (Bld) [#/Vol] 0.2 10*3/uL Normal 0.0-0.2 [facility] Comment on above: Performed By: #### G LULS #### Point of Care testing , Basophils/100 WBC (Bld) 1.2 % Normal . [facility] Comment on above: Performed By: #### G LULS #### Point of Care testing , Eosinophils (Bld) [#/Vol] 0.3 10*3/uL Normal 0.0-0.45 [facility] Comment on above: Performed By: #### G LULS #### Point of Care testing , Eosinophils/100 WBC (Bld) 2.0 % Normal . [facility] Comment on above: Performed By: #### G LULS #### Point of Care testing , Erythrocyte distribution width (RBC) [Ratio] 15.6 % High 12.0-14.8 [facility] Comment on above: Performed By: #### G LULS #### Point of Care testing , Hematocrit (Bld) [Volume fraction] 40.8 % Normal 38.8-50.0 [facility] Comment on above: Performed By: #### G LULS #### Point of Care testing , Hemoglobin (Bld) [Mass/Vol] 12.3 g/dL Low 13.0-17.0 [facility] Comment on above: Performed By: #### G LULS #### Point of Care testing , Hypochromasia Moderate Normal [facility] Comment on above: Performed By: #### G LULS #### Point of Care testing , Lymphocytes (Bld) [#/Vol] 1.3 10*3/uL Normal 1.00-4.8 [facility] Comment on above: Performed By: #### G LULS #### Point of Care testing , Lymphocytes/100 WBC (Bld) 8.2 % Normal . [facility] Comment on above: Performed By: #### G LULS #### Point of Care testing , MCH (RBC) [Entitic mass] 25.6 pg Low 27.5-35.2 [facility] Comment on above: Performed By: #### G LULS #### Point of Care testing , MCV (RBC) [Entitic vol] 85.3 fL Normal 83.5-101 [facility] Comment on above: Performed By: #### G LULS #### Point of Care testing , Mean Corpuscular HGB Conc 30.0 g/dL Low 32.5-35.6 [facility] Comment on above: Performed By: #### G LULS #### Point of Care testing , Monocytes (Bld) [#/Vol] 1.1 10*3/uL High 0.0-0.8 [facility] Comment on above: Performed By: #### G LULS #### Point of Care testing , Monocytes/100 WBC (Bld) 6.8 % Normal . [facility] Comment on above: Performed By: #### G LULS #### Point of Care testing , Neutrophils (Bld) [#/Vol] 13.1 10*3/uL High 1.8-7.7 [facility] Comment on above: Performed By: #### G LULS #### Point of Care testing , Neutrophils/100 WBC (Bld) 81.8 % Normal . [facility] Comment on above: Performed By: #### G LULS #### Point of Care testing , NRBC% 0.0 /100{WBC} Normal 0-0.5 [facility] Comment on above: Performed By: #### G LULS #### Point of Care testing , Platelet Estimate Normal Normal Normal [facility] Comment on above: Performed By: #### G LULS #### Point of Care testing , Platelet mean volume (Bld) [Entitic vol] 7.8 fL Normal 6.6-10.1 [facility] Comment on above: Performed By: #### G LULS #### Point of Care testing , Platelet Morphology Normal Normal Normal [facility] Comment on above: Result Comment: PERF ORMED BY: [facility] [place] [address] PATHOLOGIST [employer]POSAL WORKER FREDA ALCAZAR M.D. Performed By: #### G LULS #### Point of Care testing , Platelets (Bld) [#/Vol] 330 10*3/uL Normal 150-450 [facility] Comment on above: Performed By: #### G LULS #### Point of Care testing , Poikilocytosis Slight Normal [facility] Comment on above: Performed By: #### G LULS #### Point of Care testing , Polychromasia Slight Normal [facility] Comment on above: Performed By: #### G LULS #### Point of Care testing , RBC (Bld) [#/Vol] 4.79 10*6/uL Normal 3.90-5.60 [facility] Comment on above: Performed By: #### G LULS #### Point of Care testing , Stomatocytes Slight Normal [facility] Comment on above: Performed By: #### G LULS #### Point of Care testing , WBC (Bld) [#/Vol] 16.1 10*3/uL High 4.1-10.5 [facility] Comment on above: Performed By: #### G LULS #### Point of Care testing , Vancomycin,Peakon 07-22-2023 Vancomycin,Peak 34.9 ug/mL Normal 20.0-40.0 [facility] Comment on above: Order Comment: Comme nt ?DRAW 1 HOUR AFTER INFUSION COMPLETES Date of last dose?: 20230721 Time of last dose?: 2299 Result Comment: Last dose: - PERFORMED BY: [address] [place] [address] PATHOLOGIST [employer]WAGE [employer]POSAL WORKER FREDA ALCAZAR M.D. Performed By: #### G LULS #### Point of Care testing , Vancomycin,Troughon 07-22-19 24 Vancomycin,Trough 16.9 ug/mL Normal 10.0-20.0 [facility] Comment on above: Result Comment: Last dose: - PERFORMED BY: [facility] [address] [facility] [place] [address] PATHOLOGIST SEWAGE DISPOSAL WORKER FREDA ALCAZAR M.D. Performed By: #### G LULS #### Point of Care testing , Basic Metabolic Panelon Anion gap [Moles/Vol] 10.5 mmol/L Normal 6.0-15.0 [facility] Comment on above: Performed By: #### C UBLD, LACTIC #### [address] Calcium [Mass/Vol] 8.4 mg/dL Low 8.6-10.3 [facility] Comment on above: Performed By: #### C UBLD, LACTIC #### [address] Chloride [Moles/Vol] 101 mmol/L Normal 98-107 [facility] Comment on above: Performed By: #### C UBLD, LACTIC #### [address] CO2 [Moles/Vol] 30.8 mmol/L Normal 21.0-31.0 [facility] Comment on above: Performed By: #### C UBLD, LACTIC #### [address] Creatinine [Mass/Vol] 1.26 mg/dL Normal 0.70-1.30 [facility] Comment on above: Performed By: #### C UBLD, LACTIC #### [place] [address] [place] Creatinine Clr Calc Pharmacy 74.56 Normal [facility] Comment on above: Result Comment: PERF ORMED BY: [place] [address] PATHOLOGIST [employer]AGE [employer]POSAL WORKER FREDA ALCAZAR M.D. Performed By: #### C UBLD, LACTIC #### [place] [address] [place] GFR/1.73 sq M.predicted MDRD (S/P/Bld) [Vol rate/Area] 58.743 mL/min/{1.73_m2} Normal [facility] Comment on above: Performed By: #### C UBLD, LACTIC #### [address] Glucose [Mass/Vol] 210 mg/dL High 70-100 [facility] Comment on above: Result Comment: [facility] Glucose Reference Range is dependent on time and content of last meal. Glucose of more than 200 mg/dL in a nonstressed, ambulatory subject supports the diagnosis of Diabetes Mellitus. ADA recommended reference range Performed By: #### C UBLD, LACTIC #### [address] Potassium [Moles/Vol] 4.3 mmol/L Normal 3.5-5.1 [facility] Comment on above: Performed By: #### C UBLD, LACTIC #### [address] Sodium [Moles/Vol] 138 mmol/L Normal 136-145 [facility] Comment on above: Performed By: #### C UBLD, LACTIC #### [address] Urea nitrogen [Mass/Vol] 16 mg/dL Normal 7-25 [facility] Comment on above: Performed By: #### C UBLD, LACTIC #### [address] angio neckon 07-21-2023 CT angio neck [facility] [place] [place] [address] CT Scan Report Signed Patient: Corona Wharton MR#: [id number] 1 : 1945 Acct:[id number] Age/Sex: 78 / M ADM Date: 07/19/23 Loc: Room: [address] [place] [address] Type: ADM IN Attending Dr: Luigi Napoles DO Copies to: DO Luigi Moore DO Ordering Provider: Matthew Bean DO Date of Service: 07/21/23 CT/CT angio head: stroke ([id number]) CT/CT angio neck: stroke CT angio head, [...] occlusion. Impression dictated by: Kuldeep Yost Jr., Najma07/21/2023 2:40 PM Dictation Location: [place] [address] Transcribed By: [facility] 07/21/23 1440 Dictated By: Kuldeep Yost Jr, DO 07/21/23 1432 Signed By: 07/21/23 1440 Normal [facility] Complete Blood Count Auto Di ffon 07-21-2023 Basophils (Bld) [#/Vol] 0.1 10*3/uL Normal 0.0-0.2 [facility] Comment on above: Result Comment: PERF ORMED BY: [place] [address] PATHOLOGIST SEWAGE DISPOSAL WORKER FREDA ALCAZAR M.D. Performed By: #### C UBLD, LACTIC #### [address] Basophils/100 WBC (Bld) 1.0 % Normal . [facility] Comment on above: Performed By: #### C UBLD, LACTIC #### [facility] [address] [place] [address] [place] Eosinophils (Bld) [#/Vol] 0.5 10*3/uL High 0.0-0.45 [facility] Comment on above: Performed By: #### C UBLD, LACTIC #### [place] [address] [place] Eosinophils/100 WBC (Bld) 3.7 % Normal . [facility] Comment on above: Performed By: #### C UBLD, LACTIC #### [address] Erythrocyte distribution width (RBC) [Ratio] 15.6 % High 12.0-14.8 [facility] Comment on above: Performed By: #### C UBLD, LACTIC #### [address] Hematocrit (Bld) [Volume fraction] 42.7 % Normal 38.8-50.0 [facility] Comment on above: Performed By: #### C UBLD, LACTIC #### [place] [address] [place] Hemoglobin (Bld) [Mass/Vol] 12.8 g/dL Low 13.0-17.0 [facility] Comment on above: Performed By: #### C UBLD, LACTIC #### [place] [address] [place] Lymphocytes (Bld) [#/Vol] 1.9 10*3/uL Normal 1.00-4.8 [facility] Comment on above: Performed By: #### C UBLD, LACTIC #### [place] [address] [place] Lymphocytes/100 WBC (Bld) 13.7 % Normal . [facility] Comment on above: Performed By: #### C UBLD, LACTIC #### [address] MCH (RBC) [Entitic mass] 25.9 pg Low 27.5-35.2 [facility] Comment on above: Performed By: #### C UBLD, LACTIC #### [address] MCV (RBC) [Entitic vol] 86.1 fL Normal 83.5-101 [facility] Comment on above: Performed By: #### C UBLD, LACTIC #### [address] Mean Corpuscular HGB Conc 30.1 g/dL Low 32.5-35.6 [facility] Comment on above: Performed By: #### C UBLD, LACTIC #### [place] [address] [place] Monocytes (Bld) [#/Vol] 1.0 10*3/uL High 0.0-0.8 [facility] Comment on above: Performed By: #### C UBLD, LACTIC #### [place] [address] [place] Monocytes/100 WBC (Bld) 7.1 % Normal . [facility] Comment on above: Performed By: #### C UBLD, LACTIC #### [place] [address] [place] Neutrophils (Bld) [#/Vol] 10.6 10*3/uL High 1.8-7.7 [facility] Comment on above: Performed By: #### C UBLD, LACTIC #### [place] [address] [place] Neutrophils/100 WBC (Bld) 74.5 % Normal . [facility] Comment on above: Performed By: #### C UBLD, LACTIC #### [place] [address] [place] NRBC% 0.1 /100{WBC} Normal 0-0.5 [facility] Comment on above: Performed By: #### C UBLD, LACTIC #### [address] Platelet mean volume (Bld) [Entitic vol] 7.9 fL Normal 6.6-10.1 [facility] Comment on above: Performed By: #### C UBLD, LACTIC #### [address] Platelets (Bld) [#/Vol] 312 10*3/uL Normal 150-450 [facility] Comment on above: Performed By: #### C UBLD, LACTIC #### [address] RBC (Bld) [#/Vol] 4.95 10*6/uL Normal 3.90-5.60 [facility] Comment on above: Performed By: #### C UBLD, LACTIC #### [address] WBC (Bld) [#/Vol] 14.2 10*3/uL High 4.1-10.5 [facility] Comment on above: Performed By: #### C UBLD, LACTIC #### [address] Glucose Poct Glucometerson 0 07-21-2023 Glucose [Mass/Vol] 177 mg/dL Normal [facility] Comment on above: Result Comment: [place] [facility] Glucose Reference Range is dependent on time and content of last meal. Glucose of more than 200 mg/dL in a nonstressed, ambulatory subject supports the diagnosis of Diabetes Mellitus. PERFORMED BY: [place] [address] PATHOLOGIST SEWAGE DISPOSAL WORKER FREDA ALCAZAR M.D. Performed By: #### C UBLD, LACTIC #### [address] Commemt1 Glu2: Cleaned Meter Normal [facility] Comment on above: Result Comment: PERF ORMED BY: [place] [address] PATHOLOGIST SEWAGE DISPOSAL WORKER FREDA ALCAZAR M.D. Performed By: #### G LULS #### Point of Care testing , Glucose [Mass/Vol] 179 mg/dL Normal [facility] Comment on above: Result Comment: [place] [facility] Glucose Reference Range is dependent on time and content of last meal. Glucose of more than 200 mg/dL in a nonstressed, ambulatory subject supports the diagnosis of Diabetes Mellitus. Performed By: #### G LULS #### Point of Care testing , Commemt1 Glu2: Cleaned Meter Normal [facility] Comment on above: Result Comment: PERF ORMED BY: [place] [address] PATHOLOGIST SEWAGE DISPOSAL WORKER FREDA ALCAZAR M.D. Performed By: #### C UBLD, LACTIC #### [address] Glucose [Mass/Vol] 240 mg/dL Normal [facility] Comment on above: Result Comment: [place] [facility] Glucose Reference Range is dependent on time and content of last meal. Glucose of more than 200 mg/dL in a nonstressed, ambulatory subject supports the diagnosis of Diabetes Mellitus. Performed By: #### C UBLD, LACTIC #### [address] Commemt1 Glu2: Cleaned Meter Normal [facility] Comment on above: Result Comment: PERF ORMED BY: [place] [address] PATHOLOGIST SEWAGE DISPOSAL WORKER FREDA ALCAZAR M.D. Performed By: #### G LULS #### Point of Care testing , Glucose [Mass/Vol] 181 mg/dL Normal [facility] Comment on above: Result Comment: [place] [facility] Glucose Reference Range is dependent on time and content of last meal. Glucose of more than 200 mg/dL in a nonstressed, ambulatory subject supports the diagnosis of Diabetes Mellitus. Performed By: #### G LULS #### Point of Care testing , MR head/brain wo [facility] 07-20 MR head/brain wo [facility] [place] [address] MRI Report Signed Patient: Corona Wharton MR#: [id number] 1 : 1945 Acct:[id number] Age/Sex: 78 / M ADM Date: 07/19/23 Loc: Room: [address] [place] [address] Type: ADM IN Attending Dr: Luigi Napoles [...] MICROVASCULAR ISCHEMIC CHANGES WHICH HAVE PROGRESSED SINCE 2015. 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 Findings were discussed with Arelis of the hospitalist service 9:07 AM 07/21/2023. Impression dictated by: Kuldeep Yost Jr., D.OFausto07/21/2023 9:07 AM Dictation Location: [place] [address] Transcribed By: [facility] 07/21/23 0907 Dictated By: Kuldeep Yost Jr, DO 07/21/23 0856 Signed By: 07/21/23 0907 Normal [facility] Magnesiumon 07-21-2023 Magnesium [Mass/Vol] 1.8 mg/dL Low 1.9-2.7 [facility] Comment on above: Result Comment: PERF ORMED BY: [address] [place] [address] PATHOLOGIST SEWAGE DISPOSAL WORKER FREDA ALCAZAR M.D. Performed By: #### C UBLD, LACTIC #### [facility] [address] [place] [address] A1C with Estimated Average G nichellen 07-20-2023 Glucose [Mass/Vol] 272 mg/dL Normal [facility] Comment on above: Result Comment: PERF ORMED BY: [place] [address] PATHOLOGIST SEWAGE DISPOSAL WORKER FREDA ALCAZAR M.D. Performed By: #### C UU, ADDONUAPLUS #### [address] HbA1c (Bld) [Mass fraction] 11.1 % High 4.3-5.6 [facility] Comment on above: Result Comment: Incr eased risk for diabetes: 5.7 - 6.4 diabetes: >6.4 glycemic control for adults with diabetes: <7.0 Performed By: #### C UU, ADDONUAPLUS #### [facility] [address] [place] [address] Alanine aminotransferase [En zymatic activity/volume] in Serum or PlasmaOrdered By: Balbina Garzon on 07-20-2023 ALT [Catalytic activity/Vol] 15 U/L 7-52 [facility] Albumin [Mass/volume] in Ser um or Plasma by Bromocresol green (BCG) dye binding methoOrdered By: Balbina Garzon on 07-20-2023 Albumin BCG dye [Mass/Vol] 3.2 g/dL 3.5-5.7 [facility] Alkaline phosphatase [Enzyma tic activity/volume] in Serum or PlasmaOrdered By: Balbina Garzon on 07-20-2023 ALP [Catalytic activity/Vol] 73 U/L 34-104 [facility] Aspartate aminotransferase [ Enzymatic activity/volume] in Serum or PlasmaOrdered By: Balbina Garzon on 07-20-2023 AST [Catalytic activity/Vol] 21 U/L 13-39 [facility] Bilirubin.total [Mass/volume ] in Serum or PlasmaOrdered By: Balbina Garzon on 07-20-2023 Bilirubin [Mass/Vol] 0.5 mg/dL 0.3-1.0 [facility] Blood Cultureon 07-20-2023 Bacteria identified Cx Nom (Bld) NO GROWTH 5 DAYS PERFORMED BY: [place] [address] PATHOLOGIST SEWAGE DISPOSAL WORKER FREDA ALCAZAR M.D. Normal [facility] Comment on above: Performed By: #### C UBLD, LACTIC #### [facility] [address] Bacteria identified Cx Nom (Bld) NO GROWTH 5 DAYS PERFORMED BY: [place] [address] PATHOLOGIST SEWAGE DISPOSAL WORKER FREDA ALCAZAR M.D. Normal [facility] Comment on above: Performed By: #### C UBLD, LACTIC #### [address] Cholesterol [Mass/volume] in Serum or PlasmaOrdered By: Balbina Garzon on 07-20-2023 Cholesterol [Mass/Vol] 212 mg/dL 140-200 [facility] Comment on above: Chol less than 200 m g/dl low riskChol 201-239 mg/dl borderline riskChol 240 mg/dl and greater high risk Cholesterol in LDL Calc [Mas s/Vol]Ordered By: Balbina Garzon on 07-20-2023 Cholesterol in LDL [Mass/Vol] 140 mg/dL 0-100 [facility] Comment on above: LDL ATP III CLASSIFI CATIONLDL less than 100 mg/dL OptimalLDL 100-129 mg/dL Near or above optimalLDL 130-159 mg/dL Borderline highLDL 160-189 mg/dL HighLDL greater than 189 mg/dL Very high Cholesterol in VLDL Calc [Ma ss/Vol]Ordered By: Balbina Garzon on 07-20-2023 Cholesterol in VLDL [Mass/Vol] 26 mg/dL [facility] Complete Blood Count Auto Di ffon 07-20-2023 Basophils (Bld) [#/Vol] 0.2 10*3/uL Normal 0.0-0.2 [facility] Comment on above: Result Comment: PERF ORMED BY: [place] [address] PATHOLOGIST SEWAGE DISPOSAL WORKER FREDA ALCAZAR M.D. Performed By: #### C UBLD, LACTIC #### [facility] [address] [place] [address] [place] Basophils/100 WBC (Bld) 1.3 % Normal . [facility] Comment on above: Performed By: #### C UBLD, LACTIC #### [place] [address] [place] Eosinophils (Bld) [#/Vol] 0.6 10*3/uL High 0.0-0.45 [facility] Comment on above: Performed By: #### C UBLD, LACTIC #### [place] [address] [place] Eosinophils/100 WBC (Bld) 4.1 % Normal . [facility] Comment on above: Performed By: #### C UBLD, LACTIC #### [address] Erythrocyte distribution width (RBC) [Ratio] 15.4 % High 12.0-14.8 [facility] Comment on above: Performed By: #### C UBLD, LACTIC #### [address] Hematocrit (Bld) [Volume fraction] 39.6 % Normal 38.8-50.0 [facility] Comment on above: Performed By: #### C UBLD, LACTIC #### [place] [address] [place] Hemoglobin (Bld) [Mass/Vol] 12.2 g/dL Low 13.0-17.0 [facility] Comment on above: Performed By: #### C UBLD, LACTIC #### [place] [address] [place] Lymphocytes (Bld) [#/Vol] 2.2 10*3/uL Normal 1.00-4.8 [facility] Comment on above: Performed By: #### C UBLD, LACTIC #### [place] [address] [place] Lymphocytes/100 WBC (Bld) 15.1 % Normal . [facility] Comment on above: Performed By: #### C UBLD, LACTIC #### [address] MCH (RBC) [Entitic mass] 26.5 pg Low 27.5-35.2 [facility] Comment on above: Performed By: #### C UBLD, LACTIC #### [address] MCV (RBC) [Entitic vol] 85.8 fL Normal 83.5-101 [facility] Comment on above: Performed By: #### C UBLD, LACTIC #### [address] Mean Corpuscular HGB Conc 30.9 g/dL Low 32.5-35.6 [facility] Comment on above: Performed By: #### C UBLD, LACTIC #### [address] Monocytes (Bld) [#/Vol] 1.1 10*3/uL High 0.0-0.8 [facility] Comment on above: Performed By: #### C UBLD, LACTIC #### [place] [address] [place] Monocytes/100 WBC (Bld) 7.5 % Normal . [facility] Comment on above: Performed By: #### C UBLD, LACTIC #### [address] Neutrophils (Bld) [#/Vol] 10.4 10*3/uL High 1.8-7.7 [facility] Comment on above: Performed By: #### C UBLD, LACTIC #### [address] Neutrophils/100 WBC (Bld) 72.0 % Normal . [facility] Comment on above: Performed By: #### C UBLD, LACTIC #### [address] NRBC% 0.4 /100{WBC} Normal 0-0.5 [facility] Comment on above: Performed By: #### C UBLD, LACTIC #### [address] Platelet mean volume (Bld) [Entitic vol] 8.6 fL Normal 6.6-10.1 [facility] Comment on above: Performed By: #### C UBLD, LACTIC #### [address] Platelets (Bld) [#/Vol] 345 10*3/uL Normal 150-450 [facility] Comment on above: Performed By: #### C UBLD, LACTIC #### [address] RBC (Bld) [#/Vol] 4.61 10*6/uL Normal 3.90-5.60 [facility] Comment on above: Performed By: #### C UBLD, LACTIC #### [address] WBC (Bld) [#/Vol] 14.5 10*3/uL High 4.1-10.5 [facility] Comment on above: Performed By: #### C UBLD, LACTIC #### [address] Comprehensive Metabolic Pane jeanna 07-20-2023 Albumin [Mass/Vol] 3.2 g/dL Low 3.5-5.7 [facility] Comment on above: Performed By: #### C UBLD, LACTIC #### [address] Albumin/Globulin [Mass ratio] 1.3 {ratio} Normal [facility] Comment on above: Performed By: #### C UBLD, LACTIC #### [address] ALP [Catalytic activity/Vol] 73 U/L Normal 34-104 [facility] Comment on above: Performed By: #### C UBLD, LACTIC #### [address] ALT [Catalytic activity/Vol] 15 U/L Normal 7-52 [facility] Comment on above: Performed By: #### C UBLD, LACTIC #### [address] Anion gap [Moles/Vol] 9.1 mmol/L Normal 6.0-15.0 [facility] Comment on above: Performed By: #### C UBLD, LACTIC #### [address] AST [Catalytic activity/Vol] 21 U/L Normal 13-39 [facility] Comment on above: Performed By: #### C UBLD, LACTIC #### [address] Bilirubin [Mass/Vol] 0.5 mg/dL Normal 0.3-1.0 [facility] Comment on above: Performed By: #### C UBLD, LACTIC #### [address] Calcium [Mass/Vol] 8.7 mg/dL Normal 8.6-10.3 [facility] Comment on above: Performed By: #### C UBLD, LACTIC #### [place] [address] [place] Chloride [Moles/Vol] 102 mmol/L Normal 98-107 [facility] Comment on above: Performed By: #### C UBLD, LACTIC #### [place] [address] [place] CO2 [Moles/Vol] 30.1 mmol/L Normal 21.0-31.0 [facility] Comment on above: Performed By: #### C UBLD, LACTIC #### [place] [address] [place] Creatinine [Mass/Vol] 1.30 mg/dL Normal 0.70-1.30 [facility] Comment on above: Performed By: #### C UBLD, LACTIC #### [place] [address] [place] Creatinine Clr Calc Pharmacy 72.15 Normal [facility] Comment on above: Performed By: #### C UBLD, LACTIC #### [place] [id number] [place] GFR/1.73 sq M.predicted MDRD (S/P/Bld) [Vol rate/Area] 56.581 mL/min/{1.73_m2} Normal [facility] Comment on above: Performed By: #### C UBLD, LACTIC #### [address] Globulin (S) [Mass/Vol] 2.5 g/dL Normal [facility] Comment on above: Performed By: #### C UBLD, LACTIC #### [address] Glucose [Mass/Vol] 228 mg/dL High 70-100 [facility] Comment on above: Result Comment: [facility] Glucose Reference Range is dependent on time and content of last meal. Glucose of more than 200 mg/dL in a nonstressed, ambulatory subject supports the diagnosis of Diabetes Mellitus. ADA recommended reference range Performed By: #### C UBLD, LACTIC #### [address] Potassium [Moles/Vol] 4.2 mmol/L Normal 3.5-5.1 [facility] Comment on above: Performed By: #### C UBLD, LACTIC #### [address] Protein [Mass/Vol] 5.7 g/dL Low 6.4-8.9 [facility] Comment on above: Performed By: #### C UBLD, LACTIC #### [address] Sodium [Moles/Vol] 137 mmol/L Normal 136-145 [facility] Comment on above: Performed By: #### C UBLD, LACTIC #### [address] Urea nitrogen [Mass/Vol] 17 mg/dL Normal 7-25 [facility] Comment on above: Performed By: #### C UBLD, LACTIC #### [address] [facility] echo transthoracicon [facility] echo transthoracic [facility] [place] [address] [place] [address] Echocardiogram Signed Patient: Corona Wharton MR#: [id number] 1 : 1945 Acct:[id number] Age/Sex: 78 / M ADM Date: 07/19/23 Loc: Room: [address] [place] [address] Type: ADM IN Attending Dr: Luigi Napoles DO Ordering Provider: Balbina Garzon DO Date of Service: 07/20/2309/06/658 [facility] echo transthoracic: edema Copies to: Thom Teran MD, [facility] Balbina Garzon DO BSA: 2.7 m2 [...] MV V2 VTI: 30.1 cm Transcribed By: SCV Performed At: 07/20/23 1347 Signed By: Thom Teran MD, [facility] 07/20/23 8880 Normal [facility] Globulin Calc (S) [Mass/Vol] Ordered By: Balbina Garzon on 07-20-2023 Globulin (S) [Mass/Vol] 2.5 g/dL [facility] Glucose Poct Glucometerson 0 07-20-2023 Glucose [Mass/Vol] 201 mg/dL Normal [facility] Comment on above: Result Comment: [place] om Glucose Reference Range is dependent on time and content of last meal. Glucose of more than 200 mg/dL in a nonstressed, ambulatory subject supports the diagnosis of Diabetes Mellitus. PERFORMED BY: [place] [address] PATHOLOGIST SEWAGE DISPOSAL WORKER FREDA ALCAZAR M.D. Performed By: #### G LULS #### Point of Care testing , Commemt1 Glu2: Cleaned Meter Normal [facility] Comment on above: Result Comment: PERF ORMED BY: [place] [address] PATHOLOGIST SEWAGE DISPOSAL WORKER FREDA ALCAZAR M.D. Performed By: #### G LULS #### Point of Care testing , Glucose [Mass/Vol] 205 mg/dL Normal [facility] Comment on above: Result Comment: [place] Glucose Reference Range is dependent on time and content of last meal. Glucose of more than 200 mg/dL in a nonstressed, ambulatory subject supports the diagnosis of Diabetes Mellitus. Performed By: #### G LULS #### Point of Care testing , Commemt1 Glu2: Cleaned Meter Normal [facility] Comment on above: Result Comment: PERF ORMED BY: [place] [address] PATHOLOGIST SEWAGE DISPOSAL WORKER FREDA ALCAZAR M.D. Performed By: #### G LULS #### Point of Care testing , Glucose [Mass/Vol] 211 mg/dL Normal [facility] Comment on above: Result Comment: [place] om Glucose Reference Range is dependent on time and content of last meal. Glucose of more than 200 mg/dL in a nonstressed, ambulatory subject supports the diagnosis of Diabetes Mellitus. Performed By: #### G LULS #### Point of Care testing , Commemt1 Glu2: Cleaned Meter Normal [facility] Comment on above: Result Comment: PERF ORMED BY: [place] [id number] PATHOLOGIST SEWAGE DISPOSAL WORKER FREDA ALCAZAR M.D. Performed By: #### G LULS #### Point of Care testing , Glucose [Mass/Vol] 203 mg/dL Normal [facility] Comment on above: Result Comment: [place] Glucose Reference Range is dependent on time [...] from glycated hemoglobin (Bld) [Mass/Vol] 272 mg/dL [facility] Hemoglobin A1c percentageOrd ered By: Balbina Garzon on 07-20-2023 HbA1c (Bld) [Mass fraction] 11.1 % 4.3-5.6 [facility] Comment on above: Increased risk for d iabetes: 5.7 - 6.4diabetes: >6.4glycemic control for adults with diabetes: <7.0 Lactic Acidon 07-20-2023 Lactate [Moles/Vol] 1.0 mmol/L Normal 0.5-2.2 [facility] Comment on above: Result Comment: PERF ORMED BY: [place] [address] PATHOLOGIST SEWAGE DISPOSAL WORKER FREDA ALCAZAR M.D. Performed By: #### C UBLD, LACTIC #### [facility] [address] [place] [address] Lipid Panelon 07-20-2023 Cholesterol [Mass/Vol] 212 mg/dL High 140-200 [facility] Comment on above: Result Comment: Chol less than 200 mg/dl low risk Chol 201-239 mg/dl borderline risk Chol 240 mg/dl and greater high risk Performed By: #### C UU, ADDONUAPLUS #### [facility] [address] [place] [address] Cholesterol in HDL [Mass/Vol] 45 mg/dL Normal 23-92 [facility] Comment on above: Result Comment: HDL CHOL ATP-III CLASSIFICATION Cardiovascular Risk HDL > or equal to 60 mg/dL LOW HDL < 40 mg/dL HIGH Performed By: #### C UU, ADDONUAPLUS #### [address] Cholesterol.total/Chol esterol in HDL [Mass ratio] 4.7 {ratio} Normal <5.0 [facility] Comment on above: Result Comment: PERF ORMED BY: [place] [address] PATHOLOGIST SEWAGE DISPOSAL WORKER FREDA ALCAZAR M.D. Performed By: #### C CIERRA, ADDONUAPLUS #### [address] LDL Cholesterol,Calculated 140 mg/dL High 0-100 [facility] Comment on above: Result Comment: LDL ATP III CLASSIFICATION LDL less than 100 mg/dL Optimal LDL 100-129 mg/dL Near or above optimal LDL 130-159 mg/dL Borderline high LDL 160-189 mg/dL High LDL greater than 189 mg/dL Very high Performed By: #### C UArya, ADDONUAPLUS #### [address] Triglyceride w/Reflex 134 mg/dL Normal 0-149 [facility] Comment on above: Result Comment: TRIG ATP III CLASSIFICATION TRIG less than 150 mg/dL Normal TRIG 150-199 mg/dL Borderline high TRIG 200-500 mg/dL High TRIG greater than 500 mg/dL Very high Standard traceable to the Center for Disease Conrtrol and Prevention (CDC) test method. Performed By: #### C CIERRA ADDONUAPLUS #### [address] VLDL CHOLESTEROL 26 mg/dL Normal [facility] Comment on above: Performed By: #### C CIERRA ADDONUAPLUS #### [address] Magnesiumon 07-20-2023 Magnesium [Mass/Vol] 1.8 mg/dL Low 1.9-2.7 [facility] Comment on above: Performed By: #### Jacky NORTON ADDONUAPLUS #### [facility] [address] [place] [id number] [facility] Protein [Mass/volume] in Ser um or PlasmaOrdered By: Balbina Garzon on 07-20-2023 Protein [Mass/Vol] 5.7 g/dL 6.4-8.9 [facility] Serum or plasma albumin/glob ulin mass ratioOrdered By: Balbina Garzon on 07-20-2023 Albumin/Globulin [Mass ratio] 1.3 {ratio} [facility] Serum or plasma high density lipoprotein (HDL) cholesterol measurementOrdered By: Balbina Garzon on 07-20-2023 Cholesterol in HDL [Mass/Vol] 45 mg/dL 23-92 [facility] Comment on above: HDL CHOL ATP-III CLA SSIFICATION Cardiovascular RiskHDL > or equal to 60 mg/dL LOWHDL < 40 mg/dL HIGH Serum or plasma total choles terol/high density lipoprotein (HDL) cholesterol mass ratOrdered By: Balbina Garzon on 07-20-2023 Cholesterol.total/Chol esterol in HDL [Mass ratio] 4.7 {ratio} <5.0 [facility] Triglyceride [Mass/volume] i n Serum or PlasmaOrdered By: Balbina Garzon on 07-20-2023 Triglyceride [Mass/Vol] 134 mg/dL 0-149 [facility] Comment on above: TRIG ATP III CLASSIF ICATIONTRIG less than 150 mg/dL NormalTRIG 150-199 mg/dL Borderline highTRIG 200-500 mg/dL High TRIG greater than 500 mg/dL Very highStandard traceable to the Center for Disease Conrtrol and Prevention (CDC) test method. XR humerus RT*on 07-20-2023 XR humerus RT* [facility] Main [place] [address] [place] [id number] XRay Report Signed Patient: Corona Wharton MR#: [id number] 1 : 1945 Acct:[id number] Age/Sex: 78 / M ADM Date: 07/19/23 Loc: Room: [address] [place] [address] Type: ADM IN Attending Dr: Luigi Napoles [...] John Mckeon M.D.07/20/2023 7:57 PM Dictation Location: [place] [address] Transcribed By: ARCHANA 07/20/231956 Dictated By: John Mckeon DO 07/20/231956 Signed By: 07/20/231956 Normal [facility] Activated partial thrombopla stin time (aPTT) in platelet poor plasma by coagulation aOrdered By: Rubén Cardoso on 07-19-2023 aPTT Coag (PPP) [Time] 32.2 s 25.1-36.5 [facility] Comment on above: A hematocrit value g reater than 55% may lead to inaccurate results in coagulation testing. Patients having hematocrit values >55% require a special collection tube for coagulation studies. Please contact the laboratory at [phone] for redraw instructions. Alanine aminotransferase [En zymatic activity/volume] in Serum or PlasmaOrdered By: Rubén Cardoso on 07-19-2023 ALT [Catalytic activity/Vol] 14 U/L 7-52 [facility] Albumin [Mass/volume] in Ser um or Plasma by Bromocresol green (BCG) dye binding methoOrdered By: Rubén Cardoso on 07-19-2023 Albumin BCG dye [Mass/Vol] 3.8 g/dL 3.5-5.7 [facility] Alkaline phosphatase [Enzyma tic activity/volume] in Serum or PlasmaOrdered By: Rubén Cardoso on 07-19-2023 ALP [Catalytic activity/Vol] 86 U/L 34-104 [facility] Anisocytosis LM Ql (Bld)Orde red By: Rubén Cardoso on 07-19-2023 Anisocytosis Ql (Bld) [facility] Aspartate aminotransferase [ Enzymatic activity/volume] in Serum or PlasmaOrdered By: Rubén Cardoso on 07-19-2023 AST [Catalytic activity/Vol] 23 U/L 13-39 [facility] Automated erythrocytes count in urine sediment (number/area)Ordered By: Rubén Cardoso on 07-19-2023 RBC Auto (Urine sed) [#/Area] 3-4 [HPF] 0-4 [facility] Automated leukocytes count i n urine sediment (number/area)Ordered By: Rubén Cardoso on 07-19-2023 WBC Auto (Urine sed) [#/Area] 5-9 [HPF] 0-4 [facility] B-Type Natriuretic Peptideon 07-19-2023 Natriuretic peptide B (Bld) [Mass/Vol] 299.0 pg/mL High 5-100 [facility] Comment on above: Result Comment: PERF ORMED BY: [place] [address] PATHOLOGIST SEWAGE DISPOSAL WORKER FREDA ALCAZAR M.D. Performed By: #### C CIERRA, SHANICEPLUS #### [address] Bacterial blood cultureOrder ed By: Rubén Cardoso on 07-19-2023 Bacteria identified Cx Nom (Bld) NO GROWTH 5 DAYS [facility] Bacteria identified Cx Nom (Bld) NO GROWTH 5 DAYS [facility] Basophils Auto (Bld) [#/Vol] Ordered By: Rubén Cardoso on 07-19-2023 Basophils (Bld) [#/Vol] 0.0 10*3/uL 0.0-0.2 [facility] Basophils/100 WBC Auto (Bld) Ordered By: Rubén Cardoso on 07-19-2023 Basophils/100 WBC (Bld) 0.3 % . [facility] Bilirubin Test strip Ql (U)O rdered By: Rubén Cardoso on 07-19-2023 Bilirubin Ql (U) Negative Negative [facility] Bilirubin.total [Mass/volume ] in Serum or PlasmaOrdered By: Rubén Cardoso on 07-19-2023 Bilirubin [Mass/Vol] 0.5 mg/dL 0.3-1.0 [facility] COVID CepheidOrdered By: Patricia Cardoso on 07-19-2023 SARS-CoV-2 (COVID-19) Ab IA Ql Negative Negative [facility] Comment on above: This is a duplicate Cepheid Xpert Xpress CoV-2/Flu/RSV Plus RNA by RT-PCR result to be used for statistical tracking purpose only. SARS-CoV-2 (COVID-19) RNA CAROLINE+probe Ql (Unsp spec) [facility] COVID-19 / Flu A/B / RSV PCR [...] or Cepheid Disclaimer revoked sooner. PERFORMED BY: [address] [address] PATHOLOGIST SEWAGE DISPOSAL WORKER FREDA ALCAZAR M.D. Normal [facility] Comment on above: Performed By: #### G LULS #### Point of Care testing , CT head/brain wo conon 07-18 CT head/brain wo con [facility] Main [place] [address] [place] [address] Scan Report Signed Patient: Corona Wharton MR#: [id number] 1 : 1945 Acct:[id number] Age/Sex: 78 / M ADM Date: 07/19/23 Loc: ER Room: Type: [facility] ER Attending Dr: Copies to: Rubén [...] David Zeng M.D.07/19/2023 5:42 PM Dictation Location: [place] [address] Transcribed By: ARCHANA 07/19/23 174 Dictated By: David Zeng II, MD 07/19/23 1738 Signed By: 07/19/23 174 Normal [facility] Calcium [Mass/volume] in Ser um or PlasmaOrdered By: Rubén Cardoso on 07-19-2023 Calcium [Mass/Vol] 8.9 mg/dL 8.6-10.3 [facility] Carbon dioxide, total [Moles /volume] in Serum or PlasmaOrdered By: Rubén Cardoso on 07-19-2023 CO2 [Moles/Vol] 28.1 mmol/L 21.0-31.0 [facility] Cepheid COVID PCR Negativeon 07-19-2023 SARS-CoV-2 (COVID-19) RNA CAROLINE+probe Ql (Unsp spec) Negative Normal Negative [facility] Comment on above: Result Comment: This is a duplicate CepStarMaker Interactiveid Xpert Xpress CoV-2/Flu/RSV Plus RNA by RT-PCR result to be used for statistical tracking purpose only. PERFORMED BY: [facility] [address] [place] [address] PATHOLOGIST SEWAGE DISPOSAL WORKER FREDA ALCAZAR M.D. Performed By: #### G LULS #### Point of Care testing , Chloride [Moles/volume] in S erika or PlasmaOrdered By: Rubén Cardoso on 07-19-2023 Chloride [Moles/Vol] 102 mmol/L 98-107 [facility] Color Auto (U)Ordered By: Nitin Cardoso on 07-19-2023 Color (U) Yellow Yellow [facility] Comprehensive Metabolic Pane jeanna 07-19-2023 Albumin [Mass/Vol] 3.8 g/dL Normal 3.5-5.7 [facility] Comment on above: Performed By: #### C UU, ADDONUAPLUS #### [facility] [address] Albumin/Globulin [Mass ratio] 1.3 {ratio} Normal [facility] Comment on above: Performed By: #### C UU, ADDONUAPLUS #### [facility] [address] ALP [Catalytic activity/Vol] 86 U/L Normal 34-104 [facility] Comment on above: Performed By: #### C UU, ADDONUAPLUS #### [facility] [address] ALT [Catalytic activity/Vol] 14 U/L Normal 7-52 [facility] Comment on above: Performed By: #### C UU, ADDONUAPLUS #### [address] Anion gap [Moles/Vol] Not performed Normal 6.0-15.0 [facility] Comment on above: Performed By: #### C UU, ADDONUAPLUS #### [place] [address] [place] Aspartate Amino Transferase Normal 13-39 [facility] Comment on above: Result Comment: Spec imen hemolyzed, redraw requested Performed By: #### C UU, ADDONUAPLUS #### [place] [address] [place] Bilirubin [Mass/Vol] 0.5 mg/dL Normal 0.3-1.0 [facility] Comment on above: Performed By: #### C UU, ADDONUAPLUS #### [facility] [address] [place] [address] [place] Calcium [Mass/Vol] 8.9 mg/dL Normal 8.6-10.3 [facility] Comment on above: Performed By: #### C UU, ADDONUAPLUS #### [facility] [address] [place] [address] [place] Chloride [Moles/Vol] 102 mmol/L Normal 98-107 [facility] Comment on above: Performed By: #### C UU, ADDONUAPLUS #### [address] CO2 [Moles/Vol] 28.1 mmol/L Normal 21.0-31.0 [facility] Comment on above: Performed By: #### C UU, ADDONUAPLUS #### [address] Creatinine [Mass/Vol] 1.23 mg/dL Normal 0.70-1.30 [facility] Comment on above: Performed By: #### C UU, ADDONUAPLUS #### [address] Creatinine Clr Calc Pharmacy 76.94 Normal [facility] Comment on above: Performed By: #### C UU, ADDONUAPLUS #### [address] GFR/1.73 sq M.predicted MDRD (S/P/Bld) [Vol rate/Area] mL/min/{1.73_m2} Normal [facility] Comment on above: Performed By: #### C UU, ADDONUAPLUS #### [address] Globulin (S) [Mass/Vol] 3.0 g/dL Normal [facility] Comment on above: Performed By: #### C UU, ADDONUAPLUS #### [address] Glucose [Mass/Vol] 216 mg/dL High 70-100 [facility] Comment on above: Result Comment: [place] Glucose Reference Range is dependent on time and content of last meal. Glucose of more than 200 mg/dL in a nonstressed, ambulatory subject supports the diagnosis of Diabetes Mellitus. ADA recommended reference range Performed By: #### C UU, ADDONUAPLUS #### [address] Potassium Normal 3.5-5.1 [facility] Comment on above: Result Comment: Spec imen hemolyzed, redraw requested Performed By: #### C UU, ADDONUAPLUS #### [address] Protein [Mass/Vol] 6.8 g/dL Normal 6.4-8.9 [facility] Comment on above: Performed By: #### C UU, ADDONUAPLUS #### [place] [address] [place] Sodium [Moles/Vol] 136 mmol/L Normal 136-145 [facility] Comment on above: Performed By: #### C UU, ADDONUAPLUS #### [address] Urea nitrogen [Mass/Vol] 17 mg/dL Normal 7-25 [facility] Comment on above: Performed By: #### C UU, ADDONUAPLUS #### [place] [address] [place] Creatine Kinaseon 07-19-2023 CK [Catalytic activity/Vol] 132 U/L Normal 30-223 [facility] Comment on above: Performed By: #### C UU, ADDONUAPLUS #### [place] [address] [place] Creatine kinase [Enzymatic a ctivity/volume] in Serum or PlasmaOrdered By: Rubén Cardoso on 07-19-2023 CK [Catalytic activity/Vol] 132 U/L 30-223 [facility] Creatinine [Mass/volume] in Serum or PlasmaOrdered By: Rubén Cardoso on 07-19-2023 Creatinine [Mass/Vol] 1.23 mg/dL 0.70-1.30 [facility] Dipstick and Microscopicon 0 07-19-2023 Appearance (U) Clear Normal Clear [facility] Comment on above: Order Comment: Name Collection Type:: Clean-Voided Midstream Performed By: #### C UU, ADDONUAPLUS #### [place] [address] [place] Bacteria,Urine None Seen Normal None Seen [facility] Comment on above: Order Comment: Name Collection Type:: Clean-Voided Midstream Performed By: #### C UU, ADDONUAPLUS #### [address] Bilirubin,Urine Negative Normal Negative [facility] Comment on above: Order Comment: Name Collection Type:: Clean-Voided Midstream Performed By: #### C UU, ADDONUAPLUS #### [address] Color (U) Yellow Normal Yellow [facility] Comment on above: Order Comment: Name Collection Type:: Clean-Voided Midstream Performed By: #### C UU, ADDONUAPLUS #### [address] Glucose Ql (U) 500 mg/dL High Normal [facility] Comment on above: Order Comment: Name Collection Type:: Clean-Voided Midstream Performed By: #### C UU, ADDONUAPLUS #### [address] Hyaline Casts,Urine None Seen Normal 0-8 [facility] Comment on above: Order Comment: Name Collection Type:: Clean-Voided Midstream Result Comment: PERF ORMED BY: [place] [address] PATHOLOGIST SEWAGE DISPOSAL WORKER FREDA ALCAZAR M.D. Performed By: #### C UU, ADDONUAPLUS #### [address] Ketones Ql (U) Negative Normal Negative [facility] Comment on above: Order Comment: Name Collection Type:: Clean-Voided Midstream Performed By: #### C UU, ADDONUAPLUS #### [address] Leukocyte esterase Test strip Ql (U) 2+ High Negative [facility] Comment on above: Order Comment: Name Collection Type:: Clean-Voided Midstream Performed By: #### C UU, ADDONUAPLUS #### [address] Nitrite,Urine Negative Normal Negative [facility] Comment on above: Order Comment: Name Collection Type:: Clean-Voided Midstream Performed By: #### C UU, ADDONUAPLUS #### [address] Occult Blood,Urine Negative Normal Negative [facility] Comment on above: Order Comment: Name Collection Type:: Clean-Voided Midstream Result Comment: PERF ORMED BY: [place] [address] PATHOLOGIST SEWAGE DISPOSAL WORKER FREDA ALCAZAR M.D. Performed By: #### C UU, ADDONUAPLUS #### [address] pH (U) 6.5 [pH] Normal 5.0-9.0 [facility] Comment on above: Order Comment: Name Collection Type:: Clean-Voided Midstream Performed By: #### C UU, ADDONUAPLUS #### [address] Protein (U) [Mass/Vol] 300 mg/dL High Negative [facility] Comment on above: Order Comment: Name Collection Type:: Clean-Voided Midstream Performed By: #### C UU, ADDONUAPLUS #### [address] RBC,Urine 3-4 Normal 0-4 [facility] Comment on above: Order Comment: Name Collection Type:: Clean-Voided Midstream Performed By: #### C UU, ADDONUAPLUS #### [address] Specificy [place],Urine 1.015 Normal 1.001-1.03 0 [facility] Comment on above: Order Comment: Name Collection Type:: Clean-Voided Midstream Performed By: #### C UU, ADDONUAPLUS #### [address] Squamous Epithelial Cell,Urine 0-1 Normal 0-2 [facility] Comment on above: Order Comment: Name Collection Type:: Clean-Voided Midstream Performed By: #### C UU, ADDONUAPLUS #### [facility] [address] [place] [address] Urobilinogen,Urine Normal Normal Normal [facility] Comment on above: Order Comment: Name Collection Type:: Clean-Voided Midstream Performed By: #### C UU, ADDONUAPLUS #### [facility] [address] [place] [address] WBC,Urine 5-9 High 0-4 [facility] Comment on above: Order Comment: Name Collection Type:: Clean-Voided Midstream Performed By: #### C UU, ADDONUAPLUS #### [address] ECG 12 lead ECGon 07-19-2023 ECG 12 lead ECG [facility] Main [place] [address] [place] [address] Electrocardiograph Report Signed Patient: Corona Wharton MR#: [id number] 1 : 1945 Acct:[id number] Age/Sex: 78 / M ADM Date: 07/19/23 Loc: Room: [address] [place] [address] Type: ADM IN Attending Dr: Balbina [place]zon [...] Bifascicular block Confirmed by Rubén CARDOSO DO ([id number]) on 07/19/2023 10:26:57 PM Referred By: Electronically Signed By:Rubén CARDOSO DO Transcribed By: MUS Signed By Rubén Cardoso DO 0 07/19/232226 Normal [facility] Eosinophils Auto (Bld) [#/Vo l]Ordered By: Rubén Cardoso on 07-19-2023 Eosinophils (Bld) [#/Vol] 0.3 10*3/uL 0.0-0.45 [facility] Eosinophils/100 WBC Auto (Bl d)Ordered By: Rubén Cardoso on 07-19-2023 Eosinophils/100 WBC (Bld) 2.5 % . [facility] Erythrocyte distribution wid th Auto (RBC) [Ratio]Ordered By: Rubén Cardoso on 07-19-2023 Erythrocyte distribution width (RBC) [Ratio] 15.0 % 12.0-14.8 [facility] Globulin Calc (S) [Mass/Vol] Ordered By: Rubén Cardoso on 07-19-2023 Globulin (S) [Mass/Vol] 3.0 g/dL [facility] Glucose [Mass/volume] in Ser um or PlasmaOrdered By: Rubén Cardoso on 07-19-2023 Glucose [Mass/Vol] 216 mg/dL 70-100 [facility] Comment on above: ADA recommended refe rence rangeRandom Glucose Reference Range is dependent on time and content of last meal. Glucose of more than 200 mg/dL in a nonstressed, ambulatory subject supports the diagnosis of Diabetes Mellitus. Hematocrit Auto (Bld) [Volum e fraction]Ordered By: Rubén Cardoso on 07-19-2023 Hematocrit (Bld) [Volume fraction] 44.5 % 38.8-50.0 [facility] Hemoglobin [Mass/volume] in BloodOrdered By: Rubén Cardoso on 07-19-2023 Hemoglobin (Bld) [Mass/Vol] 13.6 g/dL 13.0-17.0 [facility] INR in Platelet poor plasma by Coagulation assayOrdered By: Rubén Cardoso on 07-19-2023 INR Coag (PPP) [Relative time] 1.0 {INR} [facility] Comment on above: INR Therapeutic Rang e [...] 07-19-2023 Ketones (U) [Mass/Vol] Negative Negative Fi [facility] Laboratory - Chemistry and C hemistry - challengeOrdered By: Rubén Cardoso on 07-19-2023 CO2 [Moles/Vol] 27.2 mmol/L 24.0-29.0 [facility] HCO3 (Bld) [Moles/Vol] 26.0 mmol/L 23.0-29.0 [facility] - UrinalysisOrder ed By: Rubén Cardoso on 07-19-2023 Hyaline casts LM Ql (Urine sed) None seen [LPF] 0-8 [facility] Lactate [Moles/volume] in Se rum or PlasmaOrdered By: Rubén Cardoso on 07-19-2023 Lactate [Moles/Vol] 1.0 mmol/L 0.5-2.2 [facility] Leukocytes [#/volume] correc marina for nucleated erythrocytes in Blood by Automated counOrdered By: Rubén Cardoso on 07-19-2023 WBC corrected for nucl RBC Auto (Bld) [#/Vol] 13.4 10*3/uL 4.1-10.5 [facility] Lymphocytes Auto (Bld) [#/Vo l]Ordered By: Rubén Cardoso on 07-19-2023 Lymphocytes (Bld) [#/Vol] 1.9 10*3/uL 1.00-4.8 [facility] Lymphocytes/100 WBC Auto (Bl d)Ordered By: Rubén Cardoso on 07-19-2023 Lymphocytes/100 WBC (Bld) 14.4 % . [facility] MCH Auto (RBC) [Entitic mass ]Ordered By: Rubén Cardoso on 07-19-2023 MCH (RBC) [Entitic mass] 26.0 pg 27.5-35.2 [facility] MCHC Auto (RBC) [Mass/Vol]Or dered By: Rubén Cardoso on 07-19-2023 MCHC (RBC) [Mass/Vol] 30.5 g/dL 32.5-35.6 [facility] MCV Auto (RBC) [Entitic vol] Ordered By: Rubén Cardoso on 04-04-2024 MCV (RBC) [Entitic vol] 85.3 fL 83.5-101 [facility] Magnesiumon 07-19-2023 Magnesium [Mass/Vol] 1.8 mg/dL Low 1.9-2.7 [facility] Comment on above: Result Comment: PERF ORMED BY: [facility] [address] [place] [address] PATHOLOGIST [employer]AL WORKER FREDA ALCAZAR M.D. Performed By: #### C UU, ADDONUAERIN #### [address] Magnesium [Mass/volume] in S erika or PlasmaOrdered By: Rubén Cardoso on 07-19-2023 Magnesium [Mass/Vol] 1.8 mg/dL 1.9-2.7 [facility] Microcytes LM Ql (Bld)Ordere d By: Rubén Cardoso on 07-19-2023 Microcytes Ql (Bld) Slight [facility] Monocyte distribution width [Entitic volume] in Blood by AutomatedOrdered By: Rubén Cardoso on 07-19-2023 Monocyte distribution width Auto (Bld) [Entitic vol] 22.44 % 0.00-20.00 [facility] Comment on above: For adults in ED, MD W > 20.0 may be associated with a higher risk of sepsis during the first 12 hrs of hospital admission Monocytes Auto (Bld) [#/Vol] Ordered By: Rubén Cardoso on 07-19-2023 Monocytes (Bld) [#/Vol] 0.8 10*3/uL 0.0-0.8 [facility] Monocytes/100 WBC Auto (Bld) Ordered By: Rubén Cardoso on 07-19-2023 Monocytes/100 WBC (Bld) 6.0 % . [facility] Natriuretic peptide B [Mass/ Vol]Ordered By: Rubén Cardoso on 07-19-2023 Natriuretic peptide B (Bld) [Mass/Vol] 299.0 pg/mL 5-100 [facility] Neutrophils Auto (Bld) [#/Vo l]Ordered By: Rubén Cardoso on 07-19-2023 Neutrophils (Bld) [#/Vol] 10.3 10*3/uL 1.8-7.7 [facility] Neutrophils/100 WBC Auto (Bl d)Ordered By: Rubén Cardoso on 07-19-2023 Neutrophils/100 WBC (Bld) 76.8 % . [facility] Nitrite Test strip Ql (U)Ord ered By: Rubén Cardoso on 07-19-2023 Nitrite Ql (U) Negative Negative [facility] No Panel InformationOrdered By: Rubén Cardoso on 07-19-2023 Blood Gas Critical Value See comment [facility] Comment on above: Critical Value negro d on: 07/19/2023 at 16:54 Blood Gas Sample Site Venous Fir [facility] FiO2 28 % [facility] Oxygen Delivery Device Nasal cannula [facility] Venous Blood Base Excess 1.9 mmol/L -3.0-3.0 [facility] Venous Blood Oxygen Content 8.5 mmol/L 6.6-9.7 [facility] Venous Blood Oxygen Saturation 95.8 % 73.0-76.0 [facility] Venous Blood Partial Pressure CO2 39.4 mm[Hg] 38.0-50.0 [facility] Venous Blood Partial Pressure O2 77.5 mm[Hg] 35.0-45.0 [facility] Venous Blood pH 7.44 7.32-7.43 [facility] Estimated GFR (CKD-EPI) > 60.0 mL/Min [facility] Creatinine Clearance (Chem 76.94 [facility] Nucleated erythrocytes [Pres ence] in Blood by Automated countOrdered By: Rubén Cardoso on 07-19-2023 Nucleated RBC Auto Ql (Bld) 0.2 /100{WBC} 0-0.5 [facility] Partial Thromboplastin Timeo n 07-19-2023 aPTT Coag (Bld) [Time] 32.2 s Normal 25.1-36.5 [facility] Comment on above: Result Comment: A he matocrit value greater than 55% may lead to inaccurate results in coagulation testing. Patients having hematocrit values >55% require a special collection tube for coagulation studies. Please contact the laboratory at [phone] for redraw instructions. PERFORMED BY: [facility] [place] [place] [address] PATHOLOGIST [employer]POSAL WORKER FREDA ALCAZAR M.D. Performed By: #### C UU, ADDLORIUAPLUS #### [address] Platelet adequacy [Presence] in Blood by Light microscopyOrdered By: Rubén Cardoso on 07-19-2023 Platelets LM Ql (Bld) Normal Normal [facility] Platelet mean volume Auto (B ld) [Entitic vol]Ordered By: Rubén Cardoso on 07-19-2023 Platelet mean volume (Bld) [Entitic vol] 8.1 fL 6.6-10.1 [facility] Platelet morphology finding [Identifier] in BloodOrdered By: Rubén Cardoso on 07-19-2023 Platelet morphology finding Nom (Bld) Normal Normal [facility] Platelets Auto (Bld) [#/Vol] Ordered By: Rubén Cardoso on 07-19-2023 Platelets (Bld) [#/Vol] 297 10*3/uL 150-450 [facility] Polychromasia [Presence] in Blood by Light microscopyOrdered By: Rubén Cardoso on 07-19-2023 Polychromasia LM Ql (Bld) Slight [facility] Potassium [Moles/volume] in Serum or PlasmaOrdered By: Rubén Cardoso on 07-19-2023 Potassium [Moles/Vol] 4.1 mmol/L 3.5-5.1 [facility] Protein Auto test strip (U) [Mass/Vol]Ordered By: Rubén Cardoso on 07-19-2023 Protein (U) [Mass/Vol] 300 mg/dL Negative [facility] Protein [Mass/volume] in Ser um or PlasmaOrdered By: Rubén Cardoso on 07-19-2023 Protein [Mass/Vol] 6.8 g/dL 6.4-8.9 [facility] Prothrombin Time INRon 07-18 INR Coag (PPP) [Relative time] 1.0 {INR} Normal [facility] Comment on above: Result Comment: [...] valves: 3 - 4.5 Performed By: #### C UU, ADDONUAPLUS #### [address] PT Coag (PPP) [Time] 11.9 s Normal 9.0-12.9 [facility] Comment on above: Result Comment: A he matocrit value greater than 55% may lead to inaccurate results in coagulation testing. Patients having hematocrit values >55% require a special collection tube for coagulation studies. Please contact the laboratory at [phone] for redraw instructions. Performed By: #### C UU, ADDONUAPLUS #### [place] [id number] [facility] Prothrombin time (PT)Ordered By: Rubén Cardoso on 07-19-2023 PT Coag (PPP) [Time] 11.9 s 9.0-12.9 [facility] Comment on above: A hematocrit value g reater than 55% may lead to inaccurate results in coagulation testing. Patients having hematocrit values >55% require a special collection tube for coagulation studies. Please contact the laboratory at [phone] for redraw instructions. RBC Auto (Bld) [#/Vol]Ordere d By: Rubén Cardoso on 07-19-2023 RBC (Bld) [#/Vol] 5.21 10*6/uL 3.90-5.60 [facility] RBC morphologyOrdered By: Nitin Cardoso on 07-19-2023 RBC morphology finding Nom (Bld) N/A [facility] Redraw Camron 07-19-2023 AST [Catalytic activity/Vol] 23 U/L Normal 13-39 [facility] Comment on above: Result Comment: PERF ORMED BY: [place] [address] PATHOLOGIST [employer]AGE [employer]POSAL WORKER FREDA ALCAZAR M.D. Performed By: #### C UBLD, LACTIC #### [address] Redraw Potassiumon Potassium [Moles/Vol] 4.1 mmol/L Normal 3.5-5.1 [facility] Comment on above: Performed By: #### C UBLD, LACTIC #### [address] Scan and CBCon 07-19-2023 Anisocytosis Ql (Bld) Slight Normal [facility] Comment on above: Performed By: #### S CAN CBC #### [address] Basophils (Bld) [#/Vol] 0.0 10*3/uL Normal 0.0-0.2 [facility] Comment on above: Performed By: #### S CAN CBC #### [address] Basophils/100 WBC (Bld) 0.3 % Normal . [facility] Comment on above: Performed By: #### S CAN CBC #### [address] Eosinophils (Bld) [#/Vol] 0.3 10*3/uL Normal 0.0-0.45 [facility] Comment on above: Performed By: #### S CAN CBC #### [address] Eosinophils/100 WBC (Bld) 2.5 % Normal . [facility] Comment on above: Performed By: #### S CAN CBC #### [address] Erythrocyte distribution width (RBC) [Ratio] 15.0 % High 12.0-14.8 [facility] Comment on above: Performed By: #### S CAN CBC #### [address] Hematocrit (Bld) [Volume fraction] 44.5 % Normal 38.8-50.0 [facility] Comment on above: Performed By: #### S CAN CBC #### [address] Hemoglobin (Bld) [Mass/Vol] 13.6 g/dL Normal 13.0-17.0 [facility] Comment on above: Performed By: #### S CAN CBC #### [address] Lymphocytes (Bld) [#/Vol] 1.9 10*3/uL Normal 1.00-4.8 [facility] Comment on above: Performed By: #### S CAN CBC #### [address] Lymphocytes/100 WBC (Bld) 14.4 % Normal . [facility] Comment on above: Performed By: #### S CAN CBC #### [address] MCH (RBC) [Entitic mass] 26.0 pg Low 27.5-35.2 [facility] Comment on above: Performed By: #### S CAN CBC #### [address] MCV (RBC) [Entitic vol] 85.3 fL Normal 83.5-101 [facility] Comment on above: Performed By: #### S CAN CBC #### [address] Mean Corpuscular HGB Conc 30.5 g/dL Low 32.5-35.6 [facility] Comment on above: Performed By: #### S CAN CBC #### [address] Microcytosis Slight Normal [facility] Comment on above: Performed By: #### S CAN CBC #### [address] Monocytes (Bld) [#/Vol] 0.8 10*3/uL Normal 0.0-0.8 [facility] Comment on above: Performed By: #### S CAN CBC #### [address] Monocytes/100 WBC (Bld) 22.44 % High 0.00-20.00 [facility] Comment on above: Result Comment: For adults in ED, MDW > 20.0 may be associated with a higher risk of sepsis during the first 12 hrs of hospital admission Performed By: #### S CAN CBC #### [address] Monocytes/100 WBC (Bld) 6.0 % Normal . [facility] Comment on above: Performed By: #### S CAN CBC #### [address] Neutrophils (Bld) [#/Vol] 10.3 10*3/uL High 1.8-7.7 [facility] Comment on above: Performed By: #### S CAN CBC #### [address] Neutrophils/100 WBC (Bld) 76.8 % Normal . [facility] Comment on above: Performed By: #### S CAN CBC #### [address] NRBC% 0.2 /100{WBC} Normal 0-0.5 [facility] Comment on above: Performed By: #### S CAN CBC #### [address] Platelet Estimate Normal Normal Normal [facility] Comment on above: Performed By: #### S CAN CBC #### [address] Platelet mean volume (Bld) [Entitic vol] 8.1 fL Normal 6.6-10.1 [facility] Comment on above: Performed By: #### S CAN CBC #### [address] Platelet Morphology Normal Normal Normal [facility] Comment on above: Result Comment: PERF ORMED BY: [place] [address] PATHOLOGIST [employer]POS[employer] WORKER FREDA ALCAZAR M.D. Performed By: #### S CAN CBC #### [place] [address] [place] Platelets (Bld) [#/Vol] 297 10*3/uL Normal 150-450 [facility] Comment on above: Performed By: #### S CAN CBC #### [facility] [address] Polychromasia Slight Normal [facility] Comment on above: Performed By: #### S CAN CBC #### [facility] [address] RBC (Bld) [#/Vol] 5.21 10*6/uL Normal 3.90-5.60 [facility] Comment on above: Performed By: #### S CAN CBC #### [facility] [address] WBC (Bld) [#/Vol] 13.4 10*3/uL High 4.1-10.5 [facility] Comment on above: Performed By: #### S CAN CBC #### [address] Serum or plasma albumin/glob ulin mass ratioOrdered By: Rubén Cardoso on 07-19-2023 Albumin/Globulin [Mass ratio] 1.3 {ratio} [facility] Serum or plasma anion gap de terminationOrdered By: Rubén Cardoso on 07-19-2023 Anion gap [Moles/Vol] [facility] Comment on above: Test not performed Sodium [Moles/volume] in Ser um or PlasmaOrdered By: Rubén Cardoso on 07-19-2023 Sodium [Moles/Vol] 136 mmol/L 136-145 [facility] Specific gravity Auto test s trip (U) [Rel density]Ordered By: Rubén Cardoso on 07-19-2023 Specific gravity (U) [Rel density] 1.015 1.001-1.03 0 [facility] Squamous epithelial cells de tection in urine sediment by light microscopyOrdered By: Rubén Cardoso on 07-19-2023 Epithelial cells.squamous LM Ql (Urine sed) 0-1 [HPF] 0-2 [facility] Troponin I High Sensitivityo n 07-19-2023 Troponin I High Sensitivity 26.2 pg/mL High 0.0-20.0 [facility] Comment on above: Result Comment: PERF ORMED BY: [place] [address] PATHOLOGIST [employer]AGE [employer]POSAL WORKER FREDA ALCAZAR M.D. Performed By: #### C UU, ADDONUAPLUS #### [facility] [address] [place] [address] Troponin I High Sensitivity 25.9 pg/mL High 0.0-20.0 [facility] Comment on above: Result Comment: PERF ORMED BY: [place] [address] PATHOLOGIST SEWAGE DISPOSAL WORKER FREDA ALCAZAR M.D. Performed By: #### C UU, ADDONUAPLUS #### [facility] [address] [place] [address] Troponin I.cardiac [Mass/vol ume] in Serum or Plasma by Detection limit <= 0.01 ng/Ordered By: Rubén Cardoso on 07-19-2023 Troponin I.cardiac DL <= 0.01 ng/mL [Mass/Vol] 26.2 pg/mL 0.0-20.0 [facility] Urea nitrogen [Mass/volume] in Serum or PlasmaOrdered By: Rubén Cardoso on 07-19-2023 Urea nitrogen [Mass/Vol] 17 mg/dL 7-25 [facility] Urine Cultureon 07-19-2023 Bacteria identified Cx Nom (U) 25,000 colonies/ml mixed bacterial skin contaminants 2 Days PERFORMED BY: [place] [address] PATHOLOGIST SEWAGE DISPOSAL WORKER FREDA ALCAZAR M.D. Normal [facility] Comment on above: Performed By: #### C UU, ADDONUAPLUS #### [facility] [address] [place] [address] Urine bacteria detection by automated methodOrdered By: Rubén Cardoso on 07-19-2023 Bacteria Auto Ql (U) None seen None Seen [facility] Urine clarity by refractomet ry automatedOrdered By: Rubén Cardoso on 07-19-2023 Clarity Refractometry automated (U) Clear Clear [facility] Urine culture routineOrdered By: Rubén Cardoso on 07-19-2023 Bacteria identified Cx Nom (U) 2 Days [facility] Urine glucose measurement by automated test strip (mass/volume)Ordered By: Rubén Walker on 07-19-2023 Glucose Auto test strip (U) [Mass/Vol] 500 mg/dL Normal [facility] Urine hemoglobin detection b y automated test stripOrdered By: Rubén Cardoso on 07-19-2023 Hemoglobin Auto test strip Ql (U) Negative Negative [facility] Urine leukocyte esterase det ection by automated test stripOrdered By: Rubén Cardoso on 07-19-2023 Leukocyte esterase Auto test strip Ql (U) 2+ Negative [facility] Urobilinogen Auto test strip (U) [Mass/Vol]Ordered By: Rubén Cardoso on 07-19-2023 Urobilinogen (U) [Mass/Vol] Normal mg/dL Normal [facility] Venous Blood Gason CO2 [Moles/Vol] 27.2 mmol/L Normal 24.0-29.0 [facility] Comment on above: Performed By: #### C UU, ADDONUAPLUS #### [address] HCO3 (Bld) [Moles/Vol] 26.0 mmol/L Normal 23.0-29.0 [facility] Comment on above: Performed By: #### C UU, ADDONUAPLUS #### [address] Oxygen Device Nasal Cannula Normal [facility] Comment on above: Performed By: #### C UU, ADDONUAPLUS #### [address] Respiratory Critical Normal [facility] Comment on above: Result Comment: Crit ical Value called on: 07/19/2023 at 16:54 PERFORMED BY: [place] [address] PATHOLOGIST SEWAGE DISPOSAL WORKER FREDA ALCAZAR M.D. Performed By: #### C UU, ADDONUAPLUS #### [address] VBG Base Excess 1.9 mmol/L Normal -3.0-3.0 [facility] Comment on above: Performed By: #### C UU, ADDONUAPLUS #### [address] VBG Draw Site Venous Normal [facility] Comment on above: Performed By: #### C UU, ADDONUAPLUS #### [address] VBG Frac Inspired O2 28 % Normal [facility] Comment on above: Performed By: #### C UU, ADDONUAPLUS #### [address] VBG O2 Content 8.5 mmol/L Normal 6.6-9.7 [facility] Comment on above: Performed By: #### C UU, ADDONUAPLUS #### [address] VBG Oxygen Saturation 95.8 % Off scale high 73.0-76.0 [facility] Comment on above: Performed By: #### C UU, ADDONUAPLUS #### [address] VBG PCO2 39.4 mm[Hg] Normal 38.0-50.0 [facility] Comment on above: Performed By: #### C UU, ADDONUAPLUS #### [address] VBG PH Venous PH 7.44 High 7.32-7.43 [facility] Comment on above: Performed By: #### C UU, ADDONUAPLUS #### [address] VBG PO2 77.5 mm[Hg] High 35.0-45.0 [facility] Comment on above: Performed By: #### C UU, ADDONUAPLUS #### [address] WBC Auto (Bld) [#/Vol]Ordere d By: Rubén Cardoso on 07-19-2023 WBC (Bld) [#/Vol] 13.4 10*3/uL 4.1-10.5 [facility] XR chest 2V*on 07-19-2023 XR chest 2V* [facility] Main [place] [address] [place] [id number] XRay Report Signed Patient: Corona Wharton MR#: [id number] 1 : 1945 Acct:[id number] Age/Sex: 78 / M ADM Date: 07/19/23 Loc: ER Room: Type: [facility] ER Attending Dr: Copies to: Rubén [...] David Zeng M.D.07/19/2023 5:37 PM Dictation Location: [place] [address] Transcribed By: [facility] 07/19/231736 Dictated By: David Zeng II, MD 07/19/231735 Signed By: 07/19/231736 Normal [facility] pH Auto test strip (U)Ordere d By: Rubén Cardoso on 07-19-2023 pH (U) 6.5 [pH] 5.0-9.0 [facility] EMS Documentationon 08-09-19 EMS Documentation Please click on link to see report [id number] 5OIUvVtEERaVhcCXFevY62wnTK udHNbMTMxMCAwIFIgMTIyMCAwI FIgMiAw IFIgMTIyMSAwIFIgMTMxMSAwIF JzT2Ubx9ULw9raHM1lNDZvIEK7 LKSvXFJ9XAJvYA1iH5GbjYYr TGC1KaQyUGNwHUMoEHI7ULEuZJ MeGSQbtZRXe9bpEZ2qWZYrRGW4 EPTeHMW7YWMuKF1eEXsxBS0i Q8DszoJjlRGaGAOmTGWkKs2DBF HybOYuUNK9HT1Np4ktevNjQMQb RUaxL2PcVDJkSJejKQIAZr2c Hf8chKf2Z5WOBYMrZSK8EZVbYr 6XWSQmVQX5RaKcQAKkAUNnBINo QCTmXl9QVVLuENKrTFUHWq5m NEGqE8LamJmoERGWH0RxuFYkW3 R0dSxLaAE0EARlBcE2JPWkXz5Q G2EbKUO7PBLqRLecMJVPNb7a Yp31VKGbMORlR6CinFU3VFHaSL 01dtH8I6L4pLIbGJDbSL1RDVWc L1M+LqwokzDiTjlUMoTlZT6g ent2OJ1BHG1kgVjvNqV1UIL+Pn A7zfZfaGgkJ8YeBUDnNWVuDSHi ilbmQDI0ETRwXThwSeb1EL20 PZKjdkHAHapfNOMoM09PVLCcVq CkRnd8IAR6CjSbWI22YWZrLWft YcGlRK8iCFK8ZLRbHkRfFJqa Fpt5SV2pLqj2KKJvEcVNUimpJp T8BXjzFq03TTXyQBWwSgOyLEUn VyKmgdFTVob8KDUcTiHnYeVx JAEtKeKjXDJiquRUKtrmUAD3QS HpHE53JMB5BMIbTFhhCkAqKN7y CMY3QXTqUI97BOW6WMLnSAoe RuMrNX9hSXD0XREaAM36IRW2NR PeJKyvIvP3Lj8oFXB9FFSiBC85 NTEgNTQgcmUKZgozOTMuMjUg OrIiNUDaOoAvBMM8BOQkShKDTY VbDiq6Lpf7MCX6QaJaZE53KBBw EXurHjNnBVV4FBI6JmHbRTMc FiHvmaUKPebdANA9XQfaKtFhLJ 45FXMiPAOsLzFgybXGOmq2VBVk SbVqKfu0Xmm7LTNlMvFyICMe ML77WVEdIjMEAD64BNzsHSFuzb biGD21VQA3ELelFEz1KnVdPWSf CUThByPDMUHpp6HoMsEsIxz0 AMO4Pg85IVS6SyTnZBJjMY63US CvZRkiYuAxDUY2BT7uRLO5DiLa WWVbIqNcczRTHztmGRS6EuEp KBf3GO7rXly0YBGhIrTGICXjZE I4UwM5TKBqPeJpHWN0RFDbJtDW ZEr8XfZ4BOK6PT3lSJBbHwb2 BE89QIGcPFghTyUtEDN3CCLgJ6 0FZMBmVdAhVOQ2LvFgFbm9CvA8 SX2gNmYsESvmKvLvRFTiqunc ZE51UKP4SWivDyEiAyc7RcJ6EA 8bSdj3IPByRiVFBM30RLkgLCBx asloLOxpTMN9WxEnEkl2KlZ5 ZM2dUrFvCFyrXnSyREDbkynvPZ viAKM3FkE2HJZ9Ic7cVTQiAE28 ZMSkCVsmOiGgSBRcSJ6jHZW8 PhZeISPyQwGqoxNIBgdmVRO8HB VpFGH9WpYeIFUrVxVdpgKANuxe NZX5VhGlLhMtAD28ALYxKarq BIZnUQagVyO2DK5yJYW1RnCnUp BiGT96LTNqCfmiKMGqGVczUmXc XLH7GEBmL21MLBHhScErGNBz MbNlRAi6GdMkTUSuQGOrKkVFMB Lhu1IpStQeTrl0JNDrFk1dWDV6 NxOlUSEjTU44FSPcJWjyKwGp AvA2JHOlCYU7Ghp5WO3uSph9NN RbTmYYJMO8JCG2FA8gUOSmUMHn YgWdRENbYfQvlpEGGdp1Ccgk KOGwHELfVwOtRBH4VsPqleHQQl i1OPJzADNzLOAtNmHyPYM2UpJv upFVYigwEujtNTFfk5EuQaTa Qd38YHG7KVjwJbFhBFH7XwZ1SV 5eKvLtDYcqMgPjWTZvacr5Vstc JaMlABe3KYR8GQ9gLPMxWW32 HZVxRGceKmPcVDC7HH91LYX3Pw FcOFCiIsOtmoBTWfopEUX1YZWy SKe5LV4xYjw4FELoNxWJDOEr JUF9Nrz5RLTmWmSoTOB7MtTjtu IMAbl3WKNeYpRmUCG6Vub1TFFe NmPpHWW9KyIjjnSYAepgNfxt DTLac9JbQnMaApp0PHK4GQD8Fr XgMWToXPLyocCIMekcTXUaZ38M SAHaTfKnRBEgIer1AZH3CE53 KA4gRip3QBDzHlSXSHZlSODqQo D8CTI5PqKnTR39YFIdTSvkHrVr DAX2JM31XTN0TsUpXMWzNzHf awGJKqyqQFF2ELBuReMcDP49YI EvHwVzNsBvixWUDnf9QQZpVqFb JCEhFrA2MAJrCxIiGXWpZoQ1 PQPlNzBEEN49SMaoUCXubgtcUQ 38NBS0IQPrLIP6OaMuBHOeWKBq qlUVVitmDKUwA05BBBFmTaSk Nhb9TaO7RDC5OL41YZ5sBla3SK UsSgFJIEUjMrIqAgB7LQN4KjYe WC04ZAJvMUfqSbZzMVTbDM98 GFL3AgRqAM24TIVzPCzjVmWcNF I9JS7nQJXqHvp9WR01Yt82EGUw ErMNXAq1JbR5EXP3RN9gPOKy Buo9YQ42Sk20NXVxQmONKY33JM vqGMHevcnuFX36MNYhOZlfYBH1 NzQuNSAtMTIgcmUKZgowICBz G90DYILhXjHmGzN2RlT3NNJ6NG 69UU1wVhe2GZGcIsMUUS47KUzz IHNjbgoxNiAyOTQgNTYzLjI1 CO3cLT05TLQtElEABSGgv1ZyLp G8IKF2Js42OSC6Qae0QZ50OC10 HGZfIeUFNF22PHjfWNEcvywv EpQmGGEiNIYyNu85NYKsQBDnNA NeHLrdXtAfRIKwydy4Cs70DZZg KLFdYCI8Uh95BZEoReMnIsWm hvQKOirtZtbhJQAjf2KoZcNlAo z3QHB9Pz76QPVwPzv8YU3xQH8o GLBkGDlyFxFjMNWjotb8DM77 WMN9Er07YHFtStV1UF7zGM3hIL DhUQbeCzYrKGL0XRAuO93KSBNn AXNsRONvJPMxZT7rHXVvIdZi WsGhpdWYMbrtPYDeN58SHHW0Tb j3LHB4Kw60WOC5FuYzCQAlNmU7 OJTzPlNLDL78KXssUFBhsrxu MTUuNzUgMjgzLjUgNDkuNSAtMj NyKtHwhnHFTsnoJSNqI01TUTV6 TgV1MZS6Cj24SHE6FqShWKOe XhC9SSTqBfFGAG62HOsxHWYvdp oxNjUuMjUgMjgzLjUgMjguNSAt LuTbEaRfnsXUKhomVZQlU81Y VWwmWfx2XKF1Vk44BYYkTO5oFE 8pHRBbEWnoXxLmRDF0GKClU84M PWviIhc0RMK6Vi74BHDrJC3d UW9wYUWhIJcmHkPdLWNziedfAt UuNzUgMjgzLjUgMjUuNSAtMjAu YyTcizDIEmzhQglfZXRzo1Hq GnUfQC08DSVgRDIqQAEvUQ97PP 0iWY1eFTKkTOxyZmUqAHSevdrc NjEuMjUgMjgzLjUgNjguMjUg XVJyMcA2GWAeIuUPKG00GFtfAJ NjbgoyNjEuMjUgMjgzLjUgNjgu MqRmIDTkQoN6UBGxOoZUMIRx s3HwQcPlRH42JDT7Yd02JHBsIt H0DF4cVP8eLBMtEBdyLcZgGOU3 KVEuB20BEcF4CfYfNdncIeEo ONKvDxMeANUxInH6MNBiJvFIYV Tmy6EtSbE0Xy43TDZuRPFqDWZz Rd72PSMcNhJhDvPaghIDLfai RlshKMGmt2LpSuD6Kf81PPSlZD RzIVHrHb61CMRvZnTtNaVhybOB PgcqQTPzJ14RYYR3EpVbZefp RtUpTrUfAiScOMPaXgT9CRStGn VARD04TFnbLHExool9ZGdfZTSm MBAkPIXtPc0mYGWsCiNeSmRa qcBLMxapTPLyS17NWUHlTym7HR M0Sf48FOT9BgTlWOOqHxI0BSZp OnUWTA04EYzzJVXwrun6WCAm NzUgMjgzLjUgMjguNSAtMjAuMj ZynpVVPuxcQTKlQ33NGOveNsG6 KZW1Qp41LXX3FU3tWH6fCIAr PXhtYuTdCTD8DBZuT84PZWykQr U4UKC6Hr17JDA1XL6lSH6aENGv RXwfTmIgUCHhllg7LDgdHkAo MjgzLjUgMjUuNSAtMjAuMjUgcm OFWphtDfktVDMct7ChYdMgVV8v BQHpOTNbYBElTC38DE9eML6c RPKxOFiaKdVhLZKigpk7GRUoVw UgMjgzLjUgMjUuNSAtMjAuMjUg crUHOeihOzbmARMez5FzKdK2 UM24VXGrQROyWWIyFZ41NK0dWC 2tNGNfGOdoKoZpREFvhdy6QpBd MjUgMjgzLjUgOSAtMjAuMjUg qgWGVxdaOqpeOMVjc5UyIoX8HN 8tTOHoQJJjDUR9XF4pYS5fZWLa LPevAqMjRZLxuir8Tc84ZGHf RcCdErMtWJKhHjTxODDyNnL2JI CvRlUEHZ49FTxwJYRavrp6Kx05 NSAyNjMuMjUgNDIuNzUgLTIw NiA6EXLkSzPTXVSaj5VtVbg8Iq IaMtBzOvJ8HKZqOfY0UJ3lZJ2c ONPiSBazAeFnVSX0WPHnN85O OTUuNSAyNjMuMjUgMjAuMjUgLT ZgRiA8YYWuPpINHBTuz3HjRqPz GN32QMEnGlCbJcTwBEtqCUQb MjAuMjUgcmUKZgowLjkxOCAgc2 GmUmFjKF73OKSoBlEcNxMpCAzp NSAtMjAuMjUgcmUKZgoxICBz P93CABJ6GnX3OIA6Tn1oYMXdJL 79HD8nUO3fBGJdIXneUzWfBUI1 ICBz (more content not included)... Normal [facility] Coding Summary.on 07-14-2022 Coding Summary. CD:[id number] Ww+PGh lYWQ+HF6MQFSdN09syUNqoV6rD 0NMTElOSywgQVBQTElOSyIgbmF vMY2mcZTtYXCj IC8+NA8qQHKpVjnkbNJht9M3wU U4Z95syg8oWKbaeOA6DVKxBvHc ptlza9anuRm0NMklNtxrTzNx AABytT45FZO3hG45Ks09lZZyfM Awy4aznEf3XhJeFFVqMCE4kMyu KSbvl9HnTQZrQ19wrWRsk2Y8 LNTqbGkrhWRqFhYcrBK0nT3kFF vhoxhkj6mxsodoEph2vm72lEMn t0O5eCQ3S0GgpuT9WYShjIXq ScbclURMyM0yldznz1nuueztVt YuDWCuHPd4BHk5WIWmcWfvPsRf HN09ZBV0WOCzkqHjS5DbGZXc pPmpHuO3u3U5Ye3CA0PRVotxH4 VNTUFSWTwvdGQ+HA22pu74I9Bp CupcOpk3IUXsBEY9lWV1oF4q FHVoHHavj9X7hLB9N0YgagWvaj 0nx6mvTDCvPBhhO23ksJZcp7W8 UMSjeMJ6QRSbhNydRrKpkF62 Oyc+DCVrgPytt2SkBxevg9pag4 mbbKg2MhnqOBNpawZmuHcsGXL5 q1QxPs0fDTMrxDV0yZY4mW7q LySlFdJ7GYweF484UpDkhEEvMt vtX21yP9ByvJJ+KOJaQfs3BASn yQbhPJ5rH2LjXDQjshbeqKKa xTgdXS8vKTCllzrvKBZdqJ6iTV CdI4w5FzDzMuV3HJqsQ6XlUWPc bctsFb13gU0yBzDzEkF4ZXdv N3OydgH2XIZruISnNIxoPSD3R2 3tj8J7YKEvNASvSHI2dHL2mE5m bGlnbjogbGVmdDsgdmVydGlj QDvkXJxpI899RUGkuHyjVyHwIK luZyBEYXRlOiAgMDMvMzEvMjAy MzwvdGQ+XHGzEFX3wTbuZKKc wZAvSKuhYj8fwGuypChiLL6wIM FhlywfIPHpoT0mQWAghEOewUko OM2pIMHhleduq561RwNpHHX5 FYFsfNXgN0AapW7tJaWxIUWeSB DqS3UhqJUrLDwxC635DTjjKuR2 LSVxciXqV8QuRZTpuQrwOjV1 o7O7Fh2In8TeinrkH6LapUIiAb QhTdllZNb1M1VdAjhcwKE+PC90 PUVzZU95IWa2QYK6kBjtTWgv MLYyY5TusD4iQuOyJCFxNGRsXp c+PHRhYmxlIHdpZHRoPScxMDAl KtGijKzmQC1mAf3bAEEpADPf wAxvuVJhKbNtu8ifNIEoXWoyAQ 2tlSwdM8JqfUR4EXSuw8y4Af40 [id number]+DVUwwOK3iTJ6 mT1kDuGqXnE4INltH416UbTjeO IaCfvoi8loa2fhwKk4AiQ7WTNr lcXhlWouNRQ7a8ZeXv94Y38q IHdpZHRoPSIxNSUiIHZhbGlnbj 0vhJ3uPr4+XRIhfXV0zMX9fT6i DhCcXaA2CQqoA588EfYrzEZd Bqjhk2yao6njmDg2WdCxCUNjhw IenQqkEMB8g4YqFx94U2VowDvd p9ZbMxz1xv44iSWfc1S8kRV7 B7RwITWixgtztUOlvCqxRZ6tLM PytvpvLCHtaG5jICYjB2v5HsIu VvC7BEwbE8SzmkE0RUNvyOJs HHNurVTYkA4ersotc9uuzbvtFv MmZNZkQGk1CTf4CKWlqVpaHvHh HFT0NqV4RRI5nVPxxX1buBsp bygdyQ9jZxe+GED6nCNygRTVMM 1lOjwvdGQ+BDUgPYU1lNafTXoj LHNvnI2oAVTtT3m4PrUqOyN7 NYvbJ8SreiV9BKNecINsDESmqW XDkX2cvhnxn9tpygztTrZpBMWl FLw0AUd7RCOrlLabCqGbXEK1 IiZ8LOV5vPIzvR5qjWbjekqqzT 9wOyc+TuhaxIvlPZR7PYi2V4Rk Mcx9MUFgdCyxUG8eaDVjSKbp Pc2fkSqxhKiwGZ9rJTXhgnfog7 57FiFvr4zcOJKwsCPjVVbfZBV5 N39uc4J5WBAxUUPnWGZ8fJC3 oF4riYlpawyvwJTpwUyzajQqqT yuWBbxDHhlN676MSMujJqqDnMc UJo1O0LgGcf9LYYusNwzSQ1l dLImDUjsNm6faBqggWvxVS9vFD Knvsfqn383JaWib3lwNDRwaIJm WYjyXDJ2F82ws1X6JDTtMHHy WBZ3zUP4tC0gpNgzhzclfUYjgF sssbKceOycFOgrNFwcH133XMJz kWmkLhGckDf9R0WfYiu9QVUl fLtsCS6znXTfJNnlKr8wdKbmwN ozYL1jHUGzgorff771GlKje6yh QVWdbJRkGEnrMQC1N17yo4C8 GCLmTMZdAXC0pQA6eE8dyEgsxt ogbGVmdDsgdmVydGljYWwtYWxp Z831CXMllEarIeOdgFyhulHn XAruPHm5E7VrXqqcpMW+PC90YW AkHL07vWMnwQXlf0cutVu9WoJd XYGfOFT9pNijIOqkp9FlEFLp M83vyRAkh2U0VWHnwWkugIXkWr WtdVB5nO8wQPxgmgmbv2ngsapn Vgrlg7jvgu83yZ11O77wYIuk FIUqAQVqIDTdGJVhlMagxv5jtM 9wIi8+PXJcaSM6bJO9fU6jCRAz VuK2KCqeS715ZjHpsONwLxoz j8nbh5zstNa5EbA5RNUrumLdmO inENX0o5JtRc17F64tVKnjQZMn GIDsQPQjGYQwgHjzuz4dfK6y Ii8+AZGukMV5jYT9kP9vPfXgHe X6WBpqZ067NrHvnYKoEeduF10h I0XqmTR+CHUmRdu4FXEilWfg QV3kyGKfYDmyAv1fACH5EbQuFa KhCQmeB3LdJFYokilphkyvnIT6 KUHcOVLjeW42Kv1itFsaIIUk gPHGbY1ctclui3jqyahdOrSxHU UtSVt0QWj9BFVnkIfxFhUsOJG3 QrL5BKC5xQNjmW0ywAbwzlrr qO1lG1FyDFYfhierFn41nX2fMu BzPlM2GEpsNcw+T5HEWAGIQNHY Lj2ZBKU8P1GaIqe4EQZdjBaf LI0ytPRpEBlvNr9suSdlwRukES 3sCNRczudmWPIihH4mFLRntRXr mCvkGF8lSFBdyzdbu249SbXo END8FMGbcKEdF5VyoN5nVtKnYV WwXRPxR1KteULuHAcwB494DEjd JpP5ODPzfeVdL7VkHZHtuYoc OrE1m9S4Bl6tIW8fZh3nBVY4LX 85PS11sNFnm6N4gUW7X5XuTOBr vbcenofxaGA9SERhAUVlvW43 bOXzTIbjXq6pt3M4s782WODiIS SqvW62Dp4nxAeiKJLdxKBOeD8f wpzzu9zjngdfDmWpLCZcMRr4 MSx5NBCjkOpsPuXtHGB5ChA3OG D4aADmxQ0ifPjmlkwtvF1xHts+ OdDwONXoxgT7O5QgFpq2CFMo zPsxJJ6znTEsKZzyDr5yaJnreP rhPD5rWHTydyxoHOZtiR6cTWGn gIJtrIfyNB9qPUClzzezy746 CwGyOEZ1ZOCpfJHhV1MxfA9wBa NhOSRrYHVdK7AhaGUaVCguB526 EVglYsC1JOYbwbDcO7YgAHJk bWyaRwP5n5G0Gq9YKJmjNF50TR 62aOEgw1H3eHV3X7MzBEFqtuhs ubibcYZ7DAQiSHZosW12lGEw APnhMp5ia0I2y228AVJsPGCytC 66Cm2maHxvHBLyyCGAdQ6yteej s8wusuklExBzTLLjRFa1GRu5 DCJzcJlvMiUjMNW0JeR9OSU4jM YahU7thDmlafjjhZ1wYzn+RW1l rzumjrP3LN83FD58Q6YaUmgh dGFibGU+PHRhYmxlIHdpZHRoPS apGCAmPtVkmOyfNV8bEg4vSMTz AMOmbMtbwXYtMrQst2msMSYv CBooHZ7fvTujS6UljME7TZDkr5 n7Cr13S15lI5KeuNT+PGNvbCB3 kTG1nF1iYrMiQuW2LFadF989 IhHmwUBhFldnr7bru3bhwNq2Hy QeHQXbwmHjyUnkDUT3f9TrPc22 K29aDZiuRVJnVOLkSIRsYUBm iLlywk8qwS1lQd7+RZTpkSP8pW A7iL2bKoMzGmU2PUmtN187BiMc vBPwDfooD80vR1UsbDB+PHRy Res8FKYpsGqkHT3brKLbOQkuFc 0nOIH3VpPbCbHrYRpyL1SjFOGi effdrpynaUG5QNTkGPLstV01 Cv3gwFahJf6fYLMtMMT9ZKQrwD IyR2OxhM1gLqWwCXWxZZXqW8Hu xCAyGOrzR042GTspVyI2FNHa cdTqO9DzWAKfqTrxVpM2c0J6Yv 4EcOlymMZbXT0kPgWeNQv5Y4Vy Epa3GWUgrAnuYT6lnLQbEMxg Mk0voPadqHemHX4zRYXddlmnb2 00QtIkc2wvMGFodVWwXPdqKUL4 L32sq7J4XOPpYRMyZWT7bNX4 dK5hfOhxnpeshQIazIgdchHsqM lrAZphPFslU517LNUemKtlBpPV Dqc1M2AyNsb4MDKjpVeiYO7h kELzDDvnVb1dqTgaeNvhUQ6yMD Istdnrb739IdIse2scZNLynDJx YSkiRNF7I62dj0B4MYIdGXGx UQC4gGC8qL2gwRffkfjknJBraO jfeiMueVpcXQssOCqgO017HLGr iNfoBk1DExb3P6YeFkm3MPEh vCmkWO3eiNYjTNxmUh1dvAzyoW djGE1kMRUtcedqj738EaVeu3wf LSQehLRuFLoaJMN4J66wg8H6 SHTcPKKhIHS0qWA1nB7kuScnex ogbGVmdDsgdmVydGljYWwtYWxp P661KRShiWlkZfFdbVZtLpjs dGQ+AG69lk75X0LqWeijJoh9DX SaOHB9vIP6lV2bONEzLKysg5U8 qCY2V5OrctLmyf2uz2fcDQZk CWvdN96p (more content not included)... Normal [facility] CT Head or Brain w/o Contras ton [...] Lopez MD Transcribed by: TRACEY Technologist: N[facility] CT Maxillofacial w/o Contras ton [...] Lopez MD Transcribed by: TRACEY Technologist: NICK [facility] CT Spine Cervical w/o Contra ston [...] Lopez MD Transcribed by: TRACEY Technologist: N[facility] Consent for Treatmenton 06-15 Consent for Treatment [id number]:127 Normal [facility] Discharge Instructionson Discharge Instructions [id number]:127 Normal [facility] ED Clinical Summaryon 2022 ED Clinical Summary (Inserted Image. Mallory ble to display) [place] [id number] ED Clinical Summary Person Information Name: CORONA WHARTON [place] Age: 77 Years : 1945 Sex: Male Language: Slovenian PCP: Idalmis Silva MD Marital Status: Visit [...] 07/11/2022 09:57:32 07/11/2022 09:57:32 07/11/2022 09:57:32 ADDRESS: [address] [place] [phone] 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 He reports that he [...] Idalmis Silva In 3 days 07/14/2022 EDT [facility] [place] [phone] Business (1) Additional Instructions: Call the office [...] or worse (more content not included)... Normal [facility] Comment on above: Result Comment: Elec tronically [...] Ask your health care provider for a ouqu-qm-lfvt plan for gradually returning to activities. ? 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 Have them watch for any new or worsening problems. General instructions ? Take mzem-jev-zaetggi and prescription medicines only as told by [...] how mu (more content not included)... Normal [facility] ED Patient Summaryon 023 ED Patient Summary (Inserted Image. Mallory ble to display) [place] [id number] Patient Discharge Instructions Person Information Name: CORONA WAHRTON Age: 77 Years Arrival Date: 07/11/2022 08:09:24 Discharge Diagnosis: Accidental fall; Closed head injury; Facial contusion Primary Care Physician: Idalmis Silva MD Provider Information Primary Provider: Gerson Luz DO Advanced User Experience Architect:Clive The exam and treatment you received in the Emergency Department were for an urgent problem and are not intended as complete care. It is important that you follow up with a doctor, nurse practitioner, or physician?s communications assistant for ongoing care. If your symptoms [...] Follow-up Instructions: With: Address: When: Idalmis Silva [address] [place] [address], [facility] [place] [address] Business (1) In 3 days [...] opioids can be used to help relieve vfptdeov-mv-aiagkb pain and are often prescribed following a [...] pain. o (more content not included)... Normal [facility] ED Traumaon 07-11-2022 ED Trauma [id number]:127 Normal [facility] EMS Documentationon 07-12-19 EMS Documentation Please click on link to see report itaCuxu14RKLWQx9eFeXAWkD0+ sphWCvwDAMJnGJiFRCxFiZ7YKb gPeByTN0hsv6YUNbDD6OxTWQzI NetWl8H KAkkNTp8OTXuEX6BS2gjWIu3Pz L2Io2FjZ2cCOQovbMvNABHY61y DavjPoUtSPwkTRAfRAN3OZVS Gs9bRAGrMBDtPPFjMWDdLPMxHL AgICAgICAgICAgICAgICAgICAg ICAgICAgICAgICAgICAgICAg ICAgICAgICAgICAgICAgICAgIC EdINspppCvMtiVHe6QcTKnYu2E MjIgMjUNCjAwMDAwMDAwMzIg DIOeBTMokl3YLEQbDYAqJDH9QA AwMDAwMCBuDQowMDAwMDAxNTg3 CTDrZVTgFJ9PFfLcRUMoXSU6 URDuHQYoGVScyr9QEBGnMIKeDM kzNCAwMDAwMCBuDQowMDAwMDAy JYb8AWMdBNIpTS4SJfTcDGUv PDXeOvDzNVCpCOUvls5QXCVmND AwMjMxNSAwMDAwMCBuDQowMDAw BCHxAys7SMJcCLDfFL6OCgZf MWInQLJ4XUqcOVDsUDAooz2PBL AwMDAwMjgwNSAwMDAwMCBuDQow EICmIMTyTWZ6YXJyVZHwHU2R GaTuDIKuKSY0IOvxGJWdBTSczu 0KMDAwMDAwMzYxMyAwMDAwMCBu SCzgJVZpKCRrVSK6ZSLcCOBe OB0AAcQcDHGyMUCqRUvlBEWsSE Byls6VEHJyWRQsCKQ0PuAlLDHh TWYdMQtiNRChPTK0OrQoJVVq ZQRuAE3ZIgBfHCQfNBO1YoTzLC LsRHAbol5NQTEvAOFhZZMvBVIq WZHkIXOuEDcpZREtSTB6YOIz DBXwKZOgWX6FUmQnQPGfEWS5LI HtJHZuNUWmep1QNTMmNLBvOKB5 OCAwMDAwMCBuDQowMDAwMDQ5 PXBqMCCjBDTySZ1HBgDuHHDiIG I9VfFuMTTxDTCadd0YyQTruOwn al6ZVOrRN7uZEHl2VYK7LXZX GtQyEMG8ROT3ETo2CngKCaWYPp NDRjUwNDA+CjwyRDhBNTNBMzdD SXXpLRKRVCz7S0VAXULQNiJF GBAMUM8iXx1NqoL8SST2UghvLW bsEp1nyWBzYrHwQVOHJ1YhefQe QJyRQ2UozBUxOUUcB4EGUQR1 Hz54GyrniLbKAVV8KJSRPPxdBP 5XPvtDYsSzKXmvFe94D7CRw4S2 SzTlJ9GNeGvNajJLVDosF4tW lIM0r4unoBtGzVHYaEroLItFva qTxaHODTnzXTJTpF12pqjEC1Bn GFg0I6MBRr7PXNllBbTmaC6F dXojXMX4bO3iJHCYZThUQijqGV 4GMDDCUHx8ITv+PiAgICAgICAg ICAgICAgICAgICAgICAgICAg ICAgICAgICAgICAgICAgICAgIC AgICAgICAgICAgICAgICAgICAg ICAgICAgICAgICAgICAgICAg ICAgICAgICAgICAgICAgICAgIC AgICAgICAgICAgICAgICAgICAg ICAgICAgICAgICAgICAgICAg ICAgICAgICAgICAgICAgICAgIC AgICAgICAgICAgICAgICAgICAg ICAgICAgICAgICAgICAgICAg ICAgICAgICAgICAgICAgICAgIC AgICAgICAgICAgICAgICAgICAg ICAgICAgICAgICAgICAgICAg ICAgICAgICAgICAgICAgICAgIC AgICAgICAgICAgICAgICAgICAg ICAgICAgICAgICAgICAgICAg ICAgICAgICAgICAgICAgICAgIC AgICAgICAgICAgICAgICAgICAg ICAgICAgICAgICAgICAgICAg ICAgICAgICAgICAgICAgICAgIC AgICAgICAgICAgICAgICAgICAg ICAgICAgICAgICAgICAgICAg SR8Fg2WfaoJ6onOsZGzjQQdtMZ ZLVk8CKPdxSsMeMX5lek3KRZoD W48eoCTqSYNpOJYgBYWjDzkn J0EdbnJlmZiuemTlYcTcNMSOTz 4YhDIINYtuQ6K9zPiwRBNyTElz RKMPKb0QUGqySJ6wCZTkXDOv Go5xIFdyBFFyKZOmJePyTRRMHf 3KeSGbBC3TUYHrpO1xGk0+DQpl fiYjPymFJy3FQeLjAKUdMvcS Gbi8Ze4DcWu5MBRuJ8IeECOhBR Hia8JsLb4KNJ3thVpkXWH7Qd0A LOu1Ih4+KXmreZBrGB0RAckb P3YsSOQjTMGjNCEkAMkLIuZRDC pTgGwhqBgXA+OsNgjzizkDMsAQ ClVSWcISkVRpVrU1EEvSE2Y7 AXhGWxIyF5U5UFkXHMDVDwMgOW aIjXjR3gIYmHrBmzR7VMM3eXAO DHPrGRgm+jWjEDXhXoHHI2FT Oq0HZH8hb0OpWESpMJuojiPyDi kJLg2CFkSfKRRtQikYQmd8Jm2H c019TH40thEuJCFiGTXASGeb VXTryOMZh6ikFjRgPRB5TLWnFb xnRAzrPRZlCC94PULpOPWaVcap PbTnx0OjB3LzDQu6Tq2TG4Hj GTS7QNf5Bv8WXLLzBwDwWdNwIO QPTc3RRz5ZK9Q9hBGgH5XeB1OO Tr4ZXtRsQR9bri8ZEGduGwKx SH6mzb9ZTFwDP8HBe1waVcJsRC H0FFViJzkrUWgbBsjtwKSiNV9M vMU4SHRqN80mQZppDHFbH9Fy EBg4Wh1EWAIfrCDrONErWCxYV4 sUIkhrW5TeQZhLK6twOaT2VZKd IDAgUgo+Pgo+PyuzO6GjaSbr OWZoEr9nkYekNPxzBZLcMF1drm VjdAo+Cx8Ej1CdRBBgXRh1aGBQ 6MHb5KZeBHVuOAN2VDQmszLO LNqt9IcYuADxPvDbyISuX3peDL Fe82hDWNAcFoiIt2fjMzUc9MrP JZ+NZ5YDeeAeVeNupw1JXEow ixZgoMLmTF5IYhJoVC0opo6HOG zdLmAdQL6ufs6PXKhXH0OBFS1L d4YxYHxCO8ZOMBYJY7lJHSCQ Y8kNFAAWH4yRJQRIK40ETJOVA0 VXSLSliFUMY5OzMXHQFe2UHrXr VM3kdy7SACsmZKKjZP2xhu5H ZTnZX7ENNU9Oz9NrUAzBX7BxNG WJYn3UXqLcAO8tfo8QVWvkXBGj ZM0zmd2ODSoKC8GUSR5Xb0Qd CLaVF3LYABAJR4xWQSDOH3vAWY JLE9qXJQREN36DBBUVS0DQOYAc lRLTY1ShYECXYh3SVeRbYQ8m vy5POUqnDHDcEI8ave8BHJbAP8 Nzf1FLy130FM9WD7tJKgAcD794 eijgfd7pc1BBPVFruLYYZBnr OOWaK2HlKCXppIFmdmMwZOijLS JhWRQtDj6TozUjNGvbJaLyEYAo fwDwnTfyDGvgG8BpuYejETWz IPjwUSHVJ6YpMG2jA05rPAEuCj XpZBPHU1V8jIBxD5JrbfWZFf2P OoUhEQ4oab1HBAumFERvLX5u sw8XXHuJV3Tkb8GFf273DX6OA7 zMRnLwO515wmnqpd3pf7ONDPZr fFHZRZknL6oXR6aeeZDnOI5b qdR7OOgjP9TlZTPfqxxjXYnqXY 09cNJ7DPuxPoKrdXT9rygpQCJv n8BvMZpkP5UttHgbgYEpwRNx Cj4+Gf0AQCJCg2eOZU7lbOXxCE IbvaEfmMtFS6OJVVFPJ2AnqrJZ VNFvtrnnsE3pSNJaQRZsQbkp P6GlgHlaJMZnN6mOKw3brLY5jE NyEt1MfOOpMB9Pf335Tl4NGLqu TIGhTTC4MVVlVKq5IaGfKf6+ TOdvtwCwCdpLFx4PJiRaKEIuKc hUBkc1Kc0Qc0SvrzBoVWRvBmKv KSKtWu7HZOHFCSbvqMYyPVxn Wfg0Dfp9Am3PQWUeCW06SOTwVE 9cPCQ0YlwrGmkbS1CpLaLPC8Eg bxORGf81WSqxHSciHju6MODj ID70IEOvODD1WaTrZjJdLvV8BM P3DKZzTwFxSRcdJVLiIm3Se473 HbfwPIDhFTJaRIYDPg5Me135 TtDkPLHnW3KRU9fFZ9CcbUQcEN FTUHwPNl8In1buVSPZG3z4HNmc B9PyI1rgXSJCM5C0QF0MJQg2 FiP5WBe6Cw3UsOYfEQ6Jk908MM HtT6NhjIXbpqr+Mx4NWB8bh8Ay XBzQKyMmXOIda3UeUOl7ECou FuqdgGFzUD2NyOU3BXZrE90kGC dhFJIlG7BcBJAuIMx+Pt3Le5Qb FCBmJAm1hQ3Fv86WYUI5+yt8 iI4SqdPyJkmqMGrCzA+J8bZCrl SWirGMc+Yvw4AaAwXKUIJqwSX6 RIKsfWjJTCg7k2cb4U0M0MPh h58KK3BZVBDOrr3RH3G0FtoVge bz1hjY3Yx+EKPCwiJMN3edH/6w 1+XKHmob5fV1Vd/89bnaL63h rw3KFBAbsjvUs+id9qcxUelNuT W1VdJcxUnkGuzukw/IFUjIQ1bL JlGNtePnH4cPKng0Hk4j8gdN OQ1dHKgVsHxopEi0XdDASOWu9q GOUOyISYhj5nKxIFB6Vcp92o8U K2YbdhH3B87tIHOhzvE6cSZA O32MbeTeOCfcsvtDMjb0SPDE0g RGJXseuDPaKpAxCBBqY2g6VTfR iLzbJBbrvSmUryune43Yn0Ab 7TYWbv+AO36sSr5tRVjdnf7QLT 8lm0PiSKQvPEzffpFgRosCBs5J AiDsBHWdPrqBMvm7Lq1JCOBo Zh7nfCYfMkWVXi9WO7FwcYFoQV ENSOqHE68OSc0WFJMjGJ6tFU55 Go1yxUIuZnE4AUGySd9XQ3Dr V71rhG8jJP5NMKBnaAs1uP8SUq 6SiZI4aWNwME7SnEXbPBzsTJ2Y bmlj (more content not included)... Normal [facility] Pre-Arrival Noteon Pre-Arrival Note Pre-Arrival Summary Name: , Current Date: 07/11/2022 08:10:36 EDT Gender: Date of : Age: 78 Pre-Arrival Type: EMS ETA: 07/11/2022 08:19:00 EDT Primary Care Physician: Presenting Problem: fall Pre-Arrival User: Laura Tabor RN Referring Source: Location: PA Completion Date/Time: 07/11/2022 07:49:[address] [facility] Emergency Department Pre-Hospital Report Form _ Vital Signs: Pre-Hospital Report: Treatment in Route: Response to Treatment: Misc. Issues: Normal [facility] US MARLENA DOP LEG LTon 06-21-19 23 [...] by: GRAHAM SCHWARTZ Date: 2022-06-20 16:27 Normal [facility] CT LSPINE WO CONon [address] WO CON [facility] WO CON INDICATION: 76 years old; Male. [...] by: BALBINA FRIAS Date: 2022-05-05 23:41 Normal [facility] CTA ABD/PELVIS WO W CONon CTA [...] RADHA CONNELLY Date: 2022-05-05 23:51 Normal [facility] PROF CHEM 8 (BAS METB)on Anion gap [Moles/Vol] 14.7 mmol/L Normal [facility] Comment on above: Performed By: #### B MP #### [facility] [address] [place] [address] [address] Bertha Bowen Calcium [Mass/Vol] 9.0 mg/dL Normal 8.5-10.1 [facility] Comment on above: Performed By: #### B MP #### [facility] [address] [place] [address] [address] Bertha Bowen Chloride [Moles/Vol] 100 mmol/L Normal 98-107 [facility] Comment on above: Performed By: #### B MP #### [facility] [address] [place] [address] [address] Bertha Bowen CO2 [Moles/Vol] 29.1 mmol/L Normal 21.0-32.0 [facility] Comment on above: Performed By: #### B MP #### [facility] [address] [place] [address] [address] Bertha Bowen Creatinine [Mass/Vol] 1.33 mg/dL Critically high 0.70-1.30 [facility] Comment on above: Performed By: #### B MP #### [facility] [address] [place] [address] [address] Bertha Bowen EGFR-AF EGYPTIAN >60 Normal >=60 [facility] Comment on above: Performed By: #### B MP #### [facility] [address] [place] [address] [address] Bertha Bowen EGFR-NON AF EGYPTIAN 52 mL/min/1.73m2 Critically low >=60 [facility] Comment on above: Performed By: #### B MP #### [facility] [address] [place] [address] [address] Bertha Bowen Glucose [Mass/Vol] 260 mg/dL Critically high 74-106 [facility] Comment on above: Performed By: #### B MP #### [facility] [address] [place] [address] [address] Bertha Bowen Potassium [Moles/Vol] 4.8 mmol/L Normal 3.5-5.1 [facility] Comment on above: Performed By: #### B MP #### [facility] [address] [place] [address] [address] Bertha Bowen Sodium [Moles/Vol] 139 mmol/L Normal 136-145 [facility] Comment on above: Performed By: #### B MP #### [facility] [address] [place] [address] [address] Bertha Bowen Urea nitrogen [Mass/Vol] 27.0 mg/dL Critically high 7.0-18.0 [facility] Comment on above: Performed By: #### B MP #### [facility] [address] [place] [address] [address] Bertha Bowen Urea nitrogen/Creatinine [Mass ratio] 20.3 mg/mg Normal [facility] Comment on above: Performed By: #### B MP #### [facility] [address] [place] [address] [address] Bertha Bowen Progress Noteson 09-26-2021 Health Promotion Officer Authentication Interface Message Text EMERGENCY TRIAGE, TREAT AND TRANSPORT (ET3) DOCUMENTATION OF TELEHEALTH VISIT Date / Time: 09/26/2021 / 1515 Name: Corona Wharton : 1945 SSN: [id number] EMS Agency: [facility] [x] Verbal consent obtained [] [...] Completed by: Pelon Hawthorne MD Normal [facility] Vital Signs Date Time Vital Sign Value Performing Clinician Facility 07-25-2023 16:00-0400 Inhaled oxygen flow rate 2 L/min MD Idalmis Silva Work Phone: [facility] 07-25-2023 12:00-0400 Diastolic blood pressure 92 mm[Hg] MD Idalmis Silva Work Phone: [facility] 07-25-2023 12:00-0400 Heart rate 65 /min MD Idalmis Silva Work Phone: [facility] 07-25-2023 12:00-0400 Respiratory rate 18 /min MD Idalmis Silva Work Phone: [facility] 07-25-2023 12:00-0400 SaO2% (BldA) [Mass fraction] 96 % MD Idalmis Silva Work Phone: [facility] 07-25-2023 12:00-0400 Systolic blood pressure 152 mm[Hg] MD Idalmis Silva Work Phone: [facility] 07-25-2023 08:00-0400 Body temperature 98 [degF] MD Idalmis Silva Work Phone: [facility] 07-25-2023 04:45-0400 Body weight 148.9 kg MD Idalmis Silva Work Phone: [facility] 07-20-2023 14:08-0400 Body height 182.88 cm MD Idalmis Silva Work Phone: [facility] 07-19-2023 22:24-0400 Diastolic blood pressure 102 mm[Hg] MD Idalmis Silva Work Phone: [facility] 07-19-2023 22:24-0400 Heart rate 113 /min MD Idalmis Silva Work Phone: [facility] 07-19-2023 22:24-0400 Respiratory rate 22 /min MD Idalmis Silva Work Phone: [facility] 07-19-2023 22:24-0400 SaO2% (BldA) [Mass fraction] 90 % MD Idalmis Silva Work Phone: [facility] 07-19-2023 22:24-0400 Systolic blood pressure 152 mm[Hg] MD Idalmis Silva Work Phone: [facility] 07-19-2023 20:05-0400 Inhaled oxygen flow rate 2 L/min MD Idalmis Silva Work Phone: [facility] 07-19-2023 16:22-0400 Body height 182.88 cm MD Idalmis Silva Work Phone: [facility] 07-19-2023 16:22-0400 Body temperature 97.6 [degF] MD Idalmis Silva Work Phone: [facility] 07-19-2023 16:22-0400 Body weight 154 kg MD Idalmis Silva Work Phone: [facility] 07-11-2022 09:31-0400 Diastolic blood pressure 96 mm[Hg] Gerson Luz [facility] 07-11-2022 09:31-0400 Heart rate 96 /min Gerson Luz [facility] 07-11-2022 09:31-0400 Heart rate 98 /min Gerson Luz [facility] 07-11-2022 09:31-0400 Mean blood pressure 112 mm[Hg] Gerson Sukh [facility] 07-11-2022 09:31-0400 Respiratory rate 9 /min Gerson Sukh [facility] 07-11-2022 09:31-0400 Respiratory rate 18 /min Gerson Sukh [facility] 07-11-2022 09:31-0400 SaO2% (BldA) [Mass fraction] 96 % Gerson Sukh [facility] 07-11-2022 09:31-0400 Systolic blood pressure 145 mm[Hg] Gerson Sukh [facility] 07-11-2022 09:00-0400 Heart rate 95 /min Gerson Sukh [facility] 07-11-2022 09:00-0400 Hourly Rounding Gerson Sukh [facility] 07-11-2022 09:00-0400 Respiratory rate 20 /min Gerson Sukh [facility] 07-11-2022 08:26-0400 Diastolic blood pressure 101 mm[Hg] Gerson Sukh [facility] 07-11-2022 08:26-0400 Heart rate 88 /min Gerson Sukh [facility] 07-11-2022 08:26-0400 Respiratory rate 18 /min Gerson Sukh [facility] 07-11-2022 08:26-0400 SaO2% (BldA) [Mass fraction] 96 % Gerson Sukh [facility] 07-11-2022 08:26-0400 Systolic blood pressure 136 mm[Hg] Gerson Sukh [facility] 07-11-2022 08:10-0400 Body temperature 98.06 [degF] Gerson Luz [facility] 07-11-2022 08:10-0400 Respiratory rate 18 /min Gerson Luz [facility] 07-11-2022 08:10-0400 SaO2% (BldA) [Mass fraction] 96 % Gerson Luz [facility] 09-26-2021 15:15-0400 Diastolic blood pressure 81 mm[Hg] [facility] 09-26-2021 15:15-0400 Heart rate 95 /min [facility] [facility] 09-26-2021 15:15-0400 Respiratory rate 16 /min [facility] [employer] 09-26-2021 15:15-0400 SaO2% (BldA) [Mass fraction] 93 % [facility] [employer] 09-26-2021 15:15-0400 Systolic blood pressure 158 mm[Hg] [facility] [employer] Encounters Encounter Date Encounter Type Care Provider Facility Start: 08-09-2023 End: 08-09-2023 ambulatory [facility] Not Available Start: 07-25-2023 Non-patient / Non-visit MD Idalmis Silva Work Phone: [facility] Phys[facility] Work Phone: Start: 07-20-2023 Non-patient / Non-visit MD Idalmis Silva Work Phone: [facility] Physician [facility] Work Phone: Start: 07-19-2023 End: 07-25-2023 Evaluation and management of inpatient Matthew Rodriguez Vikas Facility:[facility] Start: 07-19-2023 End: 07-25-2023 Evaluation and management of inpatient MD Idalmis Silva Work Phone: [facility] [employer] [facility] Work Phone: Start: 07-11-2022 End: 07-11-2022 Emergency department patient visit Gerson Luz [place]: 07-11-2022 End: 07-11-2022 Emergency department patient visit Gerson Luz [facility] Start: 06-20-2022 End: 06-20-[address] IDALMIS SILVA . Facility: Start: 05-05-2022 End: 05-06-[address] CODY AMBRIZ . Facility: Start: 04-18-2022 End: 05-02-2022 [facility] Start: 09-26-2021 End: 09-28-2021 ambulatory UNKNOWN PROVIDER Facility:[facility] Start: 09-26-2021 End: 09-26-2021 ambulatory [facility] Emergenc y Triage, Treat and Transport Start: 09-26-2021 End: 09-26-2021 Emergency department patient visit [facility] Emergency Triage, Treat and Transport Comment on [...] wall Gerson Luz Start: 08-12-2014 Cystoscopy Gerson Refugio wisam Start: 08-12-2014 Urodynamic studies Emelina marty Sukh Back structure, excl uding neck (body structure) Gerson Luz Colonoscopy Gerson Luz History of hernia repair Ben Luz Plan of Treatment Date Care Activity Detail Author Start: 07-25-2023 [facility] Start: 07-24-2023 Referral to navigation officer [facility] Start: 07-24-2023 [facility] Start: 07-23-2023 [facility] Start: 07-22-2023 Blood culture for bacteria, including anaerobic screen Blood Culture [facility] Start: 07-22-2023 [facility] Start: 07-21-2023 [facility] Start: 07-20-2023 Referral to neurologist [facility] Start: 07-20-2023 End: 07-20-2023 [facility] Start: 07-19-2023 Hospital admission [facility] Start: 07-19-2023 Microbial culture of sputum [facility] Start: 07-19-2023 [facility] Start: 07-19-2023 Bacteria identified in Blood by Culture [facility] Start: 07-19-2023 Bacteria identified in Urine by Culture [facility] Start: 06-17-2021 COVID-19 Vaccine (4 - Booster for Moderna series) COVID-19 Vaccine (4 - Booster for Moderna series) [facility] Start: 03-14-2018 Pneumococcal vaccination Pneumococcal Vaccine(s) (65+ yrs) (2 - PPSV23 or PCV20) [facility] Start: 01-14-2009 Annual wellness visit Annual Wellness [...] Screening for malignant neoplasm of colon Colonoscopy [facility] Albumin/Globulin ratio [facility] Anion gap measurement [facility] Basophils [#/volume] in Blood by Automated count [facility] Basophils/100 leukoc ytes in Blood by Automated count [facility] Calculated LDL alona sterol level [facility] Cholesterol.total/Ch olestero l in HDL [Mass Ratio] in Serum or Plasma [facility] Eosinophils/100 leuk ocytes in Blood by Automated count [facility] Erythrocyte distribu tion width [Ratio] by Automated count [facility] Erythrocytes [#/volu me] in Blood [facility] Globulin [Mass/volum e] in Serum [facility] Glucose measurement estimated from glycated hemoglobin [facility] Hematocrit [Volume F raction] of Blood [facility] Hemoglobin [Mass/vol ume] in Blood [facility] Leukocytes [#/volume ] corrected for nucleated erythrocytes in Blood by Automated coun [facility] Leukocytes [#/volume ] in Blood [facility] Lymphocytes [#/volum e] in Blood by Automated count [facility] Lymphocytes/100 leuk ocytes in Blood by Automated count [facility] MCH [Entitic mass] b y Automated count [facility] MCHC [Mass/volume] b y Automated count [facility] MCV [Entitic volume] by Automated count [facility] Monocytes [#/volume] in Blood by Automated count [facility] Monocytes/100 leukoc ytes in Blood by Automated count [facility] Neutrophils [#/volum e] in Blood by Automated count [facility] Neutrophils/100 leuk ocytes in Blood by Automated count [facility] Nucleated erythrocyt es [Presence] in Blood by Automated count [facility] Patient Education Heart Failure, Adult (DC) [facility] Work Phone: Patient referral [facility] Work Phone: Platelet mean volume [Entitic volume] in Blood by Automated count [facility] Platelets [#/volume] in Blood [facility] VLDL cholesterol measurement [facility] Immunizations Immunization Date Immunization Notes Care Provider [facility] 01-27-2020 Seasonal trivalent i nfluenza vaccine, adjuvanted, preservative free [facility] 03-14-2017 pneumococcal conjuga te vaccine, 13 valent [facility] 01-25-2017 influenza, high dose seasonal, preservative-free [facility] Payers Date Payer Category Payer Self-pay [id number] 2020 Unknown [id number] 2008 Medicare MEDICARE MEDICAR E PART A & B [id number] 2008-Present [address] [place] [address] Medicare [id number] 2008 Medicare [id number] 1945 Unknown [id number] 1945 Unknown [id number] 1945 Unknown [id number] 1945 Unknown [id number] 1945 Unknown [id number] [id number] 1945 Unknown [id number] [id number] 1945 Unknown [id number] [id number] Unknown Regular Insurance [id number] Unknown [id number] Social History Date Type Detail Facility Tobacco smoking status UTIS Tobacco smoking consumption unknown [facility] Start: 1945 Sex Assigned At Not on file [facility] Start: 03-03-2019 Tobacco smoking status Never smoked tobacco (finding) [facility] Tobacco smoking status Never [facility] Sex Assigned At Male [facility] Start: 07-19-2023 End: 07-25-2023 Tobacco smoking status UTIS Ex-smoker (finding) [facility] Start: 1945 Sex Assigned At Male [facility] Goals Date Patient Goal Desired Activity /State Functional Status Date Assessment Result Facility 07-25-2023 Functional status Patient is Pro gressing Toward Baseline [facility] Work Phone: 07-11-2022 Functional Status N/A [facility] Mental Status Date Assessment Result Facility 07-25-2023 Cognitive function Cognitive Sta tus Patient is Progressing Toward Baseline [facility] Work Phone: Clinical Notes 09-26-2021 to 07-25-2023 Note Date & Type Note Facility 07-25-2023 Consult note Note Date/Time July 25, 2023 9:16am [facility] [address] [place] [address] Gastroenterology Consult Note Signed Patient: Corona Wharton MR#: [id number] : 1945 Acct:[id number] Age/Sex: 78 / M Adm Date: 4 Loc: 3T Room: [address] [place] [address] Type: ADM IN Attending Dr: Luigi Napoles [...] negative unless noted below or in HPI [facility] Medical History (Updated 07/25/23 @ 10:04 by [...] during swallowing. Documented By: Brenda Zheng MD 07/25/23 6405 Signed By: <Electronically signed by Brenda Zheng MD> 07/25/23 6698 [facility] Work Phone: 1(456) 231-596104-09-2024 Progress note Author Luigi Napoles [facility] July 24, 2023 2:46pm Note Date/Time July 24, 2023 11:[address] [facility] [address] [place] [address] Hospitalist Progress Note Signed Patient: Corona Wharton MR#: [id number] : 1945 Acct:[id number] Age/Sex: 78 / M Adm Date: 4 Loc: 3T Room: [address] [place] [address] Type: ADM IN Attending Dr: Luigi Napoles [...] 07/23/23 21:00 07/24/23 08:04 Pantoprazole 40 Mg Tablet.Dr PO 07/22/24 20:59 40 mg BID TATIANNA [...] recommended by ST -therapy recs SNF- plan [facility] precert pending Hypomagnesia -replete, trend lab Chronic [...] signed by Luigi Napoles DO> 07/24/23 1446 [facility] Work Phone: 1(825) 313-899604-08-2024 Progress note Author uLigi Napoles [facility] July 23, 2023 2:31pm Note Date/Time July 23, 2023 10:[address] [facility] [address] [place] [address] Hospitalist Progress Note Signed Patient: Corona Wharton MR#: [id number] : 1945 Acct:[id number] Age/Sex: 78 / M Adm Date: 4 Loc: Room: [address] [place] [address] Type: ADM IN Attending Dr: Luigi Napoles DO Copies to: ~ Date of Service: 07/23/2023 Subjective Subjective Narrative: Patient seen and examined. LLE with some erythema, this is my first time seeingthe patient- bedside nurse reports erythema improved from over weekend. Patientreports minimal discomfort at site. Complaints of regurgitation of foot - ST has seen the patient and he is on [facility] soft ground meats with nectar thickened [...] signed by Luigi Napoles DO> 07/23/23 1431 [facility] Work Phone: 1(264) 283-478604-07-2024 Progress note Author Luigi Npaoles [facility] July 22, 2023 2:21pm Note Date/Time July 22, 2023 11:[address] [facility] [address] [place] [address] Hospitalist Progress Note Signed Patient: Corona Wharton MR#: [id number] : 1945 Acct:[id number] Age/Sex: 78 / M Adm Date: 4 Loc: 4 Room: [address] [place] [address] Type: ADM IN Attending Dr: Luigi Napoles [...] Dose Route Start Last Admin Trade Name Hector PRN Reason Stop Dose Admin Acetaminophen 500 [...] 07/20/23 16:45 07/21/23 08:28 Pantoprazole 40 Mg Tablet. PO 07/19/24 16:44 40 mg DAILY TATIANNA [...] <Electronically signed by Luigi Napoles DO> 07/22/23 [facility] Work Phone: 1(986) 314-689204-07-2024 Progress note Author Matthew Bean [facility] July 22, 2023 11:17am Note Date/Time July 22, 2023 10:[address] [facility] [address] [place] [address] Neurology Progress Note Signed Patient: Corona Wharton MR#: [id number] : 1945 Acct:[id number] Age/Sex: 78 / M Adm Date: 4 Loc: Room: [address] [place] [address] Type: ADM IN Attending Dr: Luigi Napoles [...] Level of Supervision Constant Supervision Liquid Consistency Ceex Haci-Thick Liquids,Thin Water Between Meals Recommendation Solid Consistency [...] <Electronically signed by Matthew Bean DO> 07/22/23 1119 [facility] Work Phone: 1(647) 800-880704-06-2024 Progress note Author Luigi Napoles [facility] July 21, 2023 7:45pm Note Date/Time July 20, 2023 1:[address] [facility] [address] [place] [address] Hospitalist Progress Note Signed Patient: Corona Wharton MR#: [id number] : 1945 Acct:[id number] Age/Sex: 78 / M Adm Date: 4 Loc: 4 Room: [address] [place] [address] Type: ADM IN Attending Dr: Luigi Napoles [...] By: <Electronically signed by VIPIN Herron> 07/20/23 1833 <Electronically signed by Luigi Napoles DO> 07/21/231944 [facility] Work Phone: 1(535) 734-642604-06-2024 Progress note Author Sarah Herron [facility] July 21, 2023 1:59pm Note Date/Time July 21, 2023 11:[address] [facility] [address] [place] [address] Hospitalist Progress Note Signed Patient: Corona Wharton MR#: [id number] : 1945 Acct:[id number] Age/Sex: 78 / M Adm Date: 4 Loc: Room: [address] [place] [address] Type: ADM IN Attending Dr: Luigi Napoles [...] By: <Electronically signed by VIPIN Herron> 07/21/23 9465 [facility] Work Phone: 1(951) 566-676604-06-2024 Progress note Author Matthew Bean [facility] July 21, 2023 1:53pm Note Date/Time July 21, 2023 11:[address] [facility] [address] [place] [address] Neurology Progress Note Signed Patient: Corona Wharton MR#: [id number] : 1945 Acct:[id number] Age/Sex: 78 / M Adm Date: 4 Loc: Room: [address] [place] [address] Type: ADM IN Attending Dr: Luigi Napoles [...] Level of Supervision Constant Supervision Liquid Consistency Ceex Haci-Thick Liquids,Thin Water Between Meals Recommendation Solid Consistency [...] <Electronically signed by Matthew Bean DO> 07/21/23 7541 [facility] Work Phone: 1(730) 647-748104-05-2024 History and physical note Author Balbina Garzon [facility] July 20, 2023 8:37pm Note Date/Time July 20, 2023 4:[address] [facility] [address] [place] [address] Hospitalist H&P Signed Patient: Corona Wharton MR#: [id number] : 1945 Acct:[id number] Age/Sex: 78 / M Adm Date: 4 Loc: Room: [address] [place] [address] Type: ADM IN Attending Dr: Luigi Napoles [...] of Systems Unobtainable due to mental status [facility] Medical History Diabetes Hyperlipidemia Hypertension Stroke Social [...] % (Auto) 14.4 % (.) 07/19/23 16:31 [place] % (Auto) 6.0 % (.) 07/19/23 16:31 Eos % (Auto) 2.5 % (.) 07/19/23 16:31 Baso % (Auto) 0.3 % (.) 07/19/23 16:31 Nucleat RBC Rel Count 0.2 /100 WBC (0-0.5) 07/19/23 16:31 Neut # (Auto) 10.3 x10E3/uL (1.8-7.7) H 07/19/23 16:31 Lymph # (Auto) 1.9 x10E3/uL (1.00-4.8) 07/19/23 16:31 [place] # (Auto) 0.8 x10E3/uL (0.0-0.8) 07/19/23 16:31 [...] pH 6.5 (5.0-9.0) 07/19/23 19:30 Ur Specific [place] 1.015 (1.001-1.030) 07/19/23 19:30 Urine Protein 300 [...] 3 Documented By: Balbina Garzon DO 07/20/23 34 Signed By: <Electronically signed by Balbina Garzon DO> 07/20/232036 [facility] Work Phone: 1(592) 834-818204-05-2024 Consult note Author Matthew Bean [facility] July 20, 2023 2:51pm Note Date/Time July 20, 2023 2:[address] [facility] [address] [place] [address] Neurology Consult Note Signed Patient: Corona Wharton MR#: [id number] : 1945 Acct:[id number] Age/Sex: 78 / M Adm Date: 4 Loc: Room: [address] [place] [address] Type: ADM IN Attending Dr: Luigi Napoles DO Copies to: DO Idalmis Moore MD Shawn J Warner, DO~ HPI Consult Date: 07/20/23 Territory Sales Professional: Matthew Bean DO [facility] Medical History (Reviewed 02/25/21 @ 14:46 by Jazmyne Lopez APRN, [employer] Diabetes Hyperlipidemia Hypertension Stroke Social History Smoking [...] David Zeng M.D.07/19/2023 5:37 PM Dictation Location: [facility]--[address] 07/19/23 16:30 IMPRESSION: No acute intracranial pathology. 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 Impression dictated by: David Zeng M.D.07/19/2023 5:42 PM Dictation Location: [facility]--13 Therapy Recommendations Therapy Recommendations: ST Recommendations Level of Supervision Constant Supervision Liquid Consistency Ceex Haci-Thick Liquids,Thin Water Between Meals Recommendation Solid Consistency [...] signed by Matthew Bean DO> 07/20/23 1451 [facility] Work Phone: 1([phone]) 162-138203-28-2023 Evaluation + Plan noteExtracted from: Title:ED Note Author:Gerson Luz DO Date: Accidental fall (W19.XXXA: U nspecified fall, initial encounter) Closed head injury (S09.90XA: Unspecified injury of head, initial encounter) Facial contusion (S00.83XA: Contusion of other part of head, initial encounter) Orders: CT Head or Brain w/o Contrast CT Maxillofacial w/o Contrast CT Spine Cervical w/o Contrast [facility]03-28-2023 Hospital Discharge instructions Patient Education 07/11/2022 09:33:48 [...] If you or a loved one falls atthe hospital, it is important to tell hospital [...] balance. Talk with a physical therapist or slate trimmer if recommended by your health care provider. [...] 03/30/2001 Document Revised: 03/15/2018 Document Reviewed: 11/14/2017 [employer] Patient Education 2020 [employer]. 07/11/2022 09:33:48 Head Injury, Adult Head Injury, [...] Ask your health care provider for a dblq-rs-clkf plan for gradually returning to activities. Ask [...] your friends, family, a trusted colleague, and loft worker apprentice about your injury, symptoms, and restrictions. Have them watch for any new or worsening problems. General instructions Take xepx-dfa-jddrrey and prescription medicines only as told by [...] 04/02/2006 Document Revised: 04/30/2019 Document Reviewed: 04/25/2019 [employer] Patient Education 2020 [employer]. 07/11/2022 09:33:48 Facial or Scalp Contusion Facial [...] applying cold compresses to the injured area. Wyzj-hib-szcjoji medicines may also be recommended for pain control. Follow these instructions at home: Take imkz-kcv-fgrtvei and prescription medicines only as told by [...] 05/10/2005 Document Revised: 03/15/2018 Document Reviewed: 02/20/2017 [employer] Patient Education 2020 [employer]. Follow Up Care 07/11/2022 08:10:05 With:Idalmis Lima Address: [address] [place], [place] [id number]- Business (1) When:07/14/2022 09:33:22 Comments:Call the office [...] sleep, or any new or worsening symptoms. [facility]06-13-2022 History of Present illness Narrative* Pelon Hawthorne MD - 09/26/2021 3:30 PM EDT Images from the original note were not included. 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 Work Phone: Hospital course Narrative No data available for this section [facility] data available for this section [facility] Summary Purpose Family History No Family History [...] and content) DATE CREATED AUTHOR 05/03/2022 [facility] DATE CREATED AUTHOR AUTHOR'S ORGANIZ ATION [facility]/22/2022 [facility] DATE CREATED AUTHOR AUTHOR'S ORGANIZ ATION 08/09/2022 [facility] DATE CREATED AUTHOR AUTHOR'S ORGANIZ ATION 08/10/2023 [facility] DATE CREATED AUTHOR AUTHOR'S ORGANIZ ATION 08/11/2023 [facility] Patient Care team informatio n [...] Active Start: July 19, 2023 Balbina Garzon , DO Admit Provider, Atte nding Provider Active [...] BE BASED ON THE PRIMARY CLINICAL RECORDS. [facility] provides no warranty or guarantee of the accuracy or completeness of information in this document.
[2023-08-15 08:00] LABS: Basophils Absolute Auto 0.1 10^3/uL (0.0-0.1); Eosinophils Absolute Auto 0.2 10^3/uL (0.0-0.7); Eosinophils Percent Auto 1.9 % (0.9-7.0); Hematocrit 47.8 % (42.0-54.0); Hemoglobin 13.4 g/dL (14.0-18.0); Immature Granulocytes Abs Auto 0.05 10^3/uL (0.00-0.03); Immature Granulocytes Pct Auto 0.5 % (0.0-0.5); Mean Corpuscular Hemoglobin 25.9 pg (25.9-34.0); Mean Corpuscular Volume 92.5 fL (80.0-94.0); Mean Platelet Volume 10.8 fL (9.5-13.5); Monocytes Absolute Auto 0.9 10^3/uL (0.3-0.8); Monocytes Percent Auto 9.9 % (1.7-12.0); Neutrophils Absolute Auto 6.1 10^3/uL (1.4-6.5); Neutrophils Percent Auto 65.7 % (43.0-75.0); Platelet Count 206 10^3/uL (150-450); Red Blood Count 5.17 10^6/uL (4.70-6.10); Red Cell Distribution Width 15.9 % (11.0-15.0); White Blood Count 9.4 10^3/uL (4.0-11.0)
== END 2023-08-15 00:46 | disposition home or self-care (01) ==
LOC: LAB 00:45
PROVIDERS: PCP Family Medicine; Visit Provider Family Medicine
DX: E11.9 Type 2 diabetes mellitus without complications (principal); I10 Essential (primary) hypertension
CPT/HCPCS: 36415; 85025

== ENCOUNTER 2023-08-17 02:29 | Outpatient (REF) | payer OTHER, SELFPAY ==
--- OUTSIDE RECORDS SUMMARY | 2023-08-17 02:32 | XMS_ITS | CCD ---
Author Organization [facility] Care Team Providers Care Reading Instructor Name Role Phone Unavailable Primary Care Provider [...] DR ROSS Admitting Unavailable HAY ., DR RSOS Attending Unavailable LIMA ., DR RAYGOZA Primary Care Unavailable PB ., DR ROSS Consulting Unavailable BALBINA FRIAS Consulting Unavailable RADHA CONNELLY Consulting Unavailable LIMA ., DR RAYGOZA Admitting Unavailable HORoss ., DR RAYGOZA Attending Unavailable LIMA ., DR RAYGOZA Primary Care Unavailable Idalmis Silva Primary Care Physician [phone] Gerson Luz Attending Unavailable MD Idalmis Silva Primary Care Provider [phone] DO Rubén Cardoso Emergency Provider [phone] DO Balbina Garzon Admit Provider [phone] DO Balbina Garzon Attending Provider [phone] DO Luigi Napoles Attending Provider DO Matthew Bean Other Provider MD Brenda Zheng Other Provider MEG PECK Attending Unavailable Matthew Bean Consulting Unavailable Idalmis Silva Primary Care Unavailable Balbina Garzon Admitting Unavailable Luigi Napoles Attending Unavailable Brenda Zheng Consulting Unavailable Allergies Allergy Classification Reported Allergen(s) Allergy Type Date of Onset Reaction(s) Facility (1 source) Allopurinol Drug Allergy [facility] Repository (1 source) No Known Medication Allergies; Translations: [No Known Medication Allergies] Propensity to adverse reactions (disorder) [place] Repository (3 sources) Azithromycin; Translations: [azithromycin] Drug Allergy 4 [facility] (3 sources) cefTRIAXone; Translations: [ceftriaxone] Drug Allergy 4 [facility] Medications Current Medications Medication Drug Class(es) [...] July 20, 2023 12:00am polyethylene glycol 3350 23369 mg powder for oral solution (1 source) [...] every four to six hours Hydrocodone-Acetam inophen (Hubert) 5-325 mg tablet Discontinued 1 TAB PO [...] Onset: 05-09-2022 Other aftercare (1 source) Other snf (current) drug therapy; 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] Onset: 06-21-2022 Episodic Other aftercare (1 source) [facility] (current) use of insulin; Translations: [[facility] CURRENT USE OF INSULIN] Onset: 06-21-2022 Episodic [...] gap [Moles/Vol] 10.4 mmol/L Normal 6.0-15.0 [facility] Comment on above: Performed By: #### C UBLD, LACTIC #### [address] Calcium [Mass/Vol] 9.0 mg/dL Normal 8.6-10.3 [facility] Comment on above: Performed By: #### C UBLD, LACTIC #### [address] Chloride [Moles/Vol] 98 mmol/L Normal 98-107 [facility] Comment on above: Performed By: #### C UBLD, LACTIC #### [address] CO2 [Moles/Vol] 33.7 mmol/L High 21.0-31.0 [facility] Comment on above: Performed By: #### C UBLD, LACTIC #### [place] [address] [place] Creatinine [Mass/Vol] 1.20 mg/dL Normal 0.70-1.30 [facility] Comment on above: Performed By: #### C UBLD, LACTIC #### [place] [address] [place] Creatinine Clr Calc Pharmacy 77.38 Normal [facility] Comment on above: Result Comment: PERF ORMED BY: [place] [address] PATHOLOGIST CERTIFIED ORTHOTIST PRACTICE MANAGER FREDA ALCAZAR M.D. Performed By: #### C UBLD, LACTIC #### [place] [address] [place] GFR/1.73 sq M.predicted MDRD (S/P/Bld) [Vol rate/Area] mL/min/{1.73_m2} Normal [facility] Comment on above: Performed By: #### C UBLD, LACTIC #### [facility] [address] Glucose [Mass/Vol] 141 mg/dL High 70-100 [facility] Comment on above: Result Comment: [facility] Glucose Reference Range is dependent on time and content of last meal. Glucose of more than 200 mg/dL in a nonstressed, ambulatory subject supports the diagnosis of Diabetes Mellitus. ADA recommended reference range Performed By: #### C UBLD, LACTIC #### [facility] [address] Potassium [Moles/Vol] 4.1 mmol/L Normal 3.5-5.1 [facility] Comment on above: Performed By: #### C UBLD, LACTIC #### [facility] [address] [place] [address] [place] Sodium [Moles/Vol] 138 mmol/L Normal 136-145 [facility] Comment on above: Performed By: #### C UBLD, LACTIC #### [facility] [address] Urea nitrogen [Mass/Vol] 12 mg/dL Normal 7-25 [facility] Comment on above: Performed By: #### C UBLD, LACTIC #### [facility] [address] [place] [address] [place] Basophils Auto (Bld) [#/Vol] Ordered By: Monica Crocker on 07-25-2023 Basophils (Bld) [#/Vol] 0.1 10*3/uL 0.0-0.2 [facility] Basophils/100 WBC Auto (Bld) Ordered By: Monica Crocker on 07-25-2023 Basophils/100 WBC (Bld) 1.1 % . [facility] Calcium [Mass/volume] in Ser um or PlasmaOrdered By: Monica Crocker on 07-25-2023 Calcium [Mass/Vol] 9.0 mg/dL 8.6-10.3 [facility] Carbon dioxide, total [Moles /volume] in Serum or PlasmaOrdered By: Monica Crocker on 07-25-2023 CO2 [Moles/Vol] 33.7 mmol/L 21.0-31.0 [facility] Chloride [Moles/volume] in S erika or PlasmaOrdered By: Monica Crocker on 07-25-2023 Chloride [Moles/Vol] 98 mmol/L 98-107 [facility] Complete Blood Count Auto Di ffon 07-25-2023 Basophils (Bld) [#/Vol] 0.1 10*3/uL Normal 0.0-0.2 [facility] Comment on above: Result Comment: PERF ORMED BY: [place] [address] PATHOLOGIST CERTIFIED ORTHOTIST PRACTICE MANAGER FREDA ALCAZAR M.D. Performed By: #### C UBLD, LACTIC #### [address] Basophils/100 WBC (Bld) 1.1 % Normal . [facility] Comment on above: Performed By: #### C UBLD, LACTIC #### [place] [address] [place] Eosinophils (Bld) [#/Vol] 0.4 10*3/uL Normal 0.0-0.45 [facility] Comment on above: Performed By: #### C UBLD, LACTIC #### [address] Eosinophils/100 WBC (Bld) 3.1 % Normal . [facility] Comment on above: Performed By: #### C UBLD, LACTIC #### [address] Erythrocyte distribution width (RBC) [Ratio] 15.6 % High 12.0-14.8 [facility] Comment on above: Performed By: #### C UBLD, LACTIC #### [address] Hematocrit (Bld) [Volume fraction] 41.2 % Normal 38.8-50.0 [facility] Comment on above: Performed By: #### C UBLD, LACTIC #### [facility] [address] Hemoglobin (Bld) [Mass/Vol] 12.8 g/dL Low 13.0-17.0 [facility] Comment on above: Performed By: #### C UBLD, LACTIC #### [address] Lymphocytes (Bld) [#/Vol] 1.6 10*3/uL Normal 1.00-4.8 [facility] Comment on above: Performed By: #### C UBLD, LACTIC #### [address] Lymphocytes/100 WBC (Bld) 12.8 % Normal . [facility] Comment on above: Performed By: #### C UBLD, LACTIC #### [address] MCH (RBC) [Entitic mass] 26.1 pg Low 27.5-35.2 [facility] Comment on above: Performed By: #### C UBLD, LACTIC #### [address] MCV (RBC) [Entitic vol] 84.3 fL Normal 83.5-101 [facility] Comment on above: Performed By: #### C UBLD, LACTIC #### [address] Mean Corpuscular HGB Conc 30.9 g/dL Low 32.5-35.6 [facility] Comment on above: Performed By: #### C UBLD, LACTIC #### [address] Monocytes (Bld) [#/Vol] 0.9 10*3/uL High 0.0-0.8 [facility] Comment on above: Performed By: #### C UBLD, LACTIC #### [address] Monocytes/100 WBC (Bld) 7.0 % Normal . [facility] Comment on above: Performed By: #### C UBLD, LACTIC #### [facility] [address] [place] [address] [place] Neutrophils (Bld) [#/Vol] 9.5 10*3/uL High 1.8-7.7 [facility] Comment on above: Performed By: #### C UBLD, LACTIC #### [facility] [address] [place] [address] [place] Neutrophils/100 WBC (Bld) 76.0 % Normal . [facility] Comment on above: Performed By: #### C UBLD, LACTIC #### [facility] [address] [place] [address] [place] NRBC% 0.1 /100{WBC} Normal 0-0.5 [facility] Comment on above: Performed By: #### C UBLD, LACTIC #### [facility] [address] [place] [address] [place] Platelet mean volume (Bld) [Entitic vol] 7.8 fL Normal 6.6-10.1 [facility] Comment on above: Performed By: #### C UBLD, LACTIC #### [facility] [address] [place] [address] [place] Platelets (Bld) [#/Vol] 348 10*3/uL Normal 150-450 [facility] Comment on above: Performed By: #### C UBLD, LACTIC #### [facility] [address] [place] [address] [place] RBC (Bld) [#/Vol] 4.89 10*6/uL Normal 3.90-5.60 [facility] Comment on above: Performed By: #### C UBLD, LACTIC #### [facility] [address] [place] [address] [place] WBC (Bld) [#/Vol] 12.4 10*3/uL High 4.1-10.5 [facility] Comment on above: Performed By: #### C UBLD, LACTIC #### [facility] [address] [place] [address] [place] Creatinine [Mass/volume] in Serum or PlasmaOrdered By: Monica Crocker on 07-25-2023 Creatinine [Mass/Vol] 1.20 mg/dL 0.70-1.30 [facility] Eosinophils Auto (Bld) [#/Vo l]Ordered By: Monica Crocker on 07-25-2023 Eosinophils (Bld) [#/Vol] 0.4 10*3/uL 0.0-0.45 [facility] Eosinophils/100 WBC Auto (Bl d)Ordered By: Monica Crocker on 07-25-2023 Eosinophils/100 WBC (Bld) 3.1 % . [facility] Erythrocyte distribution wid th Auto (RBC) [Ratio]Ordered By: Monica Cordero on 07-25-2023 Erythrocyte distribution width (RBC) [Ratio] 15.6 % 12.0-14.8 [facility] Glucose Glucometer (BldC) [M ass/Vol]Ordered By: Luigi Napoles on 07-25-2023 Glucose [Mass/Vol] 172 mg/dL [facility] Comment on above: Random Glucose Refer ence Range is dependent on time and content of last meal. Glucose of more than 200 mg/dL in a nonstressed, ambulatory subject supports the diagnosis of Diabetes Mellitus. Glucose Poct Glucometerson 0 07-25-2023 Glucose [Mass/Vol] 172 mg/dL Normal [facility] Comment on above: Result Comment: Calcium Glucose Reference Range is dependent on time and content of last meal. Glucose of more than 200 mg/dL in a nonstressed, ambulatory subject supports the diagnosis of Diabetes Mellitus. PERFORMED BY: [facility] [address] [place] [address] PATHOLOGIST CERTIFIED ORTHOTIST PRACTICE MANAGER FREDA ALCAZAR M.D. Performed By: #### G LULS #### Point of Care testing , Glucose [Mass/Vol] 177 mg/dL Normal [facility] Comment on above: Result Comment: [facility] Glucose Reference Range is dependent on time and content of last meal. Glucose of more than 200 mg/dL in a nonstressed, ambulatory subject supports the diagnosis of Diabetes Mellitus. PERFORMED BY: [facility] [address] [place] [address] PATHOLOGIST CERTIFIED ORTHOTIST PRACTICE MANAGER FREDA ALCAZAR M.D. Performed By: #### C UBLD, LACTIC #### [address] Glucose [Mass/volume] in Ser um or PlasmaOrdered By: Monica Crocker on 07-25-2023 Glucose [Mass/Vol] 141 mg/dL 70-100 [facility] Comment on above: ADA recommended refe rence rangeRandom Glucose Reference Range is dependent on time and content of last meal. Glucose of more than 200 mg/dL in a nonstressed, ambulatory subject supports the diagnosis of Diabetes Mellitus. Hematocrit Auto (Bld) [Volum e fraction]Ordered By: Monica Crocker on 07-25-2023 Hematocrit (Bld) [Volume fraction] 41.2 % 38.8-50.0 [facility] Hemoglobin [Mass/volume] in BloodOrdered By: Monica Crocker on 07-25-2023 Hemoglobin (Bld) [Mass/Vol] 12.8 g/dL 13.0-17.0 [facility] Leukocytes [#/volume] correc marina for nucleated erythrocytes in Blood by Automated counOrdered By: Monica Crocker on 07-25-2023 WBC corrected for nucl RBC Auto (Bld) [#/Vol] 12.4 10*3/uL 4.1-10.5 [facility] Lymphocytes Auto (Bld) [#/Vo l]Ordered By: Monica Crocker on 07-25-2023 Lymphocytes (Bld) [#/Vol] 1.6 10*3/uL 1.00-4.8 [facility] Lymphocytes/100 WBC Auto (Bl d)Ordered By: Monica Crocker on 07-25-2023 Lymphocytes/100 WBC (Bld) 12.8 % . [facility] MCH Auto (RBC) [Entitic mass ]Ordered By: Monica Crocker on 07-25-2023 MCH (RBC) [Entitic mass] 26.1 pg 27.5-35.2 [facility] MCHC Auto (RBC) [Mass/Vol]Or dered By: Monica Crocker on 07-25-2023 MCHC (RBC) [Mass/Vol] 30.9 g/dL 32.5-35.6 [facility] MCV Auto (RBC) [Entitic vol] Ordered By: Monica Crocker on 07-25-2023 MCV (RBC) [Entitic vol] 84.3 fL 83.5-101 [facility] Monocytes Auto (Bld) [#/Vol] Ordered By: Monica Crocker on 07-25-2023 Monocytes (Bld) [#/Vol] 0.9 10*3/uL 0.0-0.8 [facility] Monocytes/100 WBC Auto (Bld) Ordered By: Monica Crocker on 07-25-2023 Monocytes/100 WBC (Bld) 7.0 % . [facility] Neutrophils Auto (Bld) [#/Vo l]Ordered By: Monica Crocker on 07-25-2023 Neutrophils (Bld) [#/Vol] 9.5 10*3/uL 1.8-7.7 [facility] Neutrophils/100 WBC Auto (Bl d)Ordered By: Monica Crocker on 07-25-2023 Neutrophils/100 WBC (Bld) 76.0 % . [facility] No Panel InformationOrdered By: Monica Crocker on 07-25-2023 Estimated GFR (CKD-EPI) > 60.0 mL/Min [facility] Creatinine Clearance (Chem 77.38 [facility] Nucleated erythrocytes [Pres ence] in Blood by Automated countOrdered By: Monica Crocker on 07-25-2023 Nucleated RBC Auto Ql (Bld) 0.1 /100{WBC} 0-0.5 [facility] Platelet mean volume Auto (B ld) [Entitic vol]Ordered By: Monica Crocker on 07-25-2023 Platelet mean volume (Bld) [Entitic vol] 7.8 fL 6.6-10.1 [facility] Platelets Auto (Bld) [#/Vol] Ordered By: Monica Crocker on 07-25-2023 Platelets (Bld) [#/Vol] 348 10*3/uL 150-450 [facility] Potassium [Moles/volume] in Serum or PlasmaOrdered By: Monica Crocker on 07-25-2023 Potassium [Moles/Vol] 4.1 mmol/L 3.5-5.1 [facility] RBC Auto (Bld) [#/Vol]Ordere d By: Monica Crocker on 07-25-2023 RBC (Bld) [#/Vol] 4.89 10*6/uL 3.90-5.60 [facility] Serum or plasma anion gap de terminationOrdered By: Monica Crocker on 07-25-2023 Anion gap [Moles/Vol] 10.4 mmol/L 6.0-15.0 [facility] Sodium [Moles/volume] in Ser um or PlasmaOrdered By: Monica Crcoker on 07-25-2023 Sodium [Moles/Vol] 138 mmol/L 136-145 [facility] Urea nitrogen [Mass/volume] in Serum or PlasmaOrdered By: Monica Crocker on 07-25-2023 Urea nitrogen [Mass/Vol] 12 mg/dL 7-25 [facility] WBC Auto (Bld) [#/Vol]Ordere d By: Monica Crocker on 07-25-2023 WBC (Bld) [#/Vol] 12.4 10*3/uL 4.1-10.5 [facility] Anisocytosis LM Ql (Bld)Orde red By: Balbina Garzon on 07-24-2023 Anisocytosis Ql (Bld) Slight [facility] Basic Metabolic Panelon Anion gap [Moles/Vol] 9.3 mmol/L Normal 6.0-15.0 [facility] Comment on above: Performed By: #### C UBLD, LACTIC #### [address] Calcium [Mass/Vol] 8.8 mg/dL Normal 8.6-10.3 [facility] Comment on above: Performed By: #### C UBLD, LACTIC #### [address] Chloride [Moles/Vol] 98 mmol/L Normal 98-107 [facility] Comment on above: Performed By: #### C UBLD, LACTIC #### [address] CO2 [Moles/Vol] 33.8 mmol/L High 21.0-31.0 [facility] Comment on above: Performed By: #### C UBLD, LACTIC #### [address] Creatinine [Mass/Vol] 1.22 mg/dL Normal 0.70-1.30 [facility] Comment on above: Performed By: #### C UBLD, LACTIC #### [address] Creatinine Clr Calc Pharmacy 76.25 Normal [facility] Comment on above: Performed By: #### C UBLD, LACTIC #### [place] [address] [place] GFR/1.73 sq M.predicted MDRD (S/P/Bld) [Vol rate/Area] mL/min/{1.73_m2} Normal [facility] Comment on above: Performed By: #### C UBLD, LACTIC #### [address] Glucose [Mass/Vol] 152 mg/dL High 70-100 [facility] Comment on above: Result Comment: Calcium Glucose Reference Range is dependent on time and content of last meal. Glucose of more than 200 mg/dL in a nonstressed, ambulatory subject supports the diagnosis of Diabetes Mellitus. ADA recommended reference range Performed By: #### C UBLD, LACTIC #### [address] Potassium [Moles/Vol] 4.1 mmol/L Normal 3.5-5.1 [facility] Comment on above: Performed By: #### C UBLD, LACTIC #### [place] [address] [place] Sodium [Moles/Vol] 137 mmol/L Normal 136-145 [facility] Comment on above: Performed By: #### C UBLD, LACTIC #### [address] Urea nitrogen [Mass/Vol] 13 mg/dL Normal 7-25 [facility] Comment on above: Performed By: #### C UBLD, LACTIC #### [address] Glucose Poct Glucometerson 0 07-24-2023 Glucose [Mass/Vol] 186 mg/dL Normal [facility] Comment on above: Result Comment: [facility] Glucose Reference Range is dependent on time and content of last meal. Glucose of more than 200 mg/dL in a nonstressed, ambulatory subject supports the diagnosis of Diabetes Mellitus. PERFORMED BY: [place] [address] PATHOLOGIST CERTIFIED ORTHOTIST PRACTICE MANAGER FREDA ALCAZAR M.D. Performed By: #### C UU, ADDONUAPLUS #### [address] Glucose [Mass/Vol] 153 mg/dL Normal [facility] Comment on above: Result Comment: [facility] Glucose Reference Range is dependent on time and content of last meal. Glucose of more than 200 mg/dL in a nonstressed, ambulatory subject supports the diagnosis of Diabetes Mellitus. PERFORMED BY: [place] [address] PATHOLOGIST CERTIFIED ORTHOTIST PRACTICE MANAGER FREDA ALCAZAR M.D. Performed By: #### C UBLD, LACTIC #### [address] Commemt1 Glu2: Cleaned Meter Normal [facility] Comment on above: Result Comment: PERF ORMED BY: [place] [address] PATHOLOGIST CERTIFIED ORTHOTIST PRACTICE MANAGER FREDA ALCAZAR M.D. Performed By: #### G LULS #### Point of Care testing , Glucose [Mass/Vol] 214 mg/dL Normal [facility] Comment on above: Result Comment: Calcium om Glucose Reference Range is dependent on time and content of last meal. Glucose of more than 200 mg/dL in a nonstressed, ambulatory subject supports the diagnosis of Diabetes Mellitus. Performed By: #### G LULS #### Point of Care testing , Glucose [Mass/Vol] 155 mg/dL Normal [facility] Comment on above: Result Comment: Calcium om Glucose Reference Range is dependent on time and content of last meal. Glucose of more than 200 mg/dL in a nonstressed, ambulatory subject supports the diagnosis of Diabetes Mellitus. PERFORMED BY: [place] [address] PATHOLOGIST CERTIFIED ORTHOTIST PRACTICE MANAGER FREDA ALCAZAR M.D. Performed By: #### G LUCHECO #### Point of Care testing , Hypochromia LM Ql (Bld)Order ed By: Balbina Garzon on 07-24-2023 Hypochromia Ql (Bld) Slight [facility] Magnesiumon 07-24-2023 Magnesium [Mass/Vol] 2.0 mg/dL Normal 1.9-2.7 [facility] Comment on above: Result Comment: PERF ORMED BY: [place] [address] PATHOLOGIST CERTIFIED ORTHOTIST PRACTICE MANAGER FREDA ALCAZAR M.D. Performed By: #### C UBLD, LACTIC #### [address] Magnesium [Mass/volume] in S erika or PlasmaOrdered By: Monica Crocker on 07-24-2023 Magnesium [Mass/Vol] 2.0 mg/dL 1.9-2.7 [facility] No Panel InformationOrdered By: Luigi Napoles on 07-24-2023 Bedside Glucose Comment Glu2: cleaned meter [facility] Platelet adequacy [Presence] in Blood by Light microscopyOrdered By: Balbina Garzon on 07-24-2023 Platelets LM Ql (Bld) Normal Normal [facility] Platelet morphology finding [Identifier] in BloodOrdered By: Balbina Garzon on 07-24-2023 Platelet morphology finding Nom (Bld) Normal Normal [facility] Polychromasia [Presence] in Blood by Light microscopyOrdered By: Balbina Garzon on 07-24-2023 Polychromasia LM Ql (Bld) Slight [facility] RBC morphologyOrdered By: Conchis Garzon on 07-24-2023 RBC morphology finding Nom (Bld) N/A [facility] Scan and CBCon 07-24-2023 Anisocytosis Ql (Bld) Slight Normal [facility] Comment on above: Performed By: #### C UBLD, LACTIC #### [address] Basophils (Bld) [#/Vol] 0.1 10*3/uL Normal 0.0-0.2 [facility] Comment on above: Performed By: #### C UBLD, LACTIC #### [address] Basophils/100 WBC (Bld) 1.0 % Normal . [facility] Comment on above: Performed By: #### C UBLD, LACTIC #### [place] [address] [place] Eosinophils (Bld) [#/Vol] 0.4 10*3/uL Normal 0.0-0.45 [facility] Comment on above: Performed By: #### C UBLD, LACTIC #### [address] Eosinophils/100 WBC (Bld) 3.6 % Normal . [facility] Comment on above: Performed By: #### C UBLD, LACTIC #### [address] Erythrocyte distribution width (RBC) [Ratio] 15.5 % High 12.0-14.8 [facility] Comment on above: Performed By: #### C UBLD, LACTIC #### [address] Hematocrit (Bld) [Volume fraction] 39.7 % Normal 38.8-50.0 [facility] Comment on above: Performed By: #### C UBLD, LACTIC #### [address] Hemoglobin (Bld) [Mass/Vol] 12.1 g/dL Low 13.0-17.0 [facility] Comment on above: Performed By: #### C UBLD, LACTIC #### [address] Hypochromasia Slight Normal [facility] Comment on above: Performed By: #### C UBLD, LACTIC #### [address] Lymphocytes (Bld) [#/Vol] 1.4 10*3/uL Normal 1.00-4.8 [facility] Comment on above: Performed By: #### C UBLD, LACTIC #### [address] Lymphocytes/100 WBC (Bld) 12.5 % Normal . [facility] Comment on above: Performed By: #### C UBLD, LACTIC #### [address] MCH (RBC) [Entitic mass] 25.8 pg Low 27.5-35.2 [facility] Comment on above: Performed By: #### C UBLD, LACTIC #### [address] MCV (RBC) [Entitic vol] 85.1 fL Normal 83.5-101 [facility] Comment on above: Performed By: #### C UBLD, LACTIC #### [address] Mean Corpuscular HGB Conc 30.4 g/dL Low 32.5-35.6 [facility] Comment on above: Performed By: #### C UBLD, LACTIC #### [address] Monocytes (Bld) [#/Vol] 1.0 10*3/uL High 0.0-0.8 [facility] Comment on above: Performed By: #### C UBLD, LACTIC #### [address] [place] [address] [place] Monocytes/100 WBC (Bld) 8.3 % Normal . [facility] Comment on above: Performed By: #### C UBLD, LACTIC #### [address] Neutrophils (Bld) [#/Vol] 8.6 10*3/uL High 1.8-7.7 [facility] Comment on above: Performed By: #### C UBLD, LACTIC #### [address] Neutrophils/100 WBC (Bld) 74.6 % Normal . [facility] Comment on above: Performed By: #### C UBLD, LACTIC #### [address] NRBC% 0.0 /100{WBC} Normal 0-0.5 [facility] Comment on above: Performed By: #### C UBLD, LACTIC #### [address] Platelet Estimate Normal Normal Normal [facility] Comment on above: Performed By: #### C UBLD, LACTIC #### [address] Platelet mean volume (Bld) [Entitic vol] 7.6 fL Normal 6.6-10.1 [facility] Comment on above: Performed By: #### C UBLD, LACTIC #### [address] Platelet Morphology Normal Normal Normal [facility] Comment on above: Result Comment: PERF ORMED BY: [place] [address] PATHOLOGIST CERTIFIED ORTHOTIST PRACTICE MANAGER FREDA ALCAZAR M.D. Performed By: #### C UBLD, LACTIC #### [place] [address] [place] Platelets (Bld) [#/Vol] 325 10*3/uL Normal 150-450 [facility] Comment on above: Performed By: #### C UBLD, LACTIC #### [address] Polychromasia Slight Normal [facility] Comment on above: Performed By: #### C UBLD, LACTIC #### [address] RBC (Bld) [#/Vol] 4.67 10*6/uL Normal 3.90-5.60 [facility] Comment on above: Performed By: #### C UBLD, LACTIC #### [address] WBC (Bld) [#/Vol] 11.5 10*3/uL High 4.1-10.5 [facility] Comment on above: Performed By: #### C UBLD, LACTIC #### [address] Serum or plasma trough vanco mycin levelOrdered By: Sarah Herron on 07-24-2023 Vancomycin trough [Mass/Vol] 17.0 ug/mL 10.0-20.0 [facility] Comment on above: Last dose: - Vancomycin [Mass/volume] in Serum or Plasma --peakOrdered By: Sarah Herron on 07-24-2023 Vancomycin peak [Mass/Vol] 23.2 ug/mL 20.0-40.0 [facility] Comment on above: Last dose: - Vancomycin,Peakon 07-24-2023 Vancomycin,Peak 23.2 ug/mL Normal 20.0-40.0 [facility] Comment on above: Order Comment: Comme nt ?DRAW 1 HOUR AFTER INFUSION COMPLETES Date of last dose?: 20230722 Time of last dose?: 1300 Result Comment: Last dose: - PERFORMED BY: [place] [address] PATHOLOGIST CERTIFIED ORTHOTIST PRACTICE MANAGER FREDA ALCAZAR M.D. Performed By: #### G LUCHECO #### Point of Care testing , Vancomycin,Troughon 07-24-19 24 Vancomycin,Trough 17.0 ug/mL Normal 10.0-20.0 [facility] Comment on above: Order Comment: Time of next dose? 0100 Date of last dose?: 20230722 Time of last dose?: 1300 Result Comment: Last dose: - PERFORMED BY: [place] [address] PATHOLOGIST CERTIFIED ORTHOTIST PRACTICE MANAGER FREDA ALCAZAR M.D. Performed By: #### V ANCT #### [place] [id number] [facility] XR chest 1V portableon 07-23 XR chest 1V portable [facility] Main [place] [address] [place] [address] XRay Report Signed Patient: Corona Wharton MR#: [id number] 1 : 1945 Acct:[id number] Age/Sex: 78 / M ADM Date: 07/19/23 Loc: Room: [address] [place] [address] Type: ADM IN Attending Dr: Luigi Napoles [...] Yost Jr., DFaustoOFausto07/24/2023 8:33 AM Dictation Location: [place] [address] Transcribed By: [facility] 07/24/23832 Dictated By: Kuldeep Yost Jr, DO 07/24/23831 Signed By: 07/24/23832 Normal [facility] Basic Metabolic Panelon Anion gap [Moles/Vol] 9.1 mmol/L Normal 6.0-15.0 [facility] Comment on above: Performed By: #### G LULS #### Point of Care testing , Calcium [Mass/Vol] 8.8 mg/dL Normal 8.6-10.3 [facility] Comment on above: Performed By: #### G LULS #### Point of Care testing , Chloride [Moles/Vol] 98 mmol/L Normal 98-107 [facility] Comment on above: Performed By: #### G LULS #### Point of Care testing , CO2 [Moles/Vol] 33.0 mmol/L High 21.0-31.0 [facility] Comment on above: Performed By: #### G LULS #### Point of Care testing , Creatinine [Mass/Vol] 1.21 mg/dL Normal 0.70-1.30 [facility] Comment on above: Performed By: #### G LULS #### Point of Care testing , Creatinine Clr Calc Pharmacy 76.77 Normal [facility] Comment on above: Result Comment: PERF ORMED BY: [address] [address] PATHOLOGIST CERTIFIED ORTHOTIST PRACTICE MANAGER FREDA ALCAZAR M.D. Performed By: #### G LULS #### Point of Care testing , GFR/1.73 sq M.predicted MDRD (S/P/Bld) [Vol rate/Area] mL/min/{1.73_m2} Normal [facility] Comment on above: Performed By: #### G LULS #### Point of Care testing , Glucose [Mass/Vol] 164 mg/dL High 70-100 [facility] Comment on above: Result Comment: Calcium Glucose Reference Range is dependent on time and content of last meal. Glucose of more than 200 mg/dL in a nonstressed, ambulatory subject supports the diagnosis of Diabetes Mellitus. ADA recommended reference range Performed By: #### G LULS #### Point of Care testing , Potassium [Moles/Vol] 4.1 mmol/L Normal 3.5-5.1 [facility] Comment on above: Performed By: #### G LULS #### Point of Care testing , Sodium [Moles/Vol] 136 mmol/L Normal 136-145 [facility] Comment on above: Performed By: #### G LULS #### Point of Care testing , Urea nitrogen [Mass/Vol] 14 mg/dL Normal 7-25 [facility] Comment on above: Performed By: #### G LULS #### Point of Care testing , Complete Blood Count Auto Di ffon 07-23-2023 Basophils (Bld) [#/Vol] 0.1 10*3/uL Normal 0.0-0.2 [facility] Comment on above: Result Comment: PERF ORMED BY: [facility] [place] [address] PATHOLOGIST CERTIFIED ORTHOTIST PRACTICE MANAGER FREDA ALCAZAR M.D. Performed By: #### G LULS #### Point of Care testing , Basophils/100 WBC (Bld) 0.9 % Normal . [facility] Comment on above: Performed By: #### G LULS #### Point of Care testing , Eosinophils (Bld) [#/Vol] 0.4 10*3/uL Normal 0.0-0.45 [facility] Comment on above: Performed By: #### G LULS #### Point of Care testing , Eosinophils/100 WBC (Bld) 3.0 % Normal . [facility] Comment on above: Performed By: #### G LULS #### Point of Care testing , Erythrocyte distribution width (RBC) [Ratio] 15.6 % High 12.0-14.8 [facility] Comment on above: Performed By: #### G LULS #### Point of Care testing , Hematocrit (Bld) [Volume fraction] 39.1 % Normal 38.8-50.0 [facility] Comment on above: Performed By: #### G LULS #### Point of Care testing , Hemoglobin (Bld) [Mass/Vol] 12.2 g/dL Low 13.0-17.0 [facility] Comment on above: Performed By: #### G LULS #### Point of Care testing , Lymphocytes (Bld) [#/Vol] 1.5 10*3/uL Normal 1.00-4.8 [facility] Comment on above: Performed By: #### G LULS #### Point of Care testing , Lymphocytes/100 WBC (Bld) 12.0 % Normal . [facility] Comment on above: Performed By: #### G LULS #### Point of Care testing , MCH (RBC) [Entitic mass] 26.3 pg Low 27.5-35.2 [facility] Comment on above: Performed By: #### G LULS #### Point of Care testing , MCV (RBC) [Entitic vol] 84.4 fL Normal 83.5-101 [facility] Comment on above: Performed By: #### G LULS #### Point of Care testing , Mean Corpuscular HGB Conc 31.1 g/dL Low 32.5-35.6 [facility] Comment on above: Performed By: #### G LULS #### Point of Care testing , Monocytes (Bld) [#/Vol] 1.1 10*3/uL High 0.0-0.8 [facility] Comment on above: Performed By: #### G LULS #### Point of Care testing , Monocytes/100 WBC (Bld) 8.2 % Normal . [facility] Comment on above: Performed By: #### G LULS #### Point of Care testing , Neutrophils (Bld) [#/Vol] 9.8 10*3/uL High 1.8-7.7 [facility] Comment on above: Performed By: #### G LULS #### Point of Care testing , Neutrophils/100 WBC (Bld) 75.9 % Normal . [facility] Comment on above: Performed By: #### G LULS #### Point of Care testing , NRBC% 0.0 /100{WBC} Normal 0-0.5 [facility] Comment on above: Performed By: #### G LULS #### Point of Care testing , Platelet mean volume (Bld) [Entitic vol] 7.7 fL Normal 6.6-10.1 [facility] Comment on above: Performed By: #### G LULS #### Point of Care testing , Platelets (Bld) [#/Vol] 328 10*3/uL Normal 150-450 [facility] Comment on above: Performed By: #### G LULS #### Point of Care testing , RBC (Bld) [#/Vol] 4.64 10*6/uL Normal 3.90-5.60 [facility] Comment on above: Performed By: #### G LULS #### Point of Care testing , WBC (Bld) [#/Vol] 12.9 10*3/uL High 4.1-10.5 [facility] Comment on above: Performed By: #### G LULS #### Point of Care testing , Glucose Poct Glucometerson 0 07-23-2023 Glucose [Mass/Vol] 158 mg/dL Normal [facility] Comment on above: Result Comment: Calcium Glucose Reference Range is dependent on time and content of last meal. Glucose of more than 200 mg/dL in a nonstressed, ambulatory subject supports the diagnosis of Diabetes Mellitus. PERFORMED BY: [place] [address] PATHOLOGIST CERTIFIED ORTHOTIST PRACTICE MANAGER FREDA ALCAZAR M.D. Performed By: #### C UBLD, LACTIC #### [address] Glucose [Mass/Vol] 160 mg/dL Normal [facility] Comment on above: Result Comment: Calcium Glucose Reference Range is dependent on time and content of last meal. Glucose of more than 200 mg/dL in a nonstressed, ambulatory subject supports the diagnosis of Diabetes Mellitus. PERFORMED BY: [place] [address] PATHOLOGIST CERTIFIED ORTHOTIST PRACTICE MANAGER FREDA ALCAZAR M.D. Performed By: #### C UBLD, LACTIC #### [address] Commemt1 Glu2: Cleaned Meter Normal [facility] Comment on above: Result Comment: PERF ORMED BY: [place] [address] PATHOLOGIST CERTIFIED ORTHOTIST PRACTICE MANAGER FREDA ALCAZAR M.D. Performed By: #### C UBLD, LACTIC #### [address] Glucose [Mass/Vol] 186 mg/dL Normal [facility] Comment on above: Result Comment: Calcium om Glucose Reference Range is dependent on time and content of last meal. Glucose of more than 200 mg/dL in a nonstressed, ambulatory subject supports the diagnosis of Diabetes Mellitus. Performed By: #### C UBLD, LACTIC #### [address] Glucose [Mass/Vol] 175 mg/dL Normal [facility] Comment on above: Result Comment: Calcium om Glucose Reference Range is dependent on time and content of last meal. Glucose of more than 200 mg/dL in a nonstressed, ambulatory subject supports the diagnosis of Diabetes Mellitus. PERFORMED BY: [place] [address] PATHOLOGIST CERTIFIED ORTHOTIST PRACTICE MANAGER FREDA ALCAZAR M.D. Performed By: #### G LULS #### Point of Care testing , B-Type Natriuretic Peptideon 07-22-2023 Natriuretic peptide B (Bld) [Mass/Vol] 270.0 pg/mL High 5-100 [facility] Comment on above: Order Comment: Comme nt Add on Result Comment: PERF ORMED BY: [place] [address] PATHOLOGIST CERTIFIED ORTHOTIST PRACTICE MANAGER FREDA ALCAZAR M.D. Performed By: #### C UBLD, LACTIC #### [address] Basic Metabolic Panelon 04-0 Anion gap [Moles/Vol] 8.3 mmol/L Normal 6.0-15.0 [facility] Comment on above: Performed By: #### G LULS #### Point of Care testing , Calcium [Mass/Vol] 8.7 mg/dL Normal 8.6-10.3 [facility] Comment on above: Performed By: #### G LULS #### Point of Care testing , Chloride [Moles/Vol] 98 mmol/L Normal 98-107 [facility] Comment on above: Performed By: #### G LULS #### Point of Care testing , CO2 [Moles/Vol] 34.9 mmol/L High 21.0-31.0 [facility] Comment on above: Performed By: #### G LULS #### Point of Care testing , Creatinine [Mass/Vol] 1.22 mg/dL Normal 0.70-1.30 [facility] Comment on above: Performed By: #### G LULS #### Point of Care testing , Creatinine Clr Calc Pharmacy 76.57 Normal [facility] Comment on above: Result Comment: PERF ORMED BY: [facility] [address] [place] [address] PATHOLOGIST CERTIFIED ORTHOTIST PRACTICE MANAGER FREDA ALCAZAR M.D. Performed By: #### G LULS #### Point of Care testing , GFR/1.73 sq M.predicted MDRD (S/P/Bld) [Vol rate/Area] mL/min/{1.73_m2} Normal [facility] Comment on above: Performed By: #### G LULS #### Point of Care testing , Glucose [Mass/Vol] 169 mg/dL High 70-100 [facility] Comment on above: Result Comment: [facility] Glucose Reference Range is dependent on time and content of last meal. Glucose of more than 200 mg/dL in a nonstressed, ambulatory subject supports the diagnosis of Diabetes Mellitus. ADA recommended reference range Performed By: #### G LULS #### Point of Care testing , Potassium [Moles/Vol] 4.2 mmol/L Normal 3.5-5.1 [facility] Comment on above: Performed By: #### G LULS #### Point of Care testing , Sodium [Moles/Vol] 137 mmol/L Normal 136-145 [facility] Comment on above: Performed By: #### G LULS #### Point of Care testing , Urea nitrogen [Mass/Vol] 15 mg/dL Normal 7-25 [facility] Comment on above: Performed By: #### G LULS #### Point of Care testing , Blood Cultureon 07-22-2023 Bacteria identified Cx Nom (Bld) NO GROWTH 5 DAYS PERFORMED BY: [place] [address] PATHOLOGIST CERTIFIED ORTHOTIST PRACTICE MANAGER FREDA ALCAZAR M.D. Normal [facility] Comment on above: Performed By: #### C UBLD, LACTIC #### [address] Bacteria identified Cx Nom (Bld) NO GROWTH 5 DAYS PERFORMED BY: [place] [address] PATHOLOGIST CERTIFIED ORTHOTIST PRACTICE MANAGER FREDA ALCAZAR M.D. Normal [facility] Comment on above: Performed By: #### C UBLD, LACTIC #### [facility] [address] [place] [address] Glucose Poct Glucometerson 0 07-22-2023 Glucose [Mass/Vol] 190 mg/dL Normal [facility] Comment on above: Result Comment: Calcium om Glucose Reference Range is dependent on time and content of last meal. Glucose of more than 200 mg/dL in a nonstressed, ambulatory subject supports the diagnosis of Diabetes Mellitus. PERFORMED BY: [place] [address] PATHOLOGIST CERTIFIED ORTHOTIST PRACTICE MANAGER FREDA ALCAZAR M.D. Performed By: #### C UBLD, LACTIC #### [address] Glucose [Mass/Vol] 194 mg/dL Normal [facility] Comment on above: Result Comment: Calcium om Glucose Reference Range is dependent on time and content of last meal. Glucose of more than 200 mg/dL in a nonstressed, ambulatory subject supports the diagnosis of Diabetes Mellitus. PERFORMED BY: [place] [address] PATHOLOGIST CERTIFIED ORTHOTIST PRACTICE MANAGER FREDA ALCAZAR M.D. Performed By: #### C UBLD, LACTIC #### [address] Commemt1 Glu2: Cleaned Meter Normal [facility] Comment on above: Result Comment: PERF ORMED BY: [place] [address] PATHOLOGIST CERTIFIED ORTHOTIST PRACTICE MANAGER FREDA ALCAZAR M.D. Performed By: #### C UBLD, LACTIC #### [facility] [address] Glucose [Mass/Vol] 215 mg/dL Normal [facility] Comment on above: Result Comment: Calcium om Glucose Reference Range is dependent on time and content of last meal. Glucose of more than 200 mg/dL in a nonstressed, ambulatory subject supports the diagnosis of Diabetes Mellitus. Performed By: #### C UBLD, LACTIC #### [facility] [address] Glucose [Mass/Vol] 146 mg/dL Normal [facility] Comment on above: Result Comment: Calcium om Glucose Reference Range is dependent on time and content of last meal. Glucose of more than 200 mg/dL in a nonstressed, ambulatory subject supports the diagnosis of Diabetes Mellitus. PERFORMED BY: [place] [address] PATHOLOGIST CERTIFIED ORTHOTIST PRACTICE MANAGER FREDA ALCAZAR M.D. Performed By: #### G LULS #### Point of Care testing , Natriuretic peptide B [Mass/ Vol]Ordered By: Sarah Herron on 07-22-2023 Natriuretic peptide B (Bld) [Mass/Vol] 270.0 pg/mL 5-100 [facility] Poikilocytosis [Presence] in Blood by Light microscopyOrdered By: Balbina Garzon on 07-22-2023 Poikilocytosis LM Ql (Bld) Slight [facility] Red blood cell stomatocyte d etectionOrdered By: Balbina Garzon on 07-22-2023 Stomatocytes LM Ql (Bld) Slight [facility] Scan and CBCon 07-22-2023 Anisocytosis Ql (Bld) Slight Normal [facility] Comment on above: Performed By: #### G LULS #### Point of Care testing , Basophils (Bld) [#/Vol] 0.2 10*3/uL Normal 0.0-0.2 [facility] Comment on above: Performed By: #### G LULS #### Point of Care testing , Basophils/100 WBC (Bld) 1.2 % Normal . [facility] Comment on above: Performed By: #### G LULS #### Point of Care testing , Eosinophils (Bld) [#/Vol] 0.3 10*3/uL Normal 0.0-0.45 [facility] Comment on above: Performed By: #### G LULS #### Point of Care testing , Eosinophils/100 WBC (Bld) 2.0 % Normal . [facility] Comment on above: Performed By: #### G LULS #### Point of Care testing , Erythrocyte distribution width (RBC) [Ratio] 15.6 % High 12.0-14.8 [facility] Comment on above: Performed By: #### G LULS #### Point of Care testing , Hematocrit (Bld) [Volume fraction] 40.8 % Normal 38.8-50.0 [facility] Comment on above: Performed By: #### G LULS #### Point of Care testing , Hemoglobin (Bld) [Mass/Vol] 12.3 g/dL Low 13.0-17.0 [facility] Comment on above: Performed By: #### G LULS #### Point of Care testing , Hypochromasia Moderate Normal [facility] Comment on above: Performed By: #### G LULS #### Point of Care testing , Lymphocytes (Bld) [#/Vol] 1.3 10*3/uL Normal 1.00-4.8 [facility] Comment on above: Performed By: #### G LULS #### Point of Care testing , Lymphocytes/100 WBC (Bld) 8.2 % Normal . [facility] Comment on above: Performed By: #### G LULS #### Point of Care testing , MCH (RBC) [Entitic mass] 25.6 pg Low 27.5-35.2 [facility] Comment on above: Performed By: #### G LULS #### Point of Care testing , MCV (RBC) [Entitic vol] 85.3 fL Normal 83.5-101 [facility] Comment on above: Performed By: #### G LULS #### Point of Care testing , Mean Corpuscular HGB Conc 30.0 g/dL Low 32.5-35.6 [facility] Comment on above: Performed By: #### G LULS #### Point of Care testing , Monocytes (Bld) [#/Vol] 1.1 10*3/uL High 0.0-0.8 [facility] Comment on above: Performed By: #### G LULS #### Point of Care testing , Monocytes/100 WBC (Bld) 6.8 % Normal . [facility] Comment on above: Performed By: #### G LULS #### Point of Care testing , Neutrophils (Bld) [#/Vol] 13.1 10*3/uL High 1.8-7.7 [facility] Comment on above: Performed By: #### G LULS #### Point of Care testing , Neutrophils/100 WBC (Bld) 81.8 % Normal . [facility] Comment on above: Performed By: #### G LULS #### Point of Care testing , NRBC% 0.0 /100{WBC} Normal 0-0.5 [facility] Comment on above: Performed By: #### G LULS #### Point of Care testing , Platelet Estimate Normal Normal Normal [facility] Comment on above: Performed By: #### G LULS #### Point of Care testing , Platelet mean volume (Bld) [Entitic vol] 7.8 fL Normal 6.6-10.1 [facility] Comment on above: Performed By: #### G LULS #### Point of Care testing , Platelet Morphology Normal Normal Normal [facility] Comment on above: Result Comment: PERF ORMED BY: [facility] [place] [address] PATHOLOGIST CERTIFIED ORTHOTIST PRACTICE MANAGER FREDA ALCAZAR M.D. Performed By: #### G LULS #### Point of Care testing , Platelets (Bld) [#/Vol] 330 10*3/uL Normal 150-450 [facility] Comment on above: Performed By: #### G LULS #### Point of Care testing , Poikilocytosis Slight Normal [facility] Comment on above: Performed By: #### G LULS #### Point of Care testing , Polychromasia Slight Normal [facility] Comment on above: Performed By: #### G LULS #### Point of Care testing , RBC (Bld) [#/Vol] 4.79 10*6/uL Normal 3.90-5.60 [facility] Comment on above: Performed By: #### G LULS #### Point of Care testing , Stomatocytes Slight Normal [facility] Comment on above: Performed By: #### G LULS #### Point of Care testing , WBC (Bld) [#/Vol] 16.1 10*3/uL High 4.1-10.5 [facility] Comment on above: Performed By: #### G LULS #### Point of Care testing , Vancomycin,Peakon 07-22-2023 Vancomycin,Peak 34.9 ug/mL Normal 20.0-40.0 [facility] Comment on above: Order Comment: Comme nt ?DRAW 1 HOUR AFTER INFUSION COMPLETES Date of last dose?: 20230721 Time of last dose?: 2299 Result Comment: Last dose: - PERFORMED BY: [address] [place] [address] PATHOLOGIST CERTIFIED ORTHOTIST PRACTICE MANAGER FREDA ALCAZAR M.D. Performed By: #### G LULS #### Point of Care testing , Vancomycin,Troughon 07-22-19 24 Vancomycin,Trough 16.9 ug/mL Normal 10.0-20.0 [facility] Comment on above: Result Comment: Last dose: - PERFORMED BY: [facility] [address] [facility] [place] [address] PATHOLOGIST CERTIFIED ORTHOTIST PRACTICE MANAGER FREDA ALCAZAR M.D. Performed By: #### G LULS #### Point of Care testing , Basic Metabolic Panelon Anion gap [Moles/Vol] 10.5 mmol/L Normal 6.0-15.0 [facility] Comment on above: Performed By: #### C UBLD, LACTIC #### [address] Calcium [Mass/Vol] 8.4 mg/dL Low 8.6-10.3 [facility] Comment on above: Performed By: #### C UBLD, LACTIC #### [address] Chloride [Moles/Vol] 101 mmol/L Normal 98-107 [facility] Comment on above: Performed By: #### C UBLD, LACTIC #### [address] CO2 [Moles/Vol] 30.8 mmol/L Normal 21.0-31.0 [facility] Comment on above: Performed By: #### C UBLD, LACTIC #### [address] Creatinine [Mass/Vol] 1.26 mg/dL Normal 0.70-1.30 [facility] Comment on above: Performed By: #### C UBLD, LACTIC #### [place] [address] [place] Creatinine Clr Calc Pharmacy 74.56 Normal [facility] Comment on above: Result Comment: PERF ORMED BY: [place] [address] PATHOLOGIST CERTIFIED ORTHOTIST PRACTICE MANAGER FREDA ALCAZAR M.D. Performed By: #### C UBLD, LACTIC #### [place] [address] [place] GFR/1.73 sq M.predicted MDRD (S/P/Bld) [Vol rate/Area] 58.743 mL/min/{1.73_m2} Normal [facility] Comment on above: Performed By: #### C UBLD, LACTIC #### [address] Glucose [Mass/Vol] 210 mg/dL High 70-100 [facility] Comment on above: Result Comment: [facility] Glucose Reference Range is dependent on time and content of last meal. Glucose of more than 200 mg/dL in a nonstressed, ambulatory subject supports the diagnosis of Diabetes Mellitus. ADA recommended reference range Performed By: #### C UBLD, LACTIC #### [address] Potassium [Moles/Vol] 4.3 mmol/L Normal 3.5-5.1 [facility] Comment on above: Performed By: #### C UBLD, LACTIC #### [address] Sodium [Moles/Vol] 138 mmol/L Normal 136-145 [facility] Comment on above: Performed By: #### C UBLD, LACTIC #### [address] Urea nitrogen [Mass/Vol] 16 mg/dL Normal 7-25 [facility] Comment on above: Performed By: #### C UBLD, LACTIC #### [address] angio neckon 07-21-2023 CT angio neck [facility] [place] [address] CT Scan Report Signed Patient: Corona Wharton MR#: [id number] 1 : 1945 Acct:[id number] Age/Sex: 78 / M ADM Date: 07/19/23 Loc: Room: [address] [place] [address] Type: ADM IN Attending Dr: Luigi Napoles DO Copies to: DO Luigi Moore DO Ordering Provider: Matthew Bean DO Date of Service: 07/21/23 CT/CT angio head: stroke ([id number]) CT/CT angio neck: stroke CT angio head, [...] Yost Jr., Najma07/21/2023 2:40 PM Dictation Location: [place] [address] Transcribed By: [facility] 07/21/23 1440 Dictated By: Kuldeep Yost Jr, DO 07/21/23 1432 Signed By: 07/21/23 1440 Normal [facility] Complete Blood Count Auto Di ffon 07-21-2023 Basophils (Bld) [#/Vol] 0.1 10*3/uL Normal 0.0-0.2 [facility] Comment on above: Result Comment: PERF ORMED BY: [place] [address] PATHOLOGIST CERTIFIED ORTHOTIST PRACTICE MANAGER FREDA ALCAZAR M.D. Performed By: #### C UBLD, LACTIC #### [address] Basophils/100 WBC (Bld) 1.0 % Normal . [facility] Comment on above: Performed By: #### C UBLD, LACTIC #### [facility] [address] [place] [address] [place] Eosinophils (Bld) [#/Vol] 0.5 10*3/uL High 0.0-0.45 [facility] Comment on above: Performed By: #### C UBLD, LACTIC #### [place] [address] [place] Eosinophils/100 WBC (Bld) 3.7 % Normal . [facility] Comment on above: Performed By: #### C UBLD, LACTIC #### [address] Erythrocyte distribution width (RBC) [Ratio] 15.6 % High 12.0-14.8 [facility] Comment on above: Performed By: #### C UBLD, LACTIC #### [address] Hematocrit (Bld) [Volume fraction] 42.7 % Normal 38.8-50.0 [facility] Comment on above: Performed By: #### C UBLD, LACTIC #### [place] [address] [place] Hemoglobin (Bld) [Mass/Vol] 12.8 g/dL Low 13.0-17.0 [facility] Comment on above: Performed By: #### C UBLD, LACTIC #### [place] [address] [place] Lymphocytes (Bld) [#/Vol] 1.9 10*3/uL Normal 1.00-4.8 [facility] Comment on above: Performed By: #### C UBLD, LACTIC #### [place] [address] [place] Lymphocytes/100 WBC (Bld) 13.7 % Normal . [facility] Comment on above: Performed By: #### C UBLD, LACTIC #### [address] MCH (RBC) [Entitic mass] 25.9 pg Low 27.5-35.2 [facility] Comment on above: Performed By: #### C UBLD, LACTIC #### [address] MCV (RBC) [Entitic vol] 86.1 fL Normal 83.5-101 [facility] Comment on above: Performed By: #### C UBLD, LACTIC #### [address] Mean Corpuscular HGB Conc 30.1 g/dL Low 32.5-35.6 [facility] Comment on above: Performed By: #### C UBLD, LACTIC #### [place] [address] [place] Monocytes (Bld) [#/Vol] 1.0 10*3/uL High 0.0-0.8 [facility] Comment on above: Performed By: #### C UBLD, LACTIC #### [place] [address] [place] Monocytes/100 WBC (Bld) 7.1 % Normal . [facility] Comment on above: Performed By: #### C UBLD, LACTIC #### [place] [address] [place] Neutrophils (Bld) [#/Vol] 10.6 10*3/uL High 1.8-7.7 [facility] Comment on above: Performed By: #### C UBLD, LACTIC #### [place] [address] [place] Neutrophils/100 WBC (Bld) 74.5 % Normal . [facility] Comment on above: Performed By: #### C UBLD, LACTIC #### [place] [address] [place] NRBC% 0.1 /100{WBC} Normal 0-0.5 [facility] Comment on above: Performed By: #### C UBLD, LACTIC #### [address] Platelet mean volume (Bld) [Entitic vol] 7.9 fL Normal 6.6-10.1 [facility] Comment on above: Performed By: #### C UBLD, LACTIC #### [address] Platelets (Bld) [#/Vol] 312 10*3/uL Normal 150-450 [facility] Comment on above: Performed By: #### C UBLD, LACTIC #### [address] RBC (Bld) [#/Vol] 4.95 10*6/uL Normal 3.90-5.60 [facility] Comment on above: Performed By: #### C UBLD, LACTIC #### [address] WBC (Bld) [#/Vol] 14.2 10*3/uL High 4.1-10.5 [facility] Comment on above: Performed By: #### C UBLD, LACTIC #### [address] Glucose Poct Glucometerson 0 07-21-2023 Glucose [Mass/Vol] 177 mg/dL Normal [facility] Comment on above: Result Comment: Calcium om Glucose Reference Range is dependent on time and content of last meal. Glucose of more than 200 mg/dL in a nonstressed, ambulatory subject supports the diagnosis of Diabetes Mellitus. PERFORMED BY: [place] [address] PATHOLOGIST CERTIFIED ORTHOTIST PRACTICE MANAGER FREDA ALCAZAR M.D. Performed By: #### C UBLD, LACTIC #### [address] Commemt1 Glu2: Cleaned Meter Normal [facility] Comment on above: Result Comment: PERF ORMED BY: [place] [address] PATHOLOGIST CERTIFIED ORTHOTIST PRACTICE MANAGER FREDA ALCAZAR M.D. Performed By: #### G LULS #### Point of Care testing , Glucose [Mass/Vol] 179 mg/dL Normal [facility] Comment on above: Result Comment: Calcium om Glucose Reference Range is dependent on time and content of last meal. Glucose of more than 200 mg/dL in a nonstressed, ambulatory subject supports the diagnosis of Diabetes Mellitus. Performed By: #### G LULS #### Point of Care testing , Commemt1 Glu2: Cleaned Meter Normal [facility] Comment on above: Result Comment: PERF ORMED BY: [place] [address] PATHOLOGIST CERTIFIED ORTHOTIST PRACTICE MANAGER FREDA ALCAZAR M.D. Performed By: #### C UBLD, LACTIC #### [address] Glucose [Mass/Vol] 240 mg/dL Normal [facility] Comment on above: Result Comment: Calcium om Glucose Reference Range is dependent on time and content of last meal. Glucose of more than 200 mg/dL in a nonstressed, ambulatory subject supports the diagnosis of Diabetes Mellitus. Performed By: #### C UBLD, LACTIC #### [address] Commemt1 Glu2: Cleaned Meter Normal [facility] Comment on above: Result Comment: PERF ORMED BY: [place] [address] PATHOLOGIST CERTIFIED ORTHOTIST PRACTICE MANAGER FREDA ALCAZAR M.D. Performed By: #### G LULS #### Point of Care testing , Glucose [Mass/Vol] 181 mg/dL Normal [facility] Comment on above: Result Comment: Calcium om Glucose Reference Range is dependent on time and content of last meal. Glucose of more than 200 mg/dL in a nonstressed, ambulatory subject supports the diagnosis of Diabetes Mellitus. Performed By: #### G LULS #### Point of Care testing , MR head/brain wo [facility] 07-20 MR head/brain wo [facility] [place] [place] [address] MRI Report Signed Patient: Corona Wharton MR#: [id number] 1 : 1945 Acct:[id number] Age/Sex: 78 / M ADM Date: 07/19/23 Loc: Room: [address] [place] [address] Type: ADM IN Attending Dr: Luigi Napoles [...] Yost Jr., D.OFausto07/21/2023 9:07 AM Dictation Location: [place] [address] Transcribed By: [facility] 07/21/23 0907 Dictated By: Kuldeep Yost Jr, DO 07/21/23 0856 Signed By: 07/21/23 0907 Normal [facility] Magnesiumon 07-21-2023 Magnesium [Mass/Vol] 1.8 mg/dL Low 1.9-2.7 [facility] Comment on above: Result Comment: PERF ORMED BY: [address] [place] [address] PATHOLOGIST CERTIFIED ORTHOTIST PRACTICE MANAGER FREDA ALCAZAR M.D. Performed By: #### C UBLD, LACTIC #### [facility] [address] [place] [address] A1C with Estimated Average G nichellen 07-20-2023 Glucose [Mass/Vol] 272 mg/dL Normal [facility] Comment on above: Result Comment: PERF ORMED BY: [place] [address] PATHOLOGIST CERTIFIED ORTHOTIST PRACTICE MANAGER FREDA ALCAZAR M.D. Performed By: #### C UU, ADDONUAPLUS #### [address] HbA1c (Bld) [Mass fraction] 11.1 % High 4.3-5.6 [facility] Comment on above: Result Comment: Incr eased risk for diabetes: 5.7 - 6.4 diabetes: >6.4 glycemic control for adults with diabetes: <7.0 Performed By: #### C UU, ADDONUAPLUS #### [facility] [address] [place] [address] Alanine aminotransferase [En zymatic activity/volume] in Serum or PlasmaOrdered By: Balbina Garzon on 07-20-2023 ALT [Catalytic activity/Vol] 15 U/L 7-52 [facility] Albumin [Mass/volume] in Ser um or Plasma by Bromocresol green (BCG) dye binding methoOrdered By: Balbina Garzon on 07-20-2023 Albumin BCG dye [Mass/Vol] 3.2 g/dL 3.5-5.7 [facility] Alkaline phosphatase [Enzyma tic activity/volume] in Serum or PlasmaOrdered By: Balbina Garzon on 07-20-2023 ALP [Catalytic activity/Vol] 73 U/L 34-104 [facility] Aspartate aminotransferase [ Enzymatic activity/volume] in Serum or PlasmaOrdered By: Balbina Garzon on 07-20-2023 AST [Catalytic activity/Vol] 21 U/L 13-39 [facility] Bilirubin.total [Mass/volume ] in Serum or PlasmaOrdered By: Balbina Garzon on 07-20-2023 Bilirubin [Mass/Vol] 0.5 mg/dL 0.3-1.0 [facility] Blood Cultureon 07-20-2023 Bacteria identified Cx Nom (Bld) NO GROWTH 5 DAYS PERFORMED BY: [place] [address] PATHOLOGIST CERTIFIED ORTHOTIST PRACTICE MANAGER FREDA ALCAZAR M.D. Normal [facility] Comment on above: Performed By: #### C UBLD, LACTIC #### [facility] [address] Bacteria identified Cx Nom (Bld) NO GROWTH 5 DAYS PERFORMED BY: [place] [address] PATHOLOGIST CERTIFIED ORTHOTIST PRACTICE MANAGER FREDA ALCAZAR M.D. Normal [facility] Comment on above: Performed By: #### C UBLD, LACTIC #### [address] Cholesterol [Mass/volume] in Serum or PlasmaOrdered By: Balbina Garzon on 07-20-2023 Cholesterol [Mass/Vol] 212 mg/dL 140-200 [facility] Comment on above: Chol less than 200 m g/dl low riskChol 201-239 mg/dl borderline riskChol 240 mg/dl and greater high risk Cholesterol in LDL Calc [Mas s/Vol]Ordered By: Balbina Garzno on 07-20-2023 Cholesterol in LDL [Mass/Vol] 140 mg/dL 0-100 [facility] Comment on above: LDL ATP III CLASSIFI CATIONLDL less than 100 mg/dL OptimalLDL 100-129 mg/dL Near or above optimalLDL 130-159 mg/dL Borderline highLDL 160-189 mg/dL HighLDL greater than 189 mg/dL Very high Cholesterol in VLDL Calc [Ma ss/Vol]Ordered By: Balbina Garzon on 07-20-2023 Cholesterol in VLDL [Mass/Vol] 26 mg/dL [facility] Complete Blood Count Auto Di ffon 07-20-2023 Basophils (Bld) [#/Vol] 0.2 10*3/uL Normal 0.0-0.2 [facility] Comment on above: Result Comment: PERF ORMED BY: [place] [address] PATHOLOGIST CERTIFIED ORTHOTIST PRACTICE MANAGER FREDA ALCAZAR M.D. Performed By: #### C UBLD, LACTIC #### [facility] [address] [place] [address] [place] Basophils/100 WBC (Bld) 1.3 % Normal . [facility] Comment on above: Performed By: #### C UBLD, LACTIC #### [place] [address] [place] Eosinophils (Bld) [#/Vol] 0.6 10*3/uL High 0.0-0.45 [facility] Comment on above: Performed By: #### C UBLD, LACTIC #### [place] [address] [place] Eosinophils/100 WBC (Bld) 4.1 % Normal . [facility] Comment on above: Performed By: #### C UBLD, LACTIC #### [address] Erythrocyte distribution width (RBC) [Ratio] 15.4 % High 12.0-14.8 [facility] Comment on above: Performed By: #### C UBLD, LACTIC #### [address] Hematocrit (Bld) [Volume fraction] 39.6 % Normal 38.8-50.0 [facility] Comment on above: Performed By: #### C UBLD, LACTIC #### [place] [address] [place] Hemoglobin (Bld) [Mass/Vol] 12.2 g/dL Low 13.0-17.0 [facility] Comment on above: Performed By: #### C UBLD, LACTIC #### [place] [address] [place] Lymphocytes (Bld) [#/Vol] 2.2 10*3/uL Normal 1.00-4.8 [facility] Comment on above: Performed By: #### C UBLD, LACTIC #### [place] [address] [place] Lymphocytes/100 WBC (Bld) 15.1 % Normal . [facility] Comment on above: Performed By: #### C UBLD, LACTIC #### [address] MCH (RBC) [Entitic mass] 26.5 pg Low 27.5-35.2 [facility] Comment on above: Performed By: #### C UBLD, LACTIC #### [address] MCV (RBC) [Entitic vol] 85.8 fL Normal 83.5-101 [facility] Comment on above: Performed By: #### C UBLD, LACTIC #### [address] Mean Corpuscular HGB Conc 30.9 g/dL Low 32.5-35.6 [facility] Comment on above: Performed By: #### C UBLD, LACTIC #### [address] Monocytes (Bld) [#/Vol] 1.1 10*3/uL High 0.0-0.8 [facility] Comment on above: Performed By: #### C UBLD, LACTIC #### [place] [address] [place] Monocytes/100 WBC (Bld) 7.5 % Normal . [facility] Comment on above: Performed By: #### C UBLD, LACTIC #### [address] Neutrophils (Bld) [#/Vol] 10.4 10*3/uL High 1.8-7.7 [facility] Comment on above: Performed By: #### C UBLD, LACTIC #### [address] Neutrophils/100 WBC (Bld) 72.0 % Normal . [facility] Comment on above: Performed By: #### C UBLD, LACTIC #### [address] NRBC% 0.4 /100{WBC} Normal 0-0.5 [facility] Comment on above: Performed By: #### C UBLD, LACTIC #### [address] Platelet mean volume (Bld) [Entitic vol] 8.6 fL Normal 6.6-10.1 [facility] Comment on above: Performed By: #### C UBLD, LACTIC #### [address] Platelets (Bld) [#/Vol] 345 10*3/uL Normal 150-450 [facility] Comment on above: Performed By: #### C UBLD, LACTIC #### [address] RBC (Bld) [#/Vol] 4.61 10*6/uL Normal 3.90-5.60 [facility] Comment on above: Performed By: #### C UBLD, LACTIC #### [address] WBC (Bld) [#/Vol] 14.5 10*3/uL High 4.1-10.5 [facility] Comment on above: Performed By: #### C UBLD, LACTIC #### [address] Comprehensive Metabolic Pane jeanna 07-20-2023 Albumin [Mass/Vol] 3.2 g/dL Low 3.5-5.7 [facility] Comment on above: Performed By: #### C UBLD, LACTIC #### [address] Albumin/Globulin [Mass ratio] 1.3 {ratio} Normal [facility] Comment on above: Performed By: #### C UBLD, LACTIC #### [address] ALP [Catalytic activity/Vol] 73 U/L Normal 34-104 [facility] Comment on above: Performed By: #### C UBLD, LACTIC #### [address] ALT [Catalytic activity/Vol] 15 U/L Normal 7-52 [facility] Comment on above: Performed By: #### C UBLD, LACTIC #### [address] Anion gap [Moles/Vol] 9.1 mmol/L Normal 6.0-15.0 [facility] Comment on above: Performed By: #### C UBLD, LACTIC #### [address] AST [Catalytic activity/Vol] 21 U/L Normal 13-39 [facility] Comment on above: Performed By: #### C UBLD, LACTIC #### [address] Bilirubin [Mass/Vol] 0.5 mg/dL Normal 0.3-1.0 [facility] Comment on above: Performed By: #### C UBLD, LACTIC #### [address] Calcium [Mass/Vol] 8.7 mg/dL Normal 8.6-10.3 [facility] Comment on above: Performed By: #### C UBLD, LACTIC #### [place] [address] [place] Chloride [Moles/Vol] 102 mmol/L Normal 98-107 [facility] Comment on above: Performed By: #### C UBLD, LACTIC #### [place] [address] [place] CO2 [Moles/Vol] 30.1 mmol/L Normal 21.0-31.0 [facility] Comment on above: Performed By: #### C UBLD, LACTIC #### [place] [address] [place] Creatinine [Mass/Vol] 1.30 mg/dL Normal 0.70-1.30 [facility] Comment on above: Performed By: #### C UBLD, LACTIC #### [place] [address] [place] Creatinine Clr Calc Pharmacy 72.15 Normal [facility] Comment on above: Performed By: #### C UBLD, LACTIC #### [place] [id number] [place] GFR/1.73 sq M.predicted MDRD (S/P/Bld) [Vol rate/Area] 56.581 mL/min/{1.73_m2} Normal [facility] Comment on above: Performed By: #### C UBLD, LACTIC #### [address] Globulin (S) [Mass/Vol] 2.5 g/dL Normal [facility] Comment on above: Performed By: #### C UBLD, LACTIC #### [address] Glucose [Mass/Vol] 228 mg/dL High 70-100 [facility] Comment on above: Result Comment: [facility] Glucose Reference Range is dependent on time and content of last meal. Glucose of more than 200 mg/dL in a nonstressed, ambulatory subject supports the diagnosis of Diabetes Mellitus. ADA recommended reference range Performed By: #### C UBLD, LACTIC #### [address] Potassium [Moles/Vol] 4.2 mmol/L Normal 3.5-5.1 [facility] Comment on above: Performed By: #### C UBLD, LACTIC #### [address] Protein [Mass/Vol] 5.7 g/dL Low 6.4-8.9 [facility] Comment on above: Performed By: #### C UBLD, LACTIC #### [address] Sodium [Moles/Vol] 137 mmol/L Normal 136-145 [facility] Comment on above: Performed By: #### C UBLD, LACTIC #### [address] Urea nitrogen [Mass/Vol] 17 mg/dL Normal 7-25 [facility] Comment on above: Performed By: #### C UBLD, LACTIC #### [address] [facility] echo transthoracicon [facility] echo transthoracic [facility] [place] [address] [place] [address] Echocardiogram Signed Patient: Corona Wharton MR#: [id number] 1 : 1945 Acct:[id number] Age/Sex: 78 / M ADM Date: 07/19/23 Loc: Room: [address] [place] [address] Type: ADM IN Attending Dr: Luigi Napoles DO Ordering Provider: Balbina Garzon DO Date of Service: 07/20/2309/06/658 [facility] echo transthoracic: edema Copies to: Thom Teran MD, [facility] Balbina Garzon DO BSA: 2.7 m2 [...] P.4 mmHg MV V2 VTI: 30.1 cm Electronically signed by: THOM TERAN MD, [facility] on 07/20/2023 03:02 PM Transcribed By: SCV Performed At: 07/20/23 1347 Signed By: Thom Teran MD, [facility] 07/20/23 9185 Normal [facility] Globulin Calc (S) [Mass/Vol] Ordered By: Balbina Garzon on 07-20-2023 Globulin (S) [Mass/Vol] 2.5 g/dL [facility] Glucose Poct Glucometerson 0 07-20-2023 Glucose [Mass/Vol] 201 mg/dL Normal [facility] Comment on above: Result Comment: Calcium om Glucose Reference Range is dependent on time and content of last meal. Glucose of more than 200 mg/dL in a nonstressed, ambulatory subject supports the diagnosis of Diabetes Mellitus. PERFORMED BY: [place] [address] PATHOLOGIST CERTIFIED ORTHOTIST PRACTICE MANAGER FREDA ALCAZAR M.D. Performed By: #### G LULS #### Point of Care testing , Commemt1 Glu2: Cleaned Meter Normal [facility] Comment on above: Result Comment: PERF ORMED BY: [place] [address] PATHOLOGIST CERTIFIED ORTHOTIST PRACTICE MANAGER FREDA ALCAZAR M.D. Performed By: #### G LULS #### Point of Care testing , Glucose [Mass/Vol] 205 mg/dL Normal [facility] Comment on above: Result Comment: Calcium Glucose Reference Range is dependent on time and content of last meal. Glucose of more than 200 mg/dL in a nonstressed, ambulatory subject supports the diagnosis of Diabetes Mellitus. Performed By: #### G LULS #### Point of Care testing , Commemt1 Glu2: Cleaned Meter Normal [facility] Comment on above: Result Comment: PERF ORMED BY: [place] [address] PATHOLOGIST CERTIFIED ORTHOTIST PRACTICE MANAGER FREDA ALCAZAR M.D. Performed By: #### G LULS #### Point of Care testing , Glucose [Mass/Vol] 211 mg/dL Normal [facility] Comment on above: Result Comment: Calcium om Glucose Reference Range is dependent on time and content of last meal. Glucose of more than 200 mg/dL in a nonstressed, ambulatory subject supports the diagnosis of Diabetes Mellitus. Performed By: #### G LULS #### Point of Care testing , Commemt1 Glu2: Cleaned Meter Normal [facility] Comment on above: Result Comment: PERF ORMED BY: [place] [id number] PATHOLOGIST CERTIFIED ORTHOTIST PRACTICE MANAGER FREDA ALCAZAR M.D. Performed By: #### G LULS #### Point of Care testing , Glucose [Mass/Vol] 203 mg/dL Normal [facility] Comment on above: Result Comment: Calcium Glucose Reference Range is dependent on time [...] from glycated hemoglobin (Bld) [Mass/Vol] 272 mg/dL [facility] Hemoglobin A1c percentageOrd ered By: Balbina Garzon on 07-20-2023 HbA1c (Bld) [Mass fraction] 11.1 % 4.3-5.6 [facility] Comment on above: Increased risk for d iabetes: 5.7 - 6.4diabetes: >6.4glycemic control for adults with diabetes: <7.0 Lactic Acidon 07-20-2023 Lactate [Moles/Vol] 1.0 mmol/L Normal 0.5-2.2 [facility] Comment on above: Result Comment: PERF ORMED BY: [place] [address] PATHOLOGIST CERTIFIED ORTHOTIST PRACTICE MANAGER FREDA ALCAZAR M.D. Performed By: #### C UBLD, LACTIC #### [facility] [address] [place] [address] Lipid Panelon 07-20-2023 Cholesterol [Mass/Vol] 212 mg/dL High 140-200 [facility] Comment on above: Result Comment: Chol less than 200 mg/dl low risk Chol 201-239 mg/dl borderline risk Chol 240 mg/dl and greater high risk Performed By: #### C UU, ADDONUAPLUS #### [facility] [address] [place] [address] Cholesterol in HDL [Mass/Vol] 45 mg/dL Normal 23-92 [facility] Comment on above: Result Comment: HDL CHOL ATP-III CLASSIFICATION Cardiovascular Risk HDL > or equal to 60 mg/dL LOW HDL < 40 mg/dL HIGH Performed By: #### C UU, ADDONUAPLUS #### [address] Cholesterol.total/Chol esterol in HDL [Mass ratio] 4.7 {ratio} Normal <5.0 [facility] Comment on above: Result Comment: PERF ORMED BY: [place] [address] PATHOLOGIST CERTIFIED ORTHOTIST PRACTICE MANAGER FREDA ALCAZAR M.D. Performed By: #### C CIERRA, ADDONUAPLUS #### [address] LDL Cholesterol,Calculated 140 mg/dL High 0-100 [facility] Comment on above: Result Comment: LDL ATP III CLASSIFICATION LDL less than 100 mg/dL Optimal LDL 100-129 mg/dL Near or above optimal LDL 130-159 mg/dL Borderline high LDL 160-189 mg/dL High LDL greater than 189 mg/dL Very high Performed By: #### C UArya, ADDONUAPLUS #### [address] Triglyceride w/Reflex 134 mg/dL Normal 0-149 [facility] Comment on above: Result Comment: TRIG ATP III CLASSIFICATION TRIG less than 150 mg/dL Normal TRIG 150-199 mg/dL Borderline high TRIG 200-500 mg/dL High TRIG greater than 500 mg/dL Very high Standard traceable to the Center for Disease Conrtrol and Prevention (CDC) test method. Performed By: #### C CIERRA ADDONUAPLUS #### [address] VLDL CHOLESTEROL 26 mg/dL Normal [facility] Comment on above: Performed By: #### C CIERRA ADDONUAPLUS #### [address] Magnesiumon 07-20-2023 Magnesium [Mass/Vol] 1.8 mg/dL Low 1.9-2.7 [facility] Comment on above: Performed By: #### Jacky NORTON ADDONUAPLUS #### [facility] [address] [place] [id number] [facility] Protein [Mass/volume] in Ser um or PlasmaOrdered By: Balbina Garzon on 07-20-2023 Protein [Mass/Vol] 5.7 g/dL 6.4-8.9 [facility] Serum or plasma albumin/glob ulin mass ratioOrdered By: Balbina Garzon on 07-20-2023 Albumin/Globulin [Mass ratio] 1.3 {ratio} [facility] Serum or plasma high density lipoprotein (HDL) cholesterol measurementOrdered By: Balbina Garzon on 07-20-2023 Cholesterol in HDL [Mass/Vol] 45 mg/dL 23-92 [facility] Comment on above: HDL CHOL ATP-III CLA SSIFICATION Cardiovascular RiskHDL > or equal to 60 mg/dL LOWHDL < 40 mg/dL HIGH Serum or plasma total choles terol/high density lipoprotein (HDL) cholesterol mass ratOrdered By: Balbina Garzon on 07-20-2023 Cholesterol.total/Chol esterol in HDL [Mass ratio] 4.7 {ratio} <5.0 [facility] Triglyceride [Mass/volume] i n Serum or PlasmaOrdered By: Balbina Garzon on 07-20-2023 Triglyceride [Mass/Vol] 134 mg/dL 0-149 [facility] Comment on above: TRIG ATP III CLASSIF ICATIONTRIG less than 150 mg/dL NormalTRIG 150-199 mg/dL Borderline highTRIG 200-500 mg/dL High TRIG greater than 500 mg/dL Very highStandard traceable to the Center for Disease Conrtrol and Prevention (CDC) test method. XR humerus RT*on 07-20-2023 XR humerus RT* [facility] [place] [address] [id number] XRay Report Signed Patient: Corona Wharton MR#: [id number] 1 : 1945 Acct:[id number] Age/Sex: 78 / M ADM Date: 07/19/23 Loc: Room: [address] [place] [address] Type: ADM IN Attending Dr: Luigi Napoles [...] John Mckeon M.D.07/20/2023 7:57 PM Dictation Location: [place] [address] Transcribed By: ARCHANA 07/20/231956 Dictated By: John Mckeon DO 07/20/231956 Signed By: 07/20/231956 Normal [facility] Activated partial thrombopla stin time (aPTT) in platelet poor plasma by coagulation aOrdered By: Rubén Cardoso on 07-19-2023 aPTT Coag (PPP) [Time] 32.2 s 25.1-36.5 [facility] Comment on above: A hematocrit value g reater than 55% may lead to inaccurate results in coagulation testing. Patients having hematocrit values >55% require a special collection tube for coagulation studies. Please contact the laboratory at [phone] for redraw instructions. Alanine aminotransferase [En zymatic activity/volume] in Serum or PlasmaOrdered By: Rubén Cardoso on 07-19-2023 ALT [Catalytic activity/Vol] 14 U/L 7-52 [facility] Albumin [Mass/volume] in Ser um or Plasma by Bromocresol green (BCG) dye binding methoOrdered By: Rubén Cardoso on 07-19-2023 Albumin BCG dye [Mass/Vol] 3.8 g/dL 3.5-5.7 [facility] Alkaline phosphatase [Enzyma tic activity/volume] in Serum or PlasmaOrdered By: Rubén Cardoso on 07-19-2023 ALP [Catalytic activity/Vol] 86 U/L 34-104 [facility] Anisocytosis LM Ql (Bld)Orde red By: Rubén Cardoso on 07-19-2023 Anisocytosis Ql (Bld) Slight [facility] Aspartate aminotransferase [ Enzymatic activity/volume] in Serum or PlasmaOrdered By: Rubén Cardoso on 07-19-2023 AST [Catalytic activity/Vol] 23 U/L 13-39 [facility] Automated erythrocytes count in urine sediment (number/area)Ordered By: Rubén Cardoso on 07-19-2023 RBC Auto (Urine sed) [#/Area] 3-4 [HPF] 0-4 [facility] Automated leukocytes count i n urine sediment (number/area)Ordered By: Rubén Cardoso on 07-19-2023 WBC Auto (Urine sed) [#/Area] 5-9 [HPF] 0-4 [facility] B-Type Natriuretic Peptideon 07-19-2023 Natriuretic peptide B (Bld) [Mass/Vol] 299.0 pg/mL High 5-100 [facility] Comment on above: Result Comment: PERF ORMED BY: [place] [address] PATHOLOGIST CERTIFIED ORTHOTIST PRACTICE MANAGER FREDA ALCAZAR M.D. Performed By: #### C CIERRA, SHANICEPLUS #### [address] Bacterial blood cultureOrder ed By: Rubén Cardoso on 07-19-2023 Bacteria identified Cx Nom (Bld) NO GROWTH 5 DAYS [facility] Bacteria identified Cx Nom (Bld) NO GROWTH 5 DAYS [facility] Basophils Auto (Bld) [#/Vol] Ordered By: Rubén Cardoso on 07-19-2023 Basophils (Bld) [#/Vol] 0.0 10*3/uL 0.0-0.2 [facility] Basophils/100 WBC Auto (Bld) Ordered By: Ruébn Cardoso on 07-19-2023 Basophils/100 WBC (Bld) 0.3 % . [facility] Bilirubin Test strip Ql (U)O rdered By: Rubén Cardoso on 07-19-2023 Bilirubin Ql (U) Negative Negative [facility] Bilirubin.total [Mass/volume ] in Serum or PlasmaOrdered By: Rubén Cardoso on 07-19-2023 Bilirubin [Mass/Vol] 0.5 mg/dL 0.3-1.0 [facility] COVID CepheidOrdered By: Patricia Cardoso on 07-19-2023 SARS-CoV-2 (COVID-19) Ab IA Ql Negative Negative [facility] Comment on above: This is a duplicate Cepheid Xpert Xpress CoV-2/Flu/RSV Plus RNA by RT-PCR result to be used for statistical tracking purpose only. SARS-CoV-2 (COVID-19) RNA CAROLINE+probe Ql (Unsp spec) [facility] COVID-19 / Flu A/B / RSV PCR [...] or Cepheid Disclaimer revoked sooner. PERFORMED BY: [address] [id number] PATHOLOGIST CERTIFIED ORTHOTIST PRACTICE MANAGER FREDA ALCAZAR M.D. Normal [facility] Comment on above: Performed By: #### G LULS #### Point of Care testing , CT head/brain wo conon 07-18 CT head/brain wo con [facility] Main [place] [address] [place] [id number] Scan Report Signed Patient: Corona Wharton MR#: [id number] 1 : 1945 Acct:[id number] Age/Sex: 78 / M ADM Date: 07/19/23 Loc: ER Room: Type: [facility] ER Attending Dr: Copies to: Rubén Cardoso [...] David Zeng M.D.07/19/2023 5:42 PM Dictation Location: [place] [address] Transcribed By: ARCHANA 07/19/23 174 Dictated By: David Zeng II, MD 07/19/23 1738 Signed By: 07/19/23 174 Normal [facility] Calcium [Mass/volume] in Ser um or PlasmaOrdered By: Rubén Cardoso on 07-19-2023 Calcium [Mass/Vol] 8.9 mg/dL 8.6-10.3 [facility] Carbon dioxide, total [Moles /volume] in Serum or PlasmaOrdered By: Rubén Cardoso on 07-19-2023 CO2 [Moles/Vol] 28.1 mmol/L 21.0-31.0 [facility] Cepheid COVID PCR Negativeon 07-19-2023 SARS-CoV-2 (COVID-19) RNA CAROLINE+probe Ql (Unsp spec) Negative Normal Negative [facility] Comment on above: Result Comment: This is a duplicate CepReferMeid Xpert Xpress CoV-2/Flu/RSV Plus RNA by RT-PCR result to be used for statistical tracking purpose only. PERFORMED BY: [facility] [address] [place] [address] PATHOLOGIST CERTIFIED ORTHOTIST PRACTICE MANAGER FREDA ALCAZAR M.D. Performed By: #### G LULS #### Point of Care testing , Chloride [Moles/volume] in S reika or PlasmaOrdered By: Rubén Cardoso on 07-19-2023 Chloride [Moles/Vol] 102 mmol/L 98-107 [facility] Color Auto (U)Ordered By: Nitin Cardoso on 07-19-2023 Color (U) Yellow Yellow [facility] Comprehensive Metabolic Pane jeanna 07-19-2023 Albumin [Mass/Vol] 3.8 g/dL Normal 3.5-5.7 [facility] Comment on above: Performed By: #### C UU, ADDONUAPLUS #### [facility] [address] Albumin/Globulin [Mass ratio] 1.3 {ratio} Normal [facility] Comment on above: Performed By: #### C UU, ADDONUAPLUS #### [facility] [address] ALP [Catalytic activity/Vol] 86 U/L Normal 34-104 [facility] Comment on above: Performed By: #### C UU, ADDONUAPLUS #### [facility] [address] ALT [Catalytic activity/Vol] 14 U/L Normal 7-52 [facility] Comment on above: Performed By: #### C UU, ADDONUAPLUS #### [address] Anion gap [Moles/Vol] Not performed Normal 6.0-15.0 [facility] Comment on above: Performed By: #### C UU, ADDONUAPLUS #### [place] [address] [place] Aspartate Amino Transferase Normal 13-39 [facility] Comment on above: Result Comment: Spec imen hemolyzed, redraw requested Performed By: #### C UU, ADDONUAPLUS #### [place] [address] [place] Bilirubin [Mass/Vol] 0.5 mg/dL Normal 0.3-1.0 [facility] Comment on above: Performed By: #### C UU, ADDONUAPLUS #### [facility] [address] [place] [address] [place] Calcium [Mass/Vol] 8.9 mg/dL Normal 8.6-10.3 [facility] Comment on above: Performed By: #### C UU, ADDONUAPLUS #### [facility] [address] [place] [address] [place] Chloride [Moles/Vol] 102 mmol/L Normal 98-107 [facility] Comment on above: Performed By: #### C UU, ADDONUAPLUS #### [address] CO2 [Moles/Vol] 28.1 mmol/L Normal 21.0-31.0 [facility] Comment on above: Performed By: #### C UU, ADDONUAPLUS #### [address] Creatinine [Mass/Vol] 1.23 mg/dL Normal 0.70-1.30 [facility] Comment on above: Performed By: #### C UU, ADDONUAPLUS #### [address] Creatinine Clr Calc Pharmacy 76.94 Normal [facility] Comment on above: Performed By: #### C UU, ADDONUAPLUS #### [address] GFR/1.73 sq M.predicted MDRD (S/P/Bld) [Vol rate/Area] mL/min/{1.73_m2} Normal [facility] Comment on above: Performed By: #### C UU, ADDONUAPLUS #### [address] Globulin (S) [Mass/Vol] 3.0 g/dL Normal [facility] Comment on above: Performed By: #### C UU, ADDONUAPLUS #### [address] Glucose [Mass/Vol] 216 mg/dL High 70-100 [facility] Comment on above: Result Comment: Calcium Glucose Reference Range is dependent on time and content of last meal. Glucose of more than 200 mg/dL in a nonstressed, ambulatory subject supports the diagnosis of Diabetes Mellitus. ADA recommended reference range Performed By: #### C UU, ADDONUAPLUS #### [address] Potassium Normal 3.5-5.1 [facility] Comment on above: Result Comment: Spec imen hemolyzed, redraw requested Performed By: #### C UU, ADDONUAPLUS #### [address] Protein [Mass/Vol] 6.8 g/dL Normal 6.4-8.9 [facility] Comment on above: Performed By: #### C UU, ADDONUAPLUS #### [place] [address] [place] Sodium [Moles/Vol] 136 mmol/L Normal 136-145 [facility] Comment on above: Performed By: #### C UU, ADDONUAPLUS #### [address] Urea nitrogen [Mass/Vol] 17 mg/dL Normal 7-25 [facility] Comment on above: Performed By: #### C UU, ADDONUAPLUS #### [place] [address] [place] Creatine Kinaseon 07-19-2023 CK [Catalytic activity/Vol] 132 U/L Normal 30-223 [facility] Comment on above: Performed By: #### C UU, ADDONUAPLUS #### [place] [address] [place] Creatine kinase [Enzymatic a ctivity/volume] in Serum or PlasmaOrdered By: Rubén Cardoso on 07-19-2023 CK [Catalytic activity/Vol] 132 U/L 30-223 [facility] Creatinine [Mass/volume] in Serum or PlasmaOrdered By: Rubén Cardoso on 07-19-2023 Creatinine [Mass/Vol] 1.23 mg/dL 0.70-1.30 [facility] Dipstick and Microscopicon 0 07-19-2023 Appearance (U) Clear Normal Clear [facility] Comment on above: Order Comment: Name Collection Type:: Clean-Voided Midstream Performed By: #### C UU, ADDONUAPLUS #### [place] [address] [place] Bacteria,Urine None Seen Normal None Seen [facility] Comment on above: Order Comment: Name Collection Type:: Clean-Voided Midstream Performed By: #### C UU, ADDONUAPLUS #### [address] Bilirubin,Urine Negative Normal Negative [facility] Comment on above: Order Comment: Name Collection Type:: Clean-Voided Midstream Performed By: #### C UU, ADDONUAPLUS #### [address] Color (U) Yellow Normal Yellow [facility] Comment on above: Order Comment: Name Collection Type:: Clean-Voided Midstream Performed By: #### C UU, ADDONUAPLUS #### [address] Glucose Ql (U) 500 mg/dL High Normal [facility] Comment on above: Order Comment: Name Collection Type:: Clean-Voided Midstream Performed By: #### C UU, ADDONUAPLUS #### [address] Hyaline Casts,Urine None Seen Normal 0-8 [facility] Comment on above: Order Comment: Name Collection Type:: Clean-Voided Midstream Result Comment: PERF ORMED BY: [place] [address] PATHOLOGIST CERTIFIED ORTHOTIST PRACTICE MANAGER FREDA ALCAZAR M.D. Performed By: #### C UU, ADDONUAPLUS #### [address] Ketones Ql (U) Negative Normal Negative [facility] Comment on above: Order Comment: Name Collection Type:: Clean-Voided Midstream Performed By: #### C UU, ADDONUAPLUS #### [address] Leukocyte esterase Test strip Ql (U) 2+ High Negative [facility] Comment on above: Order Comment: Name Collection Type:: Clean-Voided Midstream Performed By: #### C UU, ADDONUAPLUS #### [address] Nitrite,Urine Negative Normal Negative [facility] Comment on above: Order Comment: Name Collection Type:: Clean-Voided Midstream Performed By: #### C UU, ADDONUAPLUS #### [address] Occult Blood,Urine Negative Normal Negative [facility] Comment on above: Order Comment: Name Collection Type:: Clean-Voided Midstream Result Comment: PERF ORMED BY: [place] [address] PATHOLOGIST CERTIFIED ORTHOTIST PRACTICE MANAGER FREDA ALCAZAR M.D. Performed By: #### C UU, ADDONUAPLUS #### [address] pH (U) 6.5 [pH] Normal 5.0-9.0 [facility] Comment on above: Order Comment: Name Collection Type:: Clean-Voided Midstream Performed By: #### C UU, ADDONUAPLUS #### [address] Protein (U) [Mass/Vol] 300 mg/dL High Negative [facility] Comment on above: Order Comment: Name Collection Type:: Clean-Voided Midstream Performed By: #### C UU, ADDONUAPLUS #### [address] RBC,Urine 3-4 Normal 0-4 [facility] Comment on above: Order Comment: Name Collection Type:: Clean-Voided Midstream Performed By: #### C UU, ADDONUAPLUS #### [address] Specificy [place],Urine 1.015 Normal 1.001-1.03 0 [facility] Comment on above: Order Comment: Name Collection Type:: Clean-Voided Midstream Performed By: #### C UU, ADDONUAPLUS #### [address] Squamous Epithelial Cell,Urine 0-1 Normal 0-2 [facility] Comment on above: Order Comment: Name Collection Type:: Clean-Voided Midstream Performed By: #### C UU, ADDONUAPLUS #### [facility] [address] [place] [address] Urobilinogen,Urine Normal Normal Normal [facility] Comment on above: Order Comment: Name Collection Type:: Clean-Voided Midstream Performed By: #### C UU, ADDONUAPLUS #### [facility] [address] [place] [address] WBC,Urine 5-9 High 0-4 [facility] Comment on above: Order Comment: Name Collection Type:: Clean-Voided Midstream Performed By: #### C UU, ADDONUAPLUS #### [address] ECG 12 lead ECGon 07-19-2023 ECG 12 lead ECG [facility] [place] [address] [place] [address] Electrocardiograph Report Signed Patient: Corona Wharton MR#: [id number] 1 : 1945 Acct:[id number] Age/Sex: 78 / M ADM Date: 07/19/23 Loc: Room: [address] [place] [address] Type: ADM IN Attending Dr: Balbina Garzon [...] Bifascicular block Confirmed by Rubén CARDOSO DO ([id number]) on 07/19/2023 10:26:57 PM Referred By: Electronically Signed By:Rubén CARDOSO DO Transcribed By: MUS Signed By Rubén Cardoso DO 0 07/19/232226 Normal [facility] Eosinophils Auto (Bld) [#/Vo l]Ordered By: Rubén Cardoso on 07-19-2023 Eosinophils (Bld) [#/Vol] 0.3 10*3/uL 0.0-0.45 [facility] Eosinophils/100 WBC Auto (Bl d)Ordered By: Rubén Cardoso on 07-19-2023 Eosinophils/100 WBC (Bld) 2.5 % . [facility] Erythrocyte distribution wid th Auto (RBC) [Ratio]Ordered By: Rubén Cardoso on 07-19-2023 Erythrocyte distribution width (RBC) [Ratio] 15.0 % 12.0-14.8 [facility] Globulin Calc (S) [Mass/Vol] Ordered By: Rubén Cardoso on 07-19-2023 Globulin (S) [Mass/Vol] 3.0 g/dL [facility] Glucose [Mass/volume] in Ser um or PlasmaOrdered By: Rubén Cardoso on 07-19-2023 Glucose [Mass/Vol] 216 mg/dL 70-100 [facility] Comment on above: ADA recommended refe rence rangeRandom Glucose Reference Range is dependent on time and content of last meal. Glucose of more than 200 mg/dL in a nonstressed, ambulatory subject supports the diagnosis of Diabetes Mellitus. Hematocrit Auto (Bld) [Volum e fraction]Ordered By: Rubén Cardoso on 07-19-2023 Hematocrit (Bld) [Volume fraction] 44.5 % 38.8-50.0 [facility] Hemoglobin [Mass/volume] in BloodOrdered By: Rubén Cardoso on 07-19-2023 Hemoglobin (Bld) [Mass/Vol] 13.6 g/dL 13.0-17.0 [facility] INR in Platelet poor plasma by Coagulation assayOrdered By: Rubén Cardoso on 07-19-2023 INR Coag (PPP) [Relative time] 1.0 {INR} [facility] Comment on above: INR Therapeutic Rang e [...] 07-19-2023 Ketones (U) [Mass/Vol] Negative Negative [facility] - Chemistry and C hemistry - challengeOrdered By: Rubén Cardoso on 07-19-2023 CO2 [Moles/Vol] 27.2 mmol/L 24.0-29.0 [facility] HCO3 (Bld) [Moles/Vol] 26.0 mmol/L 23.0-29.0 [facility] - UrinalysisOrder ed By: Rubén Cardoso on 07-19-2023 Hyaline casts LM Ql (Urine sed) None seen [LPF] 0-8 [facility] Lactate [Moles/volume] in Se rum or PlasmaOrdered By: Rubén Cardoso on 07-19-2023 Lactate [Moles/Vol] 1.0 mmol/L 0.5-2.2 [facility] Leukocytes [#/volume] correc marina for nucleated erythrocytes in Blood by Automated counOrdered By: Rubén Cardoso on 07-19-2023 WBC corrected for nucl RBC Auto (Bld) [#/Vol] 13.4 10*3/uL 4.1-10.5 [facility] Lymphocytes Auto (Bld) [#/Vo l]Ordered By: Rubén Cardoso on 07-19-2023 Lymphocytes (Bld) [#/Vol] 1.9 10*3/uL 1.00-4.8 [facility] Lymphocytes/100 WBC Auto (Bl d)Ordered By: Rubén Cardoso on 07-19-2023 Lymphocytes/100 WBC (Bld) 14.4 % . [facility] MCH Auto (RBC) [Entitic mass ]Ordered By: Rubén Cardoso on 07-19-2023 MCH (RBC) [Entitic mass] 26.0 pg 27.5-35.2 [facility] MCHC Auto (RBC) [Mass/Vol]Or dered By: Rubén Cardoso on 07-19-2023 MCHC (RBC) [Mass/Vol] 30.5 g/dL 32.5-35.6 [facility] MCV Auto (RBC) [Entitic vol] Ordered By: Rubén Cardoso on 04-04-2024 MCV (RBC) [Entitic vol] 85.3 fL 83.5-101 [facility] Magnesiumon 07-19-2023 Magnesium [Mass/Vol] 1.8 mg/dL Low 1.9-2.7 [facility] Comment on above: Result Comment: PERF ORMED BY: [facility] [address] [place] [address] PATHOLOGIST CERTIFIED ORTHOTIST PRACTICE MANAGER FREDA ALCAZAR M.D. Performed By: #### C UU, ADDONUAERIN #### [address] Magnesium [Mass/volume] in S erika or PlasmaOrdered By: Rubén Cardoso on 07-19-2023 Magnesium [Mass/Vol] 1.8 mg/dL 1.9-2.7 [facility] Microcytes LM Ql (Bld)Ordere d By: Rubén Cardoso on 07-19-2023 Microcytes Ql (Bld) Slight [facility] Monocyte distribution width [Entitic volume] in Blood by AutomatedOrdered By: Rubén Cardoso on 07-19-2023 Monocyte distribution width Auto (Bld) [Entitic vol] 22.44 % 0.00-20.00 [facility] Comment on above: For adults in ED, MD W > 20.0 may be associated with a higher risk of sepsis during the first 12 hrs of hospital admission Monocytes Auto (Bld) [#/Vol] Ordered By: Rubén Cardoso on 07-19-2023 Monocytes (Bld) [#/Vol] 0.8 10*3/uL 0.0-0.8 [facility] Monocytes/100 WBC Auto (Bld) Ordered By: Rubén Cardoso on 07-19-2023 Monocytes/100 WBC (Bld) 6.0 % . [facility] Natriuretic peptide B [Mass/ Vol]Ordered By: Rubén Cardoso on 07-19-2023 Natriuretic peptide B (Bld) [Mass/Vol] 299.0 pg/mL 5-100 [facility] Neutrophils Auto (Bld) [#/Vo l]Ordered By: Rubén Cardoso on 07-19-2023 Neutrophils (Bld) [#/Vol] 10.3 10*3/uL 1.8-7.7 [facility] Neutrophils/100 WBC Auto (Bl d)Ordered By: Rubén Cardoso on 07-19-2023 Neutrophils/100 WBC (Bld) 76.8 % . [facility] Nitrite Test strip Ql (U)Ord ered By: Rubén Cardoso on 07-19-2023 Nitrite Ql (U) Negative Negative [facility] No Panel InformationOrdered By: Rubén Cardoso on 07-19-2023 Blood Gas Critical Value See comment [facility] Comment on above: Critical Value negro d on: 07/19/2023 at 16:54 Blood Gas Sample Site Venous [place] [facility] FiO2 28 % [facility] Oxygen Delivery Device Nasal cannula [facility] Venous Blood Base Excess 1.9 mmol/L -3.0-3.0 [facility] Venous Blood Oxygen Content 8.5 mmol/L 6.6-9.7 [facility] Venous Blood Oxygen Saturation 95.8 % 73.0-76.0 [facility] Venous Blood Partial Pressure CO2 39.4 mm[Hg] 38.0-50.0 [facility] Venous Blood Partial Pressure O2 77.5 mm[Hg] 35.0-45.0 [facility] Venous Blood pH 7.44 7.32-7.43 [facility] Estimated GFR (CKD-EPI) > 60.0 mL/Min [facility] Creatinine Clearance (Chem 76.94 [facility] Nucleated erythrocytes [Pres ence] in Blood by Automated countOrdered By: Rubén Cardoso on 07-19-2023 Nucleated RBC Auto Ql (Bld) 0.2 /100{WBC} 0-0.5 [facility] Partial Thromboplastin Timeo n 07-19-2023 aPTT Coag (Bld) [Time] 32.2 s Normal 25.1-36.5 [facility] Comment on above: Result Comment: A he matocrit value greater than 55% may lead to inaccurate results in coagulation testing. Patients having hematocrit values >55% require a special collection tube for coagulation studies. Please contact the laboratory at [phone] for redraw instructions. PERFORMED BY: [facility] [place] [address] PATHOLOGIST CERTIFIED ORTHOTIST PRACTICE MANAGER FREDA ALCAAZR M.D. Performed By: #### C UU, ADDLORIUAPLUS #### [address] Platelet adequacy [Presence] in Blood by Light microscopyOrdered By: Rubén Cardoso on 07-19-2023 Platelets LM Ql (Bld) Normal Normal [facility] Platelet mean volume Auto (B ld) [Entitic vol]Ordered By: Rubén Cardoso on 07-19-2023 Platelet mean volume (Bld) [Entitic vol] 8.1 fL 6.6-10.1 [facility] Platelet morphology finding [Identifier] in BloodOrdered By: Rubén Cardoso on 07-19-2023 Platelet morphology finding Nom (Bld) Normal Normal [facility] Platelets Auto (Bld) [#/Vol] Ordered By: Rubén Cardoso on 07-19-2023 Platelets (Bld) [#/Vol] 297 10*3/uL 150-450 [facility] Polychromasia [Presence] in Blood by Light microscopyOrdered By: Rubén Cardoso on 07-19-2023 Polychromasia LM Ql (Bld) Slight [facility] Potassium [Moles/volume] in Serum or PlasmaOrdered By: Rubén Cardoso on 07-19-2023 Potassium [Moles/Vol] 4.1 mmol/L 3.5-5.1 [facility] Protein Auto test strip (U) [Mass/Vol]Ordered By: Ruébn Cardoso on 07-19-2023 Protein (U) [Mass/Vol] 300 mg/dL Negative [facility] Protein [Mass/volume] in Ser um or PlasmaOrdered By: Rubén Cardoso on 07-19-2023 Protein [Mass/Vol] 6.8 g/dL 6.4-8.9 [facility] Prothrombin Time INRon 07-18 INR Coag (PPP) [Relative time] 1.0 {INR} Normal [facility] Comment on above: Result Comment: [...] Performed By: #### C UU, ADDONUAPLUS #### [address] PT Coag (PPP) [Time] 11.9 s Normal 9.0-12.9 [facility] Comment on above: Result Comment: A he matocrit value greater than 55% may lead to inaccurate results in coagulation testing. Patients having hematocrit values >55% require a special collection tube for coagulation studies. Please contact the laboratory at [phone] for redraw instructions. Performed By: #### C UU, ADDONUAPLUS #### [place] [id number] [facility] Prothrombin time (PT)Ordered By: Rubén Cardoso on 07-19-2023 PT Coag (PPP) [Time] 11.9 s 9.0-12.9 [facility] Comment on above: A hematocrit value g reater than 55% may lead to inaccurate results in coagulation testing. Patients having hematocrit values >55% require a special collection tube for coagulation studies. Please contact the laboratory at [phone] for redraw instructions. RBC Auto (Bld) [#/Vol]Ordere d By: Rubén Cardoso on 07-19-2023 RBC (Bld) [#/Vol] 5.21 10*6/uL 3.90-5.60 [facility] RBC morphologyOrdered By: Nitin Cardoso on 07-19-2023 RBC morphology finding Nom (Bld) N/A [facility] Redraw Camron 07-19-2023 AST [Catalytic activity/Vol] 23 U/L Normal 13-39 [facility] Comment on above: Result Comment: PERF ORMED BY: [place] [address] PATHOLOGIST CERTIFIED ORTHOTIST PRACTICE MANAGER FREDA ALCAZAR M.D. Performed By: #### C UBLD, LACTIC #### [address] Redraw Potassiumon Potassium [Moles/Vol] 4.1 mmol/L Normal 3.5-5.1 [facility] Comment on above: Performed By: #### C UBLD, LACTIC #### [address] Scan and CBCon 07-19-2023 Anisocytosis Ql (Bld) Slight Normal [facility] Comment on above: Performed By: #### S CAN CBC #### [address] Basophils (Bld) [#/Vol] 0.0 10*3/uL Normal 0.0-0.2 [facility] Comment on above: Performed By: #### S CAN CBC #### [address] Basophils/100 WBC (Bld) 0.3 % Normal . [facility] Comment on above: Performed By: #### S CAN CBC #### [address] Eosinophils (Bld) [#/Vol] 0.3 10*3/uL Normal 0.0-0.45 [facility] Comment on above: Performed By: #### S CAN CBC #### [address] Eosinophils/100 WBC (Bld) 2.5 % Normal . [facility] Comment on above: Performed By: #### S CAN CBC #### [address] Erythrocyte distribution width (RBC) [Ratio] 15.0 % High 12.0-14.8 [facility] Comment on above: Performed By: #### S CAN CBC #### [address] Hematocrit (Bld) [Volume fraction] 44.5 % Normal 38.8-50.0 [facility] Comment on above: Performed By: #### S CAN CBC #### [address] Hemoglobin (Bld) [Mass/Vol] 13.6 g/dL Normal 13.0-17.0 [facility] Comment on above: Performed By: #### S CAN CBC #### [address] Lymphocytes (Bld) [#/Vol] 1.9 10*3/uL Normal 1.00-4.8 [facility] Comment on above: Performed By: #### S CAN CBC #### [address] Lymphocytes/100 WBC (Bld) 14.4 % Normal . [facility] Comment on above: Performed By: #### S CAN CBC #### [address] MCH (RBC) [Entitic mass] 26.0 pg Low 27.5-35.2 [facility] Comment on above: Performed By: #### S CAN CBC #### [address] MCV (RBC) [Entitic vol] 85.3 fL Normal 83.5-101 [facility] Comment on above: Performed By: #### S CAN CBC #### [address] Mean Corpuscular HGB Conc 30.5 g/dL Low 32.5-35.6 [facility] Comment on above: Performed By: #### S CAN CBC #### [address] Microcytosis Slight Normal [facility] Comment on above: Performed By: #### S CAN CBC #### [address] Monocytes (Bld) [#/Vol] 0.8 10*3/uL Normal 0.0-0.8 [facility] Comment on above: Performed By: #### S CAN CBC #### [address] Monocytes/100 WBC (Bld) 22.44 % High 0.00-20.00 [facility] Comment on above: Result Comment: For adults in ED, MDW > 20.0 may be associated with a higher risk of sepsis during the first 12 hrs of hospital admission Performed By: #### S CAN CBC #### [address] Monocytes/100 WBC (Bld) 6.0 % Normal . [facility] Comment on above: Performed By: #### S CAN CBC #### [address] Neutrophils (Bld) [#/Vol] 10.3 10*3/uL High 1.8-7.7 [facility] Comment on above: Performed By: #### S CAN CBC #### [address] Neutrophils/100 WBC (Bld) 76.8 % Normal . [facility] Comment on above: Performed By: #### S CAN CBC #### [address] NRBC% 0.2 /100{WBC} Normal 0-0.5 [facility] Comment on above: Performed By: #### S CAN CBC #### [address] Platelet Estimate Normal Normal Normal [facility] Comment on above: Performed By: #### S CAN CBC #### [address] Platelet mean volume (Bld) [Entitic vol] 8.1 fL Normal 6.6-10.1 [facility] Comment on above: Performed By: #### S CAN CBC #### [address] Platelet Morphology Normal Normal Normal [facility] Comment on above: Result Comment: PERF ORMED BY: [place] [address] PATHOLOGIST CERTIFIED ORTHOTIST PRACTICE MANAGER FREDA ALCAZAR M.D. Performed By: #### S CAN CBC #### [place] [address] [place] Platelets (Bld) [#/Vol] 297 10*3/uL Normal 150-450 [facility] Comment on above: Performed By: #### S CAN CBC #### [facility] [address] Polychromasia Slight Normal [facility] Comment on above: Performed By: #### S CAN CBC #### [facility] [address] RBC (Bld) [#/Vol] 5.21 10*6/uL Normal 3.90-5.60 [facility] Comment on above: Performed By: #### S CAN CBC #### [facility] [address] WBC (Bld) [#/Vol] 13.4 10*3/uL High 4.1-10.5 [facility] Comment on above: Performed By: #### S CAN CBC #### [address] Serum or plasma albumin/glob ulin mass ratioOrdered By: Rubén Cardoso on 07-19-2023 Albumin/Globulin [Mass ratio] 1.3 {ratio} [facility] Serum or plasma anion gap de terminationOrdered By: Rubén Cardoso on 07-19-2023 Anion gap [Moles/Vol] TNP [facility] Comment on above: Test not performed Sodium [Moles/volume] in Ser um or PlasmaOrdered By: Rubén Cardoso on 07-19-2023 Sodium [Moles/Vol] 136 mmol/L 136-145 [facility] Specific gravity Auto test s trip (U) [Rel density]Ordered By: Rubén Cardoso on 07-19-2023 Specific gravity (U) [Rel density] 1.015 1.001-1.03 0 [facility] Squamous epithelial cells de tection in urine sediment by light microscopyOrdered By: Rubén Cardoso on 07-19-2023 Epithelial cells.squamous LM Ql (Urine sed) 0-1 [HPF] 0-2 [facility] Troponin I High Sensitivityo n 07-19-2023 Troponin I High Sensitivity 26.2 pg/mL High 0.0-20.0 [facility] Comment on above: Result Comment: PERF ORMED BY: [place] [address] PATHOLOGIST CERTIFIED ORTHOTIST PRACTICE MANAGER FREDA ALCAZAR M.D. Performed By: #### C UU, ADDONUAPLUS #### [facility] [address] [place] [address] Troponin I High Sensitivity 25.9 pg/mL High 0.0-20.0 [facility] Comment on above: Result Comment: PERF ORMED BY: [place] [address] PATHOLOGIST CERTIFIED ORTHOTIST PRACTICE MANAGER FREDA ALCAZAR M.D. Performed By: #### C UU, ADDONUAPLUS #### [facility] [address] [place] [address] Troponin I.cardiac [Mass/vol ume] in Serum or Plasma by Detection limit <= 0.01 ng/Ordered By: Rubén Cardoso on 07-19-2023 Troponin I.cardiac DL <= 0.01 ng/mL [Mass/Vol] 26.2 pg/mL 0.0-20.0 [facility] Urea nitrogen [Mass/volume] in Serum or PlasmaOrdered By: Rubén Cardoso on 07-19-2023 Urea nitrogen [Mass/Vol] 17 mg/dL 7-25 [facility] Urine Cultureon 07-19-2023 Bacteria identified Cx Nom (U) 25,000 colonies/ml mixed bacterial skin contaminants 2 Days PERFORMED BY: [place] [address] PATHOLOGIST CERTIFIED ORTHOTIST PRACTICE MANAGER FREDA ALCAZAR M.D. Normal [facility] Comment on above: Performed By: #### C UU, ADDONUAPLUS #### [facility] [address] [place] [address] Urine bacteria detection by automated methodOrdered By: Rubén Cardoso on 07-19-2023 Bacteria Auto Ql (U) None seen None Seen [facility] Urine clarity by refractomet ry automatedOrdered By: Rubén Cardoso on 07-19-2023 Clarity Refractometry automated (U) Clear Clear [facility] Urine culture routineOrdered By: Rubén Cardoso on 07-19-2023 Bacteria identified Cx Nom (U) 2 Days [facility] Urine glucose measurement by automated test strip (mass/volume)Ordered By: Rubén Walker on 07-19-2023 Glucose Auto test strip (U) [Mass/Vol] 500 mg/dL Normal [facility] Urine hemoglobin detection b y automated test stripOrdered By: Rubén Cardoso on 07-19-2023 Hemoglobin Auto test strip Ql (U) Negative Negative [facility] Urine leukocyte esterase det ection by automated test stripOrdered By: Rubén Cardoso on 07-19-2023 Leukocyte esterase Auto test strip Ql (U) 2+ Negative [facility] Urobilinogen Auto test strip (U) [Mass/Vol]Ordered By: Rubén Cardoso on 07-19-2023 Urobilinogen (U) [Mass/Vol] Normal mg/dL Normal [facility] Venous Blood Gason CO2 [Moles/Vol] 27.2 mmol/L Normal 24.0-29.0 [facility] Comment on above: Performed By: #### C UU, ADDONUAPLUS #### [address] HCO3 (Bld) [Moles/Vol] 26.0 mmol/L Normal 23.0-29.0 T [facility] Comment on above: Performed By: #### C UU, ADDONUAPLUS #### [address] Oxygen Device Nasal Cannula Normal [facility] Comment on above: Performed By: #### C UU, ADDONUAPLUS #### [address] Respiratory Critical Normal [facility] Comment on above: Result Comment: Crit ical Value called on: 07/19/2023 at 16:54 PERFORMED BY: [place] [address] PATHOLOGIST CERTIFIED ORTHOTIST PRACTICE MANAGER FREDA ALCAZAR M.D. Performed By: #### C UU, ADDONUAPLUS #### [address] VBG Base Excess 1.9 mmol/L Normal -3.0-3.0 [facility] Comment on above: Performed By: #### C UU, ADDONUAPLUS #### [address] VBG Draw Site Venous Normal [facility] Comment on above: Performed By: #### C UU, ADDONUAPLUS #### [address] VBG Frac Inspired O2 28 % Normal [facility] Comment on above: Performed By: #### C UU, ADDONUAPLUS #### [address] VBG O2 Content 8.5 mmol/L Normal 6.6-9.7 [facility] Comment on above: Performed By: #### C UU, ADDONUAPLUS #### [address] VBG Oxygen Saturation 95.8 % Off scale high 73.0-76.0 [facility] Comment on above: Performed By: #### C UU, ADDONUAPLUS #### [address] VBG PCO2 39.4 mm[Hg] Normal 38.0-50.0 [facility] Comment on above: Performed By: #### C UU, ADDONUAPLUS #### [address] VBG PH Venous PH 7.44 High 7.32-7.43 [facility] Comment on above: Performed By: #### C UU, ADDONUAPLUS #### [address] VBG PO2 77.5 mm[Hg] High 35.0-45.0 [facility] Comment on above: Performed By: #### C UU, ADDONUAPLUS #### [address] WBC Auto (Bld) [#/Vol]Ordere d By: Rubén Cardoso on 07-19-2023 WBC (Bld) [#/Vol] 13.4 10*3/uL 4.1-10.5 [facility] XR chest 2V*on 07-19-2023 XR chest 2V* [facility] [place] [address] [place] [id number] XRay Report Signed Patient: Corona Wharton MR#: [id number] 1 : 1945 Acct:[id number] Age/Sex: 78 / M ADM Date: 07/19/23 Loc: ER Room: Type: [facility] ER Attending Dr: Copies to: Rubén Cardoso [...] David Zeng M.D.07/19/2023 5:37 PM Dictation Location: [place] [address] Transcribed By: [facility] 07/19/231736 Dictated By: David Zeng II, MD 07/19/231735 Signed By: 07/19/231736 Normal [facility] pH Auto test strip (U)Ordere d By: Rubén Cardoso on 07-19-2023 pH (U) 6.5 [pH] 5.0-9.0 [facility] EMS Documentationon 08-09-19 EMS Documentation Please click on link to see report [id number] udHNbMTMxMCAwIFIgMTIyMCAwI FIgMiAw IFIgMTIyMSAwIFIgMTMxMSAwIF ZxG8Nzt5OCe0kfXE2kKBVhLLQ7 UVFdPCC2EMQcSE1cZ7LcgAUi KLB2DbGdZVWnCJCbBCG8ABDlAG IsCTVnyDTOg0uqUO9nONPiKSG2 AXWlLCU1LTYpNT1fYVniOY1t F1CtxvDuoDXwUTMkYHSlRw0EDO OsdTNmFNE5MB1Nx2nmixSeFUGe CKmkS3RkTIZkVYobFTOGAz6c Et2maZy6S1HPITQsVGJ6XUInIk 5PWTQpUYZ0ErEaBIXhCIQlDXOb RDWvEq4WHLYqCFSdIEJKGp2p DKHkN0QpaFtzWDHXJ2FbyQErL7 L9tFuDmMU1XFEpHjA1LLIaYo4L Z1NtFDA8OQIoEOxoWOOPWw3l Ha67SZLlRTVeV3RnuNC9NWVqXS 10foZ0W9D7qZZrHXUaDG0NPXRh L1M+XzvyzhRuMukLSfBoXZ6l xgd8IJ0NDC1ejWtxXcL7FCD+Pn T5oeOmkCrvZ7TvYGWtNVEnSBXk wefzODC3HKWiGOgmRlg3VA08 FHWmbpYJJjhdQYHfD36PCWQeMd OeVzv5ECR9JwLsMI83TDYxVEjj CyElCZ3dYZL3MJBsFzOhQBrk Avy6QX4xRbd1QKCnMhYRGkmfTi U7NYsjPl64OLOdFBTrCxAsSZXz SgMckgZFShf8CNAiExKjZqXs YDKcVtXqJYEtxmFFAhwaEHE2KJ MqIW16LQN4SJAkXJukKkSpTL9g EWQ6CVWwWE60APV6SGQwMUxc HtUbEY9uUUU3MBSfIR90DJE5TS PjFEjwSnM9Ra6gYST9XUClBD18 NTEgNTQgcmUKZgozOTMuMjUg ZjWvLLEpRxGeMYV7CKClJhVIGE CzXdy6Byd4ANB5PvBqOL58FFXi HJzuLgAiFKF3YKR6ZeAhVVGl UfPovaOPMzwpTAC3GVdmTlIlFC 34GLVbPJDdGpMttbTDZwo8SOXp NgLmJmd5Kpl1SSIvUfYsOTOh HA12QQCnWzROZS05XFmlVKRuxb koFK60DQE4FKucHFi2BbBiCLEa MBEtWtAFGIDwn1RqIdScGvz4 FWH8Qx45RED1BbWbSYWvBD71AX BrYHonMvAeWDT0NL9zYVH6LuDt DKLuFwWbhmTXMnelKKB7MuKn CGo1LX7jTdq1WSZoTrCEDESwBU Y7MaV6TJRpBaOpESC0ZYWtPeYY RCd3PxF2WDM4TT6nQTJgPds2 OM04JLGqUDajCgEvMDF0EJMcM0 9IUJVkIsIvUBH9HcCoGka3ByL3 DR4vUaSvZHskWwVpQKGnllpt KA15JTW6OEdjUxMwFmf7UwP3UX 1jSzk2EOYvZvHJXT70WRxhLDAy rameBIqqBBQ7CoBtVgn7AmS9 IQ6uLzZnMRfrHbJpJNKcoajgZV gmTPP5LzZ1AKM7Vr5gOPInOT51 QOHpSOocXeWfDIPsIX1xYPP1 NhMaLCGyLqAvhfQYRnsmWXR7LC PaQPK3FhYgLSMzZjNazqPTPszr TUM0AnNnTlKbIJ87FKUlXvav HJByWTggIeP3OG9gEKY1YaMqRs KzCN88RSMfNediCWWzXKlrPhCk UGM3CDPjA13VBDWoUfNcUFHb EuIfMEg8ZkHqBUCeRGIuCnLBNV Lhh6HoArEeIih2BWIuAg2vIXO4 RzYuYQHoFV45MOStOPhtGxWe XvK1KDLwDFR2Fqc8NS9fPfr4NU AwOsPUOYB2TSQ3SI0qYAMkXGQf UkIzOPHyHhWtfeUQIdi2Ieix CXQjOYVsFlNyQXD1CxBsheZYCh x3RRHfXPVdVEWgHeLvGED6IrCu igDECgcaYtzeHODmh8TfLtDu Nh00UAB7HGplNqByMAZ8TcK3TA 1pXcObGLrjVmSwXPJzfht9Jmzr PpNxCIm6YDC8NK8tMZTaPO01 WOOrNTdrIaEqPYQ5AG86JIB7Sp WdEIFnWaWdvbOMIxoiMAI1BYTa ESy2MO5bOiq7OYRmRfFLNUZe UJZ6Fcl6DQJdIqRbOEB7QoAktz XKAxd0BSQvEuGjIBM6Zjz7YCCi OhAkALH0ObJppiYKPzmdQwfp LSHuq0OtFnWaTop2DFO0NGK2Ea YxMPCtXOPvpmFHBubtVAIgE23A VVDtZrKbFQGqMbf0MCK8HH00 CH6tLaa3FYOfIxCZPBOuMHVjMv Y4CRW6RoHmXB22RTZaUGmyHoLk KVN4XK08CDN4WiRqKSOqIuRl wmRWQqdsGGF6BVAfVnNeVS37AJ CoLpEdNjVgrrAZAcr4RWUhZdHt DPEvLkS4XANhWbXbKMTgSyD1 GNMzZzKMAE04PBkuXKRlxcahXL 43RZN2VQAoYTX1QtObHXJrVMPv zxQCYubwZQAuP04FOIPxQiAp Oid2GnB2SYT4ZA83QB1yTtl6DK TjPvCGYMRjMnAdBpB0OGK9CrCy SV77HQDzBNbhMhViGQMtXA05 HAT9QoSvUB81UCJbMIusOiMeNN A9FH9oMAIhRcz0AL42Qb05JAXt DeEYJNe5ZwW1XXD5JL1dTIXy Heb9KM60Zk52XMAhZwJFYL43NE jxBGPhqmsjPI85CUBdIHkeQVG1 NzQuNSAtMTIgcmUKZgowICBz M63GRLVpPjXsBaS4ClG5IFX6TE 93TC2gLbk8WXBiIdGMGS19PHmg IHNjbgoxNiAyOTQgNTYzLjI1 EN9yYO18VQHyUpBLLYSjr6MzUa R5GIH4Pw71FAL4Cew9CM14QM70 RAIlApXAVQ51GFahMIZwmfxs HkXfYRJyUMJvSf73YBJdAYZoIH CrJFdiYzKyELZunpc0Vl47OCDf ATGdGHT4Oe22JPYhNtFzFnIg qpSYQqymMsjeYIGwc9LeFlBbHe h5BFD5Dj93ITHqDet7FA1aHL8l XSYdYHcuZzZkPCPtwxl6ZK20 AII9Zc86FMAlOjT7ZG4mQF3gTQ KsTNmlZiOjUHN6EOHlH47UIZHu MBGnUJGrZYHgQJ9rTSEmUnJu AvFvpqHZDlwlFXDpA52BXNB2Cb g9REH0Wx46QEI3SuHyDJNjRnY3 HNRpTcWCKZ47TGcfXJEgpuzc MTUuNzUgMjgzLjUgNDkuNSAtMj OcUhGyceTCDntmSJOlO18CPZI6 PsZ9QGU6Gh37IKK4VyRyHSHn AoC9CMPsEoLYDQ25TLnaPISfnw oxNjUuMjUgMjgzLjUgMjguNSAt UcTnSoTpttFRDdczUEJlT37N UZipJkw2BUA8Os89WBEmAC8yYB 4sWFKtGLivZgAiMWH6YWJbA35T AVohQyp7NZX8Nx64JOMwJV5j ZW3mDSCoBFviZmMcYYVynfirCp UuNzUgMjgzLjUgMjUuNSAtMjAu PgHzocTKZxssIphhTQNqx9Vr LzEjTR05QSGnKLIlHOWbVU03UU 8uDS5xVRBfAJrjElJoRUPnlrhc NjEuMjUgMjgzLjUgNjguMjUg ZSFfXzZ4UYPbZoGBIE18JTchFN NjbgoyNjEuMjUgMjgzLjUgNjgu XqCbXHCaLuD6OWUvMsUKJVJt s4SzXbZiPT11AIZ5Ga85VKLzYo T2MB1yXW2rEBApDFbzWtBfONB5 UNMkJ69HIqM6IxSdVlkhXuLd BSLzSsWvIXIkPpE7HABnMdRMXE Bnv6DySwC2Nl16RSQfTNUrBURz Zj35SGNeNtWeYaQpllLHVtxt NdziMIMrq6AfVxR8Dy54JWNuPO MjLHGkBu56SRCgMwCvIgSlgjTS EppmZVPxE66MLBZ0EvMdDmrh FfWpQbGlYlToKRNwMmQ9QKBcOu BHRI21WIxtDFUanro1PFkyQTId EPXeEULiQj9mMDKwLfMnGhAx sbZTGbchIWXfH20CJVRoNgq4JY Q4Yj24CBC3MaZsXIOtClC1LUGl CjYIXF70OZbpUWDfbsy1PNYw NzUgMjgzLjUgMjguNSAtMjAuMj SlykDRXoghUGRkI90BFDqtHoS3 KOS6Rj66MAO0KC2iVI3yCCPf DDhqJbBuRWU7BKGdU20LVYvqPu V4JMH7Ku35LLD4OE3iJN5iEQOw EDnvCpYqSISoisv9NXxwMaYj MjgzLjUgMjUuNSAtMjAuMjUgcm BQAmmjOfxwPPNox0AfFzUyPI0r EBPyGAQsQPVzRI06LS0yZV5x QBFfDJeaRkRbNCWlade0JIPrYu UgMjgzLjUgMjUuNSAtMjAuMjUg fmECSyrtAniaYPRmb3TnQoY2 LW73FQEmALFlBHJeRI88UP3nXC 0vYQZrDAswTpKjVQRmpcs2NzZh MjUgMjgzLjUgOSAtMjAuMjUg jjZGLfmpMnuoIDSpy2PyTlJ8ZD 0rIHQqWZEcXBI2UU9aVH5fEWUa KYugBbWbLXPvgqq7Wr15AWOq IqEfRqRdJSMpPcJsSOEmBxJ2FO UsAiWELE64BGwdLVMiaub0Iu20 NSAyNjMuMjUgNDIuNzUgLTIw NnG6DGPkJtSUAMSyl5EzCrq6Lk ZsZcHpKgP6MVQfZrL3SG2eQO3e DARpSMmhQzOpWDR6AUCbK28C OTUuNSAyNjMuMjUgMjAuMjUgLT JoGkK8QDUlFlLRUAMgz9HfDvVt CX14LPNyLbBzXrIzHXnwQHSz MjAuMjUgcmUKZgowLjkxOCAgc2 KePxCeTV23UNKdAiIuFhGkAIow NSAtMjAuMjUgcmUKZgoxICBz N00WHTV7JtI0LIM0Ut4hHXXwEF 59TZ3gHW0rMAGsDDawIcEdWUU8 ICBz (more content not included)... Normal [place] Coding Summary.on 07-14-2022 Coding Summary. CD:[id number] Ww+PGh lYWQ+BK1UXRWqD42eiFKuzR8cB 0NMTElOSywgQVBQTElOSyIgbmF sNB1jrBHfJUYv IC8+RX3iKJWeLxgtlJJbo5L4iM L8P97mkv6nORddtCE7RQIuMdNn fkthz5vngJk4MPoaNghvGbTo YSUzuD29VZA6fL86Yi43bEFhsT Nmd8mwqDz9YgAzBXLuEIG1pJkf FQzfg5DdOMPcE77utCVov2F4 KMHumGaipOPaZfThjUT1yG4mBZ almeqkr7hvkgbkYoi9rw15hEJr s4V9aAC1H1GrzgC7ZUUfxLAt OnatqHOHeH8hhntln8bkrwciBm OmOVOdOAl4RCp4JRVjcFhmGhHk JE68DND0DGXxjhBeK5SgIOQi yNpbUxG4t8P1Ee0OD6OAIebuB5 VNTUFSWTwvdGQ+OC98tq60V6Rw PdjqVjf4YSKzMMS3mBP6lV2h CNBhRSwuc9U2gJR4X2CqwoHmpc 8ng5jlJAKcVNvuJ75aiPElk6O9 CDJzcFY7ORGogJgiLcMbrB85 Oyc+YQXnfJhmf2QdXrezd9ith2 wfjGe4KhsjZNEppyZpbZgrSLQ1 b2IrKl9mKXBfqCR0uLJ8mJ4d GaWzSmV1WQkiL281QhLibUMvZk qqL81kR3RtwTH+CBFlIit9JTWh tMazOK4aK3CoNEKxwnwmfWQw pYlaTB2yDUOxhfuzHSSeuG2qUW CvB7m5PzIoIbJ5FKtzS7YcMDHo fcqqIq81kY2uBiXgYdK4ZByh V7AxkuJ6FCVubMGpXRrfYUW0T9 9wv7K4QFTjALEjBKW7kTO1zF5d bGlnbjogbGVmdDsgdmVydGlj XDudIOscT414XTRgkZzeNeWwRZ luZyBEYXRlOiAgMDMvMzEvMjAy MzwvdGQ+WOHvTLK7pUsgNBWo qIYhBEnfXx2npQfguBeeYR2jZG UaauhuAWUklZ0jFBQtcWZrxRms SY6rHQNogynmt489UoKaRHQ1 UPUonDBkD4XgjC4rFqYcCGBoRY PiS3OplXQlCPwjY129EHgaLkM3 PDJlrmEiA7BuGCJudLzuZlB7 q5B9Mw8Yu9PasktxB2LlxCKtCf ZbNfqmAQt6M7RcKynaaJF+PC90 MUEtXN37GAm9UWD8qTflYEzf XSDuE0HuiX2jNrWgWIRzCIKkCr c+PHRhYmxlIHdpZHRoPScxMDAl VjUrlFmcEA0wRy4yEGDtVLZg fLwgaKTaSxIhd4tlUIJcSYvtJD 0ueIqwJ1SobEW6HYRiq6f8Af59 S54lS4QqbTJ+INRqgQL5cJK4 sJ7wJiPlLzP4EJytK835MrHciH VpHjxee9nrn2pgnHz9QcY4DUYo jfJjdZihVKR0d1GnRv28A59j IHdpZHRoPSIxNSUiIHZhbGlnbj 0edC1eUt1+NHHrdYF1kIP8nY3v FbJxMpD3WVmzE142PlEqeANw Vbals8hyd1bgoCz3RwWiTBCjee EctDarJIC1l0UnVp78B2XvdTzu m1LqEkh4im72dVHgm9I6gVQ8 X4SuSJMldfdvxYKjlFnzJL8mTV CfvqboPFOgiJ0fDGZzY3z5CgMk QrT5DLmgZ6RlfrY6EBHpsPMk FKQhfPECsW8xlyucv6bnbdlzXh OqBNDgEAg3GLq2IMYoaZmsUjBk YST5ZcB8RXA3qQSnsF5ntLzs nccqzV0uRwg+JWH4vUCnlTASIH 1lOjwvdGQ+JZWeOVB9nLneGNlg EPEhgC0kHEYiX6q1LdAuMzD6 YOmvR0NlzaJ9PTZjiHQjLZIojE NSjH0drosxy0krlgumLfZgYJPb YOw2BQb5VHRvcHbbBaHyFPM4 CdE0FPM1eAFsmN2dtTxqmbkarB 9wOyc+EalgmNdmWRC7YUp8F6Vs Dov0TXXjiUysBZ4pvFRpYHyc Xr5juYxjxAtkEJ2uMNPwpcykv9 98PsLfv1lfGQGvrVGbEIjyXXA7 R53oe0F5JRTaFMCaQPR8gAP2 dU3jiSlqfnontUZdzVlnomVxuB fjWClkIIakL695FMTuvHaxRlHu UVq7E5WyTpe8OVYeaSymIZ9s kEXvDDgoKv3zsYsdqAcyRB0uCV Liyfgoa680OrRep7ohYMZarEXg NQtvVGW8C14hi9W3QPPfXPKq MIZ0eAW9uW0xbOqubvpbiNHnmF uyppXjeYmtUCocZXnhZ142PACt kGxcUcYpmAv2Y3RwJia7VLNw jLeoKL5enNDpFIwtXi2yxRzayB uxGQ0hACGqtgirb202IcFjd1xt KWSwzGDeXVumWVB4C33oi8G2 YUIzIPRxAAV7gUR1bQ7jaYnprd ogbGVmdDsgdmVydGljYWwtYWxp R715XZPwqPvcNsZuvRhctuGj KNxqLMi8F5LbEkkyhLN+PC90YW JbEL53fXCyfUBog7qqrYc1NeVw WPDeXLM6rQaoYJcri6SbFHPd P45blISrr2F0GQAyyDpjcGMyGa AozEX1tJ3pCSdkdwebw3ncujak Ybfkt3raze73fB97I77gOHbl OPCpMJHsYCVcFRZwqMezil5wqL 9wIi8+GQHcpMX4tYO0rV8zVHCs CqH2PKzoF684SsZfcJXrJbup s9ost1fprXs2DpD2KQRudoKzeA xlAGA5w4BjEa49E96uRTdsCSOo CCIbEHBeEZNtoUgvhp4riZ3i Ii8+XFRrwKC0pIT0bN1fHmWgOd X8CSjkY970RbFxvGYcAgdwG70z R8YtoHN+ZMSmWof8JNFwsEbx RY2amTYqNXduHk9jWNH6RgVvCp IpFMnfT6DmSXHzswbawykwrQQ6 WNKoFYNysX34Wk0ktKpzFCAr uBQAbG3zwcszv1vqbbfjEgJaFY MzIEs3BGk5DBMixRwpZmQhDMC5 CmI8OCR4gRMeuX0eqKxctxaa tP9bO7QuOORboblzOq39nE2fRp FdFeL3OLzsQlk+K1GLYFIPYUPZ Ha8UBTL1T8KgVue3UKHyvXla IY2qhCCbMAttRa0roAtgxUslCP 6aIEXahvenZCSqrI2oSFBueFSl gIyxYT5lHTIdzelud776DxZu YBC8GSOwbYWeV3RkhM8yGeOcSY OzRPMhM1PxgWJsFFseO854FQge QwQ9HLChjyDiY6MpLHGotZoq VvP7q9E9In6qQX1vTt9lBAI0FH 62ZV33kYVqi9S3hJQ1H0IfBSBw aqcwpqfxdOG6EEMaXUAajJ90 lFTdQPxvNd8zk0E5w071ZLMgVF LntO48Ja3ckGisGYOvwYKFaM0h oyaqa5zltahxYsIpXXWuJFz5 DYx3PPVibEeuRdZvOJX4YrV5VN C3bFKfaC5slNtimzqvvU7gViq+ HiBcFRRpbrY6K1IsTcr7IAHc gRckAU0naERrXWmfKk7diKsnrK ahUP5lDIQdmxtgNNFvyT2iHTOw kONpiFqkPT8qQMFeoxxpn882 GpSxCVN6MEFgqZOwN8PwgN3nCg CdLUHwSBApJ3DarYDyEAqvV257 UWxmQmO3EZLimhDqQ1VzGTNy gGoiJzC0i6X9Qi5UAGfsXN83KP 49nJHoe1R6kAG7P5OlDBPeoqwe zhpvdDT2QYDyUJRuuR67yVDm LWlpBc9na8J9z448EWTdSZLvxZ 93Dt4xpPqcZFMtvIKYiI1dvkjr l1oquoujBmHfNUWcMWd8VJu8 XYIyhRymPyFnAPO9GxX0LYL4aJ QlkK5ogKrzorobkT2oUqx+RW1l vqoabiL1TK87GQ29X8CrLtva dGFibGU+PHRhYmxlIHdpZHRoPS cyAAXlXzChrPclUU5sBv5xONQl IVOtgFvdjBNfOgCno3deGRDz GGcaLH9cvEefN0LjiAH6NHYor7 i4Ux62Z20cL2KfhSO+PGNvbCB3 tWA8kQ9aKtBrRlJ0RRlbI283 ImSmdODeZezob9tun7yzlVw8Kp EeLYBnppEzlBuiLRT0q7SlYr69 G06xGTndWZNrVDKnXYAgRJPd qMsadg5gkZ8rBc9+ZMPzlDJ3rA D8fF3tJyKgPgH9NKhtB716IsAu bITjHatdU60vO9OhlPB+PHRy Waf4HFLymZsyVL1ruDQwZLkwRa 2yMHA9VrXbMgVxSBcqP3PvRACq tcyohikihTM9NQLsQLPebE40 Uj5tiHxgAt5mOEGkQCT1PIAblA HwA2TfeB2iUqAqBHOyJENtN0Fj zSSkHQctJ550SZsvPwD6ZCIt mfYpI9QbTVLyyDdsLyE1e6Y8Rn 2WpWvmzKSkRT3qTiSbOXk0H3Uk Oew4NFWcuAuvZR4tbFUxLGtc Aj0fpAwlhJafSI3pAYMipjqid1 57DzNyp6xhLQQfsMSnRTlpSBU2 B47vt8W9IRWaTIHaAEY9vOO0 fT7skFqbaprdlYWzgHwjrgXfhK kzNBdkVIpoM383DHDsySrjGiUZ Tzc0T3EyBci6ATTyrUuiWQ1p cVJcTElfHx0icFjhrIydSN3bUF Gcbfkhl803FzFgq0uuWPLbmUDm RZgnLGR0R32ve1A1PZFpGQCt HKK3bHH8lQ2kbFabnssqkRTwpV lwqvDrkTmsBOstJAzeO825IJFu zGboKj6LHsh2C1SuPxt6EJUq xFxkEL6goHPqASpeVn7sbIdwrN fvFT6rZBCwpavzr441RjMqa3zq FIIfmTKiZYceSGP2Q99wt2Z1 TJWqSYFvCNB5uNI0dT0gpGqfli ogbGVmdDsgdmVydGljYWwtYWxp Q706BZBegAgxOjDaxMNwFrvn dGQ+OY98ao75I8ZjDmbnDrx7DB WnQVB6mWK6kB3bKZJzBEljt0Z3 nXK9K5XyglRdmv7xh4prMYNq ICsdP54x (more content not included)... Normal [place] CT Head or Brain w/o Contras ton [...] Lopez MD Transcribed by: TRACEY Technologist: NICK [facility] CT Maxillofacial w/o Contras ton 07-11-2022 CT [...] Lopez MD Transcribed by: TRACEY Technologist: NICK [facility] CT Spine Cervical w/o Contra ston [...] Lopez MD Transcribed by: TRACEY Technologist: NICK [facility] Consent for Treatmenton 06-15 Consent for Treatment [id number]:127 Normal [place] Discharge Instructionson Discharge Instructions [id number]:127 Normal [place] ED Clinical Summaryon 2022 ED Clinical Summary (Inserted Image. Mallory ble to display) [place] [id number] ED Clinical Summary Person Information Name: CORONA [...] 07/11/2022 09:57:32 07/11/2022 09:57:32 07/11/2022 09:57:32 ADDRESS: [address] [place] [id number] [facility] DOC NOTES: MEDICAL INFORMATION: Prescriptions Given: [...] Follow up: With: Address: When: Idalmis Silva [address] [place] [address], [address] [place] [id number] [employer] (1) In 3 days 07/14/2022 Comments: Call [...] fall; Closed head injury; Facial contusion Normal [place] ED Note-Physicianon 07-12-19 ED Note-Physician Basic Information [...] 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 He reports that he [...] Idalmis Silva In 3 days 07/14/2022 EDT [facility] [place] [id number]- Business (1) Additional Instructions: Call the office [...] or worse (more content not included)... Normal [place] Comment on above: Result Comment: Elec tronically [...] Ask your health care provider for a oxsf-wr-tiha plan for gradually returning to activities. ? 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 Have them watch for any new or worsening problems. General instructions ? Take edau-vai-cwxkpdh and prescription medicines only as told by [...] how mu (more content not included)... Normal [place] ED Patient Summaryon 023 ED Patient Summary (Inserted Image. Mallory ble to display) [place] [id number] Patient Discharge Instructions Person Information Name: CORONA WHARTON Age: 77 Years Arrival Date: 07/11/2022 08:09:24 Discharge Diagnosis: Accidental fall; Closed head injury; Facial contusion Primary Care Physician: Idalmis Silva MD Provider Information Primary Provider: Gerson Luz DO Advanced Doughmaker:Clive The exam and treatment you received in the Emergency Department were for an urgent problem and are not intended as complete care. It is important that you follow up with a doctor, nurse practitioner, or physician?s assistant athletic trainer for ongoing care. If your symptoms become worse or you do not improve as expected and you are unable to reach your usual health care provider, you should return to the Emergency Department. We are available 24 hours a day. CORONA WHARTON has been given the following list of patient education materials, prescriptions and follow-up instructions: Follow-up Instructions: With: Address: When: Idalmis Silva [address] [place] [address], [facility] [place] [address] Business (1) In 3 days [...] opioids can be used to help relieve myledzex-el-aoncbf pain and are often prescribed following a [...] pain. o (more content not included)... Normal [place] ED Traumaon 07-11-2022 ED Trauma [id number]:127 Normal [place] EMS Documentationon 07-12-19 EMS Documentation Please click on link to see report [id number]+ ozfVPrqDFXIvONqSPVsMzS3TPt rCeXaDU9ewh6EDGeZX2LuEMDpF ZvqOa7P DDydYAz6NSWoMQ7OW7saKIv7Gm D6Lz2KaA4mNYMkxzStHLBEM68h XxmiZxOxEEseGHQsVJL5VLHT Kt6eKGSeZFXgQUZoXHTiVAWxFR AgICAgICAgICAgICAgICAgICAg ICAgICAgICAgICAgICAgICAg ICAgICAgICAgICAgICAgICAgIC ByECfiptKdBvcGMq0TcIUaBx1A MjIgMjUNCjAwMDAwMDAwMzIg FJIkQVHgke0UMQPkTSJsYAF2GD AwMDAwMCBuDQowMDAwMDAxNTg3 OYCnUICaAN1AAwMhGZBnYSE2 PHMaXMIrVEWrxa3IDXQfNOQfBA kzNCAwMDAwMCBuDQowMDAwMDAy JXm0WSYcQXZxFW6ZOpUfBHVh IXZaPwXoFTHeNNFzjl8IMDPqXP AwMjMxNSAwMDAwMCBuDQowMDAw EGShCne7LRDeXOGsTE2IKrYa OIAvQPX5DGeoMYQnJNJtzx1IJQ AwMDAwMjgwNSAwMDAwMCBuDQow LGDvFGJyHXQ7KACuUHUlSQ2P IiPfKZKzBUU3PYsnNCWuVDQjnb 0KMDAwMDAwMzYxMyAwMDAwMCBu WCddDXOzRRVeWYD1DGRxHSPz SE7RXeSvGGZsFYFgWLexHYBuQM Ijyt3VVYDbQKTmRLX2BlWfHJVl XDNcYUigOHXgSKJ8UfXbHESm PJQkTD1DKxJqCFThYJC9OuEvZN XcQUCjdj9XPHQvEOItLNJeDFZo FOFrCJEgGElkUUWzKRB4HMCt WUKfEAJgPC1FWfDiXEMoUXW0JG SgULXuHZYtmi6NPOQlPUFdHXH0 OCAwMDAwMCBuDQowMDAwMDQ5 GAXpSTHmWDHbMO5LIkCgWGUyIN C9CdNuNRAsBDSubh8KoOOpzDbz fp8ZIWgGZ0gIOPx8UMQ3BUVV YgOsISZ8PHJ0BXp3OtcRJhNVWg NDRjUwNDA+CjwyRDhBNTNBMzdD YEItQXQQXDp7R6LQYKOQVyDL OEANKH1qYv3XylG6NXV7QzvmCN vrWj2klJBtQfLqFWDJS3DgpnHz SMgQY5QylUHtXUVrY5VHVAK1 Fb79PeojyXsHFNE5XTRRGCzwFD 3ACohVIwFgPYkeHa11Z4HOm1W9 DrBwX6XBgHjItdQXPWknV5pD eRI4r8gxfLgMjCQGzFreSAmLdc rMtnFFSCxcOUHVuC63myqPV0Ay MIm8E1UQBh3BBBskTdGpbO1L xPihKFK1aZ7hJBAJHDgKVavvUL 1ATWOWQDg6ILf+PiAgICAgICAg ICAgICAgICAgICAgICAgICAg ICAgICAgICAgICAgICAgICAgIC AgICAgICAgICAgICAgICAgICAg ICAgICAgICAgICAgICAgICAg ICAgICAgICAgICAgICAgICAgIC AgICAgICAgICAgICAgICAgICAg ICAgICAgICAgICAgICAgICAg ICAgICAgICAgICAgICAgICAgIC AgICAgICAgICAgICAgICAgICAg ICAgICAgICAgICAgICAgICAg ICAgICAgICAgICAgICAgICAgIC AgICAgICAgICAgICAgICAgICAg ICAgICAgICAgICAgICAgICAg ICAgICAgICAgICAgICAgICAgIC AgICAgICAgICAgICAgICAgICAg ICAgICAgICAgICAgICAgICAg ICAgICAgICAgICAgICAgICAgIC AgICAgICAgICAgICAgICAgICAg ICAgICAgICAgICAgICAgICAg ICAgICAgICAgICAgICAgICAgIC AgICAgICAgICAgICAgICAgICAg ICAgICAgICAgICAgICAgICAg TN8Yz3BuytV7jnOmTRagIWuqTG TFJt8RLCncHhHjFX9tjq0KXQqQ C37xwYQuATMiIYQsEURxYoxx U3QcwyKfcHftqeMrAdUuEUTZLx 6JtWJTSLwsC8X9nExkUDDmHGyp OJDVVl4HNMilVX8bQYKsOROi Ll8hLEdaYKIqQHYnYbFlQVYTUo 2RpDDqYV2LKZNtmH1xNz0+DQpl icWlXpdUEt3DSjQmNNFmTcwS Opf1Cl3FfCh5SENsP7ReNOMwJY Qtp8EvQx4IZJ7mbJuyEBH4Yb1F UXj1Sh3+HAobwSKtSY0LKvnn D6BnKJEmGTOpTQNnHHuQTpEOEW pTgGwhqBgXA+OsNgjzizkDMsAQ JdZTIjZCmXZdUhY7WMoFY5Y7 ELgJJkIqN2U4OFkZIJETMaYcPG rSgHqR2lAXtKvIxaG2PVP9bBAC DHPrGRgm+lCdRYJyOwSCA1YO Wn7HUV9eb8VwDQEnBLiiytKeSv fGAa6ZIcBuMPIpRvsTNdq2Sk5W x961EY00ahEbXOJpDSOCYHis PVWqlJONs9kqQcJjZSG2VASvDn gyVCfoTBZtZI88FDUmVWSpMmkm VtEmr6WeE1UaFSc7Eb5FR0Sb NXY1RBv5Zd1RBYOqLgCjOlNaQE ZSBf9EIm8KE6U0nXPeM0VaJ1MG Pa7GWeYkVO5xaq5XPMbyDzTe OV1oev0QIGcCE0KAh9qdTiEnTR P3JFYiUmcnNYerUrofrNTjXE1R rCG6ZJKiR46jHWweEVEzX0Gg MOm9Ts5LRLWhvBXgYQXpYRiES2 sYNovrL3RhFDrHU5cpOrX2LJCs IDAgUgo+Pgo+YafwI3WuuMxo VBKdDt4etNaaTZifHNEmPI0duy VjdAo+Se0Ze5FjXSWwQDi4kKCO 1ELu6ERaETYrSSS4RCLyhqHQ UFzx0GpPuOKcMwXncFKsS1wiMJ Rl84dLFGLnLptSs2xpMtMi3AuR JZ+SR4RIvpWsTzGrmw1XSLun qjYevNCmPT2UWiMtAA0bxg7PFR blNnGvIH3eji7WIUcRR3VCPM6J n0XlLXtRJ5TNQWIYB6pQCDQD S2lFVZCJG9dKWJFNV44RYSKTU9 KJUYIoeXAII0QkYSTAKv5LXaZj SC0cou6KDMvyKZMtLI4bin2M YMzOD2CPID3Au2LlNErKO6XvVV ZFHx0WYcDnHO6yxb6QYTfqQAXq XU3iab1NUHkXK9EAUJ9Xj9Vk HAoTG3QNOETUX8jYBRFFW6cUBJ RZW8gKYSQGZ63NKUBMS2IUXQBg ySAYW1BjHKEENj2NYaFaHY9o ok1ALMamTYBoHT3fzb7IDEyWL7 Bnx0HOp247YM7FT0jHDwCyN529 rcqvvn1pv4VCUMKubFJNZIjc IRWmZ8NtXVJvyBBpkqMoWJgvGI AqTGTyGl0MurNnASdcMoKgKCLu lhHblYlxNDtmN9UjyRekNHOd ROedHNWBS8DxYH6mZ11hUBKlLf WvYVVEW4I7dTCjQ3PyouQTFq7E XfFoDX3xxr3TSZzoJGZzRD5z vg5LRNcWN6Plr6KXq216BD2NM2 eVTcQvN482qhlfdy7rl4RJZMRy pETPDZzzW8dKR2uvkWFjBH0y xdT3YXorY0MgWIPuobckBIobOU 54uBL5LUfqZoCetBI8uzjxXSNu e5SaRJioK1RtuUesyFLlaSMw Cj4+Gp7HJWPFb1rROP9pnSKxFD MwnoEhsNjSK2FVQVMDO6NdkhSO FZNokushxH6hPBFtHUMiZley K0DlhKnlBKGnJ0dDIf2inRS4rZ WgUw4TfFIkMP4Cy405Sy0VGWvl DDPlWFT8TDYeUNw2XxZrAh0+ FFinudNlRysELg3RRgKrSDWuFh fECyu8Cm7Xp3WncqUmKFOgJfNe QWMyVo9QXPJOBVorbJNwKJti Ktu3Gpu8Qr7WBCCjBB42FZCuQS 4cXGA3PwyuNbyiZ5QgTeIPL3Dy hiTFHu70QPipKAgsGnw0OTLn MG63ZMHxBAV5SpXhBoAtAeU3KQ Y5ELIxTeViGVwpOFMfOr4Kl188 HkshHCLzXZJrTDVNYr1Jy092 UjYwQFTcF8QCZ4kIT5TpfFWuEQ CJSFaXJy8Jw6dqQAFDC5p8MNjr F0SrE1dvCZEJN1J0WT7AFEh4 OiL0MUs8Dd8PjAHfUE4Jx870KX YgI3PhsEAxlyx+Iq1AYR9hw2Yg MCtQLxQxVXWqs3VhCNk5REfo FnttoSBaUY0MiHQ8KWQzY56zKL ypYIInG0ZnEBArNTl+Om7Da3Tw OEAtEUg7lM8Tf90CZEB0+yt8 bU5YlzVyNwtkEEhLcA+O6hPXfe SWirGMc+Aod3VqLmBVCWIetFT4 JYFvdWqVGDm5h8bw4Q7L9JHy f63YI9YAVBHXvc9KB9T9BfwNeo qd9xzF0Jh+ZLRJwnQCQ3mlP/6w 1+JJQcei8cU0Vi/22fnpO81k ar8WLWLablgSl+ew3idcTthXwH T8XlAzzEzcPuuqdl/ZTNmWI0hT RuPXpkTlJ5dBGwj1Dw4o8lfC WM5xGXtBbVsauBh4RuWPTHPz2d NWNDjWULhl0dOpHJA9Vde08x5J N8ImiwY5B90xIIOkomC9cWYX B59WnlPzIJvnqyrWWsp6BXKZ6u HBQAtaxXOuWrIfXYPhS5p7GZeW qGfrMAepuOyEdzmrr15Uq8Zt 7TYWbv+CN28wUi1kDNbewu5DAV 6wl0JpEIAgEXskmvTmZdgEMc4Z CcGvZAVhXrsXOgt3Fq7XPXQf Ir3auNThZlUNMu4MU9LzlCZtLE GEEOuAT17ZJn2IVMIdZU5yDX50 Bv8kbIEtAaL2QWUsNd5JZ3Jl O52ytN0hPQ5HRRZyjRp2eT9JPi 8InCS5lFPuXJ8HpPWgGPppIH7N bmlj (more content not included)... Normal [place] Pre-Arrival Noteon Pre-Arrival Note Pre-Arrival Summary Name: , Current Date: 07/11/2022 08:10:36 EDT Gender: Date of : Age: 78 Pre-Arrival Type: EMS ETA: 07/11/2022 08:19:00 EDT Primary Care Physician: Presenting Problem: fall Pre-Arrival User: Laura Tabor RN Referring Source: Location: [place] Completion Date/Time: 07/11/2022 07:49:00 [facility] Emergency Department Pre-Hospital Report Form _ Vital Signs: Pre-Hospital Report: Treatment in Route: Response to Treatment: Misc. Issues: Normal [place] US MARLENA DOP LEG LTon 06-21-19 23 [...] by: GRAHAM SCHWARTZ Date: 2022-06-20 16:[address] [facility] [address] LSPINE WO CONon [address] [facility] [place] [facility] WO CON INDICATION: 76 years old; Male. [...] by: BALBINA FRIAS Date: 2022-05-05 23:41 Normal [facility] CTA ABD/PELVIS WO W CONon CTA ABD/PELVIS [...] RADHA CONNELLY Date: 2022-05-05 23:51 Normal [facility] PROF CHEM 8 (BAS METB)on Anion gap [Moles/Vol] 14.7 mmol/L Normal [facility] Comment on above: Performed By: #### B MP #### [facility] [address] [place] [address] [address] Bertha Bowen Calcium [Mass/Vol] 9.0 mg/dL Normal 8.5-10.1 [facility] Comment on above: Performed By: #### B MP #### [facility] [address] [address] [address] Bertha Bowen Chloride [Moles/Vol] 100 mmol/L Normal 98-107 [facility] Comment on above: Performed By: #### B MP #### [facility] [address] [address] [address] Bertha Bowen CO2 [Moles/Vol] 29.1 mmol/L Normal 21.0-32.0 [facility] Comment on above: Performed By: #### B MP #### [facility] [address] [address] [address] Bertha Bowen Creatinine [Mass/Vol] 1.33 mg/dL Critically high 0.70-1.30 [facility] Comment on above: Performed By: #### B MP #### [facility] [address] [place] [address] [address] Bertha Bowen EGFR-AF TOGOLESE >60 Normal >=60 [facility] Comment on above: Performed By: #### B MP #### [facility] [address] [address] [address] Bertha Bowen EGFR-NON AF TOGOLESE 52 mL/min/1.73m2 Critically low >=60 [facility] Comment on above: Performed By: #### B MP #### [facility] [address] [address] [address] Bertha Bowen Glucose [Mass/Vol] 260 mg/dL Critically high 74-106 [facility] Comment on above: Performed By: #### B MP #### [facility] [address] [address] [address] Bertha Bowen Potassium [Moles/Vol] 4.8 mmol/L Normal 3.5-5.1 [facility] Comment on above: Performed By: #### B MP #### [facility] [address] [address] [address] Bertha Bowen Sodium [Moles/Vol] 139 mmol/L Normal 136-145 [facility] Comment on above: Performed By: #### B MP #### [facility] [address] [address] [address] Bertha Bowen Urea nitrogen [Mass/Vol] 27.0 mg/dL Critically high 7.0-18.0 [facility] Comment on above: Performed By: #### B MP #### [facility] [address] [place] [address] [address] Bertha Bowen Urea nitrogen/Creatinine [Mass ratio] 20.3 mg/mg Normal [facility] Comment on above: Performed By: #### B MP #### [facility] [address] [place] [address] [address] Bertha Bowen Progress Noteson 09-26-2021 Sr Risk Management Consultant Authentication Interface Message Text EMERGENCY TRIAGE, TREAT AND TRANSPORT (ET3) DOCUMENTATION OF TELEHEALTH VISIT Date / Time: 09/26/2021 / 1515 Name: Corona Wharton : 1945 SSN: [id number] EMS Agency: [facility] [x] Verbal consent obtained [...] Completed by: Pelon Hawthorne MD Normal [facility] Vital Signs Date Time Vital Sign Value Performing Clinician Facility 07-25-2023 16:00-0400 Inhaled oxygen flow rate 2 L/min MD Idalmis Silva Work Phone: [facility] 07-25-2023 12:00-0400 Diastolic blood pressure 92 mm[Hg] MD Idalmis Silva Work Phone: [facility] 07-25-2023 12:00-0400 Heart rate 65 /min MD Idalmis Silva Work Phone: [facility] 07-25-2023 12:00-0400 Respiratory rate 18 /min MD Idalmis Silva Work Phone: [facility] 07-25-2023 12:00-0400 SaO2% (BldA) [Mass fraction] 96 % MD Idalmis Silva Work Phone: [facility] 07-25-2023 12:00-0400 Systolic blood pressure 152 mm[Hg] MD Idalmis Silva Work Phone: [facility] 07-25-2023 08:00-0400 Body temperature 98 [degF] MD Idalmis Silva Work Phone: [facility] 07-25-2023 04:45-0400 Body weight 148.9 kg MD Idalmis Silva Work Phone: [facility] 07-20-2023 14:08-0400 Body height 182.88 cm MD Idalmis Silva Work Phone: [facility] 07-19-2023 22:24-0400 Diastolic blood pressure 102 mm[Hg] MD Idalmis Silva Work Phone: [facility] 07-19-2023 22:24-0400 Heart rate 113 /min MD Idalmis Silva Work Phone: [facility] 07-19-2023 22:24-0400 Respiratory rate 22 /min MD Idalmis Silva Work Phone: [facility] 07-19-2023 22:24-0400 SaO2% (BldA) [Mass fraction] 90 % MD Idalmis Silva Work Phone: [facility] 07-19-2023 22:24-0400 Systolic blood pressure 152 mm[Hg] MD Idalmis Silva Work Phone: [facility] 07-19-2023 20:05-0400 Inhaled oxygen flow rate 2 L/min MD Idalmis Silva Work Phone: [facility] 07-19-2023 16:22-0400 Body height 182.88 cm MD Idalmis Silva Work Phone: [facility] 07-19-2023 16:22-0400 Body temperature 97.6 [degF] MD Idalmis Silva Work Phone: [facility] 07-19-2023 16:22-0400 Body weight 154 kg MD Idalmis Silva Work Phone: [facility] 07-11-2022 09:31-0400 Diastolic blood pressure 96 mm[Hg] Gerson Luz [facility] 07-11-2022 09:31-0400 Heart rate 96 /min Gerson Luz [facility] 07-11-2022 09:31-0400 Heart rate 98 /min Gerson Luz [facility] 07-11-2022 09:31-0400 Mean blood pressure 112 mm[Hg] Gerson Sukh [facility] 07-11-2022 09:31-0400 Respiratory rate 9 /min Gerson Sukh [facility] 07-11-2022 09:31-0400 Respiratory rate 18 /min Gerson Sukh [facility] 07-11-2022 09:31-0400 SaO2% (BldA) [Mass fraction] 96 % Gerson Sukh [facility] 07-11-2022 09:31-0400 Systolic blood pressure 145 mm[Hg] Gerson Sukh [facility] 07-11-2022 09:00-0400 Heart rate 95 /min Gerson Sukh [facility] 07-11-2022 09:00-0400 Hourly Rounding Gerson Sukh [facility] 07-11-2022 09:00-0400 Respiratory rate 20 /min Gerson Sukh [facility] 07-11-2022 08:26-0400 Diastolic blood pressure 101 mm[Hg] Gerson Sukh [facility] 07-11-2022 08:26-0400 Heart rate 88 /min Gerson Sukh [facility] 07-11-2022 08:26-0400 Respiratory rate 18 /min Gerson Sukh [facility] 07-11-2022 08:26-0400 SaO2% (BldA) [Mass fraction] 96 % Gerson Sukh [facility] 07-11-2022 08:26-0400 Systolic blood pressure 136 mm[Hg] Greson Sukh [facility] 07-11-2022 08:10-0400 Body temperature 98.06 [degF] Gerson Luz [facility] 07-11-2022 08:10-0400 Respiratory rate 18 /min Gerson Luz [facility] 07-11-2022 08:10-0400 SaO2% (BldA) [Mass fraction] 96 % Gerson Luz [facility] 09-26-2021 15:15-0400 Diastolic blood pressure 81 mm[Hg] [facility] 09-26-2021 15:15-0400 Heart rate 95 /min [facility] 09-26-2021 15:15-0400 Respiratory rate 16 /min [facility] 09-26-2021 15:15-0400 SaO2% (BldA) [Mass fraction] 93 % [facility] 09-26-2021 15:15-0400 Systolic blood pressure 158 mm[Hg] [facility] Encounters Encounter Date Encounter Type Care Provider Facility Start: 08-09-2023 End: 08-09-2023 ambulatory [facility] Not Available Start: 07-25-2023 Non-patient / Non-visit MD Iadlmis Silva Work Phone: On License Of [facility] G[facility] Work Phone: Start: 07-20-2023 Non-patient / Non-visit MD Idalmis Silva Work Phone: On License Of [facility] Physician [facility] Out[facility] Work Phone: Start: 07-19-2023 End: 07-25-2023 Evaluation and management of inpatient Matthew Rodriguez Vikas Facility:[facility] Start: 07-19-2023 End: 07-25-2023 Evaluation and management of inpatient MD Idalmis Silva Work Phone: [facility] [place] [facility] Work Phone: Start: 07-11-2022 End: 07-11-2022 Emergency department patient visit Gerson Luz Facility:[facility] Start: 07-11-2022 End: 07-11-2022 Emergency department patient visit Gerson Luz [facility] Start: 06-20-2022 End: 06-20-[address] IDALMIS SIVLA . Facility: Start: 05-05-2022 End: 05-06-[address] CODY AMBRIZ . Facility: Start: 04-18-2022 End: 05-02-2022 [facility] Start: 09-26-2021 End: 09-28-2021 ambulatory UNKNOWN PROVIDER Facility:[facility] Start: 09-26-2021 End: 09-26-2021 ambulatory [facility] Emergenc y Triage, Treat and Transport Start: 09-26-2021 End: 09-26-2021 Emergency department patient visit [facility] Emergency Triage, Treat and Transport [...] Date Care Activity Detail Author Start: 07-25-2023 [facility] Start: 07-24-2023 Referral to advertising inserter [facility] Start: 07-24-2023 [facility] Start: 07-23-2023 [facility] Start: 07-22-2023 Blood culture for bacteria, including anaerobic screen Blood Culture [facility] Start: 07-22-2023 [facility] Start: 07-21-2023 [facility] Start: 07-20-2023 Referral to neurologist [facility] Start: 07-20-2023 End: 07-20-2023 [facility] Start: 07-19-2023 Hospital admission [facility] Start: 07-19-2023 Microbial culture of sputum [facility] Start: 07-19-2023 [facility] Start: 07-19-2023 Bacteria identified in Blood by Culture [facility] Start: 07-19-2023 Bacteria identified in Urine by Culture [facility] Start: 06-17-2021 COVID-19 Vaccine (4 - Booster for Moderna series) COVID-19 Vaccine (4 - Booster for Moderna series) [facility] Start: 03-14-2018 Pneumococcal vaccination Pneumococcal Vaccine(s) (65+ yrs) (2 - PPSV23 or PCV20) [facility] Start: 01-14-2009 Annual wellness visit Annual Wellness [...] Screening for malignant neoplasm of colon Colonoscopy [facility] Albumin/Globulin ratio [facility] Anion gap measurement [facility] Basophils [#/volume] in Blood by Automated count [facility] Basophils/100 leukoc ytes in Blood by Automated count [facility] Calculated LDL alona sterol level [facility] Cholesterol.total/Ch olestero l in HDL [Mass Ratio] in Serum or Plasma [facility] Eosinophils/100 leuk ocytes in Blood by Automated count [facility] Erythrocyte distribu tion width [Ratio] by Automated count [facility] Erythrocytes [#/volu me] in Blood [facility] Globulin [Mass/volum e] in Serum [facility] Glucose measurement estimated from glycated hemoglobin [facility] Hematocrit [Volume F raction] of Blood [facility] Hemoglobin [Mass/vol ume] in Blood [facility] Leukocytes [#/volume ] corrected for nucleated erythrocytes in Blood by Automated coun [facility] Leukocytes [#/volume ] in Blood [facility] Lymphocytes [#/volum e] in Blood by Automated count [facility] Lymphocytes/100 leuk ocytes in Blood by Automated count [facility] MCH [Entitic mass] b y Automated count [facility] MCHC [Mass/volume] b y Automated count [facility] MCV [Entitic volume] by Automated count [facility] Monocytes [#/volume] in Blood by Automated count [facility] Monocytes/100 leukoc ytes in Blood by Automated count [facility] Neutrophils [#/volum e] in Blood by Automated count [facility] Neutrophils/100 leuk ocytes in Blood by Automated count [facility] Nucleated erythrocyt es [Presence] in Blood by Automated count [facility] Patient Education Heart Failure, Adult (DC) [facility] Work Phone: Patient referral [facility] Work Phone: Platelet mean volume [Entitic volume] in Blood by Automated count [facility] Platelets [#/volume] in Blood [facility] VLDL cholesterol measurement [facility] Immunizations Immunization Date Immunization Notes Care Provider [facility] 01-27-2020 Seasonal trivalent i nfluenza vaccine, adjuvanted, preservative free [facility] 03-14-2017 pneumococcal conjuga te vaccine, 13 valent [facility] 01-25-2017 influenza, high dose seasonal, preservative-free [facility] Payers Date Payer Category Payer Self-pay [id number] 2020 Unknown [id number] 2008 Medicare MEDICARE MEDICAR E PART A & B [id number] 2008-Present [address] [place] [address] Medicare [id number] 2008 Medicare [id number] 1945 Unknown [id number] 1945 Unknown [id number] 1945 Unknown [id number] 1945 Unknown [id number] [id number] 1945 Unknown [id number] [id number] 1946 Unknown [id number] [id number] 1945 Unknown [id number] [id number] Unknown Regular Insurance [id number] Unknown [id number] Social History Date Type Detail Facility Tobacco smoking status [facility] Tobacco smoking consumption unknown [facility] Start: 1945 Sex Assigned At Not on file [facility] Start: 03-03-2019 Tobacco smoking status Never smoked tobacco (finding) [facility] Tobacco smoking status Never [facility] Sex Assigned At Male [facility] Start: 07-19-2023 End: 07-25-2023 Tobacco smoking status NCIS Ex-smoker (finding) [facility] Start: 1945 Sex Assigned At Male [facility] Goals Date Patient Goal Desired Activity /State Functional Status Date Assessment Result Facility 07-25-2023 Functional status Patient is Pro gressing Toward Baseline [facility] Work Phone: 07-11-2022 Functional Status N/A [facility] Mental Status Date Assessment Result Facility 07-25-2023 Cognitive function Cognitive Sta tus Patient is Progressing Toward Baseline [facility] Work Phone: Clinical Notes 09-26-2021 to 07-25-2023 Note Date & Type Note Facility 07-25-2023 Consult note Note Date/Time July 25, 2023 9:16am [facility] [address] [place] [address] Gastroenterology Consult Note Signed Patient: Corona Wharton MR#: [id number] : 1945 Acct:[id number] Age/Sex: 78 / M Adm Date: 4 Loc: 3T Room: [address] [place] [address] Type: ADM IN Attending Dr: Luigi Napoles [...] negative unless noted below or in HPI [facility] Medical History (Updated 07/25/23 @ 10:04 [...] swallowing. Documented By: Brenda Zheng MD 07/25/23 1624 Signed By: <Electronically signed by Brenda Zheng MD> 07/25/23 2665 [facility] Work Phone: 1(129) 303-440604-09-2024 Progress note Author Luigi Napoles [facility] July 24, 2023 2:46pm Note Date/Time July 24, 2023 11:4 9am [facility] [address] [place] [address] Hospitalist Progress Note Signed Patient: Corona Wharton MR#: [id number] : 1945 Acct:[id number] Age/Sex: 78 / M Adm Date: 4 Loc: 3T Room: [address] [place] [address] Type: ADM IN Attending Dr: Luigi Napoles [...] recommended by ST -therapy recs SNF- plan [facility] precert pending Hypomagnesia -replete, trend lab [...] signed by Luigi Napoles DO> 07/24/23 1446 [facility] Work Phone: 1(563) 973-593504-08-2024 Progress note Author Luigi Napoles [facility] July 23, 2023 2:31pm Note Date/Time July 23, 2023 10:2 9am [facility] [address] [place] [address] Hospitalist Progress Note Signed Patient: Corona Wharton MR#: [id number] : 1945 Acct:[id number] Age/Sex: 78 / M Adm Date: 4 Loc: Room: [address] [place] [address] Type: ADM IN Attending Dr: Luigi Napoles DO Copies to: ~ Date of Service: 07/23/2023 Subjective Subjective Narrative: Patient seen and examined. LLE with some erythema, this is my first time seeingthe patient- bedside nurse reports erythema improved from over weekend. Patientreports minimal discomfort at site. Complaints of regurgitation of foot - ST has seen the patient and he is on [facility] soft ground meats with nectar thickened [...] signed by Luigi Napoles DO> 07/23/23 1431 [facility] Work Phone: 1(621) 573-577604-07-2024 Progress note Author Luigi Napoles [facility] July 22, 2023 2:21pm Note Date/Time July 22, 2023 11:2 3am [facility] [address] [place] [address] Hospitalist Progress Note Signed Patient: Corona Wharton MR#: [id number] : 1945 Acct:[id number] Age/Sex: 78 / M Adm Date: 4 Loc: 4 Room: [address] [place] [address] Type: ADM IN Attending Dr: Luigi Napoles [...] <Electronically signed by Luigi Napoles DO> 07/22/23 [facility] Work Phone: 1(931) 430-930904-07-2024 Progress note Author Matthew Bean [facility] July 22, 2023 11:17am Note Date/Time July 22, 2023 10:1 6am [facility] [address] [place] [address] Neurology Progress Note Signed Patient: Corona Wharton MR#: [id number] : 1945 Acct:[id number] Age/Sex: 78 / M Adm Date: 4 Loc: Room: [address] [place] [address] Type: ADM IN Attending Dr: Luigi Napoles [...] Level of Supervision Constant Supervision Liquid Consistency [facility]-Thick Liquids,Thin Water Between Meals Recommendation Solid Consistency [...] <Electronically signed by Matthew Bean DO> 07/22/23 1113 [facility] Work Phone: 1(800) 520-163004-06-2024 Progress note Author Luigi Napoles [facility] July 21, 2023 7:45pm Note Date/Time July 20, 2023 1:18 pm [facility] [address] [place] [address] Hospitalist Progress Note Signed Patient: Corona Wharton MR#: [id number] : 1945 Acct:[id number] Age/Sex: 78 / M Adm Date: 4 Loc: 4 Room: [address] [place] [address] Type: ADM IN Attending Dr: Luigi Napoles [...] <Electronically signed by Luigi Napoles DO> 07/21/231944 [facility] Work Phone: 1(936) 958-157704-06-2024 Progress note Author Sarah Herron [facility] July 21, 2023 1:59pm Note Date/Time July 21, 2023 11:2 7am [facility] [address] [place] [address] Hospitalist Progress Note Signed Patient: Corona Wharton MR#: [id number] : 1945 Acct:[id number] Age/Sex: 78 / M Adm Date: 4 Loc: Room: [address] [place] [address] Type: ADM IN Attending Dr: Luigi Napoles [...] By: <Electronically signed by VIPIN Herron> 07/21/23 0991 [facility] Work Phone: 1(197) 131-817704-06-2024 Progress note Author Matthew Bean [facility] July 21, 2023 1:53pm Note Date/Time July 21, 2023 11:5 8am [facility] [address] [place] [address] Neurology Progress Note Signed Patient: Corona hWarton MR#: [id number] : 1945 Acct:[id number] Age/Sex: 78 / M Adm Date: 4 Loc: Room: [address] [place] [address] Type: ADM IN Attending Dr: Luigi Napoles [...] Level of Supervision Constant Supervision Liquid Consistency [facility]-Thick Liquids,Thin Water Between Meals Recommendation Solid Consistency [...] <Electronically signed by Matthew Bean DO> 07/21/23 0638 [facility] Work Phone: 1(618) 931-265704-05-2024 History and physical note Author Balbina Garzon [facility] July 20, 2023 8:37pm Note Date/Time July 20, 2023 4:38 am [facility] [address] [place] [address] Hospitalist H&P Signed Patient: Corona Wharton MR#: [id number] : 1945 Acct:[id number] Age/Sex: 78 / M Adm Date: 4 Loc: Room: [address] [place] [address] Type: ADM IN Attending Dr: Luigi Napoles [...] of Systems Unobtainable due to mental status [facility] Medical History Diabetes Hyperlipidemia Hypertension Stroke [...] % (Auto) 14.4 % (.) 07/19/23 16:31 [place] % (Auto) 6.0 % (.) 07/19/23 16:31 Eos % (Auto) 2.5 % (.) 07/19/23 16:31 Baso % (Auto) 0.3 % (.) 07/19/23 16:31 Nucleat RBC Rel Count 0.2 /100 WBC (0-0.5) 07/19/23 16:31 Neut # (Auto) 10.3 x10E3/uL (1.8-7.7) H 07/19/23 16:31 Lymph # (Auto) 1.9 x10E3/uL (1.00-4.8) 07/19/23 16:31 [place]ary # (Auto) 0.8 x10E3/uL (0.0-0.8) 07/19/23 16:31 [...] pH 6.5 (5.0-9.0) 07/19/23 19:30 Ur Specific [place] 1.015 (1.001-1.030) 07/19/23 19:30 Urine Protein 300 [...] <Electronically signed by Balbina Garzon DO> 07/20/232036 [facility] Work Phone: 1(171) 338-951404-05-2024 Consult note Author Matthew Bean [facility] July 20, 2023 2:51pm Note Date/Time July 20, 2023 2:38 pm [facility] [address] [place] [address] Neurology Consult Note Signed Patient: Corona Wharton MR#: [id number] : 1945 Acct:[id number] Age/Sex: 78 / M Adm Date: 4 Loc: Room: [address] [place] [address] Type: ADM IN Attending Dr: Luigi Napoles DO Copies to: DO Idalmis Moore MD Shawn J Warner, DO~ HPI Consult Date: 07/20/23 Real Estate Developer: Matthew Bean DO [facility] Medical History Diabetes Hyperlipidemia Hypertension Stroke [...] David Zeng M.D.07/19/2023 5:37 PM Dictation Location: [facility]--[address] 07/19/23 16:30 IMPRESSION: No acute intracranial pathology. 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 Impression dictated by: David Zeng M.D.07/19/2023 5:42 PM Dictation Location: [facility]--13 Therapy Recommendations Therapy Recommendations: ST Recommendations Level of Supervision Constant Supervision Liquid Consistency [facility]-Thick Liquids,Thin Water Between Meals Recommendation Solid Consistency [...] signed by Matthew Bean DO> 07/20/23 1451 [facility] Work Phone: 1(376) 628-263303-28-2023 Evaluation + Plan noteExtracted from: Title:ED Note Author:Gerson Luz DO Date: Accidental fall (W19.XXXA: U nspecified fall, initial encounter) Closed head injury (S09.90XA: Unspecified injury of head, initial encounter) Facial contusion (S00.83XA: Contusion of other part of head, initial encounter) Orders: CT Head or Brain w/o Contrast CT Maxillofacial w/o Contrast CT Spine Cervical w/o Contrast [facility]03-28-2023 Hospital Discharge instructions Patient Education 07/11/2022 [...] balance. Talk with a physical therapist or process trainer if recommended by your health care [...] 03/30/2001 Document Revised: 03/15/2018 Document Reviewed: 11/14/2017 [employer] Patient Education 2020 [employer]. 07/11/2022 09:33:48 Head Injury, Adult Head Injury, [...] Ask your health care provider for a yjjd-mb-dzzj plan for gradually returning to activities. 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 Have them watch for any new or worsening problems. General instructions Take zfvh-ooc-ptepwst and prescription medicines only as told by [...] 04/02/2006 Document Revised: 04/30/2019 Document Reviewed: 04/25/2019 [employer] Patient Education 2020 [employer]. 07/11/2022 09:33:48 Facial or Scalp Contusion Facial [...] applying cold compresses to the injured area. Necm-rim-oxmgaku medicines may also be recommended for pain control. Follow these instructions at home: Take cymy-qoo-lcnmphd and prescription medicines only as told by [...] 05/10/2005 Document Revised: 03/15/2018 Document Reviewed: 02/20/2017 [employer] Patient Education 2020 [employer]. Follow Up Care 07/11/2022 08:10:05 With:Idalmis Lima Address: [address] [place], [place] [address]- Business (1) When:07/14/2022 09:33:22 Comments:Call the office [...] sleep, or any new or worsening symptoms. [facility]06-13-2022 History of Present illness Narrative* Pelon Hawthorne MD - 09/26/2021 3:30 PM EDT Images from the original note were not included. 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 acute Hypoxia acute Leukocytosis acute UTI (urinary tract infection) acute [facility] Work Phone: Hospital course Narrative No data available for this section [facility] No data available for this section [facility] Summary Purpose Family History No Family [...] and content) DATE CREATED AUTHOR 05/03/2022 [facility] DATE CREATED AUTHOR AUTHOR'S ORGANIZ ATION 06/22/2022 [facility] DATE CREATED AUTHOR AUTHOR'S ORGANIZ ATION 08/09/2022 [facility] DATE CREATED AUTHOR AUTHOR'S ORGANIZ ATION 08/10/2023 [facility] DATE CREATED AUTHOR AUTHOR'S ORGANIZ ATION 08/11/2023 [facility] Patient Care team informatio n [...] BE BASED ON THE PRIMARY CLINICAL RECORDS. [facility] [employer] provides no warranty or guarantee of the accuracy or completeness of information in this document.
[2023-08-17 09:19] LABS: Alanine Aminotransferase 15 U/L (16-63); Albumin Globulin Ratio 0.7; Albumin Level 2.7 g/dL (3.4-5.0); Alkaline Phosphatase 114 U/L (46-116); Anion Gap 11.2; Aspartate Amino Transferase 19 U/L (15-37); BUN Creatinine Ratio 16.9; Bilirubin Total 0.8 mg/dL (0.2-1.0); Calcium 9.5 mg/dL (8.5-10.1); Carbon Dioxide 31.9 mmol/L (21.0-32.0); Chloride 103 mmol/L (98-107); Estimated GFR (African America 53 (>=60); Estimated GFR (Non-African Ame 44 (>=60); Glucose 51 mg/dL (74-106); Potassium 4.1 mmol/L (3.5-5.1); Sodium 142 mmol/L (136-145); Total Protein 6.7 g/dL (6.4-8.2)
== END 2023-08-17 02:30 | disposition home or self-care (01) ==
LOC: LAB 02:29
PROVIDERS: PCP Family Medicine; Visit Provider Family Medicine
DX: R00.0 Tachycardia, unspecified (principal)
CPT/HCPCS: 36415; 80053

== ENCOUNTER 2023-08-20 15:37 | Outpatient (OUT) | payer OTHER, SELFPAY | END 2023-08-20 15:38 | disposition home or self-care (01) | LOC: WC 15:37 | PROVIDERS: PCP Family Medicine; Visit Provider Physician Assistant | DX: E11.622 Type 2 diabetes mellitus with other skin ulcer (principal); L97.322 Non-pressure chronic ulcer of left ankle with fat layer exposed; L97.422 Non-pressure chronic ulcer of left heel and midfoot with fat layer exposed | CPT/HCPCS: G0463 ==